=== PATIENT | male | born 1965 | race Caucasian/White ===

== ENCOUNTER 2023-08-23 18:47 | Inpatient (IN) ==
[2023-08-23] MEDS: EPINEPHrine/NSS 4 MG/254 ML BAG IV SCH (19:14)
[2023-08-23] MEDS ORDERED: EPINEPHrine/NSS 4 MG/254 ML BAG IV SCH (19:15)
[2023-08-23 19:24] LABS: iSTAT Creatinine 3.1 mg/dl (0.6-1.3); iSTAT Hemoglobin 12.6 g/dl (14.0-18.0); iSTAT Ionized Calcium 1.23 mmol/l (1.12-1.32); iSTAT Potassium 4.7 mmol/L (3.3-5.0)
[2023-08-23 19:24] LABS: iSTAT Arterial Blood Gas HCO3 39 meg/L (19-24); iSTAT Arterial Blood Gas pCO2 62 mmHg (35-46); iSTAT Arterial Blood Gas pO2 184 mmHg (80-95); iSTAT Carbon Dioxide > 40 mmol/L (24-31); iSTAT Hematocrit 32 % (42-52); iSTAT Hemoglobin 10.9 g/dl (14.0-18.0); iSTAT Potassium 3.7 mmol/L (3.3-5.0); iSTAT Sodium 144 mmol/L (135-144)
[2023-08-23 19:32] LABS: Hematocrit (blood only) 35.5 % (42.0-52.0); Hemoglobin 11.8 g/dl (14.0-18.0); Mean Corpuscular Hemoglobin 26.9 pg (25.0-34.0); Mean Corpuscular Hgb Conc 33.2 g/dL (32.0-36.0); Mean Corpuscular Volume 80.9 fL (80.0-100.0); Platelet Count 154 K/uL (130-400); RDW Coefficient of Variation 13.9 % (11.5-14.5); RDW Standard Deviation 40.7 fL (36.4-46.3); Red Blood Count 4.39 M/uL (4.70-6.10); White Blood Count 19.63 K/ul (4.8-10.8)
--- NOTE | 2023-08-23 19:43 | Emergency Department Note ---
Impression & Plan Cardiac arrest, Respiratory failure, Septic shock ED Provider Note NAME: MARITA LEONE AGE: 57 SEX: M : 1965 ARRIVES VIA: Ambulance INFORMANT: EMS ED PROVIDER(S): Fermin Webb DO CHIEF COMPLAINT: Unresponsive HPI: Patient is a 57-year-old male who presents to the ER brought in by EMS unresponsive. Per EMS he was found to be altered and unresponsive since around 5 PM tonight. They checked his blood sugars and they were in the mid 300s. Additional history was obtained from who eventually presented at bedside. She notes that on Monday patient was intermittently confused but he improved on Monday and Monday and was doing well. He was not feeling well this morning. She then found him unresponsive and called EMS later in the day. Patient has a reported history of aortic issues and cardiac issues. When they found him he was unresponsive and he was placed on 15 L nasal cannula as he was hypoxic. They believe that he is a full code. ADDITIONAL HISTORY OBTAINED: Per HPI Chronic Medical/Social Conditions Affecting Care: Per HPI PAST MEDICAL HISTORY:See Below PAST SURGICAL HISTORY:See Below FAMILY HISTORY:See Below SOCIAL HISTORY:See Below HOME MEDICATIONS:See Below ALLERGIES:See Below VITALS:See Below PHYSICAL EXAMINATION: GENERAL: Lying in bed unresponsive on 15 L, pulseless EYE EXAM: Pupils are 2 mm and reactive OROPHARYNX: Dry mucous membranes NECK: supple, no nuchal rigidity, no adenopathy, non-tender LUNGS: No respiratory effort HEART: No heart sounds ABDOMEN: abdomen soft, non-tender, normo-active bowel sounds, no masses, no rebound or guarding. BACK: Back is symmetrical on inspection and there is no deformity, no midline tenderness, no CVA tenderness. SKIN: no rashes and no bruising UPPER EXTREMITIES: upper extremities are grossly normal. LOWER EXTREMITIES: No pitting edema. NEURO EXAM: GCS 3 MEDICAL DECISION MAKING: Patient is a 57-year-old male who was brought in by EMS. Received medical command call and he was unresponsive on 15 L and hypotensive. Upon arrival to the ER he was found to be pulseless with no respiratory effort. GIANNI PAINTING was called. He was transferred to our stretcher and CPR started. He underwent 5 doses of epinephrine, 3 doses of bicarb and calcium gluconate. I performed a limited bedside ultrasound intermittently and eventually he regained ROSC on ultrasound. Initially patient was in PEA. I intubated him while CPR was in progress. Please see cook ice cream note as they placed a central line while I was intubating in the right groin. Once ROSC was obtained patient was given IV fluids and he slowly became hypotensive down to the 70s. Epinephrine drip was started. This titrated up to 0.4 mcg/kg. CT of the head, chest abdomen pelvis was obtained and showed bilateral pneumonia. ET tube was in place. Was given a total of 2.5 L of normal saline while in the ER and additional liter by EMS just prior to arrival for more than 30 cc/kg total. Patient was given vancomycin and IV Rocephin. Davis was placed and urine was showing dark and cloudy. Discussed with the and patient is a full code currently. Discussed with the hospitalist and patient was taken to the ICU following cardiac arrest and septic shock. Labs were remarkable for leukocytosis of 20,000 with a mild anemia 11. INR at 3.2. BMP is fairly unremarkable. Troponin was mildly elevated. Glucose was elevated at 320. Patient was placed on insulin drip. Lactate was elevated in the fours. T. bili LFTs shows a mild transaminitis. Troponin mildly up at 159. Procalcitonin was greater than 100. UA did show leuks, whites and +4 bacteria. Will cover both the urine at this time as well as pulmonary although I question of the pulmonary secondary to CPR/pulmonary contusions. This was discussed with again both the hospitalist and Jw who is on-call for the ICU. Patient was taken to the ICU emergently. Repeat physical exam following cardiac arrest patient was a GCS 3 T. He was intubated without the use of any medications. Throughout the stay in the ER epinephrine was titrated up and down appropriately to correlate with blood pressures which were waxing and waning. Of note EKG did show ST abnormalities although I favor this is all secondary to septic shock as discussed previously. Consults/Care Managements Discussions: Per MDM Triage Nursing notes reviewed. Limited review of prior medical records performed Vital Signs: reviewed and remarkable for hypoxic, pulseless Differential diagnosis: Differential diagnoses includes but is not limited to toxic, metabolic, infectious, traumatic, cardiac, neurologic, hematologic, psychiatric and inflammatory etiologies. ER treatment provided: See below Diagnostics interpreted by me include EKG and cardiac monitoring as listed below: -Cardiac Monitoring: An order was placed for continuous cardiac monitoring. The monitor shows a rate of 101 with sinus rhythm. -ECG: Sinus rhythm rate 98 Left axis PVCs Right bundle branch block ST depressions in the high lateral leads with T wave inversions Q waves in V3 and V4 Slight ST segment elevations in V3 and V4 -Laboratory studies:Interpreted by me as stated above in MDM and shown below. Imaging studies: Xrays: As interpreted by me: 1 view of the chest shows ET tube in place CTs show: CT of the head, chest abdomen pelvis as described above Procedures: Procedure #1: CPR was performed on room air my direction for 15 minutes following which the patient received 5 doses of epinephrine, 3 of bicarb and 1 calcium gluconate. Patient did have return of spontaneous circulation Procedure #2 EM PROCEDURE NOTE - Endotracheal Intubation PROCEDURE NOTE: Informed consent was not obtained by the patient. Verify Correct Patient: yes Procedure: Endotracheal intubation Indication: Cardiac arrest The procedure was done emergently. Description of the Procedure: The patient was seen and properly identified. The patient was pre-oxygenated and intubated after rapid sequence induction with meds: None. Intubation was performed using a glide 3.0 curve blade and a 7.5 cuffed endotracheal tube. The tube was visualized going through the cords and secured with the 23 cm maria guadalupe at the lips. The patient had good bilateral breath sounds in the axillae with good chest rise. Proper ET tube placement was confirmed by end tidal CO2 detector. The patient tolerated the procedure well. Critical Care: I have personally spent 130 minutes of critical care time in the direct management of this patient. This includes bedside care, interpretation of diagnostic studies, and testing, discussion with consultants, patient, and family members, and other required patient management activities. This 130 minutes is in excess of all separately billable procedures. Past Med/Surg History Social History Smoking Status: Unknown if ever smoked Feels Safe at Home: Yes Allergies Allergies Allergy/AdvReac Type Severity Reaction Status Date / Time bee venom protein (honey bee) Allergy Unknown Verified 08/23/23 20:23 Iodinated Contrast Media Allergy Hives Verified 08/23/23 20:23 Penicillins Allergy Hives Verified 08/23/23 20:23 Home Meds Home Medications Medication Instructions Recorded Confirmed allopurinol 100 mg tablet 100 mg PO QAM 08/23/23 08/23/23 amlodipine 10 mg tablet 10 mg PO QAM 08/23/23 08/23/23 aspirin 81 mg chewable tablet 81 mg PO DAILY 08/23/23 08/23/23 (Aspirin Childrens) atorvastatin 10 mg tablet 10 mg PO HS 08/23/23 08/23/23 carvedilol 25 mg tablet 25 mg PO BID 08/23/23 08/23/23 clonidine HCl 0.2 mg tablet 0.2 mg PO TID 08/23/23 08/23/23 famotidine 40 mg tablet 40 mg PO DAILYBB 08/23/23 08/23/23 furosemide 40 mg tablet 20 mg PO Q OTHER DAY 08/23/23 08/23/23 gabapentin 300 mg capsule 300 mg PO TID 08/23/23 08/23/23 montelukast 10 mg tablet 10 mg PO DAILY 08/23/23 08/23/23 pregabalin 150 mg capsule 150 mg PO BID 08/23/23 08/23/23 tamsulosin 0.4 mg capsule 0.4 mg PO QAM 08/23/23 08/23/23 warfarin 1 mg tablet 1 mg PO DAILY 08/23/23 08/23/23 warfarin 5 mg tablet 5 mg PO DAILY 08/23/23 08/23/23 Results & Data (ED) Vital Signs Vital Signs - 24 hr 08/23/23 18:49 08/23/23 18:52 08/23/23 18:55 Temperature Temperature Source Pulse Rate 0 L 136 H Pulse Rate from SpO2 Sensor Respiratory Rate 69 H Blood Pressure Blood Pressure Mean Pulse Oximetry 49 L Oxygen Delivery Method Fraction of Inspired Oxygen Sepsis Recent Fever Within 48 Hours Sepsis New/Unexplained Change in Mental Status Sepsis Action Taken by Nursing End-Tidal CO2 08/23/23 18:57 08/23/23 18:57 08/23/23 19:00 Temperature 38.0 C H Temperature Source Skin Pulse Rate 0 L Pulse Rate from SpO2 Sensor Respiratory Rate 6 L Blood Pressure 60/32 L Blood Pressure Mean 39 Pulse Oximetry Oxygen Delivery Method Fraction of Inspired Oxygen Sepsis Recent Fever Within 48 Hours No Sepsis New/Unexplained Change in Mental Status No Sepsis Action Taken by Nursing No Action Required End-Tidal CO2 77 08/23/23 19:00 08/23/23 19:03 08/23/23 19:04 Temperature Temperature Source Pulse Rate 34 L 100 H Pulse Rate from SpO2 Sensor 103 H Respiratory Rate 25 H Blood Pressure 114/69 Blood Pressure Mean 77 Pulse Oximetry 84 L Oxygen Delivery Method Ambu-Bag Fraction of Inspired Oxygen Sepsis Recent Fever Within 48 Hours Sepsis New/Unexplained Change in Mental Status Sepsis Action Taken by Nursing End-Tidal CO2 56 08/23/23 19:04 08/23/23 19:05 08/23/23 19:10 Temperature Temperature Source Pulse Rate 98 H 95 H 119 H Pulse Rate from SpO2 Sensor 95 H 93 H 117 H Respiratory Rate 26 H 28 H 36 H Blood Pressure Blood Pressure Mean Pulse Oximetry 95 94 100 Oxygen Delivery Method Ambu-Bag Ambu-Bag Ambu-Bag Fraction of Inspired Oxygen Sepsis Recent Fever Within 48 Hours Sepsis New/Unexplained Change in Mental Status Sepsis Action Taken by Nursing End-Tidal CO2 67 52 33 08/23/23 19:10 08/23/23 19:11 08/23/23 19:11 Temperature Temperature Source Pulse Rate 103 H Pulse Rate from SpO2 Sensor 108 H Respiratory Rate 28 H Blood Pressure 74/56 L 94/60 L Blood Pressure Mean 61 69 Pulse Oximetry 100 Oxygen Delivery Method Mechanical Vent Fraction of Inspired Oxygen Sepsis Recent Fever Within 48 Hours Sepsis New/Unexplained Change in Mental Status Sepsis Action Taken by Nursing End-Tidal CO2 38 08/23/23 19:13 08/23/23 19:13 08/23/23 19:15 Temperature Temperature Source Pulse Rate 120 H Pulse Rate from SpO2 Sensor 103 H Respiratory Rate 31 H Blood Pressure 91/66 L 79/56 L Blood Pressure Mean 75 65 Pulse Oximetry 99 Oxygen Delivery Method Mechanical Vent Fraction of Inspired Oxygen Sepsis Recent Fever Within 48 Hours Sepsis New/Unexplained Change in Mental Status Sepsis Action Taken by Nursing End-Tidal CO2 27 08/23/23 19:15 08/23/23 19:16 08/23/23 19:16 Temperature Temperature Source Pulse Rate 108 H 109 H Pulse Rate from SpO2 Sensor 110 H 105 H Respiratory Rate 26 H 27 H Blood Pressure 83/54 L Blood Pressure Mean 61 Pulse Oximetry 100 100 Oxygen Delivery Method Mechanical Vent Mechanical Vent Fraction of Inspired Oxygen Sepsis Recent Fever Within 48 Hours Sepsis New/Unexplained Change in Mental Status Sepsis Action Taken by Nursing End-Tidal CO2 35 33 08/23/23 19:18 08/23/23 19:18 08/23/23 19:19 Temperature Temperature Source Pulse Rate 108 H 115 H Pulse Rate from SpO2 Sensor 117 H 108 H Respiratory Rate 25 H 25 H Blood Pressure 84/46 L Blood Pressure Mean 62 Pulse Oximetry 96 98 Oxygen Delivery Method Mechanical Vent Mechanical Vent Fraction of Inspired Oxygen Sepsis Recent Fever Within 48 Hours Sepsis New/Unexplained Change in Mental Status Sepsis Action Taken by Nursing End-Tidal CO2 29 33 08/23/23 19:19 08/23/23 19:20 08/23/23 19:21 Temperature Temperature Source Pulse Rate 117 H Pulse Rate from SpO2 Sensor 116 H 110 H Respiratory Rate 27 H 24 Blood Pressure 74/48 L Blood Pressure Mean 58 Pulse Oximetry 98 100 Oxygen Delivery Method Mechanical Vent Mechanical Vent Fraction of Inspired Oxygen Sepsis Recent Fever Within 48 Hours Sepsis New/Unexplained Change in Mental Status Sepsis Action Taken by Nursing End-Tidal CO2 29 33 08/23/23 19:21 08/23/23 19:23 08/23/23 19:23 Temperature Temperature Source Pulse Rate 115 H Pulse Rate from SpO2 Sensor 115 H Respiratory Rate 27 H Blood Pressure 78/40 L 90/73 L Blood Pressure Mean 63 78 Pulse Oximetry 100 Oxygen Delivery Method Mechanical Vent Fraction of Inspired Oxygen Sepsis Recent Fever Within 48 Hours Sepsis New/Unexplained Change in Mental Status Sepsis Action Taken by Nursing End-Tidal CO2 30 08/23/23 19:25 08/23/23 19:25 08/23/23 19:27 Temperature Temperature Source Pulse Rate 113 H 99 H Pulse Rate from SpO2 Sensor 113 H 101 H Respiratory Rate 24 22 Blood Pressure 117/101 H Blood Pressure Mean 109 Pulse Oximetry 99 100 Oxygen Delivery Method Mechanical Vent Mechanical Vent Fraction of Inspired Oxygen Sepsis Recent Fever Within 48 Hours Sepsis New/Unexplained Change in Mental Status Sepsis Action Taken by Nursing End-Tidal CO2 33 32 08/23/23 19:27 08/23/23 19:41 08/23/23 19:48 Temperature 40.6 C H Temperature Source Pulse Rate 94 H Pulse Rate from SpO2 Sensor Respiratory Rate 20 Blood Pressure 81/54 L Blood Pressure Mean 63 Pulse Oximetry 97 99 Oxygen Delivery Method Mechanical Vent Fraction of Inspired Oxygen Sepsis Recent Fever Within 48 Hours Sepsis New/Unexplained Change in Mental Status Sepsis Action Taken by Nursing End-Tidal CO2 33 08/23/23 19:48 08/23/23 19:53 08/23/23 19:53 Temperature 40.6 C H Temperature Source Pulse Rate 94 H Pulse Rate from SpO2 Sensor 172 H Respiratory Rate 22 Blood Pressure 73/45 L 91/53 L Blood Pressure Mean 55 62 Pulse Oximetry 94 Oxygen Delivery Method Fraction of Inspired Oxygen Sepsis Recent Fever Within 48 Hours Sepsis New/Unexplained Change in Mental Status Sepsis Action Taken by Nursing End-Tidal CO2 32 08/23/23 19:54 08/23/23 19:54 08/23/23 19:54 Temperature 40.6 C H Temperature Source Pulse Rate 92 H Pulse Rate from SpO2 Sensor 172 H Respiratory Rate 20 Blood Pressure Blood Pressure Mean Pulse Oximetry 97 Oxygen Delivery Method Mechanical Vent Mechanical Vent Fraction of Inspired Oxygen Sepsis Recent Fever Within 48 Hours Sepsis New/Unexplained Change in Mental Status Sepsis Action Taken by Nursing End-Tidal CO2 33 08/23/23 19:54 08/23/23 19:55 08/23/23 19:56 Temperature 40.6 C H 40.7 C H Temperature Source Pulse Rate 92 H 93 H Pulse Rate from SpO2 Sensor 164 H 157 H Respiratory Rate 21 24 Blood Pressure 94/53 L Blood Pressure Mean 72 Pulse Oximetry 99 94 Oxygen Delivery Method Fraction of Inspired Oxygen Sepsis Recent Fever Within 48 Hours Sepsis New/Unexplained Change in Mental Status Sepsis Action Taken by Nursing End-Tidal CO2 33 32 08/23/23 19:56 08/23/23 19:57 08/23/23 19:57 Temperature 40.6 C H Temperature Source Pulse Rate 94 H Pulse Rate from SpO2 Sensor 154 H Respiratory Rate 20 Blood Pressure 93/41 L 76/37 L Blood Pressure Mean 54 51 Pulse Oximetry 100 Oxygen Delivery Method Fraction of Inspired Oxygen Sepsis Recent Fever Within 48 Hours Sepsis New/Unexplained Change in Mental Status Sepsis Action Taken by Nursing End-Tidal CO2 33 08/23/23 19:59 08/23/23 19:59 08/23/23 19:59 Temperature 40.7 C H Temperature Source Pulse Rate 90 Pulse Rate from SpO2 Sensor 90 Respiratory Rate 21 Blood Pressure 75/41 L 67/46 L Blood Pressure Mean 51 54 Pulse Oximetry 100 Oxygen Delivery Method Fraction of Inspired Oxygen Sepsis Recent Fever Within 48 Hours Sepsis New/Unexplained Change in Mental Status Sepsis Action Taken by Nursing End-Tidal CO2 34 08/23/23 20:00 08/23/23 20:01 08/23/23 20:01 Temperature 40.7 C H 40.7 C H Temperature Source Pulse Rate 92 H 93 H Pulse Rate from SpO2 Sensor 91 H 92 H Respiratory Rate 21 22 Blood Pressure 84/54 L Blood Pressure Mean 67 Pulse Oximetry 100 100 Oxygen Delivery Method Fraction of Inspired Oxygen Sepsis Recent Fever Within 48 Hours Sepsis New/Unexplained Change in Mental Status Sepsis Action Taken by Nursing End-Tidal CO2 32 34 08/23/23 20:02 08/23/23 20:02 08/23/23 20:03 Temperature 40.7 C H 40.7 C H Temperature Source Pulse Rate 94 H 92 H Pulse Rate from SpO2 Sensor 94 H 88 Respiratory Rate 21 20 Blood Pressure 88/65 L Blood Pressure Mean 73 Pulse Oximetry 100 100 Oxygen Delivery Method Fraction of Inspired Oxygen Sepsis Recent Fever Within 48 Hours Sepsis New/Unexplained Change in Mental Status Sepsis Action Taken by Nursing End-Tidal CO2 33 33 08/23/23 20:03 08/23/23 20:04 08/23/23 20:04 Temperature 40.7 C H Temperature Source Pulse Rate 92 H Pulse Rate from SpO2 Sensor 93 H Respiratory Rate 21 Blood Pressure 90/53 L 88/54 L Blood Pressure Mean 70 71 Pulse Oximetry 100 Oxygen Delivery Method Fraction of Inspired Oxygen Sepsis Recent Fever Within 48 Hours Sepsis New/Unexplained Change in Mental Status Sepsis Action Taken by Nursing End-Tidal CO2 34 08/23/23 20:05 08/23/23 20:05 08/23/23 20:06 Temperature 40.7 C H 40.7 C H Temperature Source Pulse Rate 92 H 90 Pulse Rate from SpO2 Sensor 89 89 Respiratory Rate 21 21 Blood Pressure 90/51 L Blood Pressure Mean 70 Pulse Oximetry 100 100 Oxygen Delivery Method Fraction of Inspired Oxygen Sepsis Recent Fever Within 48 Hours Sepsis New/Unexplained Change in Mental Status Sepsis Action Taken by Nursing End-Tidal CO2 34 34 08/23/23 20:06 08/23/23 20:07 08/23/23 20:07 Temperature 40.7 C H Temperature Source Pulse Rate 87 Pulse Rate from SpO2 Sensor 86 Respiratory Rate 21 Blood Pressure 94/52 L 90/55 L Blood Pressure Mean 72 68 Pulse Oximetry 100 Oxygen Delivery Method Fraction of Inspired Oxygen Sepsis Recent Fever Within 48 Hours Sepsis New/Unexplained Change in Mental Status Sepsis Action Taken by Nursing End-Tidal CO2 35 08/23/23 20:08 08/23/23 20:08 08/23/23 20:08 Temperature 40.7 C H Temperature Source Pulse Rate 96 H 86 Pulse Rate from SpO2 Sensor 87 Respiratory Rate 21 18 Blood Pressure 88/54 L Blood Pressure Mean 69 Pulse Oximetry 98 100 Oxygen Delivery Method Fraction of Inspired Oxygen 70 Sepsis Recent Fever Within 48 Hours Sepsis New/Unexplained Change in Mental Status Sepsis Action Taken by Nursing End-Tidal CO2 32 34 08/23/23 20:09 08/23/23 20:09 08/23/23 20:10 Temperature 40.7 C H 40.7 C H Temperature Source Pulse Rate 85 92 H Pulse Rate from SpO2 Sensor 87 92 H Respiratory Rate 20 19 Blood Pressure 91/57 L Blood Pressure Mean 65 Pulse Oximetry 100 100 Oxygen Delivery Method Fraction of Inspired Oxygen Sepsis Recent Fever Within 48 Hours Sepsis New/Unexplained Change in Mental Status Sepsis Action Taken by Nursing End-Tidal CO2 36 35 08/23/23 20:10 08/23/23 20:12 08/23/23 20:12 Temperature 40.7 C H Temperature Source Pulse Rate 83 Pulse Rate from SpO2 Sensor 85 Respiratory Rate 20 Blood Pressure 79/48 L 92/52 L Blood Pressure Mean 64 67 Pulse Oximetry 100 Oxygen Delivery Method Fraction of Inspired Oxygen Sepsis Recent Fever Within 48 Hours Sepsis New/Unexplained Change in Mental Status Sepsis Action Taken by Nursing End-Tidal CO2 35 08/23/23 20:13 08/23/23 20:13 08/23/23 20:14 Temperature 40.7 C H 40.7 C H Temperature Source Pulse Rate 82 84 Pulse Rate from SpO2 Sensor 82 85 Respiratory Rate 20 19 Blood Pressure 94/54 L Blood Pressure Mean 61 Pulse Oximetry 99 99 Oxygen Delivery Method Fraction of Inspired Oxygen Sepsis Recent Fever Within 48 Hours Sepsis New/Unexplained Change in Mental Status Sepsis Action Taken by Nursing End-Tidal CO2 35 35 08/23/23 20:14 08/23/23 20:15 08/23/23 20:15 Temperature 40.7 C H Temperature Source Pulse Rate 83 Pulse Rate from SpO2 Sensor 83 Respiratory Rate 20 Blood Pressure 91/58 L 93/54 L Blood Pressure Mean 68 61 Pulse Oximetry 99 Oxygen Delivery Method Fraction of Inspired Oxygen Sepsis Recent Fever Within 48 Hours Sepsis New/Unexplained Change in Mental Status Sepsis Action Taken by Nursing End-Tidal CO2 35 08/23/23 20:16 08/23/23 20:16 08/23/23 20:17 Temperature 40.7 C H 40.7 C H Temperature Source Pulse Rate 92 H 83 Pulse Rate from SpO2 Sensor 85 84 Respiratory Rate 19 18 Blood Pressure 88/51 L Blood Pressure Mean 58 Pulse Oximetry 99 99 Oxygen Delivery Method Fraction of Inspired Oxygen Sepsis Recent Fever Within 48 Hours Sepsis New/Unexplained Change in Mental Status Sepsis Action Taken by Nursing End-Tidal CO2 35 34 08/23/23 20:17 08/23/23 20:18 08/23/23 20:18 Temperature 40.7 C H Temperature Source Pulse Rate 82 Pulse Rate from SpO2 Sensor 84 Respiratory Rate 20 Blood Pressure 89/62 L 99/56 L Blood Pressure Mean 69 69 Pulse Oximetry 98 Oxygen Delivery Method Fraction of Inspired Oxygen Sepsis Recent Fever Within 48 Hours Sepsis New/Unexplained Change in Mental Status Sepsis Action Taken by Nursing End-Tidal CO2 35 08/23/23 20:19 08/23/23 20:19 08/23/23 20:20 Temperature 40.7 C H 40.7 C H Temperature Source Pulse Rate 82 80 Pulse Rate from SpO2 Sensor 83 81 Respiratory Rate 20 19 Blood Pressure 93/60 L Blood Pressure Mean 67 Pulse Oximetry 98 98 Oxygen Delivery Method Fraction of Inspired Oxygen Sepsis Recent Fever Within 48 Hours Sepsis New/Unexplained Change in Mental Status Sepsis Action Taken by Nursing End-Tidal CO2 34 34 08/23/23 20:20 08/23/23 20:22 08/23/23 20:22 Temperature 40.6 C H Temperature Source Pulse Rate 89 Pulse Rate from SpO2 Sensor 86 Respiratory Rate 18 Blood Pressure 77/53 L 99/60 L Blood Pressure Mean 57 70 Pulse Oximetry 98 Oxygen Delivery Method Fraction of Inspired Oxygen Sepsis Recent Fever Within 48 Hours Sepsis New/Unexplained Change in Mental Status Sepsis Action Taken by Nursing End-Tidal CO2 35 08/23/23 20:23 08/23/23 20:23 08/23/23 20:25 Temperature 40.6 C H 40.6 C H Temperature Source Pulse Rate 81 82 Pulse Rate from SpO2 Sensor 82 83 Respiratory Rate 18 19 Blood Pressure 81/54 L Blood Pressure Mean 66 Pulse Oximetry 98 98 Oxygen Delivery Method Fraction of Inspired Oxygen Sepsis Recent Fever Within 48 Hours Sepsis New/Unexplained Change in Mental Status Sepsis Action Taken by Nursing End-Tidal CO2 36 35 08/23/23 20:25 08/23/23 20:26 08/23/23 20:26 Temperature 40.6 C H Temperature Source Pulse Rate 82 Pulse Rate from SpO2 Sensor 82 Respiratory Rate 18 Blood Pressure 106/56 L 105/59 L Blood Pressure Mean 71 69 Pulse Oximetry 99 Oxygen Delivery Method Fraction of Inspired Oxygen Sepsis Recent Fever Within 48 Hours Sepsis New/Unexplained Change in Mental Status Sepsis Action Taken by Nursing End-Tidal CO2 36 08/23/23 20:27 08/23/23 20:27 08/23/23 20:28 Temperature 40.6 C H 40.6 C H Temperature Source Pulse Rate 80 81 Pulse Rate from SpO2 Sensor 82 84 Respiratory Rate 19 18 Blood Pressure 102/57 L Blood Pressure Mean 71 Pulse Oximetry 98 98 Oxygen Delivery Method Fraction of Inspired Oxygen Sepsis Recent Fever Within 48 Hours Sepsis New/Unexplained Change in Mental Status Sepsis Action Taken by Nursing End-Tidal CO2 35 34 08/23/23 20:28 08/23/23 20:29 08/23/23 20:29 Temperature 40.6 C H Temperature Source Pulse Rate 83 Pulse Rate from SpO2 Sensor 84 Respiratory Rate 18 Blood Pressure 89/67 L 101/56 L Blood Pressure Mean 74 70 Pulse Oximetry 98 Oxygen Delivery Method Fraction of Inspired Oxygen Sepsis Recent Fever Within 48 Hours Sepsis New/Unexplained Change in Mental Status Sepsis Action Taken by Nursing End-Tidal CO2 35 08/23/23 20:30 08/23/23 20:30 08/23/23 20:31 Temperature 40.5 C H Temperature Source Pulse Rate 84 Pulse Rate from SpO2 Sensor 87 Respiratory Rate 19 Blood Pressure 99/58 L 97/57 L Blood Pressure Mean 77 77 Pulse Oximetry 98 Oxygen Delivery Method Fraction of Inspired Oxygen Sepsis Recent Fever Within 48 Hours Sepsis New/Unexplained Change in Mental Status Sepsis Action Taken by Nursing End-Tidal CO2 35 08/23/23 20:31 08/23/23 20:32 08/23/23 20:32 Temperature 40.5 C H 40.5 C H Temperature Source Pulse Rate 81 87 Pulse Rate from SpO2 Sensor 82 87 Respiratory Rate 19 18 Blood Pressure 98/58 L Blood Pressure Mean 80 Pulse Oximetry 98 98 Oxygen Delivery Method Fraction of Inspired Oxygen Sepsis Recent Fever Within 48 Hours Sepsis New/Unexplained Change in Mental Status Sepsis Action Taken by Nursing End-Tidal CO2 35 34 08/23/23 20:33 08/23/23 20:33 08/23/23 20:34 Temperature 40.5 C H Temperature Source Pulse Rate 80 Pulse Rate from SpO2 Sensor 81 Respiratory Rate 20 Blood Pressure 106/54 L 100/57 L Blood Pressure Mean 68 74 Pulse Oximetry 98 Oxygen Delivery Method Fraction of Inspired Oxygen Sepsis Recent Fever Within 48 Hours Sepsis New/Unexplained Change in Mental Status Sepsis Action Taken by Nursing [facility]2 36 08/23/23 20:34 08/23/23 20:35 08/23/23 20:35 Temperature 40.5 C H 40.5 C H Temperature Source Pulse Rate 81 85 Pulse Rate from SpO2 Sensor 82 87 Respiratory Rate 20 19 Blood Pressure 99/61 L Blood Pressure Mean 82 Pulse Oximetry 98 98 Oxygen Delivery Method Fraction of Inspired Oxygen Sepsis Recent Fever Within 48 Hours Sepsis New/Unexplained Change in Mental Status Sepsis Action Taken by Nursing [facility]2 35 34 08/23/23 20:36 08/23/23 20:36 08/23/23 20:37 Temperature 40.5 C H 40.4 C H Temperature Source Pulse Rate 91 H 84 Pulse Rate from SpO2 Sensor 89 84 Respiratory Rate 20 19 Blood Pressure 99/63 L Blood Pressure Mean 78 Pulse Oximetry 98 98 Oxygen Delivery Method Fraction of Inspired Oxygen Sepsis Recent Fever Within 48 Hours Sepsis New/Unexplained Change in Mental Status Sepsis Action Taken by Nursing [facility]Tidal CO2 34 34 08/23/23 20:37 08/23/23 20:38 08/23/23 20:38 Temperature 40.4 C H Temperature Source Pulse Rate 83 Pulse Rate from SpO2 Sensor 84 Respiratory Rate 18 Blood Pressure 116/62 96/61 L Blood Pressure Mean 76 69 Pulse Oximetry 98 Oxygen Delivery Method Fraction of Inspired Oxygen Sepsis Recent Fever Within 48 Hours Sepsis New/Unexplained Change in Mental Status Sepsis Action Taken by Nursing End-Tidal CO2 34 08/23/23 20:39 08/23/23 20:39 08/23/23 20:40 Temperature 40.4 C H 40.4 C H Temperature Source Pulse Rate 87 90 Pulse Rate from SpO2 Sensor 85 88 Respiratory Rate 19 27 H Blood Pressure 89/61 L Blood Pressure Mean 77 Pulse Oximetry 98 99 Oxygen Delivery Method Fraction of Inspired Oxygen Sepsis Recent Fever Within 48 Hours Sepsis New/Unexplained Change in Mental Status Sepsis Action Taken by Nursing [facility]-T[facility] CO2 34 29 08/23/23 20:40 08/23/23 20:41 08/23/23 20:41 Temperature 40.4 C H Temperature Source Pulse Rate 85 Pulse Rate from SpO2 Sensor 84 Respiratory Rate 19 Blood Pressure 107/63 103/64 Blood Pressure Mean 69 76 Pulse Oximetry 98 Oxygen Delivery Method Fraction of Inspired Oxygen Sepsis Recent Fever Within 48 Hours Sepsis New/Unexplained Change in Mental Status Sepsis Action Taken by Nursing [facility]-Tidal CO2 34 08/23/23 20:42 08/23/23 20:42 08/23/23 20:43 Temperature 40.3 C H 40.3 C H Temperature Source Pulse Rate 85 85 Pulse Rate from SpO2 Sensor 84 87 Respiratory Rate 24 19 Blood Pressure 100/62 Blood Pressure Mean 66 Pulse Oximetry 98 98 Oxygen Delivery Method Fraction of Inspired Oxygen Sepsis Recent Fever Within 48 Hours Sepsis New/Unexplained Change in Mental Status Sepsis Action Taken by Nursing [facility]2 31 33 08/23/23 20:43 Temperature Temperature Source Pulse Rate Pulse Rate from SpO2 Sensor Respiratory Rate Blood Pressure 105/62 Blood Pressure Mean 87 Pulse Oximetry Oxygen Delivery Method Fraction of Inspired Oxygen Sepsis Recent Fever Within 48 Hours Sepsis New/Unexplained Change in Mental Status Sepsis Action Taken by Nursing [facility] Laboratory Data 08/23/23 19:08 08/23/23 19:08 Lab Results 08/23/23 08/23/23 08/23/23 Range/Units 19:04 19:08 19:10 WBC 19.63 H (4.8-10.8) K/ul RBC 4.39 L (4.70-6.10) M/uL Hgb 11.8 L (14.0-18.0) g/dl POC Hgb 12.6 L 10.9 L (14.0-18.0) g/dl Hct 35.5 L (42.0-52.0) % POC Hct 37 L 32 L (42-52) % MCV 80.9 (80.0-100.0) fL MCH 26.9 (25.0-34.0) pg MCHC 33.2 (32.0-36.0) g/dL RDW Std Deviation 40.7 (36.4-46.3) fL RDW Coeff of Malika 13.9 (11.5-14.5) % Plt Count 154 (130-400) K/uL MPV 11.0 (9.4-12.4) fL Immature Gran % (Auto) 2.0 % Neut % (Auto) 85.6 % Lymph % (Auto) 7.4 % Page % (Auto) 4.3 % Eos % (Auto) 0.3 % Baso % (Auto) 0.4 % Neut # (Auto) 16.81 H (1.40-6.50) K/uL Lymph # (Auto) 1.45 (1.20-3.40) K/uL Page # (Auto) 0.85 H (0.11-0.59) K/uL Eos # (Auto) 0.06 (0.00-0.50) K/uL Baso # (Auto) 0.07 (0.00-0.20) K/uL Immature Gran # (Auto) 0.39 H (0.01-0.20) K/uL Basophilic Stippling Occasional POC pH 7.40 (7.35-7.45) POC pCO2 62 H (35-46) mmHg POC pO2 184 H (80-95) mmHg POC HCO3 39 H (19-24) mitra/L POC Base Excess 14.0 H (-9-1.8) mirta/L POC ABG O2 Sat 100.0 H (90-95) % POC Sodium 133 L 144 (135-144) mmol/L Sodium 139 (136-145) mmol/L POC Potassium 4.7 3.7 (3.3-5.0) mmol/L Potassium 4.0 (3.5-5.1) mmol/L POC Chloride 99 L (101-112) mmol/L Chloride 100 (98-107) mmol/L Carbon Dioxide 32 (21-32) mmol/L POC Total CO2 27 > 40 H* (24-31) mmol/L Anion Gap 7 (3-11) POC Anion Gap 12.0 L (16-25) mmol/L POC BUN 46 H (7-18) mg/dl BUN 52 H (6-23) mg/dl Creatinine 2.70 H (0.6-1.4) mg/dl POC Creatinine 3.1 H (0.6-1.3) mg/dl Est Cr Clr Drug Dosing 32.7 ml/min Est GFR ( Amer) 28.8 ml/min Est GFR (Non-Af Amer) 24.9 ml/min BUN/Creatinine Ratio 19.3 (10-20) Glucose 326 H* (70-99(Fasting)) mg/dl POC Glucose (70-99) mg/dl POC Glucose (other) 316 H (70-99) mg/dl Lactate 4.8 H* (0.4-2.0) mmol/L Calcium 8.7 (8.6-10.3) mg/dl POC Ioniz Calcium Alisha 1.23 (1.12-1.32) mmol/l Magnesium 1.9 (1.7-2.4) mg/dl Total Bilirubin 1.1 H (0.2-1.0) mg/dl Direct Bilirubin 0.6 H (0-0.2) mg/dl AST 176 H (13-39) U/L ALT 109 H (7-52) U/L Alkaline Phosphatase 201 H (34-104) U/L Troponin I High Sens 29.1 H (0-20) pg/ml Total Protein 5.0 L (6.0-8.3) gm/dl Albumin 2.1 L (3.4-5.0) gm/dl Procalcitonin > 100.00 H (0-0.5) ng/ml Urine Color Urine Appearance (Clear) Urine pH (4.5-7.5) Ur Specific Opp (1.000-1.030) Urine Protein (Negative) Urine Glucose (UA) (Negative) Urine Ketones (Negative) Urine Blood (Negative) Urine Nitrite (Negative) Urine Bilirubin (Negative) Urine Urobilinogen (Negative) Ur Leukocyte Esterase (Negative) Urine WBC (Auto) (0-5) /hpf Urine RBC (Auto) (0-2) /hpf U Hyaline Cast (Auto) (0-2) /lpf U Epithel Cells (Auto) (0-2) /hpf Urine Bacteria (Auto) (None Seen) 08/23/23 08/23/23 Range/Units 19:16 20:26 WBC (4.8-10.8) K/ul RBC (4.70-6.10) M/uL Hgb (14.0-18.0) g/dl POC Hgb (14.0-18.0) g/dl Hct (42.0-52.0) % POC Hct (42-52) % MCV (80.0-100.0) fL MCH (25.0-34.0) pg MCHC (32.0-36.0) g/dL RDW Std Deviation (36.4-46.3) fL RDW Coeff of Malika (11.5-14.5) % Plt Count (130-400) K/uL MPV (9.4-12.4) fL Immature Gran % (Auto) % Neut % (Auto) % Lymph % (Auto) % Page % (Auto) % Eos % (Auto) % Baso % (Auto) % Neut # (Auto) (1.40-6.50) K/uL Lymph # (Auto) (1.20-3.40) K/uL Page # (Auto) (0.11-0.59) K/uL Eos # (Auto) (0.00-0.50) K/uL Baso # (Auto) (0.00-0.20) K/uL Immature Gran # (Auto) (0.01-0.20) K/uL Basophilic Stippling POC pH (7.35-7.45) POC pCO2 (35-46) mmHg POC pO2 (80-95) mmHg POC HCO3 (19-24) mirta/L POC Base Excess (-9-1.8) mirta/L POC ABG O2 Sat (90-95) % POC Sodium (135-144) mmol/L Sodium (136-145) mmol/L POC Potassium (3.3-5.0) mmol/L Potassium (3.5-5.1) mmol/L POC Chloride (101-112) mmol/L Chloride (98-107) mmol/L Carbon Dioxide (21-32) mmol/L POC Total CO2 (24-31) mmol/L Anion Gap (3-11) POC Anion Gap (16-25) mmol/L POC BUN (7-18) mg/dl BUN (6-23) mg/dl Creatinine (0.6-1.4) mg/dl POC Creatinine (0.6-1.3) mg/dl Est Cr Clr Drug Dosing ml/min Est GFR ( Amer) ml/min Est GFR (Non-Af Amer) ml/min BUN/Creatinine Ratio (10-20) Glucose (70-99(Fasting)) mg/dl POC Glucose 309 H* (70-99) mg/dl POC Glucose (other) (70-99) mg/dl Lactate (0.4-2.0) mmol/L Calcium (8.6-10.3) mg/dl POC Ioniz Calcium Alisha (1.12-1.32) mmol/l Magnesium (1.7-2.4) mg/dl Total Bilirubin (0.2-1.0) mg/dl Direct Bilirubin (0-0.2) mg/dl AST (13-39) U/L ALT (7-52) U/L Alkaline Phosphatase (34-104) U/L Troponin I High Sens (0-20) pg/ml Total Protein (6.0-8.3) gm/dl Albumin (3.4-5.0) gm/dl Procalcitonin (0-0.5) ng/ml Urine Color Dark Yellow Urine Appearance Turbid A (Clear) Urine pH 8.5 H (4.5-7.5) Ur Specific Opp 1.016 (1.000-1.030) Urine Protein 2+ H (Negative) Urine Glucose (UA) 1+ H (Negative) Urine Ketones Negative (Negative) Urine Blood 3+ H (Negative) Urine Nitrite Negative (Negative) Urine Bilirubin 1+ H (Negative) Urine Urobilinogen Negative (Negative) Ur Leukocyte Esterase 3+ H (Negative) Urine WBC (Auto) >50 H (0-5) /hpf Urine RBC (Auto) >20 H (0-2) /hpf U Hyaline Cast (Auto) 0-2 (0-2) /lpf U Epithel Cells (Auto) 6-10 H (0-2) /hpf Urine Bacteria (Auto) 4+ H (None Seen) Administered Medications Linezolid (Zyvox) 600 mg in 300 mls @ 300 mls/hr IV Q12H [facility] Stop: 08/30/23 20:59 Last Admin: 08/23/23 22:49 Dose: 300 mls/hr Documented By: CRYSTAL Meropenem 500 mg/ Syringe 10 mls @ 2 mls/min IV Q8H [facility]; Protocol Stop: 08/30/23 20:59 Last Admin: 08/23/23 22:50 Dose: 2 mls/min Documented By: CRYSTAL Parenteral Electrolytes (Plasma-Lyte A Ph 7.4) 1,000 mls @ 100 mls/hr IV .Q10H [facility] Stop: 09/22/23 21:59 Last Admin: 08/23/23 23:19 Dose: 100 mls/hr Documented By: CRYSTAL Vasopressin 20 units/ Sodium (Chloride) 101 mls @ 12.12 mls/hr IV .Q8H20M [facility] Stop: 09/22/23 22:14 Last Admin: 08/23/23 22:39 Dose: 0.04 unit/min, 12.1 mls/hr Documented By: CRYSTAL Co-signed By: SHELIA Epinephrine HCl () 8 mg in 250 mls @ 60 mls/hr IV .Q4H10M [facility]; Protocol Stop: 09/22/23 22:14 Last Titration: 08/23/23 23:34 Dose: 0.5 mcg/kg/min, 75 mls/hr Documented By: Titration: 08/23/23 23:29 Dose: 0.49 mcg/kg/min, 73.5 mls/hr Documented By: Titration: 08/23/23 23:24 Dose: 0.48 mcg/kg/min, 72 mls/hr Documented By: Titration: 08/23/23 23:19 Dose: 0.47 mcg/kg/min, 70.5 mls/hr Documented By: Titration: 08/23/23 23:14 Dose: 0.46 mcg/kg/min, 69 mls/hr Documented By: Titration: 08/23/23 23:09 Dose: 0.45 mcg/kg/min, 67.5 mls/hr Documented By: Titration: 08/23/23 23:04 Dose: 0.44 mcg/kg/min, 66 mls/hr Documented By: Titration: 08/23/23 22:59 Dose: 0.43 mcg/kg/min, 64.5 mls/hr Documented By: Titration: 08/23/23 22:54 Dose: 0.42 mcg/kg/min, 63 mls/hr Documented By: Titration: 08/23/23 22:40 Dose: 0.41 mcg/kg/min, 61.5 mls/hr Documented By: Admin: 08/23/23 22:35 Dose: 0.4 mcg/kg/min, 60 mls/hr Documented By: MNM Co-signed By: SHELIA Propofol (Diprivan) 1,000 mg in 100 mls @ 9.6 mls/hr IV .[id number] [facility]; Protocol Stop: 08/26/23 22:11 Last Admin: 08/23/23 23:10 Dose: Not Given Documented By: MNM Heparin Sodium/Dextrose (Heparin Sodium/Dextrose) 25,000 units in 500 mls @ 19 mls/hr IV .Q24H [facility]; Protocol Stop: 09/22/23 22:11 Last Admin: 08/23/23 23:42 Dose: Not Given Documented By: MNM Norepinephrine Bitartrate (Levophed/D5w) 4 mg in 250 mls @ 42 mls/hr IV .Q5H58M [facility]; Protocol Stop: 09/22/23 22:11 Last Titration: 08/23/23 23:23 Dose: 0.14 mcg/kg/min, 42 mls/hr Documented By: Titration: 08/23/23 23:18 Dose: 0.12 mcg/kg/min, 36 mls/hr Documented By: Titration: 08/23/23 23:13 Dose: 0.1 mcg/kg/min, 30 mls/hr Documented By: Admin: 08/23/23 23:08 Dose: 0.08 mcg/kg/min, 24 mls/hr Documented By: CRYSTAL Co-signed By: SHELIA Insulin Human Regular 250 (units/ Sodium Chloride) 250 mls @ 3 mls/hr IV .Q24H [facility]; Protocol Stop: 09/22/23 22:59 Last Admin: 08/23/23 23:30 Dose: 3 units/hr, 3 mls/hr Documented By: CRYSTAL Co-signed By: JODIE Miscellaneous (Icu Protocol For Hyperglycemia) 1 each N/A ACHS [facility] Stop: 08/25/23 22:11 Last Admin: 08/23/23 23:42 Dose: Not Given Documented By: CRYSTAL Discontinued Medications Heparin Sodium/Dextrose (Heparin 38809 Unit/500 Ml D5w) Confirm Administered Dose 25,000 units IV .STK-MED ONE Stop: 08/23/23 22:23 Last Admin: 08/23/23 22:50 Dose: Not Given Documented By: CRYSTAL Ceftriaxone Sodium (Rocephin) 2,000 mg in 50 mls @ 100 mls/hr IV NOW STA Stop: 08/23/23 19:36 Last Infusion: 08/23/23 20:34 Dose: Infused Documented By: Admin: 08/23/23 19:53 Dose: 100 mls/hr Documented By: HEBERT Epinephrine HCl () 4 mg in 254 mls @ 6.096 mls/hr IV .Q24H [facility]; Protocol Stop: 09/22/23 19:59 Last Titration: 08/23/23 22:36 Dose: Infused Documented By: Titration: 08/23/23 19:59 Dose: 0.4 mcg/kg/min, 121.9 mls/hr Documented By: Titration: 08/23/23 19:45 Dose: 0.2 mcg/kg/min, 61 mls/hr Documented By: Titration: 08/23/23 19:19 Dose: 0.15 mcg/kg/min, 45.7 mls/hr Documented By: Admin: 08/23/23 19:14 Dose: 0.1 mcg/kg/min, 30.5 mls/hr Documented By: HEBERT Co-signed By: NIK Sodium Chloride (Nss) 1,000 mls @ 999 mls/hr IV .Q1H1M [facility] Stop: 08/23/23 22:00 Last Infusion: 08/23/23 22:19 Dose: Infused Documented By: Admin: 08/23/23 21:13 Dose: 999 mls/hr Documented By: Infusion: 08/23/23 21:03 Dose: Infused Documented By: Admin: 08/23/23 20:02 Dose: 999 mls/hr Documented By: HEBERT Vancomycin HCl 1,500 mg/ (Sodium Chloride) 530 mls @ 200 mls/hr IV NOW ONE Stop: 08/23/23 22:31 Last Infusion: 08/23/23 20:43 Dose: Infused Documented By: Admin: 08/23/23 20:32 Dose: 200 mls/hr Documented By: HEBERT Acetaminophen (Ofirmev) 1,000 mg in 100 mls @ 400 mls/hr IV NOW STA Stop: 08/23/23 20:09 Last Infusion: 08/23/23 20:20 Dose: Infused Documented By: Admin: 08/23/23 20:01 Dose: 400 mls/hr Documented By: HEBERT Parenteral Electrolytes (Plasma-Lyte A Ph 7.4) 1,000 mls @ 999 mls/hr IV .Q1H1M ONE Stop: 08/23/23 21:04 Last Infusion: 08/23/23 22:24 Dose: Infused Documented By: Admin: 08/23/23 20:20 Dose: 999 mls/hr Documented By: NIK Insulin Human Regular 250 (units/ Sodium Chloride) 250 mls @ 8 mls/hr IV .Q24H [facility]; Protocol Stop: 09/22/23 20:14 Last Titration: 08/23/23 22:19 Dose: Infused Documented By: CRYSTAL Co-signed By: SHELIA Admin: 08/23/23 20:33 Dose: 8 units/hr, 8 mls/hr Documented By: HEBERT Co-signed By: NIK Parenteral Electrolytes (Plasma-Lyte A Ph 7.4) 500 mls @ 999 mls/hr IV .Q31M ONE Stop: 08/23/23 22:42 Last Infusion: 08/23/23 23:20 Dose: Infused Documented By: Admin: 08/23/23 22:18 Dose: 999 mls/hr Documented By: CRYSTAL Sodium Chloride (Nss) 1,000 mls @ 100 mls/hr IV .Q10H [facility] Stop: 09/22/23 22:11 Last Admin: 08/23/23 23:43 Dose: Not Given Documented By: CRYSTAL Acetaminophen (Ofirmev) 1,000 mg in 100 mls @ 400 mls/hr IV NOW STA Stop: 08/23/23 23:05 Last Infusion: 08/23/23 23:42 Dose: Infused Documented By: Admin: 08/23/23 22:59 Dose: 400 mls/hr Documented By: CRYSTAL Hydrocortisone Sodium (Succinate 100 mg/ Syringe) 2 mls @ 4 mls/min IV NOW STA Stop: 08/23/23 22:51 Last Admin: 08/23/23 23:12 Dose: 4 mls/min Documented By: CRYSTAL Insulin Human Regular (Novolin-R Bolus From Bag) 3 units IV ONE ONE Stop: 08/23/23 23:01 Last Admin: 08/23/23 23:30 Dose: 3 units Documented By: CRYSTAL Co-signed By: JODIE Wong (Stat Iv Infusion Titration Per Protocol) 1 each N/A NOW STA Stop: 08/23/23 19:07 Last Admin: 08/23/23 20:32 Dose: Not Given Documented By: HEBERT Wong (Stat Iv Infusion Titration Per Protocol) 1 each N/A NOW STA Stop: 08/23/23 19:54 Last Admin: 08/23/23 20:32 Dose: Not Given Documented By: HEBERT Wong (Dka Goal Range 150-250 Mg/Dl) 1 each N/A ONE ONE Stop: 08/23/23 20:05 Last Admin: 08/23/23 21:13 Dose: Not Given Documented By: HEBERT Wong (Stat Iv Infusion Titration Per Protocol) 1 each N/A NOW STA Stop: 08/23/23 20:05 Last Admin: 08/23/23 20:32 Dose: Not Given Documented By: HEBERT Wong (Insulin Protocol Goal Range ) 1 each N/A ONE ONE Stop: 08/23/23 22:51 Last Admin: 08/23/23 23:40 Dose: Not Given Documented By: CRYSTAL Imaging Data Radiologist's Impression: Head CT 08/23/23 19:07 Exam(s): CT HEAD Without Contrast EXAM: CT Head Without Intravenous Contrast CLINICAL HISTORY: Reason for exam: AMS. TECHNIQUE: Axial computed tomography images of the head/brain without intravenous contrast. CTDI is 37.12 mGy and DLP is 624.41 mGy-cm. Automated exposure control was utilized for the study. A dose lowering technique was utilized adhering to the principles of ALARA. COMPARISON: No relevant prior studies available. FINDINGS: No acute intracranial hemorrhage. No midline shift or mass effect. The territorial mota-white matter differentiation is maintained throughout. Age-related cerebral volume loss. Periventricular and subcortical white matter hypoattenuation, consistent with chronic microangiopathy. The visualized orbits appear grossly unremarkable. The calvarium is intact. The visualized paranasal sinuses and mastoid air cells are grossly clear. IMPRESSION: No acute intracranial hemorrhage, midline shift, or mass effect. Electronically signed by: Ayad Mari MD 08/23/23 19:55 PM Abdomen/Pelvis CT 08/23/23 19:09 Exam(s): CT ABDOMEN + PELVIS Without Contrast EXAM: CT Abdomen and Pelvis Without Intravenous Contrast CLINICAL HISTORY: Reason for exam: AMS. TECHNIQUE: Axial computed tomography images of the abdomen and pelvis without intravenous contrast. CTDI [place] 32.8 [place] [address].529 mGy-cm. Automated exposure control was utilized for the study. A dose lowering technique was utilized adhering to the principles of ALARA. COMPARISON: No relevant prior studies available. FINDINGS: Lung bases: Unremarkable. No mass. No consolidation. ABDOMEN: Liver: Unremarkable. Gallbladder and bile ducts: Cholecystectomy. No ductal dilation. Pancreas: Unremarkable. No ductal dilation. Spleen: Unremarkable. No splenomegaly. Adrenals: Unremarkable. No mass. Kidneys and ureters: Nonobstructing stone in the LEFT renal pelvis measures 7 mm. Obstructing stone in the LEFT proximal ureter measures 6 mm. Mild hydronephrosis of the LEFT kidney impression. Stomach and bowel: Moderate fecal retention, correlate for constipation. No bowel obstruction. No free air. No mucosal thickening. PELVIS: Appendix: No findings to suggest acute appendicitis. Bladder: Severe wall thickening of the urinary bladder which measures up to 1.8 cm in thickness. Indwelling Davis catheter. Correlate for UTI. No stones. Reproductive: Unremarkable as visualized. ABDOMEN and PELVIS: Intraperitoneal space: See above. Bones/joints: No acute fracture. No dislocation. Soft tissues: Unremarkable. Vasculature: Vascular calcifications. Vascular calcifications are present. No abdominal aortic aneurysm. Lymph nodes: Unremarkable. No enlarged lymph nodes. Tubes, lines and devices: Feeding tube terminates in the stomach. IMPRESSION: 1. Severe wall thickening of the urinary bladder which measures up to 1. 8 cm in thickness. Indwelling Davis catheter. Correlate for UTI. 2. Feeding tube terminates in the stomach. 3. Cholecystectomy. 4. Moderate fecal retention, correlate for constipation. No bowel obstruction. No free air. Electronically signed by: Ayad Mari MD 08/23/23 19:[address] 08/23/23 19:09 Exam(s): CT CHEST Without Contrast EXAM: CT Chest Without Intravenous Contrast CLINICAL HISTORY: Reason for exam: AMS. TECHNIQUE: Axial computed tomography images of the chest without intravenous contrast. CTDI is 36.96 mGy and DLP is 1174.99 mGy-cm. Automated exposure control was utilized for the study. A dose lowering technique was utilized adhering to the principles of ALARA. COMPARISON: No relevant prior studies available. FINDINGS: Lungs: Airspace consolidations at the lung bases, consistent with multilobar pneumonia. No mass. Pleural space: Unremarkable. No pneumothorax. No significant effusion. Heart: Unremarkable. No cardiomegaly. No significant pericardial effusion. No significant coronary artery calcifications. Bones/joints: Sternotomy wires. No acute fracture. No dislocation. Soft tissues: Unremarkable. Vasculature: Unremarkable. No thoracic aortic aneurysm. Lymph nodes: Unremarkable. No enlarged lymph nodes. Gallbladder and bile ducts: Cholecystectomy. Tubes, lines and devices: Endotracheal tube terminates in the trachea. Feeding tube terminate in the stomach. IMPRESSION: 1. Airspace consolidations at the lung bases, consistent with multilobar pneumonia. 2. Endotracheal tube terminates in the trachea. 3. Feeding tube terminate in the stomach. Electronically signed by: Ayad Mari MD 08/23/23 19:56 PM Discharge Plan Visit Data Chief Complaint: Unresponsive Stated Complaint: UNRESPONSIVE ED Provider: Fermin Webb Discharge Problem: Cardiac arrest, Respiratory failure, Septic shock Patient Disposition: Admitted As Inpatient Discharge Instructions Interventions: ED Discharge Assessment Last Done: 08/23/23 22:17 Discharge Problem: Respiratory failure Qualifiers: Chronicity: acute Respiratory failure complication: unspecified whether with hypoxia or hypercapnia Qualified Code(s): J96.00 - Acute respiratory failure, unspecified whether with hypoxia or hypercapnia
[2023-08-23] MEDS ORDERED: VANCOMYCIN CONSULT ACTIVE PRN (19:53)
[2023-08-23] MEDS: cefTRIAXone SODIUM 2,000 MG/50 ML BAG IV STA (19:53)
[2023-08-23 19:56] LABS: Albumin Level 2.1 gm/dl (3.4-5.0); BUN Creatinine Ratio 19.3 (10-20); Bilirubin Direct 0.6 mg/dl (0-0.2); Bilirubin,Total 1.1 mg/dl (0.2-1.0); Calcium 8.7 mg/dl (8.6-10.3); Creatinine Clr Calc Pharmacy 32.7 ml/min; Est GFR (African American) 28.8 ml/min; Est GFR (Non-African American) 24.9 ml/min; Magnesium 1.9 mg/dl (1.7-2.4); Troponin I High Sensitivity 29.1 pg/ml (0-20)
--- NOTE | 2023-08-23 19:56 | CT Scan Report ---
Exam(s): CT HEAD Without Contrast EXAM: CT Head Without Intravenous Contrast CLINICAL HISTORY: Reason for exam: AMS. TECHNIQUE: Axial computed tomography images of the head/brain without intravenous contrast. CTDI is 37.12 mGy and DLP is 624.41 mGy-cm. Automated exposure control was utilized for the study. A dose lowering technique was utilized adhering to the principles of ALARA. COMPARISON: No relevant prior studies available. FINDINGS: No acute intracranial hemorrhage. No midline shift or mass effect. The territorial mota-white matter differentiation is maintained throughout. Age-related cerebral volume loss. Periventricular and subcortical white matter hypoattenuation, consistent with chronic microangiopathy. The visualized orbits appear grossly unremarkable. The calvarium is intact. The visualized paranasal sinuses and mastoid air cells are grossly clear. IMPRESSION: No acute intracranial hemorrhage, midline shift, or mass effect. Electronically signed by: Ayad Mari MD 08/23/23 19:55 PM
--- NOTE | 2023-08-23 19:57 | CT Scan Report ---
Exam(s): CT CHEST Without Contrast EXAM: CT Chest Without Intravenous Contrast CLINICAL HISTORY: Reason for exam: AMS. TECHNIQUE: Axial computed tomography images of the chest without intravenous contrast. CTDI is 36.96 mGy and DLP is 1174.99 mGy-cm. Automated exposure control was utilized for the study. A dose lowering technique was utilized adhering to the principles of ALARA. COMPARISON: No relevant prior studies available. FINDINGS: Lungs: Airspace consolidations at the lung bases, consistent with multilobar pneumonia. No mass. Pleural space: Unremarkable. No pneumothorax. No significant effusion. Heart: Unremarkable. No cardiomegaly. No significant pericardial effusion. No significant coronary artery calcifications. Bones/joints: Sternotomy wires. No acute fracture. No dislocation. Soft tissues: Unremarkable. Vasculature: Unremarkable. No thoracic aortic aneurysm. Lymph nodes: Unremarkable. No enlarged lymph nodes. Gallbladder and bile ducts: Cholecystectomy. Tubes, lines and devices: Endotracheal tube terminates in the trachea. Feeding tube terminate in the stomach. IMPRESSION: 1. Airspace consolidations at the lung bases, consistent with multilobar pneumonia. 2. Endotracheal tube terminates in the trachea. 3. Feeding tube terminate in the stomach. Electronically signed by: Ayad Mari MD 08/23/23 19:56 PM
--- NOTE | 2023-08-23 19:57 | Procedure Note ---
Procedure Note Date of Service August 23, 2023 Note Procedure: RIGHT FEMORAL EMERGENT Central Line Placement Proceduralist: Josemanuel THOMPSON ([facility]) Attending: Dr. Pettit Indication: cardiac arrest in progress, Central Drug Administration, Poor Venous Access, Multiple Lab Draws Necessary, etc. Anesthesia: [x]None/ Emergent Consent was implied as pateint was with CPR in progress undergoing full ACLS care including intubation. Responded to CODE BLUE in EMD: This line was placed emergently underl CLEAN TECHNIQUE. Patients RIGHT GROIN was cleansed n the typical fashion using Chloraprep. The RIGHT FEMORAL VENIN and FEMORAL Artery were identified using ultrasound, under direct visualization with the ultrasound. the FEMORAL vein was cannulated using an introducer needle on a syringe. Good venous blood return was maintained prior to removal of syringe from introducer needle. Using Seldinger Technique, a guide wire was advanced through the introducer needle without resistance. The introducer needle was removed and ultrasound images were obtained of the guide wire within the FEMORAL Vein, A small incision was made in penetrating fashion at the guide wire insertion site utilizing an 11 blade scalpel. The dilator was advanced to the vessel without resistance. The dilator was exchanged for the triple lumen catheter which was advanced into the vessel without resistance. The guide wire was removed intact from the catheter without issue. Claves were placed on each catheter tip with confirmation of good blood flow from each lumen. Each port was easily flushed with sterile saline. The catheter was placed at 20 cm and sutured in place. BioPatch was applied to the catheter and a sterile Tegaderm dressing was applied over the catheter Patient tolerated procedure well. No immediate complications were met. Images obtained are were NOT saved for permanent record as this was emergent Artery AND Vein visualized: YES Compressible Vein: YES Guidewire or Short Catheter seen in vein prior to dilation: YES Coding CPT Codes Tubes, Drains, and Vasc Access - Tubes, Drains, and Vasc Access: [id number] Insertion Of Non-tunneled Catheter Age 4 Yrs> ([id number]) [facility] [place]arges[place] Tubes, Drains, and Vasc Access Procedure 1: Tubes, Drains, and Vasc Access: [id number] Insertion Of Non-tunneled Catheter Age 4 Yrs>
[2023-08-23 19:58] LABS: Basophilic Stippling Occasional; Basophils # (auto) 0.07 K/uL (0.00-0.20); Basophils % (auto) 0.4 %; Eosinophils # (auto) 0.06 K/uL (0.00-0.50); Eosinophils % (auto) 0.3 %; Immature Granulocytes # (auto) 0.39 K/uL (0.01-0.20); Lymphocytes # (auto) 1.45 K/uL (1.20-3.40); Lymphocytes % (auto) 7.4 %; Monocytes # (auto) 0.85 K/uL (0.11-0.59); Monocytes % (auto) 4.3 %; Neutrophils # (auto) 16.81 K/uL (1.40-6.50); Neutrophils % (auto) 85.6 %
--- NOTE | 2023-08-23 19:59 | CT Scan Report ---
Exam(s): CT ABDOMEN + PELVIS Without Contrast EXAM: CT Abdomen and Pelvis Without Intravenous Contrast CLINICAL HISTORY: Reason for exam: AMS. TECHNIQUE: Axial computed tomography images of the abdomen and pelvis without intravenous contrast. CTDI [place] 32.8 [place] [address].529 mGy-cm. Automated exposure control was utilized for the study. A dose lowering technique was utilized adhering to the principles of ALARA. COMPARISON: No relevant prior studies available. FINDINGS: Lung bases: Unremarkable. No mass. No consolidation. ABDOMEN: Liver: Unremarkable. Gallbladder and bile ducts: Cholecystectomy. No ductal dilation. Pancreas: Unremarkable. No ductal dilation. Spleen: Unremarkable. No splenomegaly. Adrenals: Unremarkable. No mass. Kidneys and ureters: Nonobstructing stone in the LEFT renal pelvis measures 7 mm. Obstructing stone in the LEFT proximal ureter measures 6 mm. Mild hydronephrosis of the LEFT kidney impression. Stomach and bowel: Moderate fecal retention, correlate for constipation. No bowel obstruction. No free air. No mucosal thickening. PELVIS: Appendix: No findings to suggest acute appendicitis. Bladder: Severe wall thickening of the urinary bladder which measures up to 1.8 cm in thickness. Indwelling Davis catheter. Correlate for UTI. No stones. Reproductive: Unremarkable as visualized. ABDOMEN and PELVIS: Intraperitoneal space: See above. Bones/joints: No acute fracture. No dislocation. Soft tissues: Unremarkable. Vasculature: Vascular calcifications. Vascular calcifications are present. No abdominal aortic aneurysm. Lymph nodes: Unremarkable. No enlarged lymph nodes. Tubes, lines and devices: Feeding tube terminates in the stomach. IMPRESSION: 1. Severe wall thickening of the urinary bladder which measures up to 1. 8 cm in thickness. Indwelling Davis catheter. Correlate for UTI. 2. Feeding tube terminates in the stomach. 3. Cholecystectomy. 4. Moderate fecal retention, correlate for constipation. No bowel obstruction. No free air. Electronically signed by: Ayad Mari MD 08/23/23 19:58 PM
[2023-08-23] MEDS: ACETAMINOPHEN 1,000 MG/100 ML VIAL IV STA ×2 (20:01→22:59)
[2023-08-23] MEDS: SODIUM CHLORIDE 0.9% 1,000 ML IV SCH ×2 (20:02→23:43)
[2023-08-23] MEDS: PLASMA-LYTE A 1,000 ML IV ONE (20:20)
[2023-08-23] MEDS: STAT IV Infusion **Titration per Protocol STA ×3 (20:32)
[2023-08-23] MEDS: VANCOMYCIN HCL 1,500 MG in SODIUM CHLORIDE 0.9% 500 ML IV ONE (20:32)
--- NOTE | 2023-08-23 20:32 | Critical Care Consultation ---
Date of Consultation August 23, 2023 Assessment & Plan (1) Septic shock: (2) Respiratory failure: (3) Cardiac arrest: (4) Uncontrolled diabetes mellitus with hyperglycemia: (5) History of stroke: (6) Chronic anticoagulation: (7) Sepsis with acute organ dysfunction and septic shock: Plan Reason Critically Ill: Out of hospital cardiac arrest- PEA on arrival likely secondary to respiratory arrest secondary to metabolic encephalopathy and septic shock Neuro - Post Cardiac arrest with ROSC concern for anoxic brain injury, sedation for mechanical ventilation, HX of cva with residual left side paralysis/weakness CAM ICU: COLT - ROSC obtained- EMD time until ROSC ~ 5-7 minutes - He is currently without sedation and no spontaneous movements or withdraw, he is overbreathing the ventilator, is with cough and gag, does blink and mouth at the tube, pupils are brisk and reactive - Keep Temperature normothermic with goal <37.5- antipyretics, surface cooling if needed - At this time it is too early for neurologic prognostication - follow neurologi suraj examinations, sedation if needed with propofol/fentanyl or both - EEG in morning - Consider MRI in next 24-48 hours if no change - IF seizure activity occurs- Propofol and +/- Keppra if needed. Cardiac - PEA out of hospital cardiac arrest with ROSC, severe septic shock, HX of valve repair on chronic warfarin - Shock - severe sepsis with multiorgan failure- elevated HsCTNI, LFTS, AMRIT, Encephalopathy, Pulmonary. - - As above, Epinephrine infusion for MAPS- epinephrine dose escalation required on arrival to ICU - vasopressin added, stress dose steroids, and levophed if required - Follow ECG and troponin- no STEMI criteria currently- likley related to shock and cpr - ECHO in morning - continue supportive care for septic shock - volume as tolerated- evaluate with POCUS once in ICU - goal MAPS >65, UO >30ml/hour - Place on Heparin infusion while in ICU - when INR 2.5-3.0 Respiratory - Hypercarbic/hypoxic respiratory arrest requiring emergent intubation and mechanical ventilation - ARDSnet overnight- goal SPO2 95% until neurological assessment able to be fully completed - follow ABG - Continue broad spectrum antibiotics GI - Elevated liver enzymes - Likely secondary to hypoperfusion/shock- INR is 3.2 however he is on daily warfarin RENAL/LYTES - AMRIT, - Supportive care at this time as above - UTI complicated - await urine cultures- no obstruction or stone noted on imaging ENDO - Uncontrolled DM - ICU hyperglycemia protocol- insulin infusion stopped on arrival to ICU - not DKA protocol as initiated HEME - No acute needs - trend HGB/HCT ID - Severe Septic shock likely secondary to UTI - pulmonary source less likely - await blood and urine cultures - continue broad spectrum antibiotics- Zyvox and Meropenem now with history of PCN reaction LINES/IV ACCESS - PIV, CVL, ETT, OGT, Arterial line Continue use of these lines DVT PROPHYLAXIS - Heparin infusion DISPO: ICU while intubated and sedated as well as requiring vasopressor support. Family discussion- Discussed serious condition with the family as likely severe sepsis with multi organ failure. We discussed his overall condition to include concern for neurologic response. We discussed that it is too early at this time to prognosticate from a neurological prospective. However he is requiring increasing support regarding hemodynamics. We discussed survivability of another cardiac arrest as well as further risk for neurological injury. discussed with children (son and daughter) and wish to make patient a DNR at this time if he were to arrest. They also would not want him to suffer, and if it appears he is failing and not responding then may transition to palliative care at that time. Will keep them updated regularly. I have personally spent 65 minutes of critical care time in the direct management of this patient. This is a life/limb threatening event. This includes time spent evaluating patient, direct bedside care, chart review, placing order s, interpretation of diagnostic studies, discussion with consultants, patient, and family members, as well as other required patient management activities. This time is exclusive of all separately billable procedures, and teaching time and separate from and in addition to any other critical care service time. Thank you for allowing us to participate in the care of this patient. Please refer to my attending physician's documentation for any further recommendations. Supervising Physician Co-Signing Physician Notes Patient seen and examined. EMR reviewed. Discussed with critical care SUBHASH as well as bedside critical care nurse and on multidisciplinary rounds. Agree with assessment plan as noted. Please refer to my progress note from 08/24/2023 for additional details. History of Present Illness Reason for Consultation: cardiac arrest with ROSC- intubated on mechanical ventilator Requesting Physician: Leobardo Sidhu MD Attending Physician: Leobardo Christiansen MD History of Present Illness All information in this HPI and record is obtained from family discussion 57 YOM with no records in our system. Arrived tot he EMD in cardiac arrest with CPR in progress. Rhythm on arrival was determined as PEA. He was intubated on arrival. I responded to the code blue and was asked to place central access while continued resuscitation was ongoing. See separate procedure note. Following intubation and central access, he was noted with ROSC following Epinephrine x5, and Bicarb administrations x3 and calcium gluconate. He was initiated on epinephrine infusion. Family reports medical history of CVA with left sided paralysis of left arm and left leg- wheel chair bound, hx of aortic root aneurysm repair, valve repair on chronic anticoagulation of warfarin, dmII. PER EMD provider report- EMS was summons to patient house secondary to unresponsiveness. states that she left the house at around 1500 on 08/24/23 and returned at around 1700 and found him more unresponsive than previously. She was unable to wake him up and called EMS. He was noted to be with elevated glucose in the 300s per EMS, he was placed on NRB and transported. Family at bedside say he has been encephalopathic since late yesterday evening. They report him having fevers over the past few days. He did not seek medical attention. In the EMD the patient was undergoing CPR. following ROSC labs were sent and CT scan of head, chest abdomen and pelvis was obtained. Routine labs were noted with leukocytosis, hypercarbia with normal PH, Elevated renal indices (with unknown baseline), elevated glucose with GAP of 12, and elevated HCo3. Lactate post resuscitation is 4.8, and PCT is >100. He was initiated on sepsis pathway per EMD management with Vancomycin and Rocephin. He is receiving crystalloid infusion post resuscitation with currently 1L documented. Urine is pending, but was noted as purulent per EMD staff on placing of catheter. CT abdomen and pelvis note severe thickening of the bladder. CT chest interpreted as pneumonia, however is likely mostly related to post CPR and atelectatic changes, however will continue broad spectrum antibiotics to cover both pulmonary and urinary sources until culture data becomes available. CT head is unremarkable. Overall patient will be admitted to ICU post out of hospital cardiac arrest with ROSC, likely secondary to respiratory arrest secondary to metabolic encephalopathy from severe septic shock. CODE: FULL Allergies Allergy/AdvReac Type Severity Reaction Status Date / Time bee venom protein (honey bee) Allergy Unknown Verified 08/23/23 20:23 Iodinated Contrast Media Allergy Hives Verified 08/23/23 20:23 Penicillins Allergy Hives Verified 08/23/23 20:23 Home Medications Medication Instructions Recorded Confirmed Type allopurinol 100 mg tablet 100 mg PO QAM 08/23/23 08/23/23 History amlodipine 10 mg tablet 10 mg PO QAM 08/23/23 08/23/23 History aspirin 81 mg chewable tablet 81 mg PO DAILY 08/23/23 08/23/23 History (Aspirin Childrens) atorvastatin 10 mg tablet 10 mg PO HS 08/23/23 08/23/23 History carvedilol 25 mg tablet 25 mg PO BID 08/23/23 08/23/23 History clonidine HCl 0.2 mg tablet 0.2 mg PO TID 08/23/23 08/23/23 History famotidine 40 mg tablet 40 mg PO DAILYBB 08/23/23 08/23/23 History furosemide 40 mg tablet 20 mg PO Q OTHER DAY 08/23/23 08/23/23 History gabapentin 300 mg capsule 300 mg PO TID 08/23/23 08/23/23 History montelukast 10 mg tablet 10 mg PO DAILY 08/23/23 08/23/23 History pregabalin 150 mg capsule 150 mg PO BID 08/23/23 08/23/23 History tamsulosin 0.4 mg capsule 0.4 mg PO QAM 08/23/23 08/23/23 History warfarin 1 mg tablet 1 mg PO DAILY 08/23/23 08/23/23 History warfarin 5 mg tablet 5 mg PO DAILY 08/23/23 08/23/23 History Patient History Medical History (Updated 08/24/23 @ 01:44 by Leobardo Sidhu MD) GERD (gastroesophageal reflux disease) Hyperlipidemia Peripheral neuropathy Gout Hypertension BPH w urinary obs/LUTS Chronic anticoagulation History of stroke Social History Smoking Status: Never smoker Tobacco Type: Smokeless Tobacco (Dip or Chew) Second Hand Exposure: No; Do You Dip or Chew Tobacco: Yes; Tobacco Cessation Education Requested by Patient: No Hx Alcohol Use: No Hx Substance Use: No Preferred Language: Hebrew Communication Ability: Impaired Retort Cooler Required: No Beliefs That Will Affect Care: None Current Living Situation: Spouse Other Information That Helps Us Care for You: No Feels Safe at Home: Yes Safety Concerns: Feels Safe At This Time Assistive Devices: CPAP, Lift Chair, Mechanical Lift and Wheelchair Review of Systems Review of Systems: unable to assess secondary to intubation and mentation Physical Exam Physical Exam: PHYSICAL EXAM: General: intubated and sedated Head: Normocephalic, atraumatic ENT: PERRLA 2-1 sluggish,, mucous membranes dry Neuro: intubated- He is currently without sedation and no spontaneous movements or withdraw, he is overbreathing the ventilator, is with cough and gag, does blink and mouth at the tube, pupils are brisk and reactive Chest: equal rise and fall of the chest, synchronized with the vent Cardiac: Regular rate and rhythm, telemetry reviewed- NSR, skin warm dry, cap refill <3 seconds, peripheral pusles +2 no JVD, GI: NABS x 4 quadrants, soft, nontender to palpation, no rebound, guarding or tenderness : Davis to gravity draining dark urine Skin: skin abrasion left elbow and skin ulceration to sacrum Results & Data Results & Data Vital Signs (Past 12 Hours) Vital Signs Temp Pulse Resp BP Pulse Ox O2 Del Method FiO2 08/23/23 20:08 96 H 21 98 70 08/23/23 19:54 Mechanical Vent 08/23/23 19:54 97 Mechanical Vent 08/23/23 19:48 73/45 L 08/23/23 19:48 40.6 C H 94 H 20 99 08/23/23 19:41 97 Mechanical Vent 08/23/23 19:27 81/54 L 08/23/23 19:27 99 H 22 100 Mechanical Vent 08/23/23 19:25 117/101 H 08/23/23 19:25 113 H 24 99 Mechanical Vent 08/23/23 19:23 90/73 L 08/23/23 19:23 115 H 27 H 100 Mechanical Vent 08/23/23 19:21 78/40 L 08/23/23 19:21 24 100 Mechanical Vent 08/23/23 19:20 117 H 27 H 98 Mechanical Vent 08/23/23 19:19 74/48 L 08/23/23 19:19 115 H 25 H 98 Mechanical Vent 08/23/23 19:18 108 H 25 H 96 Mechanical Vent 08/23/23 19:18 84/46 L 08/23/23 19:16 109 H 27 H 100 Mechanical Vent 08/23/23 19:16 83/54 L 08/23/23 19:15 108 H 26 H 100 Mechanical Vent 08/23/23 19:15 79/56 L 08/23/23 19:13 91/66 L 08/23/23 19:13 120 H 31 H 99 Mechanical Vent 08/23/23 19:11 103 H 28 H 100 Mechanical Vent 08/23/23 19:11 94/60 L 08/23/23 19:10 74/56 L 08/23/23 19:10 119 H 36 H 100 Ambu-Bag 08/23/23 19:05 95 H 28 H 94 Ambu-Bag 08/23/23 19:04 98 H 26 H 95 Ambu-Bag 08/23/23 19:04 114/69 08/23/23 19:03 100 H 08/23/23 19:00 34 L 25 H 84 L Ambu-Bag 08/23/23 19:00 36.7 C 08/23/23 18:57 60/32 L 08/23/23 18:57 0 L 6 L 08/23/23 18:55 136 H 69 H 08/23/23 18:52 49 L 08/23/23 18:49 0 L Laboratory Results Abnormal lab results 08/23/23 08/23/23 08/23/23 Range/Units 19:04 19:08 19:10 WBC 19.63 H (4.8-10.8) K/ul RBC 4.39 L (4.70-6.10) M/uL Hgb 11.8 L (14.0-18.0) g/dl POC Hgb 12.6 L 10.9 L (14.0-18.0) g/dl Hct 35.5 L (42.0-52.0) % POC Hct 37 L 32 L (42-52) % Neut # (Auto) 16.81 H (1.40-6.50) K/uL [place] # (Auto) 0.85 H (0.11-0.59) K/uL Immature Gran # (Auto) 0.39 H (0.01-0.20) K/uL POC pCO2 62 H (35-46) mmHg POC pO2 184 H (80-95) mmHg POC HCO3 39 H (19-24) mirta/L POC Total CO2 > 40 H* (24-31) mmol/L POC Base Excess 14.0 H (-9-1.8) mirta/L POC ABG O2 Sat 100.0 H (90-95) % POC Sodium 133 L (135-144) mmol/L POC Chloride 99 L (101-112) mmol/L POC Anion Gap 12.0 L (16-25) mmol/L POC BUN 46 H (7-18) mg/dl BUN 52 H (6-23) mg/dl Creatinine 2.70 H (0.6-1.4) mg/dl POC Creatinine 3.1 H (0.6-1.3) mg/dl Glucose 326 H* (70-99(Fasting)) mg/dl POC Glucose (70-99) mg/dl POC Glucose (other) 316 H (70-99) mg/dl Lactate 4.8 H* (0.4-2.0) mmol/L Total Bilirubin 1.1 H (0.2-1.0) mg/dl Direct Bilirubin 0.6 H (0-0.2) mg/dl AST 176 H (13-39) U/L ALT 109 H (7-52) U/L Alkaline Phosphatase 201 H (34-104) U/L Troponin I High Sens 29.1 H (0-20) pg/ml Total Protein 5.0 L (6.0-8.3) gm/dl Albumin 2.1 L (3.4-5.0) gm/dl Procalcitonin > 100.00 H (0-0.5) ng/ml 08/23/23 Range/Units 20:26 WBC (4.8-10.8) K/ul RBC (4.70-6.10) M/uL Hgb (14.0-18.0) g/dl POC Hgb (14.0-18.0) g/dl Hct (42.0-52.0) % POC Hct (42-52) % Neut # (Auto) (1.40-6.50) K/uL [place] # (Auto) (0.11-0.59) K/uL Immature Gran # (Auto) (0.01-0.20) K/uL POC pCO2 (35-46) mmHg POC pO2 (80-95) mmHg POC HCO3 (19-24) mirta/L POC Total CO2 (24-31) mmol/L POC Base Excess (-9-1.8) mirta/L POC ABG O2 Sat (90-95) % POC Sodium (135-144) mmol/L POC Chloride (101-112) mmol/L POC Anion Gap (16-25) mmol/L POC BUN (7-18) mg/dl BUN (6-23) mg/dl Creatinine (0.6-1.4) mg/dl POC Creatinine (0.6-1.3) mg/dl Glucose (70-99(Fasting)) mg/dl POC Glucose 309 H* (70-99) mg/dl POC Glucose (other) (70-99) mg/dl Lactate (0.4-2.0) mmol/L Total Bilirubin (0.2-1.0) mg/dl Direct Bilirubin (0-0.2) mg/dl AST (13-39) U/L ALT (7-52) U/L Alkaline Phosphatase (34-104) U/L Troponin I High Sens (0-20) pg/ml Total Protein (6.0-8.3) gm/dl Albumin (3.4-5.0) gm/dl Procalcitonin (0-0.5) ng/ml Diagnostic Findings Head CT 08/23/23 19:07 Exam(s): CT HEAD Without Contrast EXAM: CT Head Without Intravenous Contrast CLINICAL HISTORY: Reason for exam: AMS. TECHNIQUE: Axial computed tomography images of the head/brain without intravenous contrast. CTDI is 37.12 mGy and DLP is 624.41 mGy-cm. Automated exposure control was utilized for the study. A dose lowering technique was utilized adhering to the principles of ALARA. COMPARISON: No relevant prior studies available. FINDINGS: No acute intracranial hemorrhage. No midline shift or mass effect. The territorial mota-white matter differentiation is maintained throughout. Age-related cerebral volume loss. Periventricular and subcortical white matter hypoattenuation, consistent with chronic microangiopathy. The visualized orbits appear grossly unremarkable. The calvarium is intact. The visualized paranasal sinuses and mastoid air cells are grossly clear. IMPRESSION: No acute intracranial hemorrhage, midline shift, or mass effect. Electronically signed by: Ayad Mari MD 08/23/23 19:55 PM Abdomen/Pelvis CT 08/23/23 19:09 Exam(s): CT ABDOMEN + PELVIS Without Contrast EXAM: CT Abdomen and Pelvis Without Intravenous Contrast CLINICAL HISTORY: Reason for exam: AMS. TECHNIQUE: Axial computed tomography images of the abdomen and pelvis without intravenous contrast. CTDI [place] 32.8 [place] [address].529 mGy-cm. Automated exposure control was utilized for the study. A dose lowering technique was utilized adhering to the principles of ALARA. COMPARISON: No relevant prior studies available. FINDINGS: Lung bases: Unremarkable. No mass. No consolidation. ABDOMEN: Liver: Unremarkable. Gallbladder and bile ducts: Cholecystectomy. No ductal dilation. Pancreas: Unremarkable. No ductal dilation. Spleen: Unremarkable. No splenomegaly. Adrenals: Unremarkable. No mass. Kidneys and ureters: Nonobstructing stone in the LEFT renal pelvis measures 7 mm. Obstructing stone in the LEFT proximal ureter measures 6 mm. Mild hydronephrosis of the LEFT kidney impression. Stomach and bowel: Moderate fecal retention, correlate for constipation. No bowel obstruction. No free air. No mucosal thickening. PELVIS: Appendix: No findings to suggest acute appendicitis. Bladder: Severe wall thickening of the urinary bladder which measures up to 1.8 cm in thickness. Indwelling Davis catheter. Correlate for UTI. No stones. Reproductive: Unremarkable as visualized. ABDOMEN and PELVIS: Intraperitoneal space: See above. Bones/joints: No acute fracture. No dislocation. Soft tissues: Unremarkable. Vasculature: Vascular calcifications. Vascular calcifications are present. No abdominal aortic aneurysm. Lymph nodes: Unremarkable. No enlarged lymph nodes. Tubes, lines and devices: Feeding tube terminates in the stomach. IMPRESSION: 1. Severe wall thickening of the urinary bladder which measures up to 1. 8 cm in thickness. Indwelling Davis catheter. Correlate for UTI. 2. Feeding tube terminates in the stomach. 3. Cholecystectomy. 4. Moderate fecal retention, correlate for constipation. No bowel obstruction. No free air. Electronically signed by: Ayad Mari MD 08/23/23 19:[address] 08/23/23 19:09 Exam(s): CT CHEST Without Contrast EXAM: CT Chest Without Intravenous Contrast CLINICAL HISTORY: Reason for exam: AMS. TECHNIQUE: Axial computed tomography images of the chest without intravenous contrast. CTDI is 36.96 mGy and DLP is 1174.99 mGy-cm. Automated exposure control was utilized for the study. A dose lowering technique was utilized adhering to the principles of ALARA. COMPARISON: No relevant prior studies available. FINDINGS: Lungs: Airspace consolidations at the lung bases, consistent with multilobar pneumonia. No mass. Pleural space: Unremarkable. No pneumothorax. No significant effusion. Heart: Unremarkable. No cardiomegaly. No significant pericardial effusion. No significant coronary artery calcifications. Bones/joints: Sternotomy wires. No acute fracture. No dislocation. Soft tissues: Unremarkable. Vasculature: Unremarkable. No thoracic aortic aneurysm. Lymph nodes: Unremarkable. No enlarged lymph nodes. Gallbladder and bile ducts: Cholecystectomy. Tubes, lines and devices: Endotracheal tube terminates in the trachea. Feeding tube terminate in the stomach. IMPRESSION: 1. Airspace consolidations at the lung bases, consistent with multilobar pneumonia. 2. Endotracheal tube terminates in the trachea. 3. Feeding tube terminate in the stomach. Electronically signed by: Ayad Mari MD 08/23/23 19:56 PM Medications Administered Epinephrine HCl () 4 mg in 254 mls @ 6.096 mls/hr IV .Q24H ZENA; Protocol Stop: 09/22/23 19:59 Last Titration: 08/23/23 19:59 Dose: 0.4 mcg/kg/min, 121.9 mls/hr Documented By: Titration: 08/23/23 19:45 Dose: 0.2 mcg/kg/min, 61 mls/hr Documented By: Titration: 08/23/23 19:19 Dose: 0.15 mcg/kg/min, 45.7 mls/hr Documented By: Admin: 08/23/23 19:14 Dose: 0.1 mcg/kg/min, 30.5 mls/hr Documented By: HEBERT Co-signed By: NIK Sodium Chloride (Nss) 1,000 mls @ 999 mls/hr IV .Q1H1M ZENA Stop: 08/23/23 22:00 Last Admin: 08/23/23 20:02 Dose: 999 mls/hr Documented By: HEBERT Parenteral Electrolytes (Plasma-Lyte A Ph 7.4) 1,000 mls @ 999 mls/hr IV .Q1H1M ONE Stop: 08/23/23 21:04 Last Admin: 08/23/23 20:20 Dose: 999 mls/hr Documented By: NIK Insulin Human Regular 250 (units/ Sodium Chloride) 250 mls @ 8 mls/hr IV .Q24H ZENA; Protocol Stop: 09/22/23 20:14 Last Admin: 08/23/23 20:33 Dose: 8 units/hr, 8 mls/hr Documented By: HEBERT Co-signed By: NIK Discontinued Medications Ceftriaxone Sodium (Rocephin) 2,000 mg in 50 mls @ 100 mls/hr IV NOW STA Stop: 08/23/23 19:36 Last Infusion: 08/23/23 20:34 Dose: Infused Documented By: Admin: 08/23/23 19:53 Dose: 100 mls/hr Documented By: HEBERT Vancomycin HCl 1,500 mg/ (Sodium Chloride) 530 mls @ 200 mls/hr IV NOW ONE Stop: 08/23/23 22:31 Last Infusion: 08/23/23 20:43 Dose: Infused Documented By: Admin: 08/23/23 20:32 Dose: 200 mls/hr Documented By: HEBERT Acetaminophen (Ofirmev) 1,000 mg in 100 mls @ 400 mls/hr IV NOW STA Stop: 08/23/23 20:09 Last Infusion: 08/23/23 20:20 Dose: Infused Documented By: Admin: 08/23/23 20:01 Dose: 400 mls/hr Documented By: HEBERT Wong (Stat Iv Infusion Titration Per Protocol) 1 each N/A NOW STA Stop: 08/23/23 19:07 Last Admin: 08/23/23 20:32 Dose: Not Given Documented By: HEBERT Wong (Stat Iv Infusion Titration Per Protocol) 1 each N/A NOW STA Stop: 08/23/23 19:54 Last Admin: 08/23/23 20:32 Dose: Not Given Documented By: HEBERT Wong (Stat Iv Infusion Titration Per Protocol) 1 each N/A NOW STA Stop: 08/23/23 20:05 Last Admin: 08/23/23 20:32 Dose: Not Given Documented By: HEBERT ECG Additional Comments: Wide QRS rhythm with occasional Premature ventricular complexes Left axis deviation Right bundle branch block Possible Lateral infarct , age undetermined Inferior infarct , age undetermined Abnormal ECG No previous ECGs available Sinus rhythm with 1st degree A-V block with occasional Premature ventricular complexes Left axis deviation Right bundle branch block Inferior infarct , age undetermined Anterolateral infarct , age undetermined Abnormal ECG No previous ECGs available Coding Level of Care Code 98513 CRITICAL CARE 1ST 30-74M Diagnoses Septic shock A41.9; R65.21 Respiratory failure J96.00 Chronicity: acute Respiratory failure complication: unspecified whether with hypoxia or hypercapnia Cardiac arrest I46.9 Uncontrolled diabetes mellitus with hyperglycemia E11.65 History of stroke Z86.73 Chronic anticoagulation Z79.01 Sepsis with acute organ dysfunction and septic shock A41.9; R65.21 (2) Respiratory failure Chronicity: acute Respiratory failure complication: unspecified whether with hypoxia or hypercapnia Qualified Code(s): J96.00 - Acute respiratory failure, unspecified whether with hypoxia or hypercapnia
[2023-08-23] MEDS: INSULIN REGULAR 250 UNITS in SODIUM CHLORIDE 0.9% 247.5 ML IV SCH ×2 (20:33→23:30)
--- NOTE | 2023-08-23 20:52 | History & Physical Report ---
Date of Service August 23, 2023 Assessment & Plan (1) Cardiac arrest: (2) Sepsis with acute organ dysfunction and septic shock: (3) Respiratory failure: (4) Aspiration pneumonia of both lower lobes: (5) Admitted to intensive care unit: (6) Chronic anticoagulation: (7) Uncontrolled diabetes mellitus with hyperglycemia: (8) BPH w urinary obs/LUTS: (9) History of stroke: (10) Hypertension: (11) Gout: (12) Peripheral neuropathy: (13) Hyperlipidemia: (14) GERD (gastroesophageal reflux disease): Plan Cardiac arrest/cardiogenic shock/history of hypertension- Intubated, ICU ventilator management The patient will be admitted to the ICU for serial cardiac enzymes, serial EK G's, cardiac rhythm monitoring and a 2-D echocardiogram with Dopplers. Continue epinephrine drip, and adjustment per ICU On chronic anticoagulation with warfarin, changing to heparin drip per protocol Aspiration pneumonia of both lower lobes/septic shock- Linezolid 600 mg IV every 12 hours Meropenem 500 mg IV every 6 hours. History of hives with penicillins Duonebs every 4 hours while awake and every 2 hours when necessary. Renal insufficiency- Creatinine 2.70 with unknown baseline IV fluids and blood pressure resuscitation Follow serial laboratories Diabetes mellitus uncontrolled- Glucose 326 on admission Continue DKA and insulin drip protocol begun in the ED BPH with LUTS- Continue Davis catheter Follow urine culture and sensitivity History of Present Illness Chief Complaint: The patient was found, unresponsive, [id number] cardiac arrest, PEA noted by EMS, metabolic encephalopathy, septic shock, and ROSC obtained after about 5 to 7 minutes. Primary Care Provider: NO PCP The patient with a past medical history including uncontrolled diabetes mellitus, gout, hypertension, hyperlipidemia, GERD, peripheral neuropathy, BPH and chronic anticoagulation. He presented to the emergency department after [id number] cardiac arrest with ROSC obtained after about 5 to 7 minutes. Patient was intubated, and underwent workup in the emergency department including CT scan of head which was negative, CT scan of chest showed multifocal pneumonia at the bilateral bases,'s and CT scan abdomen and pelvis showed bladder wall thickening with Davis present. Temperature was noted to be 40.7 maximum, and patient was maintained on epinephrine drip for pressure support postcardiac arrest. Patient admitted to the intensive care unit for ongoing care Allergies Allergy/AdvReac Type Severity Reaction Status Date / Time bee venom protein (honey bee) Allergy Unknown Verified 08/23/23 20:23 Iodinated Contrast Media Allergy Hives Verified 08/23/23 20:23 Penicillins Allergy Hives Verified 08/23/23 20:23 Home Medications Medication Instructions Recorded Confirmed Type allopurinol 100 mg tablet 100 mg PO QAM 08/23/23 08/23/23 History amlodipine 10 mg tablet 10 mg PO QAM 08/23/23 08/23/23 History aspirin 81 mg chewable tablet 81 mg PO DAILY 08/23/23 08/23/23 History (Aspirin Childrens) atorvastatin 10 mg tablet 10 mg PO HS 08/23/23 08/23/23 History carvedilol 25 mg tablet 25 mg PO BID 08/23/23 08/23/23 History clonidine HCl 0.2 mg tablet 0.2 mg PO TID 08/23/23 08/23/23 History famotidine 40 mg tablet 40 mg PO DAILYBB 08/23/23 08/23/23 History furosemide 40 mg tablet 20 mg PO Q OTHER DAY 08/23/23 08/23/23 History gabapentin 300 mg capsule 300 mg PO TID 08/23/23 08/23/23 History montelukast 10 mg tablet 10 mg PO DAILY 08/23/23 08/23/23 History pregabalin 150 mg capsule 150 mg PO BID 08/23/23 08/23/23 History tamsulosin 0.4 mg capsule 0.4 mg PO QAM 08/23/23 08/23/23 History warfarin 1 mg tablet 1 mg PO DAILY 08/23/23 08/23/23 History warfarin 5 mg tablet 5 mg PO DAILY 08/23/23 08/23/23 History Past Med/Surg History Medical History (Updated 08/24/23 @ 01:44 by Leobardo Sidhu MD) GERD (gastroesophageal reflux disease) Hyperlipidemia Peripheral neuropathy Gout Hypertension BPH w urinary obs/LUTS Chronic anticoagulation History of stroke Social History Smoking Status: Never smoker Tobacco Type: Smokeless Tobacco (Dip or Chew) Second Hand Exposure: No; Do You Dip or Chew Tobacco: Yes; Hx Alcohol Use: No Hx Substance Use: No Preferred Language: Australian Communication Ability: Impaired 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 Neck--supple. No JVD. No bruits. Thyroid normal, trachea midline, no adenopathy. Heart--normal S1 and S2. No murmurs, rubs or gallops. Lungs--coarse breath sounds bilaterally, decreased breath sounds at the bases Abdomen--normal bowel sounds and soft. Nondistended Extremities--No edema. Dermatologic--normal skin turgor, no rash. Neurologic--limited exam Rheumatologic-Limited exam Psychiatric--unresponsive. Results & Data Results & Data Vital Signs (Past 12 Hours) Vital Signs Temp Pulse Resp BP Pulse Ox O2 Del Method FiO2 08/23/23 20:43 105/62 08/23/23 20:43 40.3 C H 85 19 98 08/23/23 20:42 100/62 08/23/23 20:42 40.3 C H 85 24 98 08/23/23 20:41 103/64 08/23/23 20:41 40.4 C H 85 19 98 08/23/23 20:40 107/63 08/23/23 20:40 40.4 C H 90 27 H 99 08/23/23 20:39 89/61 L 08/23/23 20:39 40.4 C H 87 19 98 08/23/23 20:38 96/61 L 08/23/23 20:38 40.4 C H 83 18 98 08/23/23 20:37 116/62 08/23/23 20:37 40.4 C H 84 19 98 08/23/23 20:36 99/63 L 08/23/23 20:36 40.5 C H 91 H 20 98 08/23/23 20:35 99/61 L 08/23/23 20:35 40.5 C H 85 19 98 08/23/23 20:34 40.5 C H 81 20 98 08/23/23 20:34 100/57 L 08/23/23 20:33 106/54 L 08/23/23 20:33 40.5 C H 80 20 98 08/23/23 20:32 98/58 L 08/23/23 20:32 40.5 C H 87 18 98 08/23/23 20:31 40.5 C H 81 19 98 08/23/23 20:31 97/57 L 08/23/23 20:30 99/58 L 08/23/23 20:30 40.5 C H 84 19 98 08/23/23 20:29 101/56 L 08/23/23 20:29 40.6 C H 83 18 98 08/23/23 20:28 89/67 L 08/23/23 20:28 40.6 C H 81 18 98 08/23/23 20:27 102/57 L 08/23/23 20:27 40.6 C H 80 19 98 08/23/23 20:26 105/59 L 08/23/23 20:26 40.6 C H 82 18 99 08/23/23 20:25 106/56 L 08/23/23 20:25 40.6 C H 82 19 98 08/23/23 20:23 40.6 C H 81 18 98 08/23/23 20:23 81/54 L 08/23/23 20:22 99/60 L 08/23/23 20:22 40.6 C H 89 18 98 08/23/23 20:20 77/53 L 08/23/23 20:20 40.7 C H 80 19 98 08/23/23 20:19 93/60 L 08/23/23 20:19 40.7 C H 82 20 98 08/23/23 20:18 99/56 L 08/23/23 20:18 40.7 C H 82 20 98 08/23/23 20:17 89/62 L 08/23/23 20:17 40.7 C H 83 18 99 08/23/23 20:16 40.7 C H 92 H 19 99 08/23/23 20:16 88/51 L 08/23/23 20:15 93/54 L 08/23/23 20:15 40.7 C H 83 20 99 08/23/23 20:14 91/58 L 08/23/23 20:14 40.7 C H 84 19 99 08/23/23 20:13 94/54 L 08/23/23 20:13 40.7 C H 82 20 99 08/23/23 20:12 40.7 C H 83 20 100 04/17/24 20:12 92/52 L 08/23/23 20:10 79/48 L 08/23/23 20:10 40.7 C H 92 H 19 100 08/23/23 20:09 91/57 L 08/23/23 20:09 40.7 C H 85 20 100 08/23/23 20:08 40.7 C H 86 18 100 08/23/23 20:08 88/54 L 08/23/23 20:08 96 H 21 98 70 08/23/23 20:07 90/55 L 08/23/23 20:07 40.7 C H 87 21 100 08/23/23 20:06 94/52 L 08/23/23 20:06 40.7 C H 90 21 100 08/23/23 20:05 90/51 L 08/23/23 20:05 40.7 C H 92 H 21 100 08/23/23 20:04 88/54 L 08/23/23 20:04 40.7 C H 92 H 21 100 08/23/23 20:03 90/53 L 08/23/23 20:03 40.7 C H 92 H 20 100 08/23/23 20:02 40.7 C H 94 H 21 100 08/23/23 20:02 88/65 L 08/23/23 20:01 84/54 L 08/23/23 20:01 40.7 C H 93 H 22 100 08/23/23 20:00 40.7 C H 92 H 21 100 08/23/23 19:59 40.7 C H 90 21 100 08/23/23 19:59 67/46 L 08/23/23 19:59 75/41 L 08/23/23 19:57 40.6 C H 94 H 20 100 08/23/23 19:57 76/37 L 08/23/23 19:56 93/41 L 08/23/23 19:56 40.7 C H 93 H 24 94 08/23/23 19:55 40.6 C H 92 H 21 99 08/23/23 19:54 94/53 L 08/23/23 19:54 40.6 C H 92 H 20 08/23/23 19:54 Mechanical Vent 08/23/23 19:54 97 Mechanical Vent 08/23/23 19:53 91/53 L 08/23/23 19:53 40.6 C H 94 H 22 94 08/23/23 19:48 73/45 L 08/23/23 19:48 40.6 C H 94 H 20 99 08/23/23 19:41 97 Mechanical Vent 08/23/23 19:27 81/54 L 08/23/23 19:27 99 H 22 100 Mechanical Vent 08/23/23 19:25 117/101 H 08/23/23 19:25 113 H 24 99 Mechanical Vent 08/23/23 19:23 90/73 L 08/23/23 19:23 115 H 27 H 100 Mechanical Vent 08/23/23 19:21 78/40 L 08/23/23 19:21 24 100 Mechanical Vent 08/23/23 19:20 117 H 27 H 98 Mechanical Vent 08/23/23 19:19 74/48 L 08/23/23 19:19 115 H 25 H 98 Mechanical Vent 08/23/23 19:18 108 H 25 H 96 Mechanical Vent 08/23/23 19:18 84/46 L 08/23/23 19:16 109 H 27 H 100 Mechanical Vent 08/23/23 19:16 83/54 L 08/23/23 19:15 108 H 26 H 100 Mechanical Vent 08/23/23 19:15 79/56 L 08/23/23 19:13 91/66 L 08/23/23 19:13 120 H 31 H 99 Mechanical Vent 08/23/23 19:11 103 H 28 H 100 Mechanical Vent 08/23/23 19:11 94/60 L 08/23/23 19:10 74/56 L 08/23/23 19:10 119 H 36 H 100 Ambu-Bag 08/23/23 19:05 95 H 28 H 94 Ambu-Bag 08/23/23 19:04 98 H 26 H 95 Ambu-Bag 08/23/23 19:04 114/69 08/23/23 19:03 100 H 08/23/23 19:00 34 L 25 H 84 L Ambu-Bag 08/23/23 19:00 38.0 C H 08/23/23 18:57 60/32 L 08/23/23 18:57 0 L 6 L 08/23/23 18:55 136 H 69 H 08/23/23 18:52 49 L 08/23/23 18:49 0 L Laboratory Results Laboratory Results WBC 19.63 K/ul (4.8-10.8) H 08/23/23 19:08 RBC 4.39 M/uL (4.70-6.10) L 08/23/23 19:08 Hgb 11.8 g/dl (14.0-18.0) L 08/23/23 19:08 POC Hgb 10.9 g/dl (14.0-18.0) L 08/23/23 22:48 Hct 35.5 % (42.0-52.0) L 08/23/23 19:08 POC Hct 32 % (42-52) L 08/23/23 22:48 MCV 80.9 fL (80.0-100.0) 08/23/23 19:08 MCH 26.9 pg (25.0-34.0) 08/23/23 19:08 MCHC 33.2 g/dL (32.0-36.0) 08/23/23 19:08 RDW Std Deviation 40.7 fL (36.4-46.3) 08/23/23 19:08 RDW Coeff of Malika 13.9 % (11.5-14.5) 08/23/23 19:08 Plt Count 154 K/uL (130-400) 08/23/23 19:08 MPV 11.0 fL (9.4-12.4) 08/23/23 19:08 Immature Gran % (Auto) 2.0 % 08/23/23 19:08 Neut % (Auto) 85.6 % 08/23/23 19:08 Lymph % (Auto) 7.4 % 08/23/23 19:08 [place] % (Auto) 4.3 % 08/23/23 19:08 Eos % (Auto) 0.3 % 08/23/23 19:08 Baso % (Auto) 0.4 % 08/23/23 19:08 Neut # (Auto) 16.81 K/uL (1.40-6.50) H 08/23/23 19:08 Lymph # (Auto) 1.45 K/uL (1.20-3.40) 08/23/23 19:08 [place] # (Auto) 0.85 K/uL (0.11-0.59) H 08/23/23 19:08 Eos # (Auto) 0.06 K/uL (0.00-0.50) 08/23/23 19:08 Baso # (Auto) 0.07 K/uL (0.00-0.20) 08/23/23 19:08 Immature Gran # (Auto) 0.39 K/uL (0.01-0.20) H 08/23/23 19:08 Basophilic Stippling Occasional 08/23/23 19:08 PT 32.7 Seconds (9.0-12.0) H 08/23/23 21:42 INR 3.2 (0.9-1.1) H 08/23/23 21:42 APTT 45 Seconds (21-31) H 08/23/23 21:42 PTT Ratio 1.6 08/23/23 21:42 Sample Site Art Line 08/23/23 22:48 POC pH 7.42 (7.35-7.45) 08/23/23 22:48 POC pCO2 34 mmHg (35-46) L 08/23/23 22:48 POC pO2 97 mmHg (80-95) H 08/23/23 22:48 POC HCO3 22 mirta/L (19-24) 08/23/23 22:48 POC Total CO2 23 mmol/L (24-31) L 08/23/23 22:48 POC Base Excess -2.0 mirta/L (-9-1.8) 08/23/23 22:48 ABG pH (Temp Correct) 7.389 (7.35-7.45) 08/23/23 22:48 ABG pCO2 (Temp Corrct 38 mmHg (35-46) 08/23/23 22:48 POC ABG pO2 at Pt Temp 110 08/23/23 22:48 POC ABG O2 Sat 98.0 % (90-95) H 08/23/23 22:48 [place] Test NA 08/23/23 22:48 O2 Delivery Device Ventilator 08/23/23 22:48 POC O2 Rate 18 08/23/23 22:48 Minute Ventilation 9 08/23/23 22:48 POC FiO2 50 % 08/23/23 22:48 Tidal Volume 450 08/23/23 22:48 PEEP 10 08/23/23 22:48 POC Sodium 138 mmol/L (135-144) 08/23/23 22:48 Sodium 139 mmol/L (136-145) 08/23/23 19:08 POC Potassium 3.5 mmol/L (3.3-5.0) 08/23/23 22:48 Potassium 4.0 mmol/L (3.5-5.1) 08/23/23 19:08 POC Chloride 99 mmol/L (101-112) L 08/23/23 19:04 Chloride 100 mmol/L (98-107) 08/23/23 19:08 Carbon Dioxide 32 mmol/L (21-32) 08/23/23 19:08 POC Total CO2 27 mmol/L (24-31) 08/23/23 19:04 Anion Gap 7 (3-11) 08/23/23 19:08 POC Anion Gap 12.0 mmol/L (16-25) L 08/23/23 19:04 POC BUN 46 mg/dl (7-18) H 08/23/23 19:04 BUN 52 mg/dl (6-23) H 08/23/23 19:08 Creatinine 2.70 mg/dl (0.6-1.4) H 08/23/23 19:08 POC Creatinine 3.1 mg/dl (0.6-1.3) H 08/23/23 19:04 Est Cr Clr Drug Dosing 32.7 ml/min 08/23/23 19:08 Est GFR ( Amer) 28.8 ml/min 08/23/23 19:08 Est GFR (Non-Af Amer) 24.9 ml/min 08/23/23 19:08 BUN/Creatinine Ratio 19.3 (10-20) 08/23/23 19:08 Glucose 326 mg/dl (70-99(Fasting)) H* 08/23/23 19:08 POC Glucose 282 mg/dl (70-99) H 08/23/23 22:04 POC Glucose 282 mg/dl (70-99) H 08/23/23 22:04 POC Glucose (other) 324 mg/dl (70-99) H 08/24/23 00:31 Lactate 3.6 mmol/L (0.4-2.0) H* 08/23/23 21:41 Calcium 8.7 mg/dl (8.6-10.3) 08/23/23 19:08 POC Ioniz Calcium Alisha 1.23 mmol/l (1.12-1.32) 08/23/23 19:04 Magnesium 1.9 mg/dl (1.7-2.4) 08/23/23 19:08 Total Bilirubin 1.1 mg/dl (0.2-1.0) H 08/23/23 19:08 Direct Bilirubin 0.6 mg/dl (0-0.2) H 08/23/23 19:08 AST 176 U/L (13-39) H 08/23/23 19:08 ALT 109 U/L (7-52) H 08/23/23 19:08 Alkaline Phosphatase 201 U/L (34-104) H 08/23/23 19:08 Troponin I High Sens 159.2 pg/ml (0-20) H* D 08/23/23 21:41 Total Protein 5.0 gm/dl (6.0-8.3) L 08/23/23 19:08 Albumin 2.1 gm/dl (3.4-5.0) L 08/23/23 19:08 Procalcitonin > 100.00 ng/ml (0-0.5) H 08/23/23 19:08 Urine Color Dark Yellow 08/23/23 19:16 Urine Appearance Turbid (Clear) A 08/23/23 19:16 Urine pH 8.5 (4.5-7.5) H 08/23/23 19:16 Ur Specific [place] 1.016 (1.000-1.030) 08/23/23 19:16 Urine Protein 2+ (Negative) H 08/23/23 19:16 Urine Glucose (UA) 1+ (Negative) H 08/23/23 19:16 Urine Ketones Negative (Negative) 08/23/23 19:16 Urine Blood 3+ (Negative) H 08/23/23 19:16 Urine Nitrite Negative (Negative) 08/23/23 19:16 Urine Bilirubin 1+ (Negative) H 08/23/23 19:16 Urine Urobilinogen Negative (Negative) 08/23/23 19:16 Ur Leukocyte Esterase 3+ (Negative) H 08/23/23 19:16 Urine WBC (Auto) >50 /hpf (0-5) H 08/23/23 19:16 Urine RBC (Auto) >20 /hpf (0-2) H 08/23/23 19:16 U Hyaline Cast (Auto) 0-2 /lpf (0-2) 08/23/23 19:16 U Epithel Cells (Auto) 6-10 /hpf (0-2) H 08/23/23 19:16 Urine Bacteria (Auto) 4+ (None Seen) H 08/23/23 19:16 Nasal Screen MRSA (PCR) Negative (Negative) 08/23/23 22:[address] 08/23/23 19:07 Exam(s): CT HEAD Without Contrast EXAM: CT Head Without Intravenous Contrast CLINICAL HISTORY: Reason for exam: AMS. TECHNIQUE: Axial computed tomography images of the head/brain without intravenous contrast. CTDI is 37.12 mGy and DLP is 624.41 mGy-cm. Automated exposure control was utilized for the study. A dose lowering technique was utilized adhering to the principles of ALARA. COMPARISON: No relevant prior studies available. FINDINGS: No acute intracranial hemorrhage. No midline shift or mass effect. The territorial mota-white matter differentiation is maintained throughout. Age-related cerebral volume loss. Periventricular and subcortical white matter hypoattenuation, consistent with chronic microangiopathy. The visualized orbits appear grossly unremarkable. The calvarium is intact. The visualized paranasal sinuses and mastoid air cells are grossly clear. IMPRESSION: No acute intracranial hemorrhage, midline shift, or mass effect. Electronically signed by: Ayad Mari MD 08/23/23 19:55 PM Abdomen/Pelvis CT 08/23/23 19:09 Exam(s): CT ABDOMEN + PELVIS Without Contrast EXAM: CT Abdomen and Pelvis Without Intravenous Contrast CLINICAL HISTORY: Reason for exam: AMS. TECHNIQUE: Axial computed tomography images of the abdomen and pelvis without intravenous contrast. CTDI [place] 32.8 [place] [address].529 mGy-cm. Automated exposure control was utilized for the study. A dose lowering technique was utilized adhering to the principles of ALARA. COMPARISON: No relevant prior studies available. FINDINGS: Lung bases: Unremarkable. No mass. No consolidation. ABDOMEN: Liver: Unremarkable. Gallbladder and bile ducts: Cholecystectomy. No ductal dilation. Pancreas: Unremarkable. No ductal dilation. Spleen: Unremarkable. No splenomegaly. Adrenals: Unremarkable. No mass. Kidneys and ureters: Nonobstructing stone in the LEFT renal pelvis measures 7 mm. Obstructing stone in the LEFT proximal ureter measures 6 mm. Mild hydronephrosis of the LEFT kidney impression. Stomach and bowel: Moderate fecal retention, correlate for constipation. No bowel obstruction. No free air. No mucosal thickening. PELVIS: Appendix: No findings to suggest acute appendicitis. Bladder: Severe wall thickening of the urinary bladder which measures up to 1.8 cm in thickness. Indwelling Davis catheter. Correlate for UTI. No stones. Reproductive: Unremarkable as visualized. ABDOMEN and PELVIS: Intraperitoneal space: See above. Bones/joints: No acute fracture. No dislocation. Soft tissues: Unremarkable. Vasculature: Vascular calcifications. Vascular calcifications are present. No abdominal aortic aneurysm. Lymph nodes: Unremarkable. No enlarged lymph nodes. Tubes, lines and devices: Feeding tube terminates in the stomach. IMPRESSION: 1. Severe wall thickening of the urinary bladder which measures up to 1. 8 cm in thickness. Indwelling Davis catheter. Correlate for UTI. 2. Feeding tube terminates in the stomach. 3. Cholecystectomy. 4. Moderate fecal retention, correlate for constipation. No bowel obstruction. No free air. Electronically signed by: Ayad Mari MD 08/23/23 19:[address] 08/23/23 19:09 Exam(s): CT CHEST Without Contrast EXAM: CT Chest Without Intravenous Contrast CLINICAL HISTORY: Reason for exam: AMS. TECHNIQUE: Axial computed tomography images of the chest without intravenous contrast. CTDI is 36.96 mGy and DLP is 1174.99 mGy-cm. Automated exposure control was utilized for the study. A dose lowering technique was utilized adhering to the principles of ALARA. COMPARISON: No relevant prior studies available. FINDINGS: Lungs: Airspace consolidations at the lung bases, consistent with multilobar pneumonia. No mass. Pleural space: Unremarkable. No pneumothorax. No significant effusion. Heart: Unremarkable. No cardiomegaly. No significant pericardial effusion. No significant coronary artery calcifications. Bones/joints: Sternotomy wires. No acute fracture. No dislocation. Soft tissues: Unremarkable. Vasculature: Unremarkable. No thoracic aortic aneurysm. Lymph nodes: Unremarkable. No enlarged lymph nodes. Gallbladder and bile ducts: Cholecystectomy. Tubes, lines and devices: Endotracheal tube terminates in the trachea. Feeding tube terminate in the stomach. IMPRESSION: 1. Airspace consolidations at the lung bases, consistent with multilobar pneumonia. 2. Endotracheal tube terminates in the trachea. 3. Feeding tube terminate in the stomach. Electronically signed by: Ayad Mari MD 08/23/23 19:56 PM Code Status & VTE Plan Code Status Full code, presently intubated VTE Prophylaxis Plan VTE Prophylaxis will be ordered: Yes PG Care Time/CCT Total # of Minutes Spent Total Time Spent with Patient: Total time spent is greater than 50% in coordination of care (as documented) at patient's floor/unit and/or counseling patient: Coding Level of Care Code 38902 INT INP/OBS CARE 3/75MIN Diagnoses Cardiac arrest I46.9 Sepsis with acute organ dysfunction and septic shock A41.9; R65.21 Respiratory failure J96.00 Chronicity: acute Respiratory failure complication: unspecified whether with hypoxia or hypercapnia Aspiration pneumonia of both lower lobes J69.0 Admitted to intensive care unit Z78.9 Chronic anticoagulation Z79.01 Uncontrolled diabetes mellitus with hyperglycemia E11.65 BPH w urinary obs/LUTS N40.1; N13.8 History of stroke Z86.73 Hypertension I10 Gout M10.9 Peripheral neuropathy G62.9 Hyperlipidemia E78.5 GERD (gastroesophageal reflux disease) K21.9 (3) Respiratory failure Chronicity: acute Respiratory failure complication: unspecified whether with hypoxia or hypercapnia Qualified Code(s): J96.00 - Acute respiratory failure, unspecified whether with hypoxia or hypercapnia
[2023-08-23 21:00] LABS: Appearance Urine Turbid (Clear); Bacteria Urine Automated 4+ (None Seen); Bilirubin Urine 1+ (Negative); Blood Urine 3+ (Negative); Color Urine Dark Yellow; Glucose Urine UA 1+ (Negative); Ketones Urine Negative (Negative); Leukocyte Esterase Urine 3+ (Negative); Nitrite Urine Negative (Negative); Protein Urine 2+ (Negative); RBC Urine Automated >20 /hpf (0-2); Specific Gravity Urine 1.016 (1.000-1.030); Urobilinogen Urine Negative (Negative); WBC Urine Automated >50 /hpf (0-5); pH Urine 8.5 (4.5-7.5)
[2023-08-23 21:01] LABS: Cast Urine Automated 0-2 /lpf (0-2)
[2023-08-23] MEDS: DKA GOAL RANGE 150-250 mg/dl ONE (21:13)
[2023-08-23] MEDS ORDERED: STAT IV Infusion **Titration per Protocol STA ×3 (22:08→22:50)
[2023-08-23] MEDS ORDERED: ACETAMINOPHEN 1000 MG/100 ML IV IV PRN (22:12)
[2023-08-23] MEDS ORDERED: PROPOFOL BOLUS FROM BAG IV PRN (22:12)
[2023-08-23] MEDS ORDERED: ALBUT/IPRATROP 3MG/0.5MG NEB 3 ML VIAL NEB PRN (22:12)
[2023-08-23] MEDS ORDERED: Heparin IV Adult Wt-Based Low-Dose *NO* INITIAL Bolus Protocol IV STA (22:12)
[2023-08-23] MEDS ORDERED: fentaNYL citrate PF 100 MCG/2 ML VIAL IV PRN (22:12)
[2023-08-23] MEDS ORDERED: ONDANSETRON INJ 2 MG/ML 2 ML VIAL IV PRN (22:12)
[2023-08-23] MEDS: PLASMA-LYTE A 500 ML IV ONE (22:18)
[2023-08-23] MEDS ORDERED: ACETAMINOPHEN 1,000 MG/100 ML VIAL IV PRN (22:30)
[2023-08-23] MEDS: SODIUM CHLORIDE IV SCH (22:35)
[2023-08-23] MEDS: EPINEPHRINE IV SCH (22:35)
[2023-08-23] MEDS: VASOPRESSIN 20 UNITS in 0.9 % SODIUM CHLORIDE 100 ML IV SCH (22:39)
[2023-08-23] MEDS: LINEZOLID 600 MG/300 ML BAG IV SCH (22:49)
[2023-08-23 22:50] LABS: INR 3.2 (0.9-1.1); Partial Thromboplastin Ratio 1.6; Partial Thromboplastin Time 45 Seconds (21-31); Prothrombin Time 32.7 Seconds (9.0-12.0)
[2023-08-23] MEDS: HEPARIN 25000 UNIT/500 ML D5W IV ONE (22:50)
[2023-08-23] MEDS: MEROPENEM 500 MG in SYRINGE 0 ML IV SCH (22:50)
[2023-08-23] MEDS ORDERED: GLUCAGON FOR INJ 1 MG VIAL IM PRN (23:00)
[2023-08-23] MEDS ORDERED: CARBOHYDRATES FOR HYPOGLYCEMIA PO PRN (23:00)
[2023-08-23] MEDS ORDERED: GLUCOSE 10 TAB/TUBE PO PRN (23:00)
[2023-08-23] MEDS ORDERED: GLUCOSE 40% GEL 15 GM TUBE PO PRN (23:00)
[2023-08-23 23:04] LABS: iSTAT Art Bld Gas pCO2 Correct 38 mmHg (35-46); iSTAT Art Bld Gas pH Corrected 7.389 (7.35-7.45); iSTAT Arterial Blood Gas HCO3 22 meg/L (19-24); iSTAT Arterial Blood Gas pCO2 34 mmHg (35-46); iSTAT Arterial Blood Gas pH 7.42 (7.35-7.45); iSTAT Arterial Blood Gas pO2 97 mmHg (80-95); iSTAT Arterial Blood Gas pO2 C 110; iSTAT Carbon Dioxide 23 mmol/L (24-31); iSTAT FiO2 50 %; iSTAT Hematocrit 32 % (42-52); iSTAT Hemoglobin 10.9 g/dl (14.0-18.0); iSTAT Potassium 3.5 mmol/L (3.3-5.0); iSTAT Site Art Line; iSTAT Sodium 138 mmol/L (135-144)
[2023-08-23] MEDS: NOREPINEPHRINE/D5W 4 MG/250 ML PLCT IV SCH (23:08)
[2023-08-23] MEDS: propofoL 1,000 MG/100 ML VIAL IV SCH (23:10)
[2023-08-23] MEDS: HYDROCORTISONE SOD 100 MG in SYRINGE 0 ML IV STA (23:12)
[2023-08-23] MEDS: PLASMA-LYTE A 1,000 ML IV SCH (23:19)
[2023-08-23] MEDS: NovoLIN-R BOLUS FROM BAG IV ONE (23:30)
[2023-08-23] MEDS: INSULIN PROTOCOL GOAL RANGE ONE (23:40)
[2023-08-23] MEDS: HEPARIN SODIUM/DEXTROSE 25,000 UNITS/500 ML BAG IV SCH (23:42)
[2023-08-23] MEDS: ICU Protocol for HYPERglycemia SCH (23:42)
--- NOTE | 2023-08-23 23:49 | Procedure Note ---
Procedure Note Date of Service August 23, 2023 Note ARTERIAL LINE PROCEDURE NOTE: Procedure: Arterial Line Placement Proceduralist: Josemanuel THOMPSON ([facility]-) Attending: Dr. Dudley Indication: Monitoring on Pressors Anesthesia: [x]None Emergent Consent was implied as rapidly escalating vasopressors and is full code on life support. A time-out was completed verifying correct patient, procedure, site, positioning, and implant(s) or special equipment if applicable. Allens test was performed to ensure adequate perfusion. Patients RIGHT wrist was prepped and draped in the usual sterile fashion. Ultrasound guidance was used to aid needle placement. A 20g Arrow arterial line was introduced into the RIGHT RADIAL artery. Catheter was threaded, and the needle was removed with appropriate blood return. Pressure tubing was conected with adequate arterial waveform. The patient tolerated the procedure well. No immediate complications were met. Blood Loss: Minimal Complications: None Artery Identified: YES Complications: NONE Patient tolerated procedure: WELL Coding CPT Codes Tubes, Drains, and Vasc Access - Tubes, Drains, and Vasc Access: [id number] Arterial Cath/Cannulation Sampling/Monitoring/Transfusion ([id number]) [facility] [place] Codes (Charges) Tubes, Drains, and Vasc Access Procedure 1: Tubes, Drains, and Vasc Access: [id number] Arterial Cath/Cannulation Sampling/Monitoring/Transfusion
[2023-08-24] MEDS: PLASMA-LYTE A 500 ML IV ONE
[2023-08-24 02:36] LABS: Hematocrit (blood only) 35.7 % (42.0-52.0); Hemoglobin 12.3 g/dl (14.0-18.0); Mean Corpuscular Hemoglobin 26.8 pg (25.0-34.0); Mean Corpuscular Hgb Conc 34.5 g/dL (32.0-36.0); Mean Corpuscular Volume 77.8 fL (80.0-100.0); Mean Platelet Volume 10.7 fL (9.4-12.4); Platelet Count 181 K/uL (130-400); RDW Standard Deviation 39.6 fL (36.4-46.3); Red Blood Count 4.59 M/uL (4.70-6.10); White Blood Count 22.15 K/ul (4.8-10.8)
--- NOTE | 2023-08-24 02:56 | Billing Data ---
Date of Service August 24, 2023 Coding Level of Care Code 04496 CRITICAL CARE M
[2023-08-24 03:08] LABS: Basophils # (auto) 0.07 K/uL (0.00-0.20); Basophils % (auto) 0.3 %; Eosinophils # (auto) 0.05 K/uL (0.00-0.50); Eosinophils % (auto) 0.2 %; Immature Granulocytes # (auto) 0.23 K/uL (0.01-0.20); Lymphocytes # (auto) 0.63 K/uL (1.20-3.40); Lymphocytes % (auto) 2.8 %; Monocytes # (auto) 0.74 K/uL (0.11-0.59); Monocytes % (auto) 3.3 %; Neutrophils # (auto) 20.43 K/uL (1.40-6.50); Neutrophils % (auto) 92.4 %; RBC Morphology Unremarkable
[2023-08-24 03:17] LABS: INR 3.3 (0.9-1.1); Partial Thromboplastin Ratio 1.8; Partial Thromboplastin Time 50 Seconds (21-31); Prothrombin Time 33.5 Seconds (9.0-12.0)
[2023-08-24 03:19] LABS: Albumin Globulin Ratio 0.7 (0.9-2); Albumin Level 2.3 gm/dl (3.4-5.0); BUN Creatinine Ratio 21.4 (10-20); Creatinine Clr Calc Pharmacy 39.5 ml/min; Est GFR (African American) 36.1 ml/min; Est GFR (Non-African American) 31.2 ml/min; Globulin 3.1 gm/dl (2.5-4.0); Magnesium 1.7 mg/dl (1.7-2.4); Potassium 3.6 mmol/L (3.5-5.1); Total Protein 5.4 gm/dl (6.0-8.3); Troponin I High Sensitivity 287.3 pg/ml (0-20)
[2023-08-24] MEDS ORDERED: POTASSIUM PHOS 3 MMOL/1 ML INFUSION IV STA (04:01)
[2023-08-24] MEDS: HYDROCORTISONE SOD 50 MG in SYRINGE 0 ML IV SCH (04:18)
[2023-08-24] MEDS: POTASSIUM PHOSPHATE 9 MMOL in SODIUM CHLORIDE 0.9% 250 ML IV ONE (04:22)
--- NOTE | 2023-08-24 06:50 | XRay Report ---
XR chest 1V portable CLINICAL HISTORY: eval lung delcid, tubes/lines while intubated COMPARISON STUDY: Chest radiograph and CT August 22, 2020. FINDINGS: The tip of the endotracheal tube is 4.4 cm above the danette. Tip of nasogastric tube is wit hin the body of the stomach. Low lung volumes are again noted. There is a prosthetic aortic valve and median sternotomy wires. No pneumothorax or pleural effusion is present. Bibasilar opacities are gre ater on the left. These have slightly increased. There is pulmonary vascular congestion with possible mild pulmonary edema. IMPRESSION: 1. Satisfactory positioning of the endotracheal tube. 2. Increase in bibasilar opacities, greater on the left. The findings favor pneumonia or aspiration p neumonitis. 3. Cardiomegaly. Pulmonary vascular congestion with possible mild pulmonary edema. ACT 112: Negative or not required by law. Electronically signed by: Blaise Mckeon M.D. 08/24/2023 6:49 AM
[2023-08-24 06:52] LABS: A calco-baum cmplx NotReported Not Detected (NotDetected); Bact fragilis Not Reported Not Detected (NotDetected); Blood Culture Id Panel See PCR Comment (NotDetected); C auris Not Reported Not Detected (NotDetected); CTX-M Resistant Gene Not Detected (NotDetected); Calbicans Not Reported Not Detected (NotDetected); Candida glabrata Not Reported Not Detected (NotDetected); Candida krusei Not Reported Not Detected (NotDetected); Cneoformans/gatti Not Reported Not Detected (NotDetected); Cparapsilosis Not Reported Not Detected (NotDetected); E cloacae compx Not Reported Not Detected (NotDetected); Efaecalis Not Reported Not Detected (NotDetected); Efaecium Not Reported Not Detected (NotDetected); Enterobacterales DETECTED (NotDetected); Enterobacterales Not Reported DETECTED (NotDetected); Escherichia coli Not Reported Not Detected (NotDetected); H influenzae Not Reported Not Detected (NotDetected); IMP Resistant Gene Not Detected (NotDetected); K aerogenes Not Reported Not Detected (NotDetected); KPC Resistant Gene Not Detected (NotDetected); Koxytoca Not Reported Not Detected (NotDetected); Kpneumoniae grp Not Reported Not Detected (NotDetected); Lmonocyt Not Reported Not Detected (NotDetected); N meningitidis Not Reported Not Detected (NotDetected); NDM Resistant Gene Not Detected (NotDetected); OXA 48 Like Resistant Gene Not Detected (NotDetected); P aeruginosa Not Reported Not Detected (NotDetected); Proteus spp Not Reported DETECTED (NotDetected); Salmonella spp Not Reported Not Detected (NotDetected); Smarcescens Not Reported Not Detected (NotDetected); Staph lugdunensis Not Reported Not Detected (NotDetected); Staph spp. Not Reported DETECTED (NotDetected); Staphaureus Not Reported Not Detected (NotDetected); Staphepi Not Reported Not Detected (NotDetected); Stenmaltophilia Not Reported Not Detected (NotDetected); Strep agal(GrpB) Not Reported Not Detected (NotDetected); Strep pneum Not Reported Not Detected (NotDetected); Strep pyog (GrpA) Not Reported Not Detected (NotDetected); Strep spp Not Reported Not Detected (NotDetected); VIM Resistant Gene Not Detected (NotDetected)
--- NOTE | 2023-08-24 06:55 | XRay Report ---
XR chest 1V portable HISTORY: 57 years-old Male Sepsis acute sepsis COMPARISON: Chest CT of same day TECHNIQUE: AP view of the chest FINDINGS: Endotracheal tube overlies the midline, 4.3 cm superior to the danette. Enteric tube courses into the stomach with distal tip outside the [id number]. Cardiomegaly with median sternotomy and prosthetic aortic valve. Pulmonary vascular congestion. Mild dependent bibasilar atelectasis. Bones appear rhett sly intact. IMPRESSION: 1. Cardiomegaly with pulmonary vascular congestion. 2. Endotracheal and enteric tube placement as above. ACT 112: Negative or not required by law. The above report was generated using voice recognition software. It may contain grammatical, syntax o r spelling errors. Electronically signed by: Eugene Navas M.D. 08/24/2023 6:54 AM
[2023-08-24] MEDS: INSULIN ASPART PER UNIT CHARGE SC SCH (07:30)
[2023-08-24 07:48] LABS: Proteus species DETECTED (NotDetected); Staphylococcus spp. DETECTED (NotDetected)
[2023-08-24] MEDS: Heparin IV Adult Wt-Based Low-Dose *NO* INITIAL Bolus Protocol IV SCH (08:36)
--- NOTE | 2023-08-24 08:43 | Critical Care Progress Note ---
Date of Service August 24, 2023 Assessment & Plan (1) Septic shock: (2) Respiratory failure: (3) Cardiac arrest: (4) Uncontrolled diabetes mellitus with hyperglycemia: (5) History of stroke: (6) Chronic anticoagulation: (7) Sepsis with acute organ dysfunction and septic shock: Plan Impression:: 57-year-old male with severe sepsis with septic shock secondary to Proteus UTI/bacteremia with prior history of stroke admitted with out of hospital cardiac arrest- PEA on arrival likely secondary to respiratory arrest secondary to metabolic encephalopathy and septic shock 24-hour events: Patient presented to the emergency room. He was intubated. Central line and vasopressors were started after crystalloid resuscitation. Broad-spectrum antibiotics administered. He is responded favorably in the ICU with significant decrease in his pressor requirements. His arterial line became nonfunctional this morning. Recommendations Neuro -mlr-pj-riikyjef PEA arrest with unknown downtime however neurologically the patient appears to have responded favorably without significant sequelae. He does have a prior stroke with significant neurological sequelae with paresis of the left upper and lower extremities. No indication for advanced imaging at this point in time. Will follow clinically. Will need PT and OT once extubated. For now continue sedation with propofol and fentanyl Cardiac -PEA arrest due to severe septic shock and metabolic disarray. Hemodynamics are improving. Down to a minimal amount of norepinephrine currently. Await echocardiogram. Try and get outside records regarding the patient's complex cardiovascular history. Check noninvasive fluid responsiveness indices Respiratory -CT reviewed. No evidence of pneumonia. GI -elevated LFTs likely due to hypoperfusion. Continue to trend. Discontinue IV Tylenol. Keep n.p.o. until off pressors. RENAL/LYTES -acute kidney injury. Baseline creatinine unknown. Likely ATN due to hypoperfusion. Continue to monitor for now. Will replace electrolytes as needed. Monitor acid-base status. Fluid status is acceptable. -urosepsis with Proteus in urine and blood. Continue Davis catheter for now ENDO - continue insulin infusion per ICU protocol. HEME -marked leukocytosis secondary to infection. Continue to trend. No other acute issues ID -severe sepsis. Proteus in urine and blood likely offending agent. Transition to cefepime. No indication for Zyvox. Suspect the coag negative staph is a contaminant however will await finalization of blood cultures and transition to vancomycin for now. Follow-up with echocardiogram. LINES/IV ACCESS - PIV, CVL, ETT, OGT, Continue use of these lines DVT PROPHYLAXIS -therapeutically anticoagulated on Coumadin. Hold for now until INR drops down. Will try and get information on the type of heart valve he has which will dictate anticoagulation moving forward DISPO: ICU while intubated and sedated as well as requiring vasopressor support. I have personally spent 65 minutes of critical care time in the direct management of this patient. This is a life/limb threatening event. This includes time spent evaluating patient, direct bedside care, chart review, placing orders, interpretation of diagnostic studies, discussion with consultants, patient, and family members, as well as other required patient management activities. This time is exclusive of all separately billable procedures, and teaching time and separate from and in addition to any other critical care service time. Admission and Anticipated Discharge Date Admission Date: August 23, 2023 Subjective Patient is intubated and sedated. He is awake enough to follow commands. Review of Systems Review of Systems: Unobtainable due to endotracheal tube Physical Exam Constitutional: WD/WN, vitals as above + mechanically ventilated Neck: trachea midline, no thyromegaly Respiratory: normal respiratory effort, lungs clear to auscultation Cardiovascular: RRR, no murmur, no edema Gastrointestinal (Abdomen): normal bowel sounds, soft, nontender, no hepatosplenomegaly Musculoskeletal: Extremities: extremities normal to inspection Skin: no rashes, warm and dry Neurologic: Prior stroke on the left with paresthesias. He is able to move the right side. He nods his head in response to questions. Lymphatic: no cervical lymphadenopathy Results & Data Results & Data Vital Signs (Past 12 Hours) Vital Signs Temp Pulse Resp BP Pulse Ox Pulse Ox O2 Del Method 08/24/23 07:24 79 21 96 08/24/23 07:00 115/75 08/24/23 07:00 36.4 C L 70 18 96 08/24/23 06:00 122/85 08/24/23 06:00 36.5 C 81 20 97 08/24/23 05:30 127/79 08/24/23 05:30 36.6 C 79 27 H 08/24/23 05:00 130/86 08/24/23 05:00 36.5 C 67 18 98 08/24/23 04:30 36.2 C L 66 18 99 08/24/23 04:30 131/85 08/24/23 04:17 36.4 C L 66 18 98 08/24/23 04:17 125/80 08/24/23 04:00 08/24/23 03:45 113/67 08/24/23 03:45 36.3 C L 57 L 18 99 08/24/23 03:30 36.3 C L 57 L 18 99 08/24/23 03:30 120/73 08/24/23 03:00 123/69 08/24/23 03:00 35.7 C L 56 L 18 99 08/24/23 02:54 22 08/24/23 02:45 116/68 08/24/23 02:45 36.2 C L 58 L 18 99 08/24/23 02:30 121/76 08/24/23 02:30 35.9 C L 62 18 99 08/24/23 02:15 36.3 C L 57 L 18 99 08/24/23 02:15 110/66 08/24/23 02:00 122/68 08/24/23 02:00 36.4 C L 59 L 18 98 08/24/23 01:45 116/71 08/24/23 01:45 36.5 C 62 18 99 08/24/23 01:30 119/70 08/24/23 01:30 36.6 C 64 18 99 08/24/23 01:15 117/72 08/24/23 01:15 37.0 C 61 18 98 08/24/23 01:00 37.1 C 67 18 98 08/24/23 01:00 114/65 08/24/23 00:45 112/68 08/24/23 00:45 37.2 C 71 18 98 08/24/23 00:30 114/69 08/24/23 00:30 71 18 98 08/24/23 00:15 117/66 08/24/23 00:15 73 18 99 08/24/23 00:00 70 08/24/23 00:00 106/61 08/24/23 00:00 37.7 C H 71 18 99 08/24/23 00:00 08/23/23 23:45 109/59 L 08/23/23 23:45 72 18 100 08/23/23 23:30 105/63 04/17/24 23:30 74 18 100 08/23/23 23:15 76 18 100 08/23/23 23:15 105/59 L 08/23/23 23:10 102/63 08/23/23 23:10 38.9 C H 76 18 100 08/23/23 23:00 39.0 C H 77 18 100 08/23/23 23:00 90/61 L 08/23/23 22:45 70/56 L 08/23/23 22:45 39.2 C H 81 18 97 08/23/23 22:30 Mechanical Vent 08/23/23 22:17 Mechanical Vent 08/23/23 22:12 99 08/23/23 22:09 20 08/23/23 21:23 105/66 08/23/23 21:23 39.7 C H 87 21 99 08/23/23 21:22 106/64 08/23/23 21:22 39.7 C H 87 19 99 08/23/23 21:21 39.7 C H 88 20 99 08/23/23 21:21 105/64 08/23/23 21:20 106/64 08/23/23 21:20 39.8 C H 88 19 99 08/23/23 21:19 109/69 08/23/23 21:19 39.8 C H 91 H 22 99 08/23/23 21:18 39.8 C H 90 14 98 08/23/23 21:18 106/70 08/23/23 21:17 108/68 08/23/23 21:17 39.8 C H 88 21 98 08/23/23 21:16 104/70 08/23/23 21:16 39.8 C H 88 22 99 08/23/23 21:15 Mechanical Vent 08/23/23 21:15 107/67 08/23/23 21:15 39.8 C H 87 21 99 08/23/23 21:14 109/62 08/23/23 21:14 39.8 C H 87 21 99 08/23/23 21:13 39.9 C H 86 21 99 08/23/23 21:13 105/65 08/23/23 21:12 106/66 08/23/23 21:12 39.9 C H 86 23 99 08/23/23 21:11 105/66 04/17/24 21:11 39.9 C H 85 20 99 08/23/23 21:10 39.9 C H 85 19 99 08/23/23 21:10 105/64 08/23/23 21:09 104/64 08/23/23 21:09 39.9 C H 84 21 99 08/23/23 21:08 39.9 C H 85 19 99 08/23/23 21:08 101/67 08/23/23 21:07 39.9 C H 85 22 99 08/23/23 21:07 106/67 08/23/23 21:06 101/64 08/23/23 21:06 39.9 C H 84 21 99 08/23/23 21:05 39.9 C H 83 25 H 99 08/23/23 21:05 106/64 08/23/23 21:04 40.0 C H 87 20 99 08/23/23 21:04 106/69 08/23/23 21:03 103/64 08/23/23 21:03 40.0 C H 85 20 99 08/23/23 21:02 108/67 08/23/23 21:02 40.0 C H 86 22 99 08/23/23 21:01 40.0 C H 87 22 99 08/23/23 21:01 103/67 08/23/23 21:00 40.0 C H 88 22 98 08/23/23 21:00 110/67 08/23/23 20:59 107/66 08/23/23 20:59 40.0 C H 87 22 99 O2 Del Method FiO2 08/24/23 07:24 50 08/24/23 07:00 08/24/23 07:00 08/24/23 06:00 08/24/23 06:00 08/24/23 05:30 08/24/23 05:30 08/24/23 05:00 08/24/23 05:00 08/24/23 04:30 08/24/23 04:30 08/24/23 04:17 08/24/23 04:17 08/24/23 04:00 50 08/24/23 03:45 08/24/23 03:45 08/24/23 03:30 08/24/23 03:30 08/24/23 03:00 08/24/23 03:00 08/24/23 02:54 50 08/24/23 02:45 08/24/23 02:45 08/24/23 02:30 08/24/23 02:30 08/24/23 02:15 08/24/23 02:15 08/24/23 02:00 08/24/23 02:00 08/24/23 01:45 08/24/23 01:45 08/24/23 01:30 08/24/23 01:30 08/24/23 01:15 08/24/23 01:15 08/24/23 01:00 08/24/23 01:00 08/24/23 00:45 08/24/23 00:45 08/24/23 00:30 08/24/23 00:30 08/24/23 00:15 08/24/23 00:15 08/24/23 00:00 08/24/23 00:00 08/24/23 00:00 08/24/23 00:00 50 08/23/23 23:45 08/23/23 23:45 08/23/23 23:30 08/23/23 23:30 08/23/23 23:15 08/23/23 23:15 08/23/23 23:10 08/23/23 23:10 08/23/23 23:00 08/23/23 23:00 08/23/23 22:45 08/23/23 22:45 08/23/23 22:30 08/23/23 22:17 08/23/23 22:12 Mechanical Vent 08/23/23 22:09 50 08/23/23 21:23 08/23/23 21:23 08/23/23 21:22 08/23/23 21:22 08/23/23 21:21 08/23/23 21:21 08/23/23 21:20 08/23/23 21:20 08/23/23 21:19 08/23/23 21:19 08/23/23 21:18 08/23/23 21:18 08/23/23 21:17 08/23/23 21:17 08/23/23 21:16 08/23/23 21:16 08/23/23 21:15 08/23/23 21:15 08/23/23 21:15 08/23/23 21:14 08/23/23 21:14 08/23/23 21:13 08/23/23 21:13 08/23/23 21:12 08/23/23 21:12 08/23/23 21:11 08/23/23 21:11 08/23/23 21:10 08/23/23 21:10 08/23/23 21:09 08/23/23 21:09 08/23/23 21:08 08/23/23 21:08 08/23/23 21:07 08/23/23 21:07 08/23/23 21:06 08/23/23 21:06 08/23/23 21:05 08/23/23 21:05 08/23/23 21:04 08/23/23 21:04 08/23/23 21:03 08/23/23 21:03 08/23/23 21:02 08/23/23 21:02 08/23/23 21:01 08/23/23 21:01 08/23/23 21:00 08/23/23 21:00 08/23/23 20:59 08/23/23 20:59 Critical Care Results & Data Vital Signs (Past 12 Hours) Vital Signs Temp Pulse Resp BP Pulse Ox FiO2 08/24/23 08:00 50 08/24/23 07:24 79 21 96 50 08/24/23 07:00 115/75 08/24/23 07:00 36.4 C L 70 18 96 08/24/23 06:00 122/85 08/24/23 06:00 36.5 C 81 20 97 08/24/23 05:30 127/79 08/24/23 05:30 36.6 C 79 27 H 08/24/23 05:00 130/86 08/24/23 05:00 36.5 C 67 18 98 08/24/23 04:30 36.2 C L 66 18 99 08/24/23 04:30 131/85 08/24/23 04:17 36.4 C L 66 18 98 08/24/23 04:17 125/80 08/24/23 04:00 50 08/24/23 03:45 113/67 08/24/23 03:45 36.3 C L 57 L 18 99 08/24/23 03:30 36.3 C L 57 L 18 99 08/24/23 03:30 120/73 08/24/23 03:00 123/69 08/24/23 03:00 35.7 C L 56 L 18 99 08/24/23 02:54 22 50 08/24/23 02:45 116/68 08/24/23 02:45 36.2 C L 58 L 18 99 08/24/23 02:30 121/76 08/24/23 02:30 35.9 C L 62 18 99 08/24/23 02:15 36.3 C L 57 L 18 99 08/24/23 02:15 110/66 08/24/23 02:00 122/68 08/24/23 02:00 36.4 C L 59 L 18 98 08/24/23 01:45 116/71 08/24/23 01:45 36.5 C 62 18 99 08/24/23 01:30 119/70 08/24/23 01:30 36.6 C 64 18 99 08/24/23 01:15 117/72 08/24/23 01:15 37.0 C 61 18 98 08/24/23 01:00 37.1 C 67 18 98 08/24/23 01:00 114/65 08/24/23 00:45 112/68 08/24/23 00:45 37.2 C 71 18 98 08/24/23 00:30 114/69 08/24/23 00:30 71 18 98 08/24/23 00:15 117/66 08/24/23 00:15 73 18 99 08/24/23 00:00 70 08/24/23 00:00 106/61 08/24/23 00:00 37.7 C H 71 18 99 08/24/23 00:00 50 08/23/23 23:45 109/59 L 08/23/23 23:45 72 18 100 08/23/23 23:30 105/63 08/23/23 23:30 74 18 100 08/23/23 23:15 76 18 100 08/23/23 23:15 105/59 L 08/23/23 23:10 102/63 08/23/23 23:10 38.9 C H 76 18 100 08/23/23 23:00 39.0 C H 77 18 100 08/23/23 23:00 90/61 L 08/23/23 22:45 70/56 L 08/23/23 22:45 39.2 C H 81 18 97 Lab & Micro Results (Past 24 Hours) RBC 4.59 M/uL (4.70-6.10) L 08/24/23 WBC 22.15 K/ul (4.8-10.8) H 08/24/23 Hgb 12.3 g/dl (14.0-18.0) L 08/24/23 Hct 35.7 % (42.0-52.0) L 08/24/23 MCV 77.8 fL (80.0-100.0) L 08/24/23 MCH 26.8 pg (25.0-34.0) 08/24/23 MCHC 34.5 g/dL (32.0-36.0) 08/24/23 RDW Standard Deviation 39.6 fL (36.4-46.3) 08/24/23 RDW Coefficient of Variation 14.0 % (11.5-14.5) 08/24/23 Plt Count 181 K/uL (130-400) 08/24/23 MPV 10.7 fL (9.4-12.4) 08/24/23 Neutrophils (%) (Auto) 92.4 % 08/24/23 Lymphocytes (%) (Auto) 2.8 % 08/24/23 Monocytes # (Auto) 0.74 K/uL (0.11-0.59) H 08/24/23 Eosinophils # (Auto) 0.05 K/uL (0.00-0.50) 08/24/23 Immature Granulocyte % (Auto) 1.0 % 08/24/23 Neutrophils # (Auto) 20.43 K/uL (1.40-6.50) H 08/24/23 Lymphocytes # (Auto) 0.63 K/uL (1.20-3.40) L 08/24/23 Monocytes # (Auto) 0.74 K/uL (0.11-0.59) H 08/24/23 Eosinophils # (Auto) 0.05 K/uL (0.00-0.50) 08/24/23 Basophils # (Auto) 0.07 K/uL (0.00-0.20) 08/24/23 Immature Granulocyte # (Auto) 0.23 K/uL (0.01-0.20) H 08/23 Red Blood Cell Morphology Unremarkable 08/24/23 Basophilic Stippling Occasional 08/23/23 Na 134 mmol/L (136-145) L 08/24/23 K 3.6 mmol/L (3.5-5.1) 08/24/23 Cl 102 mmol/L (98-107) 08/24/23 CO2 23 mmol/L (21-32) 08/24/23 Anion Gap 9 (3-11) 08/24/23 BUN 48 mg/dl (6-23) H 08/24/23 Creatinine 2.24 mg/dl (0.6-1.4) H 08/24/23 Estimated GFR ( Amer) 36.1 ml/min 08/24/23 Estimated GFR (Non-Af Amer) 31.2 ml/min 08/24/23 BUN/Creatinine Ratio 21.4 (10-20) H 08/24/23 Glu 334 mg/dl (70-99(Fasting)) H* 08/24/23 Ca 8.0 mg/dl (8.6-10.3) L 08/24/23 Phosphorus Level 2.0 mg/dl (2.5-4.9) L 08/24/23 Total Bilirubin 2.0 mg/dl (0.2-1.0) H 08/24/23 Direct Bilirubin 0.6 mg/dl (0-0.2) H 08/23/23 AST 224 U/L (13-39) H 08/24/23 ALT 148 U/L (7-52) H 08/24/23 Alkaline Phosphatase 200 U/L (34-104) H 08/24/23 TP 5.4 gm/dl (6.0-8.3) L 08/24/23 Albumin 2.3 gm/dl (3.4-5.0) L 08/24/23 Globulin 3.1 gm/dl (2.5-4.0) 08/24/23 Albumin/Globulin Ratio 0.7 (0.9-2) L 08/24/23 Mg 1.7 mg/dl (1.7-2.4) 08/24/23 02:12 Calcium Level 8.0 mg/dl (8.6-10.3) L 08/24/23 02:12 Prothromb Time International Ratio 3.3 (0.9-1.1) H 08/24/23 02 :12 Lawrence Test NA 08/23/23 22:48 Microbiology 08/23/23 19:16 Urine Culture - Preliminary Urine,Clean Catch Proteus species 08/23/23 19:08 Aerobic Blood Culture - Preliminary Blood Gram negative bacilli Anaerobic Blood Culture - Preliminary Gram negative bacilli Gram positive cocci clusters Diagnostic Findings (Past 24 Hours) Chest X-Ray 08/23/23 18:42 XR chest 1V portable HISTORY: 57 years-old Male Sepsis acute sepsis COMPARISON: Chest CT of same day TECHNIQUE: AP view of the chest FINDINGS: Endotracheal tube overlies the midline, 4.3 cm superior to the danette. Enteric tube courses into the stomach with distal tip outside the [id number]. Cardiomegaly with median sternotomy and prosthetic aortic valve. Pulmonary vascular congestion. Mild dependent bibasilar atelectasis. Bones appear grossly intact. IMPRESSION: 1. Cardiomegaly with pulmonary vascular congestion. 2. Endotracheal and enteric tube placement as above. ACT 112: Negative or not required by law. The above report was generated using voice recognition software. It may contain grammatical, syntax or spelling errors. Electronically signed by: Eugene Navas M.D. 08/24/2023 6:[address] 08/23/23 19:07 Exam(s): CT HEAD Without Contrast EXAM: CT Head Without Intravenous Contrast CLINICAL HISTORY: Reason for exam: AMS. TECHNIQUE: Axial computed tomography images of the head/brain without intravenous contrast. CTDI is 37.12 mGy and DLP is 624.41 mGy-cm. Automated exposure control was utilized for the study. A dose lowering technique was utilized adhering to the principles of ALARA. COMPARISON: No relevant prior studies available. FINDINGS: No acute intracranial hemorrhage. No midline shift or mass effect. The territorial mota-white matter differentiation is maintained throughout. Age-related cerebral volume loss. Periventricular and subcortical white matter hypoattenuation, consistent with chronic microangiopathy. The visualized orbits appear grossly unremarkable. The calvarium is intact. The visualized paranasal sinuses and mastoid air cells are grossly clear. IMPRESSION: No acute intracranial hemorrhage, midline shift, or mass effect. Electronically signed by: Ayad Mari MD 08/23/23 19:55 PM Abdomen/Pelvis CT 08/23/23 19:09 Exam(s): CT ABDOMEN + PELVIS Without Contrast EXAM: CT Abdomen and Pelvis Without Intravenous Contrast CLINICAL HISTORY: Reason for exam: AMS. TECHNIQUE: Axial computed tomography images of the abdomen and pelvis without intravenous contrast. CTDI [place] 32.8 [place] [address].529 mGy-cm. Automated exposure control was utilized for the study. A dose lowering technique was utilized adhering to the principles of ALARA. COMPARISON: No relevant prior studies available. FINDINGS: Lung bases: Unremarkable. No mass. No consolidation. ABDOMEN: Liver: Unremarkable. Gallbladder and bile ducts: Cholecystectomy. No ductal dilation. Pancreas: Unremarkable. No ductal dilation. Spleen: Unremarkable. No splenomegaly. Adrenals: Unremarkable. No mass. Kidneys and ureters: Nonobstructing stone in the LEFT renal pelvis measures 7 mm. Obstructing stone in the LEFT proximal ureter measures 6 mm. Mild hydronephrosis of the LEFT kidney impression. Stomach and bowel: Moderate fecal retention, correlate for constipation. No bowel obstruction. No free air. No mucosal thickening. PELVIS: Appendix: No findings to suggest acute appendicitis. Bladder: Severe wall thickening of the urinary bladder which measures up to 1.8 cm in thickness. Indwelling Davis catheter. Correlate for UTI. No stones. Reproductive: Unremarkable as visualized. ABDOMEN and PELVIS: Intraperitoneal space: See above. Bones/joints: No acute fracture. No dislocation. Soft tissues: Unremarkable. Vasculature: Vascular calcifications. Vascular calcifications are present. No abdominal aortic aneurysm. Lymph nodes: Unremarkable. No enlarged lymph nodes. Tubes, lines and devices: Feeding tube terminates in the stomach. IMPRESSION: 1. Severe wall thickening of the urinary bladder which measures up to 1. 8 cm in thickness. Indwelling Davis catheter. Correlate for UTI. 2. Feeding tube terminates in the stomach. 3. Cholecystectomy. 4. Moderate fecal retention, correlate for constipation. No bowel obstruction. No free air. Electronically signed by: Ayad Mari MD 08/23/23 19:[address] 08/23/23 19:09 Exam(s): CT CHEST Without Contrast EXAM: CT Chest Without Intravenous Contrast CLINICAL HISTORY: Reason for exam: AMS. TECHNIQUE: Axial computed tomography images of the chest without intravenous contrast. CTDI is 36.96 mGy and DLP is 1174.99 mGy-cm. Automated exposure control was utilized for the study. A dose lowering technique was utilized adhering to the principles of ALARA. COMPARISON: No relevant prior studies available. FINDINGS: Lungs: Airspace consolidations at the lung bases, consistent with multilobar pneumonia. No mass. Pleural space: Unremarkable. No pneumothorax. No significant effusion. Heart: Unremarkable. No cardiomegaly. No significant pericardial effusion. No significant coronary artery calcifications. Bones/joints: Sternotomy wires. No acute fracture. No dislocation. Soft tissues: Unremarkable. Vasculature: Unremarkable. No thoracic aortic aneurysm. Lymph nodes: Unremarkable. No enlarged lymph nodes. Gallbladder and bile ducts: Cholecystectomy. Tubes, lines and devices: Endotracheal tube terminates in the trachea. Feeding tube terminate in the stomach. IMPRESSION: 1. Airspace consolidations at the lung bases, consistent with multilobar pneumonia. 2. Endotracheal tube terminates in the trachea. 3. Feeding tube terminate in the stomach. Electronically signed by: Ayad Mari MD 08/23/23 19:56 PM Chest X-Ray 08/24/23 05:00 XR chest 1V portable CLINICAL HISTORY: eval lung delcid, tubes/lines while intubated COMPARISON STUDY: Chest radiograph and CT August 22, 2020. FINDINGS: The tip of the endotracheal tube is 4.4 cm above the danette. Tip of nasogastric tube is within the body of the stomach. Low lung volumes are again noted. There is a prosthetic aortic valve and median sternotomy wires. No pneumothorax or pleural effusion is present. Bibasilar opacities are greater on the left. These have slightly increased. There is pulmonary vascular congestion with possible mild pulmonary edema. IMPRESSION: 1. Satisfactory positioning of the endotracheal tube. 2. Increase in bibasilar opacities, greater on the left. The findings favor pneumonia or aspiration pneumonitis. 3. Cardiomegaly. Pulmonary vascular congestion with possible mild pulmonary edema. ACT 112: Negative or not required by law. Electronically signed by: Blaise Mckeon M.D. 08/24/2023 6:49 AM I & O Totals 24 Hours 08/23/23 08/24/23 08/25/23 06:59 06:59 06:59 Intake Total 6285.607 / 6285.607 107.028 / 107.028 Output Total 865 / 865 325 / 325 Balance 5420.607 / 5420.607 -217.972 / -217.972 Cumulative 08/23/23 18:33 thru 08/24/23 08:59 Intake Total 6392.635 Output Total 1190 Balance 5202.635 RT Ventilator Mngmt (Last Documented) Ventilator Ordered Settings Ventilator Support Mode Assist Control 08/24/23 07:24 Respiratory Rate 21 08/24/23 07:24 Ventilator Tidal Volume 450 08/24/23 08:00 Setting Minute Ventilation 8 08/24/23 07:24 Positive End Expiratory 5 08/24/23 08:00 Pressure Fraction of Inspired Oxygen 50 08/24/23 08:00 Ventilator - PT Measurements Respiratory Rate 21 Exhaled Tidal Volume 450 Minute Ventilation 8 Peak Inspiratory Airway 22 Pressure Plateau Pressure 17.3 Respiratory Cycle Inspiratory: 1:2.6 Expiratory Ratio Inspiratory Phase Time 0.9 End-Tidal CO2 33 Static Lung Compliance 36.59 Dynamic Lung Compliance 26.47 Normal Static Lung Compliance 47.00 Coding Level of Care Code 68825 CRITICAL CARE 1ST 30-74M Diagnoses Septic shock A41.9; R65.21 Respiratory failure J96.00 Chronicity: acute Respiratory failure complication: unspecified whether with hypoxia or hypercapnia Cardiac arrest I46.9 Uncontrolled diabetes mellitus with hyperglycemia E11.65 History of stroke Z86.73 Chronic anticoagulation Z79.01 Sepsis with acute organ dysfunction and septic shock A41.9; R65.21 (2) Respiratory failure Chronicity: acute Respiratory failure complication: unspecified whether with hypoxia or hypercapnia Qualified Code(s): J96.00 - Acute respiratory failure, unspecified whether with hypoxia or hypercapnia
[2023-08-24] MEDS ORDERED: SODIUM PHOSPHATE 3 MMOL/1 ML INFUSION IV STA (10:36)
[2023-08-24] MEDS ORDERED: VANCOMYCIN CONSULT ACTIVE PRN (10:46)
--- NOTE | 2023-08-24 11:20 | Pharmacy Report ---
Pharmacy PK ABX Note - Date of Service August 24, 2023 - Assessment and Plan Assessment 57 year old M receiving cefepime/vancomcyin for treatment of bacteremia. Pertinent microbiologic data includes: Urine/Blood cultures positive for Proteus species, 1/4 coag negative staph. Patient previously on meropenem + linezolid after receiving a dose of vancomycin/ceftriaxone in the ED. Plan to transition linezolid to vancomycin pending final results. Patient with ARMIT on admission, does seem to be downtrending will get level with AM labs. Plan Vancomycin * Loading dose: 1500 mg IV x 1 in the ED * Maintenance dose: 1500 mg IV every 24 hours * Regimen is predicted to achieve target AUC/JANICE of 400-600 mg/L.hr * Random level ordered with 18 AM labs Pharmacy will continue to follow and will adjust dose/frequency as necessary. Thank you. Pharmacy has transitioned to AUC monitoring for vancomycin. AUC/JANICE is the preferred PK/PD target and is associated with decreased risk of nephrotoxicity compared to traditional trough targets.
[2023-08-24] MEDS: CALCIUM CHLORIDE 10% 1,000 MG in DEXTROSE 5% 50 ML IV STA (11:26)
[2023-08-24] MEDS: VANCOMYCIN HCL 1,500 MG in SODIUM CHLORIDE 0.9% 500 ML IV SCH (11:26)
[2023-08-24] MEDS: SODIUM PHOSPHATE 12 MMOL in SODIUM CHLORIDE 0.9% 250 ML IV ONE (11:26)
[2023-08-24] MEDS: PANTOprazole 40 MG in SYRINGE 0 ML IV SCH (11:27)
[2023-08-24] MEDS: LACTATED RINGER'S 1,000 ML IV ONE (11:28)
[2023-08-24] MEDS: CEFEPIME 2,000 MG in SYRINGE 0 ML IV SCH (12:20)
--- NOTE | 2023-08-24 12:40 | Hospitalist Progress Note ---
Date of Service August 24, 2023 Assessment & Plan (1) Cardiac arrest: Plan: Outside of the hospital. The patient was found down and resuscitation efforts were successful. Will obtain cardiac echo and cardiology consultation when appropriate. Currently on a heparin drip (2) Sepsis with acute organ dysfunction and septic shock: Plan: Possible septic shock present on admission. Cultures are pending. He is now on linezolid and meropenem (3) Respiratory failure: Plan: Currently on ventilator support. Extubate as tolerated (4) Aspiration pneumonia of both lower lobes: Plan: Suspected aspiration pneumonia in both lower lobes. Currently on linezolid and meropenem, day 2. Serial chest x-ray (5) Chronic anticoagulation: Plan: With Coumadin. Currently on a heparin drip. INR was 3.3 today, August 23 (6) Uncontrolled diabetes mellitus with hyperglycemia: Plan: Type 2 diabetes. 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 Plan To be determined. 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 He has a chronic left hemiparesis from old CVA. The signs are very encouraging. He has yet to be weaned off the ventilator however. Review of Systems 2 Review of Systems: Cannot assess due to intubated status Physical Exam 2 Physical Exam: General-intubated but arousable and able to follow simple commands HEENT-head atraumatic and normocephalic, pupils equal and reactive to light, extraocular muscles intact. He tracks appropriately with his eyes Neck-no lymphadenopathy or thyromegaly, trachea midline Chest-clear to auscultation anteriorly. 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 He has known chronic left hemiparesis from old CVA Psych-cannot assess Results & Data Results & Data Vital Signs (Past 12 Hours) Vital Signs Temp Pulse Resp BP Pulse Ox FiO2 08/24/23 11:45 97/63 L 08/24/23 11:45 36.5 C 65 18 97 08/24/23 11:39 36.6 C 69 18 95 08/24/23 11:39 108/69 08/24/23 11:35 36.7 C 73 18 96 08/24/23 11:30 36.7 C 75 18 95 08/24/23 11:25 36.6 C 77 19 96 08/24/23 11:25 81/54 L 08/24/23 11:23 36.6 C 75 18 96 08/24/23 11:23 80/55 L 08/24/23 11:15 36.6 C 81 18 95 08/24/23 11:15 85/61 L 08/24/23 11:06 82/59 L 08/24/23 11:06 36.6 C 85 22 08/24/23 11:00 36.5 C 24 100 08/24/23 10:45 36.4 C L 85 20 95 08/24/23 10:45 119/72 08/24/23 10:30 106/76 08/24/23 10:30 36.4 C L 81 18 97 08/24/23 10:15 109/66 08/24/23 10:15 36.4 C L 81 19 96 08/24/23 10:00 127/73 08/24/23 10:00 36.5 C 79 18 99 08/24/23 09:30 118/83 08/24/23 09:30 36.5 C 78 18 96 08/24/23 09:09 36.5 C 76 18 96 08/24/23 08:33 123/81 08/24/23 08:33 36.4 C L 95 H 17 87 L 08/24/23 08:32 36.4 C L 73 15 97 08/24/23 08:00 76 08/24/23 08:00 119/77 08/24/23 08:00 36.3 C L 81 20 97 08/24/23 08:00 50 08/24/23 07:30 136/81 08/24/23 07:30 36.3 C L 84 26 H 87 L 08/24/23 07:24 79 21 96 50 08/24/23 07:00 115/75 08/24/23 07:00 36.4 C L 70 18 96 08/24/23 06:00 122/85 08/24/23 06:00 36.5 C 81 20 97 08/24/23 05:30 127/79 08/24/23 05:30 36.6 C 79 27 H 08/24/23 05:00 130/86 08/24/23 05:00 36.5 C 67 18 98 08/24/23 04:30 36.2 C L 66 18 99 08/24/23 04:30 131/85 08/24/23 04:17 36.4 C L 66 18 98 08/24/23 04:17 125/80 08/24/23 04:00 50 08/24/23 03:45 113/67 08/24/23 03:45 36.3 C L 57 L 18 99 08/24/23 03:30 36.3 C L 57 L 18 99 08/24/23 03:30 120/73 08/24/23 03:00 123/69 08/24/23 03:00 35.7 C L 56 L 18 99 08/24/23 02:54 22 50 08/24/23 02:45 116/68 08/24/23 02:45 36.2 C L 58 L 18 99 08/24/23 02:30 121/76 08/24/23 02:30 35.9 C L 62 18 99 08/24/23 02:15 36.3 C L 57 L 18 99 08/24/23 02:15 110/66 08/24/23 02:00 122/68 08/24/23 02:00 36.4 C L 59 L 18 98 08/24/23 01:45 116/71 08/24/23 01:45 36.5 C 62 18 99 08/24/23 01:30 119/70 08/24/23 01:30 36.6 C 64 18 99 08/24/23 01:15 117/72 08/24/23 01:15 37.0 C 61 18 98 08/24/23 01:00 37.1 C 67 18 98 08/24/23 01:00 114/65 08/24/23 00:45 112/68 08/24/23 00:45 37.2 C 71 18 98 Laboratory Results 08/24/23 02:12 08/24/23 02:12 PG Care Time/CCT Total # of Minutes Spent Total Time Spent with Patient: Total time spent is greater than 50% in coordination of care (as documented) at patient's floor/unit and/or counseling patient: Coding Level of Care Code 04603 SUB INP/OBS CARE 3/50MIN Diagnoses Cardiac arrest I46.9 Sepsis with acute organ dysfunction and septic shock A41.9; R65.21 Respiratory failure J96.00 Chronicity: acute Respiratory failure complication: unspecified whether with hypoxia or hypercapnia Aspiration pneumonia of both lower lobes J69.0 Chronic anticoagulation Z79.01 Uncontrolled diabetes mellitus with hyperglycemia E11.65 History of stroke Z86.73 Hypertension I10 (3) Respiratory failure Chronicity: acute Respiratory failure complication: unspecified whether with hypoxia or hypercapnia Qualified Code(s): J96.00 - Acute respiratory failure, unspecified whether with hypoxia or hypercapnia
--- NOTE | 2023-08-24 16:19 | XCELERA ---
[id number]
--- NOTE | 2023-08-24 16:47 | Electrocardiogram Report ---
Test Reason : Blood Pressure : / mmHG Vent. Rate : 073 BPM Atrial Rate : 073 BPM P-R Int : 232 ms QRS Dur : 160 ms QT Int : 500 ms P-R-T Axes : 026 -60 -17 degrees QTc Int : 550 ms Sinus rhythm with 1st degree A-V block with Premature atrial complexes Right bundle branch block Left anterior fascicular block Bifascicular block Poor R wave progression, consider anterior FL vs. lead placement vs. LVH Abnormal ECG Confirmed by Charlie Thomson ([id number]) on 08/24/2023 4:46:55 PM Referred By: REFERRED SELF Confirmed By:Anton Thomson
[2023-08-24] MEDS: DEXTROSE 50% 50 ML SYRINGE IV PRN (19:24)
[2023-08-24 23:31] LABS: A calco-baum cmplx NotReported Not Detected (NotDetected); Bact fragilis Not Reported Not Detected (NotDetected); Blood Culture Id Panel PCR Panel Negative (NotDetected); C auris Not Reported Not Detected (NotDetected); Calbicans Not Reported Not Detected (NotDetected); Candida glabrata Not Reported Not Detected (NotDetected); Candida krusei Not Reported Not Detected (NotDetected); Cneoformans/gatti Not Reported Not Detected (NotDetected); Cparapsilosis Not Reported Not Detected (NotDetected); E cloacae compx Not Reported Not Detected (NotDetected); Efaecalis Not Reported Not Detected (NotDetected); Efaecium Not Reported Not Detected (NotDetected); Enterobacterales Not Reported Not Detected (NotDetected); Escherichia coli Not Reported Not Detected (NotDetected); H influenzae Not Reported Not Detected (NotDetected); K aerogenes Not Reported Not Detected (NotDetected); Koxytoca Not Reported Not Detected (NotDetected); Kpneumoniae grp Not Reported Not Detected (NotDetected); Lmonocyt Not Reported Not Detected (NotDetected); N meningitidis Not Reported Not Detected (NotDetected); P aeruginosa Not Reported Not Detected (NotDetected); Proteus spp Not Reported Not Detected (NotDetected); Salmonella spp Not Reported Not Detected (NotDetected); Smarcescens Not Reported Not Detected (NotDetected); Staph lugdunensis Not Reported Not Detected (NotDetected); Staph spp. Not Reported Not Detected (NotDetected); Staphaureus Not Reported Not Detected (NotDetected); Staphepi Not Reported Not Detected (NotDetected); Stenmaltophilia Not Reported Not Detected (NotDetected); Strep agal(GrpB) Not Reported Not Detected (NotDetected); Strep pneum Not Reported Not Detected (NotDetected); Strep pyog (GrpA) Not Reported Not Detected (NotDetected); Strep spp Not Reported Not Detected (NotDetected)
[2023-08-25 04:23] LABS: iSTAT Allen Test Pass; iSTAT Art Bld Gas pCO2 Correct 31 mmHg (35-46); iSTAT Art Bld Gas pH Corrected 7.527 (7.35-7.45); iSTAT Arterial Blood Gas HCO3 26 meg/L (19-24); iSTAT Arterial Blood Gas pCO2 31 mmHg (35-46); iSTAT Arterial Blood Gas pH 7.52 (7.35-7.45); iSTAT Arterial Blood Gas pO2 56 mmHg (80-95); iSTAT Arterial Blood Gas pO2 C 54; iSTAT Carbon Dioxide 27 mmol/L (24-31); iSTAT FiO2 50 %; iSTAT Hematocrit 36 % (42-52); iSTAT Hemoglobin 12.2 g/dl (14.0-18.0); iSTAT Potassium 2.9 mmol/L (3.3-5.0); iSTAT Site L Radial; iSTAT Sodium 140 mmol/L (135-144)
[2023-08-25 05:17] LABS: Hematocrit (blood only) 39.7 % (42.0-52.0); Hemoglobin 13.6 g/dl (14.0-18.0); Mean Corpuscular Hemoglobin 26.4 pg (25.0-34.0); Mean Corpuscular Hgb Conc 34.3 g/dL (32.0-36.0); Mean Corpuscular Volume 77.1 fL (80.0-100.0); Mean Platelet Volume 11.1 fL (9.4-12.4); Platelet Count 178 K/uL (130-400); RDW Coefficient of Variation 14.1 % (11.5-14.5); RDW Standard Deviation 39.6 fL (36.4-46.3); Red Blood Count 5.15 M/uL (4.70-6.10); White Blood Count 22.72 K/ul (4.8-10.8)
[2023-08-25 05:38] LABS: Partial Thromboplastin Ratio 1.8; Partial Thromboplastin Time 51 Seconds (21-31); Prothrombin Time 49.4 Seconds (9.0-12.0)
[2023-08-25 05:40] LABS: Albumin Globulin Ratio 0.7 (0.9-2); Albumin Level 2.5 gm/dl (3.4-5.0); BUN Creatinine Ratio 24.1 (10-20); Calcium 8.2 mg/dl (8.6-10.3); Creatinine Clr Calc Pharmacy 63.3 ml/min; Est GFR (African American) 55.1 ml/min; Est GFR (Non-African American) 47.5 ml/min; Globulin 3.4 gm/dl (2.5-4.0); Magnesium 1.8 mg/dl (1.7-2.4); Phosphorus 2.8 mg/dl (2.5-4.9); Potassium 3.1 mmol/L (3.5-5.1); Total Protein 5.9 gm/dl (6.0-8.3)
[2023-08-25 06:17] LABS: Basophils # (auto) 0.05 K/uL (0.00-0.20); Basophils % (auto) 0.2 %; Immature Granulocytes # (auto) 0.72 K/uL (0.01-0.20); Immature Granulocytes % (auto) 3.2 %; Lymphocytes # (auto) 0.83 K/uL (1.20-3.40); Lymphocytes % (auto) 3.7 %; Monocytes # (auto) 1.03 K/uL (0.11-0.59); Monocytes % (auto) 4.5 %; Neutrophils # (auto) 20.09 K/uL (1.40-6.50); Neutrophils % (auto) 88.4 %
[2023-08-25] MEDS: MAGNESIUM SULFATE / D5W 1 GM/100 ML BAG IV SCH (07:52)
[2023-08-25] MEDS: POTASSIUM CHLORIDE / WTR 20 MEQ/100 ML PLCT IV SCH (07:52)
--- NOTE | 2023-08-25 08:04 | Critical Care Progress Note ---
Date of Service August 25, 2023 Assessment & Plan (1) Septic shock: (2) Respiratory failure: (3) Cardiac arrest: (4) Uncontrolled diabetes mellitus with hyperglycemia: (5) History of stroke: (6) Chronic anticoagulation: (7) Sepsis with acute organ dysfunction and septic shock: Plan Impression:: 57-year-old male with severe sepsis with septic shock secondary to Proteus UTI/bacteremia with prior history of stroke admitted with out of hospital cardiac arrest- PEA on arrival likely secondary to respiratory arrest secondary to metabolic encephalopathy and septic shock 24-hour events: Patient weaned off of all pressor agents. Vent settings are decreasing. Chest x-ray this morning demonstrated a left-sided effusion confirmed on ultrasound. Deferring thoracentesis given his elevated INR. Recommendations Neuro -[id number] PEA arrest with unknown downtime however neurologically the patient appears to have responded favorably without significant sequelae. He does have a prior stroke with significant neurological sequelae with paresis of the left upper and lower extremities. No indication for advanced imaging at this point in time. Will follow clinically. Will need PT and OT once extubated. Off all sedation Cardiac -PEA arrest due to severe septic shock and metabolic disarray. Pressor requirement resolved. Down to a minimal amount of norepinephrine currently. Echo reviewed. Poor acoustic windows but EF appeared relatively preserved. Try and get outside records regarding the patient's complex cardiovascular history. Start diuretics Respiratory -CT reviewed. No evidence of pneumonia. Bedside ultrasound did demonstrate a moderate-sized left effusion. Would consider thoracentesis however the patient's INR of 5 would preclude. His Coumadin is been held. I do not think this requires urgent intervention so we will defer IV reversal agents and allow to drift down. Will place on SBT and assess for ventilator liberation later today if the patient develops hemodynamic instability, persistent fevers, or is unable to be liberated from the ventilator, will reverse Coumadin and proceed with pleural drainage. GI -elevated LFTs likely due to hypoperfusion. Trending down. Will assess swallowing function once extubated RENAL/LYTES -acute kidney injury. Creatinine improved today. Will initiate ICU electrolyte replacement protocol. Urine output adequate. -urosepsis with Proteus in urine and blood. Continue Davis catheter for now ENDO - continue insulin infusion per ICU protocol. And steroids for relative adrenal insufficiency. Continue for now with plans to wean next 3 to 4 days HEME -marked leukocytosis secondary to infection. Continue to trend. No other acute issues ID -severe sepsis. Proteus in urine and blood likely offending agent. Sensitivities still pending. Day #3/ cefepime. Suspect the coag negative staph is a contaminant however will await finalization of blood cultures prior to discontinuation of vancomycin LINES/IV ACCESS - PIV, CVL, ETT, OGT, Continue use of these lines DVT PROPHYLAXIS -therapeutically anticoagulated on Coumadin. DISPO: ICU while intubated and sedated as well as requiring vasopressor support. Admission and Anticipated Discharge Date Admission Date: August 23, 2023 Subjective Patient seen and examined. EMR reviewed. Discussed with bedside critical care nurse and respiratory therapy as well as on multidisciplinary rounds. Patient remains intubated. He is off sedation. He is able to follow commands. He is off all pressors. Review of Systems Review of Systems: Unobtainable due to endotracheal tube Physical Exam Constitutional: WD/WN, vitals as above + mechanically ventilated Neck: trachea midline, no thyromegaly Respiratory: normal respiratory effort, lungs clear to auscultation Cardiovascular: RRR, no murmur, no edema Gastrointestinal (Abdomen): normal bowel sounds, soft, nontender, no hepatosplenomegaly Musculoskeletal: Extremities: extremities normal to inspection Skin: no rashes, warm and dry Lymphatic: no cervical lymphadenopathy Results & Data Results & Data Vital Signs (Past 12 Hours) Vital Signs Temp Pulse Resp BP Pulse Ox Pulse Ox O2 Del Method 08/25/23 07:30 60 16 93 08/25/23 06:30 114/76 08/25/23 06:30 36.1 C L 83 15 92 Mechanical Vent 08/25/23 06:15 112/75 08/25/23 06:15 36.4 C L 88 18 91 Mechanical Vent 08/25/23 06:00 110/70 08/25/23 06:00 36.4 C L 77 14 93 08/25/23 05:00 36.8 C 82 16 08/25/23 05:00 109/71 08/25/23 04:24 14 08/25/23 04:06 83 19 92 08/25/23 04:00 36.6 C 80 18 91 08/25/23 04:00 114/74 08/25/23 04:00 08/25/23 03:00 113/70 08/25/23 03:00 36.8 C 77 18 92 08/25/23 02:00 108/70 08/25/23 02:00 36.8 C 74 18 08/25/23 01:00 36.7 C 69 18 90 08/25/23 01:00 105/75 08/25/23 00:00 68 08/25/23 00:00 117/78 08/25/23 00:00 36.7 C 72 15 95 08/25/23 00:00 08/24/23 23:09 18 08/24/23 23:00 106/69 08/24/23 23:00 36.8 C 82 2 L 95 08/24/23 22:12 95 08/24/23 22:00 73 19 96 08/24/23 22:00 106/67 08/24/23 21:00 111/72 08/24/23 21:00 36.7 C 74 18 94 O2 Del Method FiO2 08/25/23 07:30 50 08/25/23 06:30 08/25/23 06:30 08/25/23 06:15 08/25/23 06:15 08/25/23 06:00 08/25/23 06:00 08/25/23 05:00 08/25/23 05:00 08/25/23 04:24 08/25/23 04:06 50 08/25/23 04:00 08/25/23 04:00 08/25/23 04:00 50 08/25/23 03:00 08/25/23 03:00 08/25/23 02:00 08/25/23 02:00 08/25/23 01:00 08/25/23 01:00 08/25/23 00:00 08/25/23 00:00 08/25/23 00:00 08/25/23 00:00 50 08/24/23 23:09 50 08/24/23 23:00 08/24/23 23:00 08/24/23 22:12 Mechanical Vent 08/24/23 22:00 08/24/23 22:00 08/24/23 21:00 08/24/23 21:00 Diagnostic Findings Echocardiogram performed yesterday was technically limited. Left ventricular systolic function was normal. Right ventricular systolic function reduced with right ventricle showing moderate dilatation. EF of 50 to 55%. Poorly visualized heart valves and limited study Critical Care Results & Data Vital Signs (Past 12 Hours) Vital Signs Temp Pulse Resp BP Pulse Ox Pulse Ox O2 Del Method 08/25/23 07:30 60 16 93 08/25/23 06:30 114/76 08/25/23 06:30 36.1 C L 83 15 92 Mechanical Vent 08/25/23 06:15 112/75 08/25/23 06:15 36.4 C L 88 18 91 Mechanical Vent 08/25/23 06:00 110/70 08/25/23 06:00 36.4 C L 77 14 93 08/25/23 05:00 36.8 C 82 16 08/25/23 05:00 109/71 08/25/23 04:24 14 08/25/23 04:06 83 19 92 08/25/23 04:00 36.6 C 80 18 91 08/25/23 04:00 114/74 08/25/23 04:00 08/25/23 03:00 113/70 08/25/23 03:00 36.8 C 77 18 92 08/25/23 02:00 108/70 08/25/23 02:00 36.8 C 74 18 08/25/23 01:00 36.7 C 69 18 90 08/25/23 01:00 105/75 08/25/23 00:00 68 08/25/23 00:00 117/78 08/25/23 00:00 36.7 C 72 15 95 08/25/23 00:00 08/24/23 23:09 18 08/24/23 23:00 106/69 08/24/23 23:00 36.8 C 82 2 L 95 08/24/23 22:12 95 08/24/23 22:00 73 19 96 08/24/23 22:00 106/67 08/24/23 21:00 111/72 08/24/23 21:00 36.7 C 74 18 94 O2 Del Method FiO2 08/25/23 07:30 50 08/25/23 06:30 08/25/23 06:30 08/25/23 06:15 08/25/23 06:15 08/25/23 06:00 08/25/23 06:00 08/25/23 05:00 08/25/23 05:00 08/25/23 04:24 08/25/23 04:06 50 08/25/23 04:00 08/25/23 04:00 08/25/23 04:00 50 08/25/23 03:00 08/25/23 03:00 08/25/23 02:00 08/25/23 02:00 08/25/23 01:00 08/25/23 01:00 08/25/23 00:00 08/25/23 00:00 08/25/23 00:00 08/25/23 00:00 50 08/24/23 23:09 50 08/24/23 23:00 08/24/23 23:00 08/24/23 22:12 Mechanical Vent 08/24/23 22:00 08/24/23 22:00 08/24/23 21:00 08/24/23 21:00 Lab & Micro Results (Past 24 Hours) RBC 5.15 M/uL (4.70-6.10) 08/25/23 WBC 22.72 K/ul (4.8-10.8) H 08/25/23 Hgb 13.6 g/dl (14.0-18.0) L 08/25/23 Hct 39.7 % (42.0-52.0) L 08/25/23 MCV 77.1 fL (80.0-100.0) L 08/25/23 MCH 26.4 pg (25.0-34.0) 08/25/23 MCHC 34.3 g/dL (32.0-36.0) 08/25/23 RDW Standard Deviation 39.6 fL (36.4-46.3) 08/25/23 RDW Coefficient of Variation 14.1 % (11.5-14.5) 08/25/23 Plt Count 178 K/uL (130-400) 08/25/23 MPV 11.1 fL (9.4-12.4) 08/25/23 Neutrophils (%) (Auto) 88.4 % 08/25/23 Lymphocytes (%) (Auto) 3.7 % 08/25/23 Monocytes # (Auto) 1.03 K/uL (0.11-0.59) H 08/25/23 Eosinophils # (Auto) 0.00 K/uL (0.00-0.50) 08/25/23 Immature Granulocyte % (Auto) 3.2 % 08/25/23 Neutrophils # (Auto) 20.09 K/uL (1.40-6.50) H 08/25/23 Lymphocytes # (Auto) 0.83 K/uL (1.20-3.40) L 08/25/23 Monocytes # (Auto) 1.03 K/uL (0.11-0.59) H 08/25/23 Eosinophils # (Auto) 0.00 K/uL (0.00-0.50) 08/25/23 Basophils # (Auto) 0.05 K/uL (0.00-0.20) 08/25/23 Immature Granulocyte # (Auto) 0.72 K/uL (0.01-0.20) H 08/24 Na 139 mmol/L (136-145) 08/25/23 K 3.1 mmol/L (3.5-5.1) L 08/25/23 Cl 104 mmol/L (98-107) 08/25/23 CO2 26 mmol/L (21-32) 08/25/23 Anion Gap 9 (3-11) 08/25/23 BUN 38 mg/dl (6-23) H 08/25/23 Creatinine 1.58 mg/dl (0.6-1.4) H 08/25/23 Estimated GFR ( Amer) 55.1 ml/min 08/25/23 Estimated GFR (Non-Af Amer) 47.5 ml/min 08/25/23 BUN/Creatinine Ratio 24.1 (10-20) H 08/25/23 Glu 141 mg/dl (70-99(Fasting)) H 08/25/23 Ca 8.2 mg/dl (8.6-10.3) L 08/25/23 Phosphorus Level 2.8 mg/dl (2.5-4.9) 08/25/23 Total Bilirubin 1.0 mg/dl (0.2-1.0) 08/25/23 AST 90 U/L (13-39) H 08/25/23 ALT 109 U/L (7-52) H 08/25/23 Alkaline Phosphatase 151 U/L (34-104) H 08/25/23 TP 5.9 gm/dl (6.0-8.3) L 08/25/23 Albumin 2.5 gm/dl (3.4-5.0) L 08/25/23 Globulin 3.4 gm/dl (2.5-4.0) 08/25/23 Albumin/Globulin Ratio 0.7 (0.9-2) L 08/25/23 Mg 1.8 mg/dl (1.7-2.4) 08/25/23 04:39 Calcium Level 8.2 mg/dl (8.6-10.3) L 08/25/23 04:39 Prothromb Time International Ratio 5.0 (0.9-1.1) H 08/25/23 04 :39 Lawrence Test Pass 08/25/23 04:06 Microbiology 08/23/23 19:08 Aerobic Blood Culture - Preliminary Blood Gram positive cocci in chains Anaerobic Blood Culture - Final 08/23/23 19:16 Urine Culture - Preliminary Urine,Clean Catch Proteus species 08/23/23 19:08 Aerobic Blood Culture - Preliminary Blood Gram negative bacilli Anaerobic Blood Culture - Preliminary Gram negative bacilli Gram positive cocci clusters I & O Totals 24 Hours 08/24/23 08/25/23 08/26/23 06:59 06:59 06:59 Intake Total 6285.607 / 6285.607 4969.546 / 4969.546 Output Total 865 / 865 2895 / 2895 Balance 5420.607 / 5420.607 2074.546 / 2074.546 Cumulative 08/23/23 18:33 thru 08/25/23 06:38 Intake Total 80291.153 Output Total 3760 Balance 7495.153 RT Ventilator Mngmt (Last Documented) Ventilator Ordered Settings Ventilator Support Mode Assist Control 08/25/23 07:30 Respiratory Rate 16 08/25/23 07:30 Ventilator Tidal Volume 450 08/25/23 07:30 Setting Minute Ventilation 7.1 08/25/23 07:30 Positive End Expiratory 5 08/25/23 07:30 Pressure Fraction of Inspired Oxygen 50 08/25/23 07:30 Ventilator - PT Measurements Respiratory Rate 16 Exhaled Tidal Volume 449 Minute Ventilation 7.1 Peak Inspiratory Airway 20 Pressure Plateau Pressure 17 Respiratory Cycle Inspiratory: 1:2.4 Expiratory Ratio Inspiratory Phase Time 1.0 End-Tidal CO2 30 Static Lung Compliance 37.42 Dynamic Lung Compliance 29.93 Normal Static Lung Compliance 47.00 Coding Level of Care Code 49509 SUB INP/OBS CARE 3/50MIN Diagnoses Septic shock A41.9; R65.21 Respiratory failure J96.00 Chronicity: acute Respiratory failure complication: unspecified whether with hypoxia or hypercapnia Cardiac arrest I46.9 Uncontrolled diabetes mellitus with hyperglycemia E11.65 History of stroke Z86.73 Chronic anticoagulation Z79.01 Sepsis with acute organ dysfunction and septic shock A41.9; R65.21 (2) Respiratory failure Chronicity: acute Respiratory failure complication: unspecified whether with hypoxia or hypercapnia Qualified Code(s): J96.00 - Acute respiratory failure, unspecified whether with hypoxia or hypercapnia
[2023-08-25] MEDS: VANCOMYCIN HCL 1,500 MG in SODIUM CHLORIDE 0.9% 500 ML IV SCH (08:05)
[2023-08-25] MEDS: FUROSEMIDE INJ 20 MG/2 ML VIAL IV SCH (08:47)
--- NOTE | 2023-08-25 09:04 | XRay Report ---
SINGLE VIEW CHEST CLINICAL HISTORY: Respiratory failure. FINDINGS: An AP, portable, semierect chest radiograph is compared to study dated 08/24/2023 and correl ated with chest CT dated 08/23/2023. The examination is degraded by portable technique and patient rot ation. Endotracheal and enteric tubes are unchanged in position. The patient is status post midline s ternotomy and cardiac valve surgery. The heart is enlarged. There is pulmonary vascular congestion. T here are left larger than right pleural effusions with left basilar consolidation. There is apparent increase in opacification of the left upper lung. No pneumothorax is seen. The skeletal structures ar e osteopenic. The bony thorax is grossly intact. IMPRESSION: 1. Stable lines and tubes. 2. Cardiomegaly with evidence of congestive failure. 3. Left larger than right pleural effusions with left basilar consolidation. 4. Apparent increasing opacities within the left upper lung may be related to patient rotation. Atten tion at follow-up is recommended.. ACT 112: Negative or not required by law. Electronically signed by: Efrain Quach M.D. 08/25/2023 9:02 AM
[2023-08-25] MEDS ORDERED: LANTUS PER UNIT CHARGE SC ONE (10:15)
[2023-08-25] MEDS: LANTUS PER UNIT CHARGE SC ONE (10:29)
--- NOTE | 2023-08-25 11:24 | Hospitalist Progress Note ---
Date of Service August 25, 2023 Assessment & Plan (1) Cardiac arrest: Plan: Outside of the hospital. The patient was found down and resuscitation efforts were successful. Echo negative for regional wall motion abnormalities. Normal ejection fraction. Continue telemetry. Cardiology consultation requested. Troponin levels are elevated but no evidence of acute coronary syndrome on EKG. Treated with a heparin drip (2) Sepsis with acute organ dysfunction and septic shock: Plan: Possible septic shock present on admission. Final culture results are pending. Currently on linezolid and meropenem, day 3 (3) Respiratory failure: Plan: Acute hypoxic respiratory failure. He was extubated this morning, August 24. He is currently on oxygen at night 6 L/min. (4) Aspiration pneumonia of both lower lobes: Plan: Suspected aspiration pneumonia in both lower lobes. Currently on linezolid and meropenem, day 3. Serial chest x-ray (5) Chronic anticoagulation: Plan: With Coumadin. Currently on a heparin drip. INR has risen to 5.0. Will monitor daily. He may require intravenous vitamin K. No overt bleeding however. (6) Uncontrolled diabetes mellitus with hyperglycemia: Plan: Type 2 diabetes. Currently on sliding scale coverage and basal insulin therapy. 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 Blood pressure stable. Plan To be determined. 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 Cardiology and general surgery consults ordered and pending Admission and Anticipated Discharge Date Admission Date: August 23, 2023 Subjective The patient is awake and alert. He was extubated this morning, August 24 and is now on nasal cannula at 6 L/min. INR has risen to 5.0. If this rises further, he will need a dose of intravenous vitamin K. Creatinine improved to 1.5. Potassium was 3.1 this morning and will be treated. Glucose 141. Cardiology consultation requested. General surgery consult also requested to evaluate his sacral decubitus. Wound care is already involved. He remains on linezolid and meropenem. Review of Systems 2 Review of Systems: Constitutional-no fever or chills ENT-no blurred vision, no double vision, no epistaxis, no sore throat Respiratory-no cough, no wheezing, no shortness of breath Cardiac-no palpitations, no chest pain, no syncope GI-no nausea, vomiting, diarrhea, melena, hematochezia -no urinary retention, no urinary incontinence, no dysuria, no hematuria Musculoskeletal-no joint pain, no muscle tenderness Skin-no bruising, no rashes, no pruritus Neuro-no isolated weakness, no paresthesia, no weakness Psych-no depression, no anxiety Physical Exam 2 Physical Exam: General-awake and alert. Responsive. No fever HEENT-head atraumatic and normocephalic, pupils equal and reactive to light, extraocular muscles intact Neck-no lymphadenopathy or thyromegaly, trachea midline Chest-diminished breath sounds bilaterally with scattered rhonchi. No wheezing Cardiac-regular rate and rhythm, normal S1 and S2 Abdomen-normal bowel sounds, nontender, no hepatosplenomegaly Extremities-no cyanosis, clubbing, or edema Neuro-chronic left hemiparesis from old CVA. No apparent cranial nerve deficits Psych-flat affect but he was just extubated Results & Data Results & Data Vital Signs (Past 12 Hours) Vital Signs Temp Pulse Resp BP Pulse Ox O2 Del Method O2 Flow Rate 08/25/23 09:30 Oxymask 6 08/25/23 08:00 08/25/23 08:00 80 08/25/23 07:45 35.6 C L 85 16 94 Mechanical Vent 08/25/23 07:45 118/79 08/25/23 07:30 114/74 08/25/23 07:30 36.4 C L 87 17 93 Mechanical Vent 08/25/23 07:30 08/25/23 07:30 60 16 93 08/25/23 07:15 117/83 08/25/23 07:15 35.9 C L 71 14 95 Mechanical Vent 08/25/23 07:00 113/80 08/25/23 07:00 35.9 C L 74 15 08/25/23 06:30 114/76 08/25/23 06:30 36.1 C L 83 15 92 Mechanical Vent 08/25/23 06:15 112/75 08/25/23 06:15 36.4 C L 88 18 91 Mechanical Vent 08/25/23 06:00 110/70 08/25/23 06:00 36.4 C L 77 14 93 08/25/23 05:00 36.8 C 82 16 08/25/23 05:00 109/71 08/25/23 04:24 14 08/25/23 04:06 83 19 92 08/25/23 04:00 36.6 C 80 18 91 08/25/23 04:00 114/74 08/25/23 04:00 08/25/23 03:00 113/70 08/25/23 03:00 36.8 C 77 18 92 08/25/23 02:00 108/70 08/25/23 02:00 36.8 C 74 18 08/25/23 01:00 36.7 C 69 18 90 08/25/23 01:00 105/75 08/25/23 00:00 68 08/25/23 00:00 117/78 08/25/23 00:00 36.7 C 72 15 95 08/25/23 00:00 FiO2 08/25/23 09:30 08/25/23 08:00 50 08/25/23 08:00 08/25/23 07:45 08/25/23 07:45 08/25/23 07:30 08/25/23 07:30 08/25/23 07:30 50 08/25/23 07:30 50 08/25/23 07:15 08/25/23 07:15 08/25/23 07:00 08/25/23 07:00 08/25/23 06:30 08/25/23 06:30 08/25/23 06:15 08/25/23 06:15 08/25/23 06:00 08/25/23 06:00 08/25/23 05:00 08/25/23 05:00 08/25/23 04:24 08/25/23 04:06 50 08/25/23 04:00 08/25/23 04:00 08/25/23 04:00 50 08/25/23 03:00 08/25/23 03:00 08/25/23 02:00 08/25/23 02:00 08/25/23 01:00 08/25/23 01:00 08/25/23 00:00 08/25/23 00:00 08/25/23 00:00 08/25/23 00:00 50 Laboratory Results 08/25/23 04:39 08/25/23 04:39 PG Care Time/CCT Total # of Minutes Spent Total Time Spent with Patient: Total time spent is greater than 50% in coordination of care (as documented) at patient's floor/unit and/or counseling patient: Coding Level of Care Code 00209 SUB INP/OBS CARE 3/50MIN Diagnoses Cardiac arrest I46.9 Sepsis with acute organ dysfunction and septic shock A41.9; R65.21 Respiratory failure J96.00 Chronicity: acute Respiratory failure complication: unspecified whether with hypoxia or hypercapnia Aspiration pneumonia of both lower lobes J69.0 Chronic anticoagulation Z79.01 Uncontrolled diabetes mellitus with hyperglycemia E11.65 History of stroke Z86.73 Hypertension I10 (3) Respiratory failure Chronicity: acute Respiratory failure complication: unspecified whether with hypoxia or hypercapnia Qualified Code(s): J96.00 - Acute respiratory failure, unspecified whether with hypoxia or hypercapnia
[2023-08-25] MEDS: INSULIN ASPART PER UNIT CHARGE SC SCH (11:33)
[2023-08-25] MEDS: cefTRIAXone SODIUM 2,000 MG in DEXTROSE 5 % MINI-B 50 ML IV SCH (11:33)
--- NOTE | 2023-08-25 11:41 | Surgery Consultation ---
Date of Consultation August 25, 2023 Assessment & Plan (1) Sacral wound: This is a 57yM with a PMH of HTN, GERD, HLD, h/o stroke, on coumadin who presents to the [facility] ED on 08/23/23 after being found unresponsive by his . EMS was called and he came into the ER requiring CPR for PEA and intubation. ROSC was achieved. He has been in the ICU for his critical status. We have been consulted today to evaluate a wound of the patient's buttocks. Patient extubated today and able to answer questions. He is unaware of his buttocks wound. He denies any pain of the area or issues. He currently denies any CP/SOB, abdominal pain, fevers. He is apparently wheel chair bound and uses desire lift at home. History of old stroke. -Today labs show WBC 22, Hbg 13.6,INR elevated at 5, K 3.1, Cr 1.5. Patient was extubated this AM and currently oxygenating well on oxymask. HR and BP stable, not requiring any pressors at this time. On exam he has a wound noted in his sacral region that is tender, with a small amount of bloody drainage,with the overlying skin + deep purple/dark color almost similar to bruising/ecchymosis which currently seems fairly superficial. Wound care has evaluated the patient yesterday and an optifoam is in place. Currently patient being managed for pneumonia, recent PEA requiring CPR, bacteremia, UTI, with elevated INR. His wound appears to be in evolving stages. There is nothing at this time that requires surgical debridement. Recommend using santyl and covering with optifoam daily. Offloading will be important to prevent further tissue damage as well as nutrition. Patient seen/examined with Dr. Aldana. Supervising Physician Co-Signing Physician Notes As per Sonja Wakefield physician application assistant Will try mechanical debridement very superficial eschar likely pressure ulceration stage II of recent onset History of Present Illness Attending Physician: Jaspal Moulton MD History of Present Illness This is a 57yM with a PMH of HTN, GERD, HLD, h/o stroke, on coumadin who presents to the [facility] ED on 08/23/23 after being found unresponsive by his . EMS was called and he came into the ER requiring CPR for PEA and intubation. ROSC was achieved. He has been in the ICU for his critical status. We have been consulted today to evaluate a wound of the patient's buttocks. Patient extubated today and able to answer questions. He is unaware of his buttocks wound. He is apparently wheel chair bound. Has history of old stroke. He denies any pain of the buttocks area or issues. He currently denies any CP/SOB, abdominal pain, fevers. He takes coumadin at home for cardiac issues. Allergies Allergy/AdvReac Type Severity Reaction Status Date / Time bee venom protein (honey bee) Allergy Unknown Verified 08/23/23 20:23 Iodinated Contrast Media Allergy Hives Verified 08/23/23 20:23 Penicillins Allergy Hives Verified 08/23/23 20:23 Home Medications Medication Instructions Recorded Confirmed Type allopurinol 100 mg tablet 100 mg PO QAM 08/23/23 08/23/23 History amlodipine 10 mg tablet 10 mg PO QAM 08/23/23 08/23/23 History aspirin 81 mg chewable tablet 81 mg PO DAILY 08/23/23 08/23/23 History (Aspirin Childrens) atorvastatin 10 mg tablet 10 mg PO HS 08/23/23 08/23/23 History carvedilol 25 mg tablet 25 mg PO BID 08/23/23 08/23/23 History clonidine HCl 0.2 mg tablet 0.2 mg PO TID 08/23/23 08/23/23 History famotidine 40 mg tablet 40 mg PO DAILYBB 08/23/23 08/23/23 History furosemide 40 mg tablet 20 mg PO Q OTHER DAY 08/23/23 08/23/23 History gabapentin 300 mg capsule 300 mg PO TID 08/23/23 08/23/23 History montelukast 10 mg tablet 10 mg PO DAILY 08/23/23 08/23/23 History pregabalin 150 mg capsule 150 mg PO BID 08/23/23 08/23/23 History tamsulosin 0.4 mg capsule 0.4 mg PO QAM 08/23/23 08/23/23 History warfarin 1 mg tablet 1 mg PO DAILY 08/23/23 08/23/23 History warfarin 5 mg tablet 5 mg PO DAILY 08/23/23 08/23/23 History Patient History Medical History GERD (gastroesophageal reflux disease) Hyperlipidemia Peripheral neuropathy Gout Hypertension BPH w urinary obs/LUTS Chronic anticoagulation History of stroke Social History Smoking Status: Never smoker Tobacco Type: Smokeless Tobacco (Dip or Chew) Second Hand Exposure: No; Do You Dip or Chew Tobacco: Yes; Tobacco Cessation Education Requested by Patient: No Hx Alcohol Use: No Hx Substance Use: No Preferred Language: Polish Communication Ability: Unable Software Development Coordinator Required: No Beliefs That Will Affect Care: None Current Living Situation: Spouse Other Information That Helps Us Care for You: No Feels Safe at Home: Yes Safety Concerns: Feels Safe At This Time Assistive Devices: Mechanical Lift and Wheelchair Review of Systems Constitutional: no fever Respiratory: no dyspnea Cardiovascular: no chest pain Gastrointestinal: no abdominal pain Integumentary: unaware of buttock wound Physical Exam Physical Exam: awake, no distress. appears tired Respiratory: normal respiratory effort on oxymask Gastrointestinal (Abdomen): Percussion/Palpation: abdomen soft Skin: buttocks wound noted with small amount of bloody drainage, tender, + deep purple/dark bruising apparent, superficial Results & Data Vital Signs (Past 12 Hours) Vital Signs Temp Pulse Resp BP Pulse Ox O2 Del Method O2 Flow Rate 08/25/23 09:30 Oxymask 6 08/25/23 08:00 08/25/23 08:00 80 08/25/23 07:45 96.1 F L 85 16 94 Mechanical Vent 08/25/23 07:45 118/79 08/25/23 07:30 114/74 08/25/23 07:30 97.5 F L 87 17 93 Mechanical Vent 08/25/23 07:30 08/25/23 07:30 60 16 93 08/25/23 07:15 117/83 08/25/23 07:15 96.6 F L 71 14 95 Mechanical Vent 08/25/23 07:00 113/80 08/25/23 07:00 96.6 F L 74 15 08/25/23 06:30 114/76 08/25/23 06:30 97.0 F L 83 15 92 Mechanical Vent 08/25/23 06:15 112/75 08/25/23 06:15 97.5 F L 88 18 91 Mechanical Vent 08/25/23 06:00 110/70 08/25/23 06:00 97.5 F L 77 14 93 08/25/23 05:00 98.2 F 82 16 08/25/23 05:00 109/71 08/25/23 04:24 14 08/25/23 04:06 83 19 92 08/25/23 04:00 97.9 F 80 18 91 08/25/23 04:00 114/74 08/25/23 04:00 08/25/23 03:00 113/70 08/25/23 03:00 98.2 F 77 18 92 08/25/23 02:00 108/70 08/25/23 02:00 98.2 F 74 18 08/25/23 01:00 98.1 F 69 18 90 08/25/23 01:00 105/75 08/25/23 00:00 68 08/25/23 00:00 117/78 08/25/23 00:00 98.1 F 72 15 95 08/25/23 00:00 FiO2 08/25/23 09:30 08/25/23 08:00 50 08/25/23 08:00 08/25/23 07:45 08/25/23 07:45 08/25/23 07:30 08/25/23 07:30 08/25/23 07:30 50 08/25/23 07:30 50 08/25/23 07:15 08/25/23 07:15 08/25/23 07:00 08/25/23 07:00 08/25/23 06:30 08/25/23 06:30 08/25/23 06:15 08/25/23 06:15 08/25/23 06:00 08/25/23 06:00 08/25/23 05:00 08/25/23 05:00 08/25/23 04:24 08/25/23 04:06 50 08/25/23 04:00 08/25/23 04:00 08/25/23 04:00 50 08/25/23 03:00 08/25/23 03:00 08/25/23 02:00 08/25/23 02:00 08/25/23 01:00 08/25/23 01:00 08/25/23 00:00 08/25/23 00:00 08/25/23 00:00 08/25/23 00:00 50 Diagnostic Findings Exam(s): CT ABDOMEN + PELVIS Without Contrast EXAM: CT Abdomen and Pelvis Without Intravenous Contrast CLINICAL HISTORY: Reason for exam: AMS. TECHNIQUE: Axial computed tomography images of the abdomen and pelvis without intravenous contrast. CTDI is 32.8 [place] [address].529 mGy-cm. Automated exposure control was utilized for the study. A dose lowering technique was utilized adhering to the principles of ALARA. COMPARISON: No relevant prior studies available. FINDINGS: Lung bases: Unremarkable. No mass. No consolidation. ABDOMEN: Liver: Unremarkable. Gallbladder and bile ducts: Cholecystectomy. No ductal dilation. Pancreas: Unremarkable. No ductal dilation. Spleen: Unremarkable. No splenomegaly. Adrenals: Unremarkable. No mass. Kidneys and ureters: Nonobstructing stone in the LEFT renal pelvis measures 7 mm. Obstructing stone in the LEFT proximal ureter measures 6 mm. Mild hydronephrosis of the LEFT kidney impression. Stomach and bowel: Moderate fecal retention, correlate for constipation. No bowel obstruction. No free air. No mucosal thickening. PELVIS: Appendix: No findings to suggest acute appendicitis. Bladder: Severe wall thickening of the urinary bladder which measures up to 1.8 cm in thickness. Indwelling Davis catheter. Correlate for UTI. No stones. Reproductive: Unremarkable as visualized. ABDOMEN and PELVIS: Intraperitoneal space: See above. Bones/joints: No acute fracture. No dislocation. Soft tissues: Unremarkable. Vasculature: Vascular calcifications. Vascular calcifications are present. No abdominal aortic aneurysm. Lymph nodes: Unremarkable. No enlarged lymph nodes. Tubes, lines and devices: Feeding tube terminates in the stomach. IMPRESSION: 1. Severe wall thickening of the urinary bladder which measures up to 1. 8 cm in thickness. Indwelling Davis catheter. Correlate for UTI. 2. Feeding tube terminates in the stomach. 3. Cholecystectomy. 4. Moderate fecal retention, correlate for constipation. No bowel obstruction. No free air. Electronically signed by: Ayad Mari MD 08/23/23 19:58 PM PG Care Time/CCT Total # of Minutes Spent Total Time Spent with Patient: Total time spent is greater than 50% in coordination of care (as documented) at patient's floor/unit and/or counseling patient: Coding Level of Care Code 07025 INT INP/OBS CARE 1/40MIN Diagnoses Sacral wound S31.000A
[2023-08-25] MEDS ORDERED: CALCIUM CHLORIDE 10% 10 ML SYR IV ONE (12:20)
[2023-08-25] MEDS ORDERED: SODIUM BICARB 8.4% INJ 50 MEQ/50 ML SYR IV ONE (12:20)
--- NOTE | 2023-08-25 15:04 | Cardiology Consultation ---
Date of Consultation August 25, 2023 Assessment & Plan (1) Cardiac arrest: (2) History of aortic valve replacement with metallic valve: Plan 1. Cardiac arrest: This was reported to be a PEA arrest. I do not believe there was a primary cardiac etiology. The patient presented hypoxic, hypovolemic and hypotensive. Likely related to pulmonary infection that had progressed over several days. He did not require cardioversion or defibrillation. Overall LV function appears preserved on the echocardiogram obtained recently. Cardiac biomarkers murali slightly but certainly not indicative of an acute coronary syndrome. I do not think he requires further cardiac evaluation nor would he benefit from an ICD. 2. Elevated troponin: Very mild elevation given the presentation. Undoubtedly related to a period of hypoxia and hypotension. No reason to suspect an acute coronary syndrome. 3. Bicuspid aortic valve: Patient underwent operative replacement of the aortic valve in August 2011. 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 In the past appear to be some elevated gradient associated with the valve. He will require continued systemic anticoagulation. INR currently supratherapeutic. Warfarin should be restarted at the 1st opportunity. He likely does not require heparin bridging unless there is believed to be a long period subtherapeutic anticoagulation. History of Present Illness Reason for Consultation: PEA arrest Requesting Physician: Saige Attending Physician: Jaspal Moulton MD History of Present Illness The patient is a 49-year-old gentleman with a history of a bicuspid aortic valve, mechanical aortic valve replacement and ascending aortic replacement who was found unresponsive at home and presented to the hospital requiring resuscitation. According to the the patient was quite weak earlier this week and required feeding. Subsequently he seemed to improve but did develop a cough. The denied the presence of significant fevers or chills although the patient was noted to be warm immediately prior to presentation to the hospital. She found him unresponsive at home and summoned EMS. When the patient was brought to the hospital he was pulseless and required resuscitation with CPR and vasopressors. He required mechanical intubation. He was notably acidotic and hypoxic. He was subsequently discovered to have multi focal pneumonia. He was started on antibiotic therapy and underwent resuscitation with eventual weaning of pressor agents and extubation. The patient has little recollection or insight into what happened. He was not able to provide much meaningful history today. Most of the history was obtained with from a conversation with the patient's . It seems that he underwent his cardiac operation at [facility] in 2011. He obtained regular cardiology follow-up until approximately 2 years ago. At that time he had suffered a stroke involving the left side of his body. Not been ambulatory since that time. He is generally in a wheelchair, chair or bed at home. According to his he has not had follow-up in the cardiology clinic since that event as has been very difficult to transport him to appointments. Allergies Allergy/AdvReac Type Severity Reaction Status Date / Time bee venom protein (honey bee) Allergy Unknown Verified 08/23/23 20:23 Iodinated Contrast Media Allergy Hives Verified 08/23/23 20:23 Penicillins Allergy Hives Verified 08/23/23 20:23 Home Medications Medication Instructions Recorded Confirmed Type allopurinol 100 mg tablet 100 mg PO QAM 08/23/23 08/23/23 History amlodipine 10 mg tablet 10 mg PO QAM 08/23/23 08/23/23 History aspirin 81 mg chewable tablet 81 mg PO DAILY 08/23/23 08/23/23 History (Aspirin Childrens) atorvastatin 10 mg tablet 10 mg PO HS 08/23/23 08/23/23 History carvedilol 25 mg tablet 25 mg PO BID 08/23/23 08/23/23 History clonidine HCl 0.2 mg tablet 0.2 mg PO TID 08/23/23 08/23/23 History famotidine 40 mg tablet 40 mg PO DAILYBB 08/23/23 08/23/23 History furosemide 40 mg tablet 20 mg PO Q OTHER DAY 08/23/23 08/23/23 History gabapentin 300 mg capsule 300 mg PO TID 08/23/23 08/23/23 History montelukast 10 mg tablet 10 mg PO DAILY 08/23/23 08/23/23 History pregabalin 150 mg capsule 150 mg PO BID 08/23/23 08/23/23 History tamsulosin 0.4 mg capsule 0.4 mg PO QAM 08/23/23 08/23/23 History warfarin 1 mg tablet 1 mg PO DAILY 08/23/23 08/23/23 History warfarin 5 mg tablet 5 mg PO DAILY 08/23/23 08/23/23 History oxycodone 15 mg tablet 15 mg PO Q4 PRN Severe Pain (Scale 08/28/23 08/28/23 History Score 7-10) Patient History Medical History (Updated 08/28/23 @ 16:53 by Gely Rubi MD) Acute CVA (cerebrovascular accident) GERD (gastroesophageal reflux disease) Hyperlipidemia Peripheral neuropathy Gout Hypertension BPH w urinary obs/LUTS Chronic anticoagulation History of stroke Social History Smoking Status: Never smoker Tobacco Type: Smokeless Tobacco (Dip or Chew) Second Hand Exposure: No; Do You Dip or Chew Tobacco: Yes; Tobacco Cessation Education Requested by Patient: No Hx Alcohol Use: No Hx Substance Use: No Preferred Language: Maltese Communication Ability: Unable Sliding Joint Maker Required: No Beliefs That Will Affect Care: None Current Living Situation: Spouse Other Information That Helps Us Care for You: No Feels Safe at Home: Yes Safety Concerns: Feels Safe At This Time Assistive Devices: Mechanical Lift and Wheelchair Review of Systems Review of Systems: Per HPI. The patient did not report any breathing difficulty currently. Some mild chest discomfort. He did not recall fevers or chills recently. Minimal appetite at this time. He reported ambulating around his house without assistance. However, this was contradicted by his . Physical Exam Physical Exam: The patient is alert and answered questions appropriately although his answers appear to be inaccurate. Somewhat drowsy. HEENT: Pupils are equal and reactive to light and accommodation. Extraocular movements are intact. The sclerae are anicteric. Neuro: Cranial nerves intact Lungs: Clear apices. No expiratory wheezing. Normal respiratory effort. Cardiac: Heart demonstrates a regular rate and rhythm with occasional ectopy. Normal S1 and mechanical S2. Crescendo systolic murmur Pulses: The patient has palpable radial pulses bilaterally that are equal in intensity Extremities: There was no evidence of hypoperfusion. There is no cyanosis or clubbing. There is no edema. Skin: I did not appreciate any rashes on examination today. Results & Data Vital Signs (Past 12 Hours) Vital Signs Temp Pulse Pulse Resp BP BP Pulse Ox 08/25/23 14:00 74 122/73 96 08/25/23 13:23 112/70 95 08/25/23 11:00 111/71 92 08/25/23 10:00 36.1 C L 108/79 94 08/25/23 09:30 08/25/23 08:00 112/76 08/25/23 08:00 35.9 C L 81 15 08/25/23 08:00 08/25/23 08:00 80 08/25/23 07:45 35.6 C L 85 16 94 08/25/23 07:45 118/79 08/25/23 07:30 114/74 08/25/23 07:30 36.4 C L 87 17 93 08/25/23 07:30 08/25/23 07:30 60 16 93 08/25/23 07:15 117/83 08/25/23 07:15 35.9 C L 71 14 95 08/25/23 07:00 113/80 08/25/23 07:00 35.9 C L 74 15 08/25/23 06:30 114/76 08/25/23 06:30 36.1 C L 83 15 92 08/25/23 06:15 112/75 08/25/23 06:15 36.4 C L 88 18 91 08/25/23 06:00 110/70 08/25/23 06:00 36.4 C L 77 14 93 08/25/23 05:00 36.8 C 82 16 08/25/23 05:00 109/71 08/25/23 04:24 14 08/25/23 04:06 83 19 92 08/25/23 04:00 36.6 C 80 18 91 08/25/23 04:00 114/74 08/25/23 04:00 08/25/23 03:00 113/70 08/25/23 03:00 36.8 C 77 18 92 O2 Del Method O2 Flow Rate FiO2 08/25/23 14:00 Oxymask 08/25/23 13:23 Oxymask 08/25/23 11:00 Oxymask 08/25/23 10:00 Oxymask 08/25/23 09:30 Oxymask 6 08/25/23 08:00 08/25/23 08:00 08/25/23 08:00 50 08/25/23 08:00 08/25/23 07:45 Mechanical Vent 08/25/23 07:45 08/25/23 07:30 08/25/23 07:30 Mechanical Vent 08/25/23 07:30 50 08/25/23 07:30 50 08/25/23 07:15 08/25/23 07:15 Mechanical Vent 08/25/23 07:00 08/25/23 07:00 08/25/23 06:30 08/25/23 06:30 Mechanical Vent 08/25/23 06:15 08/25/23 06:15 Mechanical Vent 08/25/23 06:00 08/25/23 06:00 08/25/23 05:00 08/25/23 05:00 08/25/23 04:24 08/25/23 04:06 50 08/25/23 04:00 08/25/23 04:00 08/25/23 04:00 50 08/25/23 03:00 08/25/23 03:00 Laboratory Results Abnormal Lab Results 08/23/23 08/24/23 08/24/23 19:08 14:50 16:05 WBC RBC Hgb POC Hgb Hct POC Hct MCV MCH MCHC RDW Std Deviation RDW Coeff of Malika Plt Count MPV Immature Gran % (Auto) Neut % (Auto) Lymph % (Auto) [place] % (Auto) Eos % (Auto) Baso % (Auto) Neut # (Auto) Lymph # (Auto) [place] # (Auto) Eos # (Auto) Baso # (Auto) Immature Gran # (Auto) PT INR APTT PTT Ratio Sample Site POC pH POC pCO2 POC pO2 POC HCO3 POC Total CO2 POC Base Excess ABG pH (Temp Correct) ABG pCO2 (Temp Corrct POC ABG pO2 at Pt Temp POC ABG O2 Sat [place] Test O2 Delivery Device POC O2 Rate Minute Ventilation POC FiO2 Tidal Volume PEEP POC Sodium Sodium POC Potassium Potassium Chloride Carbon Dioxide Anion Gap BUN Creatinine Est Cr Clr Drug Dosing Est GFR ( Amer) Est GFR (Non-Af Amer) BUN/Creatinine Ratio Glucose POC Glucose POC Glucose (other) 102 H 158 H Calcium Phosphorus Magnesium Total Bilirubin AST ALT Alkaline Phosphatase Total Protein Albumin Globulin Albumin/Globulin Ratio Random Vancomycin Bld Cult ID Panel PCR PCR Panel Negative 08/24/23 08/24/23 08/24/23 16:58 17:45 19:17 WBC RBC Hgb POC Hgb Hct POC Hct MCV MCH MCHC RDW Std Deviation RDW Coeff of Malika Plt Count MPV Immature Gran % (Auto) Neut % (Auto) Lymph % (Auto) [place] % (Auto) Eos % (Auto) Baso % (Auto) Neut # (Auto) Lymph # (Auto) [place] # (Auto) Eos # (Auto) Baso # (Auto) Immature Gran # (Auto) PT INR APTT PTT Ratio Sample Site POC pH POC pCO2 POC pO2 POC HCO3 POC Total CO2 POC Base Excess ABG pH (Temp Correct) ABG pCO2 (Temp Corrct POC ABG pO2 at Pt Temp POC ABG O2 Sat [place] Test O2 Delivery Device POC O2 Rate Minute Ventilation POC FiO2 Tidal Volume PEEP POC Sodium Sodium POC Potassium Potassium Chloride Carbon Dioxide Anion Gap BUN Creatinine Est Cr Clr Drug Dosing Est GFR ( Amer) Est GFR (Non-Af Amer) BUN/Creatinine Ratio Glucose POC Glucose 81 POC Glucose (other) 128 H 120 H Calcium Phosphorus Magnesium Total Bilirubin AST ALT Alkaline Phosphatase Total Protein Albumin Globulin Albumin/Globulin Ratio Random Vancomycin Bld Cult ID Panel PCR 08/24/23 08/24/23 08/24/23 19:40 20:45 21:00 WBC RBC Hgb POC Hgb Hct POC Hct MCV MCH MCHC RDW Std Deviation RDW Coeff of Malika Plt Count MPV Immature Gran % (Auto) Neut % (Auto) Lymph % (Auto) [place] % (Auto) Eos % (Auto) Baso % (Auto) Neut # (Auto) Lymph # (Auto) [place] # (Auto) Eos # (Auto) Baso # (Auto) Immature Gran # (Auto) PT INR APTT PTT Ratio Sample Site POC pH POC pCO2 POC pO2 POC HCO3 POC Total CO2 POC Base Excess ABG pH (Temp Correct) ABG pCO2 (Temp Corrct POC ABG pO2 at Pt Temp POC ABG O2 Sat [place] Test O2 Delivery Device POC O2 Rate Minute Ventilation POC FiO2 Tidal Volume PEEP POC Sodium Sodium POC Potassium Potassium Chloride Carbon Dioxide Anion Gap BUN Creatinine Est Cr Clr Drug Dosing Est GFR ( Amer) Est GFR (Non-Af Amer) BUN/Creatinine Ratio Glucose POC Glucose 143 H 108 H 101 H POC Glucose (other) Calcium Phosphorus Magnesium Total Bilirubin AST ALT Alkaline Phosphatase Total Protein Albumin Globulin Albumin/Globulin Ratio Random Vancomycin Bld Cult ID Panel PCR 08/24/23 08/24/23 08/24/23 21:15 22:17 22:47 WBC RBC Hgb POC Hgb Hct POC Hct MCV MCH MCHC RDW Std Deviation RDW Coeff of Malika Plt Count MPV Immature Gran % (Auto) Neut % (Auto) Lymph % (Auto) [place] % (Auto) Eos % (Auto) Baso % (Auto) Neut # (Auto) Lymph # (Auto) [place] # (Auto) Eos # (Auto) Baso # (Auto) Immature Gran # (Auto) PT INR APTT PTT Ratio Sample Site POC pH POC pCO2 POC pO2 POC HCO3 POC Total CO2 POC Base Excess ABG pH (Temp Correct) ABG pCO2 (Temp Corrct POC ABG pO2 at Pt Temp POC ABG O2 Sat [place] Test O2 Delivery Device POC O2 Rate Minute Ventilation POC FiO2 Tidal Volume PEEP POC Sodium Sodium POC Potassium Potassium Chloride Carbon Dioxide Anion Gap BUN Creatinine Est Cr Clr Drug Dosing Est GFR ( Amer) Est GFR (Non-Af Amer) BUN/Creatinine Ratio Glucose POC Glucose 160 H 118 H 117 H POC Glucose (other) Calcium Phosphorus Magnesium Total Bilirubin AST ALT Alkaline Phosphatase Total Protein Albumin Globulin Albumin/Globulin Ratio Random Vancomycin Bld Cult ID Panel PCR 08/24/23 08/25/23 08/25/23 23:50 00:50 01:45 WBC RBC Hgb POC Hgb Hct POC Hct MCV MCH MCHC RDW Std Deviation RDW Coeff of Malika Plt Count MPV Immature Gran % (Auto) Neut % (Auto) Lymph % (Auto) [place] % (Auto) Eos % (Auto) Baso % (Auto) Neut # (Auto) Lymph # (Auto) [place] # (Auto) Eos # (Auto) Baso # (Auto) Immature Gran # (Auto) PT INR APTT PTT Ratio Sample Site POC pH POC pCO2 POC pO2 POC HCO3 POC Total CO2 POC Base Excess ABG pH (Temp Correct) ABG pCO2 (Temp Corrct POC ABG pO2 at Pt Temp POC ABG O2 Sat Lawrence Test O2 Delivery Device POC O2 Rate Minute Ventilation POC FiO2 Tidal Volume PEEP POC Sodium Sodium POC Potassium Potassium Chloride Carbon Dioxide Anion Gap BUN Creatinine Est Cr Clr Drug Dosing Est GFR ( Amer) Est GFR (Non-Af Amer) BUN/Creatinine Ratio Glucose POC Glucose 129 H 126 H 126 H POC Glucose (other) Calcium Phosphorus Magnesium Total Bilirubin AST ALT Alkaline Phosphatase Total Protein Albumin Globulin Albumin/Globulin Ratio Random Vancomycin Bld Cult ID Panel PCR 08/25/23 08/25/23 08/25/23 02:46 04:06 04:27 WBC RBC Hgb POC Hgb 12.2 L Hct POC Hct 36 L MCV MCH MCHC RDW Std Deviation RDW Coeff of Malika Plt Count MPV Immature Gran % (Auto) Neut % (Auto) Lymph % (Auto) [place] % (Auto) Eos % (Auto) Baso % (Auto) Neut # (Auto) Lymph # (Auto) [place] # (Auto) Eos # (Auto) Baso # (Auto) Immature Gran # (Auto) PT INR APTT PTT Ratio Sample Site L Radial POC pH 7.52 H* POC pCO2 31 L POC pO2 56 L POC HCO3 26 H POC Total CO2 27 POC Base Excess 3.0 H ABG pH (Temp Correct) 7.527 H* ABG pCO2 (Temp Corrct 31 L POC ABG pO2 at Pt Temp 54 POC ABG O2 Sat 92.0 Lawrence Test Pass O2 Delivery Device Ventilator POC O2 Rate 18 Minute Ventilation 8 POC FiO2 50 Tidal Volume 450 PEEP 5 POC Sodium 140 Sodium POC Potassium 2.9 L Potassium Chloride Carbon Dioxide Anion Gap BUN Creatinine Est Cr Clr Drug Dosing Est GFR ( Amer) Est GFR (Non-Af Amer) BUN/Creatinine Ratio Glucose POC Glucose 126 H 126 H POC Glucose (other) Calcium Phosphorus Magnesium Total Bilirubin AST ALT Alkaline Phosphatase Total Protein Albumin Globulin Albumin/Globulin Ratio Random Vancomycin Bld Cult ID Panel PCR 08/25/23 08/25/23 08/25/23 04:39 06:36 07:45 WBC 22.72 H RBC 5.15 Hgb 13.6 L POC Hgb Hct 39.7 L POC Hct MCV 77.1 L MCH 26.4 MCHC 34.3 RDW Std Deviation 39.6 RDW Coeff of Malika 14.1 Plt Count 178 MPV 11.1 Immature Gran % (Auto) 3.2 Neut % (Auto) 88.4 Lymph % (Auto) 3.7 [place] % (Auto) 4.5 Eos % (Auto) 0.0 Baso % (Auto) 0.2 Neut # (Auto) 20.09 H Lymph # (Auto) 0.83 L [place] # (Auto) 1.03 H Eos # (Auto) 0.00 Baso # (Auto) 0.05 Immature Gran # (Auto) 0.72 H PT 49.4 H INR 5.0 H APTT 51 H PTT Ratio 1.8 Sample Site POC pH POC pCO2 POC pO2 POC HCO3 POC Total CO2 POC Base Excess ABG pH (Temp Correct) ABG pCO2 (Temp Corrct POC ABG pO2 at Pt Temp POC ABG O2 Sat Lawrence Test O2 Delivery Device POC O2 Rate Minute Ventilation POC FiO2 Tidal Volume PEEP POC Sodium Sodium 139 POC Potassium Potassium 3.1 L Chloride 104 Carbon Dioxide 26 Anion Gap 9 BUN 38 H Creatinine 1.58 H D Est Cr Clr Drug Dosing 63.3 Est GFR ( Amer) 55.1 Est GFR (Non-Af Amer) 47.5 BUN/Creatinine Ratio 24.1 H Glucose 141 H POC Glucose 116 H POC Glucose (other) 143 H Calcium 8.2 L Phosphorus 2.8 Magnesium 1.8 Total Bilirubin 1.0 D AST 90 H ALT 109 H Alkaline Phosphatase 151 H Total Protein 5.9 L Albumin 2.5 L Globulin 3.4 Albumin/Globulin Ratio 0.7 L Random Vancomycin 8.3 L Bld Cult ID Panel PCR 08/25/23 11:43 WBC RBC Hgb POC Hgb Hct POC Hct MCV MCH MCHC RDW Std Deviation RDW Coeff of Malika Plt Count MPV Immature Gran % (Auto) Neut % (Auto) Lymph % (Auto) [place] % (Auto) Eos % (Auto) Baso % (Auto) Neut # (Auto) Lymph # (Auto) [place] # (Auto) Eos # (Auto) Baso # (Auto) Immature Gran # (Auto) PT INR APTT PTT Ratio Sample Site POC pH POC pCO2 POC pO2 POC HCO3 POC Total CO2 POC Base Excess ABG pH (Temp Correct) ABG pCO2 (Temp Corrct POC ABG pO2 at Pt Temp POC ABG O2 Sat Lawrence Test O2 Delivery Device POC O2 Rate Minute Ventilation POC FiO2 Tidal Volume PEEP POC Sodium Sodium POC Potassium Potassium Chloride Carbon Dioxide Anion Gap BUN Creatinine Est Cr Clr Drug Dosing Est GFR ( Amer) Est GFR (Non-Af Amer) BUN/Creatinine Ratio Glucose POC Glucose 150 H POC Glucose (other) Calcium Phosphorus Magnesium Total Bilirubin AST ALT Alkaline Phosphatase Total Protein Albumin Globulin Albumin/Globulin Ratio Random Vancomycin Bld Cult ID Panel PCR Diagnostic Findings Chest CT obtained 08/23/2023: Consolidations at the lung bases consistent with multi lobar pneumonia. Echocardiogram 08/24/2023: Technically difficult with poor image quality. Preserved LV systolic function. Moderate right ventricular dilation. Mildly reduced RV systolic function. What appeared to be moderate aortic valve sclerosis without significant stenosis (actually mechanical aortic valve) Ascending aortic root repair with aortic valve replacement, 25 mm [place] mechanical prosthesis 08/2011, [facility]. 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 ECG Additional Comments: EKG demonstrated sinus rhythm with occasional PACs. First-degree AV block. Old inferior myocardial infarction and poor R-wave progression across the precordial lead concerning for anterior myocardial infarction. Right bundle branch block PG Care Time/CCT Total # of Minutes Spent Total Time Spent with Patient: Total time spent is greater than 50% in coordination of care (as documented) at patient's floor/unit and/or counseling patient: Coding Level of Care Code 00665 IN/OBS CONSULT LVL 4,60M Diagnoses Cardiac arrest I46.9 History of aortic valve replacement with metallic valve Z95.4
[2023-08-25] MEDS: traMADol HCL 50 MG TABLET PO PRN (16:14)
[2023-08-25] MEDS: HYDROCORTISONE SOD 50 MG in SYRINGE 0 ML IV SCH (16:47)
[2023-08-25] MEDS: ICU ELECTROLYTE REPLACEMENT PROTOCOL SCH (17:34)
[2023-08-25] MEDS: COLLAGENASE OINT 30 GM TUBE EXT SCH (18:37)
[2023-08-26 05:25] LABS: Hematocrit (blood only) 39.5 % (42.0-52.0); Hemoglobin 13.5 g/dl (14.0-18.0); Mean Corpuscular Hemoglobin 26.7 pg (25.0-34.0); Mean Corpuscular Hgb Conc 34.2 g/dL (32.0-36.0); Mean Corpuscular Volume 78.1 fL (80.0-100.0); Mean Platelet Volume 10.8 fL (9.4-12.4); Platelet Count 169 K/uL (130-400); RDW Coefficient of Variation 14.2 % (11.5-14.5); RDW Standard Deviation 39.9 fL (36.4-46.3); Red Blood Count 5.06 M/uL (4.70-6.10); White Blood Count 23.26 K/ul (4.8-10.8)
[2023-08-26 05:41] LABS: Albumin Globulin Ratio 0.7 (0.9-2); Albumin Level 2.6 gm/dl (3.4-5.0); BUN Creatinine Ratio 29.6 (10-20); Bilirubin,Total 0.9 mg/dl (0.2-1.0); Calcium 8.2 mg/dl (8.6-10.3); Creatinine Clr Calc Pharmacy 92.6 ml/min; Est GFR (African American) 87.2 ml/min; Est GFR (Non-African American) 75.3 ml/min; Globulin 3.5 gm/dl (2.5-4.0); Magnesium 1.7 mg/dl (1.7-2.4); Phosphorus 3.5 mg/dl (2.5-4.9); Potassium 2.8 mmol/L (3.5-5.1); Total Protein 6.1 gm/dl (6.0-8.3)
[2023-08-26 05:46] LABS: Partial Thromboplastin Ratio 1.8; Partial Thromboplastin Time 51 Seconds (21-31); Prothrombin Time 54.8 Seconds (9.0-12.0)
[2023-08-26 06:07] LABS: INR 5.6 (0.9-1.1)
--- NOTE | 2023-08-26 06:19 | Electrocardiogram Report ---
Test Reason : Blood Pressure : / mmHG Vent. Rate : 095 BPM Atrial Rate : 095 BPM P-R Int : 230 ms QRS Dur : 148 ms QT Int : 394 ms P-R-T Axes : 088 -70 092 degrees QTc Int : 495 ms Sinus rhythm with 1st degree A-V block with occasional Premature ventricular complexes Premature atrial complexes Left axis deviation Right bundle branch block Inferior infarct , age undetermined Anterolateral infarct , age undetermined Abnormal ECG No previous ECGs available Confirmed by Charlie Thomson ([id number]) on 08/26/2023 6:19:37 AM Referred By: REFERRED SELF Confirmed By:Anton Thomson
--- NOTE | 2023-08-26 06:20 | Electrocardiogram Report ---
Test Reason : Blood Pressure : / mmHG Vent. Rate : 098 BPM Atrial Rate : 000 BPM P-R Int : 000 ms QRS Dur : 146 ms QT Int : 396 ms P-R-T Axes : 000 -68 090 degrees QTc Int : 505 ms Sinus rhythm with 1st degree AV block and premature ventricular contractions. Left axis deviation Right bundle branch block Possible Lateral infarct , age undetermined Inferior infarct , age undetermined Abnormal ECG When compared with ECG of 23-AUG-2023 19:04, (unconfirmed) Wide QRS rhythm has replaced Sinus rhythm Confirmed by Cahrlie Thomson ([id number]) on 08/26/2023 6:20:23 AM Referred By: REFERRED SELF Confirmed By:Anton Thomson
[2023-08-26] MEDS: MAGNESIUM SULFATE / D5W 1 GM/100 ML BAG IV SCH (06:24)
[2023-08-26] MEDS: POTASSIUM CHLORIDE / WTR 20 MEQ/100 ML PLCT IV SCH (06:24)
[2023-08-26 06:31] LABS: Basophils # (auto) 0.04 K/uL (0.00-0.20); Basophils % (auto) 0.2 %; Echinocytes 1+; Immature Granulocytes # (auto) 1.32 K/uL (0.01-0.20); Immature Granulocytes % (auto) 5.7 %; Lymphocytes # (auto) 1.08 K/uL (1.20-3.40); Lymphocytes % (auto) 4.6 %; Monocytes # (auto) 1.41 K/uL (0.11-0.59); Monocytes % (auto) 6.1 %; Neutrophils # (auto) 19.41 K/uL (1.40-6.50); Neutrophils % (auto) 83.4 %
[2023-08-26] MEDS: PHYTONADIONE 2.5 MG in DEXTROSE 5% 50 ML IV ONE (08:00)
[2023-08-26] MEDS ORDERED: COLLAGENASE OINT 30 GM TUBE EXT SCH (09:00)
[2023-08-26] MEDS: MoRPHine SULFATE 2 MG/ML CARP ONE (09:02)
[2023-08-26] MEDS: LIDOCAINE 2% LOCAL 50 ML VIAL ONE (09:03)
[2023-08-26] MEDS: MoRPHine SULFATE 10 MG/ML CARP/VIAL IV STA (09:03)
[2023-08-26] MEDS: SILVER NITR/POTASSIUM NITRATE APPLICATOR ONE (09:03)
--- NOTE | 2023-08-26 09:31 | Surgery Progress Note ---
Date of Service August 26, 2023 Assessment & Plan (1) Sacral wound: Plan: We are following along for patient's sacral wound -Yesterday we ordered for santyl ointment with optifoam dressing to be performed daily to the area -Today Dr. Miranda performed bedside debridement of 50% of the wound with scissors and 15 blade scalpel to debride some of the overlying superficial eschar. bleeding controlled with silver nitrate sticks x3. pt tolerated the procedure well, and required 1x dosing of 2mg IV morphine for pain control. currently wound is dressed with a pressure dressing of dry 4x4 gauze and tape. please leave on for a few hours, then may re-check wound and if no further bleeding is noted may replace santyl and optifoam. may consider further bedside debridement tomorrow -No plans for surgical intervention in the OR given multiple medical issues currently being managed- pneumonia, recent PEA requiring CPR, bacteremia, UTI, with elevated INR. -Pt seen/examined with dr. miranda Admission and Anticipated Discharge Date Admission Date: August 23, 2023 Supervising Physician Co-Signing Physician Notes The patient was placed in the right lateral position the buttock areas had been anesthetized with local anesthetic topically once this was removed the patient's permission using a scalpel pickup and scissors we elevated approximately 50% of the eschar which included the skin to the subcuticular layer area bleeding was appreciated since we controlled with pressure we then applied a 2 x 2 gauze and ABD and tape after we had control of most of the oozing and bleeding with silver nitrate The procedure was tolerated well by the patient This constituted probably 50% of the eschar to a good viable tissue (the area that was excised was approximately 3 cm x 3 cm We went back to see the patient approximately 3 hours later took the 2 x 2 and ABD off the oozing was minimally we then applied Santyl covered with 2 x 2 and ABD and tape and will resume Santyl application on a daily basis Subjective Patient resting comfortably in bed. Offering no complaints at this time . Physical Exam Physical Exam: awake, no distress Gastrointestinal (Abdomen): Percussion/Palpation: abdomen soft Skin: buttocks wound noted, again superficial eschar overlying deep dark purple wound bed with small amount of bloody drainage Results & Data Vital Signs (Past 12 Hours) Vital Signs Temp Pulse Resp BP Pulse Ox Pulse Ox O2 Del Method 08/26/23 06:00 97.7 F 86 20 94 08/26/23 06:00 119/82 08/26/23 05:00 97.5 F L 85 23 91 08/26/23 05:00 130/77 08/26/23 04:00 97.5 F L 90 91 08/26/23 04:00 123/76 08/26/23 03:00 111/81 08/26/23 03:00 97.5 F L 88 20 93 08/26/23 02:00 97.7 F 96 H 20 93 08/26/23 02:00 121/79 08/26/23 01:00 115/76 08/26/23 01:00 97.5 F L 85 21 93 08/26/23 00:00 94 H 08/26/23 00:00 109/83 08/26/23 00:00 97.5 F L 91 H 20 93 08/25/23 23:00 97.5 F L 93 H 20 94 08/25/23 23:00 117/77 08/25/23 22:00 97.5 F L 100 H 22 93 08/25/23 22:00 106/78 08/25/23 22:00 95 Nasal Cannula O2 Flow Rate 08/26/23 06:00 08/26/23 06:00 08/26/23 05:00 08/26/23 05:00 08/26/23 04:00 08/26/23 04:00 08/26/23 03:00 08/26/23 03:00 08/26/23 02:00 08/26/23 02:00 08/26/23 01:00 08/26/23 01:00 08/26/23 00:00 08/26/23 00:00 08/26/23 00:00 08/25/23 23:00 08/25/23 23:00 08/25/23 22:00 08/25/23 22:00 08/25/23 22:00 2 PG Care Time/CCT Total # of Minutes Spent Total Time Spent with Patient: Total time spent is greater than 50% in coordination of care (as documented) at patient's floor/unit and/or counseling patient: Coding Level of Care Code 47447 SUB INP/OBS CARE 2/35MIN Diagnoses Sacral wound S31.000A
[2023-08-26] MEDS: LANTUS PER UNIT CHARGE SC SCH (09:56)
--- NOTE | 2023-08-26 10:04 | Critical Care Progress Note ---
Date of Service August 26, 2023 Assessment & Plan (1) Septic shock: (2) Respiratory failure: (3) Cardiac arrest: (4) Uncontrolled diabetes mellitus with hyperglycemia: (5) History of stroke: (6) Chronic anticoagulation: (7) Sepsis with acute organ dysfunction and septic shock: Plan Impression:: 57-year-old male with severe sepsis with septic shock secondary to Proteus UTI/bacteremia with prior history of stroke admitted with out of hospital cardiac arrest- PEA on arrival likely secondary to respiratory arrest secondary to metabolic encephalopathy and septic shock Recommendations Neuro -din-xy-zqqfloee PEA arrest with unknown downtime however neurologically the patient appears to have responded favorably without significant sequelae. He does have a prior stroke with significant neurological sequelae with paresis of the left upper and lower extremities. No indication for advanced imaging at this point in time. Will follow clinically. Will need PT and OT once extubated. Off all sedation Cardiac -PEA arrest due to severe septic shock and metabolic disarray. Off pressors for over 20 hours. Echo reviewed. Poor acoustic windows but EF appeared relatively preserved. Try and get outside records regarding the patien t's complex cardiovascular history. Continue diuretics Respiratory -CT reviewed. No evidence of pneumonia. Patient with a moderate left-sided effusion. Will wait for the INR level to come down to an acceptable level prior to pursuing a thoracentesis. Patient extubated 08/25/2023. GI -elevated LFTs likely due to hypoperfusion. Trending down. RENAL/LYTES -acute kidney injury, improving. Patient initially presented with ischemic ATN. Creatinine improved today. Continue electrolyte replacement protocol. Urine output adequate. -urosepsis with Proteus in urine and blood. Continue Davis catheter for now ENDO - continue insulin infusion per ICU protocol. And steroids for relative adrenal insufficiency. Continue for now with plans to wean next 3 to 4 days HEME -marked leukocytosis secondary to infection. Continue to trend. No other acute issues ID -severe sepsis. Proteus in urine and blood likely offending agent. Sensitivity to cefepime. Day #4/7 cefepime. Blood cultures also growing Streptococcus species. Will repeat blood cultures today to ensure clearance. LINES/IV ACCESS - PIV, CVL, ETT, OGT, Continue use of these lines DVT PROPHYLAXIS -therapeutically anticoagulated on Coumadin. DISPO: Stable for downgrade out of the ICU to PCU status. Admission and Anticipated Discharge Date Admission Date: August 23, 2023 Subjective Patient seen and examined. Off pressors for the past 25 hours. No significant events overnight. Patient denies any complaints. Review of Systems Review of Systems: All systems reviewed & are unremarkable except as noted in HPI & below Physical Exam Constitutional: WD/WN, vitals as above Neck: trachea midline, no thyromegaly Respiratory: normal respiratory effort, lungs clear to auscultation Cardiovascular: RRR, no murmur, no edema Gastrointestinal (Abdomen): normal bowel sounds, soft, nontender, no hepatosplenomegaly Musculoskeletal: Extremities: extremities normal to inspection Skin: no rashes, warm and dry Lymphatic: no cervical lymphadenopathy Results & Data Results & Data Vital Signs (Past 12 Hours) Vital Signs Temp Pulse Resp BP Pulse Ox Pulse Ox O2 Del Method 08/26/23 09:30 36.2 C L 73 21 95 Nasal Cannula 08/26/23 09:30 123/86 08/26/23 09:30 123/86 08/26/23 09:14 36.2 C L 87 18 97 Nasal Cannula 08/26/23 09:14 111/78 08/26/23 09:00 36.1 C L 88 18 94 Nasal Cannula 08/26/23 08:30 108/80 08/26/23 08:30 36.2 C L 78 21 96 Nasal Cannula 08/26/23 08:00 107/81 08/26/23 08:00 36.2 C L 81 21 98 Nasal Cannula 08/26/23 07:30 35.5 C L 92 H 20 95 Nasal Cannula 08/26/23 07:30 122/81 08/26/23 07:00 36.0 C L 83 19 98 Nasal Cannula 08/26/23 07:00 122/82 08/26/23 06:30 111/74 08/26/23 06:30 36.1 C L 81 20 94 Nasal Cannula 08/26/23 06:00 36.5 C 86 20 94 08/26/23 06:00 119/82 08/26/23 05:00 36.4 C L 85 23 91 08/26/23 05:00 130/77 08/26/23 04:00 36.4 C L 90 91 08/26/23 04:00 123/76 08/26/23 03:00 111/81 08/26/23 03:00 36.4 C L 88 20 93 08/26/23 02:00 36.5 C 96 H 20 93 08/26/23 02:00 121/79 08/26/23 01:00 115/76 08/26/23 01:00 36.4 C L 85 21 93 08/26/23 00:00 94 H 08/26/23 00:00 109/83 08/26/23 00:00 36.4 C L 91 H 20 93 08/25/23 23:00 36.4 C L 93 H 20 94 08/25/23 23:00 117/77 08/25/23 22:00 36.4 C L 100 H 22 93 08/25/23 22:00 106/78 08/25/23 22:00 95 O2 Del Method O2 Flow Rate O2 Flow Rate 08/26/23 09:30 2 08/26/23 09:30 08/26/23 09:30 08/26/23 09:14 2 08/26/23 09:14 08/26/23 09:00 2 08/26/23 08:30 08/26/23 08:30 2 08/26/23 08:00 08/26/23 08:00 2 08/26/23 07:30 2 08/26/23 07:30 08/26/23 07:00 2 08/26/23 07:00 08/26/23 06:30 08/26/23 06:30 2 08/26/23 06:00 08/26/23 06:00 08/26/23 05:00 08/26/23 05:00 08/26/23 04:00 08/26/23 04:00 08/26/23 03:00 08/26/23 03:00 08/26/23 02:00 08/26/23 02:00 08/26/23 01:00 08/26/23 01:00 08/26/23 00:00 08/26/23 00:00 08/26/23 00:00 08/25/23 23:00 08/25/23 23:00 08/25/23 22:00 08/25/23 22:00 08/25/23 22:00 Nasal Cannula 2 Coding Level of Care Code 42661 CRITICAL CARE 1ST 30-74M Diagnoses Septic shock A41.9; R65.21 Respiratory failure J96.00 Chronicity: acute Respiratory failure complication: unspecified whether with hypoxia or hypercapnia Cardiac arrest I46.9 Uncontrolled diabetes mellitus with hyperglycemia E11.65 History of stroke Z86.73 Chronic anticoagulation Z79.01 Sepsis with acute organ dysfunction and septic shock A41.9; R65.21 (2) Respiratory failure Chronicity: acute Respiratory failure complication: unspecified whether with hypoxia or hypercapnia Qualified Code(s): J96.00 - Acute respiratory failure, unspecified whether with hypoxia or hypercapnia
--- NOTE | 2023-08-26 11:07 | Hospitalist Progress Note ---
Date of Service August 26, 2023 Assessment & Plan (1) Cardiac arrest: Plan: Outside of the hospital. The patient was found down and resuscitation efforts were successful. Echo negative for regional wall motion abnormalities. Normal ejection fraction. Continue telemetry. Cardiology consultation appreciated. They did not feel this was a primary cardiac event especially since he has evidence of sepsis with suspected septic shock. Troponin levels are elevated but no evidence of acute coronary syndrome on EKG. (2) Sepsis with acute organ dysfunction and septic shock: Plan: Suspect septic shock present on admission. Blood cultures are positive for Streptococcus and a gram-negative bacillus. The gram-negative bacillus is probably Proteus which is in the urine. He remains on vancomycin and cefepime. Infectious disease consultation requested. Antibiotics have been changed to vancomycin and cefepime. Day 4 of antibiotic coverage. (3) Respiratory failure: Plan: Acute hypoxic respiratory failure. He was extubated on the morning of August 24. Oxygen requirements have decreased to 2 L/min. Wean off as tolerated (4) Aspiration pneumonia of both lower lobes: Plan: Suspected aspiration pneumonia in both lower lobes. Currently on linezolid and meropenem, day 4. Serial chest x-ray (5) Decubitus ulcer: Plan: Debrided today, August 25. Continue local care. Appreciate general surgery consultation and recommendations. (6) Chronic anticoagulation: Plan: With Coumadin. INR is 5.6 this morning, August 25. He has a mechanical valve and target INR is 2.5-3.5. He received a small dose of parenteral vitamin K today. Will repeat INR again later today. No overt bleeding (7) Uncontrolled diabetes mellitus with hyperglycemia: Plan: Type 2 diabetes. Currently on sliding scale coverage and basal insulin therapy. 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 Blood pressure is stable. Plan He will be transferred out of the ICU once the femoral arterial line is removed. It appears he will need rehab placement at the time of discharge. Admission and Anticipated Discharge Date Admission Date: August 23, 2023 Subjective Amazingly alert and oriented after all he has been through. No evidence of anoxic encephalopathy. Infectious disease consultation requested and pending. He appears to have septic shock on admission with blood cultures positive for Streptococcus and gram-negative bacilli. Proteus isolated in the urine. He remains on vancomycin and cefepime. Cardiology consultation appreciated. They do not think this was a primary cardiac event and do not recommend ICD placement at this time. Oxygen requirements are down to 2 L. He underwent surgical debridement of the decubitus ulcer today, August 25. I spoke to his , Chastity, by phone. He did receive a small dose of parenteral vitamin K today for INR 5.6. He does have a mechanical valve in place and the goal INR is 2.5- 3.5. Cardiac echo reveals normal ejection fraction with no regional wall motion abnormalities. He is off pressor support. Review of Systems 2 Review of Systems: Constitutional-no fever or chills ENT-no blurred vision, no double vision, no epistaxis, no sore throat Respiratory-no cough, no wheezing, no shortness of breath Cardiac-no palpitations, no chest pain, no syncope GI-no nausea, vomiting, diarrhea, melena, hematochezia -no urinary retention, no urinary incontinence, no dysuria, no hematuria Musculoskeletal-no joint pain, no muscle tenderness Skin-no bruising, no rashes, no pruritus Neuro-no isolated weakness, no paresthesia, no weakness Psych-no depression, no anxiety Physical Exam 2 Physical Exam: General-awake and alert. Responsive. No fever HEENT-head atraumatic and normocephalic, pupils equal and reactive to light, extraocular muscles intact Neck-no lymphadenopathy or thyromegaly, trachea midline Chest-diminished breath sounds bilaterally with scattered rhonchi. No wheezing Cardiac-regular rate and rhythm, normal S1 and S2 Abdomen-normal bowel sounds, nontender, no hepatosplenomegaly Extremities-no cyanosis, clubbing, or edema Neuro-chronic left hemiparesis from old CVA. No apparent cranial nerve deficits Psych-flat affect Results & Data Results & Data Vital Signs (Past 12 Hours) Vital Signs Temp Pulse Resp BP Pulse Ox O2 Del Method O2 Flow Rate 08/26/23 09:30 36.2 C L 73 21 95 Nasal Cannula 2 08/26/23 09:30 123/86 08/26/23 09:30 123/86 08/26/23 09:14 36.2 C L 87 18 97 Nasal Cannula 2 08/26/23 09:14 111/78 08/26/23 09:00 36.1 C L 88 18 94 Nasal Cannula 2 08/26/23 08:30 108/80 08/26/23 08:30 36.2 C L 78 21 96 Nasal Cannula 2 08/26/23 08:00 107/81 08/26/23 08:00 36.2 C L 81 21 98 Nasal Cannula 2 08/26/23 07:30 35.5 C L 92 H 20 95 Nasal Cannula 2 08/26/23 07:30 122/81 08/26/23 07:00 36.0 C L 83 19 98 Nasal Cannula 2 08/26/23 07:00 122/82 08/26/23 06:30 111/74 08/26/23 06:30 36.1 C L 81 20 94 Nasal Cannula 2 08/26/23 06:00 36.5 C 86 20 94 08/26/23 06:00 119/82 08/26/23 05:00 36.4 C L 85 23 91 08/26/23 05:00 130/77 08/26/23 04:00 36.4 C L 90 91 08/26/23 04:00 123/76 08/26/23 03:00 111/81 08/26/23 03:00 36.4 C L 88 20 93 08/26/23 02:00 36.5 C 96 H 20 93 08/26/23 02:00 121/79 08/26/23 01:00 115/76 08/26/23 01:00 36.4 C L 85 21 93 08/26/23 00:00 94 H 08/26/23 00:00 109/83 08/26/23 00:00 36.4 C L 91 H 20 93 Laboratory Results 08/26/23 04:42 08/26/23 04:42 PG Care Time/CCT Total # of Minutes Spent Total Time Spent with Patient: Total time spent is greater than 50% in coordination of care (as documented) at patient's floor/unit and/or counseling patient: Coding Level of Care Code 06537 SUB INP/OBS CARE 3/50MIN Diagnoses Cardiac arrest I46.9 Sepsis with acute organ dysfunction and septic shock A41.9; R65.21 Respiratory failure J96.00 Chronicity: acute Respiratory failure complication: unspecified whether with hypoxia or hypercapnia Aspiration pneumonia of both lower lobes J69.0 Decubitus ulcer L89.90 Chronic anticoagulation Z79.01 Uncontrolled diabetes mellitus with hyperglycemia E11.65 History of stroke Z86.73 Hypertension I10 (3) Respiratory failure Chronicity: acute Respiratory failure complication: unspecified whether with hypoxia or hypercapnia Qualified Code(s): J96.00 - Acute respiratory failure, unspecified whether with hypoxia or hypercapnia
--- NOTE | 2023-08-26 12:09 | Procedure Note ---
Procedure Note Date of Service August 26, 2023 Coding
[2023-08-26 20:09] LABS: INR 1.5 (0.9-1.1); Prothrombin Time 16.3 Seconds (9.0-12.0)
[2023-08-26] MEDS: INSULIN ASPART PER UNIT CHARGE SC SCH (21:17)
--- NOTE | 2023-08-27 00:01 | Communication Note ---
Alerted by nursing of a fib on telemetry. EKG with a fib, unclear as to whether or not he has been in a fib in the past or not. EKG again demonstrates bifascicular block, T wave inversion lateral leads. Patient evaluated at bed side. Notes continues buttock pain from sacral wound, but otherwise asymptomatic. Denies chest pain/dyspnea. Hemodynamically stable, rate controlled in the 80s. Repeat labs this evening with INR= 1.5; plan to start heparin gtt to bridge until INR therapeutic on warfarin again. INR noted to be supratherapeutic 08/25 qAM. Repeat labs with K=3.2; repleted. Repeat trop decreased from prior. Date of Service: August 27, 2023
[2023-08-27 00:35] LABS: Basophils # (auto) 0.07 K/uL (0.00-0.20); Basophils % (auto) 0.3 %; Eosinophils # (auto) 0.01 K/uL (0.00-0.50); Hematocrit (blood only) 40.2 % (42.0-52.0); Hemoglobin 13.7 g/dl (14.0-18.0); Immature Granulocytes # (auto) 0.57 K/uL (0.01-0.20); Immature Granulocytes % (auto) 2.7 %; Lymphocytes % (auto) 4.3 %; Mean Corpuscular Hgb Conc 34.1 g/dL (32.0-36.0); Mean Corpuscular Volume 79.1 fL (80.0-100.0); Mean Platelet Volume 11.3 fL (9.4-12.4); Monocytes # (auto) 1.05 K/uL (0.11-0.59); Neutrophils % (auto) 87.7 %; Platelet Count 176 K/uL (130-400); RDW Coefficient of Variation 14.6 % (11.5-14.5); RDW Standard Deviation 41.7 fL (36.4-46.3); Red Blood Count 5.08 M/uL (4.70-6.10)
[2023-08-27] MEDS: traMADol HCL 50 MG TABLET PO ONE (00:40)
[2023-08-27 00:41] LABS: Albumin Globulin Ratio 0.8 (0.9-2); Albumin Level 2.7 gm/dl (3.4-5.0); BUN Creatinine Ratio 30.1 (10-20); Calcium 8.4 mg/dl (8.6-10.3); Creatinine Clr Calc Pharmacy 95.2 ml/min; Est GFR (African American) 92.4 ml/min; Est GFR (Non-African American) 79.7 ml/min; Globulin 3.4 gm/dl (2.5-4.0); Magnesium 2.1 mg/dl (1.7-2.4); Potassium 3.2 mmol/L (3.5-5.1); Total Protein 6.1 gm/dl (6.0-8.3)
[2023-08-27 00:51] LABS: Troponin I High Sensitivity 18.4 pg/ml (0-20)
[2023-08-27] MEDS: Heparin IV Adult Wt-Based Low-Dose *NO* INITIAL Bolus Protocol IV STA (01:11)
[2023-08-27] MEDS: HEPARIN SODIUM/DEXTROSE 25,000 UNITS/500 ML BAG IV SCH (01:12)
[2023-08-27] MEDS: MoRPHine SULFATE 2 MG/ML CARP IV ONE ×2 (01:55→06:35)
[2023-08-27] MEDS: POTASSIUM CHLORIDE / WTR 10 MEQ/100 ML PLCT IV SCH (01:55)
[2023-08-27 06:20] LABS: BUN Creatinine Ratio 31.7 (10-20); Creatinine Clr Calc Pharmacy 97.2 ml/min; Est GFR (African American) 94.6 ml/min; Est GFR (Non-African American) 81.6 ml/min; Phosphorus 2.6 mg/dl (2.5-4.9); Potassium 3.3 mmol/L (3.5-5.1)
[2023-08-27 07:51] LABS: Basophils # (auto) 0.04 K/uL (0.00-0.20); Basophils % (auto) 0.2 %; Eosinophils # (auto) 0.02 K/uL (0.00-0.50); Eosinophils % (auto) 0.1 %; Hematocrit (blood only) 39.3 % (42.0-52.0); Immature Granulocytes # (auto) 0.16 K/uL (0.01-0.20); Immature Granulocytes % (auto) 0.9 %; Lymphocytes # (auto) 0.96 K/uL (1.20-3.40); Lymphocytes % (auto) 5.6 %; Mean Corpuscular Hemoglobin 26.3 pg (25.0-34.0); Mean Corpuscular Hgb Conc 33.1 g/dL (32.0-36.0); Mean Corpuscular Volume 79.4 fL (80.0-100.0); Mean Platelet Volume 11.8 fL (9.4-12.4); Monocytes # (auto) 1.03 K/uL (0.11-0.59); Neutrophils # (auto) 14.95 K/uL (1.40-6.50); Neutrophils % (auto) 87.2 %; Platelet Count 186 K/uL (130-400); RDW Coefficient of Variation 14.6 % (11.5-14.5); RDW Standard Deviation 42.6 fL (36.4-46.3); Red Blood Count 4.95 M/uL (4.70-6.10); White Blood Count 17.16 K/ul (4.8-10.8)
[2023-08-27 07:59] LABS: ANTI-Xa, UFH(UnfractionatedHep < 0.10 IU/ml (0.3-0.7)
[2023-08-27] MEDS: WARFARIN SOD 7.5 MG TAB PO ONE (09:49)
--- NOTE | 2023-08-27 13:01 | Surgery Progress Note ---
Date of Service August 27, 2023 Assessment & Plan (1) Sacral wound: Plan: We are following along for patient's sacral wound yesterday was debrided at bedside and santyl ointment with optifoam dressing to be performed daily to the area Dressing changed today , santyl ointment applied and optifoam dressing applied. No plans for surgical debridement Pt seen/examined with dr. Aldana Admission and Anticipated Discharge Date Admission Date: August 23, 2023 Subjective pt resting in bed does not offer complaints at this time Review of Systems Integumentary: unaware of buttock wound Physical Exam Constitutional: cooperative and comfortable Respiratory: normal respiratory effort and able to speak in complete sentence s; no respiratory distress Cardiovascular: Rate/Rhythm: regular rate Skin: + wound Results & Data Vital Signs (Past 12 Hours) Vital Signs Temp Pulse Pulse Resp BP Pulse Ox O2 Del Method 08/27/23 11:30 97.0 F L 86 20 127/88 93 Room Air 08/27/23 07:58 97.3 F L 93 H 18 134/92 93 Room Air 08/27/23 07:15 Room Air 08/27/23 07:15 87 08/27/23 03:04 97.3 F L 91 H 20 123/83 94 Room Air PG Care Time/CCT Total # of Minutes Spent Total Time Spent with Patient: Total time spent is greater than 50% in coordination of care (as documented) at patient's floor/unit and/or counseling patient: Coding Level of Care Code 70806 SUB INP/OBS CARE 06/01MIN Diagnoses Sacral wound S31.000A
--- NOTE | 2023-08-27 15:39 | Hospitalist Progress Note ---
Date of Service August 27, 2023 Assessment & Plan (1) Cardiac arrest: Plan: Outside of the hospital. The patient was found down and resuscitation efforts were successful. Echo negative for regional wall motion abnormalities. Normal ejection fraction. Continue telemetry. Cardiology consultation appreciated. They did not feel this was a primary cardiac event especially since he has evidence of sepsis with suspected septic shock. Troponin levels are elevated but no evidence of acute coronary syndrome on EKG. (2) Bacteremia: Plan: Strep and Proteus isolated. DEO is pending to evaluate the mechanical aortic valve. Appreciate infectious disease consultation and recommendations. He is currently on vancomycin and cefepime, day 5 (3) Atrial fibrillation: Plan: With controlled ventricular rate. Developed August 25 p.m. Heparin drip was started but subsequently discontinued due to bleeding from the freshly debrided sacral decubitus. He was treated for Coumadin toxicity with parenteral vitamin K yesterday, August 25, and INR is down to 1.5 today, August 26. Coumadin 7.5 mg was administered today and INR will be monitored daily. He is now on room air. Flat affect but otherwise stable. OT and PT evaluations ordered. (4) Sepsis with acute organ dysfunction and septic shock: Plan: Suspect septic shock present on admission. Blood cultures are positive for Streptococcus and Proteus. Proteus is also in the urine. He remains on vancomycin and cefepime. Infectious disease consultation requested. Day 5 of antibiotic coverage. (5) Respiratory failure: Plan: Acute hypoxic respiratory failure. He was extubated on the morning of August 24. Resolved. He is now on room air. (6) Aspiration pneumonia of both lower lobes: Plan: Suspected aspiration pneumonia in both lower lobes. Currently on vancomycin and cefepime, day 5. Serial chest x-ray (7) Decubitus ulcer: Plan: Debrided on August 25. Some minor bleeding occurred with heparin drip started last night, August 25. Heparin drip has subsequently been discontinued. Continue local care. Appreciate general surgery consultation and recommendations. (8) Chronic anticoagulation: Plan: With Coumadin. INR dropped to 1.5 after a small dose of parenteral vitamin K was administered yesterday, August 25, for INR 5.6 . Coumadin was restarted today, August 26. He has a mechanical valve and target INR is 2.5-3.5. (9) Uncontrolled diabetes mellitus with hyperglycemia: Plan: Type 2 diabetes. Currently on sliding scale coverage and basal insulin therapy. 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 Blood pressure is stable. Plan Rehab placement pending. Admission and Anticipated Discharge Date Admission Date: August 23, 2023 Subjective He developed atrial fibrillation last evening. Ventricular rate is controlled. He was placed on a heparin drip which was subsequently discontinued because he had some bleeding from his freshly debrided decubitus ulcer site. He received a small dose of parenteral vitamin K yesterday, August 25, for INR 5.6. INR today is 1.5. Coumadin 7.5 mg administered this morning and INR will be followed daily. Review of Systems 2 Review of Systems: Constitutional-no fever or chills ENT-no blurred vision, no double vision, no epistaxis, no sore throat Respiratory-no cough, no wheezing, no shortness of breath Cardiac-no palpitations, no chest pain, no syncope GI-no nausea, vomiting, diarrhea, melena, hematochezia -no urinary retention, no urinary incontinence, no dysuria, no hematuria Musculoskeletal-no joint pain, no muscle tenderness Skin-no bruising, no rashes, no pruritus Neuro-no isolated weakness, no paresthesia, no weakness Psych-no depression, no anxiety Physical Exam 2 Physical Exam: General-awake and alert. Responsive. No fever HEENT-head atraumatic and normocephalic, pupils equal and reactive to light, extraocular muscles intact Neck-no lymphadenopathy or thyromegaly, trachea midline Chest-diminished breath sounds bilaterally with scattered rhonchi. No wheezing Cardiac-irregular rhythm. Controlled rate. Normal S1 and S2 Abdomen-normal bowel sounds, nontender, no hepatosplenomegaly Extremities-no cyanosis, clubbing, or edema Neuro-chronic left hemiparesis from old CVA. No apparent cranial nerve deficits Psych-flat affect Results & Data Results & Data Vital Signs (Past 12 Hours) Vital Signs Temp Pulse Pulse Resp BP Pulse Ox O2 Del Method 08/27/23 15:29 84 08/27/23 11:30 36.1 C L 86 20 127/88 93 Room Air 08/27/23 07:58 36.3 C L 93 H 18 134/92 93 Room Air 08/27/23 07:15 Room Air 08/27/23 07:15 87 Laboratory Results 08/27/23 06:32 08/27/23 05:04 PG Care Time/CCT Total # of Minutes Spent Total Time Spent with Patient: Total time spent is greater than 50% in coordination of care (as documented) at patient's floor/unit and/or counseling patient: Coding Level of Care Code 46149 SUB INP/OBS CARE 3/50MIN Diagnoses Cardiac arrest I46.9 Bacteremia R78.81 Atrial fibrillation I48.91 Sepsis with acute organ dysfunction and septic shock A41.9; R65.21 Respiratory failure J96.00 Chronicity: acute Respiratory failure complication: unspecified whether with hypoxia or hypercapnia Aspiration pneumonia of both lower lobes J69.0 Decubitus ulcer L89.90 Chronic anticoagulation Z79.01 Uncontrolled diabetes mellitus with hyperglycemia E11.65 History of stroke Z86.73 Hypertension I10 (5) Respiratory failure Chronicity: acute Respiratory failure complication: unspecified whether with hypoxia or hypercapnia Qualified Code(s): J96.00 - Acute respiratory failure, unspecified whether with hypoxia or hypercapnia
--- NOTE | 2023-08-27 23:05 | Electrocardiogram Report ---
Test Reason : Blood Pressure : / mmHG Vent. Rate : 082 BPM Atrial Rate : 087 BPM P-R Int : 000 ms QRS Dur : 156 ms QT Int : 500 ms P-R-T Axes : 000 -67 090 degrees QTc Int : 584 ms Atrial fibrillation Right bundle branch block Left anterior fascicular block Bifascicular block T wave abnormality, consider lateral ischemia Abnormal ECG When compared with ECG of 24-AUG-2023 09:25, Atrial fibrillation has replaced Sinus rhythm T wave inversion no longer evident in Inferior leads T wave inversion now evident in Lateral leads Confirmed by Deng Valdez ([id number]) on 08/27/2023 11:05:31 PM Referred By: REFERRED SELF Confirmed By:Deng Valdez
[2023-08-28 06:55] LABS: INR 1.4 (0.9-1.1); Prothrombin Time 15.1 Seconds (9.0-12.0)
--- NOTE | 2023-08-28 07:03 | Communication Note ---
Date of Service: August 28, 2023 Notified by nursing at 0600 on concern for chills, decreased strength right sided, less responsive. Saw pt at bedside, vital signs stable. Did have 16 beat run of VT, now back in a fib with rates in 90s/100s. Lungs with decreased breath sounds through, heart irregularly irregular without murmur, trace LE edema. Unable to follow commands, so neuro exam limited, able to move right UE, but decreased from prior. Residual left sided weakness from prior stroke. Repeat blood cultures, UA, ABG. CXR and Head CT ordered. Off anticoagulation. PE also on differential given that he is off anticoagulation, allergy to contrast could consider V/Q scan if rest of work-up unremarkable. Currently on ceftriaxone, could consider broadening coverage, pending labs. Minimal PO intake over past day, would also consider IVF, if CXR without signs of fluid overload.
[2023-08-28 07:10] LABS: Hematocrit (blood only) 41.8 % (42.0-52.0); Hemoglobin 13.7 g/dl (14.0-18.0); Mean Corpuscular Hemoglobin 26.3 pg (25.0-34.0); Mean Corpuscular Hgb Conc 32.8 g/dL (32.0-36.0); Mean Corpuscular Volume 80.2 fL (80.0-100.0); Mean Platelet Volume 11.3 fL (9.4-12.4); Nucleated RBC # (auto) 0.02 K/uL (0.00-0.12); Nucleated RBC % (auto) 0.1 %; Platelet Count 141 K/uL (130-400); RDW Coefficient of Variation 14.4 % (11.5-14.5); RDW Standard Deviation 42.2 fL (36.4-46.3); Red Blood Count 5.21 M/uL (4.70-6.10); White Blood Count 14.47 K/ul (4.8-10.8)
--- NOTE | 2023-08-28 07:16 | XRay Report ---
XR chest 1V portable HISTORY: 57 years-old Male Increased work of breathing acute shortness of breath COMPARISON: 08/25/2023 TECHNIQUE: AP view of the chest FINDINGS: Cardiac silhouette is enlarged. Median sternotomy with cardiac valvular prosthesis. Interval removal of the endotracheal and enteric tubes. Pulmonary vascular congestion. No pneumothorax or large pleura l effusion. Mild linear left basilar atelectasis versus scarring. Improved aeration of the lungs. IMPRESSION: 1. Cardiomegaly with pulmonary vascular congestion. 2. Interval extubation with removal of the enteric tube. 3. Improved aeration of the lungs with mild persistent left basilar atelectasis/scarring. ACT 112: Negative or not required by law. The above report was generated using voice recognition software. It may contain grammatical, syntax o r spelling errors. Electronically signed by: Eugene Navas M.D. 08/28/2023 7:14 AM
[2023-08-28 07:39] LABS: Basophils # (auto) 0.03 K/uL (0.00-0.20); Basophils % (auto) 0.2 %; Eosinophils # (auto) 0.01 K/uL (0.00-0.50); Eosinophils % (auto) 0.1 %; Immature Granulocytes # (auto) 0.13 K/uL (0.01-0.20); Immature Granulocytes % (auto) 0.9 %; Lymphocytes # (auto) 0.23 K/uL (1.20-3.40); Lymphocytes % (auto) 1.6 %; Monocytes # (auto) 0.09 K/uL (0.11-0.59); Monocytes % (auto) 0.6 %; Neutrophils # (auto) 13.98 K/uL (1.40-6.50); Neutrophils % (auto) 96.6 %; Toxic Vacuolation 2+
--- NOTE | 2023-08-28 08:07 | Surgery Progress Note ---
Date of Service August 28, 2023 Assessment & Plan (1) Sacral wound: Plan: We are following along for patient's sacral wound it was debrided at bedside on 08/25. now recommending daily santyl with optifoam dressing we deferred wound examination today due to other medical issues taking precedence ordered for CT head, repeat cx's, and ABG for change in status overnight (r sided weakness, cold/clammy, less responsive)....RN reports some improvement s/p IV hydrocortisone No plans for surgical debridement Pt seen/examined with dr. Aldana Admission and Anticipated Discharge Date Admission Date: August 23, 2023 Subjective Patient in bed. Nodding to questions ask, but not very communicative. Mouth breathing. Physical Exam Physical Exam: awake Respiratory: mouth breathing Skin: we deferred wound exam today Results & Data Vital Signs (Past 12 Hours) Vital Signs Temp Pulse Resp BP Pulse Ox O2 Del Method 08/28/23 04:22 119/82 08/28/23 03:03 97.3 F L 100 H 20 168/137 H 96 Room Air 08/27/23 22:29 98.2 F 80 18 121/87 95 Room Air PG Care Time/CCT Total # of Minutes Spent Total Time Spent with Patient: Total time spent is greater than 50% in coordination of care (as documented) at patient's floor/unit and/or counseling patient: Coding Level of Care Code 63392 SUB INP/OBS CARE 06/01MIN Diagnoses Sacral wound S31.000A
[2023-08-28 08:21] LABS: Base Excess ABG 8.1 mEq/L (-9-1.8); HCO3 ABG 30 mmol/L (19-24); Oxygen Saturation ABG 96.2 % (90-95); PCO2 ABG 31 mmHg (35-46); PO2 ABG 70 mmHg (80-95)
[2023-08-28 08:25] LABS: Allen Test Pos (Pos); pH ABG 7.59 (7.35-7.45)
[2023-08-28 08:28] LABS: Albumin Globulin Ratio 0.8 (0.9-2); Albumin Level 2.6 gm/dl (3.4-5.0); BUN Creatinine Ratio 33.3 (10-20); Bilirubin,Total 1.3 mg/dl (0.2-1.0); Calcium 8.4 mg/dl (8.6-10.3); Creatinine Clr Calc Pharmacy 96.5 ml/min; Est GFR (African American) 93.5 ml/min; Est GFR (Non-African American) 80.6 ml/min; Globulin 3.1 gm/dl (2.5-4.0); Magnesium 1.7 mg/dl (1.7-2.4); Total Protein 5.7 gm/dl (6.0-8.3)
--- NOTE | 2023-08-28 09:36 | CT Scan Report ---
CT head/brain wo con CLINICAL HISTORY: 57 years-old Male with Right sided weakness. Acute stroke like symptoms TECHNIQUE: Multiple axial CT images of the head were obtained without contrast. A dose lowering tech nique was utilized adhering to the principles of ALARA. CT DOSE: 625.8 mGy.cm COMPARISON: 08/23/2023 FINDINGS: No acute intracranial hemorrhage, midline shift, intracranial mass, hydrocephalus, territorial ischem ia or abnormal extra-axial collection. Involutional changes with chronic microvascular ischemic disea se. The calvarium is intact. There is atherosclerosis with prominence and tortuosity of the left vertebra l and basilar arteries. Prominent atherosclerosis of the distal internal carotid arteries. The parana leena sinuses, mastoid air cells, and middle ear cavities are clear. IMPRESSION: No acute intracranial abnormality identified. ACT 112: Negative or not required by law. The above report was generated using voice recognition software. It may contain grammatical, syntax o r spelling errors. Electronically signed by: Eugene Navas M.D. 08/28/2023 9:33 AM
[2023-08-28] MEDS ORDERED: VANCOMYCIN CONSULT ACTIVE PRN (09:38)
[2023-08-28 10:11] LABS: Appearance Urine Turbid (Clear); Bacteria Urine Automated 2+ (None Seen); Bilirubin Urine 1+ (Negative); Blood Urine 3+ (Negative); Color Urine Dark Yellow; Epithelial Cell Urine Auto 0-2 /hpf (0-2); Glucose Urine UA Negative (Negative); Ketones Urine Trace (Negative); Leukocyte Esterase Urine 3+ (Negative); Nitrite Urine Negative (Negative); Protein Urine 2+ (Negative); RBC Urine Automated >20 /hpf (0-2); Specific Gravity Urine 1.019 (1.000-1.030); Urobilinogen Urine Negative (Negative); WBC Urine Automated >50 /hpf (0-5); pH Urine 5.5 (4.5-7.5)
[2023-08-28] MEDS ORDERED: VANCOMYCIN HCL 2,250 MG in SODIUM CHLORIDE 0.9% 500 ML IV ONE (10:15)
--- NOTE | 2023-08-28 10:20 | Pharmacy Report ---
Pharmacy PK ABX Note - Date of Service August 28, 2023 - Assessment and Plan Assessment 08/27: Vancomycin was d/c 08/24 AM- restarted this AM. Per notes, patient with chills overnight, procalcitonin elevated, lactic acid elevated. Patient just on rocephin 08/24 until now. Scr appears to be back to baseline (had been elevated on admission). Urine with proteus species - S to rocephin. Blood culture initially with proteus species and now coag neg staph and aerococcus on preliminary growing 08/27. Repeat blood cultures are pending. 08/23: 57 year old M receiving cefepime/vancomcyin for treatment of bacteremia. Pertinent microbiologic data includes: Urine/Blood cultures positive for Proteus species, 05/11 coag negative staph. Patient previously on meropenem + linezolid after receiving a dose of vancomycin/ceftriaxone in the ED. Plan to transition linezolid to vancomycin pending final results. Patient with AMRIT on admission, does seem to be downtrending will get level with AM labs. Plan Vancomycin * Loading dose: 2250 mg x 1 * Will start maintenance dose of 1500 mg iv q 12 hours * Dosing predicted to achieve goal AUC/JANICE 400-600 * Plan to collect level in next 24-48 hours to ensure dosing appropriate Pharmacy will continue to follow and will adjust dose/frequency as necessary. Thank you. Pharmacy has transitioned to AUC monitoring for vancomycin. AUC/JANICE is the preferred PK/PD target and is associated with decreased risk of nephrotoxicity compared to traditional trough targets.
[2023-08-28 10:21] LABS: Mucus Urine Present (None Prsent)
[2023-08-28] MEDS: MoRPHine SULFATE 2 MG/ML CARP IV PRN (10:31)
--- NOTE | 2023-08-28 11:51 | Hospitalist Progress Note ---
Date of Service August 28, 2023 Assessment & Plan (1) Cardiac arrest: Plan: Outside of the hospital. The patient was found down and resuscitation efforts were successful. PEA arrest secondary to sepsis Echo negative for regional wall motion abnormalities. Normal ejection fraction. Continue telemetry. Cardiology consultation appreciated. They did not feel this was a primary cardiac event especially since he has evidence of sepsis with suspected septic shock. Troponin levels are elevated but no evidence of acute coronary syndrome on EKG. He was on a ventilator and on pressors initially, extubated on 08/24 Was then diuresed with IV Lasix-discontinued on 08/27 Treating for septicemia as below (2) Acute metabolic encephalopathy: Plan: Started around 08/25 as per patient's but worsened overnight on 08/26 and 08/27 with increased weakness, decreased responsiveness, mostly nonverbal Lactate elevated but otherwise procalcitonin trending downward, renal failure is resolved, some hypokalemia but not severe, sepsis is improving, afebrile Could be withdrawal from not receiving home Lyrica, gabapentin, or oxycodone CT head negative, but ordered MRI brain which showed multiple acute strokes Treating strokes as below Given aspiration, cannot safely resume oral medications at this time and therefore cannot resume gabapentin or Lyrica Can give IV morphine 2 mg every 4 hours as needed-patient reports he usually takes 110 mg oxycodone per day, sometimes 2 on a bad day when pain in his legs is severe Hopefully this will improve with supportive care (3) Bacteremia: Plan: With septicemia an septic shock-febrile, with leukocytosis, septic shock and PEA arrest on arrival Aerococcus viridans and Proteus isolated in blood cultures. There is also coagulase-negative Staphylococcus which is likely a contaminant. His urine culture also grew Proteus. Aerococcus is also most commonly a organism as per ID Appreciate ID consultation DEO is canceled as he is not persistently bacteremic as per my discussion with ID Repeat blood cultures on 08/25 and again repeated on 08/27 no growth to date Repeat urine culture on 08/27 performed for diaphoresis which may be more from pain medication withdrawal Continue ceftriaxone for Proteus. ID wanted to add on vancomycin for coverage for the Aerococcus, however due to poor IV access and compatibility issues, will switch to daptomycin with approval from ID Microbiology lab sent out sensitivities to Aerococcus which will need to be followed Follow CBC, CMP, CK Weaning off IV hydrocortisone stress steroids started in the ICU-decrease to 25 Mg twice daily for today and then stop tomorrow (4) Acute CVA (cerebrovascular accident): Plan: Brain MRI ordered on 08/27 due to ongoing expressive aphasia and metabolic encephalopathy, found multiple acute strokes-2 subcentimeter in right frontal and parietal lobes, 2 additional questionable punctate acute infarcts in left occipital and left cerebellar hemisphere He was only off of anticoagulation for may be 1 to 2 days at the most during this hospitalization after his heparin drip was discontinued for sacral wound bleeding-heparin drip was resumed but due to compatibility issues and poor IV access, will be switched to Lovenox SQ 1 mg/kg twice daily Resume aspirin CO for now as he is unable to swallow With dysphagia-plan to reassess daily by speech therapy but for now we will keep strict n.p.o. due to aspiration at bedside evaluation Holding statin due to daptomycin therapy and also patient not able to take p.o. safely Most likely embolic from either cardiac source but could be from CPR/resuscitation and aortic arch plaque rupture? He has an allergy to IV contrast dye of hives but reports he has been able to tolerate it with Benadryl in the past-defer for now due to fragile status Check carotid Dopplers Add neurochecks and stroke scale every shift Check lipid panel and A1c in the morning Neurology consult placed PT/OT/speech therapy consults Permissive hypertension but adding IV Lopressor for rate control with atrial fibrillation Starting IV fluids at low rate of 70 MLS per hour of normal saline while n.p.o. and to keep blood pressures up along with IV hydrocortisone which is being weaned off (5) Atrial fibrillation: Plan: Developed August 25 p.m. and is new onset for patient Heparin drip was started but subsequently discontinued due to bleeding from the freshly debrided sacral decubitus. He was treated for Coumadin toxicity with parenteral vitamin K on August 25, and INR is down to 1.4 today Coumadin 7.5 mg was administered x 1 on 08/26 but is now on hold due to inability to take p.o. Convert to Lovenox SQ 100 Mg every 12 hours for now Add IV Lopressor 5 Mg IV every 6 hours scheduled for rate control as rates are increasing into the 100s Monitor on telemetry (6) Respiratory failure: Plan: Acute hypoxic respiratory failure. He was extubated on the morning of August 24. Resolved. He is now on room air. (7) Aspiration pneumonia of both lower lobes: Plan: Suspected aspiration pneumonia in both lower lobes on admission but repeat chest x-ray is now clear. No need for antibiotic coverage for pneumonia at this point N.p.o. and speech therapy following as he did aspirate at the bedside of thin liquids with water on 08/27 in the setting of newly diagnosed acute strokes (8) Decubitus ulcer: Plan: Debrided on August 25. Some minor bleeding occurred with heparin drip on August 25 and heparin drip was placed on hold but now restarted-monitor for further bleeding Continue local care. Appreciate general surgery consultation and recomm endations-appreciate bedside debridement (9) Chronic anticoagulation: Plan: With Coumadin. He has a mechanical valve and target INR is 2.5-3.5 As noted above, Coumadin on hold due to strict n.p.o. status, on Lovenox bridging (10) Uncontrolled diabetes mellitus with hyperglycemia: Plan: Type 2 diabetes. Currently on sliding scale coverage and basal insulin therapy. 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 Blood pressure is stable. Permissive hypertension with acute strokes Starting IV Lopressor only for rate control Continue holding home amlodipine, carvedilol, clonidine, furosemide (13) Gout: Plan: Holding home allopurinol (14) BPH w urinary obs/LUTS: Plan: Holding home tamsulosin while strict n.p.o. Davis catheter in place (15) Hypokalemia: Plan: Replace with IV potassium chloride Follow BMP and magnesium (16) History of aortic valve replacement with metallic valve: Plan: Noted, also with repair of aortic aneurysm at that time (17) Hyperlipidemia: Plan: Holding statin due to n.p.o. status and on daptomycin but would resume high intensity due to strokes (18) Peripheral neuropathy: Plan: With chronic pain, takes pregabalin, gabapentin, and oxycodone as needed Holding all of these meds while n.p.o. Plan DVT prophylaxis-heparin drip and now Lovenox SQ Disposition-continue same PCU, critically ill, unable to safely swallow, with rapid A-fib, acute strokes, and encephalopathy. Prognosis is guarded. Discussed care with on phone on 2 occasions. Overall spent 60 minutes in the care of this patient today to include discussions with infectious disease, pharmacy, and nursing staff Admission and Anticipated Discharge Date Admission Date: August 23, 2023 Subjective Patient was noted to be weaker overnight and less responsive. He had labs and a CT of the head and chest x-ray performed. I discussed his care with his and she reports that he did speak to her the evening that he was extubated which was 08/24 but since that time has really been mostly nonverbal and really not acting like himself. He was also noted to aspirate water at the bedside when swallowing pills this morning and was made NPO. DEO was canceled today as it was not necessary as per ID unless was persistently bacteremic. After patient's brain MRI showed multiple acute strokes, I called the patient's back again and reviewed those results with her. Telemetry with atrial fibrillation and PVCs with rates in the 80s to 100s, with a 16 beat run of ventricular tachycardia Physical Exam Constitutional: WD/WN, vitals as above Eyes: PERRL, conjunctivae normal, anicteric sclerae ENMT: Ears: no external ear abnormality Respiratory: normal respiratory effort; no cough Auscultation: + rhonchi; no crackles and no wheezes Cardiovascular: Rate/Rhythm: regular rate and + irregularly irregular Heart Sounds: no murmur Extremities: + edema (Trace pitting edema legs bilaterally) Gastrointestinal (Abdomen): normal bowel sounds, soft, nontender, no hepatosplenomegaly Neurologic: + focal motor deficit (Left-sided hemipa resis), awake and + conf used Speech / Cognition: + expressive aphasia Patient had some delirium. At times he would listen to my questions and shake his head yes or no, but he would not verbalize any responses. Other times, he stared at the wall and did not respond to me but was awake. He had difficulty following commands Genitourinary: Davis catheter in place draining dark yellow urine with a lot of sediment Results & Data Results & Data Vital Signs (Past 12 Hours) Vital Signs Temp Pulse Resp BP Pulse Ox O2 Del Method 08/28/23 11:46 36.9 C 102 H 26 H 105/65 91 Room Air 08/28/23 08:36 36.9 C 113 H 20 104/50 L 98 Room Air 08/28/23 04:22 119/82 08/28/23 03:03 36.3 C L 100 H 20 168/137 H 96 Room Air Laboratory Results CBC, BMP, magnesium, phosphorus, INR, lactate, LFTs, blood cultures reviewed Diagnostic Findings Chest x-ray reviewed MRI brain reviewed PG Care Time/CCT Total # of Minutes Spent Total Time Spent with Patient: Total time spent is greater than 50% in coordination of care (as documented) at patient's floor/unit and/or counseling patient: Coding Level of Care Code 14189 SUB INP/OBS CARE 3/50MIN Diagnoses Cardiac arrest I46.9 Acute metabolic encephalopathy G93.41 Bacteremia R78.81 Acute CVA (cerebrovascular accident) I63.9 Atrial fibrillation I48.91 Respiratory failure J96.00 Chronicity: acute Respiratory failure complication: unspecified whether with hypoxia or hypercapnia Aspiration pneumonia of both lower lobes J69.0 Decubitus ulcer L89.90 Chronic anticoagulation Z79.01 Uncontrolled diabetes mellitus with hyperglycemia E11.65 History of stroke Z86.73 Hypertension I10 Gout M10.9 BPH w urinary obs/LUTS N40.1; N13.8 Hypokalemia E87.6 History of aortic valve replacement with metallic valve Z95.4 Hyperlipidemia E78.5 Peripheral neuropathy G62.9 (6) Respiratory failure Chronicity: acute Respiratory failure complication: unspecified whether with hypoxia or hypercapnia Qualified Code(s): J96.00 - Acute respiratory failure, unspecified whether with hypoxia or hypercapnia
[2023-08-28] MEDS: oxyCODONE HCL IR 5 MG TAB (IMMEDIATE RELEASE) PO STA (11:58)
[2023-08-28] MEDS: POTASSIUM CHLORIDE / WTR 10 MEQ/100 ML PLCT IV SCH (12:43)
--- NOTE | 2023-08-28 13:26 | Infectious Disease Consult ---
Date of Consultation August 28, 2023 Assessment & Plan (1) Acute metabolic encephalopathy: (2) Septic shock: (3) Cardiac arrest: (4) Bacteremia: (5) UTI (urinary tract infection): Plan 57yo M with h/o uncontrolled DM, HTN, HLD, peripheral neuropathy, BPH with LUTS, GERD, gout, stroke with residual left hemiparesis, bicuspid AV s/p mechanical AVR 08/2011 on chronic anticoagulation who presented on 08/22 after [id number] cardiac PEA arrest with ROSC obtained after about 5 to 7 minutes. Intubated in the ED and started on pressors. Found to be febrile up to 40.7. Initial labs with WBC 19.63>>22.72>14.4. Cr 2.70>1.01 Elevated AST/ALT, troponin, and lactate. PCT > 100. UA > [address] head negative, CT chest with multifocal pneumonia at the bilateral bases. CTAP with severe bladder wall thickening with Davis present. He was admitted to the ICU and started on broad spectrum abx. TTE limited, normal LV function, AV sclerosis. CXR with left pleural effusion. Thoracentesis deferred due to elevated INR. Extubated 08/24. Noted to have a sacral decubitus ulcer and seen by surgery, bedside debridement was done on 08/25. Last temp on 08/22, currently on RA. CXR from 08/24 with bl pleural effusions L>R, left consolidation. Altered this am. UA done which had > 50 WBC, UCx pending. CTH negative, CXR without consolidation. Blood cx consist of P mirabilis which likely originated from his UTI. CONS is likely a contaminant and would not treat. Aerococcus viridans grew in 2 diffe rent sets from admission. This is a rare pathogen and usually associated with infection, but has been reported in endocarditis, typically susceptible to PCN or vanc. TTE is negative for endocarditis and BCx cleared relatively quickly. Sources could be multiple, although I suspect it was in setting of cardiac arrest and undergoing CPR. Rima called micro lab and added on sensitivities for Aerococcus, which is a send out study. If any BCx return positive, then would need to pursue DEO. # AMS # Bacteremia 2/2 P mirabilis and Aerococcus viridans # UTI 2/2 P mirabilis # Aspiration PNA in bl lower lobes # Septic shock - off pressors # Cardiac arrest with ROSC extubated, off pressors # AMRIT - improved # Transaminitis 2/2 shock improving # Decubitus ulcer s/p bedside debridement # H/o DM - daptomycin 8mg/kg IV daily for now (BCx in process) - continue CTX 2g IV daily - f/u UCX and BCx - awaiting sensi to Aerococcus (was sent out study) ID will continue to follow. If questions or concerns, contact Infectious Disease Call Center . Becki Sheets MD [facility], Division of Infectious Diseases [facility]: [phone] Consultation Information Consultation was provided via telemedicine using two-way real-time interactive telecommunication between the patient and the telemedicine provider. For the duration of the visit, the provider was performing the assessment from a different facility than the patient. This includesuse of bluetooth stethoscope forauscultationperformed by the telepresenter that the telemedicine provider can hear if described in the physical exam. [employer] contact information: Please call [facility] Call Center . (Phone Number For Physician Use Only) After establishing a telemedicine visit, patient was: Patient was verified with two unique identifiers, Patient/authorized rep acknowledged consent and understanding and Gave permission to continue telehealth session Time Spent with Patient: Initial => 75 min History of Present Illness Reason for Consultation: septic shock, UTI, positive blood cx Attending Physician: Gely Rubi MD History of Present Illness 57yo M with h/o uncontrolled DM, HTN, HLD, peripheral neuropathy, BPH with LUTS, GERD, gout, stroke with residual left hemiparesis, bicuspid AV s/p mechanical AVR 08/2011 on chronic anticoagulation who presented on 08/22 after [id number] cardiac PEA arrest with ROSC obtained after about 5 to 7 minutes. Intubated in the ED and started on pressors. Found to be febrile up to 40.7. Initial labs with WBC 19.63>>22.72>14.4. Cr 2.70>1.01 Elevated AST/ALT, troponin, and lactate. PCT > 100. UA > [address] head negative, CT chest with multifocal pneumonia at the bilateral bases. CTAP with severe bladder wall thickening with Davis present. He was admitted to the ICU and started on broad spectrum abx. TTE limited, normal LV function, AV sclerosis. CXR with left pleural effusion. Thoracentesis deferred due to elevated INR. Extubated 08/24. Noted to have a sacral decubitus ulcer and seen by surgery, bedside debridement was done on 08/25. Last temp on 08/22, currently on RA. CXR from 08/24 with bl pleural effusions L>R, left consolidation. On evaluation, patient is altered and unable to provide any further history. Unclear if this is his new baseline. Allergies Allergy/AdvReac Type Severity Reaction Status Date / Time bee venom protein (honey bee) Allergy Unknown Verified 08/23/23 20:23 Iodinated Contrast Media Allergy Hives Verified 08/23/23 20:23 Penicillins Allergy Hives Verified 08/23/23 20:23 Home Medications Medication Instructions Recorded Confirmed Type allopurinol 100 mg tablet 100 mg PO QAM 08/23/23 08/23/23 History amlodipine 10 mg tablet 10 mg PO QAM 08/23/23 08/23/23 History aspirin 81 mg chewable tablet 81 mg PO DAILY 08/23/23 08/23/23 History (Aspirin Childrens) atorvastatin 10 mg tablet 10 mg PO HS 08/23/23 08/23/23 History carvedilol 25 mg tablet 25 mg PO BID 08/23/23 08/23/23 History clonidine HCl 0.2 mg tablet 0.2 mg PO TID 08/23/23 08/23/23 History famotidine 40 mg tablet 40 mg PO DAILYBB 08/23/23 08/23/23 History furosemide 40 mg tablet 20 mg PO Q OTHER DAY 08/23/23 08/23/23 History gabapentin 300 mg capsule 300 mg PO TID 08/23/23 08/23/23 History montelukast 10 mg tablet 10 mg PO DAILY 08/23/23 08/23/23 History pregabalin 150 mg capsule 150 mg PO BID 08/23/23 08/23/23 History tamsulosin 0.4 mg capsule 0.4 mg PO QAM 08/23/23 08/23/23 History warfarin 1 mg tablet 1 mg PO DAILY 08/23/23 08/23/23 History warfarin 5 mg tablet 5 mg PO DAILY 08/23/23 08/23/23 History oxycodone 15 mg tablet 15 mg PO Q4 PRN Severe Pain (Scale 08/28/23 08/28/23 History Score 7-10) Patient History Medical History GERD (gastroesophageal reflux disease) Hyperlipidemia Peripheral neuropathy Gout Hypertension BPH w urinary obs/LUTS Chronic anticoagulation History of stroke Social History Smoking Status: Never smoker Tobacco Type: Smokeless Tobacco (Dip or Chew) Second Hand Exposure: No; Do You Dip or Chew Tobacco: Yes; Tobacco Cessation Education Requested by Patient: No Hx Alcohol Use: No Hx Substance Use: No Preferred Language: Tristanian Communication Ability: Unable Stunt Person Required: No Beliefs That Will Affect Care: None Current Living Situation: Spouse Other Information That Helps Us Care for You: No Feels Safe at Home: Yes Safety Concerns: Feels Safe At This Time Assistive Devices: Mechanical Lift and Wheelchair Review of System Unable to obtain as patient is altered. Physical Exam Physical Exam: General: altered, no acute distress HEENT: NC/AT, EOMI, dry mm Lungs: respirations non-labored Heart: nl peripheral perfusion Abdomen: soft, NT/ND Ext: no LE edema Skin: no rash Neuro: movine head, eyes open, not responsive Results & Data Vital Signs (Past 12 Hours) Vital Signs Temp Pulse Resp BP Pulse Ox O2 Del Method 08/28/23 08:36 36.9 C 113 H 20 104/50 L 98 Room Air 08/28/23 04:22 119/82 08/28/23 03:03 36.3 C L 100 H 20 168/137 H 96 Room Air 08/27/23 22:29 36.8 C 80 18 121/87 95 Room Air Laboratory Results Labs reviewed Diagnostic Findings Imaging reviewed
[2023-08-28] MEDS: MONTELUKAST SODIUM 10 MG TABLET PO SCH (13:33)
[2023-08-28] MEDS: PREGABALIN 150 MG CAP PO SCH (13:33)
[2023-08-28] MEDS: TAMSULOSIN HCL 0.4 MG CAP PO SCH (13:33)
[2023-08-28] MEDS: allopurinoL 100 MG TAB PO SCH (13:33)
[2023-08-28] MEDS ORDERED: GABAPENTIN 300 MG CAP PO SCH (14:00)
[2023-08-28] MEDS: DAPTOmycin 525 MG in SYRINGE 0 ML IV SCH (14:32)
[2023-08-28] MEDS: DAPTOmycin 275 MG in SYRINGE 0 ML IV ONE (15:14)
[2023-08-28] MEDS: GADOBUTROL 65ML VIAL IV ONE (15:57)
[2023-08-28] MEDS ORDERED: WARFARIN SOD 6 MG TAB PO SCH (16:00)
[2023-08-28 16:02] LABS: ANTI-Xa, UFH(UnfractionatedHep 0.22 IU/ml (0.3-0.7)
--- NOTE | 2023-08-28 16:40 | Magnetic Resonance Report ---
Brain MRI WITH AND WITHOUT CONTRAST HISTORY: mental status changes,post-cardiac arrest TECHNIQUE: Multiplanar multisequence MRI of the brain was performed both before and after the intrave nous administration of contrast. COMPARISON STUDY: Head CT 08/28/2023. FINDINGS: There is an 8 mm focus of restricted diffusion within the right frontal lobe on axial image 15. There is additional punctate focus of restricted diffusion within the right parietal periventric ular white matter on image 16. These are consistent with small acute infarcts. There may be 2 additio nal punctate foci of restricted diffusion within the left posterior occipital lobe on image 11 and wi thin the left cerebellar hemisphere in image 6. These could represent an additional punctate acute in farcts versus artifact. The midline structures are intact. The ventricles and sulci demonstrate mild age-related involutional changes. Periventricular matter T2 hyperintensity is nonspecific but favors mild microvascular ischemic change. Trace fluid level within the left sphenoid sinus. Trace mastoid e ffusions. The major vascular flow-voids at the skull base are maintained. There are multiple old punc murdock lacunar infarcts seen within the cerebellar hemispheres. There is no mass, hematoma, or midline shift. The orbits are unremarkable. Postcontrast sequences show no areas of abnormal enhancement. Melonie ceptibility artifact noted within the right thalamus consistent with hemosiderin in the setting of an old hemorrhagic infarct. IMPRESSION: 1. There are 2 subcentimeter acute infarcts within the right frontal and parietal lobes as described above. 2. There are 2 additional questionable punctate acute infarcts within the left occipital lobe and lef t cerebellar hemisphere. 3. Old additional infarcts within the right thalamus and cerebellar hemispheres. 4. Atrophy and microvascular ischemic changes. 5. Trace fluid level within the left sphenoid sinus. ACT 112: Negative or not required by law. Electronically signed by: Ulises Grant M.D. 08/28/2023 4:39 PM
[2023-08-28] MEDS ORDERED: PHARMACIST DISCHARGE MED REC CONSULT PRN (16:45)
[2023-08-28] MEDS: ASPIRIN 300 MG SUPP PR SCH (18:17)
[2023-08-28] MEDS: SODIUM CHLORIDE 0.9% 1,000 ML IV SCH (18:22)
[2023-08-28] MEDS ORDERED: ATORVASTATIN 10 MG TAB PO SCH (21:00)
[2023-08-28] MEDS: HYDROCORTISONE SOD 25 MG in SYRINGE 0 ML IV SCH (21:03)
[2023-08-28] MEDS: ENOXAPARIN 100 MG/1ML SYR SQ SCH (21:05)
[2023-08-28] MEDS: METOPROLOL TARTRATE 1 MG/ML VIAL IV SCH (23:02)
[2023-08-28 23:35] LABS: ANTI-Xa, UFH(UnfractionatedHep 0.47 IU/ml (0.3-0.7)
[2023-08-29] MEDS: INSULIN ASPART PER UNIT CHARGE SC SCH (01:35)
[2023-08-29 05:50] LABS: Basophils # (auto) 0.03 K/uL (0.00-0.20); Basophils % (auto) 0.2 %; Eosinophils # (auto) 0.04 K/uL (0.00-0.50); Eosinophils % (auto) 0.2 %; Hematocrit (blood only) 37.8 % (42.0-52.0); Hemoglobin 12.5 g/dl (14.0-18.0); Immature Granulocytes # (auto) 0.38 K/uL (0.01-0.20); Lymphocytes # (auto) 1.22 K/uL (1.20-3.40); Lymphocytes % (auto) 6.4 %; Mean Corpuscular Hemoglobin 26.6 pg (25.0-34.0); Mean Corpuscular Hgb Conc 33.1 g/dL (32.0-36.0); Mean Corpuscular Volume 80.4 fL (80.0-100.0); Mean Platelet Volume 11.9 fL (9.4-12.4); Monocytes # (auto) 1.05 K/uL (0.11-0.59); Monocytes % (auto) 5.5 %; Neutrophils # (auto) 16.46 K/uL (1.40-6.50); Neutrophils % (auto) 85.7 %; Platelet Count 104 K/uL (130-400); RDW Coefficient of Variation 14.5 % (11.5-14.5); RDW Standard Deviation 42.5 fL (36.4-46.3); White Blood Count 19.18 K/ul (4.8-10.8)
[2023-08-29 05:54] LABS: Albumin Level 2.6 gm/dl (3.4-5.0); BUN Creatinine Ratio 36.6 (10-20); Bilirubin Direct 0.4 mg/dl (0-0.2); Calcium 8.3 mg/dl (8.6-10.3); Chol HDL Ratio 7.5 (0-5); Est GFR (Non-African American) 97.5 ml/min; Potassium 2.9 mmol/L (3.5-5.1); Total Protein 5.9 gm/dl (6.0-8.3)
[2023-08-29 06:12] LABS: INR 1.7 (0.9-1.1); Prothrombin Time 17.6 Seconds (9.0-12.0)
[2023-08-29] MEDS ORDERED: FAMOTIDINE 40 MG TABLET PO SCH (06:30)
--- NOTE | 2023-08-29 06:57 | Ultrasound Report ---
BILATERAL CAROTID DOPPLER STUDY HISTORY: Multifocal strokes. COMPARISON: None. TECHNIQUE: Real-time, grayscale, and color Doppler sonography of the carotid arteries was performed. Imaging reviewed in the transverse and longitudinal planes. All measurements were calculated based on NASCET criteria. FINDINGS: Antegrade flow is seen in the bilateral vertebral arteries. Mild calcified plaque within the bilateral carotid bifurcations. The peak systolic velocity within the right ICA is 32 cm/s. The right systolic ratio is 0.5. The peak systolic velocity within the left ICA is 38 cm/s. The left systolic ratio is 0.5. IMPRESSION: No hemodynamically significant stenosis seen within the carotid arteries. ACT 112: Negative or not required by law. Electronically signed by: Ulises Grant M.D. 08/29/2023 6:54 AM
[2023-08-29 07:43] LABS: Estimated Average Glucose 269 mg/dl
--- NOTE | 2023-08-29 08:41 | Infectious Disease Progress Nt ---
Date of Service August 29, 2023 Assessment & Plan (1) Acute metabolic encephalopathy: (2) Septic shock: (3) Cardiac arrest: (4) Bacteremia: (5) UTI (urinary tract infection): Plan 57yo M with h/o uncontrolled DM, HTN, HLD, peripheral neuropathy, BPH with LUTS, GERD, gout, stroke with residual left hemiparesis, bicuspid AV s/p mechanical AVR 08/2011 on chronic anticoagulation who presented on 08/22 after [id number] cardiac PEA arrest with ROSC obtained after about 5 to 7 minutes. Intubated in the ED and started on pressors. Found to be febrile up to 40.7. Initial labs with WBC 19.63>>22.72>14.4>19. Cr 2.70>1.01 Elevated AST/ALT, troponin, and lactate. PCT > 100. UA > [address] head negative, CT chest with multifocal pneumonia at the bilateral bases. CTAP with severe bladder wall thickening with Davis present. He was admitted to the ICU and started on broad spectrum abx. TTE limited, normal LV function, AV sclerosis. CXR with left pleural effusion. Thoracentesis deferred due to elevated INR. Extubated 08/24. Noted to have a sacral decubitus ulcer and seen by surgery, bedside debridement was done on 08/25. Last temp on 08/22, currently on RA. CXR from 08/24 with bl pleural effusions L>R, left consolidation. Altered on 08/27. UA done which had > 50 WBC, UCx pending. BCx pending. CTH negative, CXR without consolidation. MRI with acute infarcts in R frontal and parietal lobes, questionable infarcts in left occipital and cerebellar hemisphere. Patient with multiple infarcts in multiple hemispheres on MRI. Its possible this could be related to his recent cardiac arrest, however, in the presence of Aerococcus bacteremia which has been reported in endocarditis, along with his mechanical AV valve, further workup should be pursued with DEO to r/o cardiac vegetations. Continue higher dose of daptomycin. BCx with P mirabilis likely likely originated from his UTI. CONS is likely a contaminant and would not treat. # AMS # Multiple infarcts on MRI brain # Bacteremia 2/2 P mirabilis and Aerococcus viridans # UTI 2/2 P mirabilis # Aspiration PNA in bl lower lobes # Septic shock - off pressors # Cardiac arrest with ROSC extubated, off pressors # AMRIT - improved # Transaminitis 2/2 shock improving # Decubitus ulcer s/p bedside debridement # H/o DM - would pursue DEO - continue daptomycin 8mg/kg IV daily - continue CTX 2g IV daily for Proteus - f/u UCX and BCx - awaiting sensi to Aerococcus (was sent out study) ID will continue to follow. If questions or concerns, contact Infectious Disease Call Center . Becki Sheets MD [facility], Division of Infectious Diseases [facility]: [phone] Admission and Anticipated Discharge Date Admission Date: August 23, 2023 Subjective This patient recommendation is based on a telemedicine consult request which was completed asynchronously through chart review and information provided by the primary physician. The patient was not seen or examined today. The evaluation is consultative in nature and all patient care and treatment decisions can either be accepted or rejected by the patient's primary hospital-based treating physician using their own independent medical judgment for their patient. Time Spent Reviewing Chart: 31+ minutes Results & Data Vital Signs (Past 12 Hours) Vital Signs Temp Pulse Pulse Resp BP BP BP 08/29/23 07:59 79 08/29/23 07:56 36.3 C L 91 H 17 188/101 H 08/29/23 07:46 89 137/110 H 08/29/23 05:31 90 154/96 H 08/29/23 02:50 36.5 C 87 16 168/108 H 08/28/23 22:45 36.5 C 91 H 19 101/62 08/28/23 21:00 Pulse Ox O2 Del Method 08/29/23 07:59 08/29/23 07:56 94 Room Air 08/29/23 07:46 08/29/23 05:31 08/29/23 02:50 93 Room Air 08/28/23 22:45 93 Room Air 08/28/23 21:00 Room Air Diagnostic Findings MRI with multiple infarcts.
--- NOTE | 2023-08-29 09:18 | Neurology Consultation ---
Date of Consultation August 29, 2023 Assessment & Plan (1) Acute CVA (cerebrovascular accident): History of Present Illness Attending Physician: Gely Rubi MD History of Present Illness pt this morning alert and follows simple command. pt with known left hemisparesis from prior stroke. mri brain noted for subacute appearing small ischemic lesions. pt septic currently and on Lovenox and ASA. NAD this morning. ID consult note and hx: 57yo M with h/o uncontrolled DM, HTN, HLD, peripheral neuropathy, BPH with LUTS, GERD, gout, stroke with residual left hemiparesis, bicuspid AV s/p mechanical AVR 08/2011 on chronic anticoagulation who presented on 08/22 after [id number] cardiac PEA arrest with ROSC obtained after about 5 to 7 minutes. Intubated in the ED and started on pressors. Found to be febrile up to 40.7. Initial labs with WBC 19.63>>22.72>14.4. Cr 2.70>1.01 Elevated AST/ALT, troponin, and lactate. PCT > 100. UA > [address] head negative, CT chest with multifocal pneumonia at the bilateral bases. CTAP with severe bladder wall thickening with Davis present. He was admitted to the ICU and started on broad spectrum abx. TTE limited, normal LV function, AV sclerosis. CXR with left pleural effusion. Thoracentesis deferred due to elevated INR. Extubated 08/24. Noted to have a sacral decubitus ulcer and seen by surgery, bedside debridement was done on 08/25. Last temp on 08/22, currently on RA. CXR from 08/24 with bl pleural effusions L>R, left consolidation. Altered this am. UA done which had > 50 WBC, UCx pending. CTH negative, CXR without consolidation. Blood cx consist of P mirabilis which likely originated from his UTI. CONS is likely a contaminant and would not treat. Aerococcus viridans grew in 2 different sets from admission. This is a rare pathogen and usually associated with infection, but has been reported in endocarditis, typically susceptible to PCN or vanc. TTE is negative for endocarditis and BCx cleared relatively quickly. Sources could be multiple, although I suspect it was in setting of cardiac arrest and undergoing CPR. Rima called micro lab and added on sensitivities for Aerococcus, which is a send out study. If any BCx return posi tive, then would need to pursue DEO. # AMS # Bacteremia 2/2 P mirabilis and Aerococcus viridans # UTI 2/2 P mirabilis # Aspiration PNA in bl lower lobes # Septic shock - off pressors # Cardiac arrest with ROSC extubated, off pressors # AMRIT - improved # Transaminitis 2/2 shock improving # Decubitus ulcer s/p bedside debridement # H/o DM Allergies Allergy/AdvReac Type Severity Reaction Status Date / Time bee venom protein (honey bee) Allergy Unknown Verified 08/23/23 20:23 Iodinated Contrast Media Allergy Hives Verified 08/23/23 20:23 Penicillins Allergy Hives Verified 08/23/23 20:23 Home Medications Medication Instructions Recorded Confirmed Type allopurinol 100 mg tablet 100 mg PO QAM 08/23/23 08/23/23 History amlodipine 10 mg tablet 10 mg PO QAM 08/23/23 08/23/23 History aspirin 81 mg chewable tablet 81 mg PO DAILY 08/23/23 08/23/23 History (Aspirin Childrens) atorvastatin 10 mg tablet 10 mg PO HS 08/23/23 08/23/23 History carvedilol 25 mg tablet 25 mg PO BID 08/23/23 08/23/23 History clonidine HCl 0.2 mg tablet 0.2 mg PO TID 08/23/23 08/23/23 History famotidine 40 mg tablet 40 mg PO DAILYBB 08/23/23 08/23/23 History furosemide 40 mg tablet 20 mg PO Q OTHER DAY 08/23/23 08/23/23 History gabapentin 300 mg capsule 300 mg PO TID 08/23/23 08/23/23 History montelukast 10 mg tablet 10 mg PO DAILY 08/23/23 08/23/23 History pregabalin 150 mg capsule 150 mg PO BID 08/23/23 08/23/23 History tamsulosin 0.4 mg capsule 0.4 mg PO QAM 08/23/23 08/23/23 History warfarin 1 mg tablet 1 mg PO DAILY 08/23/23 08/23/23 History warfarin 5 mg tablet 5 mg PO DAILY 08/23/23 08/23/23 History oxycodone 15 mg tablet 15 mg PO Q4 PRN Severe Pain (Scale 04/22/24 04/22/24 History Score 7-10) Patient History Medical History (Updated 08/28/23 @ 16:53 by Gely Rubi MD) Acute CVA (cerebrovascular accident) GERD (gastroesophageal reflux disease) Hyperlipidemia Peripheral neuropathy Gout Hypertension BPH w urinary obs/LUTS Chronic anticoagulation History of stroke Social History Smoking Status: Never smoker Tobacco Type: Smokeless Tobacco (Dip or Chew) Second Hand Exposure: No; Do You Dip or Chew Tobacco: Yes; Tobacco Cessation Education Requested by Patient: No Hx Alcohol Use: No Hx Substance Use: No Preferred Language: Welsh Communication Ability: Unable Fur Glosser Required: No Beliefs That Will Affect Care: None Current Living Situation: Spouse Other Information That Helps Us Care for You: No Feels Safe at Home: Yes Safety Concerns: Feels Safe At This Time Assistive Devices: Mechanical Lift and Wheelchair Review of Systems Review of Systems: All systems reviewed & are unremarkable except as noted in Subjective Constitutional: as per Subjective / HPI Eyes: as per Subjective / HPI Ear, Nose, Mouth, Throat: as per Subjective / HPI Respiratory: as per Subjective / HPI Cardiovascular: as per Subjective / HPI Gastrointestinal: as per Subjective / HPI Musculoskeletal: as per Subjective / HPI Integumentary: as per Subjective / HPI Neurologic: as per Subjective / HPI Psychiatric: as per Subjective / HPI Endocrine: as per Subjective / HPI Hematologic / Lymphatic: as per Subjective / HPI Allergy / Immunological: as per Subjective / HPI Exam (Neuro) Physical Exam: \ Neuro: Mental: Alert, following simple command. nonfluent speech, normal comprehension, no apraxia, no L/R confusion, no neglect CN: PERRL, Full EOM, symmetric face, Motor: No abnormal movements, left hemispasticparesis. rt arm able to move above shoulder on command. some rt leg movements. Coord: unable to test. DTR: 2+ sym left arm, 1+ rt side. Impression: 57 yo male with s/p cardiac arrest and found to be septic and mri brain noted for small multiple ischemic lesion with known atrial fib. Pt with mild drowsiness but able to follow command. his mri brain findings appears to be subacute in nature and likely due to his sepsis. Recommendations: 1 pt on Loveonx SQ therapeutic dose. no clear need for ASA (can stop it). 3.caroid u/s was essentiall negative and ID recommend no clear need for DEO as he is not bacetermic anymore. 4 no need for permissive HTN as stroke a ppears subacute. avoid hypotension. 5 6. Long-term SBP goal less than 130. 7. Plenty of hydration including IV flui d if possible (use isotonic solution) next 1-2 days. Avoid hypovolemia and hypotension. 8. Initiate DVT prevention therapy. 9. Avoid hypoglycemia, serum glucose goa l during hospitalization: 140-180. 10. Long-term HgA1c goal less than 7. 11.hold statin therapy due to pt being o n Daptomycin, which can cause rha bdomylosis. long-term LDL goal less than 70. 12. Head of bed up 30 degrees if possibl e. 13. Stroke education by nursing and appr opriate staff. 14. Telemetry monitoring. Consider intermediate frame tender cardiac monitoring, i.e. MCOT (mobile cardiac outpatient telemetry) or ICM (insertable other sports coach or instructor, e.g. LINQ), if never had intermediate frame tender cardiac monitoring done previously. And if found to have atrial flutter or fibrillation, should consider anticoagulation therapy if no contraindication. 15. Fall precaution and aspiration preca ution. 16. Consult physical and occupational th erapy evaluation. 17. continue sepsis tx. otherwise, not much to add from neurology stand point. continue supportive care as now. call again if new question. Chart reviewed I have spent more than 50% educating patient about potential diagnosis and neurological evaluation and coordinating care with patient's treatment team. Total time spent (including chart review and coordination of care): 60 min (this includes chart review). Results & Data Vital Signs (Past 12 Hours) Vital Signs Temp Pulse Pulse Resp BP BP BP 08/29/23 07:59 79 08/29/23 07:56 36.3 C L 91 H 17 188/101 H 08/29/23 07:46 89 137/110 H 08/29/23 05:31 90 154/96 H 08/29/23 02:50 36.5 C 87 16 168/108 H 08/28/23 22:45 36.5 C 91 H 19 101/62 Pulse Ox O2 Del Method 08/29/23 07:59 08/29/23 07:56 94 Room Air 08/29/23 07:46 08/29/23 05:31 08/29/23 02:50 93 Room Air 08/28/23 22:45 93 Room Air PG Care Time/CCT Total # of Minutes Spent Total Time Spent with Patient: Total time spent is greater than 50% in coordination of care (as documented) at patient's floor/unit and/or counseling patient: Coding Level of Care Code 35662 IN/OBS CONSULT LVL 4,60M Diagnoses Acute CVA (cerebrovascular accident) I63.9
[2023-08-29] MEDS: POTASSIUM CHLORIDE / WTR 10 MEQ/100 ML PLCT IV SCH (09:35)
[2023-08-29] MEDS: THIAMINE HCL 200 MG in SODIUM CHLORIDE 0.9% 50 ML IV SCH (11:15)
[2023-08-29] MEDS: DAPTOmycin 800 MG in SYRINGE 0 ML IV SCH (11:17)
--- NOTE | 2023-08-29 13:32 | Hospitalist Progress Note ---
Date of Service August 29, 2023 Assessment & Plan (1) Cardiac arrest: Plan: Outside of the hospital. The patient was found down and resuscitation efforts were successful. PEA arrest secondary to sepsis Echo negative for regional wall motion abnormalities. Normal ejection fraction. Continue telemetry. Cardiology consultation appreciated. They did not feel this was a primary cardiac event especially since he has evidence of sepsis with suspected septic shock. Troponin levels are elevated but no evidence of acute coronary syndrome on EKG. He was on a ventilator and on pressors initially, extubated on 08/24 Was then diuresed with IV Lasix-discontinued on 08/27 Treating for septicemia as below (2) Acute metabolic encephalopathy: Plan: Started around 08/25 as per patient's but worsened overnight on 08/26 and 08/27 with increased weakness, decreased responsiveness, mostly nonverbal Lactate elevated but otherwise procalcitonin trending downward, renal failure is resolved, some hypokalemia but not severe, sepsis is improving, afebrile Initially thought could be withdrawal from not receiving home Lyrica, gabapentin, or oxycodone CT head negative, but ordered MRI brain which showed multiple acute strokes- likely culprit Much improved on 08/28 and is now able to verbalize things and is much more alert and awake, able to participate in video swallow study and start oral feeds Treating strokes Can give IV morphine 2 mg every 4 hours as needed-patient reports he usually takes 15-30 mg oxycodone per day when pain in his legs is severe Hopefully this will continue to improve with supportive care and improvement over time from his strokes Continue IV fluid gentle hydration until taking adequate p.o. Continue antibiotic therapy for bacteremia Started thiamine 200 mg IV twice daily as he has had no nutrition for 6 to 7 days Resume home Lyrica now that he can take p.o. (3) Bacteremia: Plan: With septicemia and septic shock-febrile, with leukocytosis, septic shock and PEA arrest on arrival Aerococcus viridans and Proteus isolated in blood cultures. There is also coagulase-negative Staphylococcus which is likely a contaminant. His urine culture also grew Proteus. Aerococcus is also most commonly a organism as per ID. Urine is most likely source but could be from sacral wound? Appreciate ID consultation DEO is now indicated given multiple embolic appearing strokes-could be septic emboli-consult cardiology for DEO-plan for tomorrow Repeat blood cultures on 08/25 and 08/27 remain no growth to date Repeat urine culture on 08/27 performed for diaphoresis which may be more from pain medication withdrawal-follow Continue ceftriaxone for Proteus. ID added on daptomycin for coverage for the Aerococcus Microbiology lab sent out sensitivities to Aerococcus which will need to be followed Follow CBC, CMP, CK Will now discontinue IV hydrocortisone stress steroids started in the ICU (4) Acute CVA (cerebrovascular accident): Plan: Brain MRI ordered on 08/27 due to ongoing expressive aphasia and metabolic encephalopathy, found multiple acute strokes-2 subcentimeter in right frontal and parietal lobes, 2 additional questionable punctate acute infarcts in left occipital and left cerebellar hemisphere He was only off of anticoagulation for 1-2 days at the most during this hospitalization after his heparin drip was discontinued for sacral wound bleeding-heparin drip was resumed but due to compatibility issues and poor IV access, was switched to Lovenox SQ 1 mg/kg twice daily. Seems less likely to be cardioembolic from clot, however could be septic emboli from endocarditis Could be from CPR/resuscitation and aortic arch plaque rupture? Dysphagia improved and right-sided weakness is improving. He had a video swallow on 08/28-able to advance diet to mildly thickened liquids and pured food Holding statin due to daptomycin therapy and also patient not able to take p.o. safely He has an allergy to IV contrast dye of hives but reports he has been able to tolerate it with Benadryl in the past-defer for now due to fragile status Carotid Dopplers negative Continue neuro checks and stroke scale every shift Lipid panel with very low cholesterol, hemoglobin A1c severely elevated at 11.0%-he is not on any diabetes medications-diabetes control addressed Neurology consult placed-thinks strokes due to sepsis, thinks that aspirin is not necessary but patient was on aspirin prior to admission for his previous cardiac issues so we will continue. Plan for DEO on 08/29 as per ID recommendation to look for endocarditis (5) Atrial fibrillation: Plan: Developed August 25 p.m. and is new onset for patient Heparin drip was started but subsequently discontinued due to bleeding from the freshly debrided sacral decubitus. Now on therapeutic Lovenox He was treated for Coumadin toxicity with parenteral vitamin K on August 25, and INR is down to 1.7 Coumadin 7.5 mg was administered x 1 on 08/26 but is now on hold due to inability to take p.o.-now can resume on 08/29 Continue Lovenox SQ 100 Mg every 12 hours for bridging Can now discontinue IV Lopressor 5 Mg IV every 6 hours and resume carvedilol at a lower dose of 6.25 Mg twice daily for rate control Monitor on telemetry (6) Respiratory failure: Plan: Acute hypoxic respiratory failure. He was extubated on the morning of August 24. Resolved. He is now on room air. (7) Aspiration pneumonia of both lower lobes: Plan: Suspected aspiration pneumonia in both lower lobes on admission but repeat chest x-ray is now clear. No need for antibiotic coverage for pneumonia at this point speech therapy following as he did aspirate at the bedside of thin liquids with water on 08/27 in the setting of newly diagnosed acute strokes Now with video swallow and he is aspirating thin liquids but is able to tolerate mildly thickened liquids and pured foods With increasing elevated white blood cell count and lower platelets but no fevers, no evidence of new infection at this time-follow CBC, BMP (8) Decubitus ulcer: Plan: Debrided on August 25. Some minor bleeding occurred with heparin drip on August 25 and heparin drip was placed on hold but now restarted-monitor for further bleeding Continue local care. Appreciate general surgery consultation and recommendations-appreciate bedside debridement WBC count is rising but remains afebrile Monitor (9) Chronic anticoagulation: Plan: With Coumadin. He has a mechanical valve and target INR is 2.5-3.5 As noted above, Coumadin on hold due to strict n.p.o. status, but resuming Continue on Lovenox bridging Follow INR (10) Uncontrolled diabetes mellitus with hyperglycemia: Plan: Type 2 diabetes. His hemoglobin A1c is severely elevated at 11.0% Patient's reports that he was started on Lantus 60 units at bedtime but she only gave it to him once and he became significantly hypoglycemic and delirious and she has been fearful to give it ever since. 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 Blood pressure is stable. Continue holding home amlodipine,clonidine, furosemide, but can resume carvedilol at a lower dose of 6.25 mg twice daily (13) Gout: Plan: Resume home allopurinol (14) BPH w urinary obs/LUTS: Plan: Resume home tamsulosin Davis catheter in place (15) Hypokalemia: Plan: Replace with IV potassium chloride again today Follow BMP and magnesium (16) History of aortic valve replacement with metallic valve: Plan: Noted, also with repair of aortic aneurysm at that time (17) Hyperlipidemia: Plan: Holding statin due to n.p.o. status and on daptomycin but would resume high intensity due to strokes (18) Peripheral neuropathy: Plan: With chronic pain, takes pregabalin, gabapentin, and oxycodone as needed Resume Lyrica 150 Mg p.o. twice daily Would not combine gabapentin with Lyrica-will continue to hold gabapentin Can take oxycodone as needed Plan DVT prophylaxis-Lovenox SQ Disposition-continue stay in PCU, slowly improving Discussed care with on phone on 08/28 Admission and Anticipated Discharge Date Admission Date: August 23, 2023 Subjective Patient much improved today with increased alertness and he is able to answer some questions for me such as to tell me his name and what his 's name is. He tells me yes that he is having some pain in his legs. He is still having great difficulty with expressive aphasia. The strength in his right side is improving and he was much better at following commands today. I discussed his care with cardiology as well as infectious disease Physical Exam Constitutional: WD/WN, vitals as above ENMT: Ears: no external ear abnormality Respiratory: normal respiratory effort; no cough Auscultation: no crackles and no wheezes Cardiovascular: Rate/Rhythm: regular rate and + irregularly irregular Heart Sounds: no murmur Extremities: + edema (Trace pitting edema legs bilaterally) Gastrointestinal (Abdomen): normal bowel sounds, soft, nontender, no hepatosplenomegaly Neurologic: + focal motor deficit (Left-sided hemipa resis, 4/5 strength throughout right side) and awake Speech / Cognition: + expressive aphasia (But improved from previous) Psychiatric: Orientation: alert, oriented to person and cooperative Results & Data Results & Data Vital Signs (Past 12 Hours) Vital Signs Temp Pulse Pulse Resp BP BP BP 08/29/23 11:49 94 H 121/70 08/29/23 11:24 91 H 174/103 H 08/29/23 11:22 36.5 C 91 H 18 174/103 H 08/29/23 11:01 08/29/23 07:59 79 08/29/23 07:56 36.3 C L 91 H 17 188/101 H 08/29/23 07:46 89 137/110 H 08/29/23 05:31 90 154/96 H 08/29/23 02:50 36.5 C 87 16 168/108 H Pulse Ox O2 Del Method 08/29/23 11:49 08/29/23 11:24 08/29/23 11:22 95 Room Air 08/29/23 11:01 Room Air 08/29/23 07:59 08/29/23 07:56 94 Room Air 08/29/23 07:46 08/29/23 05:31 08/29/23 02:50 93 Room Air Laboratory Results CBC, BMP, hemoglobin A1c, INR, lipid panel reviewed PG Care Time/CCT Total # of Minutes Spent Total Time Spent with Patient: Total time spent is greater than 50% in coordination of care (as documented) at patient's floor/unit and/or counseling patient: Coding Level of Care Code 09818 SUB INP/OBS CARE 3/50MIN Diagnoses Cardiac arrest I46.9 Acute metabolic encephalopathy G93.41 Bacteremia R78.81 Acute CVA (cerebrovascular accident) I63.9 Atrial fibrillation I48.91 Respiratory failure J96.00 Chronicity: acute Respiratory failure complication: unspecified whether with hypoxia or hypercapnia Aspiration pneumonia of both lower lobes J69.0 Decubitus ulcer L89.90 Chronic anticoagulation Z79.01 Uncontrolled diabetes mellitus with hyperglycemia E11.65 History of stroke Z86.73 Hypertension I10 Gout M10.9 BPH w urinary obs/LUTS N40.1; N13.8 Hypokalemia E87.6 History of aortic valve replacement with metallic valve Z95.4 Hyperlipidemia E78.5 Peripheral neuropathy G62.9 (6) Respiratory failure Chronicity: acute Respiratory failure complication: unspecified whether with hypoxia or hypercapnia Qualified Code(s): J96.00 - Acute respiratory failure, unspecified whether with hypoxia or hypercapnia
--- NOTE | 2023-08-29 14:23 | XCELERA ---
[id number]
--- NOTE | 2023-08-29 17:09 | Fluoroscopy Report ---
MODIFIED BARIUM SWALLOW CLINICAL HISTORY: assess for aspiration COMPARISON STUDY: None. FLUOROSCOPY TIME: 1.27 minutes. Ka, r: 18.2 mGy. TECHNIQUE: A modified barium swallow was performed in conjunction with Speech Pathology. The patient ingested varying consistencies of barium containing material. Video fluoroscopy was performed. FINDINGS: Premature spillage with delayed initiation of swallowing mechanism was noted with thin liqu ids by spoon. This resulted in tracheal aspiration. There is also tracheal aspiration with swallows o f thin liquids by cup. There was no aspiration with nectar thick liquids or pudding consistencies. IMPRESSION: 1. Tracheal aspiration with thin liquids, as described above. Premature spillage with delayed initiat ion of the swallowing mechanism. 2. No aspiration with nectar thick liquids or pudding consistencies. 3. Full recommendations by Speech pathology to follow. ACT 112: Negative or not required by law. Electronically signed by: Blaise Mckeon M.D. 08/29/2023 5:07 PM
[2023-08-29] MEDS: carvediloL 6.25 MG TAB PO SCH (21:59)
[2023-08-30 06:26] LABS: Basophils # (auto) 0.03 K/uL (0.00-0.20); Basophils % (auto) 0.2 %; Eosinophils % (auto) 0.8 %; Hematocrit (blood only) 31.6 % (42.0-52.0); Hemoglobin 10.1 g/dl (14.0-18.0); Immature Granulocytes # (auto) 0.28 K/uL (0.01-0.20); Immature Granulocytes % (auto) 2.2 %; Lymphocytes % (auto) 9.3 %; Mean Corpuscular Hemoglobin 26.2 pg (25.0-34.0); Mean Corpuscular Volume 81.9 fL (80.0-100.0); Mean Platelet Volume 11.7 fL (9.4-12.4); Monocytes # (auto) 1.15 K/uL (0.11-0.59); Monocytes % (auto) 8.9 %; Neutrophils # (auto) 10.21 K/uL (1.40-6.50); Neutrophils % (auto) 78.6 %; Platelet Count 149 K/uL (130-400); RDW Coefficient of Variation 14.5 % (11.5-14.5); RDW Standard Deviation 42.4 fL (36.4-46.3); Red Blood Count 3.86 M/uL (4.70-6.10); White Blood Count 12.97 K/ul (4.8-10.8)
[2023-08-30 06:38] LABS: BUN Creatinine Ratio 33.8 (10-20); Calcium 7.7 mg/dl (8.6-10.3); Creatinine Clr Calc Pharmacy 143.9 ml/min; Est GFR (Non-African American) 105.3 ml/min; Magnesium 1.4 mg/dl (1.7-2.4); Potassium 2.9 mmol/L (3.5-5.1)
[2023-08-30 06:46] LABS: Prothrombin Time 21.4 Seconds (9.0-12.0)
--- NOTE | 2023-08-30 09:31 | Pharmacy Report ---
- Date of Service August 30, 2023 - Pharmacy CVA/TIA Medication Review Medications to Prevent Stroke handout has been added to the patients discharge packet. Antiplatelet(s) * Aspirin 81 mg daily Cholesterol * Statin therapy currently on hold due to interaction with IV daptomycin DVT Prophylaxis * see below Therapeutic Anticoagulation * History of Afib/Aflutter noted * Lovenox 100 mg SQ BID ordered - bridging to warfarin Type 2 Diabetes * Patient has T2DM, but per provider a diabetes medication with proven CVD benefit will be deferred to their outpatient provider due to familiarity with risks/benefits of such therapies. "Medications to prevent stroke" handout has already been added to the patient's discharge packet, which instructs the patient to follow up with their outpatient provider to evaluate which diabetes medication with proven CVD benefit is best for them
[2023-08-30] MEDS: ASPIRIN 81 MG ECTAB PO SCH (09:34)
[2023-08-30] MEDS: oxyCODONE HCL IR 5 MG TAB (IMMEDIATE RELEASE) PO PRN (09:57)
[2023-08-30] MEDS: MAGNESIUM SULFATE / D5W 1 GM/100 ML BAG IV SCH (09:57)
[2023-08-30] MEDS: POTASSIUM CHLORIDE / WTR 10 MEQ/100 ML PLCT IV SCH (09:57)
--- NOTE | 2023-08-30 12:30 | Hospitalist Progress Note ---
Date of Service August 30, 2023 Assessment & Plan (1) Cardiac arrest: Plan: Outside of the hospital. The patient was found down and resuscitation efforts were successful. PEA arrest secondary to sepsis Echo negative for regional wall motion abnormalities. Normal ejection fraction. Continue telemetry-remains in Afib. Cardiology consultation appreciated. They did not feel this was a primary cardiac event especially since he has evidence of sepsis with suspected septic shock. Troponin levels are mildly elevated in 200s but no evidence of acute coronary syndrome on EKG. He was on a ventilator and on pressors initially, extubated on 08/24 Was then diuresed with IV Lasix-discontinued on 08/27 IV hydrocortisone now weaned off Treating for septicemia as below (2) Acute metabolic encephalopathy: Plan: Started around 08/25 as per patient's but worsened overnight on 08/26 and 08/27 with increased weakness, decreased responsiveness, mostly nonverbal Lactate elevated but otherwise procalcitonin trending downward, renal failure is resolved, some hypokalemia but not severe, sepsis is improving, afebrile Initially thought could be withdrawal from not receiving home Lyrica, gabapentin, or oxycodone CT head negative, but ordered MRI brain which showed multiple acute strokes- likely culprit Much improved since 08/28 and is now able to verbalize things and is much more alert and awake, able to participate in video swallow study and started oral feeds Right sided weakness is improved and he is speaking more each day Treating strokes Can give IV morphine 2 mg every 4 hours as needed-patient reports he usually takes 15-30 mg oxycodone per day when pain in his legs is severe Hopefully this will continue to improve with supportive care and improvement over time from his strokes dc IV fluid now that is taking po Continue antibiotic therapy for bacteremia Started thiamine 200 mg IV twice daily as he has had no nutrition for 6 to 7 days Resumed home Lyrica (3) Bacteremia: Plan: With septicemia and septic shock-febrile, with leukocytosis, septic shock and PEA arrest on arrival Aerococcus viridans and Proteus isolated in blood cultures. There is also coagulase-negative Staphylococcus which is likely a contaminant. His urine culture also grew Proteus initially and again on 08/27--> will remove Davis catheter as likely still stuck to tubing Aerococcus is also most commonly a organism as per ID. Urine is most likely source but could be from sacral wound?---> check sacral wound swab Appreciate ID consultation DEO is indicated given multiple embolic appearing strokes-could be septic emboli-consult cardiology for DEO-plan was for 08/29 but due to lethargy from po oxycodone--> cancelled DEO for now--> hopeful for DEO tomorrow Repeat blood cultures on 08/25 and 08/27 remain no growth to date Repeat urine culture on 08/27 with Proteus despite ceftriaxone-removing Davis Continue ceftriaxone for Proteus. Continue daptomycin for coverage for the Aerococcus Microbiology lab sent out sensitivities to Aerococcus which will need to be followed Follow CBC, CMP, CK (4) Acute CVA (cerebrovascular accident): Plan: Brain MRI ordered on 08/27 due to ongoing expressive aphasia and metabolic encephalopathy, found multiple acute strokes-2 subcentimeter in right frontal and parietal lobes, 2 additional questionable punctate acute infarcts in left occipital and left cerebellar hemisphere He was only off of anticoagulation for 1-2 days at the most during this hospitalization after his heparin drip was discontinued for sacral wound bleeding-heparin drip was resumed but due to compatibility issues and poor IV access, was switched to Lovenox SQ 1 mg/kg twice daily. Seems less likely to be cardioembolic from clot, however could be septic emboli from endocarditis Could be from CPR/resuscitation and aortic arch plaque rupture? Dysphagia improved and right-sided weakness is improving. He had a video swallow on 08/28-able to advance diet to mildly thickened liquids and pured food Holding statin due to daptomycin therapy and also patient not able to take p.o. safely He has an allergy to IV contrast dye of hives but reports he has been able to tolerate it with Benadryl in the past-defer CTA head/neck/chest for now Carotid Dopplers negative Continue neuro checks and stroke scale every shift Lipid panel with very low cholesterol, hemoglobin A1c severely elevated at 11.0%-he is not on any diabetes medications-diabetes control addressed Neurology consult placed-thinks strokes due to sepsis, thinks that aspirin is not necessary but patient was on aspirin prior to admission for his previous cardiac issues so we will continue. Plan for DEO on 08/30 as per ID recommendation to look for endocarditis and TIFFANIE clot (5) Atrial fibrillation: Plan: Developed August 25 p.m. and is new onset for patient Heparin drip was started but subsequently discontinued due to bleeding from the freshly debrided sacral decubitus. Now on therapeutic Lovenox He was treated for Coumadin toxicity with parenteral vitamin K on August 25, and INR was subtherapeutic Coumadin 7.5 mg was administered x 1 on 08/26 but then held due to NPO status--> resumed 08/29 as now able to take po Continue Lovenox SQ 100 Mg every 12 hours for bridging-INR 2.0 today so will continue bridging until INR 2.5 Resumed carvedilol at a lower dose of 6.25 Mg twice daily for rate control Monitor on telemetry (6) Respiratory failure: Plan: Acute hypoxic respiratory failure. He was extubated on the morning of August 24. Resolved. He is now on room air. (7) Aspiration pneumonia of both lower lobes: Plan: Suspected aspiration pneumonia in both lower lobes on admission but repeat chest x-ray is now clear. No need for antibiotic coverage for pneumonia at this point speech therapy following as he did aspirate at the bedside of thin liquids with water on 08/27 in the setting of newly diagnosed acute strokes Now with video swallow and he is aspirating thin liquids but is able to tolerate mildly thickened liquids and pured foods With improving leukocytosis, no fevers, no evidence of new infection at this time Had some gurgling requiring deep NG suctioning on 08/29, 2 hours after having small sip of thickened water with pills-no hypoxia, improved after suctioning (8) Decubitus ulcer: Plan: Debrided on August 25. Some minor bleeding occurred with heparin drip on August 25 and heparin drip was placed on hold but now back on anticoagulation--> monitor for further bleeding Continue local care. Appreciate general surgery consultation and recommendations-appreciate bedside debridement Appears blackened in color on 08/29 but Surgeon used silver nitrate to treat the bleeding Wound cx swab taken 08/29-follow (9) Chronic anticoagulation: Plan: With Coumadin. He has a mechanical valve and target INR is 2.5-3.5 As noted above, Coumadin resumed, on bridging Lovenox Follow INR (10) Uncontrolled diabetes mellitus with hyperglycemia: Plan: Type 2 diabetes. His hemoglobin A1c is severely elevated at 11.0% Patient's reports that he was started on Lantus 60 units at bedtime but she only gave it to him once and he became significantly hypoglycemic and delirious and she has been fearful to give it ever since. 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 Blood pressure is stable. Continue holding home amlodipine,clonidine, furosemide, but resumed carvedilol at a lower dose of 6.25 mg twice daily (13) Gout: Plan: Continue home allopurinol (14) BPH w urinary obs/LUTS: Plan: COntinue home tamsulosin Davis catheter in place (15) Hypokalemia: Plan: Replace with IV potassium chloride again today and IV magnesium for low mag Follow BMP and magnesium (16) History of aortic valve replacement with metallic valve: Plan: Noted, also with repair of aortic aneurysm at that time (17) Hyperlipidemia: Plan: Holding statin due to n.p.o. status and on daptomycin but would resume at high intensity dose due to strokes (18) Peripheral neuropathy: Plan: With chronic pain, takes pregabalin, gabapentin, and oxycodone as needed Resumed Lyrica 150 Mg p.o. twice daily Would not combine gabapentin with Lyrica-will continue to hold gabapentin Can take oxycodone as needed but this does make him drowsy Plan DVT prophylaxis-Lovenox SQ Disposition-continue stay in PCU, slowly improving Discussed care with on phone on 08/28 Admission and Anticipated Discharge Date Admission Date: August 23, 2023 Subjective Pt was apparently much more awake , alert, and conversive this AM but was c/o pain in his lower back and legs. He received oxycodone for pain so was more drowsy when I saw him at noon. He also required some deep NG suctioning by RT for upper airway gurgling. Not hypoxic, vitals stable. He shook his head yes that he was agreeable to the DEO. I spoke with Cardiology about his care as well as ID. Tele with rate controlled Afib Physical Exam Constitutional: WD/WN, vitals as above ENMT: Ears: no external ear abnormality Respiratory: normal respiratory effort; no cough Auscultation: lungs clear to auscultation bilaterally (post-deep suction) Cardiovascular: Rate/Rhythm: regular rate and + irregularly irregular Heart Sounds: no murmur Extremities: + edema (Trace pitting edema legs bilaterally) Gastrointestinal (Abdomen): normal bowel sounds, soft, nontender, no hepatosplenomegaly Skin: sacral decubitus, large, blackened eschar but also previously treated with silver nitrate, no drainage, no significant erythema surrounding Neurologic: + focal motor deficit (left hemiparesis, 4/5 strength in RUE/RLE) Psychiatric: Orientation: alert, oriented to person and cooperative Genitourinary: Davis cath in place with clear dark yellow urine Results & Data Results & Data Vital Signs (Past 12 Hours) Vital Signs Temp Pulse Pulse Resp BP BP Pulse Ox 08/30/23 11:31 36.3 C L 98 H 22 101/61 90 08/30/23 10:53 08/30/23 07:45 86 08/30/23 07:41 36.4 C L 73 20 184/73 H 96 08/30/23 03:00 36.6 C 91 H 18 108/74 96 O2 Del Method 08/30/23 11:31 Room Air 08/30/23 10:53 Room Air 08/30/23 07:45 08/30/23 07:41 Room Air 08/30/23 03:00 Room Air Laboratory Results CBC, BMP,magnesium, INR, urin cx from 08/27 reviewed PG Care Time/CCT Total # of Minutes Spent Total Time Spent with Patient: Total time spent is greater than 50% in coordination of care (as documented) at patient's floor/unit and/or counseling patient: Coding Level of Care Code 38866 SUB INP/OBS CARE 3/50MIN Diagnoses Cardiac arrest I46.9 Acute metabolic encephalopathy G93.41 Bacteremia R78.81 Acute CVA (cerebrovascular accident) I63.9 Atrial fibrillation I48.91 Respiratory failure J96.00 Chronicity: acute Respiratory failure complication: unspecified whether with hypoxia or hypercapnia Aspiration pneumonia of both lower lobes J69.0 Decubitus ulcer L89.90 Chronic anticoagulation Z79.01 Uncontrolled diabetes mellitus with hyperglycemia E11.65 History of stroke Z86.73 Hypertension I10 Gout M10.9 BPH w urinary obs/LUTS N40.1; N13.8 Hypokalemia E87.6 History of aortic valve replacement with metallic valve Z95.4 Hyperlipidemia E78.5 Peripheral neuropathy G62.9 (6) Respiratory failure Chronicity: acute Respiratory failure complication: unspecified whether with hypoxia or hypercapnia Qualified Code(s): J96.00 - Acute respiratory failure, unspecified whether with hypoxia or hypercapnia
--- NOTE | 2023-08-30 12:56 | Procedure Note ---
Procedure Note Date of Service August 30, 2023 Note Procedure: Transesophageal echocardiogram Indication: Bacteremia and a mechanical AVR Protocol: The patient was brought to the cardiac catheterization holding area. He was minimally responsive and pulling at the IV tubing. He is clearly not appropriate for an elective procedure. There were 3 members of the Anesthesia team present and they all refused to sedate the patient. The transesophageal echocardiogram was canceled. Coding
[2023-08-30] MEDS: PROPOFOL IV EMULSION 10 MG/ML 20 ML VIAL IV ONE (13:23)
[2023-08-30] MEDS: SODIUM CHLORIDE 0.9% 500 ML IV ONE (13:47)
[2023-08-30] MEDS: HYDROCORTISONE SOD SUCCINATE 100 MG/2 ML VIAL IV ONE (14:41)
[2023-08-30] MEDS: NOREPINEPHRINE/D5W 4 MG/250 ML IV ONE (14:42)
[2023-08-30] MEDS ORDERED: STAT IV Infusion **Titration per Protocol STA ×3 (14:45→15:34)
[2023-08-30] MEDS: NOREPINEPHRINE/D5W 4 MG/250 ML PLCT IV SCH (15:00)
--- NOTE | 2023-08-30 15:08 | Infectious Disease Progress Nt ---
Date of Service August 30, 2023 Assessment & Plan (1) Acute metabolic encephalopathy: (2) Septic shock: (3) Cardiac arrest: (4) Bacteremia: (5) UTI (urinary tract infection): Plan 57yo M with h/o uncontrolled DM, HTN, HLD, peripheral neuropathy, BPH with LUTS, GERD, gout, stroke with residual left hemiparesis, bicuspid AV s/p mechanical AVR 08/2011 on chronic anticoagulation who presented on 08/22 after [id number] cardiac PEA arrest with ROSC obtained after about 5 to 7 minutes. Intubated in the ED and started on pressors. Found to be febrile up to 40.7. Initial labs with WBC 19.63>>22.72>14.4>19. Cr 2.70>1.01 Elevated AST/ALT, troponin, and lactate. PCT > 100. UA > [address] head negative, CT chest with multifocal pneumonia at the bilateral bases. CTAP with severe bladder wall thickening with Davis present. He was admitted to the ICU and started on broad spectrum abx. TTE limited, normal LV function, AV sclerosis. CXR with left pleural effusion. Thoracentesis deferred due to elevated INR. Extubated 08/24. Noted to have a sacral decubitus ulcer and seen by surgery, bedside debridement was done on 08/25. Last temp on 08/22, currently on RA. CXR from 08/24 with bl pleural effusions L>R, left consolidation. Altered on 08/27. UA done which had > 50 WBC, UCx P mirabilis. BCx ngtd. CTH negative, CXR without consolidation. MRI with acute infarcts in R frontal and parietal lobes, questionable infarcts in left occipital and cerebellar hemisphere. Repeat TTE negative for vegetations on mitral, tricuspid, or pulmonic valves. Course c/b PEA arrest on 08/29 and now being transferred to ICU. Per primary team, some c/f aspiration earlier when he was taking his meds. Unable to get DEO earlier due to mental status. CXR with right basilar linear densities favor subsegmental atelectasis. Given acute decompensation, would broaden antibiotics empirically for now. Dapto should be changed to vancomycin to include lung coverage, this should be adequate for Aerococcus as well. Some concerns for aspiration earlier today, flagyl has been added. CTX broadened to cefepime. Note patient with multiple infarcts in multiple hemispheres on MRI. Its possible this could be related to his recent initial cardiac arrest, however, in the presence of Aerococcus bacteremia which has been reported in endocarditis, along with his mechanical AV valve, cardiac vegetations will need to be ruled out with DEO when he is stable for this study. For his BCx with P mirabilis, this is likely from his UTI. CONS is likely a contaminant and would not treat. # Cardiac arrest # Multiple infarcts on MRI brain # Bacteremia 2/2 P mirabilis and Aerococcus viridans # UTI 2/2 P mirabilis # Aspiration PNA from admission, ?recurrence - CXR with atelectasis # Decubitus ulcer s/p bedside debridement cx were sent # H/o DM # PCN allergy - dapto changed to vancomycin pharmacy dosed - CTX changed to cefepime 2g IV q8h - flagyl has been added - DEO when stable - f/u all cultures blood cx, sputum cx, sacral cx ID will continue to follow. If questions or concerns, contact Infectious Disease Call Center . Becki Sheets MD [facility], Division of Infectious Diseases [employer]: [phone] Admission and Anticipated Discharge Date Admission Date: August 23, 2023 Subjective This patient recommendation is based on a telemedicine consult request which was completed asynchronously through chart review and information provided by the primary physician. The patient was not seen or examined today. The evaluation is consultative in nature and all patient care and treatment decisions can either be accepted or rejected by the patient's primary hospital-based treating physician using their own independent medical judgment for their patient. Time Spent Reviewing Chart: 31+ minutes Patient with AMS today and PEA arrest. Results & Data Vital Signs (Past 12 Hours) Vital Signs Temp Pulse Pulse Resp BP BP Pulse Ox 08/30/23 13:32 36.4 C L 89 18 82/60 L 98 08/30/23 11:31 36.3 C L 98 H 22 101/61 90 08/30/23 10:53 08/30/23 07:45 86 08/30/23 07:41 36.4 C L 73 20 184/73 H 96 O2 Del Method 08/30/23 13:32 Room Air 08/30/23 11:31 Room Air 08/30/23 10:53 Room Air 08/30/23 07:45 08/30/23 07:41 Room Air
[2023-08-30] MEDS: EPINEPHrine/NSS 4 MG/254 ML BAG IV SCH (15:15)
[2023-08-30 15:23] LABS: iSTAT Art Bld Gas pCO2 Correct 36 mmHg (35-46); iSTAT Art Bld Gas pH Corrected 7.478 (7.35-7.45); iSTAT Arterial Blood Gas HCO3 27 meg/L (19-24); iSTAT Arterial Blood Gas pCO2 36 mmHg (35-46); iSTAT Arterial Blood Gas pH 7.48 (7.35-7.45); iSTAT Arterial Blood Gas pO2 181 mmHg (80-95); iSTAT Arterial Blood Gas pO2 C 180; iSTAT Carbon Dioxide 28 mmol/L (24-31); iSTAT Hematocrit 22 % (42-52); iSTAT Hemoglobin 7.5 g/dl (14.0-18.0); iSTAT Potassium 3.3 mmol/L (3.3-5.0); iSTAT Site R Radial; iSTAT Sodium 141 mmol/L (135-144)
--- NOTE | 2023-08-30 15:27 | Critical Care Consultation ---
Date of Consultation August 30, 2023 Assessment & Plan (1) Septic shock: (2) Respiratory failure: (3) Cardiac arrest: (4) Uncontrolled diabetes mellitus with hyperglycemia: (5) History of stroke: (6) Chronic anticoagulation: (7) Sepsis with acute organ dysfunction and septic shock: Plan Impression:: 57-year-old male with severe sepsis with septic shock secondary to Proteus UTI/bacteremia with prior history of stroke admitted with out of hospital cardiac arrest- PEA on arrival. Patient was initially in the ICU and then downgraded. He had another hypotensive and PEA arrest on 08/30/2023. Sent to ICU for further management Recommendations Neuro - -- Encephalopathy secondary to acute CVA Likely embolic stroke, appreciated on MRI 08/30/23 MRI of the brain 08/28/2023: 2 subcentimeter acute infarcts in the right frontal and parietal lobe. Old infarcts in the right thalamus in the cerebral hemisphere. Atrophy and microvascular ischemic changes -- History of CVA in the past with left hemiparesis Cardiac - -- PEA Etiology seems to be septic shock He was restarted on Coreg (at a lower dose), Lyrica and Flomax in the last 24 hours Will repeat blood cultures Continue with vasopressor support to keep MAP greater than 65 EKG 08/30/2023 1534: A-fib, right bundle branch block, left axis deviation, no ST-T wave changes appreciated -- History of mechanical heart valve On warfarin at home Currently on Lovenox --A-fib On warfarin at home Respiratory - -- VDRF for airway protection secondary to cardiac arrest Continue with ventilatory support Keep RASS -1 Daily sedation holidays and SBT's GI - -- Aspiration Patient failed swallow eval 08/29/2023 RENAL/LYTES -- Monitor BUNs/creatinine Avoid nephrotoxic medications --History of gout On allopurinol ENDO - -- Diabetes type 2 ICU hypoglycemia protocol HEME - --Normocytic anemia Monitor H&H ID - -- Proteus mirabilis and Aerococcus viridans Has been on daptomycin as well as Rocephin Will change Rocephin to cefepime and add Flagyl because of aspiration --Decubitus ulcer S/p debridement on the previous ICU visit --Prophylaxis VTE: Lovenox GI: Pantoprazole Lines: Left femoral TLC, left femoral radial, ETT, Davis changed 08/30/2023 Diet: N.p.o. Plan: Strict in and out ABG 7.48/36/181 on oxy mask 15 L Change Rocephin to cefepime and add Flagyl. Continue with daptomycin. Patient's nasal MRSA was negative in the past, no need to add vancomycin coverage for pneumonia which is likely aspiration if anything 200 mg of hydrocortisone was given to the patient. Patient was on hydrocortisone when he was in the ICU previous visit. Will gradually taper it off again. Continue with vasopressor support to keep MAP greater than 65 There has been drop in hemoglobin compared to his baseline. Hold Lovenox, CT abdomen pelvis without contrast to rule out retroperitoneal bleed I have personally spent 68 minutes of critical care time in the direct management of this patient. This is a life/limb threatening event. This includes time spent evaluating patient, direct bedside care, chart review, placing orders, interpretation of diagnostic studies, discussion with consultants, patient, and family members, as well as other required patient management activities. This time is exclusive of all separately billable procedures, and teaching time and separate from and in addition to any other critical care service time. Please note the above document was generated using voice recognition software. It may contain grammatical, syntax or spelling errors. History of Present Illness Attending Physician: Gely Rubi MD History of Present Illness 57-year-old male who was initially admitted to the hospital postcardiac arrest and intubated in the ICU. He was successfully extubated and sent on the floor Past medical history: Diabetes type 2, gout, hypertension, A-fib, mechanical heart valve on warfarin On the floor today patient was again found to be hypotensive and code purple was called which was transitioned to CODE BLUE. Patient got 1 epi during the code and another 2 epi after ROSC and he was started on Levophed drip. Signout was given by Dr. Rubi. Patient was restarted on Coreg, Flomax, his Lyrica as well as chronic opioids which he takes in the last 12 hours. Patient's systolic blood pressure was in the 50s for which propofol was called but he went into PEA and CODE BLUE was called. Patient was nodding his head yes and no after ROSC. Patient was transferred to the ICU when I again saw him he was more somnolent and was requiring very high need of pressors. Plan to intubate was made for altered mental status as well as airway protection. He has been getting antibiotics and has been following up with ID for Proteus mirabilis bacteremia as well as Aerococcus viridans He has been on Rocephin as well as daptomycin. He was supposed to have DEO done but he was more lethargic and it was deferred Allergies Allergy/AdvReac Type Severity Reaction Status Date / Time bee venom protein (honey bee) Allergy Unknown Verified 08/23/23 20:23 Iodinated Contrast Media Allergy Hives Verified 08/23/23 20:23 Penicillins Allergy Hives Verified 08/23/23 20:23 Home Medications Medication Instructions Recorded Confirmed Type allopurinol 100 mg tablet 100 mg PO QAM 08/23/23 08/23/23 History amlodipine 10 mg tablet 10 mg PO QAM 08/23/23 08/23/23 History aspirin 81 mg chewable tablet 81 mg PO DAILY 08/23/23 08/23/23 History (Aspirin Childrens) atorvastatin 10 mg tablet 10 mg PO HS 08/23/23 08/23/23 History carvedilol 25 mg tablet 25 mg PO BID 08/23/23 08/23/23 History clonidine HCl 0.2 mg tablet 0.2 mg PO TID 08/23/23 08/23/23 History famotidine 40 mg tablet 40 mg PO DAILYBB 08/23/23 08/23/23 History furosemide 40 mg tablet 20 mg PO Q OTHER DAY 08/23/23 08/23/23 History gabapentin 300 mg capsule 300 mg PO TID 08/23/23 08/23/23 History montelukast 10 mg tablet 10 mg PO DAILY 08/23/23 08/23/23 History pregabalin 150 mg capsule 150 mg PO BID 08/23/23 08/23/23 History tamsulosin 0.4 mg capsule 0.4 mg PO QAM 08/23/23 08/23/23 History warfarin 1 mg tablet 1 mg PO DAILY 08/23/23 08/23/23 History warfarin 5 mg tablet 5 mg PO DAILY 08/23/23 08/23/23 History oxycodone 15 mg tablet 15 mg PO Q4 PRN Severe Pain (Scale 08/28/23 08/28/23 History Score 7-10) Patient History Medical History (Updated 04/22/24 @ 16:53 by Gely Rubi MD) Acute CVA (cerebrovascular accident) GERD (gastroesophageal reflux disease) Hyperlipidemia Peripheral neuropathy Gout Hypertension BPH w urinary obs/LUTS Chronic anticoagulation History of stroke Social History Smoking Status: Never smoker Tobacco Type: Smokeless Tobacco (Dip or Chew) Second Hand Exposure: No; Do You Dip or Chew Tobacco: Yes; Tobacco Cessation Education Requested by Patient: No Hx Alcohol Use: No Hx Substance Use: No Preferred Language: Sinhala Communication Ability: Unable Flight Director Required: No Beliefs That Will Affect Care: None Current Living Situation: Spouse Other Information That Helps Us Care for You: No Feels Safe at Home: Yes Safety Concerns: Feels Safe At This Time Assistive Devices: Mechanical Lift and Wheelchair Review of Systems 2 Review of Systems: Unobtainable due to cognitive status Physical Exam 2 Physical Exam: Constitutional: No acute distress HEENT: PERRLA Respiratory system: Decreased air entry bilaterally, no wheeze, no rhonchi, positive crackles bilaterally CVS: S1-S2 positive, clinical heart sounds Abdomen: Soft, nontender, nondistended, positive bowel sounds x4 Extremities: + 1 pulses bilaterally radialis/ dorsalis pedis, no cyanosis, +1 pitting edema bilateral lower extremity, +1 pitting edema left upper extremity Neuro: Somnolent but easily arousable Psych: Unable to assess G/U: Positive Davis Skin: no rashes, warm and dry Lymphatic: no cervical or axillary lymphadenopathy Results & Data Results & Data Vital Signs (Past 12 Hours) Vital Signs Temp Pulse Pulse Resp BP BP BP 08/30/23 15:10 135/101 H 08/30/23 15:10 36.8 C 141 H 18 08/30/23 15:09 36.8 C 128 H 18 08/30/23 15:09 137/105 H 08/30/23 15:06 100/79 08/30/23 15:06 36.8 C 118 H 20 08/30/23 15:04 78/49 L 08/30/23 15:04 36.8 C 124 H 20 08/30/23 15:02 84/43 L 08/30/23 15:02 36.8 C 109 H 22 08/30/23 15:01 55/31 L 08/30/23 15:01 36.8 C 113 H 20 08/30/23 15:00 36.8 C 114 H 19 08/30/23 15:00 63/31 L 08/30/23 14:54 36.8 C 108 H 31 H 08/30/23 14:54 86/67 L 08/30/23 14:52 36.8 C 111 H 29 H 08/30/23 14:52 87/70 L 08/30/23 14:50 36.8 C 103 H 28 H 08/30/23 14:50 100/65 08/30/23 14:49 36.8 C 106 H 26 H 08/30/23 14:49 90/64 L 08/30/23 14:47 104/81 08/30/23 14:47 36.8 C 97 H 29 H 08/30/23 14:45 94/79 L 08/30/23 14:45 36.8 C 110 H 26 H 08/30/23 14:40 36.7 C 103 H 27 H 08/30/23 14:40 106/73 08/30/23 14:37 102 H 27 H 08/30/23 13:32 36.4 C L 89 18 82/60 L 08/30/23 11:31 36.3 C L 98 H 22 101/61 08/30/23 10:53 08/30/23 07:45 86 08/30/23 07:41 36.4 C L 73 20 184/73 H Pulse Ox O2 Del Method 08/30/23 15:10 08/30/23 15:10 100 08/30/23 15:09 100 08/30/23 15:09 08/30/23 15:06 08/30/23 15:06 100 08/30/23 15:04 08/30/23 15:04 100 08/30/23 15:02 08/30/23 15:02 100 08/30/23 15:01 08/30/23 15:01 98 08/30/23 15:00 98 08/30/23 15:00 08/30/23 14:54 100 08/30/23 14:54 08/30/23 14:52 100 08/30/23 14:52 08/30/23 14:50 100 08/30/23 14:50 08/30/23 14:49 94 04/24/24 14:49 08/30/23 14:47 08/30/23 14:47 100 08/30/23 14:45 08/30/23 14:45 100 08/30/23 14:40 65 L 08/30/23 14:40 08/30/23 14:37 61 L 08/30/23 13:32 98 Room Air 08/30/23 11:31 90 Room Air 08/30/23 10:53 Room Air 08/30/23 07:45 08/30/23 07:41 96 Room Air Laboratory Results 08/30/23 05:16 08/30/23 05:16 Coding Level of Care Code 21689 CRITICAL CARE 1ST 30-74M Diagnoses Septic shock A41.9; R65.21 Respiratory failure J96.00 Chronicity: acute Respiratory failure complication: unspecified whether with hypoxia or hypercapnia Cardiac arrest I46.9 Uncontrolled diabetes mellitus with hyperglycemia E11.65 History of stroke Z86.73 Chronic anticoagulation Z79.01 Sepsis with acute organ dysfunction and septic shock A41.9; R65.21 (2) Respiratory failure Chronicity: acute Respiratory failure complication: unspecified whether with hypoxia or hypercapnia Qualified Code(s): J96.00 - Acute respiratory failure, unspecified whether with hypoxia or hypercapnia
[2023-08-30] MEDS ORDERED: PROPOFOL BOLUS FROM BAG IV PRN (15:34)
[2023-08-30] MEDS ORDERED: fentaNYL BOLUS from BAG IV PRN (15:34)
[2023-08-30] MEDS: propofoL 1,000 MG/100 ML VIAL IV SCH (15:44)
[2023-08-30] MEDS: fentaNYL citrate PF 100 MCG/2 ML VIAL ONE (15:45)
[2023-08-30] MEDS: RAPID SEQUENCE INDUCTION BAG ONE (15:45)
[2023-08-30] MEDS: HYDROCORTISONE SOD 100 MG in SYRINGE 0 ML IV STA (15:46)
[2023-08-30] MEDS: metroNIDAZOLE 500 MG/100 ML BAG IV SCH (15:48)
[2023-08-30 15:50] LABS: Basophils # (auto) 0.02 K/uL (0.00-0.20); Basophils % (auto) 0.1 %; Eosinophils # (auto) 0.09 K/uL (0.00-0.50); Eosinophils % (auto) 0.5 %; Hematocrit (blood only) 24.3 % (42.0-52.0); Hemoglobin 7.7 g/dl (14.0-18.0); Immature Granulocytes # (auto) 0.86 K/uL (0.01-0.20); Immature Granulocytes % (auto) 4.6 %; Lymphocytes # (auto) 2.34 K/uL (1.20-3.40); Lymphocytes % (auto) 12.6 %; Mean Corpuscular Hemoglobin 26.3 pg (25.0-34.0); Mean Corpuscular Hgb Conc 31.7 g/dL (32.0-36.0); Mean Corpuscular Volume 82.9 fL (80.0-100.0); Mean Platelet Volume 11.6 fL (9.4-12.4); Monocytes # (auto) 1.72 K/uL (0.11-0.59); Monocytes % (auto) 9.2 %; Neutrophils # (auto) 13.58 K/uL (1.40-6.50); Platelet Count 172 K/uL (130-400); RDW Coefficient of Variation 14.2 % (11.5-14.5); RDW Standard Deviation 42.5 fL (36.4-46.3); Red Blood Count 2.93 M/uL (4.70-6.10); White Blood Count 18.61 K/ul (4.8-10.8)
[2023-08-30] MEDS: fentaNYL citrate 2,500 MCG/250 ML BAG IV SCH (15:52)
[2023-08-30] MEDS ORDERED: VANCOMYCIN CONSULT ACTIVE PRN (15:58)
[2023-08-30] MEDS ORDERED: WARFARIN SOD 7.5 MG TAB PO SCH (16:00)
--- NOTE | 2023-08-30 16:02 | XRay Report ---
XR chest 1V portable HISTORY: Respiratory failure/arrest. COMPARISON: Chest 08/28/2023. FINDINGS: Endotracheal tube terminates approximately 3.4 cm from the danette. The nasogastric tube ter minates in the proximal stomach. There are low lung volumes. No pneumothorax. No pleural effusions. S mall right basilar linear densities favor subsegmental atelectasis. Prior cholecystectomy. No evidenc e for pulmonary edema. No acute fractures. The heart remains mildly enlarged. Poststernotomy changes and a cardiac valve prosthesis. IMPRESSION: 1. Satisfactory support line placement. 2. Right basilar linear densities favor subsegmental atelectasis. 3. Stable cardiomegaly. ACT 112: Negative or not required by law. Electronically signed by: Ulises Grant M.D. 08/30/2023 4:00 PM
[2023-08-30 16:10] LABS: Albumin Globulin Ratio 0.9 (0.9-2); Albumin Level 2.2 gm/dl (3.4-5.0); BUN Creatinine Ratio 28.9 (10-20); Bilirubin,Total 0.9 mg/dl (0.2-1.0); Calcium 8.9 mg/dl (8.6-10.3); Creatinine Clr Calc Pharmacy 108.7 ml/min; Est GFR (African American) 108.7 ml/min; Est GFR (Non-African American) 93.8 ml/min; Globulin 2.4 gm/dl (2.5-4.0); Magnesium 1.9 mg/dl (1.7-2.4); Phosphorus 4.1 mg/dl (2.5-4.9); Potassium 3.5 mmol/L (3.5-5.1); Total Protein 4.6 gm/dl (6.0-8.3); Troponin I High Sensitivity 30.5 pg/ml (0-20)
--- NOTE | 2023-08-30 16:12 | Procedure Note ---
Procedure Note Date of Service August 30, 2023 Note INTUBATION PROCEDURE NOTE: Attending: Dr Jordan Clark MD Patient was evaluated and plan to intubate was made for altered mental status and airway protection. Sedative agent used: Etomidate 20 mg, lidocaine 100 mg Paralysis agent used: Rocuronium 50 mg Emergent consent was implied given patients rapidly declining clinical status and need for airway protection. The patient was prepared in the appropriate fashion. The patient was easily pre-oxygenated by using [id number]-[id number] ventilation. With help of glide scope grade 2 vocal cords were visualized and 7.5 Ecu[place]orean ETT was introduced on first attempt to 24 cm at the lip. The stylette was removed and balloon was inflated with 10mL of air. Appropriate Colorimetric change was appreciated for at least 10 breaths. Bilateral chest rise and breath sounds were appreciated without air sounds in the epigastrium. Patient tolerated the procedure well and there were no immediate complications. Chest Xray to follow for confirming placement. Coding CPT Codes Resuscitation - Resuscitation: 34457 Endotracheal Intubation, emergency ([id number]) [facility] [place] Procedure Codes (Charges) Resuscitation Resuscitation: 88225 Endotracheal Intubation, emergency
[2023-08-30 16:13] LABS: RBC Morphology Unremarkable
[2023-08-30] MEDS ORDERED: ETOMIDATE 2 MG/ML 20 ML VIAL IV ONE (16:31)
[2023-08-30] MEDS ORDERED: LIDOCAINE 2% 20 MG/ML 5 ML SYR IV ONE (16:31)
[2023-08-30] MEDS ORDERED: ROCURONIUM BROMIDE 10 MG/ML 5 ML VIAL IV ONE (16:31)
--- NOTE | 2023-08-30 16:35 | Electrocardiogram Report ---
Test Reason : Blood Pressure : / mmHG Vent. Rate : 112 BPM Atrial Rate : 087 BPM P-R Int : 000 ms QRS Dur : 140 ms QT Int : 414 ms P-R-T Axes : 000 -70 091 degrees QTc Int : 565 ms Atrial fibrillation with rapid ventricular response with premature ventricular or aberrantly conducte d complexes Left axis deviation Right bundle branch block Septal infarct , age undetermined T wave abnormality, consider lateral ischemia Abnormal ECG When compared with ECG of 26-AUG-2023 23:00, No significant change was found Confirmed by Aris German ([id number]) on 08/30/2023 4:35:21 PM Referred By: REFERRED SELF Confirmed By:Aris German
[2023-08-30] MEDS: VANCOMYCIN HCL 2,000 MG in SODIUM CHLORIDE 0.9% 500 ML IV ONE (16:40)
[2023-08-30 16:43] LABS: iSTAT Art Bld Gas pCO2 Correct 26 mmHg (35-46); iSTAT Art Bld Gas pH Corrected 7.546 (7.35-7.45); iSTAT Arterial Blood Gas HCO3 23 meg/L (19-24); iSTAT Arterial Blood Gas pCO2 29 mmHg (35-46); iSTAT Arterial Blood Gas pH 7.52 (7.35-7.45); iSTAT Arterial Blood Gas pO2 181 mmHg (80-95); iSTAT Arterial Blood Gas pO2 C 172; iSTAT Carbon Dioxide 24 mmol/L (24-31); iSTAT FiO2 60 %; iSTAT Hematocrit 20 % (42-52); iSTAT Hemoglobin 6.8 g/dl (14.0-18.0); iSTAT Potassium 3.6 mmol/L (3.3-5.0); iSTAT Site Art Line; iSTAT Sodium 141 mmol/L (135-144)
[2023-08-30] MEDS: CEFEPIME 2,000 MG in SYRINGE 0 ML IV SCH (16:52)
[2023-08-30] MEDS ORDERED: SODIUM CHLORIDE 0.9% 250 ML IV PRN ×4 (17:11→20:40)
[2023-08-30] MEDS ORDERED: STAT IV/IM STA (17:58)
--- NOTE | 2023-08-30 18:02 | CT Scan Report ---
CT chest diagnostic wo con CT DOSE: 1674.8 mGy.cm HISTORY: Hypoxia TECHNIQUE: Multiaxial CT images of the chest were performed without contrast. A dose lowering techni que was utilized adhering to the principles of ALARA. COMPARISON: Chest CT 08/23/2023. FINDINGS: The nasogastric tube terminates in the fundus of the stomach. The endotracheal tube termina mirian approximately 2 cm from the danette. Small amount of mucoid material seen within the distal trache a. Remaining central airways are patent. Patchy airspace opacities within the left lung base have imp roved. Patchy and linear airspace opacities within the right lower lobe posteriorly favor cysts. This could represent atelectasis or a pneumonia. No pneumothorax. Trace bilateral pleural effusions. No e vidence for pulmonary edema. A small cluster of tree-in-bud nodular opacities again noted within the lingula. This favors a mild chronic bronchiolitis. A stable 3 mm nodule within the left lower lobe on image 97. A few additional scattered punctate calcified granulomas are seen within the lungs. The ab dominal structures will be reported on the same day abdomen and pelvis CT. Nondisplaced right anterio r second through acute rib fractures. There are poststernotomy changes. There are are also nondisplac ed left anterior second through fourth rib fractures. These are present on the 08/23/[address] No rmal thyroid gland. No mediastinal hematoma or lymphadenopathy. The heart is borderline enlarged. Aor tic valve prosthesis is noted. Calcified plaque within the normal caliber abdominal aorta. Mild body wall edema. Skin thickening seen throughout the back. No hilar lymphadenopathy. No pericardial effusi on. IMPRESSION: 1. Satisfactory support line placement. 2. Nondisplaced acute bilateral anterior rib fractures. These were present on the 08/23/2023 chest CTA . 3. No pneumothorax. 4. Right lower lobe densities persist and may represent atelectasis and/or pneumonia. 5. Left basilar densities have improved. 6. The abdominal structures will be reported separately. 7. Additional findings as described above. ACT 112: Negative or not required by law. Electronically signed by: Ulises Grant M.D. 08/30/2023 6:00 PM
--- NOTE | 2023-08-30 18:13 | CT Scan Report ---
ABDOMEN AND PELVIS CT WITHOUT CONTRAST CT DOSE: HISTORY: Hypotension. r/o bleed TECHNIQUE: Multiaxial CT images of the abdomen and pelvis were performed without contrast. A dose lo wering technique was utilized adhering to the principles of ALARA. COMPARISON STUDY: Abdomen and pelvis CT 08/23/2023. FINDINGS: The lung bases will be reported on the same day chest CT. No pneumoperitoneum. No pneumatos is. Bilateral L5 pars defects are noted. Bilateral anterior rib fractures are better appreciated on t he same day chest CT. No additional fractures identified. Nasogastric tube terminates in the fundus o f the stomach. There is trace perihepatic ascites. Prior cholecystectomy. There is a small gallbladde r remnant identified containing a few small gallstones. This remains unchanged. The unenhanced pancre as, spleen, and adrenal glands are unremarkable. Left-sided nephrolithiasis again noted. There is mil d left hydronephrosis secondary to an obstructing 8 mm stone within the proximal left ureter on image 245. This remains unchanged. There is an additional 1 cm nonobstructing stone within the left renal pelvis, unchanged. No right-sided hydronephrosis. The bladder is decompressed by a Davis catheter. A left femoral vein catheter terminates in the left external iliac vein. Moderate fecal retention. No b owel wall thickening or obstruction. Normal appendix. Moderate body wall edema is noted. There is bee n interval of a moderate to large right retroperitoneal/extraperitoneal hematoma extending into the p ash. There is associated 5.4 cm intramuscular hematoma within the right psoas muscle. There is a sm all amount of hemorrhage surrounding the decompressed bladder. There is also a small amount of intram uscular hemorrhage within the right lateral abdominal wall. The dominant retroperitoneal hematoma adj acent to the right iliopsoas muscle measures 15 x 8 x 5 cm. A small amount of the retroperitoneal hem orrhage overlaps the abdominal aorta and IVC. IMPRESSION: 1. Moderate to large right-sided retroperitoneal, extraperitoneal, and intramuscular hematomas as vianney cribed above. 2. Satisfactory support line placement. 3. There is an obstructing 8 mm stone within the proximal left ureter resulting in a left hydronephro sis. This remains unchanged. 4. Evidence for prior cholecystectomy with a few small gallstones identified within the gallbladder r emnant. This remains unchanged. 5. Additional findings as described above.. ACT 112: Negative or not required by law. Electronically signed by: Ulises Grant M.D. 08/30/2023 6:11 PM
[2023-08-30] MEDS: PROTAMINE SULFATE 50 MG in DEXTROSE 5% 50 ML IV ONE (18:15)
[2023-08-30] MEDS: diphenhydrAMINE 50 MG/ML VIAL IV STA (19:03)
[2023-08-30] MEDS: POTASSIUM CHLORIDE / WTR 20 MEQ/100 ML PLCT IV SCH (19:03)
[2023-08-30] MEDS: OPTIRAY 320 125ml IV ONE (19:40)
--- NOTE | 2023-08-30 20:02 | Communication Note ---
Date of Service: August 30, 2023 Pt became hypotensive this afternoon and was given a bolus of IVFs, IV hydrocortisone. He was still able to wake up and respond. He did not respond to the bolus and shortly after his BP dropped further to 50s sytolic. He then stopped breathing, lost his pulse and chest compressions were started. He then briefly started breathing again and a rhythm check showed PEA with Afib, then lost pulse. Chest compressions resumed and two rounds went by with 2 mg of epi total given, IV calcium chloride and 1 amp bicarb pushed. Airway was being bagged by RT. He then regained his pulse and was spontaneously breathing, became alert and opened his eyes. Levophed drip was started and pt transferred to ICU, Labs showed acute drop in hgb to 7.[address] abd/pel and chest obtained after he was intubated in ICU and showed large right sided RP and extraperitoneal as well as IM hematomas. Blood transfusion initiaited, protamine given to reverse Lovenox, and Lovenox held. Discussed with Cardiology that would be ok to be off all AC for 48 hrs. Bottle Capper was consulted STAT and was present during CODE BLUE as well. APpreciate transfer of care to ICU. Getting CTA abd/pel to assess for acute bleeding and recommend transfer out to [facility] for IR if positive. ICU has already made arrangements through transfer center.
--- NOTE | 2023-08-30 20:08 | CT Scan Report ---
Exam(s): CTA ABDOMEN + PELVIS With Contrast IV Amt: 118 ml optiray 320 EXAM: CT Angiography Abdomen and Pelvis With Intravenous Contrast CLINICAL HISTORY: Concern for active bleed. TECHNIQUE: Axial computed tomographic angiography images of the abdomen and pelvis with intravenous contrast. CTDI is 81.21 mGy and DLP is 2131.52 mGy-cm. Automated exposure control was utilized for the study. A dose lowering technique was utilized adhering to the principles of ALARA. MIP reconstructed images were created and reviewed. CONTRAST: Patient received 118 ml optiray 320 of IV contrast COMPARISON: CT abdomen and pelvis 08/30/2023 FINDINGS: VASCULATURE: Aorta: Mild atherosclerosis of the aorta is noted. Mild atherosclerosis. No abdominal aortic aneurysm. No dissection. Celiac trunk and mesenteric arteries: No acute findings. No occlusion or significant stenosis. Renal arteries: There is atherosclerosis of the origin of both renal arteries without significant stenosis. There is an accessory right renal artery. Iliac arteries: There is atherosclerosis of the bilateral common, internal and external iliac arteries without significant stenosis. Lung bases: Unremarkable. No mass. No consolidation. ABDOMEN: Liver: Unremarkable. No mass. Gallbladder and bile ducts: Cholecystectomy. Pancreas: Unremarkable. No ductal dilation. No mass. Spleen: Unremarkable. No splenomegaly. Adrenals: Unremarkable. No mass. Kidneys and ureters: Unremarkable. No hydronephrosis. No solid mass. Stomach and bowel: Unremarkable. No obstruction. No mucosal thickening. PELVIS: Appendix: No findings to suggest acute appendicitis. Bladder: A Davis catheter is present. Reproductive: Unremarkable as visualized. ABDOMEN and PELVIS: Intraperitoneal space: Unremarkable. No significant fluid collection. No free air. Retroperitoneal space: There is a small amount of active bleeding of the stable right retroperitoneal hematoma. A approximately 6 x 4 x 10 cm right iliopsoas hematoma is also present, and this hematoma however does not demonstrate active bleeding. Bones/joints: There are degenerative changes of the spine. No acute fracture. Soft tissues: Marked nonspecific body wall edema. Small bilateral fat-containing inguinal hernias. Lymph nodes: Unremarkable. No enlarged lymph nodes. IMPRESSION: 1. There is a small amount of active bleeding of the stable right retroperitoneal hematoma. 2. A approximately 6 x 4 x 10 cm right iliopsoas hematoma is also present, and this hematoma however does not demonstrate active bleeding. 3. Marked body wall edema. Communications: Call Doctor Above results Electronically signed by: [place]ia Hanson MD 08/30/23 20:08 PM
[2023-08-30] MEDS: HYDROCORTISONE SOD 50 MG in SYRINGE 0 ML IV SCH (21:35)
--- NOTE | 2023-08-30 21:45 | Procedure Note ---
Procedure Note Date of Service August 30, 2023 Note Procedure: Femoral Central Line Placement Attending: Dr. Clark APC: Rico Bradford PA-C Indication: Central Drug Administration, Poor Venous Access, Multiple Lab Draws Necessary, etc. Anesthesia: None Emergent consent implied in the setting of poor peripheral access and active extremis requiring aggressive vasopressor support, frequent lab draws, and central venous access. A time-out was completed verifying correct patient, procedure, site, positioning, and implants(s) or special equipment if applicable. Patients LEFT Groin was cleansed and draped in the typical sterile fashion using Chloraprep. The Femoral Vein and Femoral Artery were identified using ultrasound. No lidocaine used. After adequate anesthetization was achieved, the Femoral Vein was cannulated under direct ultrasound guidance using an introducer needle on a syringe. Good venous blood return was maintained prior to removal of syringe from introducer needle. Using Seldinger Technique, a guide wire was advanced through the introducer needle without resistance. The introducer needle was removed and ultrasound images were obtained of the guide wire within the Femoral Vein and saved to the patients medical record. A small incision was made in penetrating fashion at the guide wire insertion site utilizing an 11 blade scalpel. The dilator was advanced to the vessel without resistance. The dilator was exchanged for the triple lumen catheter which was advanced into the vessel without resistance. The guide wire was removed intact from the catheter without issue. Claves were placed on each catheter tip with confirmation of good blood flow from each lumen. Each port was easily flushed with sterile saline. The catheter was placed at the hub and sutured in place. BioPatch was applied to the catheter and a sterile Tegaderm dressing was applied over the catheter with careful attention to sterility. Patient tolerated procedure well. No immediate complications were met. Images obtained are saved for permanent record Procedural Ultrasound Guidance: Procedure Date: 08/30/2023 Indication: Central venous access necessary in the patient in active extremis with poor peripheral access and need for escalating pressors, frequent lab draws, and close monitoring. Attending: Dr. Clark APC: Rico Bradford PA-C Artery AND Vein visualized: YES Compressible Vein: YES Guidewire or Short Catheter seen in vein prior to dilation: YES Line confirmed in Vein with ultrasound: YES Images obtained are saved for permanent record. Coding CPT Codes Tubes, Drains, and Vasc Access - Tubes, Drains, and Vasc Access: [id number] Insertion Of Non-tunneled Catheter Age 4 Yrs> ([id number]) [facility] [place] [facility] [place] Procedure Codes (Charges) Tubes, Drains, and Vasc Access Procedure 1: Tubes, Drains, and Vasc Access: [id number] Insertion Of Non-tunneled Catheter Age 4 Yrs>
--- NOTE | 2023-08-30 21:45 | Procedure Note ---
Procedure Note Date of Service August 30, 2023 Note Procedure: Femoral Arterial Line Placement Attending: Dr. Clark APC: Rico Bradford PA-C Indication: Central Drug Administration, Poor Venous Access, Multiple Lab Draws Necessary, etc. Anesthesia: None Emergent consent implied in the setting of patient in active extremis requiring multiple pressors and need for close hemodynamic monitoring. A time-out was completed verifying correct patient, procedure, site, positioning, and implants(s) or special equipment if applicable. Patients LEFT Groin was cleansed and draped in the typical sterile fashion using Chloraprep. The Femoral Vein and Femoral Artery were identified using ultrasound. No lidocaine was utilized. The Femoral artery was cannulated under direct ultrasound guidance using an introducer needle on a syringe. Good arterial blood return was maintained prior to removal of syringe from introducer needle. Using Seldinger Technique, a guide wire was advanced through the introducer needle without resistance. The introducer needle was removed and ultrasound images were obtained of the guide wire within the Femoral Artery and saved to the patients medical record. The 20-gauge femoral arterial line was advanced over the wire into the vessel without resistance. The guide wire was removed intact from the catheter without issue. Pulsatile blood flow was noted from the catheter after placement. Catheter was attached to transducer device. The catheter was placed at the hub and sutured in place. The catheter was sutured in place. BioPatch was applied to the catheter and a sterile Tegaderm dressing was applied over the catheter with careful attention to sterility. Patient tolerated procedure well. No immediate complications were met. Images obtained are saved for permanent record Procedural Ultrasound Guidance: Procedure Date: 08/30/2023 Indication: Hemodynamic monitoring in the setting of escalating vasopressor support. Attending: Dr. Clark APC: Rico Bradford PA-C Artery AND Vein visualized: YES Compressible Vein: YES Line confirmed in Artery with ultrasound: YES Images obtained are saved for permanent record. Coding CPT Codes Tubes, Drains, and Vasc Access - Tubes, Drains, and Vasc Access: [id number] Arterial Cath/Cannulation Sampling/Monitoring/Transfusion ([id number]) [facility] [place] Procedure Codes (Charges) Tubes, Drains, and Vasc Access Procedure 1: Tubes, Drains, and Vasc Access: [id number] Arterial Cath/Cannulation Sampling/Monitoring/Transfusion
--- NOTE | 2023-08-30 22:31 | Communication Note ---
Date of Service: August 30, 2023 Patient received protamine for anticoagulation reversal. Following this repeat CT angio abdomen and pelvis showed small amount of bleeding and stable retr operitoneal hematoma, and without evidence of further bleeding and iliopsoas. I did speak with interventional radiologist at [facility] in regards to potential transfer for IR. Following CT results, felt that it was better to medically manage for now unless bleeding were to worsen. At this time, we will continue with medical management at this facility. Continue to trend H&H. Will give 1 unit FFP for INR 2.0, in addition to 2 units RBCs. Hold further anticoagulation. Primary team and also updated by myself. Patient's condition remains guarded at this time, although we are starting to make progress in weaning vasopressor support. Will continue further management in ICU. CRITICAL CARE TIME - I have personally spent 43 minutes of critical care time in the direct management of this patient. This is a life/limb threatening event. This includes time spent evaluating patient, direct bedside care, chart review, placing orders, interpretation of diagnostic studies, discussion with consultants, patient, and family members, as well as other required patient management activities. This time is exclusive of all separately billable procedures, and teaching time and separate from and in addition to any other critical care service time. Coding Level of Care Code 72254 CRITICAL CARE EA ADD 30M
[2023-08-30 23:38] LABS: Hematocrit (blood only) 26.3 % (42.0-52.0); Hemoglobin 8.7 g/dl (14.0-18.0); Mean Corpuscular Hemoglobin 27.4 pg (25.0-34.0); Mean Corpuscular Hgb Conc 33.1 g/dL (32.0-36.0); Mean Corpuscular Volume 82.7 fL (80.0-100.0); Mean Platelet Volume 11.2 fL (9.4-12.4); Platelet Count 141 K/uL (130-400); RDW Coefficient of Variation 14.6 % (11.5-14.5); RDW Standard Deviation 43.3 fL (36.4-46.3); Red Blood Count 3.18 M/uL (4.70-6.10); White Blood Count 15.48 K/ul (4.8-10.8)
--- NOTE | 2023-08-30 23:42 | Communication Note ---
Date of Service: August 30, [address] abd/pel--> left obstructing ureteral stone. WIth persistent Proteus in urine cx, could be from stone When stabilized from RP bleed standpoint, consult Urology to evaluate for need for ureteral stent Discussed with Test Operator and with ID
[2023-08-31 00:14] LABS: Fibrinogen 218 mg/dl (184-400); INR 1.9 (0.9-1.1); Prothrombin Time 20.2 Seconds (9.0-12.0)
[2023-08-31 04:25] LABS: Basophils # (auto) 0.03 K/uL (0.00-0.20); Basophils % (auto) 0.2 %; Hematocrit (blood only) 25.3 % (42.0-52.0); Hemoglobin 8.6 g/dl (14.0-18.0); Immature Granulocytes # (auto) 0.43 K/uL (0.01-0.20); Immature Granulocytes % (auto) 2.6 %; Lymphocytes # (auto) 1.78 K/uL (1.20-3.40); Lymphocytes % (auto) 10.6 %; Mean Corpuscular Hemoglobin 27.8 pg (25.0-34.0); Mean Corpuscular Volume 81.9 fL (80.0-100.0); Mean Platelet Volume 11.5 fL (9.4-12.4); Monocytes # (auto) 1.26 K/uL (0.11-0.59); Monocytes % (auto) 7.5 %; Neutrophils # (auto) 13.28 K/uL (1.40-6.50); Neutrophils % (auto) 79.1 %; Platelet Count 152 K/uL (130-400); RDW Coefficient of Variation 14.6 % (11.5-14.5); RDW Standard Deviation 42.8 fL (36.4-46.3); Red Blood Count 3.09 M/uL (4.70-6.10); White Blood Count 16.78 K/ul (4.8-10.8)
[2023-08-31 04:31] LABS: BUN Creatinine Ratio 32.4 (10-20); Calcium 7.9 mg/dl (8.6-10.3); Creatinine Clr Calc Pharmacy 95.9 ml/min; Est GFR (African American) 93.5 ml/min; Est GFR (Non-African American) 80.6 ml/min; Magnesium 1.9 mg/dl (1.7-2.4); Potassium 4.1 mmol/L (3.5-5.1)
[2023-08-31 04:38] LABS: iSTAT Art Bld Gas pCO2 Correct 32 mmHg (35-46); iSTAT Art Bld Gas pH Corrected 7.469 (7.35-7.45); iSTAT Arterial Blood Gas HCO3 23 meg/L (19-24); iSTAT Arterial Blood Gas pCO2 32 mmHg (35-46); iSTAT Arterial Blood Gas pH 7.47 (7.35-7.45); iSTAT Arterial Blood Gas pO2 155 mmHg (80-95); iSTAT Arterial Blood Gas pO2 C 157; iSTAT Carbon Dioxide 24 mmol/L (24-31); iSTAT FiO2 40 %; iSTAT Hematocrit 22 % (42-52); iSTAT Hemoglobin 7.5 g/dl (14.0-18.0); iSTAT Potassium 3.9 mmol/L (3.3-5.0); iSTAT Site Art Line; iSTAT Sodium 140 mmol/L (135-144)
[2023-08-31] MEDS: VANCOMYCIN HCL 1,500 MG in SODIUM CHLORIDE 0.9% 500 ML IV SCH (05:37)
[2023-08-31] MEDS: PLASMA-LYTE A 1,000 ML IV SCH (05:41)
[2023-08-31] MEDS: VANCOMYCIN LEVEL ONE (05:41)
[2023-08-31] MEDS: MAGNESIUM SULFATE / D5W 1 GM/100 ML BAG IV ONE ×2 (05:44→08:58)
--- NOTE | 2023-08-31 07:26 | Communication Note ---
Date of Service: August 31, 2023 Critical care addendum: Patient's CT abdomen pelvis did show moderate to large right-sided retroperitoneal and extraperitoneal as well as intramuscular hematomas. There was also a 8 mm proximal left ureter stone resulting in hydronephrosis which was unchanged. Given the need for vasopressors, patient s/p cardiac arrest I thought patient will benefit from IR intervention especially given that he has mechanical heart valve and stopping anticoagulation for a long time could be detrimental. Order for protamine 0.5 mg/mg for Lovenox given which would be 50 mg ordered. 2 units of PRBC ordered. Will consider Kcentra. I did get in touch with the transfer center and spoke with interventional radiologist at [place], [place]. He stated to continue with the current course and do a CTA to see if there is any acute bleeding where they can do any intervention. He did say that it is unlikely that they would be able to intervene as most of the time retroperitoneal extraperitoneal bleed stop on their own. He requested to give them a call back after the CT is done. Case was discussed with Dr. Rubi. I have personally spent additional 35 minutes of critical care time in the direct management of this patient. This is a life/limb threatening event. This includes time spent evaluating patient, direct bedside care, chart review, placing orders, interpretation of diagnostic studies, discussion with consultants, patient, and family members, as well as other required patient management activities. This time is exclusive of all separately billable procedures, and teaching time and separate from and in addition to any other critical care service time. Please note the above document was generated using voice recognition software. It may contain grammatical, syntax or spelling errors. Coding Level of Care Code 87775 CRITICAL CARE EA ADD 30M Time Spent (min) 35
--- NOTE | 2023-08-31 07:42 | Critical Care Progress Note ---
Date of Service August 31, 2023 Assessment & Plan (1) Septic shock: (2) Respiratory failure: (3) Cardiac arrest: (4) Uncontrolled diabetes mellitus with hyperglycemia: (5) History of stroke: (6) Chronic anticoagulation: (7) Sepsis with acute organ dysfunction and septic shock: Plan Impression:: 57-year-old male with severe sepsis with septic shock secondary to Proteus UTI/bacteremia with prior history of stroke admitted with out of hospital cardiac arrest- PEA on arrival. Patient was initially in the ICU and then downgraded. He had another hypotensive and PEA arrest on 08/30/2023. Sent to ICU for further management Recommendations Neuro - -- Encephalopathy secondary to acute CVA Likely embolic stroke, appreciated on MRI 08/30/23 MRI of the brain 08/28/2023: 2 subcentimeter acute infarcts in the right frontal and parietal lobe. Old infarcts in the right thalamus in the cerebral hemisphere. Atrophy and microvascular ischemic changes -- History of CVA in the past with left hemiparesis Cardiac - -- PEA Etiology seems to be hemorrhagic shock Continue with vasopressor support to keep MAP greater than 65 EKG 08/30/2023 1534: A-fib, right bundle branch block, left axis deviation, no ST-T wave changes appreciated -- History of mechanical heart valve On warfarin at home Currently on Lovenox --A-fib On warfarin at home Respiratory - -- VDRF for airway protection secondary to cardiac arrest Continue with ventilatory support Keep RASS -1 Daily sedation holidays and SBT's -- Multiple rib fractures Likely from chest compressions from the initial admission GI - -- Aspiration Patient failed swallow eval 08/29/2023 RENAL/LYTES -- Monitor BUNs/creatinine Avoid nephrotoxic medications --History of gout On allopurinol --Left-sided ureter stone with hydronephrosis Will get urology involved ENDO - -- Diabetes type 2 ICU hypoglycemia protocol HEME - -- Acute blood loss anemia from retroperitoneal bleed S/p 2 units PRBC, protamine and FFP on 08/30/2023 Monitor H&H Not a candidate for intervention right now after discussion with IR at [facility] Continue to hold anticoagulation for another 24 hours and then resume heparin drip given the patient has mechanical heart well ID - -- Proteus mirabilis and Aerococcus viridans Has been on daptomycin as well as Rocephin Will change Rocephin to cefepime and add Flagyl because of aspiration --Decubitus ulcer S/p debridement on the previous ICU visit Wound culture growing gram-negative bacilli on 08/30/2023 --Prophylaxis VTE: Lovenox GI: Pantoprazole Lines: Left femoral TLC, left femoral radial, ETT, Davis changed 08/30/2023 Diet: Start tube feeds Plan: In/out: +5.3 L, urine output 8-6 ABG 7.47/32/155 on 40%, PEEP of 5 and respiratory 16 with tidal volume 420 DC Flagyl Wound culture is growing gram-negative bacilli, Would continue with cefepime Continue with hydrocortisone 50 mg twice daily right now and gradually taper it off Continue with vasopressor support to keep MAP greater than 65 Given INR is still 2 and patient hemoglobin is still dropping, will give vitamin K 2.5 mg Due to monitor H&H, if there is decline will transfuse again Patient was supposed to have DEO done yesterday to rule out vegetation. Given that he is already intubated, DEO can be pursued. Primary team was made aware to get in touch with cardiology regarding that. Start patient on tube feeds Not a candidate for intervention right now after discussion with IR at [facility] Continue to hold anticoagulation for another 24 hours and then resume heparin drip given the patient has mechanical heart well I have personally spent 43 minutes of critical care time in the direct management of this patient. This is a life/limb threatening event. This includes time spent evaluating patient, direct bedside care, chart review, placing orders, interpretation of diagnostic studies, discussion with consultants, patient, and family members, as well as other required patient management activities. This time is exclusive of all separately billable procedures, and teaching time and separate from and in addition to any other critical care service time. Please note the above document was generated using voice recognition software. It may contain grammatical, syntax or spelling errors. Admission and Anticipated Discharge Date Admission Date: August 23, 2023 Subjective Patient seen and examined at bedside. No acute distress, no adverse events overnight He was on propofol 20 and fentanyl 25 at time of examination MAP was 66 while on Levophed 0.08 He was RASS -1, opening eyes but not following any commands Has been afebrile Review of Systems 2 Review of Systems: Unobtainable due to endotracheal tube Physical Exam 2 Physical Exam: Constitutional: No acute distress HEENT: PERRLA Respiratory system: Decreased air entry bilaterally, no wheeze, no rhonchi, positive crackles bilaterally CVS: S1-S2 positive, mechanical heart sound Abdomen: Soft, nontender, nondistended, positive bowel sounds x4 Extremities: + 1 pulses bilaterally radialis/ dorsalis pedis, no cyanosis, +1 pitting edema bilateral lower extremity, +1 pitting edema left upper extremity Neuro: Sedated, RASS -1 Psych: Unable to assess G/U: Positive Davis Skin: no rashes, warm and dry Lymphatic: no cervical or axillary lymphadenopathy Results & Data Results & Data Vital Signs (Past 12 Hours) Vital Signs Temp Pulse Resp BP Pulse Ox Pulse Ox O2 Del Method 08/31/23 05:45 115/74 08/31/23 05:45 37.2 C 79 16 100 08/31/23 05:30 106/75 08/31/23 05:30 37.2 C 82 18 100 08/31/23 05:15 114/70 08/31/23 05:15 37.2 C 79 26 H 100 08/31/23 05:00 99/66 L 08/31/23 05:00 37.2 C 85 26 H 100 08/31/23 04:45 97/67 L 08/31/23 04:45 37.2 C 80 24 100 08/31/23 04:30 112/76 08/31/23 04:30 37.2 C 84 23 100 08/31/23 04:15 37.2 C 80 18 100 08/31/23 04:15 110/75 08/31/23 04:15 17 08/31/23 04:00 119/82 08/31/23 04:00 37.2 C 83 16 100 08/31/23 04:00 08/31/23 04:00 100 08/31/23 04:00 85 102/53 L 08/31/23 03:45 112/75 08/31/23 03:45 37.2 C 83 16 100 08/31/23 03:38 108/75 08/31/23 03:38 37.2 C 85 18 100 08/31/23 03:30 37.2 C 79 18 100 08/31/23 03:00 90 17 99 08/31/23 02:30 37.1 C 84 16 100 08/31/23 02:30 101/67 08/31/23 02:15 123/86 08/31/23 02:15 37.2 C 75 16 100 08/31/23 02:06 37.2 C 75 16 100 08/31/23 01:30 37.2 C 74 16 100 08/31/23 01:30 116/78 08/31/23 01:15 37.1 C 73 16 100 08/31/23 01:15 128/89 08/31/23 01:00 126/72 08/31/23 01:00 37.1 C 71 16 100 08/31/23 00:45 117/80 08/31/23 00:45 37.1 C 71 16 100 08/31/23 00:30 123/84 08/31/23 00:30 37.0 C 66 16 100 08/31/23 00:15 132/79 08/31/23 00:15 37.0 C 79 16 100 08/31/23 00:00 143/86 H 08/31/23 00:00 36.9 C 75 16 100 08/30/23 23:45 134/80 08/30/23 23:45 36.9 C 77 16 100 08/30/23 23:45 16 08/30/23 23:43 08/30/23 23:43 100 08/30/23 23:43 74 119/60 08/30/23 23:43 80 08/30/23 23:30 129/81 08/30/23 23:30 36.8 C 73 16 100 08/30/23 23:15 141/100 H 08/30/23 23:15 36.8 C 72 16 100 08/30/23 23:00 135/84 08/30/23 23:00 36.8 C 71 16 100 08/30/23 22:45 142/87 H 08/30/23 22:45 36.7 C 73 16 100 08/30/23 22:30 147/90 H 08/30/23 22:30 36.7 C 74 16 100 08/30/23 22:15 167/97 H 08/30/23 22:15 36.7 C 75 16 100 08/30/23 22:00 147/91 H 08/30/23 22:00 36.8 C 79 16 100 08/30/23 21:59 36.8 C 72 18 133/66 100 08/30/23 21:45 155/99 H 08/30/23 21:45 36.8 C 70 16 100 08/30/23 21:44 36.8 C 74 18 129/70 100 08/30/23 21:30 156/99 H 08/30/23 21:30 36.7 C 74 16 100 08/30/23 21:28 36.7 C 75 18 127/61 100 08/30/23 21:18 36.7 C 71 18 126/65 100 08/30/23 21:15 156/95 H 08/30/23 21:15 36.7 C 72 16 100 08/30/23 21:00 143/98 H 08/30/23 21:00 36.7 C 75 16 100 08/30/23 20:48 36.7 C 77 18 122/63 100 08/30/23 20:45 145/88 H 08/30/23 20:45 36.6 C 76 16 100 08/30/23 20:33 36.7 C 79 18 124/62 100 08/30/23 20:30 36.5 C 77 16 100 08/30/23 20:30 125/91 08/30/23 20:17 36.5 C 81 18 129/61 100 08/30/23 20:15 151/99 H 08/30/23 20:15 36.5 C 82 14 100 08/30/23 20:12 36.7 C 77 18 124/62 100 08/30/23 20:11 169/112 H 08/30/23 20:11 36.5 C 98 H 14 100 08/30/23 20:00 08/30/23 20:00 100 08/30/23 20:00 86 126/62 08/30/23 20:00 Mechanical Vent 08/30/23 20:00 93 H 13 100 08/30/23 20:00 23 08/30/23 19:59 36.5 C 14 100 O2 Del Method O2 Flow Rate FiO2 08/31/23 05:45 08/31/23 05:45 08/31/23 05:30 08/31/23 05:30 08/31/23 05:15 08/31/23 05:15 08/31/23 05:00 08/31/23 05:00 08/31/23 04:45 08/31/23 04:45 08/31/23 04:30 08/31/23 04:30 08/31/23 04:15 08/31/23 04:15 08/31/23 04:15 30 08/31/23 04:00 08/31/23 04:00 08/31/23 04:00 30 08/31/23 04:00 Mechanical Vent 30 08/31/23 04:00 08/31/23 03:45 08/31/23 03:45 08/31/23 03:38 08/31/23 03:38 08/31/23 03:30 08/31/23 03:00 08/31/23 02:30 08/31/23 02:30 08/31/23 02:15 08/31/23 02:15 08/31/23 02:06 08/31/23 01:30 08/31/23 01:30 08/31/23 01:15 08/31/23 01:15 08/31/23 01:00 08/31/23 01:00 08/31/23 00:45 08/31/23 00:45 08/31/23 00:30 08/31/23 00:30 08/31/23 00:15 08/31/23 00:15 08/31/23 00:00 08/31/23 00:00 08/30/23 23:45 08/30/23 23:45 08/30/23 23:45 40 08/30/23 23:43 40 08/30/23 23:43 Mechanical Vent 40 08/30/23 23:43 08/30/23 23:43 08/30/23 23:30 08/30/23 23:30 08/30/23 23:15 08/30/23 23:15 08/30/23 23:00 08/30/23 23:00 08/30/23 22:45 08/30/23 22:45 08/30/23 22:30 08/30/23 22:30 08/30/23 22:15 08/30/23 22:15 08/30/23 22:00 08/30/23 22:00 08/30/23 21:59 08/30/23 21:45 08/30/23 21:45 08/30/23 21:44 08/30/23 21:30 08/30/23 21:30 08/30/23 21:28 08/30/23 21:18 08/30/23 21:15 08/30/23 21:15 08/30/23 21:00 08/30/23 21:00 08/30/23 20:48 08/30/23 20:45 08/30/23 20:45 08/30/23 20:33 08/30/23 20:30 08/30/23 20:30 08/30/23 20:17 08/30/23 20:15 08/30/23 20:15 08/30/23 20:12 08/30/23 20:11 08/30/23 20:11 08/30/23 20:00 40 08/30/23 20:00 Mechanical Vent 40 08/30/23 20:00 08/30/23 20:00 40 08/30/23 20:00 08/30/23 20:00 40 08/30/23 19:59 Laboratory Results 08/31/23 03:32 08/31/23 03:32 Coding Level of Care Code 87819 CRITICAL CARE 1ST 30-74M Diagnoses Septic shock A41.9; R65.21 Respiratory failure J96.00 Chronicity: acute Respiratory failure complication: unspecified whether with hypoxia or hypercapnia Cardiac arrest I46.9 Uncontrolled diabetes mellitus with hyperglycemia E11.65 History of stroke Z86.73 Chronic anticoagulation Z79.01 Sepsis with acute organ dysfunction and septic shock A41.9; R65.21 (2) Respiratory failure Chronicity: acute Respiratory failure complication: unspecified whether with hypoxia or hypercapnia Qualified Code(s): J96.00 - Acute respiratory failure, unspecified whether with hypoxia or hypercapnia
--- NOTE | 2023-08-31 07:47 | Pharmacy Report ---
Pharmacy PK ABX Note - Date of Service August 31, 2023 - Assessment and Plan Assessment 57 year old M receiving vancomycin and cefepime for treatment of bacteremia, UTI and pulmonary sources. Patient is post cardiac arrest. Pertinent microbiologic data includes:urine culture growing proteus mirabilis and blood cx growing proteus mirabilis and aerococcus viridans. CT abd/pelvis showing left obstructing uretal stone. Scr increased somewhat since yesterday. Will monitor the transiency of this in the setting of acute clinical change. Based on the rise in scr and random level this morning will decrease maintenance dose. Day # 1 of antimicrobial therapy. Plan Vancomycin * Loading dose: 2000 mg IV x 1 * Maintenance dose: 1250 mg IV every 12 hours (one dose of 1500 mg administered this morning prior to dose reduction) * Regimen is predicted to achieve target AUC/JANICE of 400-600 mg/L.hr * Will repeat level in the next 24-48 hours based on patient clinical status Pharmacy will continue to follow and will adjust dose/frequency as necessary. Thank you. Pharmacy has transitioned to AUC monitoring for vancomycin. AUC/JANICE is the preferred PK/PD target and is associated with decreased risk of nephrotoxicity compared to traditional trough targets.
[2023-08-31 09:00] LABS: Phosphorus 4.2 mg/dl (2.5-4.9)
[2023-08-31 09:24] LABS: Hematocrit (blood only) 22.2 % (42.0-52.0); Hemoglobin 7.6 g/dl (14.0-18.0)
[2023-08-31] MEDS: LANTUS PER UNIT CHARGE SC STA (10:29)
[2023-08-31] MEDS: PHYTONADIONE 2.5 MG in DEXTROSE 5% 50 ML IV ONE (11:25)
--- NOTE | 2023-08-31 12:13 | Urology Consultation ---
Date of Consultation August 31, 2023 Assessment & Plan (1) UTI (urinary tract infection): (2) Bacteremia: (3) Left ureteral stone: Plan Although patient has other comorbidities and active issues, from the urology perspective I am concerned that he has a UTI with an obstructing stone. this raises concern for inadequate drainage of the infection and adequate source control. I would recommend that we proceed with cystoscopy, left retrograde pyelogram and left ureteral stent placement. I discussed this with his who is helping with decision making for him while he is in this current state. We discussed risks and benefits of the procedure. She expressed understanding and would like for us to proceed. I also did my best to discuss this with the patient, however it is not clear how much understanding he had. Regarding the retroperitoneal hemorrhage, would recommend continuing to monitor. Agree with monitoring coags, transfusing as needed. Usually there is enough pressure in the space that bleeding will tamponade itself. If he continues to bleed, would recommend reaching out to interventional radiology again for possible embolization. History of Present Illness Reason for Consultation: Ureteral stone, UTI Attending Physician: Elizabet West MD History of Present Illness This is a 57-year-old male, currently admitted to the ICU with multiple medical issues. He initially presented to the hospital after outside cardiac arrest. He was in PEA on arrival. At that time he was found to have severe sepsis and septic shock, suspected to be related to Proteus UTI and bacteremia. He was initially in the ICU and was downgraded, however became hypotensive and had another PEA arrest on 08/30/2023. When repeat imaging was performed on 08/29, he was noted to have an obstructing stone in the proximal left ureter with associated left hydronephrosis. He also has a right sided retroperitoneal and intramuscular hematoma. Urology was consulted regarding the ureteral stone. At the bedside, he is not able to provide much meaningful history as he is intubated. Labs reviewed: 08/31/2023: WBC 16.78, has been gradually trending up, hemoglobin 7.5. Creatinine 1.02 Urine culture from 08/22 and 08/28/2023 with Proteus mirabilis, blood cultures from 417 also with Proteus. And Aerococcus. I independently reviewed his CT scan from 08/30/2023. Both kidneys are in orthotopic position. There are significant vascular calcifications bilaterally. There is hydronephrosis on the left extending down to an obstructing stone in the proximal ureter. There are nonobstructing stones in the left renal pelvis. I do not appreciate any stones on the right side. His bladder is decompressed with a Davis catheter in place. There is a small amount of gas within the bladder. Prostate is normal appearing. There are hematomas in the right retroperitoneum and involving the psoas muscle. Allergies Allergy/AdvReac Type Severity Reaction Status Date / Time bee venom protein (honey bee) Allergy Unknown Verified 08/23/23 20:23 Iodinated Contrast Media Allergy Hives Verified 08/23/23 20:23 Penicillins Allergy Hives Verified 08/23/23 20:23 Home Medications Medication Instructions Recorded Confirmed Type allopurinol 100 mg tablet 100 mg PO QAM 08/23/23 08/23/23 History amlodipine 10 mg tablet 10 mg PO QAM 08/23/23 08/23/23 History aspirin 81 mg chewable tablet 81 mg PO DAILY 08/23/23 08/23/23 History (Aspirin Childrens) atorvastatin 10 mg tablet 10 mg PO HS 08/23/23 08/23/23 History carvedilol 25 mg tablet 25 mg PO BID 08/23/23 08/23/23 History clonidine HCl 0.2 mg tablet 0.2 mg PO TID 08/23/23 08/23/23 History famotidine 40 mg tablet 40 mg PO DAILYBB 08/23/23 08/23/23 History furosemide 40 mg tablet 20 mg PO Q OTHER DAY 08/23/23 08/23/23 History gabapentin 300 mg capsule 300 mg PO TID 08/23/23 08/23/23 History montelukast 10 mg tablet 10 mg PO DAILY 08/23/23 08/23/23 History pregabalin 150 mg capsule 150 mg PO BID 08/23/23 08/23/23 History tamsulosin 0.4 mg capsule 0.4 mg PO QAM 08/23/23 08/23/23 History warfarin 1 mg tablet 1 mg PO DAILY 08/23/23 08/23/23 History warfarin 5 mg tablet 5 mg PO DAILY 08/23/23 08/23/23 History oxycodone 15 mg tablet 15 mg PO Q4 PRN Severe Pain (Scale 08/28/23 08/28/23 History Score 7-10) Patient History Medical History (Updated 08/31/23 @ 12:15 by Oc Cohn MD) Acute CVA (cerebrovascular accident) GERD (gastroesophageal reflux disease) Hyperlipidemia Peripheral neuropathy Gout Hypertension BPH w urinary obs/LUTS Chronic anticoagulation History of stroke Social History Smoking Status: Never smoker Tobacco Type: Smokeless Tobacco (Dip or Chew) Second Hand Exposure: No; Do You Dip or Chew Tobacco: Yes; Tobacco Cessation Education Requested by Patient: No Hx Alcohol Use: No Hx Substance Use: No Preferred Language: Yoruba Communication Ability: Unable Manager Ethics Required: No Beliefs That Will Affect Care: None Current Living Situation: Spouse Other Information That Helps Us Care for You: No Feels Safe at Home: Yes Safety Concerns: Feels Safe At This Time Assistive Devices: Mechanical Lift and Wheelchair Review of Systems Review of Systems: Patient unable to participate in review of systems due to mental status and being intubated. Physical Exam Physical Exam: Ill-appearing, sedated, Eyes: Somewhat glassy eyed, intermittent eye contact Respiratory: Intubated Cardiovascular: Appropriate heart rate on telemetry. Results & Data Vital Signs (Past 12 Hours) Vital Signs Temp Pulse Resp BP Pulse Ox Pulse Ox O2 Del Method 08/31/23 10:28 94 H 18 99 08/31/23 10:00 103/73 08/31/23 10:00 37.2 C 86 18 99 08/31/23 09:45 122/76 08/31/23 09:45 37.2 C 97 H 19 98 08/31/23 09:00 110/74 08/31/23 09:00 37.2 C 85 16 98 08/31/23 08:30 98/65 L 08/31/23 08:30 37.1 C 82 16 98 Mechanical Vent 08/31/23 08:06 86 17 100 08/31/23 08:00 123/78 08/31/23 08:00 37.2 C 84 16 97 08/31/23 08:00 94 H 08/31/23 08:00 08/31/23 07:00 37.2 C 76 23 100 Mechanical Vent 08/31/23 07:00 103/65 08/31/23 05:45 115/74 08/31/23 05:45 37.2 C 79 16 100 08/31/23 05:30 106/75 08/31/23 05:30 37.2 C 82 18 100 08/31/23 05:15 114/70 08/31/23 05:15 37.2 C 79 26 H 100 08/31/23 05:00 99/66 L 08/31/23 05:00 37.2 C 85 26 H 100 08/31/23 04:45 97/67 L 08/31/23 04:45 37.2 C 80 24 100 08/31/23 04:30 112/76 08/31/23 04:30 37.2 C 84 23 100 08/31/23 04:15 37.2 C 80 18 100 08/31/23 04:15 110/75 08/31/23 04:15 17 08/31/23 04:00 119/82 08/31/23 04:00 37.2 C 83 16 100 08/31/23 04:00 08/31/23 04:00 100 08/31/23 04:00 85 102/53 L 08/31/23 03:45 112/75 08/31/23 03:45 37.2 C 83 16 100 08/31/23 03:38 108/75 08/31/23 03:38 37.2 C 85 18 100 08/31/23 03:30 37.2 C 79 18 100 08/31/23 03:00 90 17 99 08/31/23 02:30 37.1 C 84 16 100 08/31/23 02:30 101/67 08/31/23 02:15 123/86 08/31/23 02:15 37.2 C 75 16 100 08/31/23 02:06 37.2 C 75 16 100 08/31/23 01:30 37.2 C 74 16 100 08/31/23 01:30 116/78 08/31/23 01:15 37.1 C 73 16 100 08/31/23 01:15 128/89 08/31/23 01:00 126/72 08/31/23 01:00 37.1 C 71 16 100 08/31/23 00:45 117/80 08/31/23 00:45 37.1 C 71 16 100 08/31/23 00:30 123/84 08/31/23 00:30 37.0 C 66 16 100 08/31/23 00:15 132/79 08/31/23 00:15 37.0 C 79 16 100 O2 Del Method O2 Flow Rate FiO2 08/31/23 10:28 08/31/23 10:00 08/31/23 10:00 08/31/23 09:45 08/31/23 09:45 08/31/23 09:00 08/31/23 09:00 08/31/23 08:30 08/31/23 08:30 08/31/23 08:06 08/31/23 08:00 08/31/23 08:00 08/31/23 08:00 08/31/23 08:00 08/31/23 07:00 08/31/23 07:00 08/31/23 05:45 08/31/23 05:45 08/31/23 05:30 08/31/23 05:30 08/31/23 05:15 08/31/23 05:15 08/31/23 05:00 08/31/23 05:00 08/31/23 04:45 08/31/23 04:45 08/31/23 04:30 08/31/23 04:30 08/31/23 04:15 08/31/23 04:15 08/31/23 04:15 08/31/23 04:00 08/31/23 04:00 08/31/23 04:00 08/31/23 04:00 Mechanical Vent 08/31/23 04:00 08/31/23 03:45 08/31/23 03:45 08/31/23 03:38 08/31/23 03:38 08/31/23 03:30 08/31/23 03:00 08/31/23 02:30 08/31/23 02:30 08/31/23 02:15 08/31/23 02:15 08/31/23 02:06 08/31/23 01:30 08/31/23 01:30 08/31/23 01:15 08/31/23 01:15 08/31/23 01:00 08/31/23 01:00 08/31/23 00:45 08/31/23 00:45 08/31/23 00:30 08/31/23 00:30 08/31/23 00:15 08/31/23 00:15 PG Care Time/CCT Total # of Minutes Spent Total Time Spent with Patient: Total time spent is greater than 50% in coordination of care (as documented) at patient's floor/unit and/or counseling patient: Coding Level of Care Code 32377 IN/OBS CONSULT LVL 5,80M Diagnoses UTI (urinary tract infection) N39.0 Bacteremia R78.81 Left ureteral stone N20.1
--- NOTE | 2023-08-31 12:22 | Cardiology Progress Note ---
Date of Service August 31, 2023 Assessment & Plan (1) Cardiac arrest: Plan: -2nd event occurred yesterday in the face of a retroperitoneal bleed and hemorrhagic shock. -anticoagulation reversed yesterday. -pressor support being weaned today. -hemoglobin currently 7.6. -management per ICU team. (2) History of aortic valve replacement with metallic valve: Plan: -was to have DEO yesterday to rule out SBE, but was not clinically appropriate. -no elective DEO today as patient ICU sick and has numerous comorbidities. -resume anticoagulation when deemed appropriate by the ICU team. (3) Atrial fibrillation: Plan: -new onset during this hospitalization. -anticoagulation as described above. Admission and Anticipated Discharge Date Admission Date: August 23, 2023 Subjective Sedated on the ventilator. Physical Exam Physical Exam: In general is a well developed male resting in the ICU in no acute distress. HEENT exam notes an ET tube in place. Neck is supple with full carotid upstrokes. Jugular is pressure is difficult to assess. Cardiovascular exam reveals irregular rhythm with crisp mechanical valve sounds. Lungs are clear anteriorly. Abdomen is soft. Extremities reveal 1+ pretibial edema bilaterally Results & Data Vital Signs (Past 12 Hours) Vital Signs Temp Pulse Resp BP Pulse Ox Pulse Ox O2 Del Method 08/31/23 10:28 94 H 18 99 08/31/23 10:00 103/73 08/31/23 10:00 37.2 C 86 18 99 08/31/23 09:45 122/76 08/31/23 09:45 37.2 C 97 H 19 98 08/31/23 09:00 110/74 08/31/23 09:00 37.2 C 85 16 98 08/31/23 08:30 98/65 L 08/31/23 08:30 37.1 C 82 16 98 Mechanical Vent 08/31/23 08:06 86 17 100 08/31/23 08:00 123/78 08/31/23 08:00 37.2 C 84 16 97 08/31/23 08:00 94 H 08/31/23 08:00 08/31/23 07:00 37.2 C 76 23 100 Mechanical Vent 08/31/23 07:00 103/65 08/31/23 05:45 115/74 08/31/23 05:45 37.2 C 79 16 100 08/31/23 05:30 106/75 08/31/23 05:30 37.2 C 82 18 100 08/31/23 05:15 114/70 08/31/23 05:15 37.2 C 79 26 H 100 08/31/23 05:00 99/66 L 08/31/23 05:00 37.2 C 85 26 H 100 08/31/23 04:45 97/67 L 08/31/23 04:45 37.2 C 80 24 100 08/31/23 04:30 112/76 08/31/23 04:30 37.2 C 84 23 100 08/31/23 04:15 37.2 C 80 18 100 08/31/23 04:15 110/75 08/31/23 04:15 17 08/31/23 04:00 119/82 08/31/23 04:00 37.2 C 83 16 100 08/31/23 04:00 08/31/23 04:00 100 08/31/23 04:00 85 102/53 L 08/31/23 03:45 112/75 08/31/23 03:45 37.2 C 83 16 100 08/31/23 03:38 108/75 08/31/23 03:38 37.2 C 85 18 100 08/31/23 03:30 37.2 C 79 18 100 08/31/23 03:00 90 17 99 08/31/23 02:30 37.1 C 84 16 100 08/31/23 02:30 101/67 08/31/23 02:15 123/86 08/31/23 02:15 37.2 C 75 16 100 08/31/23 02:06 37.2 C 75 16 100 08/31/23 01:30 37.2 C 74 16 100 08/31/23 01:30 116/78 08/31/23 01:15 37.1 C 73 16 100 08/31/23 01:15 128/89 08/31/23 01:00 126/72 08/31/23 01:00 37.1 C 71 16 100 08/31/23 00:45 117/80 08/31/23 00:45 37.1 C 71 16 100 08/31/23 00:30 123/84 08/31/23 00:30 37.0 C 66 16 100 08/31/23 00:15 132/79 08/31/23 00:15 37.0 C 79 16 100 08/31/23 00:00 143/86 H 08/31/23 00:00 36.9 C 75 16 100 O2 Del Method O2 Flow Rate FiO2 08/31/23 10:28 24 08/31/23 10:00 08/31/23 10:00 08/31/23 09:45 08/31/23 09:45 08/31/23 09:00 08/31/23 09:00 08/31/23 08:30 08/31/23 08:30 08/31/23 08:06 08/31/23 08:00 08/31/23 08:00 08/31/23 08:00 08/31/23 08:00 08/31/23 07:00 08/31/23 07:00 08/31/23 05:45 08/31/23 05:45 08/31/23 05:30 08/31/23 05:30 08/31/23 05:15 08/31/23 05:15 08/31/23 05:00 08/31/23 05:00 08/31/23 04:45 08/31/23 04:45 08/31/23 04:30 08/31/23 04:30 08/31/23 04:15 08/31/23 04:15 08/31/23 04:15 08/31/23 04:00 08/31/23 04:00 08/31/23 04:00 08/31/23 04:00 Mechanical Vent 08/31/23 04:00 08/31/23 03:45 08/31/23 03:45 08/31/23 03:38 08/31/23 03:38 08/31/23 03:30 08/31/23 03:00 08/31/23 02:30 08/31/23 02:30 08/31/23 02:15 08/31/23 02:15 08/31/23 02:06 08/31/23 01:30 08/31/23 01:30 08/31/23 01:15 08/31/23 01:15 08/31/23 01:00 08/31/23 01:00 08/31/23 00:45 08/31/23 00:45 08/31/23 00:30 08/31/23 00:30 08/31/23 00:15 08/31/23 00:15 08/31/23 00:00 08/31/23 00:00 Diagnostic Findings complaint clerk notes rate controlled atrial fibrillation. PG Care Time/CCT Total # of Minutes Spent Total Time Spent with Patient: Total time spent is greater than 50% in coordination of care (as documented) at patient's floor/unit and/or counseling patient: Coding Level of Care Code 12073 SUB INP/OBS CARE 3/50MIN Diagnoses Cardiac arrest I46.9 History of aortic valve replacement with metallic valve Z95.4 Atrial fibrillation I48.91
--- NOTE | 2023-08-31 12:45 | Infectious Disease Progress Nt ---
Date of Service August 31, 2023 Assessment & Plan (1) Acute metabolic encephalopathy: (2) Septic shock: (3) Cardiac arrest: (4) Bacteremia: (5) UTI (urinary tract infection): Plan 57yo M with h/o uncontrolled DM, HTN, HLD, peripheral neuropathy, BPH with LUTS, GERD, gout, stroke with residual left hemiparesis, bicuspid AV s/p mechanical AVR 08/2011 on chronic anticoagulation who presented on 08/22 after [id number] cardiac PEA arrest with ROSC obtained after about 5 to 7 minutes. Intubated in the ED and started on pressors. Found to be febrile up to 40.7. Initial labs with WBC 19.63. Cr 2.70. Elevated AST/ALT, troponin, and lactate. PCT > 100. UA > 50 WBC. UCx with P mirabilis. BCx polymicrobial. CT head negative, CT chest with multifocal pneumonia at the bilateral bases. CTAP with severe bladder wall thickening with Davis present. He was admitted to the ICU and started on broad spectrum abx. TTE limited, normal LV function, AV sclerosis. CXR with left pleural effusion. Thoracentesis deferred due to elevated INR. Extubated 08/24. Noted to have a sacral decubitus ulcer and seen by surgery, bedside debridement was done on 08/25. CXR from 08/24 with bl pleural effusions L>R, left consolidation. ID consulted on 08/27 at which time patient noted to be altered. UA done which had > 50 WBC, UCx P mirabilis. BCx ngtd. CTH negative, CXR without consolidation. MRI with acute infarcts in R frontal and parietal lobes, questionable infarcts in left occipital and cerebellar hemisphere. Repeat TTE negative for vegetations on mitral, tricuspid, or pulmonic valves. Unable to get DEO due to mental status. Course c/b PEA arrest on 08/29 and transferred to ICU, s/p intubation and pressors. CXR with right basilar linear densities favor subsegmental atelectasis. CTAP with moderate- large R sided RP, extraperitoneal, and IM hematomas; obstructing 8mm stone in proximal left ureter causing hydronephrosis. CT chest with RLL densities persist and may be atelectasis and/or PNA, left basilar densities improved. Repeat CTA A/P showed small amount of active bleeding of stable RP hematoma, stable R iliopsoas hematoma. Patient currently awaiting urologic intervention for his renal calculus in setting of Proteus UTI. And also DEO when stable for Aerococcus bacteremia and r /o endocarditis in the setting of mechanical AV and multiple cerebral infarcts. He also has GNR growing from sacral cx. Currently on cefepime for GNR and Proteus and vancomycin to cover Aerococcus. # Large right RP bleed with extraperitoneal and intramuscular hematomas (including R iliopsoas) # Cardiac arrest, shock # Multiple infarcts on MRI brain # Bacteremia 2/2 P mirabilis and Aerococcus viridans # UTI 2/2 P mirabilis in setting of obstructing left ureteral calculus # Aspiration PNA from admission s/p tx # Decubitus ulcer s/p bedside debridement cx with GNR # H/o DM # PCN allergy # AMRIT - improved # Transaminitis 2/2 shock improved - continue vancomycin pharmacy dosed - continue cefepime 2g IV q8h - DEO when stable - urology consult for obstructing ureteral stone when stable - f/u all cultures blood cx, sputum cx, sacral cx ID will continue to follow. If questions or concerns, contact Infectious Disease Call Center . Becki Sheets MD [facility], Division of Infectious Diseases [facility]: [phone] Admission and Anticipated Discharge Date Admission Date: August 23, 2023 Subjective Subsequent visit was provided via telemedicine using two-way real-time interactive telecommunication between the patient and the telemedicine provider. For the duration of the visit, the provider was performing the assessment from a different facility than the patient. This includesuse of bluetooth stethoscope forauscultationperformed by the telepresenter that the telemedicine provider can hear if described in the physical exam. Press Service Reader contact information: Please call [facility] Call Center . (Phone Number For Physician Use Only) After establishing a telemedicine visit, patient was: Patient was verified with two unique identifiers, Patient/authorized rep acknowledged consent and understanding and Gave permission to continue telehealth session Time Spent with Patient: Subsequent => 55 min Patient intubated. Physical Exam Physical Exam: General: intubated and sedated Abdomen: soft Ext: no LE edema Skin: no rash Results & Data Vital Signs (Past 12 Hours) Vital Signs Temp Pulse Resp BP Pulse Ox Pulse Ox O2 Del Method 08/31/23 12:00 91/65 L 08/31/23 12:00 37.2 C 76 23 96 08/31/23 12:00 08/31/23 12:00 94 H 08/31/23 11:00 102/73 08/31/23 11:00 37.3 C 88 23 96 08/31/23 10:45 84/61 L 08/31/23 10:45 37.2 C 114 H 26 H 95 08/31/23 10:30 37.2 C 94 H 20 99 08/31/23 10:28 94 H 18 99 08/31/23 10:00 103/73 08/31/23 10:00 37.2 C 86 18 99 08/31/23 09:45 122/76 08/31/23 09:45 37.2 C 97 H 19 98 08/31/23 09:00 110/74 08/31/23 09:00 37.2 C 85 16 98 08/31/23 08:30 98/65 L 08/31/23 08:30 37.1 C 82 16 98 Mechanical Vent 08/31/23 08:06 86 17 100 08/31/23 08:00 123/78 08/31/23 08:00 37.2 C 84 16 97 08/31/23 08:00 94 H 08/31/23 08:00 08/31/23 07:00 37.2 C 76 23 100 Mechanical Vent 08/31/23 07:00 103/65 08/31/23 05:45 115/74 08/31/23 05:45 37.2 C 79 16 100 08/31/23 05:30 106/75 08/31/23 05:30 37.2 C 82 18 100 08/31/23 05:15 114/70 08/31/23 05:15 37.2 C 79 26 H 100 08/31/23 05:00 99/66 L 08/31/23 05:00 37.2 C 85 26 H 100 08/31/23 04:45 97/67 L 08/31/23 04:45 37.2 C 80 24 100 08/31/23 04:30 112/76 08/31/23 04:30 37.2 C 84 23 100 08/31/23 04:15 37.2 C 80 18 100 08/31/23 04:15 110/75 08/31/23 04:15 17 08/31/23 04:00 119/82 08/31/23 04:00 37.2 C 83 16 100 08/31/23 04:00 08/31/23 04:00 100 08/31/23 04:00 85 102/53 L 08/31/23 03:45 112/75 08/31/23 03:45 37.2 C 83 16 100 08/31/23 03:38 108/75 08/31/23 03:38 37.2 C 85 18 100 08/31/23 03:30 37.2 C 79 18 100 08/31/23 03:00 90 17 99 08/31/23 02:30 37.1 C 84 16 100 08/31/23 02:30 101/67 08/31/23 02:15 123/86 08/31/23 02:15 37.2 C 75 16 100 08/31/23 02:06 37.2 C 75 16 100 08/31/23 01:30 37.2 C 74 16 100 08/31/23 01:30 116/78 08/31/23 01:15 37.1 C 73 16 100 08/31/23 01:15 128/89 08/31/23 01:00 126/72 08/31/23 01:00 37.1 C 71 16 100 08/31/23 00:45 117/80 08/31/23 00:45 37.1 C 71 16 100 O2 Del Method O2 Flow Rate FiO2 08/31/23 12:00 08/31/23 12:00 08/31/23 12:00 08/31/23 12:00 08/31/23 11:00 08/31/23 11:00 08/31/23 10:45 08/31/23 10:45 08/31/23 10:30 08/31/23 10:28 08/31/23 10:00 08/31/23 10:00 08/31/23 09:45 08/31/23 09:45 08/31/23 09:00 08/31/23 09:00 08/31/23 08:30 08/31/23 08:30 08/31/23 08:06 08/31/23 08:00 08/31/23 08:00 08/31/23 08:00 08/31/23 08:00 08/31/23 07:00 08/31/23 07:00 08/31/23 05:45 08/31/23 05:45 08/31/23 05:30 08/31/23 05:30 08/31/23 05:15 08/31/23 05:15 08/31/23 05:00 08/31/23 05:00 08/31/23 04:45 08/31/23 04:45 08/31/23 04:30 08/31/23 04:30 08/31/23 04:15 08/31/23 04:15 08/31/23 04:15 08/31/23 04:00 08/31/23 04:00 08/31/23 04:00 08/31/23 04:00 Mechanical Vent 08/31/23 04:00 08/31/23 03:45 08/31/23 03:45 08/31/23 03:38 08/31/23 03:38 08/31/23 03:30 08/31/23 03:00 08/31/23 02:30 08/31/23 02:30 08/31/23 02:15 08/31/23 02:15 08/31/23 02:06 08/31/23 01:30 08/31/23 01:30 08/31/23 01:15 08/31/23 01:15 08/31/23 01:00 08/31/23 01:00 08/31/23 00:45 08/31/23 00:45 Laboratory Results Labs reviewed Diagnostic Findings Imaging reviewed
[2023-08-31] MEDS: PEPTAMEN INTENSE VHP 1.0 CAL 1,000 ML BAG OG SCH (12:59)
[2023-08-31] MEDS: TUBE FEEDING WATER FLUSH OG SCH (12:59)
[2023-08-31] MEDS ORDERED: STAT IV Infusion **Titration per Protocol STA (14:24)
[2023-08-31] MEDS: VASOPRESSIN 20 UNITS in 0.9 % SODIUM CHLORIDE 100 ML IV SCH (14:38)
--- NOTE | 2023-08-31 14:42 | Anesthesiology Consultation ---
Date of Service August 31, 2023 Assessment & Plan Chart Review Chart Review: Acceptable Risk for Surgery and Patient NOT seen in Pre Admission Testing Consults Requested none ASA ASA5 Proposed Anesthesia Anesthesia Type: MAC Risk / Benefits Reviewed With: PT / POA / Parent / Guardian, Accepts Plan and Informed Consent Obtained History Surgery Operation Date: 08/30/23 13:00 Proposed Procedures p Echo Transesophageal - Aris German MD Operation Date: 08/31/23 10:25 Proposed Procedures p Cystoscopy, Left Stent Placement - Oc Cohn MD Height/Weight Height: 6 ft Weight: 104.7 kg Allergies Allergy/AdvReac Type Severity Reaction Status Date / Time bee venom protein (honey bee) Allergy Unknown Verified 08/23/23 20:23 Iodinated Contrast Media Allergy Hives Verified 08/23/23 20:23 Penicillins Allergy Hives Verified 08/23/23 20:23 Medications Home Medications Medication Instructions Recorded Confirmed Last Taken allopurinol 100 mg tablet 100 mg PO QAM 08/23/23 08/23/23 Unknown amlodipine 10 mg tablet 10 mg PO QAM 08/23/23 08/23/23 Unknown aspirin 81 mg chewable tablet 81 mg PO DAILY 08/23/23 08/23/23 Unknown (Aspirin Childrens) atorvastatin 10 mg tablet 10 mg PO HS 08/23/23 08/23/23 Unknown carvedilol 25 mg tablet 25 mg PO BID 08/23/23 08/23/23 Unknown clonidine HCl 0.2 mg tablet 0.2 mg PO TID 08/23/23 08/23/23 Unknown famotidine 40 mg tablet 40 mg PO DAILYBB 08/23/23 08/23/23 Unknown furosemide 40 mg tablet 20 mg PO Q OTHER DAY 08/23/23 08/23/23 Unknown gabapentin 300 mg capsule 300 mg PO TID 08/23/23 08/23/23 Unknown montelukast 10 mg tablet 10 mg PO DAILY 08/23/23 08/23/23 Unknown pregabalin 150 mg capsule 150 mg PO BID 08/23/23 08/23/23 Unknown tamsulosin 0.4 mg capsule 0.4 mg PO QAM 08/23/23 08/23/23 Unknown warfarin 1 mg tablet 1 mg PO DAILY 08/23/23 08/23/23 Unknown warfarin 5 mg tablet 5 mg PO DAILY 08/23/23 08/23/23 Unknown oxycodone 15 mg tablet 15 mg PO Q4 PRN Severe Pain (Scale 08/28/23 08/28/23 Unknown Score 7-10) Active Medications Generic Name Dose Route Start Last Admin Trade Name Freq PRN Reason Stop Dose Admin Allopurinol 100 mg 08/28/23 09:00 08/31/23 09:35 Allopurinol 100 Mg Tab PO 09/27/23 08:59 100 mg QAM ZENA Administration Aspirin 81 mg 08/30/23 09:00 08/30/23 09:34 Aspirin 81 Mg Ectab PO 09/29/23 08:59 81 mg DAILY ZENA Administration Collagenase 1 appln 08/25/23 14:00 08/31/23 10:29 Collagenase Oint 30 Gm Tube EXT 09/01/23 13:59 1 appln DAILY ZENA Administration Dextrose 25 - 50 ml 08/23/23 23:00 08/24/23 21:02 Dextrose 50% 50 Ml Syringe IV 09/22/23 22:59 25 ml UD PRN Administration Hypoglycemia Protocol Protocol Pantoprazole Sodium 40 mg/ 10 mls @ 5 mls/min 08/24/23 11:00 08/31/23 10:30 Syringe IV 09/23/23 10:59 5 mls/min DAILY@1100 ZENA Administration Thiamine HCl 200 mg/ Sodium 52 mls @ 210 mls/hr 08/29/23 10:30 08/31/23 09:51 Chloride IV 09/28/23 10:29 Infused BID ZENA Infusion Hydrocortisone Sodium 1 mls @ 4 mls/min 08/30/23 21:00 08/31/23 09:36 Succinate 50 mg/ Syringe IV 09/29/23 20:59 4 mls/min Q12 ZENA Administration Norepinephrine Bitartrate 4 mg in 250 mls @ 47.985 mls/hr 08/30/23 14:45 08/31/23 14:05 Levophed/D5w IV 09/29/23 14:44 0.13 mcg/kg/min .Q5H13M ZENA 48 mls/hr Titration Protocol 0.13 MCG/KG/MIN Propofol 1,000 mg in 100 mls @ 0 mls/hr 08/30/23 15:45 08/31/23 09:27 Diprivan IV 09/02/23 15:44 0 mcg/kg/min .Q0M ZENA 0 mls/hr Titration Protocol 0 MCG/KG/MIN Fentanyl Citrate 2,500 mcg in 250 mls @ 2.5 mls/hr 08/30/23 15:45 08/31/23 06:52 Fentanyl Citrate IV 09/13/23 15:44 25 mcg/hr .Q96H ZENA 2.5 mls/hr Titration Protocol 25 MCG/HR Cefepime HCl 2,000 mg/ Syringe 20 mls @ 5 mls/min 08/30/23 16:00 08/31/23 07:36 IV 09/06/23 15:59 5 mls/min Q8H ZENA Administration Protocol Parenteral Electrolytes 1,000 mls @ 50 mls/hr 08/31/23 04:45 08/31/23 05:41 Plasma-Lyte A Ph 7.4 IV 09/30/23 04:44 80 mls/hr .Q20H ZENA Administration Vasopressin 20 units/ Sodium 101 mls @ 12.12 mls/hr 08/31/23 14:30 08/31/23 14:38 Chloride IV 09/30/23 14:29 0.04 unit/min .Q8H20M ZENA 12.1 mls/hr Administration 0.04 UNIT/MIN Insulin Aspart 0 units 08/29/23 00:00 08/31/23 11:49 Insulin Aspart Per Unit Charge SC 09/28/23 00:00 3 units Q6 ZENA Administration Insulin Glargine 0 units 08/26/23 09:15 08/31/23 09:33 Lantus Per Unit Charge OK 09/25/23 09:14 10 units BID ZENA Administration Protocol Nutritional Formula 1,000 ml 08/31/23 12:00 08/31/23 12:59 Peptamen Intense Vhp 1.0 Anders 1,000 Ml Bag OG 09/30/23 11:59 1,000 ml .See Protocol ZENA Administration Protocol Sterile Water 125 ml 08/31/23 12:00 08/31/23 12:59 Tube Feeding Water Flush OG 09/30/23 11:59 125 ml Q4H ZENA Administration NPO Date Last Intake of Fluids: 08/27/23 Date Last Intake of Solids: 08/27/23 Last Intake of Solids Comment: s/p CVA and intubated;NPO > 48 hours Past Medical History Medical History Acute CVA (cerebrovascular accident) GERD (gastroesophageal reflux disease) Hyperlipidemia Peripheral neuropathy Gout Hypertension BPH w urinary obs/LUTS Chronic anticoagulation History of stroke Exercise / Class Metabolic Activity III < 4 Walking/Shop/Light housework Past Anesthesia History No Hx of Anesthesia Complications and No Family Hx of Anesthesia Complications History of PONV No Hx of PONV and No Hx of Motion Sickness Social History Smoking Status: Never smoker Do You Dip or Chew Tobacco: Yes Hx Alcohol Use: No Hx Substance Use: No Physical Exam Vital Signs Last Vital Signs Temp 37.2 C 08/31/23 14:00 Pulse 82 08/31/23 14:00 Resp 17 08/31/23 14:00 BP 91/71 L 08/31/23 13:00 Pulse Ox 98 08/31/23 14:00 O2 Del Method Mechanical Vent 08/31/23 08:30 O2 Flow Rate 30 08/31/23 04:00 FiO2 24 08/31/23 13:55 Constitutional + obese, + altered mental status and + mechanically ventilated ENMT Mouth: no dentition abnormality Thyromental Distance: > or= 3.5 Finger Breadths Mallampati Class: II Neck normal visual inspection, trachea midline and + facial hair; neck extension not limited Respiratory + respiratory distress Auscultation: + diminished lung sounds, + crackles and + rales Cardiovascular Rate/Rhythm: + abnormal rate (Atrial Fibrillation/irreg.) and + abnormal rhythm (Atrial fibrillation/irregular) Heart Sounds: no murmur Vessels: no carotid bruit Chest (Breasts) Chest: + vascular access device or port (left femoral vein triple lumen catheter) Musculoskeletal Spine: normal cervical ROM Extremities: extremities normal to inspection Neurologic moves all extremities Motor/Sensory: no sensory deficit Psychiatric Orientation: + not alert and + not oriented x 3 Pt sedated , intubated , mechanically ventilated and neurologically obtunded Testing Laboratory Results 08/31/23 03:32 PT 21.0 Seconds (9.0-12.0) H 08/31/23 03:32 INR 2.0 (0.9-1.1) H 08/31/23 03:32 APTT 51 Seconds (21-31) H 08/26/23 04:42 Hemoglobin A1c 11.0 % (4.5-5.6) H 08/29/23 05:24 Urine Color Dark Yellow 08/28/23 09:25 Urine Appearance Turbid (Clear) A 08/28/23 09:25 Urine pH 5.5 (4.5-7.5) 08/28/23 09:25 Ur Specific [place] 1.019 (1.000-1.030) 08/28/23 09:25 Urine Protein 2+ (Negative) H 08/28/23 09:25 Urine Glucose (UA) Negative (Negative) 08/28/23 09:25 Urine Ketones Trace (Negative) H 08/28/23 09:25 Urine Nitrite Negative (Negative) 08/28/23 09:25 Ur Leukocyte Esterase 3+ (Negative) H 08/28/23 09:25 Urine WBC (Auto) >50 /hpf (0-5) H 08/28/23 09:25 Urine RBC (Auto) >20 /hpf (0-2) H 08/28/23 09:25 U Hyaline Cast (Auto) 11-20 /lpf (0-2) H 08/28/23 09:25 U Epithel Cells (Auto) 0-2 /hpf (0-2) 08/28/23 09:25 Urine Bacteria (Auto) 2+ (None Seen) H 08/28/23 09:25 Blood Type O Positive 08/30/23 17:54 Antibody Screen NEGATIVE 08/30/23 17:54 08/23/23 19:08 Aerobic Blood Culture - Final Blood Proteus mirabilis Anaerobic Blood Culture - Final Proteus mirabilis Coag neg staph not lugdunensis Aerococcus viridans 08/26/23 10:53 Aerobic Blood Culture - Final Blood No growth in Aerobic bottle after 5 days. Anaerobic Blood Culture - Final 08/26/23 10:20 Aerobic Blood Culture - Final Blood No growth in Aerobic bottle after 5 days. Anaerobic Blood Culture - Final No growth in Anaerobic bottle after 5 days. 08/30/23 15:20 Gram Stain - Final Sputum,Vent Suction Sputum Culture - Preliminary Light normal melva present, final report to follow. 08/30/23 Unknown Gram Stain - Final Buttock Wound Culture - Preliminary Gram negative bacilli Cate albicans/dubliniensis 08/28/23 09:25 Urine Culture - Final Urine,Straight Cath Proteus mirabilis 08/28/23 08:22 Aerobic Blood Culture - Preliminary Blood No growth in Aerobic bottle after 48 hours. Anaerobic Blood Culture - Final 08/28/23 07:58 Aerobic Blood Culture - Preliminary Blood No growth in Aerobic bottle after 48 hours. Anaerobic Blood Culture - Preliminary No growth in Anaerobic bottle after 48 hours. 08/23/23 19:08 Aerobic Blood Culture - Final Blood Aerococcus viridans Anaerobic Blood Culture - Final 08/23/23 19:16 Urine Culture - Final Urine,Clean Catch Proteus mirabilis 08/31/23 08/31/23 08/31/23 11:33 09:30 05:37 POC Glucose 221 H POC Glucose (other) 218 H 228 H Electrocardiogram Date: 08/30/23 Findings: + AFIB @ (@ 112,RVR;T wave abnormalities;septal infarct,age ?) and + RBBB Chest X-Ray Date: 08/30/23 Findings: + cardiomegaly and + infiltrate (bibasilar densities) Echocardiogram Date: 08/29/23 EF: 60% LV Function: normal RWMA: + none Other Findings: + LVH (mild) AV metal prosthesis cannot be assessed 2ndary to imaging artifact
[2023-08-31 14:46] LABS: Hematocrit (blood only) 21.4 % (42.0-52.0); Hemoglobin 7.2 g/dl (14.0-18.0)
[2023-08-31] MEDS ORDERED: ePHEDrine sulfate 50 MG/ML AMP IV PRN ×2 (14:53→16:44)
[2023-08-31] MEDS ORDERED: PROPOFOL IV EMULSION 10 MG/ML 20 ML VIAL IV ONE (15:19)
[2023-08-31] MEDS ORDERED: VASOPRESSIN 20 UNIT/ML VIAL ONE (15:19)
[2023-08-31] MEDS ORDERED: SODIUM CHLORIDE 0.9% 250 ML IV PRN (15:20)
[2023-08-31] MEDS ORDERED: MIDAZOLAM HCL 1 MG/ML 2ML VIAL ONE (15:20)
[2023-08-31] MEDS ORDERED: fentaNYL citrate PF 100 MCG/2 ML VIAL ONE (15:20)
[2023-08-31] MEDS ORDERED: ROCURONIUM BROMIDE 10 MG/ML 5 ML VIAL IV ONE ×2 (15:21→15:22)
--- NOTE | 2023-08-31 15:37 | Hospitalist Progress Note ---
Date of Service August 31, 2023 Assessment & Plan (1) Cardiac arrest: Plan: First cardiac arrest was outside of the hospital. This was secondary to septic shock. Extubated on 08/24, off of pressors. Patient recovered from it and was transferred out of the ICU. Still on treatment for septicemia. Second cardiac arrest was yesterday on 08/29, secondary to hemorrhagic shock from retroperitoneal and intramuscular bleed. Heparin drip has been held (2) Acute metabolic encephalopathy: Plan: Started around 08/25 as per patient's but worsened overnight on 08/26 and 08/27 with increased weakness, decreased responsiveness, mostly nonverbal Lactate elevated but otherwise procalcitonin trending downward, renal failure is resolved, some hypokalemia but not severe, sepsis is improving, afebrile Initially thought could be withdrawal from not receiving home Lyrica, gabapentin, or oxycodone CT head negative, but ordered MRI brain which showed multiple acute strokes- likely culprit Treating strokes Continue antibiotic therapy for bacteremia (3) Bacteremia: Plan: With septicemia and septic shock-febrile, with leukocytosis, septic shock and PEA arrest on arrival Aerococcus viridans and Proteus isolated in blood cultures. There is also coagulase-negative Staphylococcus which is likely a contaminant. His urine culture also grew Proteus initially and again on 08/27 Aerococcus is also most commonly a organism as per ID. Urine is most likely source but could be from sacral wound?---> check sacral wound swab Appreciate ID consultation DEO is indicated given multiple embolic appearing strokes-could be septic emboli. DEO was being planned 08/29. However the patient went into cardiac arrest and the procedure was postponed. After cardiac arrest, the antibiotic coverage was temporarily broadened to vancomycin and cefepime. I personally spoke to infectious disease who recommends de-escalation to ceftriaxone and daptomycin. Repeat blood cultures on 08/25 and 08/27 remain no growth to date Repeat urine culture on 08/27 with Proteus despite ceftriaxone-removing Davis There is a left ureteral obstructing stone for which urology has been consulted Urology plans to proceed with left ureteral stent placement to allow adequate drainage of infection and adequate source control. Continue ceftriaxone for Proteus. Continue daptomycin for coverage for the Aerococcus Microbiology lab sent out sensitivities to Aerococcus which will need to be followed Follow CBC, CMP, CK (4) Acute CVA (cerebrovascular accident): Plan: Brain MRI ordered on 08/27 due to ongoing expressive aphasia and metabolic encephalopathy, found multiple acute strokes-2 subcentimeter in right frontal and parietal lobes, 2 additional questionable punctate acute infarcts in left occipital and left cerebellar hemisphere He was only off of anticoagulation for 1-2 days at the most during this hospitalization after his heparin drip was discontinued for sacral wound bleeding-heparin drip was resumed but due to compatibility issues and poor IV access, was switched to Lovenox SQ 1 mg/kg twice daily. Seems less likely to be cardioembolic from clot, however could be septic emboli from endocarditis Could be from CPR/resuscitation and aortic arch plaque rupture? Dysphagia improved and right-sided weakness was improving. He had a video swallow on 08/28-able to advance diet to mildly thickened liquids and pured food Holding statin due to daptomycin therapy and also patient not able to take p.o. safely He has an allergy to IV contrast dye of hives but reports he has been able to tolerate it with Benadryl in the past-defer CTA head/neck/chest for now Carotid Dopplers negative Continue neuro checks and stroke scale every shift Lipid panel with very low cholesterol, hemoglobin A1c severely elevated at 11.0%-he is not on any diabetes medications-diabetes control addressed Neurology consult placed-thinks strokes due to sepsis, thinks that aspirin is not necessary but patient was on aspirin prior to admission for his previous cardiac issues so was continued. Currently held due to retroperitoneal bleed and hemorrhagic shock. Plan for DEO is being held for the time being due to patient's critical condition. Spoke to cardiology who would want to hold off on DEO currently (5) Atrial fibrillation: Plan: Developed August 25 p.m. and is new onset for patient Heparin drip was started but subsequently discontinued due to bleeding from the freshly debrided sacral decubitus. Was switched to therapeutic Lovenox He was treated for Coumadin toxicity with parenteral vitamin K on August 25, and INR was subtherapeutic Coumadin 7.5 mg was administered x 1 on 08/26 but then held due to NPO status--> resumed 08/29 as now able to take po Was started on Lovenox SQ 100 Mg every 12 hours for bridging Currently all anticoagulation being held due to retroperitoneal bleed and hemorrhagic shock Hold carvedilol Monitor on telemetry (6) Respiratory failure: Plan: Acute hypoxic respiratory failure. He was extubated on the morning of August 24. Resolved. Reintubated as part of code on 08/29. Currently intubated. (7) Aspiration pneumonia of both lower lobes: Plan: Suspected aspiration pneumonia in both lower lobes on admission but repeat chest x-ray is now clear. No need for antibiotic coverage for pneumonia at this point speech therapy following as he did aspirate at the bedside of thin liquids with water on 08/27 in the setting of newly diagnosed acute strokes Now with video swallow and he is aspirating thin liquids but is able to tolerate mildly thickened liquids and pured foods With improving leukocytosis, no fevers, no evidence of new infection at this time Had some gurgling requiring deep NG suctioning on 08/29, 2 hours after having small sip of thickened water with pills-no hypoxia, improved after suctioning (8) Decubitus ulcer: Plan: Debrided on August 25. Some minor bleeding occurred with heparin drip on August 25 and heparin drip was placed on hold and then was put back on anticoagulation. Currently in hemorrhagic shock due to retroperitoneal bleed. All anticoagulation on hold Continue local care. Appreciate general surgery consultation and recommendations-appreciate bedside debridement Appears blackened in color on 08/29 but Surgeon used silver nitrate to treat the bleeding Wound cx swab taken 08/29-follow (9) Chronic anticoagulation: Plan: With Coumadin. He has a mechanical valve and target INR is 2.5-3.5 INR was subtherapeutic at 2 on 08/29 and thus the patient was started on Lovenox bridge. He then had a retroperitoneal hematoma leading to hemorrhagic shock and cardiac arrest. Currently all anticoagulation on hold (10) Uncontrolled diabetes mellitus with hyperglycemia: Plan: Type 2 diabetes. His hemoglobin A1c is severely elevated at 11.0% Patient's reports that he was started on Lantus 60 units at bedtime but she only gave it to him once and he became significantly hypoglycemic and delirious and she has been fearful to give it ever since. 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 status and on daptomycin but would resume at high intensity dose due to strokes (18) Peripheral neuropathy: Plan: With chronic pain, takes pregabalin, gabapentin, and oxycodone as needed Resumed Lyrica 150 Mg p.o. twice daily Would not combine gabapentin with Lyrica-will continue to hold gabapentin Can take oxycodone as needed but this does make him drowsy Admission and Anticipated Discharge Date Admission Date: August 23, 2023 Subjective This is a 57-year-old male who had initially presented with a cardiac arrest/PEA on arrival. This was thought to be secondary to septic shock related to Proteus UTI/bacteremia. The patient's condition initially improved and the patient was downgraded from the ICU after being extubated and taken off of pressors. However during the course of the hospital stay, he was noted to be lethargic. He was found to have multiple strokes. Septic embolization remains a question. A DEO was being planned for 08/29. However patient had a second PEA arrest, CODE BLUE yesterday 08/29. This was due to hemorrhagic shock. The patient had a retroperitoneal bleed. Of note he was restarted on anticoagulation with Lovenox subcu after anticoagulation was held due to n.p.o. status The patient is currently in the ICU, intubated. Review of Systems Review of Systems: Unobtainable due to endotracheal tube Physical Exam Physical Exam: General: Intubated, sedated Heart: S1, S2/regular rate and rhythm, no murmur rubs or gallops Lungs: Clear to auscultation bilaterally. Normal effort Abdomen: Soft/nontender/nondistended. No hepatosplenomegaly Extremities: No clubbing/cyanosis. No edema Behavior: Unable to assess as intubated Results & Data Results & Data Vital Signs (Past 12 Hours) Vital Signs Temp Pulse Resp BP Pulse Ox Pulse Ox O2 Del Method 08/31/23 15:31 76 16 100 08/31/23 15:00 113/76 08/31/23 15:00 37.2 C 80 16 99 08/31/23 14:45 102/68 08/31/23 14:45 37.2 C 89 16 100 08/31/23 14:30 98/71 L 08/31/23 14:30 37.2 C 84 16 99 08/31/23 14:15 89/57 L 08/31/23 14:15 37.2 C 75 16 98 08/31/23 14:00 37.2 C 82 17 98 08/31/23 13:55 16 08/31/23 13:00 91/71 L 08/31/23 13:00 37.1 C 85 24 96 08/31/23 12:00 91/65 L 08/31/23 12:00 37.2 C 76 23 96 08/31/23 12:00 08/31/23 12:00 94 H 08/31/23 11:00 102/73 08/31/23 11:00 37.3 C 88 23 96 08/31/23 10:45 84/61 L 08/31/23 10:45 37.2 C 114 H 26 H 95 08/31/23 10:30 37.2 C 94 H 20 99 08/31/23 10:28 94 H 18 99 08/31/23 10:00 103/73 08/31/23 10:00 37.2 C 86 18 99 08/31/23 09:45 122/76 08/31/23 09:45 37.2 C 97 H 19 98 08/31/23 09:00 110/74 08/31/23 09:00 37.2 C 85 16 98 08/31/23 08:30 98/65 L 08/31/23 08:30 37.1 C 82 16 98 Mechanical Vent 08/31/23 08:06 86 17 100 08/31/23 08:00 74 08/31/23 08:00 123/78 08/31/23 08:00 37.2 C 84 16 97 08/31/23 08:00 Mechanical Vent 08/31/23 08:00 94 H 08/31/23 08:00 08/31/23 07:00 37.2 C 76 23 100 Mechanical Vent 08/31/23 07:00 103/65 08/31/23 05:45 115/74 08/31/23 05:45 37.2 C 79 16 100 08/31/23 05:30 106/75 08/31/23 05:30 37.2 C 82 18 100 08/31/23 05:15 114/70 08/31/23 05:15 37.2 C 79 26 H 100 08/31/23 05:00 99/66 L 08/31/23 05:00 37.2 C 85 26 H 100 08/31/23 04:45 97/67 L 08/31/23 04:45 37.2 C 80 24 100 08/31/23 04:30 112/76 08/31/23 04:30 37.2 C 84 23 100 08/31/23 04:15 37.2 C 80 18 100 08/31/23 04:15 110/75 08/31/23 04:15 17 08/31/23 04:00 119/82 08/31/23 04:00 37.2 C 83 16 100 08/31/23 04:00 08/31/23 04:00 100 08/31/23 04:00 85 102/53 L 08/31/23 03:45 112/75 08/31/23 03:45 37.2 C 83 16 100 08/31/23 03:38 108/75 08/31/23 03:38 37.2 C 85 18 100 O2 Del Method O2 Flow Rate FiO2 08/31/23 15:31 08/31/23 15:00 08/31/23 15:00 08/31/23 14:45 08/31/23 14:45 08/31/23 14:30 08/31/23 14:30 08/31/23 14:15 08/31/23 14:15 08/31/23 14:00 08/31/23 13:55 08/31/23 13:00 08/31/23 13:00 08/31/23 12:00 08/31/23 12:00 08/31/23 12:00 24 08/31/23 12:00 08/31/23 11:00 08/31/23 11:00 08/31/23 10:45 08/31/23 10:45 08/31/23 10:30 08/31/23 10:28 08/31/23 10:00 08/31/23 10:00 08/31/23 09:45 08/31/23 09:45 08/31/23 09:00 08/31/23 09:00 08/31/23 08:30 08/31/23 08:30 08/31/23 08:06 08/31/23 08:00 08/31/23 08:00 08/31/23 08:00 08/31/23 08:00 08/31/23 08:00 08/31/23 08:00 08/31/23 07:00 08/31/23 07:00 08/31/23 05:45 08/31/23 05:45 08/31/23 05:30 08/31/23 05:30 08/31/23 05:15 08/31/23 05:15 08/31/23 05:00 08/31/23 05:00 08/31/23 04:45 08/31/23 04:45 08/31/23 04:30 08/31/23 04:30 08/31/23 04:15 08/31/23 04:15 08/31/23 04:15 08/31/23 04:00 08/31/23 04:00 08/31/23 04:00 08/31/23 04:00 Mechanical Vent 30 08/31/23 04:00 08/31/23 03:45 08/31/23 03:45 08/31/23 03:38 08/31/23 03:38 Laboratory Results Abnormal lab results 08/30/23 08/30/23 08/30/23 Range/Units 15:12 15:14 15:35 WBC 18.61 H (4.8-10.8) K/ul RBC 2.93 L (4.70-6.10) M/uL Hgb 7.7 L (14.0-18.0) g/dl POC Hgb (14.0-18.0) g/dl Hct 24.3 L (42.0-52.0) % POC Hct (42-52) % MCHC 31.7 L (32.0-36.0) g/dL RDW Coeff of Malika (11.5-14.5) % Neut # (Auto) 13.58 H (1.40-6.50) K/uL Ada # (Auto) 1.72 H (0.11-0.59) K/uL Immature Gran # (Auto) 0.86 H (0.01-0.20) K/uL PT (9.0-12.0) Seconds INR (0.9-1.1) POC pH (7.35-7.45) POC pCO2 (35-46) mmHg POC pO2 (80-95) mmHg ABG pH (Temp Correct) (7.35-7.45) ABG pCO2 (Temp Corrct (35-46) mmHg POC ABG O2 Sat (90-95) % Chloride (98-107) mmol/L BUN 26 H (6-23) mg/dl BUN/Creatinine Ratio 28.9 H (10-20) Glucose 243 H (70-99(Fasting)) mg/dl POC Glucose (70-99) mg/dl POC Glucose (other) 236 H (70-99) mg/dl Lactate 4.0 H* (0.4-2.0) mmol/L Calcium (8.6-10.3) mg/dl Troponin I High Sens 30.5 H (0-20) pg/ml Total Protein 4.6 L D (6.0-8.3) gm/dl Albumin 2.2 L (3.4-5.0) gm/dl Globulin 2.4 L (2.5-4.0) gm/dl Procalcitonin 9.86 H (0-0.5) ng/ml Crossmatch 08/30/23 08/30/23 08/30/23 Range/Units 16:25 17:54 20:52 WBC (4.8-10.8) K/ul RBC (4.70-6.10) M/uL Hgb (14.0-18.0) g/dl POC Hgb 6.8 L* (14.0-18.0) g/dl Hct (42.0-52.0) % POC Hct 20 L* (42-52) % MCHC (32.0-36.0) g/dL RDW Coeff of Malika (11.5-14.5) % Neut # (Auto) (1.40-6.50) K/uL Ada # (Auto) (0.11-0.59) K/uL Immature Gran # (Auto) (0.01-0.20) K/uL PT (9.0-12.0) Seconds INR (0.9-1.1) POC pH 7.52 H* (7.35-7.45) POC pCO2 29 L (35-46) mmHg POC pO2 181 H (80-95) mmHg ABG pH (Temp Correct) 7.546 H* (7.35-7.45) ABG pCO2 (Temp Corrct 26 L (35-46) mmHg POC ABG O2 Sat 100.0 H (90-95) % Chloride (98-107) mmol/L BUN (6-23) mg/dl BUN/Creatinine Ratio (10-20) Glucose (70-99(Fasting)) mg/dl POC Glucose (70-99) mg/dl POC Glucose (other) 274 H (70-99) mg/dl Lactate 3.0 H* (0.4-2.0) mmol/L Calcium (8.6-10.3) mg/dl Troponin I High Sens (0-20) pg/ml Total Protein (6.0-8.3) gm/dl Albumin (3.4-5.0) gm/dl Globulin (2.5-4.0) gm/dl Procalcitonin (0-0.5) ng/ml Crossmatch See Detail 08/30/23 08/31/23 08/31/23 Range/Units 23:15 00:54 03:32 WBC 15.48 H 16.78 H (4.8-10.8) K/ul RBC 3.18 L 3.09 L (4.70-6.10) M/uL Hgb 8.7 L 8.6 L (14.0-18.0) g/dl POC Hgb (14.0-18.0) g/dl Hct 26.3 L 25.3 L (42.0-52.0) % POC Hct (42-52) % MCHC (32.0-36.0) g/dL RDW Coeff of Malika 14.6 H 14.6 H (11.5-14.5) % Neut # (Auto) 13.28 H (1.40-6.50) K/uL Ada # (Auto) 1.26 H (0.11-0.59) K/uL Immature Gran # (Auto) 0.43 H (0.01-0.20) K/uL PT 20.2 H 21.0 H (9.0-12.0) Seconds INR 1.9 H 2.0 H (0.9-1.1) POC pH (7.35-7.45) POC pCO2 (35-46) mmHg POC pO2 (80-95) mmHg ABG pH (Temp Correct) (7.35-7.45) ABG pCO2 (Temp Corrct (35-46) mmHg POC ABG O2 Sat (90-95) % Chloride 108 H (98-107) mmol/L BUN 33 H (6-23) mg/dl BUN/Creatinine Ratio 32.4 H (10-20) Glucose 244 H (70-99(Fasting)) mg/dl POC Glucose (70-99) mg/dl POC Glucose (other) 240 H (70-99) mg/dl Lactate (0.4-2.0) mmol/L Calcium 7.9 L (8.6-10.3) mg/dl Troponin I High Sens (0-20) pg/ml Total Protein (6.0-8.3) gm/dl Albumin (3.4-5.0) gm/dl Globulin (2.5-4.0) gm/dl Procalcitonin (0-0.5) ng/ml Crossmatch 08/31/23 08/31/23 08/31/23 Range/Units 04:24 05:37 09:06 WBC (4.8-10.8) K/ul RBC (4.70-6.10) M/uL Hgb 7.6 L (14.0-18.0) g/dl POC Hgb 7.5 L (14.0-18.0) g/dl Hct 22.2 L (42.0-52.0) % POC Hct 22 L (42-52) % MCHC (32.0-36.0) g/dL RDW Coeff of Malika (11.5-14.5) % Neut # (Auto) (1.40-6.50) K/uL Ada # (Auto) (0.11-0.59) K/uL Immature Gran # (Auto) (0.01-0.20) K/uL PT (9.0-12.0) Seconds INR (0.9-1.1) POC pH 7.47 H (7.35-7.45) POC pCO2 32 L (35-46) mmHg POC pO2 155 H (80-95) mmHg ABG pH (Temp Correct) 7.469 H (7.35-7.45) ABG pCO2 (Temp Corrct 32 L (35-46) mmHg POC ABG O2 Sat 100.0 H (90-95) % Chloride (98-107) mmol/L BUN (6-23) mg/dl BUN/Creatinine Ratio (10-20) Glucose (70-99(Fasting)) mg/dl POC Glucose (70-99) mg/dl POC Glucose (other) 228 H (70-99) mg/dl Lactate (0.4-2.0) mmol/L Calcium (8.6-10.3) mg/dl Troponin I High Sens (0-20) pg/ml Total Protein (6.0-8.3) gm/dl Albumin (3.4-5.0) gm/dl Globulin (2.5-4.0) gm/dl Procalcitonin (0-0.5) ng/ml Crossmatch 08/31/23 08/31/23 08/31/23 Range/Units 09:30 11:33 14:30 WBC (4.8-10.8) K/ul RBC (4.70-6.10) M/uL Hgb 7.2 L (14.0-18.0) g/dl POC Hgb (14.0-18.0) g/dl Hct 21.4 L (42.0-52.0) % POC Hct (42-52) % MCHC (32.0-36.0) g/dL RDW Coeff of Malika (11.5-14.5) % Neut # (Auto) (1.40-6.50) K/uL Ada # (Auto) (0.11-0.59) K/uL Immature Gran # (Auto) (0.01-0.20) K/uL PT (9.0-12.0) Seconds INR (0.9-1.1) POC pH (7.35-7.45) POC pCO2 (35-46) mmHg POC pO2 (80-95) mmHg ABG pH (Temp Correct) (7.35-7.45) ABG pCO2 (Temp Corrct (35-46) mmHg POC ABG O2 Sat (90-95) % Chloride (98-107) mmol/L BUN (6-23) mg/dl BUN/Creatinine Ratio (10-20) Glucose (70-99(Fasting)) mg/dl POC Glucose 221 H (70-99) mg/dl POC Glucose (other) 218 H (70-99) mg/dl Lactate (0.4-2.0) mmol/L Calcium (8.6-10.3) mg/dl Troponin I High Sens (0-20) pg/ml Total Protein (6.0-8.3) gm/dl Albumin (3.4-5.0) gm/dl Globulin (2.5-4.0) gm/dl Procalcitonin (0-0.5) ng/ml Crossmatch Diagnostic Findings Chest X-Ray 08/30/23 14:20 XR chest 1V portable HISTORY: Respiratory failure/arrest. COMPARISON: Chest 08/28/2023. FINDINGS: Endotracheal tube terminates approximately 3.4 cm from the danette. The nasogastric tube terminates in the proximal stomach. There are low lung volumes. No pneumothorax. No pleural effusions. Small right basilar linear densities favor subsegmental atelectasis. Prior cholecystectomy. No evidence for pulmonary edema. No acute fractures. The heart remains mildly enlarged. Poststernotomy changes and a cardiac valve prosthesis. IMPRESSION: 1. Satisfactory support line placement. 2. Right basilar linear densities favor subsegmental atelectasis. 3. Stable cardiomegaly. ACT 112: Negative or not required by law. Electronically signed by: Ulises Grant M.D. 08/30/2023 4:00 PM Abdomen/Pelvis CT 08/30/23 16:[address] WITHOUT CONTRAST CT DOSE: HISTORY: Hypotension. r/o bleed TECHNIQUE: Multiaxial CT images of the abdomen and pelvis were performed without contrast. A dose lowering technique was utilized adhering to the principles of ALARA. COMPARISON STUDY: Abdomen and pelvis CT 08/23/2023. FINDINGS: The lung bases will be reported on the same day chest CT. No pneumoperitoneum. No pneumatosis. Bilateral L5 pars defects are noted. Bilateral anterior rib fractures are better appreciated on the same day chest CT. No additional fractures identified. Nasogastric tube terminates in the fundus of the stomach. There is trace perihepatic ascites. Prior cholecystectomy. There is a small gallbladder remnant identified containing a few small gallstones. This remains unchanged. The unenhanced pancreas, spleen, and adrenal glands are unremarkable. Left-sided nephrolithiasis again noted. There is mild left hydronephrosis secondary to an obstructing 8 mm stone within the proximal left ureter on image 245. This remains unchanged. There is an additional 1 cm nonobstructing stone within the left renal pelvis, unchanged. No right-sided hydronephrosis. The bladder is decompressed by a Davis catheter. A left femoral vein catheter terminates in the left external iliac vein. Moderate fecal retention. No bowel wall thickening or obstruction. Normal appendix. Moderate body wall edema is noted. There is been interval of a moderate to large right retroperitoneal/extraperitoneal hematoma extending into the pelvis. There is associated 5.4 cm intramuscular hematoma within the right psoas muscle. There is a small amount of hemorrhage surrounding the decompressed bladder. There is also a small amount of intramuscular hemorrhage within the right lateral abdominal wall. The dominant retroperitoneal hematoma adjacent to the right iliopsoas muscle measures 15 x 8 x 5 cm. A small amount of the retroperitoneal hemorrhage overlaps the abdominal aorta and IVC. IMPRESSION: 1. Moderate to large right-sided retroperitoneal, extraperitoneal, and intramuscular hematomas as described above. 2. Satisfactory support line placement. 3. There is an obstructing 8 mm stone within the proximal left ureter resulting in a left hydronephrosis. This remains unchanged. 4. Evidence for prior cholecystectomy with a few small gallstones identified within the gallbladder remnant. This remains unchanged. 5. Additional findings as described above.. ACT 112: Negative or not required by law. Electronically signed by: Ulises Grant M.D. 08/30/2023 6:[address] 08/30/23 16:09 CT chest diagnostic wo con CT DOSE: 1674.8 mGy.cm HISTORY: Hypoxia TECHNIQUE: Multiaxial CT images of the chest were performed without contrast. A dose lowering technique was utilized adhering to the principles of ALARA. COMPARISON: Chest CT 08/23/2023. FINDINGS: The nasogastric tube terminates in the fundus of the stomach. The endotracheal tube terminates approximately 2 cm from the danette. Small amount of mucoid material seen within the distal trachea. Remaining central airways are patent. Patchy airspace opacities within the left lung base have improved. Patchy and linear airspace opacities within the right lower lobe posteriorly favor cysts. This could represent atelectasis or a pneumonia. No pneumothorax. Trace bilateral pleural effusions. No evidence for pulmonary edema. A small cluster of tree-in-bud nodular opacities again noted within the lingula. This favors a mild chronic bronchiolitis. A stable 3 mm nodule within the left lower lobe on image 97. A few additional scattered punctate calcified granulomas are seen within the lungs. The abdominal structures will be reported on the same day abdomen and pelvis CT. Nondisplaced right anterior second through acute rib fractures. There are poststernotomy changes. There are are also nondisplaced left anterior second through fourth rib fractures. These are present on the 08/23/[address] Normal thyroid gland. No mediastinal hematoma or lymphadenopathy. The heart is borderline enlarged. Aortic valve prosthesis is noted. Calcified plaque within the normal caliber abdominal aorta. Mild body wall edema. Skin thickening seen throughout the back. No hilar lymphadenopathy. No pericardial effusion. IMPRESSION: 1. Satisfactory support line placement. 2. Nondisplaced acute bilateral anterior rib fractures. These were present on the 08/23/2023 chest CTA. 3. No pneumothorax. 4. Right lower lobe densities persist and may represent atelectasis and/or pneumonia. 5. Left basilar densities have improved. 6. The abdominal structures will be reported separately. 7. Additional findings as described above. ACT 112: Negative or not required by law. Electronically signed by: Ulises Grant M.D. 08/30/2023 6:00 PM Abdomen/Pelvis CTA 08/30/23 18:55 CR Exam(s): CTA ABDOMEN + PELVIS With Contrast IV Amt: 118 ml optiray 320 EXAM: CT Angiography Abdomen and Pelvis With Intravenous Contrast CLINICAL HISTORY: Concern for active bleed. TECHNIQUE: Axial computed tomographic angiography images of the abdomen and pelvis with intravenous contrast. CTDI is 81.21 mGy and DLP is 2131.52 mGy-cm. Automated exposure control was utilized for the study. A dose lowering technique was utilized adhering to the principles of ALARA. MIP reconstructed images were created and reviewed. CONTRAST: Patient received 118 ml optiray 320 of IV contrast COMPARISON: CT abdomen and pelvis 08/30/2023 FINDINGS: VASCULATURE: Aorta: Mild atherosclerosis of the aorta is noted. Mild atherosclerosis. No abdominal aortic aneurysm. No dissection. Celiac trunk and mesenteric arteries: No acute findings. No occlusion or significant stenosis. Renal arteries: There is atherosclerosis of the origin of both renal arteries without significant stenosis. There is an accessory right renal artery. Iliac arteries: There is atherosclerosis of the bilateral common, internal and external iliac arteries without significant stenosis. Lung bases: Unremarkable. No mass. No consolidation. ABDOMEN: Liver: Unremarkable. No mass. Gallbladder and bile ducts: Cholecystectomy. Pancreas: Unremarkable. No ductal dilation. No mass. Spleen: Unremarkable. No splenomegaly. Adrenals: Unremarkable. No mass. Kidneys and ureters: Unremarkable. No hydronephrosis. No solid mass. Stomach and bowel: Unremarkable. No obstruction. No mucosal thickening. PELVIS: Appendix: No findings to suggest acute appendicitis. Bladder: A Davis catheter is present. Reproductive: Unremarkable as visualized. ABDOMEN and PELVIS: Intraperitoneal space: Unremarkable. No significant fluid collection. No free air. Retroperitoneal space: There is a small amount of active bleeding of the stable right retroperitoneal hematoma. A approximately 6 x 4 x 10 cm right iliopsoas hematoma is also present, and this hematoma however does not demonstrate active bleeding. Bones/joints: There are degenerative changes of the spine. No acute fracture. Soft tissues: Marked nonspecific body wall edema. Small bilateral fat-containing inguinal hernias. Lymph nodes: Unremarkable. No enlarged lymph nodes. IMPRESSION: 1. There is a small amount of active bleeding of the stable right retroperitoneal hematoma. 2. A approximately 6 x 4 x 10 cm right iliopsoas hematoma is also present, and this hematoma however does not demonstrate active bleeding. 3. Marked body wall edema. Communications: Call Doctor Above results Electronically signed by: [place]ia Hanson MD 08/30/23 20:08 PM PG Care Time/CCT Total # of Minutes Spent Total Time Spent with Patient: Total time spent is greater than 50% in coordination of care (as documented) at patient's floor/unit and/or counseling patient: Coding Level of Care Code 59447 SUB INP/OBS CARE 235MIN Diagnoses Cardiac arrest I46.9 Acute metabolic encephalopathy G93.41 Bacteremia R78.81 Acute CVA (cerebrovascular accident) I63.9 Atrial fibrillation I48.91 Respiratory failure J96.00 Chronicity: acute Respiratory failure complication: unspecified whether with hypoxia or hypercapnia Aspiration pneumonia of both lower lobes J69.0 Decubitus ulcer L89.90 Chronic anticoagulation Z79.01 Uncontrolled diabetes mellitus with hyperglycemia E11.65 History of stroke Z86.73 Hypertension I10 Gout M10.9 BPH w urinary obs/LUTS N40.1; N13.8 Hypokalemia E87.6 History of aortic valve replacement with metallic valve Z95.4 Hyperlipidemia E78.5 Peripheral neuropathy G62.9 (6) Respiratory failure Chronicity: acute Respiratory failure complication: unspecified whether with hypoxia or hypercapnia Qualified Code(s): J96.00 - Acute respiratory failure, unspecified whether with hypoxia or hypercapnia
[2023-08-31] MEDS: cefTRIAXone SODIUM 2,000 MG in DEXTROSE 5 % MINI-B 50 ML IV SCH (15:39)
[2023-08-31] MEDS: DIATRIZOATE MEGLUMINE 30% 100ML VIAL INSTIL ONE (16:08)
--- NOTE | 2023-08-31 16:28 | Operative Report ---
PG Post Operative Report Pre & Post Diagnosis Operation Date: 08/31/23 10:25 Preoperative diagnosis: UTI, left ureteral stone Postoperative diagnosis: UTI, left ureteral stone I identified the patient and participated in the time-out.: Yes Procedure Operation Date: 08/31/23 10:25 Cystoscopy, left retrograde pyelogram, left ureteral stent placement Surgeon Oc Cohn MD Senior Service Aide None Estimated Blood Loss 0 Findings See Below Successful left ureteral stent placement. Specimens Urine from left kidney for culture Drains 6 Canadian by 26 cm double-J ureteral stent in the left ureter Anesthesia Type MAC Complications none Disposition Accompanied Patient To Recovery: Yes Disposition: Surgical ICU Indications This is a 57-year-old male currently admitted to the ICU. Recent CT scan demonstrated a left ureteral stone as well as a stone in the kidney. He was also found to have a urinary tract infection. He presents for left ureteral stent placement. Description of Procedure The patient was identified in the ICU preoperatively. Informed consent was obtained from his POA. He was marked on the left side, then was taken to the operating room where anesthesia was initiated. He was placed in the dorsal lithotomy position with all pressure points appropriately padded. He was prepped and draped in the usual sterile fashion and a preoperative timeout was performed. A well-lubricated cystoscope was inserted per urethra and panendoscopy was performed. The pendulous urethra was normal with no strictures or mucosal abno rmalities. The prostate was of normal size. His bladder appeared irritated. There is a small stone in the bladder which may have been related to debris forming on the catheter balloon. Ureteral orifices were in orthotopic position. A 5 Canadian open-ended catheter was inserted and used to intubate the left ureteral orifice. A zip wire was advanced up to the kidney under fluoroscopic guidance. In this position, the open-ended catheter was advanced and a sample of urine was aspirated. This was sent for culture. I instilled a small amount of Cystografin to align the contour of the kidney. There was not significant hydronephrosis. There seemed to be some filling defects suspicious for stones. The wire was then readvanced up to the kidney. Over the wire, a 6 Canadian x 26 cm double-J ureteral stent was advanced. When the wire was removed, there was a good curl in the kidney under fluoroscopic guidance. A curl was visualized in the bladder with the cystoscope. At this point the bladder was drained and all instrumentation was removed. The case was concluded. He was returned to the ICU. I attest to the content of the Intraoperative Record and any orders documented therein. Any exceptions are noted below.
--- NOTE | 2023-08-31 16:33 | Fluoroscopy Report ---
FL retrograde includes kub CLINICAL HISTORY: LEFT STENT PLACEMENT COMPARISON STUDY: None. FLUOROSCOPY TIME: 10 seconds FLUOROSCOPY IMAGES: 4 Exposure dose: Not obtained. FINDINGS: Retrograde opacification of the left renal collecting system followed by placement of a lef t ureteral stent. Only the proximal portion of the stent is identified and appears in good position. IMPRESSION: Fluoroscopic assistance as above. ACT 112: Negative or not required by law. Electronically signed by: Ulises Grant M.D. 08/31/2023 4:32 PM
--- NOTE | 2023-08-31 16:47 | Anesthesiology Progress Note ---
Date of Service August 31, 2023 Anesthesia Post Procedure Vital Signs Vital Signs: Temp Pulse Resp BP Pulse Ox Pulse Ox O2 Del Method 08/31/23 15:31 76 16 100 08/31/23 15:00 113/76 08/31/23 15:00 37.2 C 80 16 99 08/31/23 14:45 102/68 08/31/23 14:45 37.2 C 89 16 100 08/31/23 14:30 98/71 L 08/31/23 14:30 37.2 C 84 16 99 08/31/23 14:15 89/57 L 08/31/23 14:15 37.2 C 75 16 98 08/31/23 14:00 37.2 C 82 17 98 08/31/23 13:55 16 08/31/23 13:00 91/71 L 08/31/23 13:00 37.1 C 85 24 96 08/31/23 12:00 91/65 L 08/31/23 12:00 37.2 C 76 23 96 08/31/23 12:00 08/31/23 12:00 94 H 08/31/23 11:00 102/73 08/31/23 11:00 37.3 C 88 23 96 08/31/23 10:45 84/61 L 08/31/23 10:45 37.2 C 114 H 26 H 95 08/31/23 10:30 37.2 C 94 H 20 99 08/31/23 10:28 94 H 18 99 08/31/23 10:00 103/73 08/31/23 10:00 37.2 C 86 18 99 08/31/23 09:45 122/76 08/31/23 09:45 37.2 C 97 H 19 98 08/31/23 09:00 110/74 08/31/23 09:00 37.2 C 85 16 98 08/31/23 08:30 98/65 L 08/31/23 08:30 37.1 C 82 16 98 Mechanical Vent 08/31/23 08:06 86 17 100 08/31/23 08:00 74 08/31/23 08:00 123/78 08/31/23 08:00 37.2 C 84 16 97 08/31/23 08:00 Mechanical Vent 08/31/23 08:00 94 H 08/31/23 08:00 08/31/23 07:00 37.2 C 76 23 100 Mechanical Vent 08/31/23 07:00 103/65 08/31/23 05:45 115/74 08/31/23 05:45 37.2 C 79 16 100 08/31/23 05:30 106/75 08/31/23 05:30 37.2 C 82 18 100 08/31/23 05:15 114/70 08/31/23 05:15 37.2 C 79 26 H 100 08/31/23 05:00 99/66 L 08/31/23 05:00 37.2 C 85 26 H 100 08/31/23 04:45 97/67 L 08/31/23 04:45 37.2 C 80 24 100 08/31/23 04:30 112/76 08/31/23 04:30 37.2 C 84 23 100 08/31/23 04:15 37.2 C 80 18 100 08/31/23 04:15 110/75 08/31/23 04:15 17 08/31/23 04:00 119/82 08/31/23 04:00 37.2 C 83 16 100 08/31/23 04:00 08/31/23 04:00 100 08/31/23 04:00 85 102/53 L 08/31/23 03:45 112/75 08/31/23 03:45 37.2 C 83 16 100 08/31/23 03:38 108/75 08/31/23 03:38 37.2 C 85 18 100 08/31/23 03:30 37.2 C 79 18 100 08/31/23 03:00 90 17 99 08/31/23 02:30 37.1 C 84 16 100 08/31/23 02:30 101/67 08/31/23 02:15 123/86 08/31/23 02:15 37.2 C 75 16 100 08/31/23 02:06 37.2 C 75 16 100 08/31/23 01:30 37.2 C 74 16 100 08/31/23 01:30 116/78 08/31/23 01:15 37.1 C 73 16 100 08/31/23 01:15 128/89 08/31/23 01:00 126/72 08/31/23 01:00 37.1 C 71 16 100 08/31/23 00:45 117/80 08/31/23 00:45 37.1 C 71 16 100 08/31/23 00:30 123/84 08/31/23 00:30 37.0 C 66 16 100 08/31/23 00:15 132/79 08/31/23 00:15 37.0 C 79 16 100 08/31/23 00:00 143/86 H 08/31/23 00:00 36.9 C 75 16 100 08/30/23 23:45 134/80 08/30/23 23:45 36.9 C 77 16 100 08/30/23 23:45 16 08/30/23 23:43 08/30/23 23:43 100 08/30/23 23:43 74 119/60 08/30/23 23:43 80 08/30/23 23:30 129/81 08/30/23 23:30 36.8 C 73 16 100 08/30/23 23:15 141/100 H 08/30/23 23:15 36.8 C 72 16 100 08/30/23 23:00 135/84 08/30/23 23:00 36.8 C 71 16 100 08/30/23 22:45 142/87 H 08/30/23 22:45 36.7 C 73 16 100 08/30/23 22:30 147/90 H 08/30/23 22:30 36.7 C 74 16 100 08/30/23 22:15 167/97 H 08/30/23 22:15 36.7 C 75 16 100 08/30/23 22:00 147/91 H 08/30/23 22:00 36.8 C 79 16 100 08/30/23 21:59 36.8 C 72 18 133/66 100 08/30/23 21:45 155/99 H 08/30/23 21:45 36.8 C 70 16 100 08/30/23 21:44 36.8 C 74 18 129/70 100 08/30/23 21:30 156/99 H 08/30/23 21:30 36.7 C 74 16 100 08/30/23 21:28 36.7 C 75 18 127/61 100 08/30/23 21:18 36.7 C 71 18 126/65 100 08/30/23 21:15 156/95 H 08/30/23 21:15 36.7 C 72 16 100 08/30/23 21:00 143/98 H 08/30/23 21:00 36.7 C 75 16 100 08/30/23 20:48 36.7 C 77 18 122/63 100 08/30/23 20:45 145/88 H 08/30/23 20:45 36.6 C 76 16 100 08/30/23 20:33 36.7 C 79 18 124/62 100 08/30/23 20:30 36.5 C 77 16 100 08/30/23 20:30 125/91 08/30/23 20:17 36.5 C 81 18 129/61 100 08/30/23 20:15 151/99 H 08/30/23 20:15 36.5 C 82 14 100 08/30/23 20:12 36.7 C 77 18 124/62 100 08/30/23 20:11 169/112 H 08/30/23 20:11 36.5 C 98 H 14 100 08/30/23 20:00 08/30/23 20:00 100 08/30/23 20:00 86 126/62 08/30/23 20:00 Mechanical Vent 08/30/23 20:00 93 H 13 100 08/30/23 20:00 23 08/30/23 19:59 36.5 C 14 100 08/30/23 19:15 104/74 08/30/23 19:15 36.6 C 83 19 100 08/30/23 19:12 36.5 C 98 H 18 139/72 100 08/30/23 19:00 107/65 08/30/23 19:00 36.6 C 75 16 100 Mechanical Vent 08/30/23 18:54 36.6 C 74 16 106/66 100 08/30/23 18:45 36.6 C 76 16 100 08/30/23 18:31 111/73 08/30/23 18:31 36.6 C 75 16 100 08/30/23 18:30 36.6 C 76 17 100 08/30/23 18:15 36.6 C 65 17 100 08/30/23 18:00 96/52 L 08/30/23 18:00 36.5 C 82 24 100 08/30/23 17:52 93/67 L 08/30/23 17:52 83 16 99 08/30/23 17:03 16 O2 Del Method O2 Flow Rate FiO2 08/31/23 15:31 08/31/23 15:00 08/31/23 15:00 08/31/23 14:45 08/31/23 14:45 08/31/23 14:30 08/31/23 14:30 08/31/23 14:15 08/31/23 14:15 08/31/23 14:00 08/31/23 13:55 24 08/31/23 13:00 08/31/23 13:00 08/31/23 12:00 08/31/23 12:00 08/31/23 12:00 08/31/23 12:00 08/31/23 11:00 08/31/23 11:00 08/31/23 10:45 08/31/23 10:45 08/31/23 10:30 08/31/23 10:28 08/31/23 10:00 08/31/23 10:00 08/31/23 09:45 08/31/23 09:45 08/31/23 09:00 08/31/23 09:00 08/31/23 08:30 08/31/23 08:30 08/31/23 08:06 08/31/23 08:00 08/31/23 08:00 08/31/23 08:00 08/31/23 08:00 08/31/23 08:00 08/31/23 08:00 08/31/23 07:00 08/31/23 07:00 08/31/23 05:45 08/31/23 05:45 08/31/23 05:30 08/31/23 05:30 08/31/23 05:15 08/31/23 05:15 08/31/23 05:00 08/31/23 05:00 08/31/23 04:45 08/31/23 04:45 08/31/23 04:30 08/31/23 04:30 08/31/23 04:15 08/31/23 04:15 08/31/23 04:15 08/31/23 04:00 08/31/23 04:00 08/31/23 04:00 30 08/31/23 04:00 Mechanical Vent 30 08/31/23 04:00 08/31/23 03:45 08/31/23 03:45 08/31/23 03:38 08/31/23 03:38 08/31/23 03:30 08/31/23 03:00 08/31/23 02:30 08/31/23 02:30 08/31/23 02:15 08/31/23 02:15 08/31/23 02:06 08/31/23 01:30 08/31/23 01:30 08/31/23 01:15 08/31/23 01:15 08/31/23 01:00 08/31/23 01:00 08/31/23 00:45 08/31/23 00:45 08/31/23 00:30 08/31/23 00:30 08/31/23 00:15 08/31/23 00:15 08/31/23 00:00 08/31/23 00:00 08/30/23 23:45 08/30/23 23:45 08/30/23 23:45 40 08/30/23 23:43 40 08/30/23 23:43 Mechanical Vent 40 08/30/23 23:43 08/30/23 23:43 08/30/23 23:30 08/30/23 23:30 08/30/23 23:15 08/30/23 23:15 08/30/23 23:00 08/30/23 23:00 08/30/23 22:45 08/30/23 22:45 08/30/23 22:30 08/30/23 22:30 08/30/23 22:15 08/30/23 22:15 08/30/23 22:00 08/30/23 22:00 08/30/23 21:59 08/30/23 21:45 08/30/23 21:45 08/30/23 21:44 08/30/23 21:30 08/30/23 21:30 08/30/23 21:28 08/30/23 21:18 08/30/23 21:15 08/30/23 21:15 08/30/23 21:00 08/30/23 21:00 08/30/23 20:48 08/30/23 20:45 08/30/23 20:45 08/30/23 20:33 08/30/23 20:30 08/30/23 20:30 08/30/23 20:17 08/30/23 20:15 08/30/23 20:15 08/30/23 20:12 08/30/23 20:11 08/30/23 20:11 08/30/23 20:00 40 08/30/23 20:00 Mechanical Vent 40 08/30/23 20:00 08/30/23 20:00 40 08/30/23 20:00 08/30/23 20:00 40 08/30/23 19:59 08/30/23 19:15 08/30/23 19:15 08/30/23 19:12 08/30/23 19:00 08/30/23 19:00 08/30/23 18:54 08/30/23 18:45 08/30/23 18:31 08/30/23 18:31 08/30/23 18:30 08/30/23 18:15 08/30/23 18:00 08/30/23 18:00 08/30/23 17:52 08/30/23 17:52 08/30/23 17:03 40 Pain Intensity Right Buttock: Pain Intensity: 5 Head: Pain Intensity: 8 Sacrum: Pain Intensity: 10 Lower Back: Pain Intensity: 10 Transfer of Care Handoff Completed per policy Notes Mental Status: see notes below Patient Amnestic to Procedure: Yes Nausea / Vomiting: adequately controlled Pain: see Notes below Airway Patency, RR, SpO2: see Notes below BP & HR: see Notes below Hydration State: see Notes below Anesthetic Complications: no major complications apparent Notes: Patient is critical , intubated, and mechanically ventilated.
[2023-08-31] MEDS ORDERED: VANCOMYCIN HCL 1,250 MG in SODIUM CHLORIDE 0.9% 250 ML IV SCH (17:00)
[2023-08-31] MEDS: DAPTOmycin 800 MG in SYRINGE 0 ML IV SCH (17:05)
[2023-08-31 23:05] LABS: Hematocrit (blood only) 26.1 % (42.0-52.0); Hemoglobin 8.8 g/dl (14.0-18.0)
[2023-09-01 04:52] LABS: Basophils # (auto) 0.02 K/uL (0.00-0.20); Basophils % (auto) 0.1 %; Hematocrit (blood only) 23.5 % (42.0-52.0); Hemoglobin 8.1 g/dl (14.0-18.0); Immature Granulocytes # (auto) 0.66 K/uL (0.01-0.20); Immature Granulocytes % (auto) 3.2 %; Lymphocytes # (auto) 2.55 K/uL (1.20-3.40); Lymphocytes % (auto) 12.4 %; Mean Corpuscular Hemoglobin 26.9 pg (25.0-34.0); Mean Corpuscular Hgb Conc 34.5 g/dL (32.0-36.0); Mean Corpuscular Volume 78.1 fL (80.0-100.0); Mean Platelet Volume 11.3 fL (9.4-12.4); Monocytes # (auto) 1.85 K/uL (0.11-0.59); Neutrophils # (auto) 15.47 K/uL (1.40-6.50); Neutrophils % (auto) 75.3 %; Nucleated RBC # (auto) 0.03 K/uL (0.00-0.12); Nucleated RBC % (auto) 0.1 %; Platelet Count 154 K/uL (130-400); RDW Coefficient of Variation 17.1 % (11.5-14.5); RDW Standard Deviation 48.3 fL (36.4-46.3); Red Blood Count 3.01 M/uL (4.70-6.10); White Blood Count 20.55 K/ul (4.8-10.8)
[2023-09-01 05:09] LABS: BUN Creatinine Ratio 33.1 (10-20); Creatinine Clr Calc Pharmacy 83.2 ml/min; Est GFR (Non-African American) 65.6 ml/min; Magnesium 1.9 mg/dl (1.7-2.4); Phosphorus 4.2 mg/dl (2.5-4.9); Potassium 3.6 mmol/L (3.5-5.1)
[2023-09-01 05:16] LABS: INR 1.4 (0.9-1.1); Prothrombin Time 14.7 Seconds (9.0-12.0)
--- NOTE | 2023-09-01 07:09 | XRay Report ---
XR chest 1V portable HISTORY: Respiratory failure. evaluate lung delcid/tubes/lines while intubated COMPARISON: Chest 08/30/2023. FINDINGS: Endotracheal tube terminates 3.2 cm from the danette. Nasogastric tube terminates below the diaphragm. Poststernotomy changes and a cardiac valve prosthesis are noted. No pneumothorax. No pleur al effusions. Bibasilar densities have slightly improved. The heart remains enlarged. No evidence for pulmonary edema. The patient's bilateral rib fractures are better appreciated on the recent chest CT A. IMPRESSION: 1. Satisfactory support line placement. 2. Patchy bibasilar densities have slightly improved. ACT 112: Negative or not required by law. Electronically signed by: Ulises Grant M.D. 09/01/2023 7:07 AM
--- NOTE | 2023-09-01 07:36 | Critical Care Progress Note ---
Date of Service September 01, 2023 Assessment & Plan (1) Septic shock: (2) Respiratory failure: (3) Cardiac arrest: (4) Uncontrolled diabetes mellitus with hyperglycemia: (5) History of stroke: (6) Chronic anticoagulation: (7) Sepsis with acute organ dysfunction and septic shock: Plan Impression:: 57-year-old male with severe sepsis with septic shock secondary to Proteus UTI/bacteremia with prior history of stroke admitted with out of hospital cardiac arrest- PEA on arrival. Patient was initially in the ICU and then downgraded. He had another hypotensive and PEA arrest on 08/30/2023. Sent to ICU for further management Recommendations Neuro - -- Encephalopathy secondary to acute CVA Likely embolic stroke, appreciated on MRI 08/30/23 MRI of the brain 08/28/2023: 2 subcentimeter acute infarcts in the right frontal and parietal lobe. Old infarcts in the right thalamus in the cerebral hemisphere. Atrophy and microvascular ischemic changes -- History of CVA in the past with left hemiparesis Cardiac - -- PEA Etiology seems to be hemorrhagic shock Continue with vasopressor support to keep MAP greater than 65 EKG 08/30/2023 1534: A-fib, right bundle branch block, left axis deviation, no ST-T wave changes appreciated -- History of mechanical heart valve On warfarin at home Currently on Lovenox --A-fib On warfarin at home Respiratory - -- VDRF for airway protection secondary to cardiac arrest Continue with ventilatory support Keep RASS -1 Daily sedation holidays and SBT's -- Multiple rib fractures Likely from chest compressions from the initial admission GI - -- Aspiration Patient failed swallow eval 08/29/2023 RENAL/LYTES -- Monitor BUNs/creatinine Avoid nephrotoxic medications --History of gout On allopurinol --Left-sided ureter stone with hydronephrosis S/p cystoscopy and stent placement 08/31/2023 ENDO - -- Diabetes type 2 ICU hypoglycemia protocol HEME - -- Acute blood loss anemia from retroperitoneal bleed S/p 2 units PRBC, protamine and FFP on 08/30/2023, another 2 units PRBC given 08/31/2023 Vitamin K 2.5 mg given on 08/31/2019 Monitor H&H Not a candidate for intervention right now after discussion with IR at [facility] Continue to hold anticoagulation for another 24 hours and then resume heparin drip given the patient has mechanical heart well ID - -- Proteus mirabilis and Aerococcus viridans Has been on daptomycin as well as Rocephin Will change Rocephin to cefepime and add Flagyl because of aspiration --Decubitus ulcer with Pseudomonas aeruginosa S/p debridement on the previous ICU visit Wound culture growing Pseudomonas which is resistant to cefepime and intermediate to Zosyn --Prophylaxis VTE: Lovenox GI: Pantoprazole Lines: Left femoral TLC, left femoral radial, ETT, Davis changed 08/30/2023 Diet: Tube feeds Plan: In/out: +3 L, urine output finding 85 Continue with hydrocortisone 50 mg twice daily Continue with vasopressor support to keep MAP greater than 65 Repeat H&H today Potassium magnesium being replaced Trial of extubation today Not a candidate for intervention right now after discussion with IR at [facility] on 08/30/2023 I have personally spent 40 minutes of critical care time in the direct management of this patient. This is a life/limb threatening event. This includes time spent evaluating patient, direct bedside care, chart review, placing orders, interpretation of diagnostic studies, discussion with consultants, patient, and family members, as well as other required patient management activities. This time is exclusive of all separately billable procedures, and teaching time and separate from and in addition to any other critical care service time. Please note the above document was generated using voice recognition software. It may contain grammatical, syntax or spelling errors. Admission and Anticipated Discharge Date Admission Date: August 23, 2023 Subjective Patient seen and examined at bedside. No acute distress, no adverse events overnight Patient was on 25 of fentanyl. On 0.03 of Levophed. MAP in low 70s He was RASS -1, answering all the questions appropriately Denied any chest pain, did complain of some abdominal pain. Did get 2 more units of PRBC yesterday Has been afebrile Review of Systems 2 Review of Systems: All systems reviewed & are unremarkable except as noted in Subjective Physical Exam 2 Physical Exam: Constitutional: No acute distress HEENT: PERRLA Respiratory system: Decreased air entry bilaterally, no wheeze, no rhonchi, positive crackles bilaterally CVS: S1-S2 positive, mechanical heart sound Abdomen: Soft, right lower quadrant tenderness, no rebound, nondistended, positive bowel sounds x4 Extremities: + 1 pulses bilaterally radialis/ dorsalis pedis, no cyanosis, +1 pitting edema bilateral lower extremity, +1 pitting edema left upper extremity Neuro: Sedated, RASS -1, following commands Psych: Normal mood and affect G/U: Positive Davis Skin: no rashes, warm and dry Lymphatic: no cervical or axillary lymphadenopathy Results & Data Results & Data Vital Signs (Past 12 Hours) Vital Signs Temp Pulse Resp BP Pulse Ox O2 Del Method FiO2 09/01/23 04:30 37.0 C 80 16 96 09/01/23 04:30 121/84 09/01/23 04:19 72 16 97 24 09/01/23 04:15 105/78 09/01/23 04:15 37.0 C 90 16 97 09/01/23 04:00 37.0 C 87 16 96 09/01/23 04:00 100/70 09/01/23 04:00 24 09/01/23 04:00 72 105/59 L 09/01/23 03:45 117/73 09/01/23 03:45 37.0 C 92 H 16 96 09/01/23 03:30 107/69 09/01/23 03:30 36.9 C 80 16 96 09/01/23 03:15 37.0 C 77 16 97 09/01/23 03:15 123/76 09/01/23 03:00 36.9 C 91 H 16 97 09/01/23 02:45 113/80 09/01/23 02:45 36.9 C 81 16 97 09/01/23 02:30 36.9 C 82 16 97 09/01/23 02:16 110/76 09/01/23 02:16 36.9 C 74 16 96 09/01/23 02:00 36.9 C 80 16 97 09/01/23 01:30 37.0 C 71 16 97 09/01/23 01:15 36.9 C 81 16 97 09/01/23 01:15 101/75 09/01/23 01:00 36.9 C 84 16 97 09/01/23 01:00 97/67 L 09/01/23 00:45 36.9 C 83 16 96 09/01/23 00:45 110/75 09/01/23 00:31 36.9 C 91 H 16 97 09/01/23 00:31 114/78 09/01/23 00:30 36.9 C 85 16 97 09/01/23 00:15 98/74 L 09/01/23 00:15 36.9 C 93 H 16 97 09/01/23 00:12 88 16 97 24 09/01/23 00:00 36.8 C 78 16 97 09/01/23 00:00 24 09/01/23 00:00 82 89/53 L 09/01/23 00:00 89 08/31/23 23:45 36.8 C 78 16 97 08/31/23 23:45 123/86 08/31/23 23:30 141/86 H 08/31/23 23:30 36.8 C 78 16 97 08/31/23 23:15 139/89 08/31/23 23:15 36.7 C 93 H 17 96 08/31/23 23:00 130/76 08/31/23 23:00 36.7 C 84 16 96 08/31/23 22:45 134/97 08/31/23 22:45 36.7 C 72 16 97 08/31/23 22:30 132/85 08/31/23 22:30 36.6 C 81 16 96 08/31/23 22:15 120/94 08/31/23 22:15 36.6 C 81 16 97 08/31/23 22:00 36.6 C 92 H 16 97 08/31/23 22:00 135/98 08/31/23 21:45 140/101 H 08/31/23 21:45 36.6 C 97 H 21 97 08/31/23 21:30 130/103 H 08/31/23 21:30 36.6 C 76 17 98 08/31/23 21:15 134/93 08/31/23 21:15 36.6 C 67 17 96 08/31/23 21:00 36.6 C 72 16 98 08/31/23 21:00 144/89 H 08/31/23 20:45 131/85 08/31/23 20:45 36.6 C 75 17 97 08/31/23 20:41 86 17 99 24 08/31/23 20:35 36.6 C 77 17 137/72 97 08/31/23 20:30 118/88 08/31/23 20:30 36.6 C 92 H 16 98 08/31/23 20:15 122/98 08/31/23 20:15 36.6 C 79 16 99 08/31/23 20:05 36.6 C 86 16 126/69 99 08/31/23 20:00 36.6 C 93 H 17 98 08/31/23 20:00 136/85 08/31/23 20:00 24 08/31/23 20:00 86 136/74 08/31/23 20:00 Mechanical Vent 08/31/23 19:50 36.6 C 85 16 114/90 97 08/31/23 19:45 36.6 C 85 16 100 08/31/23 19:45 117/71 Laboratory Results 09/01/23 04:24 09/01/23 04:24 Coding Level of Care Code 02307 CRITICAL CARE 1ST 30-74M Diagnoses Septic shock A41.9; R65.21 Respiratory failure J96.00 Chronicity: acute Respiratory failure complication: unspecified whether with hypoxia or hypercapnia Cardiac arrest I46.9 Uncontrolled diabetes mellitus with hyperglycemia E11.65 History of stroke Z86.73 Chronic anticoagulation Z79.01 Sepsis with acute organ dysfunction and septic shock A41.9; R65.21 (2) Respiratory failure Chronicity: acute Respiratory failure complication: unspecified whether with hypoxia or hypercapnia Qualified Code(s): J96.00 - Acute respiratory failure, unspecified whether with hypoxia or hypercapnia
--- NOTE | 2023-09-01 08:25 | Urology Progress Note ---
Date of Service September 01, 2023 Assessment & Plan (1) Left ureteral stone: (2) UTI (urinary tract infection): (3) Bacteremia: (4) Septic shock: Plan: - Pt POD#1 s/p cystoscopy and left ureteral stent placement - Remains in ICU on pressors and intubated at present with plan to extubate today - Afebrile overnight - Lab work reviewed - creatinine 1.21, WBC 20.55, Hbg 8.1 - Kidney aspirate urine culture pending - Alas patent and draining - Left ureteral stent in place for adequate drainage and source control - Recommend continue IV antibiotics per cultures, ID following - Continue supportive care and medical management per medicine teams - Will arrange outpatient follow-up with our service to discuss definitive stone treatment after infection/acute issues have resolved - will sign off, please contact our service with any additional questions or concerns Admission and Anticipated Discharge Date Admission Date: August 23, 2023 Subjective Patient seen at bedside this am No acute issues overnight He is resting in bed He arouses to speech He is not able to provide much history because he is currently intubated Review of Systems Review of Systems: as per HPI Physical Exam Constitutional: + ill appearing Respiratory: intubated Cardiovascular: Rate/Rhythm: regular rate Extremities: + edema Psychiatric: Orientation: oriented to person Genitourinary: alas draining concentrated yellow urine Results & Data Vital Signs (Past 12 Hours) Vital Signs Temp Pulse Resp BP Pulse Ox FiO2 09/01/23 04:30 37.0 C 80 16 96 09/01/23 04:30 121/84 09/01/23 04:19 72 16 97 24 09/01/23 04:15 105/78 09/01/23 04:15 37.0 C 90 16 97 09/01/23 04:00 37.0 C 87 16 96 09/01/23 04:00 100/70 09/01/23 04:00 24 09/01/23 04:00 72 105/59 L 09/01/23 03:45 117/73 09/01/23 03:45 37.0 C 92 H 16 96 09/01/23 03:30 107/69 09/01/23 03:30 36.9 C 80 16 96 09/01/23 03:15 37.0 C 77 16 97 09/01/23 03:15 123/76 09/01/23 03:00 36.9 C 91 H 16 97 09/01/23 02:45 113/80 09/01/23 02:45 36.9 C 81 16 97 09/01/23 02:30 36.9 C 82 16 97 09/01/23 02:16 110/76 09/01/23 02:16 36.9 C 74 16 96 09/01/23 02:00 36.9 C 80 16 97 09/01/23 01:30 37.0 C 71 16 97 09/01/23 01:15 36.9 C 81 16 97 09/01/23 01:15 101/75 09/01/23 01:00 36.9 C 84 16 97 09/01/23 01:00 97/67 L 09/01/23 00:45 36.9 C 83 16 96 09/01/23 00:45 110/75 09/01/23 00:31 36.9 C 91 H 16 97 09/01/23 00:31 114/78 09/01/23 00:30 36.9 C 85 16 97 09/01/23 00:15 98/74 L 09/01/23 00:15 36.9 C 93 H 16 97 09/01/23 00:12 88 16 97 24 09/01/23 00:00 36.8 C 78 16 97 09/01/23 00:00 09/01/23 00:00 82 89/53 L 09/01/23 00:00 89 08/31/23 23:45 36.8 C 78 16 97 08/31/23 23:45 123/86 08/31/23 23:30 141/86 H 08/31/23 23:30 36.8 C 78 16 97 08/31/23 23:15 139/89 08/31/23 23:15 36.7 C 93 H 17 96 08/31/23 23:00 130/76 08/31/23 23:00 36.7 C 84 16 96 08/31/23 22:45 134/97 08/31/23 22:45 36.7 C 72 16 97 08/31/23 22:30 132/85 08/31/23 22:30 36.6 C 81 16 96 08/31/23 22:15 120/94 08/31/23 22:15 36.6 C 81 16 97 08/31/23 22:00 36.6 C 92 H 16 97 08/31/23 22:00 135/98 08/31/23 21:45 140/101 H 08/31/23 21:45 36.6 C 97 H 21 97 08/31/23 21:30 130/103 H 08/31/23 21:30 36.6 C 76 17 98 08/31/23 21:15 134/93 08/31/23 21:15 36.6 C 67 17 96 08/31/23 21:00 36.6 C 72 16 98 08/31/23 21:00 144/89 H 08/31/23 20:45 131/85 08/31/23 20:45 36.6 C 75 17 97 08/31/23 20:41 86 17 99 24 08/31/23 20:35 36.6 C 77 17 137/72 97 08/31/23 20:30 118/88 08/31/23 20:30 36.6 C 92 H 16 98 PG Care Time/CCT Total # of Minutes Spent Total Time Spent with Patient: Total time spent is greater than 50% in coordination of care (as documented) at patient's floor/unit and/or counseling patient: Coding Level of Care Code 91214 SUB INP/OBS CARE Diagnoses Left ureteral stone N20.1 UTI (urinary tract infection) N39.0 Bacteremia R78.81 Septic shock A41.9; R65.21
--- NOTE | 2023-09-01 09:28 | Infectious Disease Progress Nt ---
Date of Service September 01, 2023 Assessment & Plan (1) Acute metabolic encephalopathy: (2) Septic shock: (3) Cardiac arrest: (4) Bacteremia: (5) UTI (urinary tract infection): Plan 57yo M with h/o uncontrolled DM, HTN, HLD, peripheral neuropathy, BPH with LUTS, GERD, gout, stroke with residual left hemiparesis, bicuspid AV s/p mechanical AVR 08/2011 on chronic anticoagulation who presented on 08/22 after [id number] cardiac PEA arrest with ROSC obtained after about 5 to 7 minutes. Intubated in the ED and started on pressors. Found to be febrile up to 40.7. Initial labs with WBC 19.63. Cr 2.70. Elevated AST/ALT, troponin, and lactate. PCT > 100. UA > 50 WBC. UCx with P mirabilis. BCx polymicrobial. CT head negative, CT chest with multifocal pneumonia at the bilateral bases. CTAP with severe bladder wall thickening with Davis present. He was admitted to the ICU and started on broad spectrum abx. TTE limited, normal LV function, AV sclerosis. CXR with left pleural effusion. Thoracentesis deferred due to elevated INR. Extubated 08/24. Noted to have a sacral decubitus ulcer and seen by surgery, bedside debridement was done on 08/25. CXR from 08/24 with bl pleural effusions L>R, left consolidation. ID consulted on 08/27 at which time patient noted to be altered. UA done which had > 50 WBC, UCx P mirabilis. BCx ngtd. CTH negative, CXR without consolidation. MRI with acute infarcts in R frontal and parietal lobes, questionable infarcts in left occipital and cerebellar hemisphere. Repeat TTE negative for vegetations on mitral, tricuspid, or pulmonic valves. Unable to get DEO due to mental status. Course c/b PEA arrest on 08/29 and transferred to ICU, s/p intubation and pressors. CXR with right basilar linear densities favor subsegmental atelectasis. CTAP with moderate- large R sided RP, extraperitoneal, and IM hematomas; obstructing 8mm stone in proximal left ureter causing hydronephrosis. CT chest with RLL densities persist and may be atelectasis and/or PNA, left basilar densities improved. Repeat CTA A/P showed small amount of active bleeding of stable RP hematoma, stable R iliopsoas hematoma. S/p left ureteral stent placement on 08/30. Sacral cx resulted with resistant Pseudomonas. Regarding sacral cultures, from last I saw, I did not think his sacrum was infected and cultures could represent colonization. However, would have wound care re-evaluate the sacral wound and also include image in chart. If there is e/o infection (erythema, purulent drainage, etc), then would change CTX to meropenem. Will avoid use of fluoroquinolone since he has a prolonged QTC. Regrading Aerococcus bacteremia, need to r/o endocarditis in the setting of mechanical AV and multiple cerebral infarcts. Awaiting DEO. Sensitivities for this has returned and is resistant to CTX. He has a PCN allergy unfortunately and cx sensitive to vanc. Daptomycin should be adequate, though I did ask lab to add on dapto sensitivities. He also had CONS on BCX, this is likely contaminant. For Proteus bacteremia/UTI, he is s/p ureteral stent. Will f/u UCx to see if any further adjustments in abx is needed. # Bacteremia 2/2 Aerococcus viridans # Bacteremia and UTI 2/2 P mirabilis in setting of obstructing left ureteral calculus s/p ureteral stent 08/31 # Decubitus ulcer s/p bedside debridement 08/25, cx 08/29 with PsA # Large right RP bleed with extraperitoneal and intramuscular hematomas (including R iliopsoas) # Cardiac arrest (prior to admission and then on 08/29) # Hemorrhagic shock on 08/29 # Multiple infarcts on MRI brain # Aspiration PNA from admission s/p tx # Septic shock on admission resolved # AMRIT - improved # Transaminitis 2/2 shock improved # PCN allergy # QTC 565 - wound care to assess patient today - if any signs of sacral infection, please stop CTX and start meropenem 1g IV q8h (avoid fluoroquinolones) - continue daptomycin 8mg/kg IV daily - continuing CTX for now pending above - DEO when stable - f/u UCx sent from OR on 08/30 ID will continue to follow. If questions or concerns, contact Infectious Disease Call Center . Becki Sheets MD [facility], Division of Infectious Diseases [employer]: [phone] Admission and Anticipated Discharge Date Admission Date: August 23, 2023 Subjective This patient recommendation is based on a telemedicine consult request which was completed asynchronously through chart review and information provided by the primary physician. The patient was not seen or examined today. The evaluation is consultative in nature and all patient care and treatment decisions can either be accepted or rejected by the patient's primary hospital-based treating physician using their own independent medical judgment for their patient. Time Spent Reviewing Chart: 31+ minutes Results & Data Vital Signs (Past 12 Hours) Vital Signs Temp Pulse Resp BP Pulse Ox FiO2 09/01/23 04:30 37.0 C 80 16 96 09/01/23 04:30 121/84 09/01/23 04:19 72 16 97 24 09/01/23 04:15 105/78 09/01/23 04:15 37.0 C 90 16 97 09/01/23 04:00 37.0 C 87 16 96 09/01/23 04:00 100/70 09/01/23 04:00 24 09/01/23 04:00 72 105/59 L 09/01/23 03:45 117/73 09/01/23 03:45 37.0 C 92 H 16 96 09/01/23 03:30 107/69 09/01/23 03:30 36.9 C 80 16 96 09/01/23 03:15 37.0 C 77 16 97 09/01/23 03:15 123/76 09/01/23 03:00 36.9 C 91 H 16 97 09/01/23 02:45 113/80 09/01/23 02:45 36.9 C 81 16 97 09/01/23 02:30 36.9 C 82 16 97 09/01/23 02:16 110/76 09/01/23 02:16 36.9 C 74 16 96 09/01/23 02:00 36.9 C 80 16 97 09/01/23 01:30 37.0 C 71 16 97 09/01/23 01:15 36.9 C 81 16 97 09/01/23 01:15 101/75 09/01/23 01:00 36.9 C 84 16 97 09/01/23 01:00 97/67 L 09/01/23 00:45 36.9 C 83 16 96 09/01/23 00:45 110/75 09/01/23 00:31 36.9 C 91 H 16 97 09/01/23 00:31 114/78 09/01/23 00:30 36.9 C 85 16 97 09/01/23 00:15 98/74 L 09/01/23 00:15 36.9 C 93 H 16 97 09/01/23 00:12 88 16 97 24 09/01/23 00:00 36.8 C 78 16 97 09/01/23 00:00 24 09/01/23 00:00 82 89/53 L 09/01/23 00:00 89 08/31/23 23:45 36.8 C 78 16 97 08/31/23 23:45 123/86 08/31/23 23:30 141/86 H 08/31/23 23:30 36.8 C 78 16 97 08/31/23 23:15 139/89 08/31/23 23:15 36.7 C 93 H 17 96 08/31/23 23:00 130/76 08/31/23 23:00 36.7 C 84 16 96 08/31/23 22:45 134/97 08/31/23 22:45 36.7 C 72 16 97 08/31/23 22:30 132/85 08/31/23 22:30 36.6 C 81 16 96 08/31/23 22:15 120/94 08/31/23 22:15 36.6 C 81 16 97 08/31/23 22:00 36.6 C 92 H 16 97 08/31/23 22:00 135/98 08/31/23 21:45 140/101 H 08/31/23 21:45 36.6 C 97 H 21 97 08/31/23 21:30 130/103 H 08/31/23 21:30 36.6 C 76 17 98 Laboratory Results 08/22 MRSA screen neg 08/22 BCX: P mirabilis in 2/4 bottles (R-FQ, I-cefazolin, S-amp), CONS (not lugdunensis) in 1/4 bottles, Aerococcus viridans (R-CTX, S-PCN, vanc) in 2/4 bottles 08/22 UCX: P mirabilis (R-cefazolin) 08/25 BCX: ngtd 08/27 BCX: ngtd 08/27 UCX: proteus mirabilis (S-CTX) 08/29 Sacral WCX: P aeruginosa (R-cefepime, I-zosyn, S-meropenem), C albicans/dubliniensis 08/29 BCX: ngtd 08/29 SCX: light normal oral melva 08/30 UCX from OR: pending
[2023-09-01] MEDS: POTASSIUM CHLORIDE / WTR 20 MEQ/100 ML PLCT IV ONE (09:34)
[2023-09-01] MEDS: MAGNESIUM SULFATE / D5W 1 GM/100 ML BAG IV SCH (09:35)
[2023-09-01] MEDS: POTASSIUM CHLORIDE / WTR 10 MEQ/100 ML PLCT IV ONE (11:16)
[2023-09-01 12:08] LABS: Hematocrit (blood only) 23.1 % (42.0-52.0); Hemoglobin 7.9 g/dl (14.0-18.0)
[2023-09-01] MEDS ORDERED: VANCOMYCIN CONSULT ACTIVE PRN (12:21)
--- NOTE | 2023-09-01 12:31 | Pharmacy Report ---
Pharmacy PK ABX Note - Date of Service September 01, 2023 - Assessment and Plan Assessment 57 year old M receiving vancomycin and cefepime for treatment of bacteremia, UTI and pulmonary sources. Patient is post cardiac arrest. Pertinent microbiologic data includes:urine culture growing proteus mirabilis and blood cx growing proteus mirabilis and aerococcus viridans. CT abd/pelvis showing left obstructing uretal stone. Scr increased somewhat since yesterday. Will monitor the transiency of this in the setting of acute clinical change. Based on the rise in scr and random level this morning will decrease maintenance dose. Day # 1 of antimicrobial therapy. 08/31: * vancomycin was d/c'd yesterday afternoon and daptomycin resumed. Today, ID wished to switch back to vancomycin as we have susceptibilities for the aerococcus for vancomycin but are unable to obtain this for dapto. * Patient's scr did increase again today and urine output remains low. Will proceed with caution dosing and get another level tomorrow. * Last dose of vancomycin was 08/30 ~ 0500 and last dose of dapto was 08/30 @ 1700. Given this and renal function concerns, will not re-load and start with maintenance dosing. Plan Vancomycin * Maintenance dose: 1000 mg IV every 12 hours * Regimen is predicted to achieve target AUC/JANICE of 400-600 mg/L.hr * Random level ordered 09/01 @ 1100 Pharmacy will continue to follow and will adjust dose/frequency as necessary. Thank you. Pharmacy has transitioned to AUC monitoring for vancomycin. AUC/JANICE is the preferred PK/PD target and is associated with decreased risk of nephrotoxicity compared to traditional trough targets.
--- NOTE | 2023-09-01 13:00 | Hospitalist Progress Note ---
Date of Service September 01, 2023 Assessment & Plan (1) Cardiac arrest: Plan: First cardiac arrest was outside of the hospital. This was secondary to septic shock. Extubated on 08/24, off of pressors. Patient recovered from it and was transferred out of the ICU. Still on treatment for septicemia. Second cardiac arrest was on 08/29, secondary to hemorrhagic shock from retroperitoneal and intramuscular bleed. Anticoagulation has been held (2) Acute metabolic encephalopathy: Plan: Started around 08/25 as per patient's but worsened overnight on 08/26 and 08/27 with increased weakness, decreased responsiveness, mostly nonverbal Lactate elevated but otherwise procalcitonin trending downward, renal failure is resolved, some hypokalemia but not severe, sepsis is improving, afebrile Initially thought could be withdrawal from not receiving home Lyrica, gabapentin, or oxycodone CT head negative, but ordered MRI brain which showed multiple acute strokes- likely culprit Treating strokes Continue antibiotic therapy for bacteremia (3) Bacteremia: Plan: With septicemia and septic shock-febrile, with leukocytosis, septic shock and PEA arrest on arrival Aerococcus viridans and Proteus isolated in blood cultures. There is also coagulase-negative Staphylococcus which is likely a contaminant. His urine culture also grew Proteus initially and again on 08/27 Aerococcus is also most commonly a organism as per ID. Urine is most likely source but there is also a sacral wound. Sacral wound growing Pseudomonas and Cate Appreciate ID consultation DEO is indicated given multiple embolic appearing strokes-could be septic emboli. DEO was being planned 08/29. However the patient went into cardiac arrest and the procedure was postponed. Currently the patient is on ceftriaxone, vancomycin per ID recommendations Repeat blood cultures on 08/25 and 08/27 remain no growth to date Repeat urine culture on 08/27 with Proteus despite ceftriaxone Urology did cystoscopy and left ureteral stent placement 08/30 Continue ceftriaxone for Proteus. Continue vancomycin for coverage for the Aerococcus Follow CBC, CMP, CK (4) Acute CVA (cerebrovascular accident): Plan: Brain MRI ordered on 08/27 due to ongoing expressive aphasia and metabolic encephalopathy, found multiple acute strokes-2 subcentimeter in right frontal and parietal lobes, 2 additional questionable punctate acute infarcts in left occipital and left cerebellar hemisphere He was only off of anticoagulation for 1-2 days at the most during this hospitalization after his heparin drip was discontinued for sacral wound bleeding-heparin drip was resumed but due to compatibility issues and poor IV access, was switched to Lovenox SQ 1 mg/kg twice daily. Seems less likely to be cardioembolic from clot, however could be septic emboli from endocarditis Could be from CPR/resuscitation and aortic arch plaque rupture? Dysphagia improved and right-sided weakness was improving. He had a video swallow on 08/28-able to advance diet to mildly thickened liquids and pured food Holding statin due to daptomycin therapy and also patient not able to take p.o. safely Speech therapy consulted again after the second cardiac arrest He has an allergy to IV contrast dye of hives but reports he has been able to tolerate it with Benadryl in the past-defer CTA head/neck/chest for now Carotid Dopplers negative Continue neuro checks and stroke scale every shift Lipid panel with very low cholesterol, hemoglobin A1c severely elevated at 11.0%-he is not on any diabetes medications-diabetes control addressed Neurology consult placed-thinks strokes due to sepsis, thinks that aspirin is not necessary but patient was on aspirin prior to admission for his previous cardiac issues so was continued. Currently held due to retroperitoneal bleed and hemorrhagic shock. Plan for DEO is being held for the time being due to patient's critical condition. (5) Atrial fibrillation: Plan: Developed August 25 p.m. and is new onset for patient Heparin drip was started but subsequently discontinued due to bleeding from the freshly debrided sacral decubitus. Was switched to therapeutic Lovenox He was treated for Coumadin toxicity with parenteral vitamin K on August 25, and INR was subtherapeutic Coumadin 7.5 mg was administered x 1 on 08/26 but then held due to NPO status--> resumed 08/29 as now able to take po Was started on Lovenox SQ 100 Mg every 12 hours for bridging Currently all anticoagulation being held due to retroperitoneal bleed and hemorrhagic shock Hold carvedilol Monitor on telemetry (6) Respiratory failure: Plan: Acute hypoxic respiratory failure. He was extubated on the morning of August 24. Resolved. Reintubated as part of code on 08/29. Now extubated today 08/31. (7) Aspiration pneumonia of both lower lobes: Plan: Suspected aspiration pneumonia in both lower lobes on admission but repeat chest x-ray is now clear. No need for antibiotic coverage for pneumonia at this point speech therapy following as he did aspirate at the bedside of thin liquids with water on 08/27 in the setting of newly diagnosed acute strokes Now with video swallow and he is aspirating thin liquids but is able to tolerate mildly thickened liquids and pured foods Speech consulted again after second cardiac arrest (8) Decubitus ulcer: Plan: Debrided on August 25. Some minor bleeding occurred with heparin drip on August 25 and heparin drip was placed on hold and then was put back on anticoagulation. Currently in hemorrhagic shock due to retroperitoneal bleed. All anticoagulation on hold Continue local care. Appreciate general surgery consultation and recommendations-appreciate bedside debridement Appears blackened in color on 08/29 but Surgeon used silver nitrate to treat the bleeding Wound cx growing Pseudomonas and Cate. Likely to be contaminants Wound care consulted (9) Chronic anticoagulation: Plan: With Coumadin. He has a mechanical valve and target INR is 2.5-3.5 INR was subtherapeutic at 2 on 08/29 and thus the patient was started on Lovenox bridge. He then had a retroperitoneal hematoma leading to hemorrhagic shock and cardiac arrest. Currently all anticoagulation on hold Will need to start him back on heparin drip soon because of his mechanical valves. (10) Uncontrolled diabetes mellitus with hyperglycemia: Plan: Type 2 diabetes. His hemoglobin A1c is severely elevated at 11.0% Patient's reports that he was started on Lantus 60 units at bedtime but she only gave it to him once and he became significantly hypoglycemic and delirious and she has been fearful to give it ever since. 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 status and on daptomycin but would resume at high intensity dose due to strokes (18) Peripheral neuropathy: Plan: With chronic pain, takes pregabalin, gabapentin, and oxycodone as needed Resumed Lyrica 150 Mg p.o. twice daily Would not combine gabapentin with Lyrica-will continue to hold gabapentin Can take oxycodone as needed but this does make him drowsy Plan Spoke to on the phone to update her. Admission and Anticipated Discharge Date Admission Date: August 23, 2023 Subjective Patient was extubated today! Off of pressors. Review of Systems Review of Systems: All systems reviewed & are unremarkable except as noted in Subjective Physical Exam Physical Exam: General: Awake. Able to converse but slow to respond Heart: S1, S2/regular rate and rhythm, no murmur rubs or gallops Lungs: Clear to auscultation bilaterally. Normal effort Abdomen: Soft/nontender/nondistended. No hepatosplenomegaly Extremities: No clubbing/cyanosis. No edema Behavior: Appropriate, cooperative Results & Data Results & Data Vital Signs (Past 12 Hours) Vital Signs Temp Pulse Resp BP Pulse Ox O2 Del Method FiO2 09/01/23 11:48 Room Air 09/01/23 08:00 89 09/01/23 07:55 87 17 97 24 09/01/23 04:30 37.0 C 80 16 96 09/01/23 04:30 121/84 09/01/23 04:19 72 16 97 24 09/01/23 04:15 105/78 09/01/23 04:15 37.0 C 90 16 97 09/01/23 04:00 37.0 C 87 16 96 09/01/23 04:00 100/70 09/01/23 04:00 24 09/01/23 04:00 72 105/59 L 09/01/23 03:45 117/73 09/01/23 03:45 37.0 C 92 H 16 96 09/01/23 03:30 107/69 09/01/23 03:30 36.9 C 80 16 96 09/01/23 03:15 37.0 C 77 16 97 09/01/23 03:15 123/76 09/01/23 03:00 36.9 C 91 H 16 97 09/01/23 02:45 113/80 09/01/23 02:45 36.9 C 81 16 97 09/01/23 02:30 36.9 C 82 16 97 09/01/23 02:16 110/76 09/01/23 02:16 36.9 C 74 16 96 09/01/23 02:00 36.9 C 80 16 97 09/01/23 01:30 37.0 C 71 16 97 09/01/23 01:15 36.9 C 81 16 97 09/01/23 01:15 101/75 09/01/23 01:00 36.9 C 84 16 97 09/01/23 01:00 97/67 L Laboratory Results Abnormal lab results 08/30/23 08/31/23 08/31/23 Range/Units 17:54 14:30 20:14 WBC (4.8-10.8) K/ul RBC (4.70-6.10) M/uL Hgb 7.2 L (14.0-18.0) g/dl Hct 21.4 L (42.0-52.0) % MCV (80.0-100.0) fL RDW Std Deviation (36.4-46.3) fL RDW Coeff of Malika (11.5-14.5) % Neut # (Auto) (1.40-6.50) K/uL Treasure # (Auto) (0.11-0.59) K/uL Immature Gran # (Auto) (0.01-0.20) K/uL PT (9.0-12.0) Seconds INR (0.9-1.1) BUN (6-23) mg/dl BUN/Creatinine Ratio (10-20) Glucose (70-99(Fasting)) mg/dl POC Glucose 203 H (70-99) mg/dl POC Glucose (other) (70-99) mg/dl Calcium (8.6-10.3) mg/dl Crossmatch See Detail 08/31/23 08/31/23 09/01/23 Range/Units 22:51 23:58 04:24 WBC 20.55 H (4.8-10.8) K/ul RBC 3.01 L (4.70-6.10) M/uL Hgb 8.8 L 8.1 L (14.0-18.0) g/dl Hct 26.1 L 23.5 L (42.0-52.0) % MCV 78.1 L (80.0-100.0) fL RDW Std Deviation 48.3 H (36.4-46.3) fL RDW Coeff of Malika 17.1 H (11.5-14.5) % Neut # (Auto) 15.47 H (1.40-6.50) K/uL Treasure # (Auto) 1.85 H (0.11-0.59) K/uL Immature Gran # (Auto) 0.66 H (0.01-0.20) K/uL PT 14.7 H (9.0-12.0) Seconds INR 1.4 H (0.9-1.1) BUN 40 H (6-23) mg/dl BUN/Creatinine Ratio 33.1 H (10-20) Glucose 188 H (70-99(Fasting)) mg/dl POC Glucose 176 H (70-99) mg/dl POC Glucose (other) (70-99) mg/dl Calcium 7.0 L (8.6-10.3) mg/dl Crossmatch 09/01/23 09/01/23 09/01/23 Range/Units 06:17 08:42 10:56 WBC (4.8-10.8) K/ul RBC (4.70-6.10) M/uL Hgb (14.0-18.0) g/dl Hct (42.0-52.0) % MCV (80.0-100.0) fL RDW Std Deviation (36.4-46.3) fL RDW Coeff of Malika (11.5-14.5) % Neut # (Auto) (1.40-6.50) K/uL Treasure # (Auto) (0.11-0.59) K/uL Immature Gran # (Auto) (0.01-0.20) K/uL PT (9.0-12.0) Seconds INR (0.9-1.1) BUN (6-23) mg/dl BUN/Creatinine Ratio (10-20) Glucose (70-99(Fasting)) mg/dl POC Glucose 173 H 162 H (70-99) mg/dl POC Glucose (other) 158 H (70-99) mg/dl Calcium (8.6-10.3) mg/dl Crossmatch 09/01/23 09/01/23 Range/Units 11:54 11:58 WBC (4.8-10.8) K/ul RBC (4.70-6.10) M/uL Hgb 7.9 L (14.0-18.0) g/dl Hct 23.1 L (42.0-52.0) % MCV (80.0-100.0) fL RDW Std Deviation (36.4-46.3) fL RDW Coeff of Malika (11.5-14.5) % Neut # (Auto) (1.40-6.50) K/uL Treasure # (Auto) (0.11-0.59) K/uL Immature Gran # (Auto) (0.01-0.20) K/uL PT (9.0-12.0) Seconds INR (0.9-1.1) BUN (6-23) mg/dl BUN/Creatinine Ratio (10-20) Glucose (70-99(Fasting)) mg/dl POC Glucose 150 H (70-99) mg/dl POC Glucose (other) (70-99) mg/dl Calcium (8.6-10.3) mg/dl Crossmatch PG Care Time/CCT Total # of Minutes Spent Total Time Spent with Patient: Total time spent is greater than 50% in coordination of care (as documented) at patient's floor/unit and/or counseling patient: Coding Level of Care Code 38101 SUB INP/OBS CARE 2/35MIN Diagnoses Cardiac arrest I46.9 Acute metabolic encephalopathy G93.41 Bacteremia R78.81 Acute CVA (cerebrovascular accident) I63.9 Atrial fibrillation I48.91 Respiratory failure J96.00 Chronicity: acute Respiratory failure complication: unspecified whether with hypoxia or hypercapnia Aspiration pneumonia of both lower lobes J69.0 Decubitus ulcer L89.90 Chronic anticoagulation Z79.01 Uncontrolled diabetes mellitus with hyperglycemia E11.65 History of stroke Z86.73 Hypertension I10 Gout M10.9 BPH w urinary obs/LUTS N40.1; N13.8 Hypokalemia E87.6 History of aortic valve replacement with metallic valve Z95.4 Hyperlipidemia E78.5 Peripheral neuropathy G62.9 (6) Respiratory failure Chronicity: acute Respiratory failure complication: unspecified whether with hypoxia or hypercapnia Qualified Code(s): J96.00 - Acute respiratory failure, unspecified whether with hypoxia or hypercapnia
[2023-09-01] MEDS: VANCOMYCIN HCL 1,000 MG in SODIUM CHLORIDE 0.9% 250 ML IV SCH (13:27)
[2023-09-01] MEDS ORDERED: Nursing to Pharmacy Communication SCH (16:45)
[2023-09-01] MEDS: INSULIN ASPART PER UNIT CHARGE SC SCH (17:55)
[2023-09-01] MEDS ORDERED: ACETAMINOPHEN 1,000 MG/100 ML VIAL IV PRN (18:09)
[2023-09-01] MEDS: HYDROmorphone INJ 1 MG/ML SYRINGE IV PRN (18:17)
[2023-09-01 18:46] LABS: Hematocrit (blood only) 22.7 % (42.0-52.0); Hemoglobin 7.5 g/dl (14.0-18.0)
[2023-09-01] MEDS: ALBUTEROL 0.083% NEBU SOLN 3 ML VIAL NEB PRN (18:58)
[2023-09-02 05:11] LABS: Basophils # (auto) 0.02 K/uL (0.00-0.20); Basophils % (auto) 0.1 %; Hematocrit (blood only) 21.5 % (42.0-52.0); Immature Granulocytes # (auto) 0.71 K/uL (0.01-0.20); Immature Granulocytes % (auto) 3.9 %; Lymphocytes % (auto) 9.8 %; Mean Corpuscular Hemoglobin 26.6 pg (25.0-34.0); Mean Corpuscular Hgb Conc 32.6 g/dL (32.0-36.0); Mean Corpuscular Volume 81.7 fL (80.0-100.0); Mean Platelet Volume 10.7 fL (9.4-12.4); Monocytes # (auto) 1.39 K/uL (0.11-0.59); Monocytes % (auto) 7.5 %; Neutrophils # (auto) 14.51 K/uL (1.40-6.50); Neutrophils % (auto) 78.7 %; Nucleated RBC # (auto) 0.08 K/uL (0.00-0.12); Nucleated RBC % (auto) 0.4 %; Platelet Count 193 K/uL (130-400); RDW Standard Deviation 51.8 fL (36.4-46.3); Red Blood Count 2.63 M/uL (4.70-6.10); White Blood Count 18.43 K/ul (4.8-10.8)
[2023-09-02 05:29] LABS: BUN Creatinine Ratio 33.3 (10-20); Creatinine Clr Calc Pharmacy 98.1 ml/min; Est GFR (African American) 90.3 ml/min; Est GFR (Non-African American) 77.9 ml/min; Potassium 3.4 mmol/L (3.5-5.1)
[2023-09-02 05:38] LABS: INR 1.2 (0.9-1.1)
[2023-09-02] MEDS ORDERED: SODIUM CHLORIDE 0.9% 250 ML IV PRN (05:51)
[2023-09-02] MEDS: FUROSEMIDE INJ 20 MG/2 ML VIAL IV ONE ×2 (06:14→18:52)
[2023-09-02] MEDS: POTASSIUM CHLORIDE / WTR 20 MEQ/100 ML PLCT IV SCH (06:15)
[2023-09-02 06:48] LABS: RBC Morphology Unremarkable
--- NOTE | 2023-09-02 07:59 | Critical Care Progress Note ---
Date of Service September 02, 2023 Assessment & Plan (1) Septic shock: (2) Respiratory failure: (3) Cardiac arrest: (4) Uncontrolled diabetes mellitus with hyperglycemia: (5) History of stroke: (6) Chronic anticoagulation: (7) Sepsis with acute organ dysfunction and septic shock: Plan Impression:: 57-year-old male with severe sepsis with septic shock secondary to Proteus UTI/bacteremia with prior history of stroke admitted with out of hospital cardiac arrest- PEA on arrival. Patient was initially in the ICU and then downgraded. He had another hypotensive and PEA arrest on 08/30/2023. Sent to ICU for further management Recommendations Neuro - -- Encephalopathy secondary to acute CVA --> improving Likely embolic stroke, appreciated on MRI 08/30/23 MRI of the brain 08/28/2023: 2 subcentimeter acute infarcts in the right frontal and parietal lobe. Old infarcts in the right thalamus in the cerebral hemisphere. Atrophy and microvascular ischemic changes -- History of CVA in the past with left hemiparesis Cardiac - -- S/p PEA with hemorrhagic shock Etiology seems to be hemorrhagic shock EKG 08/30/2023 1534: A-fib, right bundle branch block, left axis deviation, no ST-T wave changes appreciated -- History of mechanical heart valve On warfarin at home Anticoagulation on hold --A-fib On warfarin at home Respiratory - -- S/p VDRF for airway protection secondary to cardiac arrest Extubated 09/01/2023 -- Multiple rib fractures Likely from chest compressions from the initial admission GI - -- Aspiration Patient failed swallow eval 08/29/2023, repeat swallow eval 09/01/2023 was fine RENAL/LYTES -- Monitor BUNs/creatinine Avoid nephrotoxic medications --History of gout On allopurinol --Left-sided ureter stone with hydronephrosis S/p cystoscopy and stent placement 08/31/2023 ENDO - -- Diabetes type 2 ICU hypoglycemia protocol HEME - -- Acute blood loss anemia from retroperitoneal bleed S/p 2 units PRBC, protamine and FFP on 08/30/2023, another 2 units PRBC given 08/31/2023, getting another 2 units of PRBC 09/02/2023 Vitamin K 2.5 mg given on 08/31/2019 Monitor H&H Not a candidate for intervention right now after discussion with IR at [facility] Continue to hold anticoagulation for another 24 hours and then resume heparin drip given the patient has mechanical heart well ID - -- Proteus mirabilis and Aerococcus viridans Has been on daptomycin as well as Rocephin Will change Rocephin to cefepime and add Flagyl because of aspiration --Decubitus ulcer with Pseudomonas aeruginosa S/p debridement on the previous ICU visit Wound culture growing Pseudomonas which is resistant to cefepime and intermediate to Zosyn, after talking with the wound care and ID it seems that it is most likely a colonizer --Prophylaxis VTE: Lovenox GI: Pantoprazole Lines: Left femoral TLC, left femoral radial, Davis changed 08/30/2023 Diet: Tube feeds Plan: In/out: +1.3 L, urine output 850 mL Hypokalemia being replaced. Will try to get ultrasound-guided line so that we can take the central line as well as the radial line out Repeat H&H later today. If the hemoglobin is still trending down then I will order a CTA abdominal pelvis to see if there is still significant bleeding. Not a candidate for intervention right now after discussion with IR at [facility] on 08/30/2023 Please note the above document was generated using voice recognition software. It may contain grammatical, syntax or spelling errors.Any formal questions or concerns about the content, text or information contained within the body of this dictation should be directly addressed to the provider for clarification. Admission and Anticipated Discharge Date Admission Date: August 23, 2023 Subjective Patient seen and examined at bedside. No acute distress, no adverse events overnight He was saturating 95% on 4 L nasal cannula, I went down to 2 L He was awake alert oriented and answering questions appropriately Denied any headache, no chest pain, no shortness of breath. Does complain of mild pain in the right lower quadrant. Review of Systems 2 Review of Systems: All systems reviewed & are unremarkable except as noted in Subjective Physical Exam 2 Physical Exam: Constitutional: No acute distress HEENT: PERRLA Respiratory system: Decreased air entry bilaterally, no wheeze, no rhonchi, positive crackles bilaterally CVS: S1-S2 positive, mechanical heart sound Abdomen: Soft, right lower quadrant tenderness, no rebound, nondistended, positive bowel sounds x4 Extremities: + 2 pulses bilaterally radialis/ dorsalis pedis, no cyanosis, +1 pitting edema bilateral lower extremity, +1 pitting edema left upper extremity Neuro: Awake alert oriented to self and place, moving right upper and right lower extremity on command Psych: Normal mood and affect G/U: Positive Davis Skin: no rashes, warm and dry Lymphatic: no cervical or axillary lymphadenopathy Results & Data Results & Data Vital Signs (Past 12 Hours) Vital Signs Temp Pulse Resp BP Pulse Ox O2 Del Method O2 Flow Rate 09/02/23 07:28 36.2 C L 100 H 20 124/77 98 4 09/02/23 07:13 36.2 C L 87 24 121/84 97 4 09/02/23 06:56 36.2 C L 88 18 135/65 99 09/02/23 06:30 36.2 C L 78 23 96 09/02/23 06:30 136/95 09/02/23 06:15 131/88 09/02/23 06:15 36.3 C L 87 20 99 09/02/23 06:00 36.3 C L 81 22 96 09/02/23 06:00 142/78 H 09/02/23 05:30 134/81 09/02/23 05:30 36.3 C L 67 19 98 09/02/23 05:15 129/77 09/02/23 05:15 36.3 C L 81 21 97 09/02/23 05:00 127/79 09/02/23 05:00 36.3 C L 74 19 96 09/02/23 04:45 123/84 09/02/23 04:45 36.3 C L 102 H 22 99 09/02/23 04:30 36.3 C L 77 20 96 09/02/23 04:15 138/84 09/02/23 04:15 36.3 C L 77 18 98 09/02/23 04:00 36.3 C L 77 22 98 09/02/23 04:00 120/72 09/02/23 04:00 79 133/69 09/02/23 03:45 36.3 C L 87 23 97 09/02/23 03:45 126/84 09/02/23 03:30 36.3 C L 76 19 98 09/02/23 03:30 133/82 09/02/23 03:15 36.3 C L 82 21 98 09/02/23 03:15 137/74 09/02/23 03:00 36.3 C L 63 20 98 09/02/23 03:00 134/76 09/02/23 02:45 36.3 C L 71 20 97 09/02/23 02:45 129/80 09/02/23 02:39 79 18 98 2 09/02/23 02:30 36.3 C L 78 25 H 96 09/02/23 02:30 140/84 09/02/23 02:15 36.3 C L 74 23 97 09/02/23 02:15 127/75 09/02/23 02:00 36.3 C L 96 H 24 99 09/02/23 01:45 36.4 C L 85 25 H 98 09/02/23 01:45 121/73 09/02/23 01:30 126/77 09/02/23 01:30 36.4 C L 77 22 99 09/02/23 01:15 36.4 C L 78 20 100 09/02/23 01:15 134/76 09/02/23 01:00 120/72 09/02/23 01:00 36.4 C L 81 24 91 09/02/23 00:45 131/67 09/02/23 00:45 36.5 C 75 22 97 09/02/23 00:30 36.5 C 74 19 95 09/02/23 00:30 115/69 09/02/23 00:15 36.6 C 76 21 97 09/02/23 00:15 121/68 09/02/23 00:00 36.6 C 81 21 98 09/02/23 00:00 125/79 09/02/23 00:00 67 131/60 09/02/23 00:00 73 09/01/23 23:45 36.6 C 76 21 98 09/01/23 23:45 118/76 09/01/23 23:30 36.7 C 88 20 98 09/01/23 23:30 114/78 09/01/23 23:15 36.7 C 89 22 95 09/01/23 23:15 105/63 09/01/23 23:00 36.6 C 88 22 97 09/01/23 23:00 105/62 09/01/23 22:45 109/79 09/01/23 22:45 36.6 C 83 22 100 09/01/23 22:45 90 22 99 2 09/01/23 22:30 36.7 C 88 21 99 09/01/23 22:30 119/76 09/01/23 22:15 36.7 C 79 21 98 09/01/23 22:15 118/72 09/01/23 22:00 120/71 09/01/23 22:00 36.8 C 86 22 100 09/01/23 21:45 100/70 09/01/23 21:45 36.8 C 90 18 100 09/01/23 21:30 36.8 C 93 H 22 99 09/01/23 21:30 116/69 09/01/23 21:15 108/79 09/01/23 21:15 36.8 C 83 37 H 93 09/01/23 21:00 36.8 C 86 23 91 09/01/23 21:00 115/68 09/01/23 20:45 36.8 C 93 H 26 H 93 09/01/23 20:45 112/87 09/01/23 20:30 36.8 C 86 29 H 91 09/01/23 20:30 111/74 09/01/23 20:15 122/84 09/01/23 20:15 36.8 C 93 H 22 93 09/01/23 20:00 36.8 C 89 31 H 98 09/01/23 20:00 119/69 09/01/23 20:00 83 125/61 09/01/23 20:00 Nasal Cannula 4 Laboratory Results 09/02/23 04:37 09/02/23 04:37 Coding Level of Care Code 69625 SUB INP/OBS CARE 3/50MIN Diagnoses Septic shock A41.9; R65.21 Respiratory failure J96.00 Chronicity: acute Respiratory failure complication: unspecified whether with hypoxia or hypercapnia Cardiac arrest I46.9 Uncontrolled diabetes mellitus with hyperglycemia E11.65 History of stroke Z86.73 Chronic anticoagulation Z79.01 Sepsis with acute organ dysfunction and septic shock A41.9; R65.21 (2) Respiratory failure Chronicity: acute Respiratory failure complication: unspecified whether with hypoxia or hypercapnia Qualified Code(s): J96.00 - Acute respiratory failure, unspecified whether with hypoxia or hypercapnia
[2023-09-02] MEDS: PANTOprazole 40 MG TAB PO SCH (10:10)
--- NOTE | 2023-09-02 11:49 | Hospitalist Progress Note ---
Date of Service September 02, 2023 Assessment & Plan (1) Cardiac arrest: Plan: First cardiac arrest was outside of the hospital. This was secondary to septic shock. Extubated on 08/24, off of pressors. Patient recovered from it and was transferred out of the ICU. Still on treatment for septicemia. Second cardiac arrest was on 08/29, secondary to hemorrhagic shock from retroperitoneal and intramuscular bleed. Anticoagulation has been held Patient received 2 units PRBC, protamine and FFP on 08/29, 2 more units PRBC on 08/30. Today he is getting another 2 units of PRBC 09/01 as a hemoglobin is low at 7 today Plan is to monitor H&H. If further drop, CT abdomen/pelvis will be repeated (2) Acute metabolic encephalopathy: Plan: Started around 08/25 as per patient's but worsened overnight on 08/26 and 08/27 with increased weakness, decreased responsiveness, mostly nonverbal Lactate elevated but otherwise procalcitonin trending downward, renal failure is resolved, some hypokalemia but not severe, sepsis is improving, afebrile Initially thought could be withdrawal from not receiving home Lyrica, gabapentin, or oxycodone CT head negative, but MRI brain on 08/27 showed multiple acute strokes-likely culprit Treating strokes Continue antibiotic therapy for bacteremia (3) Bacteremia: Plan: With septicemia and septic shock-febrile, with leukocytosis, septic shock and PEA arrest on arrival Aerococcus viridans and Proteus isolated in blood cultures. There is also coagulase-negative Staphylococcus which is likely a contaminant. His urine culture also grew Proteus initially and again on 08/27 Aerococcus is also most commonly a organism as per ID. Urine is most likely source but there is also a sacral wound. Sacral wound growing Pseudomonas and Cate, likely colonization Appreciate ID consultation DEO is indicated given multiple embolic appearing strokes-could be septic emboli. DEO was being planned 08/29. However the patient went into cardiac arrest and the procedure was postponed. Currently the patient is on ceftriaxone, vancomycin per ID recommendations Repeat blood cultures on 08/25, 08/27 and 08/29 remain no growth to date Repeat urine culture on 08/27 with Proteus despite ceftriaxone Urology did cystoscopy and left ureteral stent placement 08/30 Continue ceftriaxone for Proteus. Continue vancomycin for coverage for the Aerococcus Follow CBC, CMP, CK (4) Acute CVA (cerebrovascular accident): Plan: Brain MRI ordered on 08/27 due to ongoing expressive aphasia and metabolic encephalopathy, found multiple acute strokes-2 subcentimeter in right frontal and parietal lobes, 2 additional questionable punctate acute infarcts in left occipital and left cerebellar hemisphere He was only off of anticoagulation for 1-2 days at the most during this hospitalization after his heparin drip was discontinued for sacral wound ble eding-heparin drip was resumed but due to compatibility issues and poor IV access, was switched to Lovenox SQ 1 mg/kg twice daily. Seems less likely to be cardioembolic from clot, however could be septic emboli from endocarditis Could be from CPR/resuscitation and aortic arch plaque rupture? Dysphagia improved and right-sided weakness was improving. He had a video swallow on 08/28-able to advance diet to mildly thickened liquids and pured food Holding statin due to daptomycin therapy and also patient not able to take p.o. safely Speech therapy consulted again after the second cardiac arrest He has an allergy to IV contrast dye of hives but reports he has been able to tolerate it with Benadryl in the past-defer CTA head/neck/chest for now Carotid Dopplers negative Continue neuro checks and stroke scale every shift Lipid panel with very low cholesterol, hemoglobin A1c severely elevated at 11.0%-he is not on any diabetes medications-diabetes control addressed Neurology consult placed-thinks strokes due to sepsis, thinks that aspirin is not necessary but patient was on aspirin prior to admission for his previous cardiac issues so was continued. Currently held due to retroperitoneal bleed and hemorrhagic shock. Plan for DEO is being held for the time being due to patient's critical condition. (5) Atrial fibrillation: Plan: Developed August 25 p.m. and is new onset for patient Heparin drip was started but subsequently discontinued due to bleeding from the freshly debrided sacral decubitus. Was switched to therapeutic Lovenox He was treated for Coumadin toxicity with parenteral vitamin K on August 25, and INR was subtherapeutic Coumadin 7.5 mg was administered x 1 on 08/26 but then held due to NPO status--> resumed 08/29 as now able to take po Was started on Lovenox SQ 100 Mg every 12 hours for bridging On 08/29, had hemorrhagic shock leading to PEA arrest Currently all anticoagulation being held due to retroperitoneal bleed and hemorrhagic shock Hold carvedilol Monitor on telemetry (6) Respiratory failure: Plan: Acute hypoxic respiratory failure. He was extubated on the morning of August 24. Resolved. Reintubated as part of code on 08/29. Now extubated today 08/31. (7) Aspiration pneumonia of both lower lobes: Plan: Suspected aspiration pneumonia in both lower lobes on admission but repeat chest x-ray is now clear. No need for antibiotic coverage for pneumonia at this point speech therapy following as he did aspirate at the bedside of thin liquids with water on 08/27 in the setting of newly diagnosed acute strokes Now with video swallow and he is aspirating thin liquids but is able to tolerate mildly thickened liquids and pured foods Passed speech evaluation on 08/31. Started on a diet (8) Decubitus ulcer: Plan: Debrided on August 25. Some minor bleeding occurred with heparin drip on August 25 and heparin drip was placed on hold and then was put back on anticoagulation. Currently in hemorrhagic shock due to retroperitoneal bleed. All anticoagulation on hold Continue local care. Appreciate general surgery consultation and recommendations-appreciate bedside debridement Appears blackened in color on 08/29 but Surgeon used silver nitrate to treat the bleeding Wound cx growing Pseudomonas and Cate. Likely to be colonization Wound care on board (9) Chronic anticoagulation: Plan: With Coumadin. He has a mechanical valve and target INR is 2.5-3.5 INR was subtherapeutic at 2 on 08/29 and thus the patient was started on Lovenox bridge. He then had a retroperitoneal hematoma leading to hemorrhagic shock and cardiac arrest. Currently all anticoagulation on hold Will need to start him back on heparin drip soon because of his mechanical valves. Currently heparin drip on hold as he is anemic today and getting blood transfusion (10) Uncontrolled diabetes mellitus with hyperglycemia: Plan: Type 2 diabetes. His hemoglobin A1c is severely elevated at 11.0% Patient's reports that he was started on Lantus 60 units at bedtime but she only gave it to him once and he became significantly hypoglycemic and delirious and she has been fearful to give it ever since. 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 Hold aspirin, Coumadin, all anticoagulation and all antiplatelet agents Resume statin once off daptomycin (12) Hypertension: Plan: Continue holding home amlodipine,clonidine, furosemide, carvedilol (13) Gout: Plan: Hold home allopurinol (14) BPH w urinary obs/LUTS: Plan: Davis catheter in place (15) Hypokalemia: Plan: Follow BMP and magnesium (16) History of aortic valve replacement with metallic valve: Plan: Noted, also with repair of aortic aneurysm at that time (17) Hyperlipidemia: Plan: Holding statin but would resume at high intensity dose due to strokes (18) Peripheral neuropathy: Plan: With chronic pain, takes pregabalin, gabapentin, and oxycodone as needed Would not combine gabapentin with Lyrica Can take oxycodone as needed but this does make him drowsy Plan Spoke to on the phone to update her on 08/31. Admission and Anticipated Discharge Date Admission Date: August 23, 2023 Subjective Patient is able to answer questions appropriately. However he is slow to respond. He is getting blood transfusion. Passed swallow eval yesterday 08/31 Review of Systems Review of Systems: All systems reviewed & are unremarkable except as noted in Subjective Physical Exam Physical Exam: General: Awake. Able to converse but slow to respond Heart: S1, S2/regular rate and rhythm, no murmur rubs or gallops Lungs: Clear to auscultation bilaterally. Normal effort Abdomen: Soft/nontender/nondistended. No hepatosplenomegaly Extremities: No clubbing/cyanosis. 1+ pitting bilateral edema Behavior: Appropriate, cooperative Results & Data Results & Data Vital Signs (Past 12 Hours) Vital Signs Temp Pulse Resp BP Pulse Ox O2 Flow Rate 09/02/23 11:23 37 C 82 23 155/73 H 100 4 09/02/23 11:08 36.4 C L 70 12 109/41 L 93 4 09/02/23 10:52 36.4 C L 80 18 144/72 H 100 4 09/02/23 10:50 36.4 C L 85 18 151/73 H 99 4 09/02/23 10:16 36.2 C L 81 20 142/72 H 95 4 09/02/23 08:58 36.2 C L 89 20 146/73 H 97 4 09/02/23 07:58 36.2 C L 82 20 138/61 95 4 09/02/23 07:28 36.2 C L 100 H 20 124/77 98 4 09/02/23 07:13 36.2 C L 87 24 121/84 97 4 09/02/23 06:56 36.2 C L 88 18 135/65 99 09/02/23 06:30 36.2 C L 78 23 96 09/02/23 06:30 136/95 09/02/23 06:15 131/88 09/02/23 06:15 36.3 C L 87 20 99 09/02/23 06:00 36.3 C L 81 22 96 09/02/23 06:00 142/78 H 09/02/23 05:30 134/81 09/02/23 05:30 36.3 C L 67 19 98 09/02/23 05:15 129/77 09/02/23 05:15 36.3 C L 81 21 97 09/02/23 05:00 127/79 09/02/23 05:00 36.3 C L 74 19 96 09/02/23 04:45 123/84 09/02/23 04:45 36.3 C L 102 H 22 99 09/02/23 04:30 36.3 C L 77 20 96 09/02/23 04:15 138/84 09/02/23 04:15 36.3 C L 77 18 98 09/02/23 04:00 36.3 C L 77 22 98 09/02/23 04:00 120/72 09/02/23 04:00 79 133/69 09/02/23 03:45 36.3 C L 87 23 97 09/02/23 03:45 126/84 09/02/23 03:30 36.3 C L 76 19 98 09/02/23 03:30 133/82 09/02/23 03:15 36.3 C L 82 21 98 09/02/23 03:15 137/74 09/02/23 03:00 36.3 C L 63 20 98 09/02/23 03:00 134/76 09/02/23 02:45 36.3 C L 71 20 97 09/02/23 02:45 129/80 09/02/23 02:39 79 18 98 2 09/02/23 02:30 36.3 C L 78 25 H 96 09/02/23 02:30 140/84 09/02/23 02:15 36.3 C L 74 23 97 09/02/23 02:15 127/75 09/02/23 02:00 36.3 C L 96 H 24 99 09/02/23 01:45 36.4 C L 85 25 H 98 09/02/23 01:45 121/73 09/02/23 01:30 126/77 09/02/23 01:30 36.4 C L 77 22 99 09/02/23 01:15 36.4 C L 78 20 100 09/02/23 01:15 134/76 09/02/23 01:00 120/72 09/02/23 01:00 36.4 C L 81 24 91 09/02/23 00:45 131/67 09/02/23 00:45 36.5 C 75 22 97 09/02/23 00:30 36.5 C 74 19 95 09/02/23 00:30 115/69 09/02/23 00:15 36.6 C 76 21 97 09/02/23 00:15 121/68 09/02/23 00:00 36.6 C 81 21 98 09/02/23 00:00 125/79 09/02/23 00:00 67 131/60 09/02/23 00:00 73 09/01/23 23:45 36.6 C 76 21 98 09/01/23 23:45 118/76 Laboratory Results Abnormal lab results 08/30/23 09/01/23 09/01/23 Range/Units 17:54 11:54 11:58 WBC (4.8-10.8) K/ul RBC (4.70-6.10) M/uL Hgb 7.9 L (14.0-18.0) g/dl Hct 23.1 L (42.0-52.0) % RDW Std Deviation (36.4-46.3) fL RDW Coeff of Malika (11.5-14.5) % Neut # (Auto) (1.40-6.50) K/uL [place] # (Auto) (0.11-0.59) K/uL Immature Gran # (Auto) (0.01-0.20) K/uL PT (9.0-12.0) Seconds INR (0.9-1.1) Potassium (3.5-5.1) mmol/L Chloride (98-107) mmol/L BUN (6-23) mg/dl BUN/Creatinine Ratio (10-20) Glucose (70-99(Fasting)) mg/dl POC Glucose 150 H (70-99) mg/dl Calcium (8.6-10.3) mg/dl Crossmatch See Detail 09/01/23 09/01/23 09/02/23 Range/Units 16:31 18:11 04:37 WBC 18.43 H (4.8-10.8) K/ul RBC 2.63 L (4.70-6.10) M/uL Hgb 7.5 L 7.0 L (14.0-18.0) g/dl Hct 22.7 L 21.5 L (42.0-52.0) % RDW Std Deviation 51.8 H (36.4-46.3) fL RDW Coeff of [place]ika 18.0 H (11.5-14.5) % Neut # (Auto) 14.51 H (1.40-6.50) K/uL [place] # (Auto) 1.39 H (0.11-0.59) K/uL Immature Gran # (Auto) 0.71 H (0.01-0.20) K/uL PT 13.0 H (9.0-12.0) Seconds INR 1.2 H (0.9-1.1) Potassium 3.4 L (3.5-5.1) mmol/L Chloride 108 H (98-107) mmol/L BUN 35 H (6-23) mg/dl BUN/Creatinine Ratio 33.3 H (10-20) Glucose 112 H (70-99(Fasting)) mg/dl POC Glucose 142 H (70-99) mg/dl Calcium 7.0 L (8.6-10.3) mg/dl Crossmatch 09/02/23 09/02/23 Range/Units 08:32 11:24 WBC (4.8-10.8) K/ul RBC (4.70-6.10) M/uL Hgb (14.0-18.0) g/dl Hct (42.0-52.0) % RDW Std Deviation (36.4-46.3) fL RDW Coeff of [place] (11.5-14.5) % Neut # (Auto) (1.40-6.50) K/uL [place] # (Auto) (0.11-0.59) K/uL Immature Gran # (Auto) (0.01-0.20) K/uL PT (9.0-12.0) Seconds INR (0.9-1.1) Potassium (3.5-5.1) mmol/L Chloride (98-107) mmol/L BUN (6-23) mg/dl BUN/Creatinine Ratio (10-20) Glucose (70-99(Fasting)) mg/dl POC Glucose 112 H 116 H (70-99) mg/dl Calcium (8.6-10.3) mg/dl Crossmatch PG Care Time/CCT Total # of Minutes Spent Total Time Spent with Patient: Total time spent is greater than 50% in coordination of care (as documented) at patient's floor/unit and/or counseling patient: Coding Level of Care Code 05216 SUB INP/OBS CARE 2/35MIN Diagnoses Cardiac arrest I46.9 Acute metabolic encephalopathy G93.41 Bacteremia R78.81 Acute CVA (cerebrovascular accident) I63.9 Atrial fibrillation I48.91 Respiratory failure J96.00 Chronicity: acute Respiratory failure complication: unspecified whether with hypoxia or hypercapnia Aspiration pneumonia of both lower lobes J69.0 Decubitus ulcer L89.90 Chronic anticoagulation Z79.01 Uncontrolled diabetes mellitus with hyperglycemia E11.65 History of stroke Z86.73 Hypertension I10 Gout M10.9 BPH w urinary obs/LUTS N40.1; N13.8 Hypokalemia E87.6 History of aortic valve replacement with metallic valve Z95.4 Hyperlipidemia E78.5 Peripheral neuropathy G62.9 (6) Respiratory failure Chronicity: acute Respiratory failure complication: unspecified whether with hypoxia or hypercapnia Qualified Code(s): J96.00 - Acute respiratory failure, unspecified whether with hypoxia or hypercapnia
[2023-09-02 11:56] LABS: Creatinine Clr Calc Pharmacy 17.7 ml/min; Est GFR (African American) 112.4 ml/min
--- NOTE | 2023-09-02 12:58 | Pharmacy Report ---
Pharmacy PK ABX Note - Date of Service September 02, 2023 - Assessment and Plan Assessment 09/01: * Day #2 of resumed Vancomycin therapy. Patient also on ceftriaxone. * Level returned today at 19.7 mcg/mL which is therapeutic but at the upper limit of normal. AUC monitoring software does predict this as a therapeutic dose with AUC/JANICE of 523. * Urine output was significant yesterday but patient is receiving Lasix IV. However, SCr has starting trending back down to normal, was 1.05 early this AM and then 0.83 on repeat. * Therefore, will continue current regimen with thought that trough level will start to trend down and not become supratherapeutic. Due to concern for toxicity, will order another level tomorrow prior to the 5th dose which will represent true steady state (to a degree with changing renal function). 08/31: * vancomycin was d/c'd yesterday afternoon and daptomycin resumed. Today, ID wished to switch back to vancomycin as we have susceptibilities for the aerococcus for vancomycin but are unable to obtain this for dapto. * Patient's scr did increase again today and urine output remains low. Will proceed with caution dosing and get another level tomorrow. * Last dose of vancomycin was 08/30 ~ 0500 and last dose of dapto was 08/30 @ 1700. Given this and renal function concerns, will not re-load and start with maintenance dosing. 08/30: * 57 year old M receiving vancomycin and cefepime for treatment of bacteremia, UTI and pulmonary sources. Patient is post cardiac arrest. Pertinent microbiologic data includes: urine culture growing proteus mirabilis and blood cx growing proteus mirabilis and aerococcus viridans. CT abd/pelvis showing left obstructing uretal stone. Scr increased somewhat since yesterday. Will monitor the transiency of this in the setting of acute clinical change. Based on the rise in scr and random level this morning will decrease maintenance dose. Plan Vancomycin * Current regimen: 1000 mg IV every 12 hours * Random level obtained 09/02/23 resulted as 19.7 mcg/mL. This is predicted to achieve target AUC/JANICE of 400-600 mg/L.hr * Predicted AUC at steady state: 523 mg/L.hr * Continue 1000 mg IV every 12 hours * Repeat random level ordered for: 4/28/24 Ceftriaxone * 2000 mg IV every 24 hours Pharmacy will continue to follow and will adjust dose/frequency as necessary. Thank you. Pharmacy has transitioned to AUC monitoring for vancomycin. AUC/JANICE is the preferred PK/PD target and is associated with decreased risk of nephrotoxicity compared to traditional trough targets.
[2023-09-02 15:25] LABS: BUN Creatinine Ratio 31.9 (10-20); Calcium 7.2 mg/dl (8.6-10.3); Creatinine Clr Calc Pharmacy 113.6 ml/min; Est GFR (African American) 107.3 ml/min; Est GFR (Non-African American) 92.6 ml/min; Potassium 3.2 mmol/L (3.5-5.1)
[2023-09-02] MEDS: METOPROLOL TARTRATE 25 MG TAB PO SCH (15:33)
[2023-09-02] MEDS: POTASSIUM CHLORIDE / WTR 20 MEQ/100 ML PLCT IV ONE (16:02)
[2023-09-02] MEDS: POTASSIUM CHLORIDE / WTR 10 MEQ/100 ML PLCT IV ONE (21:43)
[2023-09-02 21:44] LABS: Hematocrit (blood only) 26.5 % (42.0-52.0)
[2023-09-02] MEDS: POTASSIUM CHLORIDE 20 MEQ/15 ML UDC PO STA (21:49)
[2023-09-03 04:21] LABS: Basophils # (auto) 0.05 K/uL (0.00-0.20); Basophils % (auto) 0.3 %; Hematocrit (blood only) 29.3 % (42.0-52.0); Hemoglobin 9.6 g/dl (14.0-18.0); Immature Granulocytes % (auto) 4.1 %; Lymphocytes # (auto) 1.33 K/uL (1.20-3.40); Lymphocytes % (auto) 7.9 %; Mean Corpuscular Hemoglobin 27.7 pg (25.0-34.0); Mean Corpuscular Hgb Conc 32.8 g/dL (32.0-36.0); Mean Corpuscular Volume 84.7 fL (80.0-100.0); Mean Platelet Volume 10.2 fL (9.4-12.4); Monocytes # (auto) 1.09 K/uL (0.11-0.59); Monocytes % (auto) 6.4 %; Neutrophils # (auto) 13.73 K/uL (1.40-6.50); Neutrophils % (auto) 81.3 %; Nucleated RBC # (auto) 0.04 K/uL (0.00-0.12); Nucleated RBC % (auto) 0.2 %; Platelet Count 196 K/uL (130-400); RDW Coefficient of Variation 18.1 % (11.5-14.5); RDW Standard Deviation 52.1 fL (36.4-46.3); Red Blood Count 3.46 M/uL (4.70-6.10)
[2023-09-03 04:36] LABS: Calcium 7.1 mg/dl (8.6-10.3); Creatinine Clr Calc Pharmacy 129.2 ml/min; Est GFR (African American) 114.1 ml/min; Est GFR (Non-African American) 98.5 ml/min; Magnesium 1.6 mg/dl (1.7-2.4)
[2023-09-03 04:47] LABS: INR 1.2 (0.9-1.1); Prothrombin Time 13.1 Seconds (9.0-12.0)
[2023-09-03] MEDS: MAGNESIUM SULFATE / D5W 1 GM/100 ML BAG IV SCH (08:12)
[2023-09-03 08:19] LABS: Hematocrit (blood only) 27.4 % (42.0-52.0); Hemoglobin 9.1 g/dl (14.0-18.0)
[2023-09-03] MEDS: POTASSIUM CHLORIDE CRTAB 20 MEQ TABCR PO STA (08:24)
[2023-09-03] MEDS: POTASSIUM CHLORIDE / WTR 10 MEQ/100 ML PLCT IV SCH (08:28)
[2023-09-03] MEDS: HYDROCORTISONE SOD 25 MG in SYRINGE 0 ML IV SCH (08:33)
--- NOTE | 2023-09-03 11:46 | Pharmacy Report ---
Pharmacy PK ABX Note - Date of Service September 03, 2023 - Assessment and Plan Assessment 09/02: * Day #3 of resumed vancomycin therapy. Remains on ceftriaxone as well. * Vanc level decreased to 18.9 mcg/mL today. Kidney function continues to improve. Leukocytosis also improving. 09/01: * Day #2 of resumed Vancomycin therapy. Patient also on ceftriaxone. * Level returned today at 19.7 mcg/mL which is therapeutic but at the upper limit of normal. AUC monitoring software does predict this as a therapeutic dose with AUC/JANICE of 523. * Urine output was significant yesterday but patient is receiving Lasix IV. However, SCr has starting trending back down to normal, was 1.05 early this AM and then 0.83 on repeat. * Therefore, will continue current regimen with thought that trough level will start to trend down and not become supratherapeutic. Due to concern for toxicity, will order another level tomorrow prior to the 5th dose which will represent true steady state (to a degree with changing renal function). 08/31: * vancomycin was d/c'd yesterday afternoon and daptomycin resumed. Today, ID wished to switch back to vancomycin as we have susceptibilities for the aerococcus for vancomycin but are unable to obtain this for dapto. * Patient's scr did increase again today and urine output remains low. Will proceed with caution dosing and get another level tomorrow. * Last dose of vancomycin was 08/30 ~ 0500 and last dose of dapto was 08/30 @ 1700. Given this and renal function concerns, will not re-load and start with maintenance dosing. 08/30: * 57 year old M receiving vancomycin and cefepime for treatment of bacteremia, UTI and pulmonary sources. Patient is post cardiac arrest. Pertinent microbiologic data includes: urine culture growing proteus mirabilis and blood cx growing proteus mirabilis and aerococcus viridans. CT abd/pelvis showing left obstructing uretal stone. Scr increased somewhat since yesterday. Will monitor the transiency of this in the setting of acute clinical change. Based on the rise in scr and random level this morning will decrease maintenance d ose. Plan Vancomycin * Current regimen: 1000 mg IV every 12 hours * Random level obtained 09/03/23 resulted as 18.9 mcg/mL. This is predicted to achieve target AUC/JANICE of 400-600 mg/L.hr * Predicted AUC at steady state: 515 mg/L.hr * Continue 1000 mg IV every 12 hours * Repeat random level ordered for: 09/05/23 Ceftriaxone * 2000 mg IV every 24 hours Pharmacy will continue to follow and will adjust dose/frequency as necessary. Thank you. Pharmacy has transitioned to AUC monitoring for vancomycin. AUC/JANICE is the preferred PK/PD target and is associated with decreased risk of nephrotoxicity compared to traditional trough targets.
--- NOTE | 2023-09-03 11:53 | Hospitalist Progress Note ---
Date of Service September 03, 2023 Assessment & Plan (1) Cardiac arrest: Plan: First cardiac arrest was outside of the hospital. This was secondary to septic shock. Extubated on 08/24, off of pressors. Patient recovered from it and was transferred out of the ICU. Still on treatment for septicemia. Second cardiac arrest was on 08/29, secondary to hemorrhagic shock from retroperitoneal and intramuscular bleed. Anticoagulation has been held Patient received 2 units PRBC, protamine and FFP on 08/29, 2 more units PRBC on 08/30. 2 more units PRBC on 09/01 (2) Acute metabolic encephalopathy: Plan: Started around 08/25 as per patient's but worsened overnight on 08/26 and 08/27 with increased weakness, decreased responsiveness, mostly nonverbal Lactate elevated but otherwise procalcitonin trending downward, renal failure is resolved, some hypokalemia but not severe, sepsis is improving, afebrile Initially thought could be withdrawal from not receiving home Lyrica, gabapentin, or oxycodone CT head negative, but MRI brain on 08/27 showed multiple acute strokes-likely culprit Treating strokes Continue antibiotic therapy for bacteremia (3) Bacteremia: Plan: With septicemia and septic shock-febrile, with leukocytosis, septic shock and PEA arrest on arrival Aerococcus viridans and Proteus isolated in blood cultures. There is also coagulase-negative Staphylococcus which is likely a contaminant. His urine culture also grew Proteus initially and again on 08/27 Aerococcus is also most commonly a organism as per ID. Urine is most likely source but there is also a sacral wound. Sacral wound growing Pseudomonas and Cate, likely colonization Appreciate ID consultation DEO is indicated given multiple embolic appearing strokes-could be septic emboli. DEO was being planned 08/29. However the patient went into cardiac arrest and the procedure was postponed. Currently the patient is on ceftriaxone, vancomycin per ID recommendations Repeat blood cultures on 08/25, 08/27 and 08/29 remain no growth to date Repeat urine culture on 08/27 with Proteus despite ceftriaxone Urology did cystoscopy and left ureteral stent placement 08/30 Continue ceftriaxone for Proteus. Continue vancomycin for coverage for the Aerococcus Follow CBC, CMP, CK (4) Acute CVA (cerebrovascular accident): Plan: Brain MRI ordered on 08/27 due to ongoing expressive aphasia and metabolic encephalopathy, found multiple acute strokes-2 subcentimeter in right frontal an d parietal lobes, 2 additional questionable punctate acute infarcts in left occipital and left cerebellar hemisphere He was only off of anticoagulation for 1-2 days at the most during this hospitalization after his heparin drip was discontinued for sacral wound bleeding-heparin drip was resumed but due to compatibility issues and poor IV access, was switched to Lovenox SQ 1 mg/kg twice daily. Seems less likely to be cardioembolic from clot, however could be septic emboli from endocarditis Could be from CPR/resuscitation and aortic arch plaque rupture? Dysphagia improved and right-sided weakness was improving. He had a video swallow on 08/28-able to advance diet to mildly thickened liquids and pured food Holding statin due to daptomycin therapy and also patient not able to take p.o. safely Speech therapy consulted again after the second cardiac arrest He has an allergy to IV contrast dye of hives but reports he has been able to tolerate it with Benadryl in the past-defer CTA head/neck/chest for now Carotid Dopplers negative Continue neuro checks and stroke scale every shift Lipid panel with very low cholesterol, hemoglobin A1c severely elevated at 11.0%-he is not on any diabetes medications-diabetes control addressed Neurology consult placed-thinks strokes due to sepsis, thinks that aspirin is not necessary but patient was on aspirin prior to admission for his previous cardiac issues so was continued. Currently held due to retroperitoneal bleed and hemorrhagic shock. Plan for DEO is being held for the time being due to patient's critical condition. (5) Atrial fibrillation: Plan: Developed August 25 p.m. and is new onset for patient Heparin drip was started but subsequently discontinued due to bleeding from the freshly debrided sacral decubitus. Was switched to therapeutic Lovenox He was treated for Coumadin toxicity with parenteral vitamin K on August 25, and INR was subtherapeutic Coumadin 7.5 mg was administered x 1 on 08/26 but then held due to NPO status--> resumed 08/29 as now able to take po Was started on Lovenox SQ 100 Mg every 12 hours for bridging On 08/29, had hemorrhagic shock leading to PEA arrest Currently all anticoagulation being held due to retroperitoneal bleed and hemorrhagic shock Now on metoprolol 12.5 p.o. twice daily Monitor on telemetry (6) Respiratory failure: Plan: Acute hypoxic respiratory failure. He was extubated on the morning of August 24. Resolved. Reintubated as part of code on 08/29. Now extubated 08/31. (7) Aspiration pneumonia of both lower lobes: Plan: Suspected aspiration pneumonia in both lower lobes on admission but repeat chest x-ray is now clear. No need for antibiotic coverage for pneumonia at this point speech therapy following as he did aspirate at the bedside of thin liquids with water on 08/27 in the setting of newly diagnosed acute strokes Now with video swallow and he is aspirating thin liquids but is able to tolerate mildly thickened liquids and pured foods Passed speech evaluation on 08/31. Started on a diet but patient has a very weak voice. He may not pass his video swallow eval. May need to readdress nutrition at a later time with the . Need feeding tube? (8) Decubitus ulcer: Plan: Debrided on August 25. Some minor bleeding occurred with heparin drip on August 25 and heparin drip was placed on hold and then was put back on anticoagulation. Currently in hemorrhagic shock due to retroperitoneal bleed. All anticoagulation on hold Continue local care. Appreciate general surgery consultation and recommendations-appreciate bedside debridement Appears blackened in color on 08/29 but Surgeon used silver nitrate to treat the bleeding Wound cx growing Pseudomonas and Cate. Likely to be colonization Wound care on board (9) Chronic anticoagulation: Plan: With Coumadin. He has a mechanical valve and target INR is 2.5-3.5 INR was subtherapeutic at 2 on 08/29 and thus the patient was started on Lovenox bridge. He then had a retroperitoneal hematoma leading to hemorrhagic shock and cardiac arrest. Currently all anticoagulation on hold Will need to start him back on heparin drip soon because of his mechanical valves. Currently heparin drip on hold Dilemma with anticoagulation Without anticoagulation, mechanical valves will clot With anticoagulation, recently had internal bleeding leading to cardiac arrest. Resuming anticoagulation carries bleeding risk. We are in a facility where IR will not be able to stop the bleeding immediately. Transfer to a tertiary care center as an option was offered but the declined. Since hemoglobin is stable today after receiving blood transfusion and diuretics yesterday, I will wait for another day to make sure hemoglobin stable. If hemoglobin stable tomorrow, will consider starting heparin drip changed CODE STATUS to DNR/DNI today 09/02 after a lengthy discussion was held on the phone If he bleeds, she may choose comfort care If he clots, she may choose comfort care (10) Uncontrolled diabetes mellitus with hyperglycemia: Plan: Type 2 diabetes. His hemoglobin A1c is severely elevated at 11.0% Patient's reports that he was started on Lantus 60 units at bedtime but she only gave it to him once and he became significantly hypoglycemic and delirious and she has been fearful to give it ever since. 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 Hold aspirin, Coumadin, all anticoagulation and all antiplatelet agents Resume statin at a later time if and when swallowing safely (12) Hypertension: Plan: Continue holding home amlodipine,clonidine, furosemide, carvedilol (13) Gout: Plan: Hold home allopurinol (14) BPH w urinary obs/LUTS: Plan: Davis catheter in place (15) Hypokalemia: Plan: Follow BMP and magnesium (16) History of aortic valve replacement with metallic valve: Plan: Noted, also with repair of aortic aneurysm at that time (17) Hyperlipidemia: Plan: Holding statin but would resume at high intensity dose due to strokes (18) Peripheral neuropathy: Plan: With chronic pain, takes pregabalin, gabapentin, and oxycodone as needed Would not combine gabapentin with Lyrica Can take oxycodone as needed but this does make him drowsy Plan 09/02: declined transfer to a tertiary facility. She changed his CODE STATUS to DNR/DNI. If his condition declines, she will choose comfort measures. Admission and Anticipated Discharge Date Admission Date: August 23, 2023 Subjective Patient has a very weak voice. But he is able to nod and shake his head appropriately. I was able to hold a conversation with him to update him about his clinical condition. He was interacting with me with facial expressions and body gestures but was not able to voice his words very well. I personally spoke to the patient's , Chastity Graham, on the phone. Updated her about his clinical condition. Explained that we are in a dilemma. He has a mechanical valve for which he needs to be on anticoagulation. With out to the anticoagulation, the valve will clot. But at the same time, he recently had internal bleeding leading to cardiac arrest when he was on anticoagulation. We went over all our options, including the option of transferring him to a tertiary facility like [facility] where they can do an IR procedure to stop the bleeding if he starts to bleed on anticoagulation. She did not want him transferred. In fact, she wanted his CODE STATUS to be changed to a DNR/DNI. She tells me that he would never want to go to a detention and that seems to be the most likely outcome and thus she decided on DNR/DNI. Review of Systems Review of Systems: Unobtainable due to cognitive status Physical Exam Physical Exam: General: Awake. Voice is very weak but able to hold a conversation using facial expressions and body gestures. Heart: S1, S2/regular rate and rhythm, no murmur rubs or gallops Lungs: Clear to auscultation bilaterally. Normal effort Abdomen: Soft/nontender/nondistended. No hepatosplenomegaly Extremities: No clubbing/cyanosis. 1+ pitting bilateral edema Behavior: Appropriate, cooperative Results & Data Results & Data Vital Signs (Past 12 Hours) Vital Signs Temp Pulse Resp BP Pulse Ox O2 Del Method O2 Flow Rate 09/03/23 08:07 37.0 C 112 H 21 130/75 95 Room Air 09/03/23 07:24 36.9 C 89 23 152/109 H 97 09/03/23 06:00 36.7 C 116 H 25 H 100 09/03/23 04:00 156/77 H 09/03/23 04:00 36.7 C 66 20 97 09/03/23 03:02 67 19 96 2 09/03/23 02:00 36.7 C 73 22 100 09/03/23 01:48 98 2 09/03/23 00:00 137/51 L 09/03/23 00:00 36.9 C 68 27 H 92 09/03/23 00:00 71 Laboratory Results Abnormal lab results 08/30/23 09/02/23 09/02/23 Range/Units 17:54 14:44 16:26 WBC (4.8-10.8) K/ul RBC (4.70-6.10) M/uL Hgb 9.2 L (14.0-18.0) g/dl Hct (42.0-52.0) % RDW Std Deviation (36.4-46.3) fL RDW Coeff of Malika (11.5-14.5) % Neut # (Auto) (1.40-6.50) K/uL Caldwell # (Auto) (0.11-0.59) K/uL Immature Gran # (Auto) (0.01-0.20) K/uL PT (9.0-12.0) Seconds INR (0.9-1.1) Potassium 3.2 L (3.5-5.1) mmol/L BUN 29 H (6-23) mg/dl BUN/Creatinine Ratio 31.9 H (10-20) Glucose 143 H (70-99(Fasting)) mg/dl POC Glucose 144 H (70-99) mg/dl Calcium 7.2 L (8.6-10.3) mg/dl Magnesium (1.7-2.4) mg/dl Crossmatch See Detail 09/02/23 09/02/23 09/03/23 Range/Units 21:15 21:33 03:44 WBC 16.90 H (4.8-10.8) K/ul RBC 3.46 L (4.70-6.10) M/uL Hgb 9.0 L 9.6 L (14.0-18.0) g/dl Hct 26.5 L 29.3 L (42.0-52.0) % RDW Std Deviation 52.1 H (36.4-46.3) fL RDW Coeff of Malika 18.1 H (11.5-14.5) % Neut # (Auto) 13.73 H (1.40-6.50) K/uL Caldwell # (Auto) 1.09 H (0.11-0.59) K/uL Immature Gran # (Auto) 0.70 H (0.01-0.20) K/uL PT 13.1 H (9.0-12.0) Seconds INR 1.2 H (0.9-1.1) Potassium 3.0 L (3.5-5.1) mmol/L BUN 24 H (6-23) mg/dl BUN/Creatinine Ratio 30.0 H (10-20) Glucose 151 H (70-99(Fasting)) mg/dl POC Glucose 138 H (70-99) mg/dl Calcium 7.1 L (8.6-10.3) mg/dl Magnesium 1.6 L (1.7-2.4) mg/dl Crossmatch 09/03/23 09/03/23 09/03/23 Range/Units 07:25 07:50 11:19 WBC (4.8-10.8) K/ul RBC (4.70-6.10) M/uL Hgb 9.1 L (14.0-18.0) g/dl Hct 27.4 L (42.0-52.0) % RDW Std Deviation (36.4-46.3) fL RDW Coeff of Malika (11.5-14.5) % Neut # (Auto) (1.40-6.50) K/uL Caldwell # (Auto) (0.11-0.59) K/uL Immature Gran # (Auto) (0.01-0.20) K/uL PT (9.0-12.0) Seconds INR (0.9-1.1) Potassium (3.5-5.1) mmol/L BUN (6-23) mg/dl BUN/Creatinine Ratio (10-20) Glucose (70-99(Fasting)) mg/dl POC Glucose 151 H 183 H (70-99) mg/dl Calcium (8.6-10.3) mg/dl Magnesium (1.7-2.4) mg/dl Crossmatch PG Care Time/CCT Total # of Minutes Spent Total Time Spent with Patient: Total time spent is greater than 50% in coordination of care (as documented) at patient's floor/unit and/or counseling patient: Coding Level of Care Code 60124 SUB INP/OBS CARE 2/35MIN Diagnoses Cardiac arrest I46.9 Acute metabolic encephalopathy G93.41 Bacteremia R78.81 Acute CVA (cerebrovascular accident) I63.9 Atrial fibrillation I48.91 Respiratory failure J96.00 Chronicity: acute Respiratory failure complication: unspecified whether with hypoxia or hypercapnia Aspiration pneumonia of both lower lobes J69.0 Decubitus ulcer L89.90 Chronic anticoagulation Z79.01 Uncontrolled diabetes mellitus with hyperglycemia E11.65 History of stroke Z86.73 Hypertension I10 Gout M10.9 BPH w urinary obs/LUTS N40.1; N13.8 Hypokalemia E87.6 History of aortic valve replacement with metallic valve Z95.4 Hyperlipidemia E78.5 Peripheral neuropathy G62.9 (6) Respiratory failure Chronicity: acute Respiratory failure complication: unspecified whether with hypoxia or hypercapnia Qualified Code(s): J96.00 - Acute respiratory failure, unspecified whether with hypoxia or hypercapnia
[2023-09-03] MEDS: LACTULOSE SYRUP 30 GM/45 ML UDP PO STA (14:32)
[2023-09-03 16:09] LABS: Hematocrit (blood only) 29.4 % (42.0-52.0); Hemoglobin 9.8 g/dl (14.0-18.0)
[2023-09-03 23:31] LABS: Hematocrit (blood only) 28.9 % (42.0-52.0); Hemoglobin 9.7 g/dl (14.0-18.0)
[2023-09-04 08:10] LABS: Hematocrit (blood only) 29.5 % (42.0-52.0); Hemoglobin 9.9 g/dl (14.0-18.0)
[2023-09-04 08:11] LABS: Hematocrit (blood only) 29.9 % (42.0-52.0); Hemoglobin 9.8 g/dl (14.0-18.0); Mean Corpuscular Hemoglobin 27.8 pg (25.0-34.0); Mean Corpuscular Hgb Conc 32.8 g/dL (32.0-36.0); Mean Corpuscular Volume 84.9 fL (80.0-100.0); Mean Platelet Volume 9.9 fL (9.4-12.4); Platelet Count 212 K/uL (130-400); RDW Coefficient of Variation 18.6 % (11.5-14.5); RDW Standard Deviation 50.9 fL (36.4-46.3); Red Blood Count 3.52 M/uL (4.70-6.10); White Blood Count 16.79 K/ul (4.8-10.8)
[2023-09-04 08:27] LABS: BUN Creatinine Ratio 23.2 (10-20); Calcium 7.2 mg/dl (8.6-10.3); Creatinine Clr Calc Pharmacy 183.6 ml/min; Est GFR (African American) 132.1 ml/min; Potassium 2.7 mmol/L (3.5-5.1)
[2023-09-04] MEDS ORDERED: Heparin IV Adult Wt-Based Standard *NO* INITIAL Bolus Protocol IV STA (09:06)
[2023-09-04] MEDS: HEPARIN SODIUM/DEXTROSE 25,000 UNITS/500 ML BAG IV SCH (10:40)
--- NOTE | 2023-09-04 12:12 | Hospitalist Progress Note ---
Date of Service September 04, 2023 Assessment & Plan (1) Cardiac arrest: Plan: First cardiac arrest was outside of the hospital. This was secondary to septic shock. Extubated on 08/24, off of pressors. Patient recovered from it and was transferred out of the ICU. Still on treatment for septicemia. Second cardiac arrest was on 08/29, secondary to hemorrhagic shock from retroperitoneal and intramuscular bleed. Anticoagulation has been held Patient received 2 units PRBC, protamine and FFP on 08/29, 2 more units PRBC on 08/30. 2 more units PRBC on 09/01. Hemoglobin stable the last 2 days. confirmed DNR/DNI status (2) Acute metabolic encephalopathy: Plan: Started around 08/25 as per patient's but worsened overnight on 08/26 and 08/27 with increased weakness, decreased responsiveness, mostly nonverbal Lactate elevated but otherwise procalcitonin trending downward, renal failure is resolved, some hypokalemia but not severe, sepsis is improving, afebrile Initially thought could be withdrawal from not receiving home Lyrica, gabapentin, or oxycodone CT head negative, but MRI brain on 08/27 showed multiple acute strokes-likely culprit Treating strokes Continue antibiotic therapy for bacteremia (3) Bacteremia: Plan: With septicemia and septic shock-febrile, with leukocytosis, septic shock and PEA arrest on arrival Aerococcus viridans and Proteus isolated in blood cultures. There is also coagulase-negative Staphylococcus which is likely a contaminant. His urine culture also grew Proteus initially and again on 08/27 Aerococcus is also most commonly a organism as per ID. Urine is most likely source but there is also a sacral wound. Sacral wound growing Pseudomonas and Cate, likely colonization Appreciate ID consultation DEO is indicated given multiple embolic appearing strokes-could be septic emboli. DEO was being planned 08/29. However the patient went into cardiac arrest and the procedure was postponed. Currently the patient is on ceftriaxone, vancomycin per ID recommendations Repeat blood cultures on 08/25, 08/27 and 08/29 remain no growth to date Repeat urine culture on 08/27 with Proteus despite ceftriaxone Urology did cystoscopy and left ureteral stent placement 08/30 Continue ceftriaxone for Proteus. Continue vancomycin for coverage for the Aerococcus Follow CBC, CMP, CK (4) Acute CVA (cerebrovascular accident): Plan: Brain MRI ordered on 08/27 due to ongoing expressive aphasia and metabolic encephalopathy, found multiple acute strokes-2 subcentimeter in right frontal and parietal lobes, 2 additional questionable punctate acute infarcts in left occipital and left cerebellar hemisphere He was only off of anticoagulation for 1-2 days at the most during this hospitalization after his heparin drip was discontinued for sacral wound bleeding-heparin drip was resumed but due to compatibility issues and poor IV access, was switched to Lovenox SQ 1 mg/kg twice daily. Seems less likely to be cardioembolic from clot, however could be septic emboli from endocarditis Could be from CPR/resuscitation and aortic arch plaque rupture? Dysphagia improved and right-sided weakness was improving. He had a video swallow on 08/28-able to advance diet to mildly thickened liquids and pured food Holding statin due to daptomycin therapy and also patient not able to take p.o. safely Speech therapy consulted again after the second cardiac arrest He has an allergy to IV contrast dye of hives but reports he has been able to tolerate it with Benadryl in the past-defer CTA head/neck/chest for now Carotid Dopplers negative Continue neuro checks and stroke scale every shift Lipid panel with very low cholesterol, hemoglobin A1c severely elevated at 11.0%-he is not on any diabetes medications-diabetes control addressed Neurology consult placed-thinks strokes due to sepsis, thinks that aspirin is not necessary but patient was on aspirin prior to admission for his previous cardiac issues so was continued. Currently held due to retroperitoneal bleed and hemorrhagic shock. Plan for DEO is being held for the time being due to patient's critical condition. Patient is at risk for further strokes. Patient had bacteremia, DEO not done yet. Not sure if he has valvular vegetations. Moreover he has mechanical valves and has been off of anticoagulation for 5-6 days. If patient's condition gets worse, wants him to be made comfort care. Consulted palliative care. (5) Atrial fibrillation: Plan: Developed August 25 p.m. and is new onset for patient Heparin drip was started but subsequently discontinued due to bleeding from the freshly debrided sacral decubitus. Was switched to therapeutic Lovenox He was treated for Coumadin toxicity with parenteral vitamin K on August 25, and INR was subtherapeutic Coumadin 7.5 mg was administered x 1 on 08/26 but then held due to NPO status--> resumed 08/29 as now able to take po Was started on Lovenox SQ 100 Mg every 12 hours for bridging On 08/29, had hemorrhagic shock leading to PEA arrest All anticoagulation was held due to retroperitoneal bleed and hemorrhagic shock. Resumed heparin drip today 09/03 without bolus. Now on metoprolol 12.5 p.o. twice daily Monitor on telemetry (6) Respiratory failure: Plan: Acute hypoxic respiratory failure. He was extubated on the morning of August 24. Resolved. Reintubated as part of code on 08/29. Now extubated 08/31. (7) Aspiration pneumonia of both lower lobes: Plan: Suspected aspiration pneumonia in both lower lobes on admission but repeat chest x-ray is now clear. No need for antibiotic coverage for pneumonia at this point speech therapy following as he did aspirate at the bedside of thin liquids with water on 08/27 in the setting of newly diagnosed acute strokes Now with video swallow and he is aspirating thin liquids but is able to tolerate mildly thickened liquids and pured foods Passed speech evaluation on 08/31. Started on a diet but patient has a very weak voice. He may not pass his video swallow eval. May need to readdress nutrition at a later time with the . Need feeding tube? (8) Decubitus ulcer: Plan: Debrided on August 25. Some minor bleeding occurred with heparin drip on August 25 and heparin drip was placed on hold and then was put back on anticoagulation. Currently in hemorrhagic shock due to retroperitoneal bleed. All anticoagulation on hold Continue local care. Appreciate general surgery consultation and recommendations-appreciate bedside debridement Appears blackened in color on 08/29 but Surgeon used silver nitrate to treat the bleeding Wound cx growing Pseudomonas and Cate. Likely to be colonization Wound care on board (9) Chronic anticoagulation: Plan: With Coumadin. He has a mechanical valve and target INR is 2.5-3.5 INR was subtherapeutic at 2 on 08/29 and thus the patient was started on Lovenox bridge. He then had a retroperitoneal hematoma leading to hemorrhagic shock and cardiac arrest. Currently all anticoagulation on hold Will need to start him back on heparin drip soon because of his mechanical valves. Currently heparin drip on hold Dilemma with anticoagulation Without anticoagulation, mechanical valves will clot With anticoagulation, recently had internal bleeding leading to cardiac arrest. Resuming anticoagulation carries bleeding risk. We are in a facility where IR will not be able to stop the bleeding immediately. Transfer to a tertiary care center as an option was offered but the declined. Hemoglobin has been stable for 2 days. Spoke to and started him on heparin drip. changed CODE STATUS to DNR/DNI 09/02 after a lengthy discussion was held on the phone If he bleeds, she may choose comfort care If he clots, she may choose comfort care Palliative care consulted (10) Uncontrolled diabetes mellitus with hyperglycemia: Plan: Type 2 diabetes. His hemoglobin A1c is severely elevated at 11.0% Patient's reports that he was started on Lantus 60 units at bedtime but she only gave it to him once and he became significantly hypoglycemic and delirious and she has been fearful to give it ever since. 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 Hold aspirin, Coumadin, all anticoagulation and all antiplatelet agents Resume statin at a later time if and when swallowing safely (12) Hypertension: Plan: Continue holding home amlodipine,clonidine, furosemide, carvedilol (13) Gout: Plan: Hold home allopurinol (14) BPH w urinary obs/LUTS: Plan: Davis catheter in place (15) Hypokalemia: Plan: Follow BMP and magnesium (16) History of aortic valve replacement with metallic valve: Plan: Noted, also with repair of aortic aneurysm at that time (17) Hyperlipidemia: Plan: Holding statin but would resume at high intensity dose due to strokes (18) Peripheral neuropathy: Plan: With chronic pain, takes pregabalin, gabapentin, and oxycodone as needed Would not combine gabapentin with Lyrica Can take oxycodone as needed but this does make him drowsy Plan 09/02: declined transfer to a tertiary facility. She changed his CODE STATUS to DNR/DNI. If his condition declines, she will choose comfort measures. 09/03: Heparin drip resumed cautiously after speaking to . Admission and Anticipated Discharge Date Admission Date: August 23, 2023 Subjective Patient was sleeping when I walked into the room. He woke up. Still has a very weak voice. He is able to mouth words and respond to my conversation by facial expressions and gestures. Noted that his hemoglobin has stayed stable in the nines range. I spoke to his on the phone. She wants me to move forward with starting the heparin drip today. She was informed that this may lead to another bleed and cardiac arrest. She confirmed that if he goes downhill, he would want him to be made comfortable. She confirmed the DNR/DNI status. Review of Systems Review of Systems: Unobtainable due to cognitive status Physical Exam Physical Exam: General: Awake. Voice is very weak but able to hold a conversation using facial expressions and body gestures. Heart: S1, S2/regular rate and rhythm, no murmur rubs or gallops Lungs: Clear to auscultation bilaterally. Normal effort Abdomen: Soft/nontender/nondistended. No hepatosplenomegaly Extremities: No clubbing/cyanosis. 1+ pitting bilateral edema Behavior: Appropriate, cooperative Results & Data Results & Data Vital Signs (Past 12 Hours) Vital Signs Temp Pulse Pulse Resp BP BP Pulse Ox 09/04/23 10:57 36.6 C 77 18 152/87 H 95 09/04/23 08:00 92 H 09/04/23 07:07 36.4 C L 79 20 168/83 H 94 09/04/23 02:22 67 22 98 09/04/23 02:16 36.8 C 76 26 H 139/89 98 09/04/23 00:33 O2 Del Method O2 Flow Rate 09/04/23 10:57 Room Air 09/04/23 08:00 09/04/23 07:07 CPAP 09/04/23 02:22 2 09/04/23 02:16 BiPAP 09/04/23 00:33 Room Air Laboratory Results Abnormal lab results 09/03/23 09/03/23 09/03/23 Range/Units 15:41 16:17 16:43 WBC (4.8-10.8) K/ul RBC (4.70-6.10) M/uL Hgb 9.8 L (14.0-18.0) g/dl Hct 29.4 L (42.0-52.0) % RDW Std Deviation (36.4-46.3) fL RDW Coeff of Malika (11.5-14.5) % Potassium (3.5-5.1) mmol/L Carbon Dioxide (21-32) mmol/L Creatinine (0.6-1.4) mg/dl BUN/Creatinine Ratio (10-20) Glucose (70-99(Fasting)) mg/dl POC Glucose 222 H 215 H (70-99) mg/dl Calcium (8.6-10.3) mg/dl 09/03/23 09/03/23 09/04/23 Range/Units 20:00 22:53 07:09 WBC (4.8-10.8) K/ul RBC (4.70-6.10) M/uL Hgb 9.7 L (14.0-18.0) g/dl Hct 28.9 L (42.0-52.0) % RDW Std Deviation (36.4-46.3) fL RDW Coeff of Malika (11.5-14.5) % Potassium (3.5-5.1) mmol/L Carbon Dioxide (21-32) mmol/L Creatinine (0.6-1.4) mg/dl BUN/Creatinine Ratio (10-20) Glucose (70-99(Fasting)) mg/dl POC Glucose 187 H 118 H (70-99) mg/dl Calcium (8.6-10.3) mg/dl 09/04/23 09/04/23 09/04/23 Range/Units 07:44 07:44 07:44 WBC 16.79 H (4.8-10.8) K/ul RBC 3.52 L (4.70-6.10) M/uL Hgb 9.8 L 9.9 L (14.0-18.0) g/dl Hct 29.9 L 29.5 L (42.0-52.0) % RDW Std Deviation 50.9 H (36.4-46.3) fL RDW Coeff of Malika 18.6 H (11.5-14.5) % Potassium 2.7 L (3.5-5.1) mmol/L Carbon Dioxide 36 H (21-32) mmol/L Creatinine 0.56 L (0.6-1.4) mg/dl BUN/Creatinine Ratio 23.2 H (10-20) Glucose 125 H (70-99(Fasting)) mg/dl POC Glucose (70-99) mg/dl Calcium 7.2 L (8.6-10.3) mg/dl 09/04/23 Range/Units 11:00 WBC (4.8-10.8) K/ul RBC (4.70-6.10) M/uL Hgb (14.0-18.0) g/dl Hct (42.0-52.0) % RDW Std Deviation (36.4-46.3) fL RDW Coeff of Malika (11.5-14.5) % Potassium (3.5-5.1) mmol/L Carbon Dioxide (21-32) mmol/L Creatinine (0.6-1.4) mg/dl BUN/Creatinine Ratio (10-20) Glucose (70-99(Fasting)) mg/dl POC Glucose 125 H (70-99) mg/dl Calcium (8.6-10.3) mg/dl PG Care Time/CCT Total # of Minutes Spent Total Time Spent with Patient: Total time spent is greater than 50% in coordination of care (as documented) at patient's floor/unit and/or counseling patient: Coding Level of Care Code 71476 SUB INP/OBS CARE 2/35MIN Diagnoses Cardiac arrest I46.9 Acute metabolic encephalopathy G93.41 Bacteremia R78.81 Acute CVA (cerebrovascular accident) I63.9 Atrial fibrillation I48.91 Respiratory failure J96.00 Chronicity: acute Respiratory failure complication: unspecified whether with hypoxia or hypercapnia Aspiration pneumonia of both lower lobes J69.0 Decubitus ulcer L89.90 Chronic anticoagulation Z79.01 Uncontrolled diabetes mellitus with hyperglycemia E11.65 History of stroke Z86.73 Hypertension I10 Gout M10.9 BPH w urinary obs/LUTS N40.1; N13.8 Hypokalemia E87.6 History of aortic valve replacement with metallic valve Z95.4 Hyperlipidemia E78.5 Peripheral neuropathy G62.9 (6) Respiratory failure Chronicity: acute Respiratory failure complication: unspecified whether with hypoxia or hypercapnia Qualified Code(s): J96.00 - Acute respiratory failure, unspecified whether with hypoxia or hypercapnia
--- NOTE | 2023-09-04 15:23 | Infectious Disease Progress Nt ---
Date of Service September 04, 2023 Assessment & Plan (1) Acute metabolic encephalopathy: (2) Septic shock: (3) Cardiac arrest: (4) Bacteremia: (5) UTI (urinary tract infection): Plan 57yo M with h/o uncontrolled DM, HTN, HLD, peripheral neuropathy, BPH with LUTS, GERD, gout, stroke with residual left hemiparesis, bicuspid AV s/p mechanical AVR 08/2011 on chronic anticoagulation who presented on 08/22 after [id number] cardiac PEA arrest with ROSC obtained after about 5 to 7 minutes. Intubated in the ED and started on pressors. Found to be febrile up to 40.7. Initial labs with WBC 19.63. Cr 2.70. Elevated AST/ALT, troponin, and lactate. PCT > 100. UA > 50 WBC. UCx with P mirabilis. BCx polymicrobial. CT head negative, CT chest with multifocal pneumonia at the bilateral bases. CTAP with severe bladder wall thickening with Davis present. He was admitted to the ICU and started on broad spectrum abx. TTE limited, normal LV function, AV sclerosis. CXR with left pleural effusion. Thoracentesis deferred due to elevated INR. Extubated 08/24. Noted to have a sacral decubitus ulcer and seen by surgery, bedside debridement was done on 08/25. CXR from 08/24 with bl pleural effusions L>R, left consolidation. ID consulted on 08/27 at which time patient noted to be altered. UA done which had > 50 WBC, UCx P mirabilis. BCx ngtd. CTH negative, CXR without consolidation. MRI with acute infarcts in R frontal and parietal lobes, questionable infarcts in left occipital and cerebellar hemisphere. Repeat TTE negative for vegetations on mitral, tricuspid, or pulmonic valves. Unable to get DEO due to mental status. Course c/b PEA arrest on 08/29 and transferred to ICU, s/p intubation and pressors. CXR with right basilar linear densities favor subsegmental atelectasis. CTAP with moderate- large R sided RP, extraperitoneal, and IM hematomas; obstructing 8mm stone in proximal left ureter causing hydronephrosis. CT chest with RLL densities persist and may be atelectasis and/or PNA, left basilar densities improved. Repeat CTA A/P showed small amount of active bleeding of stable RP hematoma, stable R iliopsoas hematoma. S/p left ureteral stent placement on 08/30. Sacral cx resulted with resistant Pseudomonas. Regarding sacral cultures, from last I saw, I did not think his sacrum was infected and cultures could represent colonization. However, would have wound care re-evaluate the sacral wound and also include image in chart. If there is e/o infection (erythema, purulent drainage, etc), then would change CTX to meropenem. Will avoid use of fluoroquinolone since he has a prolonged QTC. Regrading Aerococcus bacteremia, need to r/o endocarditis in the setting of mechanical AV and multiple cerebral infarcts. Awaiting DEO. Sensitivities for this has returned and is resistant to CTX. He has a PCN allergy unfortunately and cx sensitive to vanc. daptomycin sensitivities cannot be run after they discussed with [place] since there is in no guidance on this. After discussion with our ID pharmacist, it is much safer to use vancomycin in this setting as daptomycin use is uncertain, at least until endocarditis is ruled out He also had CONS on BCX, this is likely contaminant. For Proteus bacteremia/UTI, he is s/p ureteral stent. Will f/u UCx to see if any further adjustments in abx is needed. # Bacteremia 2/2 Aerococcus viridans # Bacteremia and UTI 2/2 P mirabilis in setting of obstructing left ureteral calculus s/p ureteral stent 08/31 # Decubitus ulcer s/p bedside debridement 08/25, cx 08/29 with PsA # Large right RP bleed with extraperitoneal and intramuscular hematomas (including R iliopsoas) # Cardiac arrest (prior to admission and then on 08/29) # Hemorrhagic shock on 08/29 # Multiple infarcts on MRI brain # Aspiration PNA from admission s/p tx # Septic shock on admission resolved # AMRIT - improved # Transaminitis 2/2 shock improved # PCN allergy # QTC 565 - if any signs of sacral infection, please stop CTX and start meropenem 1g IV q8h (avoid fluoroquinolones) - continuing CTX - DEO when stable - UCx sent from OR on 08/30 are NG ID will continue to follow. If questions or concerns, contact Infectious Disease Call Center . Cristina Cartwright MD [facility], Division of Infectious Diseases Admission and Anticipated Discharge Date Admission Date: August 23, 2023 Subjective This patient recommendation is based on a telemedicine consult request which was completed asynchronously through chart review and information provided by the primary physician. The patient was not seen or examined today. The evaluation is consultative in nature and all patient care and treatment decisions can either be accepted or rejected by the patient's primary hospital-based treating physician using their own independent medical judgment for their patient. Time Spent Reviewing Chart: 31+ minutes Results & Data Vital Signs (Past 12 Hours) Vital Signs Temp Pulse Pulse Resp BP Pulse Ox O2 Del Method 09/04/23 10:57 36.6 C 77 18 152/87 H 95 Room Air 09/04/23 08:00 92 H 09/04/23 07:07 36.4 C L 79 20 168/83 H 94 CPAP Laboratory Results Short CBC 09/03/23 09/03/23 09/04/23 Range/Units 15:41 22:53 07:44 WBC 16.79 H (4.8-10.8) K/ul Hgb 9.8 L 9.7 L 9.8 L (14.0-18.0) g/dl Hct 29.4 L 28.9 L (42.0-52.0) % Plt Count (130-400) K/uL 09/04/23 09/04/23 Range/Units 07:44 07:44 WBC (4.8-10.8) K/ul Hgb 9.9 L (14.0-18.0) g/dl Hct 29.9 L 29.5 L (42.0-52.0) % Plt Count 212 (130-400) K/uL BMP 09/04/23 07:44 Sodium 140 Potassium 2.7 L Chloride 100 Carbon Dioxide 36 H BUN 13 Creatinine 0.56 L Glucose 125 H Calcium 7.2 L Medications Administered Current Inpatient Medications Albuterol (Albuterol 0.083% Nebu Soln 3 Ml Vial) 2.5 mg NEB Q6H PRN; Protocol PRN Reason: Shortness Of Breath Or Wheezing Stop: 10/01/23 18:22 Last Admin: 09/01/23 18:58 Dose: 2.5 mg Allopurinol (Allopurinol 100 Mg Tab) 100 mg PO QAM [facility] Stop: 09/27/23 08:59 Last Admin: 09/04/23 08:47 Dose: Not Given Aspirin (Aspirin 81 Mg Ectab) 81 mg PO DAILY [facility] Stop: 09/29/23 08:59 Last Admin: 08/30/23 09:34 Dose: 81 mg Dextrose (Dextrose 50% 50 Ml Syringe) 25 - 50 ml IV UD PRN; Protocol PRN Reason: Hypoglycemia Protocol Stop: 09/22/23 22:59 Last Admin: 08/24/23 21:02 Dose: 25 ml Glucagon (Glucagon For Inj 1 Mg Vial) 1 mg IM UD PRN; Protocol PRN Reason: Hypoglycemia Protocol Stop: 09/22/23 22:59 Glucose (Glucose 40% Gel 15 Gm Tube) 15 - 30 gm PO UD PRN; Protocol PRN Reason: Hypoglycemia Protocol Stop: 09/22/23 22:59 Glucose (Glucose 10 Tab/Tube) 4 - 8 tab PO UD PRN; Protocol PRN Reason: Hypoglycemia Protocol Stop: 09/22/23 22:59 Hydromorphone HCl (Hydromorphone Inj 1 Mg/Ml Syringe) 0.5 mg IV Q2H PRN PRN Reason: Pain Stop: 09/15/23 18:14 Last Admin: 09/04/23 06:03 Dose: 0.5 mg Thiamine HCl 200 mg/ Sodium (Chloride) 52 mls @ 210 mls/hr IV BID [facility] Stop: 09/28/23 10:29 Last Infusion: 09/04/23 09:19 Dose: Infused Ceftriaxone Sodium 2,000 mg/ (Dextrose) 50 mls @ 100 mls/hr IV Q24H [facility] Stop: 09/07/23 15:59 Last Infusion: 09/03/23 17:16 Dose: Infused Vancomycin HCl 1,000 mg/ (Sodium Chloride) 270 mls @ 200 mls/hr IV Q12H [facility] Stop: 09/15/23 12:59 Last Admin: 09/04/23 14:32 Dose: 200 mls/hr Acetaminophen (Ofirmev) 1,000 mg in 100 mls @ 400 mls/hr IV Q8H PRN PRN Reason: Pain or Fever Stop: 09/04/23 18:08 Heparin Sodium/Dextrose (Heparin Sodium/Dextrose) 25,000 units in 500 mls @ 33 mls/hr IV .[id number] [facility]; Protocol Stop: 10/04/23 09:29 Last Admin: 09/04/23 10:40 Dose: 1,650 units/hr, 33 mls/hr Insulin Aspart (Insulin Aspart Per Unit Charge) 0 units SC ACHS [facility] Stop: 09/28/23 00:00 Last Admin: 09/04/23 11:12 Dose: Not Given Insulin Glargine (Lantus Per Unit Charge) 0 units SC BID [facility]; Protocol Stop: 09/25/23 09:14 Last Admin: 09/04/23 08:47 Dose: Not Given Metoprolol Tartrate (Metoprolol Tartrate 25 Mg Tab) 12.5 mg PO BID [facility] Stop: 10/02/23 14:15 Last Admin: 09/04/23 08:47 Dose: Not Given Miscellaneous (Carbohydrates For Hypoglycemia ) 15 - 30 gm PO UD PRN PRN Reason: Hypoglycemia Treatment Stop: 09/22/23 22:59 Miscellaneous Information (Vancomycin Consult Active) 0 each N/A UD PRN PRN Reason: Consult Stop: 10/01/23 12:20 Ondansetron HCl (Ondansetron Inj 2 Mg/Ml 2 Ml Vial) 4 mg IV Q6H PRN PRN Reason: NAUSEA/VOMITING Stop: 09/22/23 22:11 Pantoprazole Sodium (Pantoprazole 40 Mg Tab) 40 mg PO DAILY [facility] Stop: 10/02/23 09:59 Last Admin: 09/04/23 08:47 Dose: Not Given
--- NOTE | 2023-09-04 15:56 | Palliative Care Consultation ---
Date of Consultation September 04, 2023 Assessment & Plan (1) Dyspnea and respiratory abnormalities: (2) Weakness generalized: (3) Advanced care planning/counseling discussion: I met with Mr Graham face to face for 20min He is certanly more alert than previously noted in the chart. He is having a day of more alertness. He was able to tell me his heart stopped x2, he had a bleed and we just restarted blood thinner but it is a risk for him/he may rebleed. He said he knew it might be a long shot and if things get worse he knows it might mean he will - he would want us to keep him comfortable if things are getting worse. He is reporting a lot of pain at sacral wound, will note wound care and Santyl was applied just prior to my visit and this is the likely trigger. PRN Rodolfoaudid on file, pt agreeable. I tried calling Mrs Garham/unable to connect. Will try tomorrow. (4) Palliative care by specialist: Met with pt/family. Provided overview of Palliative Medicine, a subspecialty that provides specialized medical care for people living with a serious illness by offering a focus on quality of life through reduction of symptom burden/more control over their illness, for both the patient and family. Plan Pain mgt for sacral wound AC restarted, monitoring underway He is alert today and able to describe risk of restarting AC ACP as noted above Thank you for allowing us to participate in the ongoing care of this patient. Please don't hesitate to call or page with any additional concerns. Dr. Catherine Prakash DNP Director, Palliative Care History of Present Illness Reason for Consultation: [facility] Attending Physician: Elizabet West MD History of Present Illness OOH cardiac arrest 08/22, VDRF extubated 08/24 then re-arrested 08/29 d/t bleed +Acute metabolic encephalopathy +Afib +waxing and waning attention/alerness +bacteremia +Acute CVA: MRI Brain 08/27 revealed found multiple acute strokes-2 subcentimeter in right frontal and parietal lobes, 2 additional questionable punctate acute infarcts in left occipital and left cerebellar hemisphere He was only off of anticoagulation for 1-2 days at the most during this hospitalization after his heparin drip was discontinued for sacral wound bleeding-heparin drip was resumed but due to compatibility issues and poor IV access, was switched to Lovenox SQ 1 mg/kg twice daily. Seems less likely to be cardioembolic from clot, however could be septic emboli from endocarditis Mr. Graham is seen at bedside. No family is present Nursing advised has been calling but unable to visit today; pt and had a lengthy phone call earlier today He is awake and alert for me voice is soft but able to answer me through the visit right weakness noted sacral wound, pt c/o pain at site and in lower back Allergies Allergy/AdvReac Type Severity Reaction Status Date / Time bee venom protein (honey bee) Allergy Unknown Verified 08/23/23 20:23 Iodinated Contrast Media Allergy Hives Verified 08/23/23 20:23 Penicillins Allergy Hives Verified 08/23/23 20:23 Home Medications Medication Instructions Recorded Confirmed Type allopurinol 100 mg tablet 100 mg PO QAM 08/23/23 08/23/23 History amlodipine 10 mg tablet 10 mg PO QAM 08/23/23 08/23/23 History aspirin 81 mg chewable tablet 81 mg PO DAILY 08/23/23 08/23/23 History (Aspirin Childrens) atorvastatin 10 mg tablet 10 mg PO HS 08/23/23 08/23/23 History carvedilol 25 mg tablet 25 mg PO BID 08/23/23 08/23/23 History clonidine HCl 0.2 mg tablet 0.2 mg PO TID 08/23/23 08/23/23 History famotidine 40 mg tablet 40 mg PO DAILYBB 08/23/23 08/23/23 History furosemide 40 mg tablet 20 mg PO Q OTHER DAY 08/23/23 08/23/23 History gabapentin 300 mg capsule 300 mg PO TID 08/23/23 08/23/23 History montelukast 10 mg tablet 10 mg PO DAILY 08/23/23 08/23/23 History pregabalin 150 mg capsule 150 mg PO BID 08/23/23 08/23/23 History tamsulosin 0.4 mg capsule 0.4 mg PO QAM 08/23/23 08/23/23 History warfarin 1 mg tablet 1 mg PO DAILY 08/23/23 08/23/23 History warfarin 5 mg tablet 5 mg PO DAILY 08/23/23 08/23/23 History oxycodone 15 mg tablet 15 mg PO Q4 PRN Severe Pain (Scale 08/28/23 08/28/23 History Score 7-10) Patient History Medical History (Updated 09/04/23 @ 16:02 by Catherine Prakash DNP) Palliative care by specialist Advanced care planning/counseling discussion Weakness generalized Dyspnea and respiratory abnormalities Acute CVA (cerebrovascular accident) GERD (gastroesophageal reflux disease) Hyperlipidemia Peripheral neuropathy Gout Hypertension BPH w urinary obs/LUTS Chronic anticoagulation History of stroke Social History Smoking Status: Never smoker Tobacco Type: Smokeless Tobacco (Dip or Chew) Second Hand Exposure: No; Do You Dip or Chew Tobacco: Yes; Tobacco Cessation Education Requested by Patient: No Hx Alcohol Use: No Hx Substance Use: No Preferred Language: Azeri Communication Ability: Unable Supervisor Ticket Sales Required: No Beliefs That Will Affect Care: None Current Living Situation: Spouse Other Information That Helps Us Care for You: No Feels Safe at Home: Yes Safety Concerns: Feels Safe At This Time Assistive Devices: Mechanical Lift and Wheelchair Review of Systems Review of Systems: All systems reviewed & are unremarkable except as noted in Subjective Physical Exam Physical Exam: Bitemp wasting chronically ill appearing AAOx3 PERRLA, EOMIs +bhavana voce neck supple, no stridor Sl inc resp effort with use of accessory muscles noted, diminished breath sounds, no wheezing S1 S2, RRR Abdomen soft, NTP, BS+ BE +1 edema Cooperative with exam Results & Data Vital Signs (Past 12 Hours) Vital Signs Temp Pulse Pulse Resp BP Pulse Ox O2 Del Method 09/04/23 15:23 36.5 C 84 24 135/105 H 95 Room Air 09/04/23 10:57 36.6 C 77 18 152/87 H 95 Room Air 09/04/23 08:00 92 H 09/04/23 07:07 36.4 C L 79 20 168/83 H 94 CPAP Laboratory Results Abnormal lab results 09/03/23 09/03/23 09/03/23 Range/Units 15:41 16:17 16:43 WBC (4.8-10.8) K/ul RBC (4.70-6.10) M/uL Hgb 9.8 L (14.0-18.0) g/dl Hct 29.4 L (42.0-52.0) % RDW Std Deviation (36.4-46.3) fL RDW Coeff of Malika (11.5-14.5) % Potassium (3.5-5.1) mmol/L Carbon Dioxide (21-32) mmol/L Creatinine (0.6-1.4) mg/dl BUN/Creatinine Ratio (10-20) Glucose (70-99(Fasting)) mg/dl POC Glucose 222 H 215 H (70-99) mg/dl Calcium (8.6-10.3) mg/dl 09/03/23 09/03/23 09/04/23 Range/Units 20:00 22:53 07:09 WBC (4.8-10.8) K/ul RBC (4.70-6.10) M/uL Hgb 9.7 L (14.0-18.0) g/dl Hct 28.9 L (42.0-52.0) % RDW Std Deviation (36.4-46.3) fL RDW Coeff of Malika (11.5-14.5) % Potassium (3.5-5.1) mmol/L Carbon Dioxide (21-32) mmol/L Creatinine (0.6-1.4) mg/dl BUN/Creatinine Ratio (10-20) Glucose (70-99(Fasting)) mg/dl POC Glucose 187 H 118 H (70-99) mg/dl Calcium (8.6-10.3) mg/dl 09/04/23 09/04/23 09/04/23 Range/Units 07:44 07:44 07:44 WBC 16.79 H (4.8-10.8) K/ul RBC 3.52 L (4.70-6.10) M/uL Hgb 9.8 L 9.9 L (14.0-18.0) g/dl Hct 29.9 L 29.5 L (42.0-52.0) % RDW Std Deviation 50.9 H (36.4-46.3) fL RDW Coeff of Malika 18.6 H (11.5-14.5) % Potassium 2.7 L (3.5-5.1) mmol/L Carbon Dioxide 36 H (21-32) mmol/L Creatinine 0.56 L (0.6-1.4) mg/dl BUN/Creatinine Ratio 23.2 H (10-20) Glucose 125 H (70-99(Fasting)) mg/dl POC Glucose (70-99) mg/dl Calcium 7.2 L (8.6-10.3) mg/dl 09/04/23 Range/Units 11:00 WBC (4.8-10.8) K/ul RBC (4.70-6.10) M/uL Hgb (14.0-18.0) g/dl Hct (42.0-52.0) % RDW Std Deviation (36.4-46.3) fL RDW Coeff of Malika (11.5-14.5) % Potassium (3.5-5.1) mmol/L Carbon Dioxide (21-32) mmol/L Creatinine (0.6-1.4) mg/dl BUN/Creatinine Ratio (10-20) Glucose (70-99(Fasting)) mg/dl POC Glucose 125 H (70-99) mg/dl Calcium (8.6-10.3) mg/dl Diagnostic Findings Chest X-Ray 08/23/23 18:42 XR chest 1V portable HISTORY: 57 years-old Male Sepsis acute sepsis COMPARISON: Chest CT of same day TECHNIQUE: AP view of the chest FINDINGS: Endotracheal tube overlies the midline, 4.3 cm superior to the danette. Enteric tube courses into the stomach with distal tip outside the [id number]. Cardiomegaly with median sternotomy and prosthetic aortic valve. Pulmonary vascular congestion. Mild dependent bibasilar atelectasis. Bones appear grossly intact. IMPRESSION: 1. Cardiomegaly with pulmonary vascular congestion. 2. Endotracheal and enteric tube placement as above. ACT 112: Negative or not required by law. The above report was generated using voice recognition software. It may contain grammatical, syntax or spelling errors. Electronically signed by: Eugene Navas M.D. 08/24/2023 6:[address] 08/23/23 19:07 Exam(s): CT HEAD Without Contrast EXAM: CT Head Without Intravenous Contrast CLINICAL HISTORY: Reason for exam: AMS. TECHNIQUE: Axial computed tomography images of the head/brain without intravenous contrast. CTDI is 37.12 mGy and DLP is 624.41 mGy-cm. Automated exposure control was utilized for the study. A dose lowering technique was utilized adhering to the principles of ALARA. COMPARISON: No relevant prior studies available. FINDINGS: No acute intracranial hemorrhage. No midline shift or mass effect. The territorial mota-white matter differentiation is maintained throughout. Age-related cerebral volume loss. Periventricular and subcortical white matter hypoattenuation, consistent with chronic microangiopathy. The visualized orbits appear grossly unremarkable. The calvarium is intact. The visualized paranasal sinuses and mastoid air cells are grossly clear. IMPRESSION: No acute intracranial hemorrhage, midline shift, or mass effect. Electronically signed by: Ayad Mari MD 08/23/23 19:55 PM Abdomen/Pelvis CT 08/23/23 19:09 Exam(s): CT ABDOMEN + PELVIS Without Contrast EXAM: CT Abdomen and Pelvis Without Intravenous Contrast CLINICAL HISTORY: Reason for exam: AMS. TECHNIQUE: Axial computed tomography images of the abdomen and pelvis without intravenous contrast. CTDI [place] 32.8 [place] [address].529 mGy-cm. Automated exposure control was utilized for the study. A dose lowering technique was utilized adhering to the principles of ALARA. COMPARISON: No relevant prior studies available. FINDINGS: Lung bases: Unremarkable. No mass. No consolidation. ABDOMEN: Liver: Unremarkable. Gallbladder and bile ducts: Cholecystectomy. No ductal dilation. Pancreas: Unremarkable. No ductal dilation. Spleen: Unremarkable. No splenomegaly. Adrenals: Unremarkable. No mass. Kidneys and ureters: Nonobstructing stone in the LEFT renal pelvis measures 7 mm. Obstructing stone in the LEFT proximal ureter measures 6 mm. Mild hydronephrosis of the LEFT kidney impression. Stomach and bowel: Moderate fecal retention, correlate for constipation. No bowel obstruction. No free air. No mucosal thickening. PELVIS: Appendix: No findings to suggest acute appendicitis. Bladder: Severe wall thickening of the urinary bladder which measures up to 1.8 cm in thickness. Indwelling Davis catheter. Correlate for UTI. No stones. Reproductive: Unremarkable as visualized. ABDOMEN and PELVIS: Intraperitoneal space: See above. Bones/joints: No acute fracture. No dislocation. Soft tissues: Unremarkable. Vasculature: Vascular calcifications. Vascular calcifications are present. No abdominal aortic aneurysm. Lymph nodes: Unremarkable. No enlarged lymph nodes. Tubes, lines and devices: Feeding tube terminates in the stomach. IMPRESSION: 1. Severe wall thickening of the urinary bladder which measures up to 1. 8 cm in thickness. Indwelling Davis catheter. Correlate for UTI. 2. Feeding tube terminates in the stomach. 3. Cholecystectomy. 4. Moderate fecal retention, correlate for constipation. No bowel obstruction. No free air. Electronically signed by: Ayad Mari MD 08/23/23 19:[address] 08/23/23 19:09 Exam(s): CT CHEST Without Contrast EXAM: CT Chest Without Intravenous Contrast CLINICAL HISTORY: Reason for exam: AMS. TECHNIQUE: Axial computed tomography images of the chest without intravenous contrast. CTDI is 36.96 mGy and DLP is 1174.99 mGy-cm. Automated exposure control was utilized for the study. A dose lowering technique was utilized adhering to the principles of ALARA. COMPARISON: No relevant prior studies available. FINDINGS: Lungs: Airspace consolidations at the lung bases, consistent with multilobar pneumonia. No mass. Pleural space: Unremarkable. No pneumothorax. No significant effusion. Heart: Unremarkable. No cardiomegaly. No significant pericardial effusion. No significant coronary artery calcifications. Bones/joints: Sternotomy wires. No acute fracture. No dislocation. Soft tissues: Unremarkable. Vasculature: Unremarkable. No thoracic aortic aneurysm. Lymph nodes: Unremarkable. No enlarged lymph nodes. Gallbladder and bile ducts: Cholecystectomy. Tubes, lines and devices: Endotracheal tube terminates in the trachea. Feeding tube terminate in the stomach. IMPRESSION: 1. Airspace consolidations at the lung bases, consistent with multilobar pneumonia. 2. Endotracheal tube terminates in the trachea. 3. Feeding tube terminate in the stomach. Electronically signed by: Ayad Mari MD 08/23/23 19:56 PM Chest X-Ray 08/24/23 05:00 XR chest 1V portable CLINICAL HISTORY: eval lung delcid, tubes/lines while intubated COMPARISON STUDY: Chest radiograph and CT August 22, 2020. FINDINGS: The tip of the endotracheal tube is 4.4 cm above the danette. Tip of nasogastric tube is within the body of the stomach. Low lung volumes are again noted. There is a prosthetic aortic valve and median sternotomy wires. No pneumothorax or pleural effusion is present. Bibasilar opacities are greater on the left. These have slightly increased. There is pulmonary vascular congestion with possible mild pulmonary edema. IMPRESSION: 1. Satisfactory positioning of the endotracheal tube. 2. Increase in bibasilar opacities, greater on the left. The findings favor pneumonia or aspiration pneumonitis. 3. Cardiomegaly. Pulmonary vascular congestion with possible mild pulmonary edema. ACT 112: Negative or not required by law. Electronically signed by: Blaise Mckeon M.D. 08/24/2023 6:49 AM Chest X-Ray 08/25/23 05:00 SINGLE VIEW CHEST CLINICAL HISTORY: Respiratory failure. FINDINGS: An AP, portable, semierect chest radiograph is compared to study dated 08/24/2023 and correlated with chest CT dated 08/23/2023. The examination is degraded by portable technique and patient rotation. Endotracheal and enteric tubes are unchanged in position. The patient is status post midline sternotomy and cardiac valve surgery. The heart is enlarged. There is pulmonary vascular congestion. There are left larger than right pleural effusions with left basilar consolidation. There is apparent increase in opacification of the left upper lung. No pneumothorax is seen. The skeletal structures are osteopenic. The bony thorax is grossly intact. IMPRESSION: 1. Stable lines and tubes. 2. Cardiomegaly with evidence of congestive failure. 3. Left larger than right pleural effusions with left basilar consolidation. 4. Apparent increasing opacities within the left upper lung may be related to patient rotation. Attention at follow-up is recommended.. ACT 112: Negative or not required by law. Electronically signed by: Efrain Quach M.D. 08/25/2023 9:02 AM Chest X-Ray 08/28/23 06:24 XR chest 1V portable HISTORY: 57 years-old Male Increased work of breathing acute shortness of breath COMPARISON: 08/25/2023 TECHNIQUE: AP view of the chest FINDINGS: Cardiac silhouette is enlarged. Median sternotomy with cardiac valvular prosthesis. Interval removal of the endotracheal and enteric tubes. Pulmonary vascular congestion. No pneumothorax or large pleural effusion. Mild linear left basilar atelectasis versus scarring. Improved aeration of the lungs. IMPRESSION: 1. Cardiomegaly with pulmonary vascular congestion. 2. Interval extubation with removal of the enteric tube. 3. Improved aeration of the lungs with mild persistent left basilar atelectasis/scarring. ACT 112: Negative or not required by law. The above report was generated using voice recognition software. It may contain grammatical, syntax or spelling errors. Electronically signed by: Eugene Navas M.D. 08/28/2023 7:[address] 08/28/23 06:28 CT head/brain wo con CLINICAL HISTORY: 57 years-old Male with Right sided weakness. Acute stroke like symptoms TECHNIQUE: Multiple axial CT images of the head were obtained without contrast. A dose lowering technique was utilized adhering to the principles of ALARA. CT DOSE: 625.8 mGy.cm COMPARISON: 08/23/2023 FINDINGS: No acute intracranial hemorrhage, midline shift, intracranial mass, hydrocephalus, territorial ischemia or abnormal extra-axial collection. Involutional changes with chronic microvascular ischemic disease. The calvarium is intact. There is atherosclerosis with prominence and tortuosity of the left vertebral and basilar arteries. Prominent atherosclerosis of the distal internal carotid arteries. The paranasal sinuses, mastoid air cells, and middle ear cavities are clear. IMPRESSION: No acute intracranial abnormality identified. ACT 112: Negative or not required by law. The above report was generated using voice recognition software. It may contain grammatical, syntax or spelling errors. Electronically signed by: Eugene Navas M.D. 08/28/2023 9:33 AM Brain MRI 08/28/23 11:41 Brain MRI WITH AND WITHOUT CONTRAST HISTORY: mental status changes,post-cardiac arrest TECHNIQUE: Multiplanar multisequence MRI of the brain was performed both before and after the intravenous administration of contrast. COMPARISON STUDY: Head CT 08/28/2023. FINDINGS: There is an 8 mm focus of restricted diffusion within the right frontal lobe on axial image 15. There is additional punctate focus of restricted diffusion within the right parietal periventricular white matter on image 16. These are consistent with small acute infarcts. There may be 2 additional punctate foci of restricted diffusion within the left posterior occipital lobe on image 11 and within the left cerebellar hemisphere in image 6. These could represent an additional punctate acute infarcts versus artifact. The midline structures are intact. The ventricles and sulci demonstrate mild age-related involutional changes. Periventricular matter T2 hyperintensity is nonspecific but favors mild microvascular ischemic change. Trace fluid level within the left sphenoid sinus. Trace mastoid effusions. The major vascular flow-voids at the skull base are maintained. There are multiple old punctate lacunar infarcts seen within the cerebellar hemispheres. There is no mass, hematoma, or midline shift. The orbits are unremarkable. Postcontrast sequences show no areas of abnormal enhancement. Susceptibility artifact noted within the right thalamus consistent with hemosiderin in the setting of an old hemorrhagic infarct. IMPRESSION: 1. There are 2 subcentimeter acute infarcts within the right frontal and parietal lobes as described above. 2. There are 2 additional questionable punctate acute infarcts within the left occipital lobe and left cerebellar hemisphere. 3. Old additional infarcts within the right thalamus and cerebellar hemispheres. 4. Atrophy and microvascular ischemic changes. 5. Trace fluid level within the left sphenoid sinus. ACT 112: Negative or not required by law. Electronically signed by: Ulises Grant M.D. 08/28/2023 4:39 PM Carotid Doppler Study 08/28/23 16:50 BILATERAL CAROTID DOPPLER STUDY HISTORY: Multifocal strokes. COMPARISON: None. TECHNIQUE: Real-time, grayscale, and color Doppler sonography of the carotid arteries was performed. Imaging reviewed in the transverse and longitudinal planes. All measurements were calculated based on NASCET criteria. FINDINGS: Antegrade flow is seen in the bilateral vertebral arteries. Mild calcified plaque within the bilateral carotid bifurcations. The peak systolic velocity within the right ICA is 32 cm/s. The right systolic r atio is 0.5. The peak systolic velocity within the left ICA is 38 cm/s. The left systolic ratio is 0.5. IMPRESSION: No hemodynamically significant stenosis seen within the carotid arteries. ACT 112: Negative or not required by law. Electronically signed by: Ulises Grant M.D. 08/29/2023 6:54 AM Videofluoroscopic Swallow 08/29/23 14:15 MODIFIED BARIUM SWALLOW CLINICAL HISTORY: assess for aspiration COMPARISON STUDY: None. FLUOROSCOPY TIME: 1.27 minutes. Ka, r: 18.2 mGy. TECHNIQUE: A modified barium swallow was performed in conjunction with Speech Pathology. The patient ingested varying consistencies of barium containing material. Video fluoroscopy was performed. FINDINGS: Premature spillage with delayed initiation of swallowing mechanism was noted with thin liquids by spoon. This resulted in tracheal aspiration. There is also tracheal aspiration with swallows of thin liquids by cup. There was no aspiration with nectar thick liquids or pudding consistencies. IMPRESSION: 1. Tracheal aspiration with thin liquids, as described above. Premature spillage with delayed initiation of the swallowing mechanism. 2. No aspiration with nectar thick liquids or pudding consistencies. 3. Full recommendations by Speech pathology to follow. ACT 112: Negative or not required by law. Electronically signed by: Blaise Mckeon M.D. 08/29/2023 5:07 PM Chest X-Ray 08/30/23 14:20 XR chest 1V portable HISTORY: Respiratory failure/arrest. COMPARISON: Chest 08/28/2023. FINDINGS: Endotracheal tube terminates approximately 3.4 cm from the danette. The nasogastric tube terminates in the proximal stomach. There are low lung volumes. No pneumothorax. No pleural effusions. Small right basilar linear densities favor subsegmental atelectasis. Prior cholecystectomy. No evidence for pulmonary edema. No acute fractures. The heart remains mildly enlarged. Poststernotomy changes and a cardiac valve prosthesis. IMPRESSION: 1. Satisfactory support line placement. 2. Right basilar linear densities favor subsegmental atelectasis. 3. Stable cardiomegaly. ACT 112: Negative or not required by law. Electronically signed by: Ulises Grant M.D. 08/30/2023 4:00 PM Abdomen/Pelvis CT 08/30/23 16:[address] WITHOUT CONTRAST CT DOSE: HISTORY: Hypotension. r/o bleed TECHNIQUE: Multiaxial CT images of the abdomen and pelvis were performed without contrast. A dose lowering technique was utilized adhering to the principles of ALARA. COMPARISON STUDY: Abdomen and pelvis CT 08/23/2023. FINDINGS: The lung bases will be reported on the same day chest CT. No pneumoperitoneum. No pneumatosis. Bilateral L5 pars defects are noted. Bilateral anterior rib fractures are better appreciated on the same day chest CT. No additional fractures identified. Nasogastric tube terminates in the fundus of the stomach. There is trace perihepatic ascites. Prior cholecystectomy. There is a small gallbladder remnant identified containing a few small gallstones. This remains unchanged. The unenhanced pancreas, spleen, and adrenal glands are unremarkable. Left-sided nephrolithiasis again noted. There is mild left hydronephrosis secondary to an obstructing 8 mm stone within the proximal left ureter on image 245. This remains unchanged. There is an additional 1 cm nonobstructing stone within the left renal pelvis, unchanged. No right-sided hydronephrosis. The bladder is decompressed by a Davis catheter. A left femoral vein catheter terminates in the left external iliac vein. Moderate fecal retention. No bowel wall thickening or obstruction. Normal appendix. Moderate body wall edema is noted. There is been interval of a moderate to large right retroperitoneal/extraperitoneal hematoma extending into the pelvis. There is associated 5.4 cm intramuscular hematoma within the right psoas muscle. There is a small amount of hemorrhage surrounding the decompressed bladder. There is also a small amount of intramuscular hemorrhage within the right lateral abdominal wall. The dominant retroperitoneal hematoma adjacent to the right iliopsoas muscle measures 15 x 8 x 5 cm. A small amount of the retroperitoneal hemorrhage overlaps the abdominal aorta and IVC. IMPRESSION: 1. Moderate to large right-sided retroperitoneal, extraperitoneal, and intramuscular hematomas as described above. 2. Satisfactory support line placement. 3. There is an obstructing 8 mm stone within the proximal left ureter resulting in a left hydronephrosis. This remains unchanged. 4. Evidence for prior cholecystectomy with a few small gallstones identified within the gallbladder remnant. This remains unchanged. 5. Additional findings as described above.. ACT 112: Negative or not required by law. Electronically signed by: Ulises Grant M.D. 08/30/2023 6:[address] 08/30/23 16:09 CT chest diagnostic wo con CT DOSE: 1674.8 mGy.cm HISTORY: Hypoxia TECHNIQUE: Multiaxial CT images of the chest were performed without contrast. A dose lowering technique was utilized adhering to the principles of ALARA. COMPARISON: Chest CT 08/23/2023. FINDINGS: The nasogastric tube terminates in the fundus of the stomach. The endotracheal tube terminates approximately 2 cm from the danette. Small amount of mucoid material seen within the distal trachea. Remaining central airways are patent. Patchy airspace opacities within the left lung base have improved. Patchy and linear airspace opacities within the right lower lobe posteriorly favor cysts. This could represent atelectasis or a pneumonia. No pneumothorax. Trace bilateral pleural effusions. No evidence for pulmonary edema. A small cluster of tree-in-bud nodular opacities again noted within the lingula. This favors a mild chronic bronchiolitis. A stable 3 mm nodule within the left lower lobe on image 97. A few additional scattered punctate calcified granulomas are seen within the lungs. The abdominal structures will be reported on the same day abdomen and pelvis CT. Nondisplaced right anterior second through acute rib fractures. There are poststernotomy changes. There are are also nondisplaced left anterior second through fourth rib fractures. These are present on the 08/23/[address] Normal thyroid gland. No mediastinal hematoma or lymphadenopathy. The heart is borderline enlarged. Aortic valve prosthesis is noted. Calcified plaque within the normal caliber abdominal aorta. Mild body wall edema. Skin thickening seen throughout the back. No hilar lymphadenopathy. No pericardial effusion. IMPRESSION: 1. Satisfactory support line placement. 2. Nondisplaced acute bilateral anterior rib fractures. These were present on the 08/23/2023 chest CTA. 3. No pneumothorax. 4. Right lower lobe densities persist and may represent atelectasis and/or pneumonia. 5. Left basilar densities have improved. 6. The abdominal structures will be reported separately. 7. Additional findings as described above. ACT 112: Negative or not required by law. Electronically signed by: Ulises Grant M.D. 08/30/2023 6:00 PM Abdomen/Pelvis CTA 08/30/23 18:55 CR Exam(s): CTA ABDOMEN + PELVIS With Contrast IV Amt: 118 ml optiray 320 EXAM: CT Angiography Abdomen and Pelvis With Intravenous Contrast CLINICAL HISTORY: Concern for active bleed. TECHNIQUE: Axial computed tomographic angiography images of the abdomen and pelvis with intravenous contrast. CTDI is 81.21 mGy and DLP is 2131.52 mGy-cm. Automated exposure control was utilized for the study. A dose lowering technique was utilized adhering to the principles of ALARA. MIP reconstructed images were created and reviewed. CONTRAST: Patient received 118 ml optiray 320 of IV contrast COMPARISON: CT abdomen and pelvis 08/30/2023 FINDINGS: VASCULATURE: Aorta: Mild atherosclerosis of the aorta is noted. Mild atherosclerosis. No abdominal aortic aneurysm. No dissection. Celiac trunk and mesenteric arteries: No acute findings. No occlusion or significant stenosis. Renal arteries: There is atherosclerosis of the origin of both renal arteries without significant stenosis. There is an accessory right renal artery. Iliac arteries: There is atherosclerosis of the bilateral common, internal and external iliac arteries without significant stenosis. Lung bases: Unremarkable. No mass. No consolidation. ABDOMEN: Liver: Unremarkable. No mass. Gallbladder and bile ducts: Cholecystectomy. Pancreas: Unremarkable. No ductal dilation. No mass. Spleen: Unremarkable. No splenomegaly. Adrenals: Unremarkable. No mass. Kidneys and ureters: Unremarkable. No hydronephrosis. No solid mass. Stomach and bowel: Unremarkable. No obstruction. No mucosal thickening. PELVIS: Appendix: No findings to suggest acute appendicitis. Bladder: A Davis catheter is present. Reproductive: Unremarkable as visualized. ABDOMEN and PELVIS: Intraperitoneal space: Unremarkable. No significant fluid collection. No free air. Retroperitoneal space: There is a small amount of active bleeding of the stable right retroperitoneal hematoma. A approximately 6 x 4 x 10 cm right iliopsoas hematoma is also present, and this hematoma however does not demonstrate active bleeding. Bones/joints: There are degenerative changes of the spine. No acute fracture. Soft tissues: Marked nonspecific body wall edema. Small bilateral fat-containing inguinal hernias. Lymph nodes: Unremarkable. No enlarged lymph nodes. IMPRESSION: 1. There is a small amount of active bleeding of the stable right retroperitoneal hematoma. 2. A approximately 6 x 4 x 10 cm right iliopsoas hematoma is also present, and this hematoma however does not demonstrate active bleeding. 3. Marked body wall edema. Communications: Call Doctor Above results Electronically signed by: [place]ia Hanson MD 08/30/23 20:08 PM Retrograde Pyelogram 08/31/23 00:00 FL retrograde includes kub CLINICAL HISTORY: LEFT STENT PLACEMENT COMPARISON STUDY: None. FLUOROSCOPY TIME: 10 seconds FLUOROSCOPY IMAGES: 4 Exposure dose: Not obtained. FINDINGS: Retrograde opacification of the left renal collecting system followed by placement of a left ureteral stent. Only the proximal portion of the stent is identified and appears in good position. IMPRESSION: Fluoroscopic assistance as above. ACT 112: Negative or not required by law. Electronically signed by: Ulises Grant M.D. 08/31/2023 4:32 PM Chest X-Ray 09/01/23 05:30 XR chest 1V portable HISTORY: Respiratory failure. evaluate lung delcid/tubes/lines while intubated COMPARISON: Chest 08/30/2023. FINDINGS: Endotracheal tube terminates 3.2 cm from the danette. Nasogastric tube terminates below the diaphragm. Poststernotomy changes and a cardiac valve prosthesis are noted. No pneumothorax. No pleural effusions. Bibasilar densities have slightly improved. The heart remains enlarged. No evidence for pulmonary edema. The patient's bilateral rib fractures are better appreciated on the recent chest CTA. IMPRESSION: 1. Satisfactory support line placement. 2. Patchy bibasilar densities have slightly improved. ACT 112: Negative or not required by law. Electronically signed by: Ulises Grant M.D. 09/01/2023 7:07 AM PG Care Time/CCT Total # of Minutes Spent Total Time Spent with Patient: Total time spent is greater than 50% in coordination of care (as documented) at patient's floor/unit and/or counseling patient: I spent 80 minutes overall addressing this case: 15 min in medical data review/discussion with referring provider(s) and/or preparation for the visit 20 min in direct interaction with the patient/exam 20 min in Advance Care Planning/Goals of Care discussions as detailed above in note (must be >16min) 10 min in subsequent review and synthesis of assessment and plan 15 min communicating with other providers regarding the patient's case: Advanced Care Planning 20558 Advanced Care Planning 30 [place] [address] IN/OBS CONSULT LVL 4,60M (25 - SIGNIFICANT, SEPARATELY IDENTIFIABLE ) Patient Type New Medical Decision Making High Complexity Diagnoses Dyspnea and respiratory abnormalities R06.00; R06.89 Weakness generalized R53.1 Advanced care planning/counseling discussion Z71.89 Palliative care by specialist Z51.5 Additional Codes Advanced Care Planning - 53161 Advanced Care Planning 30 Min: 43806 Advanced Care Planning 30 Min ([id number])
[2023-09-04 17:13] LABS: Hematocrit (blood only) 29.9 % (42.0-52.0)
[2023-09-04 17:17] LABS: ANTI-Xa, UFH(UnfractionatedHep 0.69 IU/ml (0.3-0.7)
[2023-09-04 23:48] LABS: Hematocrit (blood only) 30.1 % (42.0-52.0); Hemoglobin 10.3 g/dl (14.0-18.0)
[2023-09-05 02:30] LABS: Basophils # (auto) 0.02 K/uL (0.00-0.20); Basophils % (auto) 0.1 %; Eosinophils # (auto) 0.06 K/uL (0.00-0.50); Eosinophils % (auto) 0.4 %; Hematocrit (blood only) 31.7 % (42.0-52.0); Hemoglobin 10.6 g/dl (14.0-18.0); Immature Granulocytes # (auto) 0.42 K/uL (0.01-0.20); Immature Granulocytes % (auto) 2.6 %; Lymphocytes # (auto) 1.76 K/uL (1.20-3.40); Lymphocytes % (auto) 10.9 %; Mean Corpuscular Hemoglobin 28.1 pg (25.0-34.0); Mean Corpuscular Hgb Conc 33.4 g/dL (32.0-36.0); Mean Corpuscular Volume 84.1 fL (80.0-100.0); Mean Platelet Volume 9.8 fL (9.4-12.4); Monocytes # (auto) 1.77 K/uL (0.11-0.59); Neutrophils # (auto) 12.09 K/uL (1.40-6.50); Nucleated RBC # (auto) 0.02 K/uL (0.00-0.12); Nucleated RBC % (auto) 0.1 %; Platelet Count 219 K/uL (130-400); RDW Coefficient of Variation 18.2 % (11.5-14.5); RDW Standard Deviation 51.6 fL (36.4-46.3); Red Blood Count 3.77 M/uL (4.70-6.10); White Blood Count 16.12 K/ul (4.8-10.8)
[2023-09-05 02:44] LABS: Albumin Globulin Ratio 0.9 (0.9-2); Albumin Level 2.8 gm/dl (3.4-5.0); BUN Creatinine Ratio 20.4 (10-20); Bilirubin,Total 1.4 mg/dl (0.2-1.0); Calcium 7.5 mg/dl (8.6-10.3); Creatinine Clr Calc Pharmacy 190.4 ml/min; Est GFR (African American) 134.1 ml/min; Est GFR (Non-African American) 115.7 ml/min; Magnesium 1.4 mg/dl (1.7-2.4); Potassium 2.7 mmol/L (3.5-5.1); Total Protein 5.8 gm/dl (6.0-8.3)
[2023-09-05 02:50] LABS: Troponin I High Sensitivity 23.1 pg/ml (0-20)
--- NOTE | 2023-09-05 02:56 | Communication Note ---
Date of Service: September 05, 2023 Notified by nursing of complaint of chest pain. Evaluated pt at bedside. No acute distress. Vital signs stable. Notes pain across upper chest both left and right sided. Denies dyspnea. No increased oxygen requirement. Had pain like this earlier in the day that resolved and now came back. Repeat EKG with NSR, RBBB- unchanged from prior. Repeat labs show stable hgb= 10.6. Leukocytosis= 16.12, also stable. K=2.7; will [id number] 10meq x4. Mg= 1.4; will replete x1g. Repeat qAM. Trop= 23.1, downtrending from 30.5 on 08/29.
[2023-09-05] MEDS: MAGNESIUM SULFATE / D5W 1 GM/100 ML BAG IV ONE (04:02)
[2023-09-05] MEDS: POTASSIUM CHLORIDE / WTR 10 MEQ/100 ML PLCT IV SCH ×2 (04:02→09:37)
[2023-09-05 08:27] LABS: Hemoglobin 10.9 g/dl (14.0-18.0); Mean Corpuscular Hemoglobin 28.4 pg (25.0-34.0); Mean Corpuscular Hgb Conc 34.1 g/dL (32.0-36.0); Mean Corpuscular Volume 83.3 fL (80.0-100.0); Mean Platelet Volume 9.8 fL (9.4-12.4); Platelet Count 217 K/uL (130-400); RDW Coefficient of Variation 18.1 % (11.5-14.5); RDW Standard Deviation 50.4 fL (36.4-46.3); Red Blood Count 3.84 M/uL (4.70-6.10); White Blood Count 14.98 K/ul (4.8-10.8)
[2023-09-05 08:47] LABS: ANTI-Xa, UFH(UnfractionatedHep 0.63 IU/ml (0.3-0.7)
[2023-09-05] MEDS: POTASSIUM CHLORIDE CRTAB 20 MEQ TABCR PO STA (08:49)
[2023-09-05] MEDS: VANCOMYCIN LEVEL ONE (11:41)
--- NOTE | 2023-09-05 12:14 | Pharmacy Report ---
Pharmacy PK ABX Note - Date of Service September 05, 2023 - Assessment and Plan Assessment 09/04: * Day #5 of resumed vancomycin therapy. Remains on ceftriaxone as well. * Vanc level 19.7 mcg/mL today. Kidney function stabilized. Leukocytosis also improving. DEO remains on hold. 09/02: * Day #3 of resumed vancomycin therapy. Remains on ceftriaxone as well. * Vanc level decreased to 18.9 mcg/mL today. Kidney function continues to improve. Leukocytosis also improving. 09/01: * Day #2 of resumed Vancomycin therapy. Patient also on ceftriaxone. * Level returned today at 19.7 mcg/mL which is therapeutic but at the upper limit of normal. AUC monitoring software does predict this as a therapeutic dose with AUC/JANICE of 523. * Urine output was significant yesterday but patient is receiving Lasix IV. However, SCr has starting trending back down to normal, was 1.05 early this AM and then 0.83 on repeat. * Therefore, will continue current regimen with thought that trough level will start to trend down and not become supratherapeutic. Due to concern for toxicity, will order another level tomorrow prior to the 5th dose which will represent true steady state (to a degree with changing renal function). 08/31: * vancomycin was d/c'd yesterday afternoon and daptomycin resumed. Today, ID wished to switch back to vancomycin as we have susceptibilities for the aerococcus for vancomycin but are unable to obtain this for dapto. * Patient's scr did increase again today and urine output remains low. Will proceed with caution dosing and get another level tomorrow. * Last dose of vancomycin was 08/30 ~ 0500 and last dose of dapto was 08/30 @ 1700. Given this and renal function concerns, will not re-load and start with maintenance dosing. 08/30: * 57 year old M receiving vancomycin and cefepime for treatment of bacteremia, UTI and pulmonary sources. Patient is post cardiac arrest. Pertinent microbiologic data includes: urine culture growing proteus mirabilis and blood cx growing proteus mirabilis and aerococcus viridans. CT abd/pelvis showing left obstructing uretal stone. Scr increased somewhat since yesterday. Will monitor the transiency of this in the setting of acute clinical change. Based on the rise in scr and random level this morning will decrease maintenance dose. Plan Vancomycin * Current regimen: 1000 mg IV every 12 hours * Random level obtained 09/05/23 resulted as 19.7 mcg/mL. This is predicted to achieve target AUC/JANICE of 400-600 mg/L.hr * Predicted AUC at steady state: 515 mg/L.hr * Continue 1000 mg IV every 12 hours * Repeat random level ordered for: 09/08/23 Ceftriaxone * 2000 mg IV every 24 hours Pharmacy will continue to follow and will adjust dose/frequency as necessary. Thank you. Pharmacy has transitioned to AUC monitoring for vancomycin. AUC/JANICE is the preferred PK/PD target and is associated with decreased risk of nephrotoxicity compared to traditional trough targets.
--- NOTE | 2023-09-05 14:02 | Hospitalist Progress Note ---
Date of Service September 05, 2023 Assessment & Plan (1) Cardiac arrest: Plan: First cardiac arrest was outside of the hospital. This was secondary to septic shock. Extubated on 08/24, off of pressors. Patient recovered from it and was transferred out of the ICU. Still on treatment for septicemia. Second cardiac arrest was on 08/29, secondary to hemorrhagic shock from retroperitoneal and intramuscular bleed. Anticoagulation has been held Patient received 2 units PRBC, protamine and FFP on 08/29, 2 more units PRBC on 08/30. 2 more units PRBC on 09/01. Hemoglobin stable Heparin drip started 09/03. Hemoglobin stable on it confirmed DNR/DNI status (2) Acute metabolic encephalopathy: Plan: Started around 08/25 as per patient's but worsened overnight on 08/26 and 08/27 with increased weakness, decreased responsiveness, mostly nonverbal Lactate elevated but otherwise procalcitonin trending downward, renal failure is resolved, some hypokalemia but not severe, sepsis is improving, afebrile Initially thought could be withdrawal from not receiving home Lyrica, gabapentin, or oxycodone CT head negative, but MRI brain on 08/27 showed multiple acute strokes-likely culprit Treating strokes Continue antibiotic therapy for bacteremia (3) Bacteremia: Plan: With septicemia and septic shock-febrile, with leukocytosis, septic shock and PEA arrest on arrival Aerococcus viridans and Proteus isolated in blood cultures. There is also coagulase-negative Staphylococcus which is likely a contaminant. His urine culture also grew Proteus initially and again on 08/27 Aerococcus is also most commonly a organism as per ID. Urine is most likely source but there is also a sacral wound. Sacral wound growing Pseudomonas and Cate, likely colonization Appreciate ID consultation DEO is indicated given multiple embolic appearing strokes-could be septic emboli. DEO was being planned 08/29. However the patient went into cardiac arrest and the procedure was postponed. Currently the patient is on ceftriaxone, vancomycin per ID recommendations Repeat blood cultures on 08/25, 08/27 and 08/29 remain no growth to date Repeat urine culture on 08/27 with Proteus despite ceftriaxone Urology did cystoscopy and left ureteral stent placement 08/30 Continue ceftriaxone for Proteus. Continue vancomycin for coverage for the Aerococcus Follow CBC, CMP (4) Acute CVA (cerebrovascular accident): Plan: Brain MRI ordered on 08/27 due to ongoing expressive aphasia and metabolic encephalopathy, found multiple acute strokes-2 subcentimeter in right frontal and parietal lobes, 2 additional questionable punctate acute infarcts in left occipital and left cerebellar hemisphere He was only off of anticoagulation for 1-2 days at the most during this hospitalization after his heparin drip was discontinued for sacral wound bleeding-heparin drip was resumed but due to compatibility issues and poor IV access, was switched to Lovenox SQ 1 mg/kg twice daily. Seems less likely to be cardioembolic from clot, however could be septic emboli from endocarditis Could be from CPR/resuscitation and aortic arch plaque rupture? Dysphagia improved and right-sided weakness was improving. He had a video swallow on 08/28-able to advance diet to mildly thickened liquids and pured food Holding statin due to daptomycin therapy and also patient not able to take p.o. safely Speech therapy consulted again after the second cardiac arrest He has an allergy to IV contrast dye of hives but reports he has been able to tolerate it with Benadryl in the past-defer CTA head/neck/chest for now Carotid Dopplers negative Continue neuro checks and stroke scale every shift Lipid panel with very low cholesterol, hemoglobin A1c severely elevated at 11.0%-he is not on any diabetes medications-diabetes control addressed Neurology consult placed-thinks strokes due to sepsis, thinks that aspirin is not necessary but patient was on aspirin prior to admission for his previous cardiac issues so was continued. Currently held due to retroperitoneal bleed and hemorrhagic shock. Plan for DEO is being held for the time being due to patient's critical condition. Patient is at risk for further strokes. Patient had bacteremia, DEO not done yet. Not sure if he has valvular vegetations. Moreover he has mechanical valves and has been off of anticoagulation for 5-6 days. If patient's condition gets worse, wants him to be made comfort care. Palliative care on board (5) Atrial fibrillation: Plan: Developed August 25 p.m. and is new onset for patient Heparin drip was started but subsequently discontinued due to bleeding from the freshly debrided sacral decubitus. Was switched to therapeutic Lovenox He was treated for Coumadin toxicity with parenteral vitamin K on August 25, and INR was subtherapeutic Coumadin 7.5 mg was administered x 1 on 08/26 but then held due to NPO status--> resumed 08/29 as now able to take po Was started on Lovenox SQ 100 Mg every 12 hours for bridging On 08/29, had hemorrhagic shock leading to PEA arrest All anticoagulation was held due to retroperitoneal bleed and hemorrhagic shock. Resumed heparin drip 09/03 without bolus. Now on metoprolol 12.5 p.o. twice daily. Increased to 25 p.o. twice daily to better control heart rate and blood pressure Monitor on telemetry (6) Respiratory failure: Plan: Acute hypoxic respiratory failure. He was extubated on the morning of August 24. Resolved. Reintubated as part of code on 08/29. Now extubated 08/31. (7) Aspiration pneumonia of both lower lobes: Plan: Suspected aspiration pneumonia in both lower lobes on admission but repeat chest x-ray is now clear. No need for antibiotic coverage for pneumonia at this point speech therapy following as he did aspirate at the bedside of thin liquids with water on 08/27 in the setting of newly diagnosed acute strokes Now with video swallow and he is aspirating thin liquids but is able to tolerate mildly thickened liquids and pured foods Passed speech evaluation on 08/31. Started on a diet but patient has a very weak voice. Speech therapy on board stated that in case he needs a feeding tube, she would be willing to go forward with that (8) Decubitus ulcer: Plan: Debrided on August 25. Some minor bleeding occurred with heparin drip on August 25 and heparin drip was placed on hold and then was put back on anticoagulation. Currently in hemorrhagic shock due to retroperitoneal bleed. All anticoagulation on hold Continue local care. Appreciate general surgery consultation and recommendations-appreciate bedside debridement Appears blackened in color on 08/29 but Surgeon used silver nitrate to treat the bleeding Wound cx growing Pseudomonas and Cate. Likely to be colonization Wound care on board (9) Chronic anticoagulation: Plan: With Coumadin. He has a mechanical valve and target INR is 2.5-3.5 INR was subtherapeutic at 2 on 08/29 and thus the patient was started on Lovenox bridge. He then had a retroperitoneal hematoma leading to hemorrhagic shock and cardiac arrest. Currently all anticoagulation on hold Will need to start him back on heparin drip soon because of his mechanical valves. Currently heparin drip on hold Dilemma with anticoagulation Without anticoagulation, mechanical valves will clot With anticoagulation, recently had internal bleeding leading to cardiac arrest. Resuming anticoagulation carries bleeding risk. We are in a facility where IR will not be able to stop the bleeding immediately. Transfer to a tertiary care center as an option was offered but the declined. Hemoglobin has been stable. Spoke to and started him on heparin drip on 09/03. Hemoglobin stable on the heparin drip changed CODE STATUS to DNR/DNI 09/02 after a lengthy discussion was held on the phone If he bleeds, she may choose comfort care If he clots, she may choose comfort care Palliative care on board At some point in the near future, he will need to be bridged to start Coumadin p.o. which will be the next challenge (10) Uncontrolled diabetes mellitus with hyperglycemia: Plan: Type 2 diabetes. His hemoglobin A1c is severely elevated at 11.0% Patient's reports that he was started on Lantus 60 units at bedtime but she only gave it to him once and he became significantly hypoglycemic and delirious and she has been fearful to give it ever since. She does give him occasional NovoLog during the day with meals when his blood sugar is elevated Currently on sliding scale coverage and basal insulin therapy with minimal doses as he has been mostly n.p.o Appreciate tobacco educator counseling. Diabetes counselor concerned about poor oral intake. Per , he does not like the pured diet and thus is not eating enough. 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 Hold aspirin, Coumadin, all anticoagulation and all antiplatelet agents Resume statin at a later time if and when swallowing safely (12) Hypertension: Plan: Continue holding home amlodipine,clonidine, furosemide, carvedilol (13) Gout: Plan: Hold home allopurinol (14) BPH w urinary obs/LUTS: Plan: Davis catheter in place (15) Hypokalemia: Plan: Follow BMP and magnesium (16) History of aortic valve replacement with metallic valve: Plan: Noted, also with repair of aortic aneurysm at that time (17) Hyperlipidemia: Plan: Holding statin but would resume at high intensity dose due to strokes (18) Peripheral neuropathy: Plan: With chronic pain, takes pregabalin, gabapentin, and oxycodone as needed Would not combine gabapentin with Lyrica Can take oxycodone as needed but this does make him drowsy Plan 09/02: declined transfer to a tertiary facility. She changed his CODE STATUS to DNR/DNI. If his condition declines, she will choose comfort measures. 09/03: Heparin drip resumed cautiously after speaking to . Admission and Anticipated Discharge Date Admission Date: August 23, 2023 Subjective Patient denies any new complaints. Still very weak with weak voice. Hemoglobin stable. On heparin drip Review of Systems Review of Systems: Unobtainable due to cognitive status Physical Exam Physical Exam: General: Awake. Voice is very weak.. Heart: S1, S2/regular rate and rhythm, no murmur rubs or gallops Lungs: Clear to auscultation bilaterally. Normal effort Abdomen: Soft/nontender/nondistended. No hepatosplenomegaly Extremities: No clubbing/cyanosis. 1+ pitting bilateral edema Behavior: Appropriate, cooperative Results & Data Results & Data Vital Signs (Past 12 Hours) Vital Signs Temp Pulse Pulse Resp BP BP Pulse Ox 09/05/23 11:26 36.3 C L 108 H 18 146/121 H 98 09/05/23 08:00 75 09/05/23 07:14 36.6 C 92 H 23 143/99 H 98 09/05/23 05:20 36.3 C L 88 22 135/111 H 100 09/05/23 03:42 82 18 98 O2 Del Method O2 Flow Rate 09/05/23 11:26 Room Air 09/05/23 08:00 09/05/23 07:14 CPAP 09/05/23 05:20 CPAP 09/05/23 03:42 2 Laboratory Results Abnormal lab results 09/04/23 09/04/23 09/04/23 Range/Units 16:11 16:36 20:16 WBC (4.8-10.8) K/ul RBC (4.70-6.10) M/uL Hgb 10.0 L (14.0-18.0) g/dl Hct 29.9 L (42.0-52.0) % RDW Std Deviation (36.4-46.3) fL RDW Coeff of Malika (11.5-14.5) % Neut # (Auto) (1.40-6.50) K/uL Grant # (Auto) (0.11-0.59) K/uL Immature Gran # (Auto) (0.01-0.20) K/uL Potassium (3.5-5.1) mmol/L Chloride (98-107) mmol/L Carbon Dioxide (21-32) mmol/L Creatinine (0.6-1.4) mg/dl BUN/Creatinine Ratio (10-20) Glucose (70-99(Fasting)) mg/dl POC Glucose 153 H 155 H (70-99) mg/dl Calcium (8.6-10.3) mg/dl Magnesium (1.7-2.4) mg/dl Total Bilirubin (0.2-1.0) mg/dl Troponin I High Sens (0-20) pg/ml Total Protein (6.0-8.3) gm/dl Albumin (3.4-5.0) gm/dl 09/04/23 09/05/23 09/05/23 Range/Units 23:03 01:50 07:16 WBC 16.12 H (4.8-10.8) K/ul RBC 3.77 L (4.70-6.10) M/uL Hgb 10.3 L 10.6 L (14.0-18.0) g/dl Hct 30.1 L 31.7 L (42.0-52.0) % RDW Std Deviation 51.6 H (36.4-46.3) fL RDW Coeff of Malika 18.2 H (11.5-14.5) % Neut # (Auto) 12.09 H (1.40-6.50) K/uL Grant # (Auto) 1.77 H (0.11-0.59) K/uL Immature Gran # (Auto) 0.42 H (0.01-0.20) K/uL Potassium 2.7 L (3.5-5.1) mmol/L Chloride 96 L (98-107) mmol/L Carbon Dioxide 37 H (21-32) mmol/L Creatinine 0.54 L (0.6-1.4) mg/dl BUN/Creatinine Ratio 20.4 H (10-20) Glucose 158 H (70-99(Fasting)) mg/dl POC Glucose 166 H (70-99) mg/dl Calcium 7.5 L (8.6-10.3) mg/dl Magnesium 1.4 L (1.7-2.4) mg/dl Total Bilirubin 1.4 H (0.2-1.0) mg/dl Troponin I High Sens 23.1 H (0-20) pg/ml Total Protein 5.8 L (6.0-8.3) gm/dl Albumin 2.8 L (3.4-5.0) gm/dl 09/05/23 09/05/23 09/05/23 Range/Units 07:25 08:09 11:46 WBC 14.98 H (4.8-10.8) K/ul RBC 3.84 L (4.70-6.10) M/uL Hgb 10.9 L (14.0-18.0) g/dl Hct 32.0 L (42.0-52.0) % RDW Std Deviation 50.4 H (36.4-46.3) fL RDW Coeff of Malika 18.1 H (11.5-14.5) % Neut # (Auto) (1.40-6.50) K/uL Grant # (Auto) (0.11-0.59) K/uL Immature Gran # (Auto) (0.01-0.20) K/uL Potassium (3.5-5.1) mmol/L Chloride (98-107) mmol/L Carbon Dioxide (21-32) mmol/L Creatinine (0.6-1.4) mg/dl BUN/Creatinine Ratio (10-20) Glucose (70-99(Fasting)) mg/dl POC Glucose 154 H 128 H (70-99) mg/dl Calcium (8.6-10.3) mg/dl Magnesium (1.7-2.4) mg/dl Total Bilirubin (0.2-1.0) mg/dl Troponin I High Sens (0-20) pg/ml Total Protein (6.0-8.3) gm/dl Albumin (3.4-5.0) gm/dl PG Care Time/CCT Total # of Minutes Spent Total Time Spent with Patient: Total time spent is greater than 50% in coordination of care (as documented) at patient's floor/unit and/or counseling patient: Coding Level of Care Code 13286 SUB INP/OBS CARE 2/35MIN Diagnoses Cardiac arrest I46.9 Acute metabolic encephalopathy G93.41 Bacteremia R78.81 Acute CVA (cerebrovascular accident) I63.9 Atrial fibrillation I48.91 Respiratory failure J96.00 Chronicity: acute Respiratory failure complication: unspecified whether with hypoxia or hyp ercapnia Aspiration pneumonia of both lower lobes J69.0 Decubitus ulcer L89.90 Chronic anticoagulation Z79.01 Uncontrolled diabetes mellitus with hyperglycemia E11.65 History of stroke Z86.73 Hypertension I10 Gout M10.9 BPH w urinary obs/LUTS N40.1; N13.8 Hypokalemia E87.6 History of aortic valve replacement with metallic valve Z95.4 Hyperlipidemia E78.5 Peripheral neuropathy G62.9 (6) Respiratory failure Chronicity: acute Respiratory failure complication: unspecified whether with hypoxia or hypercapnia Qualified Code(s): J96.00 - Acute respiratory failure, unspecified whether with hypoxia or hypercapnia
[2023-09-05] MEDS: amLODIPine BESYLATE 5 MG TAB PO SCH (15:18)
[2023-09-05 16:14] LABS: Hematocrit (blood only) 30.7 % (42.0-52.0); Hemoglobin 10.1 g/dl (14.0-18.0)
[2023-09-05 20:32] LABS: Hematocrit (blood only) 32.3 % (42.0-52.0); Hemoglobin 10.8 g/dl (14.0-18.0)
--- NOTE | 2023-09-05 20:34 | Communication Note ---
Date of Service: September 05, 2023 Concern for new RUQ pain. Evaluated at bedside, hemodynamically stable with RUQ tenderness, abdomen soft, non-distended. Repeat Hemoglobin= 10.8; stable from prior. Repeat CT A&P with Stable right iliopsoas hematoma with extension into the retroperitoneum. No signs of new bleeding; plan to continue heparin gtt and continue to trend H/H.
[2023-09-05] MEDS: METOPROLOL TARTRATE 25 MG TAB PO SCH (21:46)
--- NOTE | 2023-09-05 22:12 | CT Scan Report ---
Exam(s): CT ABDOMEN + PELVIS Without Contrast EXAM: CT Abdomen and Pelvis Without Intravenous Contrast CLINICAL HISTORY: New Abdominal Pain- concern for GI bleed. TECHNIQUE: Axial computed tomography images of the abdomen and pelvis without intravenous contrast. CTDI is 33.9 mGy and DLP is 2000.57 mGy-cm. Automated exposure control was utilized for the study. A dose lowering technique was utilized adhering to the principles of ALARA. COMPARISON: CT abdomen and pelvis 08/30/2023. FINDINGS: Lung bases: See below. Pleural space: Small right pleural effusion with adjacent atelectasis. ABDOMEN: Liver: Unremarkable. Gallbladder and bile ducts: Question a gallstone of the remnant cystic duct. Pancreas: Unremarkable. No ductal dilation. Spleen: Unremarkable. No splenomegaly. Adrenals: Unremarkable. No mass. Kidneys and ureters: There is a left ureteral stent with minimal hydronephrosis and gas in the collecting system. Stomach and bowel: Diverticulosis. No obstruction. No mucosal thickening. PELVIS: Appendix: No findings to suggest acute appendicitis. Bladder: A Davis catheter is present. No stones. Reproductive: Unremarkable as visualized. ABDOMEN and PELVIS: Intraperitoneal space: Unremarkable. No free air. No significant fluid collection. Retroperitoneal space: Stable right iliopsoas hematoma with extension into the retroperitoneum. Bones/joints: There are degenerative changes of the spine. No acute fracture. Marked nonspecific body wall edema. No dislocation. Soft tissues: Small bilateral fat-containing inguinal hernias. Vasculature: Mild atherosclerosis. No abdominal aortic aneurysm. Lymph nodes: Unremarkable. No enlarged lymph nodes. IMPRESSION: 1. Stable right iliopsoas hematoma with extension into the retroperitoneum. 2. There is a left ureteral stent with minimal hydronephrosis and gas in the collecting system. Cannot exclude infection. 3. Marked nonspecific body wall edema. 4. Question a gallstone of the remnant cystic duct. 5. Small right pleural effusion with adjacent atelectasis. 6. Diverticulosis. Electronically signed by: [place]ia Hanson MD 09/05/23 22:12 PM
[2023-09-06] MEDS: HYDROmorphone INJ 0.5 MG/0.5 ML SYR IV PRN (05:30)
[2023-09-06 06:41] LABS: Hemoglobin 10.3 g/dl (14.0-18.0); Mean Corpuscular Hemoglobin 27.7 pg (25.0-34.0); Mean Corpuscular Hgb Conc 33.2 g/dL (32.0-36.0); Mean Corpuscular Volume 83.3 fL (80.0-100.0); Mean Platelet Volume 9.8 fL (9.4-12.4); Platelet Count 195 K/uL (130-400); RDW Coefficient of Variation 17.9 % (11.5-14.5); RDW Standard Deviation 52.3 fL (36.4-46.3); Red Blood Count 3.72 M/uL (4.70-6.10); White Blood Count 14.55 K/ul (4.8-10.8)
[2023-09-06 07:01] LABS: BUN Creatinine Ratio 27.3 (10-20); Calcium 7.3 mg/dl (8.6-10.3); Creatinine Clr Calc Pharmacy 178.3 ml/min; Est GFR (African American) 133.1 ml/min; Est GFR (Non-African American) 114.9 ml/min; Potassium 2.8 mmol/L (3.5-5.1)
[2023-09-06 07:25] LABS: ANTI-Xa, UFH(UnfractionatedHep 0.58 IU/ml (0.3-0.7)
[2023-09-06] MEDS: POTASSIUM CHLORIDE CRTAB 20 MEQ TABCR PO STA (12:11)
[2023-09-06] MEDS: POTASSIUM CHLORIDE / WTR 10 MEQ/100 ML PLCT IV SCH (12:14)
--- NOTE | 2023-09-06 14:13 | Hospitalist Progress Note ---
Date of Service September 06, 2023 Assessment & Plan (1) Cardiac arrest: Plan: First cardiac arrest was outside of the hospital. This was secondary to septic shock. Extubated on 08/24, off of pressors. Patient recovered from it and was transferred out of the ICU. Still on treatment for septicemia. Second cardiac arrest was on 08/29, secondary to hemorrhagic shock from retroperitoneal and intramuscular bleed. Anticoagulation has been held Patient received 2 units PRBC, protamine and FFP on 08/29, 2 more units PRBC on 08/30. 2 more units PRBC on 09/01. Hemoglobin stable Heparin drip started 09/03. Hemoglobin stable on it confirmed DNR/DNI status (2) Acute metabolic encephalopathy: Plan: Started around 08/25 as per patient's but worsened overnight on 08/26 and 08/27 with increased weakness, decreased responsiveness, mostly nonverbal Lactate elevated but otherwise procalcitonin trending downward, renal failure is resolved, some hypokalemia but not severe, sepsis is improving, afebrile Initially thought could be withdrawal from not receiving home Lyrica, gabapentin, or oxycodone CT head negative, but MRI brain on 08/27 showed multiple acute strokes-likely culprit Treating strokes Continue antibiotic therapy for bacteremia (3) Bacteremia: Plan: With septicemia and septic shock-febrile, with leukocytosis, septic shock and PEA arrest on arrival Aerococcus viridans and Proteus isolated in blood cultures. There is also coagulase-negative Staphylococcus which is likely a contaminant. His urine culture also grew Proteus initially and again on 08/27 Aerococcus is also most commonly a organism as per ID. Urine is most likely source but there is also a sacral wound. Sacral wound growing Pseudomonas and Cate, likely colonization Appreciate ID consultation DEO is indicated given multiple embolic appearing strokes-could be septic emboli. DEO was being planned 08/29. However the patient went into cardiac arrest and the procedure was postponed. Currently the patient is on ceftriaxone, vancomycin per ID recommendations Repeat blood cultures on 08/25, 08/27 and 08/29 remain no growth to date Repeat urine culture on 08/27 with Proteus despite ceftriaxone Urology did cystoscopy and left ureteral stent placement 08/30 Continue ceftriaxone for Proteus. Continue vancomycin for coverage for the Aerococcus Follow CBC, CMP (4) Acute CVA (cerebrovascular accident): Plan: Brain MRI ordered on 08/27 due to ongoing expressive aphasia and metabolic encephalopathy, found multiple acute strokes-2 subcentimeter in right frontal and parietal lobes, 2 additional questionable punctate acute infarcts in left occipital and left cerebellar hemisphere He was only off of anticoagulation for 1-2 days at the most during this hospitalization after his heparin drip was discontinued for sacral wound bleeding-heparin drip was resumed but due to compatibility issues and poor IV access, was switched to Lovenox SQ 1 mg/kg twice daily. Seems less likely to be cardioembolic from clot, however could be septic emboli from endocarditis Could be from CPR/resuscitation and aortic arch plaque rupture? Dysphagia improved and right-sided weakness was improving. He had a video swallow on 08/28-able to advance diet to mildly thickened liquids and pured food Holding statin due to daptomycin therapy and also patient not able to take p.o. safely Speech therapy consulted again after the second cardiac arrest He has an allergy to IV contrast dye of hives but reports he has been able to tolerate it with Benadryl in the past-defer CTA head/neck/chest for now Carotid Dopplers negative Continue neuro checks and stroke scale every shift Lipid panel with very low cholesterol, hemoglobin A1c severely elevated at 11.0%-he is not on any diabetes medications-diabetes control addressed Neurology consult placed-thinks strokes due to sepsis, thinks that aspirin is not necessary but patient was on aspirin prior to admission for his previous cardiac issues so was continued. Currently held due to retroperitoneal bleed and hemorrhagic shock. Plan for DEO is being held for the time being due to patient's critical condition. Patient is at risk for further strokes. Patient had bacteremia, DEO not done yet. Not sure if he has valvular vegetations. If patient's condition gets worse, wants him to be made comfort care. Palliative care on board (5) Atrial fibrillation: Plan: Developed August 25 p.m. and is new onset for patient Heparin drip was started but subsequently discontinued due to bleeding from the freshly debrided sacral decubitus. Was switched to therapeutic Lovenox He was treated for Coumadin toxicity with parenteral vitamin K on August 25, and INR was subtherapeutic Coumadin 7.5 mg was administered x 1 on 08/26 but then held due to NPO status--> resumed 08/29 as now able to take po Was started on Lovenox SQ 100 Mg every 12 hours for bridging On 08/29, had hemorrhagic shock leading to PEA arrest All anticoagulation was held due to retroperitoneal bleed and hemorrhagic shock. Resumed heparin drip 09/03 without bolus. Will eventually start Coumadin. Now on metoprolol 12.5 p.o. twice daily. Increased to 25 p.o. twice daily to better control heart rate and blood pressure Monitor on telemetry (6) Respiratory failure: Plan: Acute hypoxic respiratory failure. He was extubated on the morning of August 24. Resolved. Reintubated as part of code on 08/29. Now extubated 08/31. (7) Aspiration pneumonia of both lower lobes: Plan: Suspected aspiration pneumonia in both lower lobes on admission but repeat chest x-ray is now clear. No need for antibiotic coverage for pneumonia at this point speech therapy following as he did aspirate at the bedside of thin liquids with water on 08/27 in the setting of newly diagnosed acute strokes Now with video swallow and he is aspirating thin liquids but is able to tolerate mildly thickened liquids and pured foods Passed speech evaluation on 08/31. Started on a diet but patient has a very weak voice. Speech therapy on board Patient does not want a feeding tube placed. (8) Decubitus ulcer: Plan: Debrided on August 25. Some minor bleeding occurred with heparin drip on August 25 and heparin drip was placed on hold and then was put back on anticoagulation. Currently in hemorrhagic shock due to retroperitoneal bleed. All anticoagulation on hold Continue local care. Appreciate general surgery consultation and recommendations-appreciate bedside debridement Appears blackened in color on 08/29 but Surgeon used silver nitrate to treat the bleeding Wound cx growing Pseudomonas and Cate. Likely to be colonization Wound care on board (9) Chronic anticoagulation: Plan: With Coumadin. He has a mechanical valve and target INR is 2.5-3.5 INR was subtherapeutic at 2 on 08/29 and thus the patient was started on Lovenox bridge. He then had a retroperitoneal hematoma leading to hemorrhagic shock and cardiac arrest. Currently all anticoagulation on hold Will need to start him back on heparin drip soon because of his mechanical valves. Currently heparin drip on hold Dilemma with anticoagulation Without anticoagulation, mechanical valves will clot With anticoagulation, recently had internal bleeding leading to cardiac arrest. Resuming anticoagulation carries bleeding risk. We are in a facility where IR will not be able to stop the bleeding immediately. Transfer to a tertiary care center as an option was offered but the declined. Hemoglobin has been stable. Spoke to and started him on heparin drip on 09/03. Hemoglobin stable on the heparin drip changed CODE STATUS to DNR/DNI 09/02 after a lengthy discussion was held on the phone If he bleeds, she may choose comfort care If he clots, she may choose comfort care Palliative care on board At some point in the near future, he will need to be bridged to start Coumadin p.o. which will be the next challenge. Will start Coumadin p.o. once able to take p.o. reliably (10) Uncontrolled diabetes mellitus with hyperglycemia: Plan: Type 2 diabetes. His hemoglobin A1c is severely elevated at 11.0% Patient's reports that he was started on Lantus 60 units at bedtime but she only gave it to him once and he became significantly hypoglycemic and delirious and she has been fearful to give it ever since. She does give him occasional NovoLog during the day with meals when his blood sugar is elevated Currently on sliding scale coverage and basal insulin therapy with minimal doses as he has been mostly n.p.o Appreciate early childhood educator aide counseling. Diabetes counselor concerned about poor oral intake. Per , he does not like the pured diet and thus is not eating enough. 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 Hold aspirin, Coumadin, all anticoagulation and all antiplatelet agents Resume statin at a later time if and when swallowing safely (12) Hypertension: Plan: Continue holding home amlodipine,clonidine, furosemide, carvedilol (13) Gout: Plan: Hold home allopurinol (14) BPH w urinary obs/LUTS: Plan: Davis catheter in place (15) Hypokalemia: Plan: Follow BMP and magnesium (16) History of aortic valve replacement with metallic valve: Plan: Noted, also with repair of aortic aneurysm at that time (17) Hyperlipidemia: Plan: Holding statin but would resume at high intensity dose due to strokes (18) Peripheral neuropathy: Plan: With chronic pain, takes pregabalin, gabapentin, and oxycodone as needed Would not combine gabapentin with Lyrica Can take oxycodone as needed but this does make him drowsy Plan 09/02: declined transfer to a tertiary facility. She changed his CODE STATUS to DNR/DNI. If his condition declines, she will choose comfort measures. 09/03: Heparin drip resumed cautiously after speaking to . 09/05: Patient does not want feeding tube Admission and Anticipated Discharge Date Admission Date: August 23, 2023 Subjective Patient has intermittent episodes of lethargy. This morning, he was able to communicate with me. He stated that he did not want a feeding tube. He also does not really want to go to a longterm. Review of Systems Review of Systems: All systems reviewed & are unremarkable except as noted in Subjective Physical Exam Physical Exam: General: Awake. Voice is very weak.. Heart: S1, S2/regular rate and rhythm, no murmur rubs or gallops Lungs: Clear to auscultation bilaterally. Normal effort Abdomen: Soft/nontender/nondistended. No hepatosplenomegaly Extremities: No clubbing/cyanosis. 1+ pitting bilateral edema Behavior: Appropriate, cooperative Results & Data Results & Data Vital Signs (Past 12 Hours) Vital Signs Temp Pulse Pulse Resp BP BP Pulse Ox 09/06/23 08:00 09/06/23 07:24 36.3 C L 80 24 154/89 H 98 09/06/23 03:16 36.4 C L 82 20 147/89 H 99 09/06/23 02:09 85 18 95 O2 Del Method O2 Flow Rate 09/06/23 08:00 Nasal Cannula 2 09/06/23 07:24 BiPAP 09/06/23 03:16 CPAP 09/06/23 02:09 2 Laboratory Results Abnormal lab results 09/05/23 09/05/23 09/05/23 Range/Units 15:50 16:26 20:12 WBC (4.8-10.8) K/ul RBC (4.70-6.10) M/uL Hgb 10.1 L (14.0-18.0) g/dl Hct 30.7 L (42.0-52.0) % RDW Std Deviation (36.4-46.3) fL RDW Coeff of Malika (11.5-14.5) % Potassium (3.5-5.1) mmol/L Carbon Dioxide (21-32) mmol/L Creatinine (0.6-1.4) mg/dl BUN/Creatinine Ratio (10-20) Glucose (70-99(Fasting)) mg/dl POC Glucose 127 H 202 H (70-99) mg/dl Calcium (8.6-10.3) mg/dl 09/05/23 09/06/23 09/06/23 Range/Units 20:13 06:18 07:11 WBC 14.55 H (4.8-10.8) K/ul RBC 3.72 L (4.70-6.10) M/uL Hgb 10.8 L 10.3 L (14.0-18.0) g/dl Hct 32.3 L 31.0 L (42.0-52.0) % RDW Std Deviation 52.3 H (36.4-46.3) fL RDW Coeff of Malika 17.9 H (11.5-14.5) % Potassium 2.8 L (3.5-5.1) mmol/L Carbon Dioxide 35 H (21-32) mmol/L Creatinine 0.55 L (0.6-1.4) mg/dl BUN/Creatinine Ratio 27.3 H (10-20) Glucose 135 H (70-99(Fasting)) mg/dl POC Glucose 144 H (70-99) mg/dl Calcium 7.3 L (8.6-10.3) mg/dl 09/06/23 Range/Units 11:29 WBC (4.8-10.8) K/ul RBC (4.70-6.10) M/uL Hgb (14.0-18.0) g/dl Hct (42.0-52.0) % RDW Std Deviation (36.4-46.3) fL RDW Coeff of Malika (11.5-14.5) % Potassium (3.5-5.1) mmol/L Carbon Dioxide (21-32) mmol/L Creatinine (0.6-1.4) mg/dl BUN/Creatinine Ratio (10-20) Glucose (70-99(Fasting)) mg/dl POC Glucose 122 H (70-99) mg/dl Calcium (8.6-10.3) mg/dl Diagnostic Findings Abdomen/Pelvis CT 09/05/23 20:26 Exam(s): CT ABDOMEN + PELVIS Without Contrast EXAM: CT Abdomen and Pelvis Without Intravenous Contrast CLINICAL HISTORY: New Abdominal Pain- concern for GI bleed. TECHNIQUE: Axial computed tomography images of the abdomen and pelvis without intravenous contrast. CTDI is 33.9 mGy and DLP is 2000.57 mGy-cm. Automated exposure control was utilized for the study. A dose lowering technique was utilized adhering to the principles of ALARA. COMPARISON: CT abdomen and pelvis 08/30/2023. FINDINGS: Lung bases: See below. Pleural space: Small right pleural effusion with adjacent atelectasis. ABDOMEN: Liver: Unremarkable. Gallbladder and bile ducts: Question a gallstone of the remnant cystic duct. Pancreas: Unremarkable. No ductal dilation. Spleen: Unremarkable. No splenomegaly. Adrenals: Unremarkable. No mass. Kidneys and ureters: There is a left ureteral stent with minimal hydronephrosis and gas in the collecting system. Stomach and bowel: Diverticulosis. No obstruction. No mucosal thickening. PELVIS: Appendix: No findings to suggest acute appendicitis. Bladder: A Davis catheter is present. No stones. Reproductive: Unremarkable as visualized. ABDOMEN and PELVIS: Intraperitoneal space: Unremarkable. No free air. No significant fluid collection. Retroperitoneal space: Stable right iliopsoas hematoma with extension into the retroperitoneum. Bones/joints: There are degenerative changes of the spine. No acute fracture. Marked nonspecific body wall edema. No dislocation. Soft tissues: Small bilateral fat-containing inguinal hernias. Vasculature: Mild atherosclerosis. No abdominal aortic aneurysm. Lymph nodes: Unremarkable. No enlarged lymph nodes. IMPRESSION: 1. Stable right iliopsoas hematoma with extension into the retroperitoneum. 2. There is a left ureteral stent with minimal hydronephrosis and gas in the collecting system. Cannot exclude infection. 3. Marked nonspecific body wall edema. 4. Question a gallstone of the remnant cystic duct. 5. Small right pleural effusion with adjacent atelectasis. 6. Diverticulosis. Electronically signed by: [place]ia Hanson MD 09/05/23 22:12 PM PG Care Time/CCT Total # of Minutes Spent Total Time Spent with Patient: Total time spent is greater than 50% in coordination of care (as documented) at patient's floor/unit and/or counseling patient: Coding Level of Care Code 74191 SUB INP/OBS CARE 2/35MIN Diagnoses Cardiac arrest I46.9 Acute metabolic encephalopathy G93.41 Bacteremia R78.81 Acute CVA (cerebrovascular accident) I63.9 Atrial fibrillation I48.91 Respiratory failure J96.00 Chronicity: acute Respiratory failure complication: unspecified whether with hypoxia or hypercapnia Aspiration pneumonia of both lower lobes J69.0 Decubitus ulcer L89.90 Chronic anticoagulation Z79.01 Uncontrolled diabetes mellitus with hyperglycemia E11.65 History of stroke Z86.73 Hypertension I10 Gout M10.9 BPH w urinary obs/LUTS N40.1; N13.8 Hypokalemia E87.6 History of aortic valve replacement with metallic valve Z95.4 Hyperlipidemia E78.5 Peripheral neuropathy G62.9 (6) Respiratory failure Chronicity: acute Respiratory failure complication: unspecified whether with hypoxia or hypercapnia Qualified Code(s): J96.00 - Acute respiratory failure, unspecified whether with hypoxia or hypercapnia
[2023-09-06] MEDS ORDERED: SODIUM BICARB 8.4% INJ 50 MEQ/50 ML SYR IV ONE (16:29)
[2023-09-06] MEDS ORDERED: CALCIUM CHLORIDE 10% 10 ML SYR IV ONE (16:29)
[2023-09-06] MEDS: THIAMINE HCL 100 MG TAB PO SCH (20:07)
--- NOTE | 2023-09-06 20:11 | Palliative Family Discussion ---
Date of Service September 06, 2023 Patient Directed Conference Time of Meetin-1110am Participants: Catherine Prakash DNP Patient participation: no, lethargic Patient Support System: yes, Chastity Other Healthcare Provider Participation: None Meeting Location: telephonic, does not drive/does not have a car and watches their 4yo grand daughter rn team leader, child lives with them Advanced Directive available: no however chastity and anurag have been discussing his wishes during some earlier periods of lucidity. he told her he does not want CPR again He does not want a feeding tube He does not want a fci, wants to come home his favorite person in the world is his grand daughter and he wants to be as close to her and spend as much time with her as he is able A telephonic ACP meeting was held for MARITA LEONE. This meeting was necessary for determining the appropriate course of treatment. Topics of Discussion Topics of Discussion: 1. Anurag has expressed desire to return to more of a regular diet. He would not want feeding tubes. He would not want nursing homes. He does not like pureed foods. It is hard for him to feed himself but he is "too proud to ask for help so he sits there starving till i get in" 2. Chastity and discussed pros and cons of feeding tubes for patients in Anurag's situation and more specifically we spoke about why it is important to know his wishes and honor them when he cannot communicate them to medical teams. She is thankful he had some clear thinking days and adds not wanting to be in SNF or hooked up to things is not surprising for him. He would above all else want to be home. 3. Chastity is clear she can no longer care for pt. Their 4yo grand daughter lives in their home, per Chastity, their daughter works and lives in [place] and cannot manage a child and work. The child is very rambunctious, active and sometimes can be destructive per Chastity who also adds that "no matter what else, this child is my top priority to care for and look after." She cannot manage both the child and patient, and she does not have other help/family. Other Content of Meetin. Opportunity given for participants to speak and ask questions. 2. Participants were assured of attention to patient comfort. 3. Reassurance provided. 4. Support was provided for informed, good-abram decisions. 5. Emotions expressed by family were acknowledged and addressed. 6. Plan of Care: We agreed to the following plan of care - no feeding tube per pt wishes, SNF with rehab trial + PT + ST/OT + wound care. See how much better things can get. If really improved, wound is healed and he can eat "normal foods" then she is open to having him come back home so long as he can help in his care. If he worsens or does not improve at all she would desire bias cutter helper care conversion after rehab and she knows pt will not like this however she also notes his mental status waxes and wanes. He remains consistently inconsistent, and he does not have consistent decisional capacity. She is aware she is his decision maker under [place] ACt 169. TS 40min ACP Thank you for allowing us to participate in the ongoing care of this patient. Please don't hesitate to call or page with any additional concerns. Dr. Catherine Prakash DNP Director, Palliative Care
[2023-09-07 06:18] LABS: Hematocrit (blood only) 31.1 % (42.0-52.0); Hemoglobin 10.2 g/dl (14.0-18.0); Mean Corpuscular Hemoglobin 27.8 pg (25.0-34.0); Mean Corpuscular Hgb Conc 32.8 g/dL (32.0-36.0); Mean Corpuscular Volume 84.7 fL (80.0-100.0); Mean Platelet Volume 9.8 fL (9.4-12.4); Platelet Count 192 K/uL (130-400); RDW Coefficient of Variation 18.3 % (11.5-14.5); RDW Standard Deviation 54.9 fL (36.4-46.3); Red Blood Count 3.67 M/uL (4.70-6.10); White Blood Count 11.78 K/ul (4.8-10.8)
[2023-09-07 06:22] LABS: ANTI-Xa, UFH(UnfractionatedHep 0.63 IU/ml (0.3-0.7); BUN Creatinine Ratio 21.2 (10-20); Calcium 7.8 mg/dl (8.6-10.3); Creatinine Clr Calc Pharmacy 148.6 ml/min; Est GFR (African American) 123.5 ml/min; Est GFR (Non-African American) 106.6 ml/min; Potassium 3.2 mmol/L (3.5-5.1)
--- NOTE | 2023-09-07 07:39 | Infectious Disease Progress Nt ---
Date of Service September 07, 2023 Assessment & Plan (1) Acute metabolic encephalopathy: (2) Septic shock: (3) Cardiac arrest: (4) Bacteremia: (5) UTI (urinary tract infection): Plan PROBLEM LIST: # Bacteremia 2/2 Aerococcus viridans, cleared 08/25 # Bacteremia and UTI 2/2 P mirabilis, cleared 08/25 # UTI with obstructing left ureteral calculus s/p ureteral stent 08/31 # Aortic valve replacement # Decubitus ulcer s/p bedside debridement 08/25, cx 08/29 with PsA # Large right RP bleed with extraperitoneal and intramuscular hematomas (including R iliopsoas) # Cardiac arrest (prior to admission and then on 08/29) # Hemorrhagic shock on 08/29 # Multiple infarcts on MRI brain # Aspiration PNA from admission s/p tx # Septic shock on admission resolved # AMRIT - improved # Transaminitis / shock improved # PCN allergy # QTC 565 MICRO 08/23/23 Bcx 06/11 bottles Proteus mirabilis R Cefazolin, R ciprofloxacin 08/22 Bcx 06/11 bottles Aerococcus viridans JANICE PCN 0.12 S, >2 SCHOOL AIDE R, Vancomycin S CoNS (not lug, bottles) 08/22 Ucx Proteus 08/25 Blood cx NG 08/27 Bcx NG, Ucx P mirabilis 10K cfu/ml I cefazolin, R levofloxacin 08/30 Ucx NG 08/29 wound cx PSA, R cefepime, I zosyn, C. albicans 57yo M with h/o uncontrolled DM, HTN, HLD, peripheral neuropathy, BPH with LUTS, GERD, gout, stroke with residual left hemiparesis, bicuspid AV s/p mechanical AVR 08/2011 on chronic anticoagulation who presented on 08/22 after [id number] cardiac PEA arrest with ROSC obtained after about 5 to 7 minutes. ID consulted for polymicrobial bacteremia. Intubated in the ED and started on pressors. Found to be febrile up to 40.7. Initial labs with WBC 19.63. Cr 2.70. Elevated AST/ALT, troponin, and lactate. PCT > 100. UA > 50 WBC. UCx with P mirabilis. BCx polymicrobial. CT head negative, CT chest with multifocal pneumonia at the bilateral bases. CTAP with severe bladder wall thickening with Davis present. He was admitted to the ICU and started on broad spectrum abx. TTE limited, normal LV function, AV sclerosis. CXR with left pleural effusion. Thoracentesis deferred due to elevated INR. Extubated 08/24. Noted to have a sacral decubitus ulcer and seen by surgery, bedside debridement was done on 08/25. CXR from 08/24 with bl pleural effusions L>R, left consolidation. ID consulted on 08/27 at which time patient noted to be altered. UA done which had > 50 WBC, UCx P mirabilis. BCx ngtd. CTH negative, CXR without consolidation. MRI with acute infarcts in R frontal and parietal lobes, questionable infarcts in left occipital and cerebellar hemisphere. Repeat TTE negative for vegetations on mitral, tricuspid, or pulmonic valves. Unable to get DEO due to mental status. Course c/b PEA arrest on 08/29 and transferred to ICU, s/p intubation and pressors. CXR with right basilar linear densities favor subsegmental atelectasis. CTAP with moderate- large R sided RP, extraperitoneal, and IM hematomas; obstructing 8mm stone in proximal left ureter causing hydronephrosis. CT chest with RLL densities persist and may be atelectasis and/or PNA, left basilar densities improved. Repeat CTA A/P showed small amount of active bleeding of stable RP hematoma, stable R iliopsoas hematoma. S/p left ureteral stent placement on 08/30. Sacral cx resulted with resistant Pseudomonas. Regarding sacral cultures, from last I saw, I did not think his sacrum was infected and cultures could represent colonization. However, would have wound care re-evaluate the sacral wound and also include image in chart. If there is e/o infection (erythema, purulent drainage, etc), then would change CTX to meropenem. Will avoid use of fluoroquinolone since he has a prolonged QTC. Regrading Aerococcus bacteremia, need to r/o endocarditis in the setting of mechanical AV and multiple cerebral infarcts. Sensitivities for this has returned and is resistant to CTX. He has a PCN allergy unfortunately and cx sensitive to vanc. daptomycin sensitivities cannot be run after they discussed with [facility] since there is in no guidance on this. After discussion with our ID pharmacist, it is much safer to use vancomycin in this setting as daptomycin use is uncertain, at least until endocarditis is ruled out He also had CONS on BCX, this is likely contaminant. Discussion: Patient a/w septic shock and polymicrobial bacteremia, hospital course c/b PEA arrest, ICU stay, intubation now extubated. Attempt at DEO initially in setting of AVR has been held given how sick he was and PEA arrest. Imaging also c/f CVAs. Aerococcus bacteremia typically from urine although urine cx negative. This is R to SCHOOL AIDE but sens to PCN and Vancomycin. Patient has been on treatment with Vancomycin. Proteus is I to Cefazolin and is on SCHOOL AIDE. TTE didnt identify endocarditis but DEO would be more definitive. c/f attempting DEO given PEA arrest, QTc prolongation etc. Typica therapy for gram neg prosthetic valve IE would include quinolone (this proteus is R) and/or aminglycoside (patient in amrit) both of which would not be indicated in this patient. There are no IDSA guidelines for aerococcus but will treat similar to strep, c/w Vancomycin. Will plan to treat for 6 weeks total from first negative blood culture with close 2DE monitoring and surveillance blood cultures after therapy completed. REC: -C/W Vancomycin, pharm following levels -C/W Ceftriaxone -Anticipate 6 week therapy unless able to do DEO (and shows no vegetation) -If not then will treat x 6 weeks through 10/06/23 with close monitoring of vanco levels, weekly CBC with diff and CMP As importantly would recommend a t 2DE at end of therapy to evaluate function of AVR and surveillance blood cultures 3-7 days after completing abx and to monitor for any s/s of bacterial endocarditis or fevers, inc WBC etc. -If able to get DEO then we can likely shorten duration of treatment to 4 weeks Please call ID with any further questions Cristina Cartwright MD Infectious Diseases [facility], [facility] Admission and Anticipated Discharge Date Admission Date: August 23, 2023 Subjective This patient recommendation is based on a telemedicine consult request which was completed asynchronously through chart review and information provided by the primary physician. The patient was not seen or examined today. The evaluation is consultative in nature and all patient care and treatment decisions can either be accepted or rejected by the patient's primary hospital-based treating physician using their own independent medical judgment for their patient. Time Spent Reviewing Chart: 21 - 30 minutes Results & Data Vital Signs (Past 12 Hours) Vital Signs Temp Pulse Pulse Resp BP Pulse Ox O2 Del Method 09/07/23 03:16 36.9 C 77 24 149/94 H 98 Room Air 09/07/23 03:15 84 15 97 09/06/23 23:28 36.9 C 70 26 H 136/104 H 97 Room Air 09/06/23 22:30 81 25 H 97 09/06/23 22:15 73 O2 Flow Rate 09/07/23 03:16 09/07/23 03:15 2 09/06/23 23:28 09/06/23 22:30 2 09/06/23 22:15 Laboratory Results Short CBC 09/07/23 Range/Units 05:34 WBC 11.78 H (4.8-10.8) K/ul Hgb 10.2 L (14.0-18.0) g/dl Hct 31.1 L (42.0-52.0) % Plt Count 192 (130-400) K/uL BMP 09/07/23 05:34 Sodium 137 Potassium 3.2 L Chloride 98 Carbon Dioxide 34 H BUN 14 Creatinine 0.66 Glucose 136 H Calcium 7.8 L Microbiology 08/31/23 Unknown Urine,Ureter Gram Stain - Final 08/31/23 Unknown Urine,Ureter Aerobic and Anaerobic Culture - Final No growth 08/30/23 16:19 Blood Aerobic Blood Culture - Final No growth in Aerobic bottle after 5 days. 08/30/23 16:19 Blood Anaerobic Blood Culture - Final No growth in Anaerobic bottle after 5 days. 08/30/23 16:19 Blood Aerobic Blood Culture - Final No growth in Aerobic bottle after 5 days. 08/30/23 16:19 Blood Anaerobic Blood Culture - Final No growth in Anaerobic bottle after 5 days. 08/28/23 07:58 Blood Aerobic Blood Culture - Final No growth in Aerobic bottle after 5 days. 08/28/23 07:58 Blood Anaerobic Blood Culture - Final No growth in Anaerobic bottle after 5 days. 08/28/23 08:22 Blood Aerobic Blood Culture - Final No growth in Aerobic bottle after 5 days. 08/28/23 08:22 Blood Anaerobic Blood Culture - Final 08/30/23 15:20 Sputum,Vent Suction Gram Stain - Final 08/30/23 15:20 Sputum,Vent Suction Sputum Culture - Final Light normal melva. 08/30/23 Unknown Buttock Gram Stain - Final 08/30/23 Unknown Buttock Wound Culture - Final Pseudomonas aeruginosa Cate albicans/dubliniensis 08/23/23 19:08 Blood Aerobic Blood Culture - Final Proteus mirabilis 08/23/23 19:08 Blood Anaerobic Blood Culture - Final Proteus mirabilis Coag neg staph not lugdunensis Aerococcus viridans 08/26/23 10:53 Blood Aerobic Blood Culture - Final No growth in Aerobic bottle after 5 days. 08/26/23 10:53 Blood Anaerobic Blood Culture - Final 08/26/23 10:20 Blood Aerobic Blood Culture - Final No growth in Aerobic bottle after 5 days. 08/26/23 10:20 Blood Anaerobic Blood Culture - Final No growth in Anaerobic bottle after 5 days. 08/28/23 09:25 Urine,Straight Cath Urine Culture - Final Proteus mirabilis 08/23/23 19:08 Blood Aerobic Blood Culture - Final Aerococcus viridans 08/23/23 19:08 Blood Anaerobic Blood Culture - Final 08/23/23 19:16 Urine,Clean Catch Urine Culture - Final Proteus mirabilis
--- NOTE | 2023-09-07 13:53 | Hospitalist Progress Note ---
Date of Service September 07, 2023 Assessment & Plan (1) Cardiac arrest: Plan: First cardiac arrest was outside of the hospital. This was secondary to septic shock. Extubated on 08/24, off of pressors. Patient recovered from it and was transferred out of the ICU. Still on treatment for septicemia. Second cardiac arrest was on 08/29, secondary to hemorrhagic shock from retroperitoneal and intramuscular bleed. Anticoagulation has been held Patient received 2 units PRBC, protamine and FFP on 08/29, 2 more units PRBC on 08/30. 2 more units PRBC on 09/01. Hemoglobin stable Heparin drip started 09/03. Hemoglobin stable on it confirmed DNR/DNI status (2) Acute metabolic encephalopathy: Plan: Started around 08/25 as per patient's but worsened overnight on 08/26 and 08/27 with increased weakness, decreased responsiveness, mostly nonverbal Lactate elevated but otherwise procalcitonin trending downward, renal failure is resolved, some hypokalemia but not severe, sepsis is improving, afebrile Initially thought could be withdrawal from not receiving home Lyrica, gabapentin, or oxycodone CT head negative, but MRI brain on 08/27 showed multiple acute strokes-likely culprit Treating strokes Continue antibiotic therapy for bacteremia (3) Bacteremia: Plan: With septicemia and septic shock-febrile, with leukocytosis, septic shock and PEA arrest on arrival Aerococcus viridans and Proteus isolated in blood cultures. There is also coagulase-negative Staphylococcus which is likely a contaminant. His urine culture also grew Proteus initially and again on 08/27 Aerococcus is also most commonly a organism as per ID. Urine is most likely source but there is also a sacral wound. Sacral wound growing Pseudomonas and Cate, likely colonization Appreciate ID consultation DEO is indicated given multiple embolic appearing strokes-could be septic emboli. DEO was being planned 08/29. However the patient went into cardiac arrest and the procedure was postponed. Currently the patient is on ceftriaxone, vancomycin per ID recommendations Repeat blood cultures on 08/25, 08/27 and 08/29 remain no growth to date Repeat urine culture on 08/27 with Proteus despite ceftriaxone Urology did cystoscopy and left ureteral stent placement 08/30 Continue ceftriaxone for Proteus. Continue vancomycin for coverage for the Aerococcus Follow CBC, CMP (4) Acute CVA (cerebrovascular accident): Plan: Brain MRI ordered on 08/27 due to ongoing expressive aphasia and metabolic encephalopathy, found multiple acute strokes-2 subcentimeter in right frontal and parietal lobes, 2 additional questionable punctate acute infarcts in left occipital and left cerebellar hemisphere He was only off of anticoagulation for 1-2 days at the most during this hospitalization after his heparin drip was discontinued for sacral wound bleeding-heparin drip was resumed but due to compatibility issues and poor IV access, was switched to Lovenox SQ 1 mg/kg twice daily. Seems less likely to be cardioembolic from clot, however could be septic emboli from endocarditis Could be from CPR/resuscitation and aortic arch plaque rupture? Dysphagia improved and right-sided weakness was improving. He had a video swallow on 08/28-able to advance diet to mildly thickened liquids and pured food Holding statin due to daptomycin therapy and also patient not able to take p.o. safely Speech therapy consulted again after the second cardiac arrest Carotid Dopplers negative Continue neuro checks and stroke scale Lipid panel with very low cholesterol, hemoglobin A1c severely elevated at 11.0%-he is not on any diabetes medications-diabetes control addressed Neurology consult placed-thinks strokes due to sepsis, thinks that aspirin is not necessary but patient was on aspirin prior to admission for his previous cardiac issues so was continued. Currently held due to retroperitoneal bleed and hemorrhagic shock. Plan for DEO is being held for the time being due to patient's critical condition. Patient is at risk for further strokes. Patient had bacteremia, DEO not done yet. Not sure if he has valvular vegetations. If patient's condition gets worse, wants him to be made comfort care. Palliative care on board (5) Atrial fibrillation: Plan: Developed August 25 p.m. and is new onset for patient Heparin drip was started but subsequently discontinued due to bleeding from the freshly debrided sacral decubitus. Was switched to therapeutic Lovenox He was treated for Coumadin toxicity with parenteral vitamin K on August 25, and INR was subtherapeutic Coumadin 7.5 mg was administered x 1 on 08/26 but then held due to NPO status--> resumed 08/29 as now able to take po Was started on Lovenox SQ 100 Mg every 12 hours for bridging On 08/29, had hemorrhagic shock leading to PEA arrest All anticoagulation was held due to retroperitoneal bleed and hemorrhagic shock. Resumed heparin drip 09/03 without bolus. Will eventually start Coumadin. Now on metoprolol 12.5 p.o. twice daily. Increased to 25 p.o. twice daily to better control heart rate and blood pressure Monitor on telemetry (6) Respiratory failure: Plan: Acute hypoxic respiratory failure. He was extubated on the morning of August 24. Resolved. Reintubated as part of code on 08/29. Now extubated 08/31. (7) Aspiration pneumonia of both lower lobes: Plan: Suspected aspiration pneumonia in both lower lobes on admission but repeat chest x-ray is now clear. No need for antibiotic coverage for pneumonia at this point speech therapy following as he did aspirate at the bedside of thin liquids with water on 08/27 in the setting of newly diagnosed acute strokes Now with video swallow and he is aspirating thin liquids but is able to tolerate mildly thickened liquids and pured foods Passed speech evaluation on 08/31. Started on a diet but patient has a very weak voice. Speech therapy on board. Patient is high risk of aspiration. Patient does not want a feeding tube placed. (8) Decubitus ulcer: Plan: Debrided on August 25. Some minor bleeding occurred with heparin drip on August 25 and heparin drip was placed on hold and then was put back on anticoagulation. Currently in hemorrhagic shock due to retroperitoneal bleed. All anticoagulation on hold Continue local care. Appreciate general surgery consultation and recommendations-appreciate bedside debridement Appears blackened in color on 08/29 but Surgeon used silver nitrate to treat the bleeding Wound cx growing Pseudomonas and Cate. Likely to be colonization Wound care on board (9) Chronic anticoagulation: Plan: With Coumadin. He has a mechanical valve and target INR is 2.5-3.5 INR was subtherapeutic at 2 on 08/29 and thus the patient was started on Lovenox bridge. He then had a retroperitoneal hematoma leading to hemorrhagic shock and cardiac arrest. Currently all anticoagulation on hold Will need to start him back on heparin drip soon because of his mechanical valves. Currently heparin drip on hold Dilemma with anticoagulation Without anticoagulation, mechanical valves will clot With anticoagulation, recently had internal bleeding leading to cardiac arrest. Resuming anticoagulation carries bleeding risk. We are in a facility where IR will not be able to stop the bleeding immediately. Transfer to a tertiary care center as an option was offered but the declined. Hemoglobin has been stable. Spoke to and started him on heparin drip on 09/03. Hemoglobin stable on the heparin drip changed CODE STATUS to DNR/DNI 09/02 after a lengthy discussion was held on the phone If he bleeds, she may choose comfort care If he clots, she may choose comfort care Palliative care on board At some point in the near future, he will need to be bridged to start Coumadin p.o. which will be the next challenge. Will start Coumadin p.o. once able to take p.o. reliably. I will address goals of care again tomorrow since patient requested some time to think about decisions. (10) Uncontrolled diabetes mellitus with hyperglycemia: Plan: Type 2 diabetes. His hemoglobin A1c is severely elevated at 11.0% Patient's reports that he was started on Lantus 60 units at bedtime but she only gave it to him once and he became significantly hypoglycemic and delirious and she has been fearful to give it ever since. She does give him occasional NovoLog during the day with meals when his blood sugar is elevated Currently on sliding scale coverage and basal insulin therapy with minimal doses as he has been mostly n.p.o Appreciate nurses educator counseling. Diabetes counselor concerned about poor oral intake. Per , he does not like the pured diet and thus is not eating enough. 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 Hold aspirin, Coumadin, all anticoagulation and all antiplatelet agents Resume statin at a later time if and when swallowing safely (12) Hypertension: Plan: Continue holding home amlodipine,clonidine, furosemide, carvedilol (13) Gout: Plan: Hold home allopurinol (14) BPH w urinary obs/LUTS: Plan: Davis catheter in place (15) Hypokalemia: Plan: Follow BMP and magnesium (16) History of aortic valve replacement with metallic valve: Plan: Noted, also with repair of aortic aneurysm at that time (17) Hyperlipidemia: Plan: Holding statin but would resume at high intensity dose due to strokes (18) Peripheral neuropathy: Plan: With chronic pain, takes pregabalin, gabapentin, and oxycodone as needed Would not combine gabapentin with Lyrica Can take oxycodone as needed but this does make him drowsy Plan 09/02: declined transfer to a tertiary facility. She changed his CODE STATUS to DNR/DNI. If his condition declines, she will choose comfort measures. 09/03: Heparin drip resumed cautiously after speaking to . 09/05: Patient does not want feeding tube Admission and Anticipated Discharge Date Admission Date: August 23, 2023 Subjective I had a conversation with the patient today. Even though he is not able to speak as his voice is too weak, he is able to communicate with facial expressions and gestures. He tells me that he would never want to live in a fpc. He does not want a feeding tube either. I explained to him that because of his general condition, he is most likely going to end up in a fpc. When I asked him if he would rather want to switch to comfort measures only, he did not give me an answer. He stated that he would want to think about it. Review of Systems Review of Systems: All systems reviewed & are unremarkable except as noted in Subjective Physical Exam Physical Exam: General: Awake. Voice is very weak.. Heart: S1, S2/regular rate and rhythm, no murmur rubs or gallops Lungs: Clear to auscultation bilaterally. Normal effort Abdomen: Soft/nontender/nondistended. No hepatosplenomegaly Extremities: No clubbing/cyanosis. 1+ pitting bilateral edema Behavior: Appropriate, cooperative Results & Data Results & Data Vital Signs (Past 12 Hours) Vital Signs Temp Pulse Pulse Resp BP Pulse Ox O2 Del Method 09/07/23 08:00 84 09/07/23 08:00 36.9 C 69 22 142/89 H 98 Room Air 09/07/23 03:16 36.9 C 77 24 149/94 H 98 Room Air 09/07/23 03:15 84 15 97 O2 Flow Rate 09/07/23 08:00 09/07/23 08:00 09/07/23 03:16 09/07/23 03:15 2 Laboratory Results Abnormal lab results 09/06/23 09/07/23 09/07/23 Range/Units 19:57 05:34 11:35 WBC 11.78 H (4.8-10.8) K/ul RBC 3.67 L (4.70-6.10) M/uL Hgb 10.2 L (14.0-18.0) g/dl Hct 31.1 L (42.0-52.0) % RDW Std Deviation 54.9 H (36.4-46.3) fL RDW Coeff of Malika 18.3 H (11.5-14.5) % Potassium 3.2 L (3.5-5.1) mmol/L Carbon Dioxide 34 H (21-32) mmol/L BUN/Creatinine Ratio 21.2 H (10-20) Glucose 136 H (70-99(Fasting)) mg/dl POC Glucose 104 H 138 H (70-99) mg/dl Calcium 7.8 L (8.6-10.3) mg/dl Diagnostic Findings Abnormal lab results 09/06/23 09/07/23 09/07/23 Range/Units 19:57 05:34 11:35 WBC 11.78 H (4.8-10.8) K/ul RBC 3.67 L (4.70-6.10) M/uL Hgb 10.2 L (14.0-18.0) g/dl Hct 31.1 L (42.0-52.0) % RDW Std Deviation 54.9 H (36.4-46.3) fL RDW Coeff of Malika 18.3 H (11.5-14.5) % Potassium 3.2 L (3.5-5.1) mmol/L Carbon Dioxide 34 H (21-32) mmol/L BUN/Creatinine Ratio 21.2 H (10-20) Glucose 136 H (70-99(Fasting)) mg/dl POC Glucose 104 H 138 H (70-99) mg/dl Calcium 7.8 L (8.6-10.3) mg/dl PG Care Time/CCT Total # of Minutes Spent Total Time Spent with Patient: Total time spent is greater than 50% in coordination of care (as documented) at patient's floor/unit and/or counseling patient: Coding Level of Care Code 93877 SUB INP/OBS CARE 2/35MIN Diagnoses Cardiac arrest I46.9 Acute metabolic encephalopathy G93.41 Bacteremia R78.81 Acute CVA (cerebrovascular accident) I63.9 Atrial fibrillation I48.91 Respiratory failure J96.00 Chronicity: acute Respiratory failure complication: unspecified whether with hypoxia or hypercapnia Aspiration pneumonia of both lower lobes J69.0 Decubitus ulcer L89.90 Chronic anticoagulation Z79.01 Uncontrolled diabetes mellitus with hyperglycemia E11.65 History of stroke Z86.73 Hypertension I10 Gout M10.9 BPH w urinary obs/LUTS N40.1; N13.8 Hypokalemia E87.6 History of aortic valve replacement with metallic valve Z95.4 Hyperlipidemia E78.5 Peripheral neuropathy G62.9 (6) Respiratory failure Chronicity: acute Respiratory failure complication: unspecified whether with hypoxia or hypercapnia Qualified Code(s): J96.00 - Acute respiratory failure, unspecified whether with hypoxia or hypercapnia
[2023-09-08 07:27] LABS: Hematocrit (blood only) 30.2 % (42.0-52.0); Mean Corpuscular Hemoglobin 27.8 pg (25.0-34.0); Mean Corpuscular Hgb Conc 33.1 g/dL (32.0-36.0); Mean Corpuscular Volume 83.9 fL (80.0-100.0); Mean Platelet Volume 9.8 fL (9.4-12.4); Platelet Count 197 K/uL (130-400); RDW Coefficient of Variation 17.8 % (11.5-14.5); RDW Standard Deviation 53.3 fL (36.4-46.3); White Blood Count 10.54 K/ul (4.8-10.8)
[2023-09-08 07:52] LABS: BUN Creatinine Ratio 21.3 (10-20); Calcium 7.7 mg/dl (8.6-10.3); Creatinine Clr Calc Pharmacy 163.4 ml/min; Est GFR (African American) 127.6 ml/min; Est GFR (Non-African American) 110.1 ml/min
--- NOTE | 2023-09-08 08:44 | Electrocardiogram Report ---
Test Reason : Blood Pressure : / mmHG Vent. Rate : 089 BPM Atrial Rate : 093 BPM P-R Int : 000 ms QRS Dur : 150 ms QT Int : 476 ms P-R-T Axes : 000 -66 061 degrees QTc Int : 579 ms RSR' pattern in V1 with PAT Left anterior fascicular block Right bundle branch block Abnormal ECG When compared with ECG of 30-AUG-2023 15:34, No significant change Confirmed by Deng Valdez ([id number]) on 09/08/2023 8:44:22 AM Referred By: REFERRED SELF Confirmed By:Deng Valdez
[2023-09-08] MEDS: POTASSIUM CHLORIDE / WTR 10 MEQ/100 ML PLCT IV SCH (09:19)
[2023-09-08] MEDS: POTASSIUM CHLORIDE CRTAB 20 MEQ TABCR PO STA (09:23)
[2023-09-08] MEDS: POTASSIUM CHLORIDE 20 MEQ/15 ML UDC PO STA (10:27)
--- NOTE | 2023-09-08 13:45 | Hospitalist Progress Note ---
Date of Service September 08, 2023 Assessment & Plan (1) Cardiac arrest: Plan: First cardiac arrest was outside of the hospital. This was secondary to septic shock. Extubated on 08/24, off of pressors. Patient recovered from it and was transferred out of the ICU. Still on treatment for septicemia. Second cardiac arrest was on 08/29, secondary to hemorrhagic shock from retroperitoneal and intramuscular bleed. Anticoagulation has been held Patient received 2 units PRBC, protamine and FFP on 08/29, 2 more units PRBC on 08/30. 2 more units PRBC on 09/01. Hemoglobin stable Heparin drip started 09/03. Hemoglobin stable on it confirmed DNR/DNI status (2) Acute metabolic encephalopathy: Plan: Started around 08/25 as per patient's but worsened overnight on 08/26 and 08/27 with increased weakness, decreased responsiveness, mostly nonverbal Lactate elevated but otherwise procalcitonin trending downward, renal failure is resolved, some hypokalemia but not severe, sepsis is improving, afebrile Initially thought could be withdrawal from not receiving home Lyrica, gabapentin, or oxycodone CT head negative, but MRI brain on 08/27 showed multiple acute strokes-likely culprit Treating strokes Continue antibiotic therapy for bacteremia (3) Bacteremia: Plan: With septicemia and septic shock-febrile, with leukocytosis, septic shock and PEA arrest on arrival Aerococcus viridans and Proteus isolated in blood cultures. There is also coagulase-negative Staphylococcus which is likely a contaminant. His urine culture also grew Proteus initially and again on 08/27 Aerococcus is also most commonly a organism as per ID. Urine is most likely source but there is also a sacral wound. Sacral wound growing Pseudomonas and Cate, likely colonization Appreciate ID consultation DEO is indicated given multiple embolic appearing strokes-could be septic emboli. DEO was being planned 08/29. However the patient went into cardiac arrest and the procedure was postponed. Currently the patient is on ceftriaxone, vancomycin per ID recommendations Repeat blood cultures on 08/25, 08/27 and 08/29 remain no growth to date Repeat urine culture on 08/27 with Proteus despite ceftriaxone Urology did cystoscopy and left ureteral stent placement 08/30 Continue vancomycin for coverage for the Aerococcus Continue ceftriaxone for Proteus Follow CBC, CMP Reached out to Dr. German (who was supposed to do the DEO initially on 08/29) today regarding plans for DEO. He directed me to contact weeder thinner on service on Sunday 09/10. The patient needs a DEO to determine the duration of the antibiotic, per ID. (4) Acute CVA (cerebrovascular accident): Plan: Brain MRI ordered on 08/27 due to ongoing expressive aphasia and metabolic encephalopathy, found multiple acute strokes-2 subcentimeter in right frontal and parietal lobes, 2 additional questionable punctate acute infarcts in left occipital and left cerebellar hemisphere He was only off of anticoagulation for 1-2 days at the most during this hospitalization after his heparin drip was discontinued for sacral wound bleeding-heparin drip was resumed but due to compatibility issues and poor IV access, was switched to Lovenox SQ 1 mg/kg twice daily. Seems less likely to be cardioembolic from clot, however could be septic emboli from endocarditis Could be from CPR/resuscitation and aortic arch plaque rupture? Dysphagia improved and right-sided weakness was improving. He had a video swallow on 08/28-able to advance diet to mildly thickened liquids and pured food Holding statin due to daptomycin therapy and also patient not able to take p.o. safely Speech therapy consulted again after the second cardiac arrest Carotid Dopplers negative Continue neuro checks and stroke scale Lipid panel with very low cholesterol, hemoglobin A1c severely elevated at 11.0%-he is not on any diabetes medications-diabetes control addressed Neurology consult placed-thinks strokes due to sepsis, thinks that aspirin is not necessary but patient was on aspirin prior to admission for his previous cardiac issues so was continued. Currently held due to retroperitoneal bleed and hemorrhagic shock. Plan for DEO is being held for the time being due to patient's critical condition. Patient is at risk for further strokes. Patient had bacteremia, DEO not done yet. Not sure if he has valvular vegetations. If patient's condition gets worse, wants him to be made comfort care. Palliative care on board (5) Atrial fibrillation: Plan: Developed August 25 p.m. and is new onset for patient Heparin drip was started but subsequently discontinued due to bleeding from the freshly debrided sacral decubitus. Was switched to therapeutic Lovenox He was treated for Coumadin toxicity with parenteral vitamin K on August 25, and INR was subtherapeutic Coumadin 7.5 mg was administered x 1 on 08/26 but then held due to NPO status--> resumed 08/29 as now able to take po Was started on Lovenox SQ 100 Mg every 12 hours for bridging On 08/29, had hemorrhagic shock leading to PEA arrest All anticoagulation was held due to retroperitoneal bleed and hemorrhagic shock. Resumed heparin drip 09/03 without bolus. Will start Coumadin today 09/07 Now on metoprolol 25 mg p.o. twice daily Monitor on telemetry (6) Respiratory failure: Plan: Acute hypoxic respiratory failure. He was extubated on the morning of August 24. Resolved. Reintubated as part of code on 08/29. Now extubated 08/31. (7) Aspiration pneumonia of both lower lobes: Plan: Suspected aspiration pneumonia in both lower lobes on admission but repeat chest x-ray is now clear. No need for antibiotic coverage for pneumonia at this point speech therapy following as he did aspirate at the bedside of thin liquids with water on 08/27 in the setting of newly diagnosed acute strokes Now with video swallow and he is aspirating thin liquids but is able to tolerate mildly thickened liquids and pured foods Passed speech evaluation on 08/31. Started on a diet but patient has a very weak voice. Speech therapy on board. Patient is high risk of aspiration. Patient does not want a feeding tube placed. (8) Decubitus ulcer: Plan: Debrided on August 25. Some minor bleeding occurred with heparin drip on August 25 and heparin drip was placed on hold and then was put back on anticoagulation. Currently in hemorrhagic shock due to retroperitoneal bleed. All anticoagulation on hold Continue local care. Appreciate general surgery consultation and recommendations-appreciate bedside debridement Appears blackened in color on 08/29 but Surgeon used silver nitrate to treat the bleeding Wound cx growing Pseudomonas and Cate. Likely to be colonization Wound care on board (9) Chronic anticoagulation: Plan: With Coumadin. He has a mechanical valve and target INR is 2.5-3.5 INR was subtherapeutic at 2 on 08/29 and thus the patient was started on Lovenox bridge. He then had a retroperitoneal hematoma leading to hemorrhagic shock and cardiac arrest. Currently all anticoagulation on hold Will need to start him back on heparin drip soon because of his mechanical valves. Currently heparin drip on hold Dilemma with anticoagulation Without anticoagulation, mechanical valves will clot With anticoagulation, recently had internal bleeding leading to cardiac arrest. Resuming anticoagulation carries bleeding risk. We are in a facility where IR will not be able to stop the bleeding immediately. Transfer to a tertiary care center as an option was offered but the declined. Hemoglobin has been stable. Spoke to and started him on heparin drip on 09/03. Hemoglobin stable on the heparin drip changed CODE STATUS to DNR/DNI 09/02 after a lengthy discussion was held on the phone If he bleeds, she may choose comfort care If he clots, she may choose comfort care Palliative care on board Decided to start the patient on Coumadin home dose today. Patient did not decide on comfort care. Will monitor INR, H&H closely. (10) Uncontrolled diabetes mellitus with hyperglycemia: Plan: Type 2 diabetes. His hemoglobin A1c is severely elevated at 11.0% Patient's reports that he was started on Lantus 60 units at bedtime but she only gave it to him once and he became significantly hypoglycemic and delirious and she has been fearful to give it ever since. She does give him occasional NovoLog during the day with meals when his blood sugar is elevated Currently on sliding scale coverage and basal insulin therapy with minimal doses as he has been mostly n.p.o Appreciate acquisition professional counseling. Diabetes counselor concerned about poor oral intake. Per , he does not like the pured diet and thus is not eating enough. 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 On amlodipine (13) Gout: Plan: Hold home allopurinol (14) BPH w urinary obs/LUTS: Plan: Davis catheter in place (15) Hypokalemia: Plan: Follow BMP and magnesium (16) History of aortic valve replacement with metallic valve: Plan: Noted, also with repair of aortic aneurysm at that time (17) Hyperlipidemia: Plan: Resume statin (18) Peripheral neuropathy: Plan: With chronic pain, takes pregabalin, gabapentin, and oxycodone as needed Would not combine gabapentin with Lyrica Can take oxycodone as needed but this does make him drowsy Plan 09/02: declined transfer to a tertiary facility. She changed his CODE STATUS to DNR/DNI. If his condition declines, she will choose comfort measures. 09/03: Heparin drip resumed cautiously after speaking to . 09/05: Patient does not want feeding tube 09/07: Starting Coumadin Admission and Anticipated Discharge Date Admission Date: August 23, 2023 Subjective Patient is not ready to make any drastic decisions. He is okay with starting Coumadin today. Review of Systems Review of Systems: All systems reviewed & are unremarkable except as noted in Subjective Physical Exam Physical Exam: General: Awake. His voice is stronger today. Heart: S1, S2/regular rate and rhythm, no murmur rubs or gallops Lungs: Clear to auscultation bilaterally. Normal effort Abdomen: Soft/nontender/nondistended. No hepatosplenomegaly Extremities: No clubbing/cyanosis. 1+ pitting bilateral edema Behavior: Appropriate, cooperative Results & Data Results & Data Vital Signs (Past 12 Hours) Vital Signs Temp Pulse Pulse Resp BP Pulse Ox O2 Del Method 09/08/23 11:08 36.8 C 94 H 22 164/104 H 95 Room Air 09/08/23 07:45 78 09/08/23 07:45 Room Air 09/08/23 07:13 36.6 C 89 24 156/97 H 96 Room Air 09/08/23 03:04 37.1 C 77 22 143/94 H 95 Room Air Laboratory Results Abnormal lab results 09/07/23 09/07/23 09/08/23 Range/Units 16:16 20:24 06:25 RBC 3.60 L (4.70-6.10) M/uL Hgb 10.0 L (14.0-18.0) g/dl Hct 30.2 L (42.0-52.0) % RDW Std Deviation 53.3 H (36.4-46.3) fL RDW Coeff of Malika 17.8 H (11.5-14.5) % Potassium 3.0 L (3.5-5.1) mmol/L Carbon Dioxide 34 H (21-32) mmol/L BUN/Creatinine Ratio 21.3 H (10-20) Glucose 134 H (70-99(Fasting)) mg/dl POC Glucose 127 H 171 H (70-99) mg/dl Calcium 7.7 L (8.6-10.3) mg/dl Random Vancomycin (10-20) mcg/ml 09/08/23 09/08/23 09/08/23 Range/Units 07:20 09:06 11:19 RBC (4.70-6.10) M/uL Hgb (14.0-18.0) g/dl Hct (42.0-52.0) % RDW Std Deviation (36.4-46.3) fL RDW Coeff of Malika (11.5-14.5) % Potassium (3.5-5.1) mmol/L Carbon Dioxide (21-32) mmol/L BUN/Creatinine Ratio (10-20) Glucose (70-99(Fasting)) mg/dl POC Glucose 154 H 163 H (70-99) mg/dl Calcium (8.6-10.3) mg/dl Random Vancomycin 21.2 H (10-20) mcg/ml PG Care Time/CCT Total # of Minutes Spent Total Time Spent with Patient: Total time spent is greater than 50% in coordination of care (as documented) at patient's floor/unit and/or counseling patient: Coding Level of Care Code 69179 SUB INP/OBS CARE 2/35MIN Diagnoses Cardiac arrest I46.9 Acute metabolic encephalopathy G93.41 Bacteremia R78.81 Acute CVA (cerebrovascular accident) I63.9 Atrial fibrillation I48.91 Respiratory failure J96.00 Chronicity: acute Respiratory failure complication: unspecified whether with hypoxia or hypercapnia Aspiration pneumonia of both lower lobes J69.0 Decubitus ulcer L89.90 Chronic anticoagulation Z79.01 Uncontrolled diabetes mellitus with hyperglycemia E11.65 History of stroke Z86.73 Hypertension I10 Gout M10.9 BPH w urinary obs/LUTS N40.1; N13.8 Hypokalemia E87.6 History of aortic valve replacement with metallic valve Z95.4 Hyperlipidemia E78.5 Peripheral neuropathy G62.9 (6) Respiratory failure Chronicity: acute Respiratory failure complication: unspecified whether with hypoxia or hypercapnia Qualified Code(s): J96.00 - Acute respiratory failure, unspecified whether with hypoxia or hypercapnia
[2023-09-08] MEDS ORDERED: WARFARIN SOD 6 MG TAB PO SCH (16:00)
[2023-09-08] MEDS: WARFARIN SOD 5 MG TAB PO SCH (16:04)
--- NOTE | 2023-09-08 21:16 | Pharmacy Report ---
Pharmacy PK ABX Note - Date of Service September 08, 2023 - Assessment and Plan Assessment 09/07: * Vanc level 21.2 mcg/mL Today. SCr continues to be stable. Current plan for 6 weeks of treatment if no DEO performed (through 10/05). 09/04: * Day #5 of resumed vancomycin therapy. Remains on ceftriaxone as well. * Vanc level 19.7 mcg/mL today. Kidney function stabilized. Leukocytosis also improving. DEO remains on hold. 09/02: * Day #3 of resumed vancomycin therapy. Remains on ceftriaxone as well. * Vanc level decreased to 18.9 mcg/mL today. Kidney function continues to improve. Leukocytosis also improving. 09/01: * Day #2 of resumed Vancomycin therapy. Patient also on ceftriaxone. * Level returned today at 19.7 mcg/mL which is therapeutic but at the upper limit of normal. AUC monitoring software does predict this as a therapeutic dose with AUC/JANICE of 523. * Urine output was significant yesterday but patient is receiving Lasix IV. However, SCr has starting trending back down to normal, was 1.05 early this AM and then 0.83 on repeat. * Therefore, will continue current regimen with thought that trough level will start to trend down and not become supratherapeutic. Due to concern for toxicity, will order another level tomorrow prior to the 5th dose which will represent true steady state (to a degree with changing renal function). 08/31: * vancomycin was d/c'd yesterday afternoon and daptomycin resumed. Today, ID wished to switch back to vancomycin as we have susceptibilities for the aerococcus for vancomycin but are unable to obtain this for dapto. * Patient's scr did increase again today and urine output remains low. Will proceed with caution dosing and get another level tomorrow. * Last dose of vancomycin was 08/30 ~ 0500 and last dose of dapto was 08/30 @ 1700. Given this and renal function concerns, will not re-load and start with maintenance dosing. 08/30: * 57 year old M receiving vancomycin and cefepime for treatment of bacteremia, UTI and pulmonary sources. Patient is post cardiac arrest. Pertinent microbiologic data includes: urine culture growing proteus mirabilis and blood cx growing proteus mirabilis and aerococcus viridans. CT abd/pelvis showing left obstructing uretal stone. Scr increased somewhat since yesterday. Will monitor the transiency of this in the setting of acute clinical change. Based on the rise in scr and random level this morning will decrease maintenance dose. Plan Vancomycin * Current regimen: 1000 mg IV every 12 hours * Random level obtained 09/08/23 resulted as 21.2 mcg/mL. This is predicted to achieve target AUC/JANICE of 400-600 mg/L.hr * Predicted AUC at steady state: 504 mg/L.hr * Continue 1000 mg IV every 12 hours * Repeat random level currently not ordered, will obtain in 3-4 days if SCr remains stable Ceftriaxone * 2000 mg IV every 24 hours Pharmacy will continue to follow and will adjust dose/frequency as necessary. Thank you. Pharmacy has transitioned to AUC monitoring for vancomycin. AUC/JANICE is the preferred PK/PD target and is associated with decreased risk of nephrotoxicity compared to traditional trough targets.
[2023-09-08] MEDS: cefTRIAXone SODIUM 2,000 MG/50 ML BAG IV SCH (22:25)
[2023-09-09 05:38] LABS: Hematocrit (blood only) 30.8 % (42.0-52.0); Mean Corpuscular Hemoglobin 27.5 pg (25.0-34.0); Mean Corpuscular Hgb Conc 32.5 g/dL (32.0-36.0); Mean Corpuscular Volume 84.8 fL (80.0-100.0); Mean Platelet Volume 9.6 fL (9.4-12.4); Platelet Count 186 K/uL (130-400); RDW Coefficient of Variation 17.7 % (11.5-14.5); RDW Standard Deviation 54.3 fL (36.4-46.3); Red Blood Count 3.63 M/uL (4.70-6.10); White Blood Count 9.29 K/ul (4.8-10.8)
[2023-09-09 05:49] LABS: INR 1.2 (0.9-1.1); Prothrombin Time 12.4 Seconds (9.0-12.0)
[2023-09-09 06:06] LABS: BUN Creatinine Ratio 17.5 (10-20); Calcium 7.9 mg/dl (8.6-10.3); Creatinine Clr Calc Pharmacy 158.2 ml/min; Est GFR (African American) 125.9 ml/min; Est GFR (Non-African American) 108.6 ml/min; Potassium 3.4 mmol/L (3.5-5.1)
[2023-09-09] MEDS: ATORVASTATIN 40 MG TAB PO SCH (08:01)
[2023-09-09] MEDS: POTASSIUM CHLORIDE 20 MEQ/15 ML UDC PO STA (09:14)
--- NOTE | 2023-09-09 11:23 | Hospitalist Progress Note ---
Date of Service September 09, 2023 Assessment & Plan (1) Cardiac arrest: Plan: First cardiac arrest was outside of the hospital. This was secondary to septic shock. Extubated on 08/24, off of pressors. Patient recovered from it and was transferred out of the ICU. Still on treatment for septicemia. Second cardiac arrest was on 08/29, secondary to hemorrhagic shock from retroperitoneal and intramuscular bleed. Anticoagulation has been held Patient received 2 units PRBC, protamine and FFP on 08/29, 2 more units PRBC on 08/30. 2 more units PRBC on 09/01. Hemoglobin stable Heparin drip started 09/03. Hemoglobin stable on it Now on Coumadin since 09/07 confirmed DNR/DNI status (2) Acute metabolic encephalopathy: Plan: Started around 08/25 as per patient's but worsened overnight on 08/26 and 08/27 with increased weakness, decreased responsiveness, mostly nonverbal Lactate elevated but otherwise procalcitonin trending downward, renal failure is resolved, some hypokalemia but not severe, sepsis is improving, afebrile Initially thought could be withdrawal from not receiving home Lyrica, gabapentin, or oxycodone CT head negative, but MRI brain on 08/27 showed multiple acute strokes-likely culprit Treating strokes Continue antibiotic therapy for bacteremia (3) Bacteremia: Plan: With septicemia and septic shock-febrile, with leukocytosis, septic shock and PEA arrest on arrival Aerococcus viridans and Proteus isolated in blood cultures. There is also coagulase-negative Staphylococcus which is likely a contaminant. His urine culture also grew Proteus initially and again on 08/27 Aerococcus is also most commonly a organism as per ID. Urine is most likely source but there is also a sacral wound. Sacral wound growing Pseudomonas and Cate, likely colonization Appreciate ID consultation DEO is indicated given multiple embolic appearing strokes-could be septic emboli. DEO was being planned 08/29. However the patient went into cardiac arrest and the procedure was postponed. Currently the patient is on ceftriaxone, vancomycin per ID recommendations Repeat blood cultures on 08/25, 08/27 and 08/29 remain no growth to date Repeat urine culture on 08/27 with Proteus despite ceftriaxone Urology did cystoscopy and left ureteral stent placement 08/30 Continue vancomycin for coverage for the Aerococcus Continue ceftriaxone for Proteus Follow CBC, CMP Reached out to Dr. German (who was supposed to do the DEO initially on 08/29) on 09/07 regarding plans for DEO. He directed me to contact carton forming machine adjuster on service on Sunday 09/10. The patient needs a DEO to determine the duration of the antibiotic, per ID. (4) Acute CVA (cerebrovascular accident): Plan: Brain MRI ordered on 08/27 due to ongoing expressive aphasia and metabolic encephalopathy, found multiple acute strokes-2 subcentimeter in right frontal and parietal lobes, 2 additional questionable punctate acute infarcts in left occipital and left cerebellar hemisphere He was only off of anticoagulation for 1-2 days at the most during this hospitalization after his heparin drip was discontinued for sacral wound bleeding-heparin drip was resumed but due to compatibility issues and poor IV access, was switched to Lovenox SQ 1 mg/kg twice daily. Seems less likely to be cardioembolic from clot, however could be septic emboli from endocarditis Could be from CPR/resuscitation and aortic arch plaque rupture? Dysphagia improved and right-sided weakness was improving. He had a video swallow on 08/28-able to advance diet to mildly thickened liquids and pured food Holding statin due to daptomycin therapy and also patient not able to take p.o. safely Speech therapy consulted again after the second cardiac arrest Carotid Dopplers negative Continue neuro checks and stroke scale Lipid panel with very low cholesterol, hemoglobin A1c severely elevated at 11.0%-he is not on any diabetes medications-diabetes control addressed Neurology consult placed-thinks strokes due to sepsis, thinks that aspirin is not necessary but patient was on aspirin prior to admission for his previous cardiac issues so was continued. Currently held due to retroperitoneal bleed and hemorrhagic shock. Plan for DEO is being held for the time being due to patient's critical condition. Patient is at risk for further strokes. Patient had bacteremia, DEO not done yet. Not sure if he has valvular vegetations. If patient's condition gets worse, wants him to be made comfort care. Palliative care on board (5) Atrial fibrillation: Plan: Developed August 25 p.m. and is new onset for patient Heparin drip was started but subsequently discontinued due to bleeding from the freshly debrided sacral decubitus. Was switched to therapeutic Lovenox He was treated for Coumadin toxicity with parenteral vitamin K on August 25, and INR was subtherapeutic Coumadin 7.5 mg was administered x 1 on 08/26 but then held due to NPO status--> resumed 08/29 as now able to take po Was started on Lovenox SQ 100 Mg every 12 hours for bridging On 08/29, had hemorrhagic shock leading to PEA arrest All anticoagulation was held due to retroperitoneal bleed and hemorrhagic shock. Resumed heparin drip 09/03 without bolus. Coumadin started 09/07 Now on metoprolol 25 mg p.o. twice daily Monitor on telemetry (6) Respiratory failure: Plan: Acute hypoxic respiratory failure. He was extubated on the morning of August 24. Resolved. Reintubated as part of code on 08/29. Now extubated 08/31. (7) Aspiration pneumonia of both lower lobes: Plan: Suspected aspiration pneumonia in both lower lobes on admission but repeat chest x-ray is now clear. No need for antibiotic coverage for pneumonia at this point speech therapy following as he did aspirate at the bedside of thin liquids with water on 08/27 in the setting of newly diagnosed acute strokes Now with video swallow and he is aspirating thin liquids but is able to tolerate mildly thickened liquids and pured foods Passed speech evaluation on 08/31. Started on a diet but patient has a very weak voice. Speech therapy on board. Patient is high risk of aspiration. Patient does not want a feeding tube placed. (8) Decubitus ulcer: Plan: Debrided on August 25. Some minor bleeding occurred with heparin drip on August 25 and heparin drip was placed on hold and then was put back on anticoagulation. Currently in hemorrhagic shock due to retroperitoneal bleed. All anticoagulati on on hold Continue local care. Appreciate general surgery consultation and recommendations-appreciate bedside debridement Appears blackened in color on 08/29 but Surgeon used silver nitrate to treat the bleeding Wound cx growing Pseudomonas and Cate. Likely to be colonization Wound care on board (9) Chronic anticoagulation: Plan: With Coumadin. He has a mechanical valve and target INR is 2.5-3.5 INR was subtherapeutic at 2 on 08/29 and thus the patient was started on Lovenox bridge. He then had a retroperitoneal hematoma leading to hemorrhagic shock and cardiac arrest. Currently all anticoagulation on hold Will need to start him back on heparin drip soon because of his mechanical valves. Currently heparin drip on hold Dilemma with anticoagulation Without anticoagulation, mechanical valves will clot With anticoagulation, recently had internal bleeding leading to cardiac arrest. Resuming anticoagulation carries bleeding risk. We are in a facility where IR will not be able to stop the bleeding immediately. Transfer to a tertiary care center as an option was offered but the declined. Hemoglobin has been stable. Spoke to and started him on heparin drip on 09/03. Hemoglobin stable on the heparin drip changed CODE STATUS to DNR/DNI 09/02 after a lengthy discussion was held on the phone If he bleeds, she may choose comfort care If he clots, she may choose comfort care Palliative care on board Decided to start the patient on Coumadin home dose 09/07. Patient did not decide on comfort care. Will monitor INR, H&H closely. So far stable (10) Uncontrolled diabetes mellitus with hyperglycemia: Plan: Type 2 diabetes. His hemoglobin A1c is severely elevated at 11.0% Patient's reports that he was started on Lantus 60 units at bedtime but she only gave it to him once and he became significantly hypoglycemic and delirious and she has been fearful to give it ever since. She does give him occasional NovoLog during the day with meals when his blood sugar is elevated Currently on sliding scale coverage and basal insulin therapy with minimal doses as he has been mostly n.p.o Appreciate clinical nurse educator counseling. Diabetes counselor concerned about poor oral intake. Per , he does not like the pured diet and thus is not eating enough. 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 On amlodipine 10 and metoprolol 25. Resume Lasix 20 mg q. other day (13) Gout: Plan: Hold home allopurinol (14) BPH w urinary obs/LUTS: Plan: Davis catheter in place (15) Hypokalemia: Plan: Follow BMP and magnesium (16) History of aortic valve replacement with metallic valve: Plan: Noted, also with repair of aortic aneurysm at that time (17) Hyperlipidemia: Plan: Resume statin (18) Peripheral neuropathy: Plan: With chronic pain, takes pregabalin, gabapentin, and oxycodone as needed Would not combine gabapentin with Lyrica Can take oxycodone as needed but this does make him drowsy Plan 09/02: declined transfer to a tertiary facility. She changed his CODE STATUS to DNR/DNI. If his condition declines, she will choose comfort measures. 09/03: Heparin drip resumed cautiously after speaking to . 09/05: Patient does not want feeding tube 09/07: Started Coumadin Admission and Anticipated Discharge Date Admission Date: August 23, 2023 Subjective The patient was sleeping when I walked in. He woke up but was still quite drowsy. I spoke to the nurse and asked her to inform me if he remains drowsy and lethargic throughout the day. Review of Systems Review of Systems: Unobtainable due to cognitive status Physical Exam Physical Exam: General: Sleeping, arousable Heart: S1, S2/regular rate and rhythm, no murmur rubs or gallops Lungs: Clear to auscultation bilaterally. Normal effort Abdomen: Soft/nontender/nondistended. No hepatosplenomegaly Extremities: No clubbing/cyanosis. 1+ pitting bilateral edema Behavior: Appropriate, cooperative Results & Data Results & Data Vital Signs (Past 12 Hours) Vital Signs Temp Pulse Pulse Resp BP BP Pulse Ox 09/09/23 07:28 36.6 C 88 30 H 175/94 H 95 09/09/23 03:20 36.8 C 89 19 154/96 H 95 09/09/23 00:00 98 H O2 Del Method 09/09/23 07:28 Room Air 09/09/23 03:20 Room Air 09/09/23 00:00 Laboratory Results Abnormal lab results 09/08/23 09/08/23 09/08/23 Range/Units 09:06 11:19 16:35 RBC (4.70-6.10) M/uL Hgb (14.0-18.0) g/dl Hct (42.0-52.0) % RDW Std Deviation (36.4-46.3) fL RDW Coeff of Malika (11.5-14.5) % PT (9.0-12.0) Seconds INR (0.9-1.1) Sodium (136-145) mmol/L Potassium (3.5-5.1) mmol/L Chloride (98-107) mmol/L Glucose (70-99(Fasting)) mg/dl POC Glucose 163 H 132 H (70-99) mg/dl Calcium (8.6-10.3) mg/dl Random Vancomycin 21.2 H (10-20) mcg/ml 09/08/23 09/09/23 09/09/23 Range/Units 20:29 05:20 07:25 RBC 3.63 L (4.70-6.10) M/uL Hgb 10.0 L (14.0-18.0) g/dl Hct 30.8 L (42.0-52.0) % RDW Std Deviation 54.3 H (36.4-46.3) fL RDW Coeff of Malika 17.7 H (11.5-14.5) % PT 12.4 H (9.0-12.0) Seconds INR 1.2 H (0.9-1.1) Sodium 134 L (136-145) mmol/L Potassium 3.4 L (3.5-5.1) mmol/L Chloride 97 L (98-107) mmol/L Glucose 134 H (70-99(Fasting)) mg/dl POC Glucose 115 H 146 H (70-99) mg/dl Calcium 7.9 L (8.6-10.3) mg/dl Random Vancomycin (10-20) mcg/ml PG Care Time/CCT Total # of Minutes Spent Total Time Spent with Patient: Total time spent is greater than 50% in coordination of care (as documented) at patient's floor/unit and/or counseling patient: Coding Level of Care Code 48099 SUB INP/OBS CARE 2/35MIN Diagnoses Cardiac arrest I46.9 Acute metabolic encephalopathy G93.41 Bacteremia R78.81 Acute CVA (cerebrovascular accident) I63.9 Atrial fibrillation I48.91 Respiratory failure J96.00 Chronicity: acute Respiratory failure complication: unspecified whether with hypoxia or hypercapnia Aspiration pneumonia of both lower lobes J69.0 Decubitus ulcer L89.90 Chronic anticoagulation Z79.01 Uncontrolled diabetes mellitus with hyperglycemia E11.65 History of stroke Z86.73 Hypertension I10 Gout M10.9 BPH w urinary obs/LUTS N40.1; N13.8 Hypokalemia E87.6 History of aortic valve replacement with metallic valve Z95.4 Hyperlipidemia E78.5 Peripheral neuropathy G62.9 (6) Respiratory failure Chronicity: acute Respiratory failure complication: unspecified whether with hypoxia or hypercapnia Qualified Code(s): J96.00 - Acute respiratory failure, unspecified whether with hypoxia or hypercapnia
[2023-09-09] MEDS: FUROSEMIDE 20 MG TAB PO SCH (12:04)
[2023-09-09] MEDS: cloNIDine HCL 0.1 MG TAB PO ONE (16:14)
[2023-09-10 06:42] LABS: Potassium 3.4 mmol/L (3.5-5.1)
[2023-09-10 06:47] LABS: BUN Creatinine Ratio 17.6 (10-20); Creatinine Clr Calc Pharmacy 144.8 ml/min; Est GFR (Non-African American) 105.3 ml/min
[2023-09-10 06:58] LABS: Hematocrit (blood only) 30.4 % (42.0-52.0); Hemoglobin 10.1 g/dl (14.0-18.0); Mean Corpuscular Hgb Conc 33.2 g/dL (32.0-36.0); Mean Corpuscular Volume 84.2 fL (80.0-100.0); Mean Platelet Volume 10.2 fL (9.4-12.4); Platelet Count 181 K/uL (130-400); RDW Coefficient of Variation 17.4 % (11.5-14.5); RDW Standard Deviation 53.2 fL (36.4-46.3); Red Blood Count 3.61 M/uL (4.70-6.10); White Blood Count 8.68 K/ul (4.8-10.8)
[2023-09-10 07:06] LABS: ANTI-Xa, UFH(UnfractionatedHep 0.43 IU/ml (0.3-0.7); INR 1.2 (0.9-1.1); Prothrombin Time 12.6 Seconds (9.0-12.0)
[2023-09-10] MEDS: POTASSIUM CHLORIDE / WTR 10 MEQ/100 ML PLCT IV SCH (07:47)
[2023-09-10 08:07] LABS: Magnesium 1.4 mg/dl (1.7-2.4)
[2023-09-10] MEDS: POTASSIUM CHLORIDE 20 MEQ/15 ML UDC PO STA (08:48)
[2023-09-10] MEDS: MAGNESIUM SULFATE / D5W 1 GM/100 ML BAG IV SCH (08:58)
--- NOTE | 2023-09-10 12:44 | Hospitalist Progress Note ---
Date of Service September 10, 2023 Assessment & Plan (1) Cardiac arrest: Plan: First cardiac arrest was outside of the hospital. This was secondary to septic shock. Extubated on 08/24, off of pressors. Patient recovered from it and was transferred out of the ICU. Still on treatment for septicemia. Second cardiac arrest was on 08/29, secondary to hemorrhagic shock from retroperitoneal and intramuscular bleed. Anticoagulation has been held Patient received 2 units PRBC, protamine and FFP on 08/29, 2 more units PRBC on 08/30. 2 more units PRBC on 09/01. Hemoglobin stable Heparin drip started 09/03. Hemoglobin stable on it Now on Coumadin since 09/07 confirmed DNR/DNI status (2) Acute metabolic encephalopathy: Plan: Started around 08/25 as per patient's but worsened overnight on 08/26 and 08/27 with increased weakness, decreased responsiveness, mostly nonverbal Lactate elevated but otherwise procalcitonin trending downward, renal failure is resolved, some hypokalemia but not severe, sepsis is improving, afebrile Initially thought could be withdrawal from not receiving home Lyrica, gabapentin, or oxycodone CT head negative, but MRI brain on 08/27 showed multiple acute strokes-likely culprit Treating strokes Continue antibiotic therapy for bacteremia (3) Bacteremia: Plan: With septicemia and septic shock-febrile, with leukocytosis, septic shock and PEA arrest on arrival Aerococcus viridans and Proteus isolated in blood cultures. There is also coagulase-negative Staphylococcus which is likely a contaminant. His urine culture also grew Proteus initially and again on 08/27 Aerococcus is also most commonly a organism as per ID. Urine is most likely source but there is also a sacral wound. Sacral wound growing Pseudomonas and Cate, likely colonization Appreciate ID consultation DEO is indicated given multiple embolic appearing strokes-could be septic emboli. DEO was being planned 08/29. However the patient went into cardiac arrest and the procedure was postponed. Currently the patient is on ceftriaxone, vancomycin per ID recommendations Repeat blood cultures on 08/25, 08/27 and 08/29 remain no growth to date Repeat urine culture on 08/27 with Proteus despite ceftriaxone Urology did cystoscopy and left ureteral stent placement 08/30 Continue vancomycin for coverage for the Aerococcus Continue ceftriaxone for Proteus Follow CBC, CMP Reached out to Dr. German (who was supposed to do the DEO initially on 08/29) on 09/07 regarding plans for DEO. He directed me to contact quality control tester on service on Sunday 09/10. The patient needs a DEO to determine the duration of the antibiotic, per ID. (4) Acute CVA (cerebrovascular accident): Plan: Brain MRI ordered on 08/27 due to ongoing expressive aphasia and metabolic encephalopathy, found multiple acute strokes-2 subcentimeter in right frontal and parietal lobes, 2 additional questionable punctate acute infarcts in left occipital and left cerebellar hemisphere He was only off of anticoagulation for 1-2 days at the most during this hospitalization after his heparin drip was discontinued for sacral wound bleeding-heparin drip was resumed but due to compatibility issues and poor IV access, was switched to Lovenox SQ 1 mg/kg twice daily. Seems less likely to be cardioembolic from clot, however could be septic emboli from endocarditis Could be from CPR/resuscitation and aortic arch plaque rupture? Dysphagia improved and right-sided weakness was improving. He had a video swallow on 08/28-able to advance diet to mildly thickened liquids and pured food Holding statin due to daptomycin therapy and also patient not able to take p.o. safely Speech therapy consulted again after the second cardiac arrest Carotid Dopplers negative Continue neuro checks and stroke scale Lipid panel with very low cholesterol, hemoglobin A1c severely elevated at 11.0%-he is not on any diabetes medications-diabetes control addressed Neurology consult placed-thinks strokes due to sepsis, thinks that aspirin is not necessary but patient was on aspirin prior to admission for his previous cardiac issues so was continued. Currently held due to retroperitoneal bleed and hemorrhagic shock. Plan for DEO is being held for the time being due to patient's critical condition. Patient is at risk for further strokes. Patient had bacteremia, DEO not done yet. Not sure if he has valvular vegetations. If patient's condition gets worse, wants him to be made comfort care. Palliative care on board (5) Atrial fibrillation: Plan: Developed August 25 p.m. and is new onset for patient Heparin drip was started but subsequently discontinued due to bleeding from the freshly debrided sacral decubitus. Was switched to therapeutic Lovenox He was treated for Coumadin toxicity with parenteral vitamin K on August 25, and INR was subtherapeutic Coumadin 7.5 mg was administered x 1 on 08/26 but then held due to NPO status--> resumed 08/29 as now able to take po Was started on Lovenox SQ 100 Mg every 12 hours for bridging On 08/29, had hemorrhagic shock leading to PEA arrest All anticoagulation was held due to retroperitoneal bleed and hemorrhagic shock. Resumed heparin drip 09/03 without bolus. Coumadin started 09/07 Now on metoprolol 25 mg p.o. twice daily Monitor on telemetry (6) Respiratory failure: Plan: Acute hypoxic respiratory failure. He was extubated on the morning of August 24. Resolved. Reintubated as part of code on 08/29. Now extubated 08/31. (7) Aspiration pneumonia of both lower lobes: Plan: Suspected aspiration pneumonia in both lower lobes on admission but repeat chest x-ray is now clear. No need for antibiotic coverage for pneumonia at this point speech therapy following as he did aspirate at the bedside of thin liquids with water on 08/27 in the setting of newly diagnosed acute strokes Now with video swallow and he is aspirating thin liquids but is able to tolerate mildly thickened liquids and pured foods Passed speech evaluation on 08/31. Started on a diet but patient has a very weak voice. Speech therapy on board. Patient is high risk of aspiration. Patient does not want a feeding tube placed. (8) Decubitus ulcer: Plan: Debrided on August 25. Some minor bleeding occurred with heparin drip on August 25 and heparin drip was placed on hold and then was put back on anticoagulation. Currently in hemorrhagic shock due to retroperitoneal bleed. All anticoagulati on on hold Continue local care. Appreciate general surgery consultation and recommendations-appreciate bedside debridement Appears blackened in color on 08/29 but Surgeon used silver nitrate to treat the bleeding Wound cx growing Pseudomonas and Cate. Likely to be colonization Wound care on board (9) Chronic anticoagulation: Plan: With Coumadin. He has a mechanical valve and target INR is 2.5-3.5 INR was subtherapeutic at 2 on 08/29 and thus the patient was started on Lovenox bridge. He then had a retroperitoneal hematoma leading to hemorrhagic shock and cardiac arrest. Currently all anticoagulation on hold Will need to start him back on heparin drip soon because of his mechanical valves. Currently heparin drip on hold Dilemma with anticoagulation Without anticoagulation, mechanical valves will clot With anticoagulation, recently had internal bleeding leading to cardiac arrest. Resuming anticoagulation carries bleeding risk. We are in a facility where IR will not be able to stop the bleeding immediately. Transfer to a tertiary care center as an option was offered but the declined. Hemoglobin has been stable. Spoke to and started him on heparin drip on 09/03. Hemoglobin stable on the heparin drip changed CODE STATUS to DNR/DNI 09/02 after a lengthy discussion was held on the phone If he bleeds, she may choose comfort care If he clots, she may choose comfort care Palliative care on board Decided to start the patient on Coumadin home dose 09/07. Patient did not decide on comfort care. Will monitor INR, H&H closely. So far stable (10) Uncontrolled diabetes mellitus with hyperglycemia: Plan: Type 2 diabetes. His hemoglobin A1c is severely elevated at 11.0% Patient's reports that he was started on Lantus 60 units at bedtime but she only gave it to him once and he became significantly hypoglycemic and delirious and she has been fearful to give it ever since. She does give him occasional NovoLog during the day with meals when his blood sugar is elevated Currently on sliding scale coverage and basal insulin therapy with minimal doses as he has been mostly n.p.o Appreciate librarian helper counseling. Diabetes counselor concerned about poor oral intake. Per , he does not like the pured diet and thus is not eating enough. 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 On amlodipine 10 and metoprolol 25. Resumed Lasix 20 mg q. other day (13) Gout: Plan: Hold home allopurinol (14) BPH w urinary obs/LUTS: Plan: Davis catheter in place (15) Hypokalemia: Plan: Follow BMP and magnesium Replete (16) History of aortic valve replacement with metallic valve: Plan: Noted, also with repair of aortic aneurysm at that time (17) Hyperlipidemia: Plan: Resume statin (18) Peripheral neuropathy: Plan: With chronic pain, takes pregabalin, gabapentin, and oxycodone as needed Would not combine gabapentin with Lyrica Can take oxycodone as needed but this does make him drowsy Plan 4/28: declined transfer to a tertiary facility. She changed his CODE STATUS to DNR/DNI. If his condition declines, she will choose comfort measures. 09/03: Heparin drip resumed cautiously after speaking to . 09/05: Patient does not want feeding tube 09/07: Started Coumadin Admission and Anticipated Discharge Date Admission Date: August 23, 2023 Subjective Patient feels well. Denies chest pain or shortness of breath. Had an episode of nonsustained V. tach yesterday. Replating electrolytes today Review of Systems Review of Systems: All systems reviewed & are unremarkable except as noted in Subjective Physical Exam Physical Exam: General: Sleeping, arousable Heart: S1, S2/regular rate and rhythm, no murmur rubs or gallops Lungs: Clear to auscultation bilaterally. Normal effort Abdomen: Soft/nontender/nondistended. No hepatosplenomegaly Extremities: No clubbing/cyanosis. 1+ pitting bilateral edema Behavior: Appropriate, cooperative Results & Data Results & Data Vital Signs (Past 12 Hours) Vital Signs Temp Pulse Pulse Resp BP Pulse Ox O2 Del Method 09/10/23 11:28 36.6 C 83 24 134/97 96 Room Air 09/10/23 07:20 86 09/10/23 07:20 Room Air 09/10/23 07:12 36.4 C L 86 24 132/80 97 Room Air 09/10/23 02:56 36.9 C 93 H 21 141/90 H 96 Room Air 09/10/23 02:08 85 22 98 O2 Flow Rate 09/10/23 11:28 09/10/23 07:20 09/10/23 07:20 09/10/23 07:12 09/10/23 02:56 09/10/23 02:08 2 Laboratory Results Abnormal lab results 09/09/23 09/09/23 09/10/23 Range/Units 16:19 20:17 06:04 RBC 3.61 L (4.70-6.10) M/uL Hgb 10.1 L (14.0-18.0) g/dl Hct 30.4 L (42.0-52.0) % RDW Std Deviation 53.2 H (36.4-46.3) fL RDW Coeff of Malika 17.4 H (11.5-14.5) % PT (9.0-12.0) Seconds INR (0.9-1.1) Sodium 135 L (136-145) mmol/L Potassium 3.4 L (3.5-5.1) mmol/L Chloride 97 L (98-107) mmol/L Carbon Dioxide 33 H (21-32) mmol/L Glucose 137 H (70-99(Fasting)) mg/dl POC Glucose 118 H 147 H (70-99) mg/dl Calcium 8.0 L (8.6-10.3) mg/dl Magnesium 1.4 L (1.7-2.4) mg/dl 09/10/23 09/10/23 09/10/23 Range/Units 06:10 07:26 11:26 RBC (4.70-6.10) M/uL Hgb (14.0-18.0) g/dl Hct (42.0-52.0) % RDW Std Deviation (36.4-46.3) fL RDW Coeff of Malika (11.5-14.5) % PT 12.6 H (9.0-12.0) Seconds INR 1.2 H (0.9-1.1) Sodium (136-145) mmol/L Potassium (3.5-5.1) mmol/L Chloride (98-107) mmol/L Carbon Dioxide (21-32) mmol/L Glucose (70-99(Fasting)) mg/dl POC Glucose 137 H 150 H (70-99) mg/dl Calcium (8.6-10.3) mg/dl Magnesium (1.7-2.4) mg/dl PG Care Time/CCT Total # of Minutes Spent Total Time Spent with Patient: Total time spent is greater than 50% in coordination of care (as documented) at patient's floor/unit and/or counseling patient: Coding Level of Care Code 13045 SUB INP/OBS CARE 2/35MIN Diagnoses Cardiac arrest I46.9 Acute metabolic encephalopathy G93.41 Bacteremia R78.81 Acute CVA (cerebrovascular accident) I63.9 Atrial fibrillation I48.91 Respiratory failure J96.00 Chronicity: acute Respiratory failure complication: unspecified whether with hypoxia or hypercapnia Aspiration pneumonia of both lower lobes J69.0 Decubitus ulcer L89.90 Chronic anticoagulation Z79.01 Uncontrolled diabetes mellitus with hyperglycemia E11.65 History of stroke Z86.73 Hypertension I10 Gout M10.9 BPH w urinary obs/LUTS N40.1; N13.8 Hypokalemia E87.6 History of aortic valve replacement with metallic valve Z95.4 Hyperlipidemia E78.5 Peripheral neuropathy G62.9 (6) Respiratory failure Chronicity: acute Respiratory failure complication: unspecified whether with hypoxia or hypercapnia Qualified Code(s): J96.00 - Acute respiratory failure, unspecified whether with hypoxia or hypercapnia
[2023-09-11 06:56] LABS: Hematocrit (blood only) 30.3 % (42.0-52.0); Hemoglobin 9.9 g/dl (14.0-18.0); Mean Corpuscular Hemoglobin 27.6 pg (25.0-34.0); Mean Corpuscular Hgb Conc 32.7 g/dL (32.0-36.0); Mean Corpuscular Volume 84.4 fL (80.0-100.0); Mean Platelet Volume 9.9 fL (9.4-12.4); Platelet Count 173 K/uL (130-400); RDW Coefficient of Variation 17.2 % (11.5-14.5); RDW Standard Deviation 52.6 fL (36.4-46.3); Red Blood Count 3.59 M/uL (4.70-6.10); White Blood Count 9.19 K/ul (4.8-10.8)
[2023-09-11 07:10] LABS: INR 1.3 (0.9-1.1); Prothrombin Time 13.4 Seconds (9.0-12.0)
[2023-09-11 07:11] LABS: ANTI-Xa, UFH(UnfractionatedHep 0.36 IU/ml (0.3-0.7); BUN Creatinine Ratio 17.4 (10-20); Creatinine Clr Calc Pharmacy 142.7 ml/min; Est GFR (African American) 121.3 ml/min; Est GFR (Non-African American) 104.6 ml/min; Potassium 3.7 mmol/L (3.5-5.1)
[2023-09-11] MEDS: POTASSIUM CHLORIDE CRTAB 20 MEQ TABCR PO STA (13:39)
[2023-09-11] MEDS: POTASSIUM CHLORIDE 20 MEQ/15 ML UDC PO STA (14:02)
[2023-09-11] MEDS ORDERED: ENOXAPARIN 1 MG/KG SC SCH (15:15)
--- NOTE | 2023-09-11 15:22 | Hospitalist Progress Note ---
Date of Service September 11, 2023 Assessment & Plan (1) Cardiac arrest: Plan: First cardiac arrest was outside of the hospital. This was secondary to septic shock. Extubated on 08/24, off of pressors. Patient recovered from it and was transferred out of the ICU. Still on treatment for septicemia. Second cardiac arrest was on 08/29, secondary to hemorrhagic shock from retroperitoneal and intramuscular bleed. Anticoagulation has been held Patient received 2 units PRBC, protamine and FFP on 08/29, 2 more units PRBC on 08/30. 2 more units PRBC on 09/01. Hemoglobin stable Heparin drip started 09/03. Hemoglobin stable on it. Switching to Lovenox today 09/10 as patient lost his IV site. Now on Coumadin since 09/07 confirmed DNR/DNI status (2) Acute metabolic encephalopathy: Plan: Started around 08/25 as per patient's but worsened overnight on 08/26 and 08/27 with increased weakness, decreased responsiveness, mostly nonverbal Lactate elevated but otherwise procalcitonin trending downward, renal failure is resolved, some hypokalemia but not severe, sepsis is improving, afebrile Initially thought could be withdrawal from not receiving home Lyrica, gabapentin, or oxycodone CT head negative, but MRI brain on 08/27 showed multiple acute strokes-likely culprit Treating strokes Continue antibiotic therapy for bacteremia (3) Bacteremia: Plan: With septicemia and septic shock-febrile, with leukocytosis, septic shock and PEA arrest on arrival Aerococcus viridans and Proteus isolated in blood cultures. There is also coagulase-negative Staphylococcus which is likely a contaminant. His urine culture also grew Proteus initially and again on 08/27 Aerococcus is also most commonly a organism as per ID. Urine is most likely source but there is also a sacral wound. Sacral wound growing Pseudomonas and Cate, likely colonization Appreciate ID consultation DEO is indicated given multiple embolic appearing strokes-could be septic emboli. DEO was being planned 08/29. However the patient went into cardiac arrest and the procedure was postponed. Currently the patient is on ceftriaxone, vancomycin per ID recommendations Repeat blood cultures on 08/25, 08/27 and 08/29 remain no growth to date Repeat urine culture on 08/27 with Proteus despite ceftriaxone Urology did cystoscopy and left ureteral stent placement 08/30 Continue vancomycin for coverage for the Aerococcus Continue ceftriaxone for Proteus Follow CBC, CMP Spoke to Dr. Lyman about DEO. He plans to do it tomorrow 09/11. Will keep him n.p.o. postmidnight. Recommended no changes to anticoagulants (4) Acute CVA (cerebrovascular accident): Plan: Brain MRI ordered on 08/27 due to ongoing expressive aphasia and metabolic encephalopathy, found multiple acute strokes-2 subcentimeter in right frontal and parietal lobes, 2 additional questionable punctate acute infarcts in left occipital and left cerebellar hemisphere He was only off of anticoagulation for 1-2 days at the most during this hospitalization after his heparin drip was discontinued for sacral wound bleeding-heparin drip was resumed but due to compatibility issues and poor IV access, was switched to Lovenox SQ 1 mg/kg twice daily. Seems less likely to be cardioembolic from clot, however could be septic emboli from endocarditis Could be from CPR/resuscitation and aortic arch plaque rupture? Dysphagia improved and right-sided weakness was improving. He had a video swallow on 08/28-able to advance diet to mildly thickened liquids and pured food Holding statin due to daptomycin therapy and also patient not able to take p.o. safely Speech therapy consulted again after the second cardiac arrest Carotid Dopplers negative Continue neuro checks and stroke scale Lipid panel with very low cholesterol, hemoglobin A1c severely elevated at 11.0%-he is not on any diabetes medications-diabetes control addressed Neurology consult placed-thinks strokes due to sepsis, thinks that aspirin is not necessary but patient was on aspirin prior to admission for his previous cardiac issues so was continued. Currently held due to retroperitoneal bleed and hemorrhagic shock. Plan for DEO is being held for the time being due to patient's critical condition. Patient is at risk for further strokes. Patient had bacteremia, DEO not done yet. Not sure if he has valvular vegetations. If patient's condition gets worse, wants him to be made comfort care. Palliative care on board (5) Atrial fibrillation: Plan: Developed August 25 p.m. and is new onset for patient Heparin drip was started but subsequently discontinued due to bleeding from the freshly debrided sacral decubitus. Was switched to therapeutic Lovenox He was treated for Coumadin toxicity with parenteral vitamin K on August 25, and INR was subtherapeutic Coumadin 7.5 mg was administered x 1 on 08/26 but then held due to NPO status--> resumed 08/29 as now able to take po Was started on Lovenox SQ 100 Mg every 12 hours for bridging On 08/29, had hemorrhagic shock leading to PEA arrest All anticoagulation was held due to retroperitoneal bleed and hemorrhagic shock. Resumed heparin drip 09/03 without bolus. Coumadin started 09/07. Switched from heparin drip to Lovenox today 09/10 because the patient lost IV site Now on metoprolol 25 mg p.o. twice daily Monitor on telemetry (6) Respiratory failure: Plan: Acute hypoxic respiratory failure. He was extubated on the morning of August 24. Resolved. Reintubated as part of code on 08/29. Now extubated 08/31. (7) Aspiration pneumonia of both lower lobes: Plan: Suspected aspiration pneumonia in both lower lobes on admission but repeat chest x-ray is now clear. No need for antibiotic coverage for pneumonia at this point speech therapy following as he did aspirate at the bedside of thin liquids with water on 08/27 in the setting of newly diagnosed acute strokes Now with video swallow and he is aspirating thin liquids but is able to tolerate mildly thickened liquids and pured foods Passed speech evaluation on 08/31. Started on a diet but patient has a very weak voice. Speech therapy on board. Patient is high risk of aspiration. Patient does not want a feeding tube placed. (8) Decubitus ulcer: Plan: Debrided on August 25. Some minor bleeding occurred with heparin drip on August 25 and heparin drip was placed on hold and then was put back on anticoagulation. Currently in hemorrhagic shock due to retroperitoneal bleed. All anticoagulation on hold Continue local care. Appreciate general surgery consultation and recommendations-appreciate bedside debridement Appears blackened in color on 08/29 but Surgeon used silver nitrate to treat the bleeding Wound cx growing Pseudomonas and Cate. Likely to be colonization Wound care on board (9) Chronic anticoagulation: Plan: With Coumadin. He has a mechanical valve and target INR is 2.5-3.5 INR was subtherapeutic at 2 on 08/29 and thus the patient was started on Lovenox bridge. He then had a retroperitoneal hematoma leading to hemorrhagic shock and cardiac arrest. Currently all anticoagulation on hold Will need to start him back on heparin drip soon because of his mechanical valves. Currently heparin drip on hold Dilemma with anticoagulation Without anticoagulation, mechanical valves will clot With anticoagulation, recently had internal bleeding leading to cardiac arrest. Resuming anticoagulation carries bleeding risk. We are in a facility where IR will not be able to stop the bleeding immediately. Transfer to a tertiary care center as an option was offered but the declined. Hemoglobin has been stable. Spoke to and started him on heparin drip on 09/03. Hemoglobin stable on the heparin drip changed CODE STATUS to DNR/DNI 09/02 after a lengthy discussion was held on the phone If he bleeds, she may choose comfort care If he clots, she may choose comfort care Palliative care on board Decided to start the patient on Coumadin home dose 09/07. Patient did not decide on comfort care. Will monitor INR, H&H closely. So far stable. INR 1.3 today. Patient lost one of the 2 IV sites. Vancomycin cannot be run with IV heparin. IV team tells me that a PICC line cannot be placed as they cannot find any ultrasound-guided vein. Spoke to lvn. It is his first day back on service. He will not be able to place a central line today. He asked me to check back tomorrow. I decided to switch him from IV heparin to Lovenox subcu for today. From a bleeding risk perspective, subcu Lovenox does not offer any increased risk over IV heparin. (10) Uncontrolled diabetes mellitus with hyperglycemia: Plan: Type 2 diabetes. His hemoglobin A1c is severely elevated at 11.0% Patient's reports that he was started on Lantus 60 units at bedtime but she only gave it to him once and he became significantly hypoglycemic and delirious and she has been fearful to give it ever since. 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 Diabetes counselor concerned about poor oral intake. Per , he does not like the pured diet and thus is not eating enough. 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 On amlodipine 10 and metoprolol 25. Resumed Lasix 20 mg q. other day (13) Gout: Plan: Hold home allopurinol (14) BPH w urinary obs/LUTS: Plan: Davis catheter in place (15) Hypokalemia: Plan: Follow BMP and magnesium Replete (16) History of aortic valve replacement with metallic valve: Plan: Noted, also with repair of aortic aneurysm at that time (17) Hyperlipidemia: Plan: Resume statin (18) Peripheral neuropathy: Plan: With chronic pain, takes pregabalin, gabapentin, and oxycodone as needed Would not combine gabapentin with Lyrica Can take oxycodone as needed but this does make him drowsy Plan 09/02: declined transfer to a tertiary facility. She changed his CODE STATUS to DNR/DNI. If his condition declines, she will choose comfort measures. 09/03: Heparin drip resumed cautiously after speaking to . 09/05: Patient does not want feeding tube 09/07: Started Coumadin Admission and Anticipated Discharge Date Admission Date: August 23, 2023 Subjective Patient does not have any new complaints. Denies chest pain or shortness of breath. Review of Systems Review of Systems: All systems reviewed & are unremarkable except as noted in Subjective Physical Exam Physical Exam: General: Sleeping, arousable. Able to speak. Voice is coming back. Heart: S1, S2/regular rate and rhythm, no murmur rubs or gallops Lungs: Clear to auscultation bilaterally. Normal effort Abdomen: Soft/nontender/nondistended. No hepatosplenomegaly Extremities: No clubbing/cyanosis. 1+ pitting bilateral edema Behavior: Appropriate, cooperative Results & Data Results & Data Vital Signs (Past 12 Hours) Vital Signs Temp Pulse Resp BP BP Pulse Ox O2 Del Method 09/11/23 11:32 36.7 C 88 25 H 134/98 95 Room Air 09/11/23 07:45 Room Air 09/11/23 07:11 36.7 C 99 H 22 144/97 H 95 Room Air Laboratory Results Abnormal lab results 09/10/23 09/10/23 09/11/23 Range/Units 16:32 20:36 06:07 RBC 3.59 L (4.70-6.10) M/uL Hgb 9.9 L (14.0-18.0) g/dl Hct 30.3 L (42.0-52.0) % RDW Std Deviation 52.6 H (36.4-46.3) fL RDW Coeff of Malika 17.2 H (11.5-14.5) % PT 13.4 H (9.0-12.0) Seconds INR 1.3 H (0.9-1.1) Sodium 133 L (136-145) mmol/L Chloride 96 L (98-107) mmol/L Carbon Dioxide 33 H (21-32) mmol/L Glucose 144 H (70-99(Fasting)) mg/dl POC Glucose 174 H 159 H (70-99) mg/dl Calcium 8.0 L (8.6-10.3) mg/dl 09/11/23 09/11/23 Range/Units 07:00 11:30 RBC (4.70-6.10) M/uL Hgb (14.0-18.0) g/dl Hct (42.0-52.0) % RDW Std Deviation (36.4-46.3) fL RDW Coeff of Malika (11.5-14.5) % PT (9.0-12.0) Seconds INR (0.9-1.1) Sodium (136-145) mmol/L Chloride (98-107) mmol/L Carbon Dioxide (21-32) mmol/L Glucose (70-99(Fasting)) mg/dl POC Glucose 135 H 154 H (70-99) mg/dl Calcium (8.6-10.3) mg/dl PG Care Time/CCT Total # of Minutes Spent Total Time Spent with Patient: Total time spent is greater than 50% in coordination of care (as documented) at patient's floor/unit and/or counseling patient: Coding Level of Care Code 34371 SUB INP/OBS CARE 2/35MIN Diagnoses Cardiac arrest I46.9 Acute metabolic encephalopathy G93.41 Bacteremia R78.81 Acute CVA (cerebrovascular accident) I63.9 Atrial fibrillation I48.91 Respiratory failure J96.00 Chronicity: acute Respiratory failure complication: unspecified whether with hypoxia or hypercapnia Aspiration pneumonia of both lower lobes J69.0 Decubitus ulcer L89.90 Chronic anticoagulation Z79.01 Uncontrolled diabetes mellitus with hyperglycemia E11.65 History of stroke Z86.73 Hypertension I10 Gout M10.9 BPH w urinary obs/LUTS N40.1; N13.8 Hypokalemia E87.6 History of aortic valve replacement with metallic valve Z95.4 Hyperlipidemia E78.5 Peripheral neuropathy G62.9 (6) Respiratory failure Chronicity: acute Respiratory failure complication: unspecified whether with hypoxia or hypercapnia Qualified Code(s): J96.00 - Acute respiratory failure, unspecified whether with hypoxia or hypercapnia
[2023-09-11] MEDS: MAGNESIUM SULFATE / D5W 1 GM/100 ML BAG IV ONE (16:03)
--- NOTE | 2023-09-11 16:48 | Cardiology Progress Note ---
Date of Service September 11, 2023 Assessment & Plan (1) Prosthetic valve endocarditis: (2) Bacteremia: (3) History of aortic valve replacement with metallic valve: (4) Chronic anticoagulation: (5) History of stroke: Plan ASSESSMENT/PLAN: 1. Prosthetic valve endocarditis: Findings on limited transthoracic echo on 08/29/2023 suggestive of endocarditis with probable vegetation on personal review of the images today. Also, clinically likely embolic events with acute strokes on brain MRI, which could represent septic emboli. Transesophageal echo not likely to slubber frame changer as would recommend at this time to treat for endocarditis as outlined by infectious disease consultation. Transesophageal echo would add potential risk, especially given his tenuous hospital course thus far. Fortunately, blood cultures have cleared. Consider long-term suppressive antibiotics as noted by infectious disease, and would defer to ID specialist in this regard. 2. Mechanical aortic valve: As above. Can repeat transthoracic echo to ensure no compromise of valve function. On anticoagulation for stroke risk reduction. If his embolic events are septic emboli, has increased risk of hemorrhagic conversion but also has risk for thrombotic complication given mechanical valve. 3. Paroxysmal atrial fibrillation: Diagnosed on 08/26/2023 and was rate controlled on ECG at 2300 that day. On anticoagulation therapy chronically for mechanical aortic valve. Can continue beta-magdi. 4. Stroke: As above. 5. Chronic anticoagulation therapy: On warfarin chronically. Has had spontaneous retroperitoneal bleed and hemorrhagic shock on 08/30/2023. Anticoagulation therapy was held and resumed with heparin drip on 09/04/2023 as outlined by hospitalist service. Warfarin was resumed on 09/08/2023. Risk of bleed but also risk of stroke and thrombotic events from mechanical aortic valve and paroxysmal atrial fibrillation. 6. Disposition: Would treat for endocarditis as noted above. Transesophageal echo not likely to offer much in the way of benefit but rather risk as it would not likely slubber frame changer at current time. Discussed with hospitalist, Dr. West. Also discussed endocarditis concerns in general with his via telephone. Please call with any further questions. Recommend that he follow up with his local cardiology and ID when discharged. Admission and Anticipated Discharge Date Admission Date: August 23, 2023 Subjective Patient seen this afternoon. Was contacted earlier today about possible transesophageal echo by hospitalist. He denies chest pain and shortness of breath. He denies any specific pain. He answered questions by shaking his head yes or no. When asked if he could speak, he shook his head yes and when asked direct questions, he was able to verbalize answers. He was alone in his hospital room. Physical Exam Physical Exam: Gen.: No acute distress. Alert. HEENT: Anicteric sclera. Neck: No appreciable JVD. Cardiac: No ventricular heave. Regular. Normal S1. [place] S2. 1/6 systolic murmur. Pulmonary: Clear to auscultation bilaterally without wheezes, rales, or rhonchi. Abdomen: Right lower quadrant tenderness and firmness with ecchymosis. Extremities: 2+ radial pulses bilaterally. 2+ posterior tibialis pulses bilaterally. Trace bilateral lower extremity edema. No cyanosis. Results & Data Vital Signs (Past 12 Hours) Vital Signs Temp Pulse Resp BP BP Pulse Ox O2 Del Method 09/11/23 15:30 36.7 C 89 18 130/96 96 Room Air 09/11/23 11:32 36.7 C 88 25 H 134/98 95 Room Air 09/11/23 07:45 Room Air 09/11/23 07:11 36.7 C 99 H 22 144/97 H 95 Room Air Laboratory Results Laboratory Results - last 24 hr 09/10/23 09/11/23 09/11/23 20:36 06:07 07:00 WBC 9.19 RBC 3.59 L Hgb 9.9 L Hct 30.3 L MCV 84.4 MCH 27.6 MCHC 32.7 RDW Std Deviation 52.6 H RDW Coeff of Malika 17.2 H Plt Count 173 MPV 9.9 PT 13.4 H INR 1.3 H Heparin Anti-Xa, Unfract 0.36 Sodium 133 L Potassium 3.7 Chloride 96 L Carbon Dioxide 33 H Anion Gap 4 BUN 12 Creatinine 0.69 Est Cr Clr Drug Dosing 142.7 Est GFR ( Amer) 121.3 Est GFR (Non-Af Amer) 104.6 BUN/Creatinine Ratio 17.4 Glucose 144 H POC Glucose 159 H 135 H Calcium 8.0 L Magnesium 09/11/23 09/11/23 09/11/23 11:30 14:06 16:23 WBC RBC Hgb Hct MCV MCH MCHC RDW Std Deviation RDW Coeff of Malika Plt Count MPV PT INR Heparin Anti-Xa, Unfract Sodium Potassium Chloride Carbon Dioxide Anion Gap BUN Creatinine Est Cr Clr Drug Dosing Est GFR ( Amer) Est GFR (Non-Af Amer) BUN/Creatinine Ratio Glucose POC Glucose 154 H 140 H Calcium Magnesium 1.9 Diagnostic Findings Telemetry personally reviewed: Sinus rhythm. No arrhythmia today. Brain MRI 08/28/2023: 2 acute infarcts within the right frontal and parietal lobes. 2 additional questionable punctate acute infarcts within the left occipital lobe and left cerebellar hemisphere. Echo images from 08/29/2023 were personally reviewed: Mechanical mitral valve with probable mobile vegetation noted. Labs reviewed from 09/11/2023 and notable for subtherapeutic INR, normal renal function, normal potassium, stable anemia. ECG personally reviewed from 09/05/2023: Sinus rhythm with first-degree AV block and frequent PACs. RBBB. Medications Administered Current Inpatient Medications Albuterol (Albuterol 0.083% Nebu Soln 3 Ml Vial) 2.5 mg NEB Q6H PRN; Protocol PRN Reason: Shortness Of Breath Or Wheezing Stop: 10/01/23 18:22 Last Admin: 09/01/23 18:58 Dose: 2.5 mg Allopurinol (Allopurinol 100 Mg Tab) 100 mg PO QAM [facility] Stop: 09/27/23 08:59 Last Admin: 09/11/23 07:59 Dose: 100 mg Amlodipine Besylate (Amlodipine Besylate 5 Mg Tab) 10 mg PO QAM [facility] Stop: 10/05/23 14:14 Last Admin: 09/11/23 08:00 Dose: 10 mg Aspirin (Aspirin 81 Mg Ectab) 81 mg PO DAILY [facility] Stop: 09/29/23 08:59 Last Admin: 08/30/23 09:34 Dose: 81 mg Atorvastatin Calcium (Atorvastatin 40 Mg Tab) 40 mg PO QAM [facility] Stop: 10/09/23 08:59 Last Admin: 09/11/23 07:59 Dose: 40 mg Dextrose (Dextrose 50% 50 Ml Syringe) 25 - 50 ml IV UD PRN; Protocol PRN Reason: Hypoglycemia Protocol Stop: 09/22/23 22:59 Last Admin: 08/24/23 21:02 Dose: 25 ml Enoxaparin Sodium (Enoxaparin 100 Mg/1ml Syr) 100 mg SQ Q12H [facility] Stop: 10/11/23 15:14 Furosemide (Furosemide 20 Mg Tab) 20 mg PO Q2D@0900 [facility] Stop: 10/09/23 11:44 Last Admin: 09/11/23 07:59 Dose: 20 mg Glucagon (Glucagon For Inj 1 Mg Vial) 1 mg IM UD PRN; Protocol PRN Reason: Hypoglycemia Protocol Stop: 09/22/23 22:59 Glucose (Glucose 40% Gel 15 Gm Tube) 15 - 30 gm PO UD PRN; Protocol PRN Reason: Hypoglycemia Protocol Stop: 09/22/23 22:59 Glucose (Glucose 10 Tab/Tube) 4 - 8 tab PO UD PRN; Protocol PRN Reason: Hypoglycemia Protocol Stop: 09/22/23 22:59 Hydromorphone HCl (Hydromorphone Inj 0.5 Mg/0.5 Ml Syr) 0.5 mg IV Q2H PRN PRN Reason: Pain Stop: 09/20/23 02:41 Last Admin: 09/07/23 05:22 Dose: 0.5 mg Vancomycin HCl 1,000 mg/ (Sodium Chloride) 270 mls @ 200 mls/hr IV Q12H [facility] Stop: 09/15/23 12:59 Last Infusion: 09/11/23 15:19 Dose: Infused Ceftriaxone Sodium (Rocephin) 2,000 mg in 50 mls @ 100 mls/hr IV Q24H [facility] Stop: 09/22/23 21:29 Last Infusion: 09/10/23 17:49 Dose: Infused Magnesium Sulfate/Dextrose (Magnesium Sulfate / D5w) 1 gm in 100 mls @ 50 mls/hr IV ONE ONE Stop: 09/11/23 17:20 Last Admin: 09/11/23 16:03 Dose: 50 mls/hr Insulin Aspart (Insulin Aspart Per Unit Charge) 0 units SC ACHS [facility] Stop: 09/28/23 00:00 Last Admin: 09/11/23 12:06 Dose: 1 units Insulin Glargine (Lantus Per Unit Charge) 0 units SC BID [facility]; Protocol Stop: 09/25/23 09:14 Last Admin: 09/11/23 07:59 Dose: Not Given Metoprolol Tartrate (Metoprolol Tartrate 25 Mg Tab) 25 mg PO BID [facility] Stop: 10/05/23 20:59 Last Admin: 09/11/23 07:59 Dose: 25 mg Miscellaneous (Carbohydrates For Hypoglycemia ) 15 - 30 gm PO UD PRN PRN Reason: Hypoglycemia Treatment Stop: 09/22/23 22:59 Miscellaneous Information (Vancomycin Consult Active) 0 each N/A UD PRN PRN Reason: Consult Stop: 10/01/23 12:20 Ondansetron HCl (Ondansetron Inj 2 Mg/Ml 2 Ml Vial) 4 mg IV Q6H PRN PRN Reason: NAUSEA/VOMITING Stop: 09/22/23 22:11 Pantoprazole Sodium (Pantoprazole 40 Mg Tab) 40 mg PO DAILY [facility] Stop: 10/02/23 09:59 Last Admin: 09/11/23 07:59 Dose: 40 mg Thiamine HCl (Thiamine Hcl 100 Mg Tab) 200 mg PO BID [facility] Stop: 10/06/23 20:59 Last Admin: 09/11/23 07:59 Dose: 200 mg Warfarin Sodium (Warfarin Sod 6 Mg Tab) 6 mg PO TuTh@1600 [facility] Stop: 10/08/23 15:59 Warfarin Sodium (Warfarin Sod 5 Mg Tab) 5 mg PO SuMoWeFrSa@1600 [facility] Stop: 10/08/23 15:59 Last Admin: 09/10/23 16:56 Dose: 5 mg PG Care Time/CCT Total # of Minutes Spent Total Time Spent with Patient: Total time spent is greater than 50% in coordination of care (as documented) at patient's floor/unit and/or counseling patient: Coding Level of Care Code 95085 SUB INP/OBS CARE 3/50MIN Diagnoses Prosthetic valve endocarditis T82.6XXA; I38 Bacteremia R78.81 History of aortic valve replacement with metallic valve Z95.4 Chronic anticoagulation Z79.01 History of stroke Z86.73
[2023-09-11] MEDS: ENOXAPARIN 100 MG/1ML SYR SQ SCH (17:02)
--- NOTE | 2023-09-11 22:00 | Communication Note ---
Date of Service: September 11, 2023 I was notified by nursing that Mr. Graham had an ongoing cough and a drop in oxygen saturation. I went to bedside and rhonchi appreciated on auscultation. I called and updated Mr. Graham' on his increased oxygen requirement, she confirmed that he is DNR/DNI status. Chest x-ray obtained and subsequently obtained CT chest which showed evidence of aspiration pneumonia. Clindamycin was added for anaerobic coverage and NPO status updated. Respiratory therapy completed NT suctioning as needed. Later in the night, patient had a reduced oxygen requirement from 12L to 6L.
[2023-09-11] MEDS: FUROSEMIDE INJ 20 MG/2 ML VIAL IV ONE (22:16)
--- NOTE | 2023-09-12 00:46 | CT Scan Report ---
Exam(s): CT CHEST Without Contrast EXAM: CT Chest Without Intravenous Contrast CLINICAL HISTORY: Reason for exam: hypoxia. TECHNIQUE: Axial computed tomography images of the chest without intravenous contrast. CTDI is 23.19 mGy and DLP is 760.88 mGy-cm. Automated exposure control was utilized for the study. A dose lowering technique was utilized adhering to the principles of ALARA. COMPARISON: No relevant prior studies available. FINDINGS: Lungs: Airspace consolidation at the RIGHT lung base, consistent with aspiration pneumonia. Aspirated debris is present in the RIGHT lower lobe bronchus. No mass. Pleural space: Unremarkable. No pneumothorax. No significant effusion. Heart: Cardiomegaly. Prosthetic aortic valve. No significant pericardial effusion. No significant coronary artery calcifications. Bones/joints: Sternotomy wires. Degenerative changes of the spine. No acute fracture. No dislocation. Soft tissues: Unremarkable. Vasculature: Atherosclerotic changes of the aorta. No thoracic aortic aneurysm. Lymph nodes: Unremarkable. No enlarged lymph nodes. Gallbladder and bile ducts: Cholecystectomy. IMPRESSION: Airspace consolidation at the RIGHT lung base, consistent with aspiration pneumonia. Aspirated debris is present in the RIGHT lower lobe bronchus. Electronically signed by: Ayad Mari MD 09/12/23 00:45 AM
[2023-09-12] MEDS: CLINDAMYCIN/D5W 300 MG/50 ML BAG IV SCH (02:46)
[2023-09-12 07:33] LABS: Hematocrit (blood only) 31.3 % (42.0-52.0); Hemoglobin 10.3 g/dl (14.0-18.0); Mean Corpuscular Hemoglobin 27.6 pg (25.0-34.0); Mean Corpuscular Hgb Conc 32.9 g/dL (32.0-36.0); Mean Corpuscular Volume 83.9 fL (80.0-100.0); Mean Platelet Volume 9.9 fL (9.4-12.4); Platelet Count 168 K/uL (130-400); RDW Coefficient of Variation 17.2 % (11.5-14.5); RDW Standard Deviation 53.1 fL (36.4-46.3); Red Blood Count 3.73 M/uL (4.70-6.10); White Blood Count 11.39 K/ul (4.8-10.8)
[2023-09-12 07:37] LABS: INR 1.4 (0.9-1.1); Prothrombin Time 14.4 Seconds (9.0-12.0)
[2023-09-12 07:57] LABS: Calcium 8.2 mg/dl (8.6-10.3); Creatinine Clr Calc Pharmacy 122.4 ml/min; Est GFR (African American) 114.1 ml/min; Est GFR (Non-African American) 98.5 ml/min; Potassium 3.9 mmol/L (3.5-5.1)
[2023-09-12] MEDS ORDERED: Nursing to Pharmacy Communication SCH (08:45)
--- NOTE | 2023-09-12 08:49 | XRay Report ---
XR chest 1V portable CLINICAL HISTORY: cough, hypoxia TECHNIQUE: Single frontal radiograph of the chest was obtained. Comparison: Comparison is made to chest radiograph 09/01/2023 FINDINGS: Median sternotomy wires are seen. The cardiomediastinal silhouette is normal. Lungs are underinflated but clear. No evidence of pleural effusion or pneumothorax. IMPRESSION: No acute abnormalities and in particular no radiographic evidence of pneumonia. ACT 112: Negative or not required by law. Electronically signed by: Aj Shipley M.D. 09/12/2023 8:47 AM
[2023-09-12 09:01] LABS: Adenovirus PCR Not Detected (NotDetected); Bordetella parapertussis PCR Not Detected (NotDetected); Bordetella pertussis PCR Not Detected (NotDetected); Chlamydia pneumoniae PCR Not Detected (NotDetected); Coronavirus 229E PCR Not Detected (NotDetected); Coronavirus CoV-2 (COVID19)PCR Not Detected (NotDetected); Coronavirus HKU1 PCR Not Detected (NotDetected); Coronavirus NL63 PCR Not Detected (NotDetected); Coronavirus OC43PCR Not Detected (NotDetected); Human Metapneumovirus PCR Not Detected (NotDetected); Influenza A PCR Not Detected (NotDetected); Influenza B PCR Not Detected (NotDetected); Mycoplasma pneumoniae PCR Not Detected (NotDetected); Parainfluenza Virus 1 PCR Not Detected (NotDetected); Parainfluenza Virus 2 PCR Not Detected (NotDetected); Parainfluenza Virus 3 PCR Not Detected (NotDetected); Parainfluenza Virus 4 PCR Not Detected (NotDetected); Respiratory Syncytial VirusPCR Not Detected (NotDetected); Rhinovirus/Enterovirus PCR Not Detected (NotDetected)
[2023-09-12] MEDS: SODIUM CHLORIDE 0.9% 1,000 ML IV SCH (10:16)
[2023-09-12] MEDS: INSULIN ASPART PER UNIT CHARGE SC SCH (12:03)
--- NOTE | 2023-09-12 12:40 | Pharmacy Report ---
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 * Repeat BLCXs from 08/29 no growth * Clindamycin added by overnight Hospitalist due to increased oxygen needs, cough and CXR concerning for aspiration * Vanco level drawn today ~10 hrs after last dose = 24.2mcg/mL. Prior doses hung according to schedule. SCr mild increase over last 24 hrs (0.69-->0.8). Current regimen of 1gm Q 12hrs is now predicted to exceed goal AUC/JANICE of 400- 600. Will change dose to 750mg IV Q 12 hrs and delay next dose until 1800 today. F/U chemistry ordered for tomorrow AM. 09/07: * Vanc level 21.2 mcg/mL Today. SCr continues to be stable. Current plan for 6 weeks of treatment if no DEO performed (through 10/05). 09/04: * Day #5 of resumed vancomycin therapy. Remains on ceftriaxone as well. * Vanc level 19.7 mcg/mL today. Kidney function stabilized. Leukocytosis also improving. DEO remains on hold. 09/02: * Day #3 of resumed vancomycin therapy. Remains on ceftriaxone as well. * Vanc level decreased to 18.9 mcg/mL today. Kidney function continues to improve. Leukocytosis also improving. 09/01: * Day #2 of resumed Vancomycin therapy. Patient also on ceftriaxone. * Level returned today at 19.7 mcg/mL which is therapeutic but at the upper limit of normal. AUC monitoring software does predict this as a therapeutic dose with AUC/JANICE of 523. * Urine output was significant yesterday but patient is receiving Lasix IV. However, SCr has starting trending back down to normal, was 1.05 early this AM and then 0.83 on repeat. * Therefore, will continue current regimen with thought that trough level will start to trend down and not become supratherapeutic. Due to concern for toxicity, will order another level tomorrow prior to the 5th dose which will represent true steady state (to a degree with changing renal function). 08/31: * vancomycin was d/c'd yesterday afternoon and daptomycin resumed. Today, ID wished to switch back to vancomycin as we have susceptibilities for the aerococcus for vancomycin but are unable to obtain this for dapto. * Patient's scr did increase again today and urine output remains low. Will proceed with caution dosing and get another level tomorrow. * Last dose of vancomycin was 08/30 ~ 0500 and last dose of dapto was 08/30 @ 1700. Given this and renal function concerns, will not re-load and start with maintenance dosing. 08/30: * 57 year old M receiving vancomycin and cefepime for treatment of bacteremia, UTI and pulmonary sources. Patient is post cardiac arrest. Pertinent microbiologic data includes: urine culture growing proteus mirabilis and blood cx growing proteus mirabilis and aerococcus viridans. CT abd/pelvis showing left obstructing uretal stone. Scr increased somewhat since yesterday. Will monitor the transiency of this in the setting of acute clinical change. Based on the rise in scr and random level this morning will decrease maintenance dose. Plan Vancomycin * Current regimen: 1000 mg IV every 12 hours * Level obtained 09/12/23 @1055 resulted as 24.2 mcg/mL. This is predicted to exceed target AUC/JANICE of 400-600 mg/L.hr * New dose 750 mg IV every 12 hours is predicted to produce AUC/JANICE of ~500 mg/L.hr with ~12% risk of nephrotoxicity * Will recheck SCr w/ AM labs tomorrow. Will likely check level again 09/12 evening or in the AM of 09/13 Ceftriaxone * 2000 mg IV every 24 hours Pharmacy will continue to follow and will adjust dose/frequency as necessary. Thank you. Pharmacy has transitioned to AUC monitoring for vancomycin. AUC/JANICE is the preferred PK/PD target and is associated with decreased risk of nephrotoxicity compared to traditional trough targets.
--- NOTE | 2023-09-12 13:25 | Hospitalist Progress Note ---
Date of Service September 12, 2023 Assessment & Plan (1) Cardiac arrest: Plan: First cardiac arrest was outside of the hospital. This was secondary to septic shock. Extubated on 08/24, off of pressors. Patient recovered from it and was transferred out of the ICU. Still on treatment for septicemia. Second cardiac arrest was on 08/29, secondary to hemorrhagic shock from retroperitoneal and intramuscular bleed. Anticoagulation has been held Patient received 2 units PRBC, protamine and FFP on 08/29, 2 more units PRBC on 08/30. 2 more units PRBC on 09/01. Hemoglobin stable Heparin drip started 09/03. Hemoglobin stable on it. Switching to Lovenox today 09/10 as patient lost his IV site. Now on Coumadin since 09/07 confirmed DNR/DNI status (2) Acute metabolic encephalopathy: Plan: Started around 08/25 as per patient's but worsened overnight on 08/26 and 08/27 with increased weakness, decreased responsiveness, mostly nonverbal Lactate elevated but otherwise procalcitonin trending downward, renal failure is resolved, some hypokalemia but not severe, sepsis is improving, afebrile Initially thought could be withdrawal from not receiving home Lyrica, gabapentin, or oxycodone CT head negative, but MRI brain on 08/27 showed multiple acute strokes-likely culprit Treating strokes Continue antibiotic therapy for bacteremia (3) Bacteremia: Plan: With septicemia and septic shock-febrile, with leukocytosis, septic shock and PEA arrest on arrival Aerococcus viridans and Proteus isolated in blood cultures. There is also coagulase-negative Staphylococcus which is likely a contaminant. His urine culture also grew Proteus initially and again on 08/27 Aerococcus is also most commonly a organism as per ID. Urine is most likely source but there is also a sacral wound. Sacral wound growing Pseudomonas and Cate, likely colonization Appreciate ID consultation DEO is indicated given multiple embolic appearing strokes-could be septic emboli. DEO was being planned 08/29. However the patient went into cardiac arrest and the procedure was postponed. Currently the patient is on ceftriaxone, vancomycin per ID recommendations Repeat blood cultures on 08/25, 08/27 and 08/29 remain no growth to date Repeat urine culture on 08/27 with Proteus despite ceftriaxone Urology did cystoscopy and left ureteral stent placement 08/30 Continue vancomycin for coverage for the Aerococcus Continue ceftriaxone for Proteus Follow [facility], [facility] Cardiology saw him regarding DEO. We decided against DEO as it would not be decisive. Even if the DEO was negative, there is a strong chance that he did have septic embolization leading to his strokes previously. We decided to complete 6 weeks of IV antibiotics (4) Acute CVA (cerebrovascular accident): Plan: Brain MRI ordered on 08/27 due to ongoing expressive aphasia and metabolic encephalopathy, found multiple acute strokes-2 subcentimeter in right frontal and parietal lobes, 2 additional questionable punctate acute infarcts in left occipital and left cerebellar hemisphere He was only off of anticoagulation for 1-2 days at the most during this hospitalization after his heparin drip was discontinued for sacral wound bleeding-heparin drip was resumed but due to compatibility issues and poor IV access, was switched to Lovenox SQ 1 mg/kg twice daily. Seems less likely to be cardioembolic from clot, however could be septic emboli from endocarditis Could be from CPR/resuscitation and aortic arch plaque rupture? Dysphagia improved and right-sided weakness was improving. He had a video swallow on 08/28-able to advance diet to mildly thickened liquids and pured food Holding statin due to daptomycin therapy and also patient not able to take p.o. safely Speech therapy consulted again after the second cardiac arrest Carotid Dopplers negative Continue neuro checks and stroke scale Lipid panel with very low cholesterol, hemoglobin A1c severely elevated at 11.0%-he is not on any diabetes medications-diabetes control addressed Neurology consult placed-thinks strokes due to sepsis, thinks that aspirin is not necessary but patient was on aspirin prior to admission for his previous cardiac issues so was continued. Currently held due to retroperitoneal bleed and hemorrhagic shock. Plan for DEO is being held for the time being due to patient's critical condition. Patient is at risk for further strokes. Patient had bacteremia, DEO not done yet. Not sure if he has valvular vegetations. If patient's condition gets worse, wants him to be made comfort care. Palliative care on board (5) Atrial fibrillation: Plan: Developed August 25 p.m. and is new onset for patient Heparin drip was started but subsequently discontinued due to bleeding from the freshly debrided sacral decubitus. Was switched to therapeutic Lovenox He was treated for Coumadin toxicity with parenteral vitamin K on August 25, and INR was subtherapeutic Coumadin 7.5 mg was administered x 1 on 08/26 but then held due to NPO status--> resumed 08/29 as now able to take po Was started on Lovenox SQ 100 Mg every 12 hours for bridging On 08/29, had hemorrhagic shock leading to PEA arrest All anticoagulation was held due to retroperitoneal bleed and hemorrhagic shock. Resumed heparin drip 09/03 without bolus. Coumadin started 09/07. Switched from heparin drip to Lovenox today 09/10 because the patient lost IV site Now on metoprolol 25 mg p.o. twice daily Monitor on telemetry (6) Respiratory failure: Plan: Acute hypoxic respiratory failure. He was extubated on the morning of August 24. Resolved. Reintubated as part of code on 08/29. Now extubated 08/31. (7) Aspiration pneumonia of both lower lobes: Plan: Suspected aspiration pneumonia in both lower lobes on admission but repeat chest x-ray is now clear. No need for antibiotic coverage for pneumonia at this point speech therapy following as he did aspirate at the bedside of thin liquids with water on 08/27 in the setting of newly diagnosed acute strokes Now with video swallow and he is aspirating thin liquids but is able to tolerate mildly thickened liquids and pured foods Passed speech evaluation on 08/31. Started on a diet but patient has a very weak voice. Speech therapy on board. Patient is high risk of aspiration. Patient does not want a feeding tube placed. On the night of 09/10, the patient aspirated. Had increased oxygen demands. After suctioning, oxygen requirements improved. He is now on clindamycin. He is now NPO. I spoke to the . She is reluctant to switch to comfort care as this would make her feel like she is "giving up on him". She would like to continue as is and let nature take its course. I explained to her that I am not comfortable feeding him today. The plan is to keep him n.p.o. today. She wants him to eat if he wants to eat. And if he aspirates again and dies, will let him go per the . I explained to her that we are essentially prolonging his sufferings. She agrees but it is better than her having the guilt of "giving up on him". When I last spoke to the patient a few days ago, he did not want to make a decision towards comfort care either. He participated in the conversation but when asked the particular question of switching to comfort care, he would fall asleep and not respond. (8) Decubitus ulcer: Plan: Debrided on August 25. Some minor bleeding occurred with heparin drip on August 25 and heparin drip was placed on hold and then was put back on anticoagulation. Currently in hemorrhagic shock due to retroperitoneal bleed. All anticoagulation on hold Continue local care. Appreciate general surgery consultation and recommendations-appreciate bedside debridement Appears blackened in color on 08/29 but Surgeon used silver nitrate to treat the bleeding Wound cx growing Pseudomonas and Cate. Likely to be colonization Wound care on board (9) Chronic anticoagulation: Plan: With Coumadin. He has a mechanical valve and target INR is 2.5-3.5 INR was subtherapeutic at 2 on 08/29 and thus the patient was started on Lovenox bridge. He then had a retroperitoneal hematoma leading to hemorrhagic shock and cardiac arrest. Currently all anticoagulation on hold Will need to start him back on heparin drip soon because of his mechanical valves. Currently heparin drip on hold Dilemma with anticoagulation Without anticoagulation, mechanical valves will clot With anticoagulation, recently had internal bleeding leading to cardiac arrest. Resuming anticoagulation carries bleeding risk. We are in a facility where IR will not be able to stop the bleeding immediately. Transfer to a tertiary care center as an option was offered but the declined. Hemoglobin has been stable. Spoke to and started him on heparin drip on 09/03. Hemoglobin stable on the heparin drip changed CODE STATUS to DNR/DNI 09/02 after a lengthy discussion was held on the phone If he bleeds, she may choose comfort care If he clots, she may choose comfort care Palliative care on board Decided to start the patient on Coumadin home dose 09/07. Patient did not decide on comfort care. Will monitor INR, H&H closely. So far stable. INR 1.4 today. Patient lost one of the 2 IV sites. Vancomycin cannot be run with IV heparin. IV team tells me that a PICC line cannot be placed as they cannot find any ultrasound-guided vein. I decided to switch him from IV heparin to Lovenox subcu. From a bleeding risk perspective, subcu Lovenox does not offer any increased risk over IV heparin. (10) Uncontrolled diabetes mellitus with hyperglycemia: Plan: Type 2 diabetes. His hemoglobin A1c is severely elevated at 11.0% Patient's reports that he was started on Lantus 60 units at bedtime but she only gave it to him once and he became significantly hypoglycemic and delirious and she has been fearful to give it ever since. She does give him occasional NovoLog during the day with meals when his blood sugar is elevated Currently on sliding scale coverage and basal insulin therapy with minimal doses as he has been mostly n.p.o Appreciate nurse informatics educator counseling. Diabetes counselor concerned about poor oral intake. Per , he does not like the pured diet and thus is not eating enough. 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 On amlodipine 10 and metoprolol 25. Resumed Lasix 20 mg q. other day (13) Gout: Plan: Hold home allopurinol (14) BPH w urinary obs/LUTS: Plan: Davis catheter in place (15) Hypokalemia: Plan: Follow BMP and magnesium Replete (16) History of aortic valve replacement with metallic valve: Plan: Noted, also with repair of aortic aneurysm at that time (17) Hyperlipidemia: Plan: Resume statin (18) Peripheral neuropathy: Plan: With chronic pain, takes pregabalin, gabapentin, and oxycodone as needed Would not combine gabapentin with Lyrica Can take oxycodone as needed but this does make him drowsy Plan 09/02: declined transfer to a tertiary facility. She changed his CODE STATUS to DNR/DNI. If his condition declines, she will choose comfort measures. 09/03: Heparin drip resumed cautiously after speaking to . 09/05: Patient does not want feeding tube 09/07: Started Coumadin 09/10: Aspiration Admission and Anticipated Discharge Date Admission Date: August 23, 2023 Subjective Overnight, the patient aspirated. Chest x-ray showed aspiration pneumonia. The patient was made n.p.o. and was started on clindamycin for anaerobic coverage. After suctioning by respiratory therapy, his oxygen needs improved. He is currently on 4 L oxy mask. The patient is drowsy. I spoke to his on the phone. Review of Systems Review of Systems: All systems reviewed & are unremarkable except as noted in Subjective Physical Exam Physical Exam: General: Sleeping, arousable. Weak today. Heart: S1, S2/regular rate and rhythm, no murmur rubs or gallops Lungs: Clear to auscultation bilaterally. Normal effort Abdomen: Soft/nontender/nondistended. No hepatosplenomegaly Extremities: No clubbing/cyanosis. 1+ pitting bilateral edema Behavior: Appropriate, cooperative Results & Data Results & Data Vital Signs (Past 12 Hours) Vital Signs Temp Pulse Pulse Resp BP BP Pulse Ox 09/12/23 12:01 36.5 C 105 H 24 121/81 100 09/12/23 09:51 20 97 09/12/23 08:00 09/12/23 07:57 105 H 09/12/23 07:44 36.6 C 107 H 20 110/84 98 09/12/23 03:26 37.2 C 110 H 27 H 128/97 97 O2 Del Method O2 Flow Rate 09/12/23 12:01 Oxymask 4.0 09/12/23 09:51 Oxymask 4 09/12/23 08:00 Oxymask 4 09/12/23 07:57 09/12/23 07:44 Oxymask 09/12/23 03:26 Oxymask 6 Laboratory Results Abnormal lab results 09/11/23 09/11/23 09/12/23 Range/Units 16:23 20:11 06:43 WBC (4.8-10.8) K/ul RBC (4.70-6.10) M/uL Hgb (14.0-18.0) g/dl Hct (42.0-52.0) % RDW Std Deviation (36.4-46.3) fL RDW Coeff of Malika (11.5-14.5) % PT (9.0-12.0) Seconds INR (0.9-1.1) Sodium (136-145) mmol/L Chloride (98-107) mmol/L Glucose (70-99(Fasting)) mg/dl POC Glucose 140 H 161 H 144 H (70-99) mg/dl Calcium (8.6-10.3) mg/dl Random Vancomycin (10-20) mcg/ml 09/12/23 09/12/23 09/12/23 Range/Units 07:10 10:55 11:57 WBC 11.39 H (4.8-10.8) K/ul RBC 3.73 L (4.70-6.10) M/uL Hgb 10.3 L (14.0-18.0) g/dl Hct 31.3 L (42.0-52.0) % RDW Std Deviation 53.1 H (36.4-46.3) fL RDW Coeff of Malika 17.2 H (11.5-14.5) % PT 14.4 H (9.0-12.0) Seconds INR 1.4 H (0.9-1.1) Sodium 134 L (136-145) mmol/L Chloride 97 L (98-107) mmol/L Glucose 142 H (70-99(Fasting)) mg/dl POC Glucose 124 H (70-99) mg/dl Calcium 8.2 L (8.6-10.3) mg/dl Random Vancomycin 24.2 H (10-20) mcg/ml PG Care Time/CCT Total # of Minutes Spent Total Time Spent with Patient: Total time spent is greater than 50% in coordination of care (as documented) at patient's floor/unit and/or counseling patient: Coding Level of Care Code 52215 SUB INP/OBS CARE 2/35MIN Diagnoses Cardiac arrest I46.9 Acute metabolic encephalopathy G93.41 Bacteremia R78.81 Acute CVA (cerebrovascular accident) I63.9 Atrial fibrillation I48.91 Respiratory failure J96.00 Chronicity: acute Respiratory failure complication: unspecified whether with hypoxia or h ypercapnia Aspiration pneumonia of both lower lobes J69.0 Decubitus ulcer L89.90 Chronic anticoagulation Z79.01 Uncontrolled diabetes mellitus with hyperglycemia E11.65 History of stroke Z86.73 Hypertension I10 Gout M10.9 BPH w urinary obs/LUTS N40.1; N13.8 Hypokalemia E87.6 History of aortic valve replacement with metallic valve Z95.4 Hyperlipidemia E78.5 Peripheral neuropathy G62.9 (6) Respiratory failure Chronicity: acute Respiratory failure complication: unspecified whether with hypoxia or hypercapnia Qualified Code(s): J96.00 - Acute respiratory failure, unspecified whether with hypoxia or hypercapnia
--- NOTE | 2023-09-12 16:51 | XCELERA ---
[id number]
[2023-09-12] MEDS: WARFARIN SOD 6 MG TAB PO SCH (17:17)
[2023-09-12] MEDS: VANCOMYCIN HCL 750 MG in SODIUM CHLORIDE 0.9% 250 ML IV SCH (18:20)
[2023-09-13 07:46] LABS: Hemoglobin 8.7 g/dl (14.0-18.0); Mean Corpuscular Hemoglobin 27.4 pg (25.0-34.0); Mean Corpuscular Hgb Conc 32.2 g/dL (32.0-36.0); Mean Corpuscular Volume 85.2 fL (80.0-100.0); Mean Platelet Volume 9.6 fL (9.4-12.4); Platelet Count 165 K/uL (130-400); RDW Coefficient of Variation 17.1 % (11.5-14.5); RDW Standard Deviation 53.1 fL (36.4-46.3); Red Blood Count 3.17 M/uL (4.70-6.10); White Blood Count 8.95 K/ul (4.8-10.8)
[2023-09-13 07:55] LABS: INR 1.6 (0.9-1.1); Prothrombin Time 16.7 Seconds (9.0-12.0)
[2023-09-13 08:17] LABS: BUN Creatinine Ratio 19.8 (10-20); Calcium 7.9 mg/dl (8.6-10.3); Creatinine Clr Calc Pharmacy 106.6 ml/min; Est GFR (African American) 107.3 ml/min; Est GFR (Non-African American) 92.6 ml/min; Potassium 3.6 mmol/L (3.5-5.1)
--- NOTE | 2023-09-13 13:54 | Hospitalist Progress Note ---
Date of Service September 13, 2023 Assessment & Plan (1) Cardiac arrest: Plan: First cardiac arrest was outside of the hospital. This was secondary to septic shock. Extubated on 08/24, off of pressors. Patient recovered from it and was transferred out of the ICU. Still on treatment for septicemia. Second cardiac arrest was on 08/29, secondary to hemorrhagic shock from retroperitoneal and intramuscular bleed. Anticoagulation has been held Patient received 2 units PRBC, protamine and FFP on 08/29, 2 more units PRBC on 08/30. 2 more units PRBC on 09/01. Hemoglobin stable Heparin drip started 09/03. Switching to Lovenox today 09/10 as patient lost his IV site. Hemoglobin today dropped from 10.3-8.7. No active bleed anywhere. Now on Coumadin since 09/07 confirmed DNR/DNI status (2) Acute metabolic encephalopathy: Plan: Started around 08/25 as per patient's but worsened overnight on 08/26 and 08/27 with increased weakness, decreased responsiveness, mostly nonverbal Lactate elevated but otherwise procalcitonin trending downward, renal failure is resolved, some hypokalemia but not severe, sepsis is improving, afebrile Initially thought could be withdrawal from not receiving home Lyrica, gabapentin, or oxycodone CT head negative, but MRI brain on 08/27 showed multiple acute strokes-likely culprit Treating strokes Continue antibiotic therapy for bacteremia (3) Bacteremia: Plan: With septicemia and septic shock-febrile, with leukocytosis, septic shock and PEA arrest on arrival Aerococcus viridans and Proteus isolated in blood cultures. There is also coagulase-negative Staphylococcus which is likely a contaminant. His urine culture also grew Proteus initially and again on 08/27 Aerococcus is also most commonly a organism as per ID. Urine is most likely source but there is also a sacral wound. Sacral wound growing Pseudomonas and Cate, likely colonization Appreciate ID consultation DEO is indicated given multiple embolic appearing strokes-could be septic emboli. DEO was being planned 08/29. However the patient went into cardiac arrest and the procedure was postponed. Currently the patient is on ceftriaxone, vancomycin per ID recommendations Repeat blood cultures on 08/25, 08/27 and 08/29 remain no growth to date Repeat urine culture on 08/27 with Proteus despite ceftriaxone Urology did cystoscopy and left ureteral stent placement 08/30 Continue vancomycin for coverage for the Aerococcus Continue ceftriaxone for Proteus Follow CBC, [facility] Cardiology saw him regarding DEO. We decided against DEO as it would not be decisive. Even if the DEO was negative, there is a strong chance that he did have septic embolization leading to his strokes previously. Moreover his TTE from 08/28 and 09/11 showed a mobile echodensity involving the aortic valve which may represent a vegetation. We decided to complete 6 weeks of IV antibiotics, assuming that this is endocarditis. (4) Acute CVA (cerebrovascular accident): Plan: Brain MRI ordered on 08/27 due to ongoing expressive aphasia and metabolic encephalopathy, found multiple acute strokes-2 subcentimeter in right frontal and parietal lobes, 2 additional questionable punctate acute infarcts in left occipital and left cerebellar hemisphere He was only off of anticoagulation for 1-2 days at the most during this hospitalization after his heparin drip was discontinued for sacral wound bleeding-heparin drip was resumed but due to compatibility issues and poor IV access, was switched to Lovenox SQ 1 mg/kg twice daily. Seems less likely to be cardioembolic from clot, however could be septic emboli from endocarditis Could be from CPR/resuscitation and aortic arch plaque rupture? Dysphagia improved and right-sided weakness was improving. He had a video swallow on 08/28-able to advance diet to mildly thickened liquids and pured food Holding statin due to daptomycin therapy and also patient not able to take p.o. safely Speech therapy consulted again after the second cardiac arrest Carotid Dopplers negative Continue neuro checks and stroke scale Lipid panel with very low cholesterol, hemoglobin A1c severely elevated at 11.0%-he is not on any diabetes medications-diabetes control addressed Neurology consult placed-thinks strokes due to sepsis, thinks that aspirin is not necessary but patient was on aspirin prior to admission for his previous cardiac issues so was continued. Currently held due to retroperitoneal bleed and hemorrhagic shock. Plan for DEO is being held for the time being due to patient's critical condition. Patient is at risk for further strokes. Patient had bacteremia, DEO not done yet. Not sure if he has valvular vegetations. If patient's condition gets worse, wants him to be made comfort care. Palliative care on board (5) Atrial fibrillation: Plan: Developed August 25 p.m. and is new onset for patient Heparin drip was started but subsequently discontinued due to bleeding from the freshly debrided sacral decubitus. Was switched to therapeutic Lovenox He was treated for Coumadin toxicity with parenteral vitamin K on August 25, and INR was subtherapeutic Coumadin 7.5 mg was administered x 1 on 08/26 but then held due to NPO status--> resumed 08/29 as now able to take po Was started on Lovenox SQ 100 Mg every 12 hours for bridging On 08/29, had hemorrhagic shock leading to PEA arrest All anticoagulation was held due to retroperitoneal bleed and hemorrhagic shock. Resumed heparin drip 09/03 without bolus. Coumadin started 09/07. Switched from heparin drip to Lovenox today 09/10 because the patient lost IV site Now on metoprolol 25 mg p.o. twice daily Monitor on telemetry (6) Respiratory failure: Plan: Acute hypoxic respiratory failure. He was extubated on the morning of August 24. Resolved. Reintubated as part of code on 08/29. Now extubated 08/31. (7) Aspiration pneumonia of both lower lobes: Plan: Suspected aspiration pneumonia in both lower lobes on admission but repeat chest x-ray is now clear. No need for antibiotic coverage for pneumonia at this point speech therapy following as he did aspirate at the bedside of thin liquids with water on 08/27 in the setting of newly diagnosed acute strokes Now with video swallow and he is aspirating thin liquids but is able to tolerate mildly thickened liquids and pured foods Passed speech evaluation on 08/31. Started on a diet but patient has a very weak voice. Speech therapy on board. Patient is high risk of aspiration. Patient does not want a feeding tube placed. On the night of 09/10, the patient aspirated. Had increased oxygen demands. After suctioning, oxygen requirements improved. He is now on clindamycin. He is now NPO. I spoke to the on 09/11. She is reluctant to switch to comfort care as this would make her feel like she is "giving up on him". She would like to continue as is and let nature take its course. I explained to her that I am not comfortable feeding him today. The plan is to keep him n.p.o. today. She wants him to eat if he wants to eat. And if he aspirates again and dies, will let him go per the . I explained to her that we are essentially prolonging his sufferings. She agrees but it is better than her having the guilt of "giving up on him". I spoke to the patient today 09/12. He is reluctant to make any decisions towards comfort care as well. He says that he is not hungry and is okay with an n.p.o. status. Explained to him that he is at high risk for recurrent aspiration. Even if he does not eat by mouth, he is at high risk to aspirate his own secretions. (8) Decubitus ulcer: Plan: Debrided on August 25. Some minor bleeding occurred with heparin drip on August 25 and heparin drip was placed on hold and then was put back on anticoagulation. Currently in hemorrhagic shock due to retroperitoneal bleed. All anticoagulation on hold Continue local care. Appreciate general surgery consultation and recommendations-appreciate bedside debridement Appears blackened in color on 08/29 but Surgeon used silver nitrate to treat the bleeding Wound cx growing Pseudomonas and Cate. Likely to be colonization Wound care on board (9) Chronic anticoagulation: Plan: With Coumadin. He has a mechanical valve and target INR is 2.5-3.5 INR was subtherapeutic at 2 on 08/29 and thus the patient was started on Lovenox bridge. He then had a retroperitoneal hematoma leading to hemorrhagic shock and cardiac arrest. Currently all anticoagulation on hold Will need to start him back on heparin drip soon because of his mechanical valves. Currently heparin drip on hold Dilemma with anticoagulation Without anticoagulation, mechanical valves will clot With anticoagulation, recently had internal bleeding leading to cardiac arrest. Resuming anticoagulation carries bleeding risk. We are in a facility where IR will not be able to stop the bleeding immediately. Transfer to a tertiary care center as an option was offered but the declined. Hemoglobin has been stable. Spoke to and started him on heparin drip on 09/03. Hemoglobin stable on the heparin drip changed CODE STATUS to DNR/DNI 09/02 after a lengthy discussion was held on the phone If he bleeds, she may choose comfort care If he clots, she may choose comfort care Palliative care on board Decided to start the patient on Coumadin home dose 09/07. Patient did not decide on comfort care. INR 1.6 today. Hemoglobin dropped from 10-8.7 today. Part of it could be dilutional as he is on IV fluids because of being n.p.o. no signs of active bleeding. Patient lost one of the 2 IV sites. Vancomycin cannot be run with IV heparin. IV team tells me that a PICC line cannot be placed as they cannot find any ultrasound-guided vein. I decided to switch him from IV heparin to Lovenox subcu. From a bleeding risk perspective, subcu Lovenox does not offer any increased risk over IV heparin. (10) Uncontrolled diabetes mellitus with hyperglycemia: Plan: Type 2 diabetes. His hemoglobin A1c is severely elevated at 11.0% Patient's reports that he was started on Lantus 60 units at bedtime but she only gave it to him once and he became significantly hypoglycemic and delirious and she has been fearful to give it ever since. She does give him occasional NovoLog during the day with meals when his blood sugar is elevated Currently on sliding scale coverage and basal insulin therapy with minimal doses as he has been mostly n.p.o Appreciate early childhood educator aide counseling. Diabetes counselor concerned about poor oral intake. Per , he does not like the pured diet and thus is not eating enough. 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 On amlodipine 10 and metoprolol 25. Resumed Lasix 20 mg q. other day (13) Gout: Plan: Hold home allopurinol (14) BPH w urinary obs/LUTS: Plan: Davis catheter in place (15) Hypokalemia: Plan: Follow BMP and magnesium Replete (16) History of aortic valve replacement with metallic valve: Plan: Noted, also with repair of aortic aneurysm at that time (17) Hyperlipidemia: Plan: Resume statin (18) Peripheral neuropathy: Plan: With chronic pain, takes pregabalin, gabapentin, and oxycodone as needed Would not combine gabapentin with Lyrica Can take oxycodone as needed but this does make him drowsy Plan 09/02: declined transfer to a tertiary facility. She changed his CODE STATUS to DNR/DNI. If his condition declines, she will choose comfort measures. 09/03: Heparin drip resumed cautiously after speaking to . 09/05: Patient does not want feeding tube 09/07: Started Coumadin 09/10: Aspiration Admission and Anticipated Discharge Date Admission Date: August 23, 2023 Subjective Spoke to patient at the bedside. He has a weak voice but was able to communicate. He has been kept n.p.o. since the aspiration episode 2 nights ago. Review of Systems Review of Systems: All systems reviewed & are unremarkable except as noted in Subjective Physical Exam Physical Exam: General: Awake, able to hold a conversation even though his voice is weak Heart: S1, S2/regular rate and rhythm, no murmur rubs or gallops Lungs: Clear to auscultation bilaterally. Normal effort Abdomen: Soft/nontender/nondistended. No hepatosplenomegaly Extremities: No clubbing/cyanosis. 1+ pitting bilateral edema Behavior: Appropriate, cooperative Results & Data Results & Data Vital Signs (Past 12 Hours) Vital Signs Temp Pulse Pulse Resp BP BP Pulse Ox 09/13/23 11:49 36.7 C 94 H 20 176/91 H 99 09/13/23 08:09 36.5 C 92 H 22 126/92 98 09/13/23 08:00 09/13/23 08:00 99 H 09/13/23 04:43 36.6 C 94 H 23 116/92 98 O2 Del Method 09/13/23 11:49 Room Air 09/13/23 08:09 Room Air 09/13/23 08:00 Room Air 09/13/23 08:00 09/13/23 04:43 Room Air PG Care Time/CCT Total # of Minutes Spent Total Time Spent with Patient: Total time spent is greater than 50% in coordination of care (as documented) at patient's floor/unit and/or counseling patient: Coding Level of Care Code 92724 SUB INP/OBS CARE 2/35MIN Diagnoses Cardiac arrest I46.9 Acute metabolic encephalopathy G93.41 Bacteremia R78.81 Acute CVA (cerebrovascular accident) I63.9 Atrial fibrillation I48.91 Respiratory failure J96.00 Chronicity: acute Respiratory failure complication: unspecified whether with hypoxia or hypercapnia Aspiration pneumonia of both lower lobes J69.0 Decubitus ulcer L89.90 Chronic anticoagulation Z79.01 Uncontrolled diabetes mellitus with hyperglycemia E11.65 History of stroke Z86.73 Hypertension I10 Gout M10.9 BPH w urinary obs/LUTS N40.1; N13.8 Hypokalemia E87.6 History of aortic valve replacement with metallic valve Z95.4 Hyperlipidemia E78.5 Peripheral neuropathy G62.9 (6) Respiratory failure Chronicity: acute Respiratory failure complication: unspecified whether with hypoxia or hypercapnia Qualified Code(s): J96.00 - Acute respiratory failure, unspecified whether with hypoxia or hypercapnia
--- NOTE | 2023-09-13 16:38 | Pharmacy Report ---
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 * SCr up-trending (0.55-->0.69-->0.8-->0.91). Plan for 6 weeks of therapy unless DEO performed (& no vegetation). 09/11: * Day # 14 Rocephin + Vancomycin for proteus mirabilis + aerococcus viradans bacteremia / prosthetic valve endocarditis. * Repeat BLCXs from 08/29 no growth * Clindamycin added by overnight Hospitalist due to increased oxygen needs, cough and CXR concerning for aspiration * Vanco level drawn today ~10 hrs after last dose = 24.2mcg/mL. Prior doses hung according to schedule. SCr mild increase over last 24 hrs (0.69-->0.8). Current regimen of 1gm Q 12hrs is now predicted to exceed goal AUC/JANICE of 400- 600. Will change dose to 750mg IV Q 12 hrs and delay next dose until 1800 today. F/U chemistry ordered for tomorrow AM. 09/07: * Vanc level 21.2 mcg/mL Today. SCr continues to be stable. Current plan for 6 weeks of treatment if no DEO performed (through 10/05). 09/04: * Day #5 of resumed vancomycin therapy. Remains on ceftriaxone as well. * Vanc level 19.7 mcg/mL today. Kidney function stabilized. Leukocytosis also improving. DEO remains on hold. 09/02: * Day #3 of resumed vancomycin therapy. Remains on ceftriaxone as well. * Vanc level decreased to 18.9 mcg/mL today. Kidney function continues to improve. Leukocytosis also improving. 09/01: * Day #2 of resumed Vancomycin therapy. Patient also on ceftriaxone. * Level returned today at 19.7 mcg/mL which is therapeutic but at the upper limit of normal. AUC monitoring software does predict this as a therapeutic dose with AUC/JANICE of 523. * Urine output was significant yesterday but patient is receiving Lasix IV. However, SCr has starting trending back down to normal, was 1.05 early this AM and then 0.83 on repeat. * Therefore, will continue current regimen with thought that trough level will start to trend down and not become supratherapeutic. Due to concern for toxicity, will order another level tomorrow prior to the 5th dose which will represent true steady state (to a degree with changing renal function). 08/31: * vancomycin was d/c'd yesterday afternoon and daptomycin resumed. Today, ID wished to switch back to vancomycin as we have susceptibilities for the aerococcus for vancomycin but are unable to obtain this for dapto. * Patient's scr did increase again today and urine output remains low. Will proceed with caution dosing and get another level tomorrow. * Last dose of vancomycin was 08/30 ~ 0500 and last dose of dapto was 08/30 @ 1700. Given this and renal function concerns, will not re-load and start with maintenance dosing. 08/30: * 57 year old M receiving vancomycin and cefepime for treatment of bacteremia, UTI and pulmonary sources. Patient is post cardiac arrest. Pertinent microbiologic data includes: urine culture growing proteus mirabilis and blood cx growing proteus mirabilis and aerococcus viridans. CT abd/pelvis showing left obstructing uretal stone. Scr increased somewhat since yesterday. Will monitor the transiency of this in the setting of acute clinical change. Based on the rise in scr and random level this morning will decrease maintenance dose. Plan Vancomycin * Current regimen: 750mg IV every 12 hours * Random level obtained this afternoon, 22.1mcg/mL, (~8.5h level) predicted to achieve ssAUC 560mg/L.hr with a 15% toxicity risk. * Will optimize to 1500mg IV q24h- predicted to achieve ssAUC 568mg/L.hr with an 11% risk of toxicity. * Repeat level in ~48h or sooner if renal function worsens. Pharmacy will continue to follow and will adjust dose/frequency as necessary. Thank you. Pharmacy has transitioned to AUC monitoring for vancomycin. AUC/JANICE is the preferred PK/PD target and is associated with decreased risk of nephrotoxicity compared to traditional trough targets.
[2023-09-13] MEDS: VANCOMYCIN HCL 1,500 MG in SODIUM CHLORIDE 0.9% 500 ML IV SCH (21:20)
[2023-09-14 07:18] LABS: INR 1.7 (0.9-1.1); Prothrombin Time 17.7 Seconds (9.0-12.0)
[2023-09-14 07:36] LABS: Hemoglobin 9.3 g/dl (14.0-18.0); Mean Corpuscular Hemoglobin 27.8 pg (25.0-34.0); Mean Corpuscular Hgb Conc 32.1 g/dL (32.0-36.0); Mean Corpuscular Volume 86.6 fL (80.0-100.0); Mean Platelet Volume 9.8 fL (9.4-12.4); Platelet Count 149 K/uL (130-400); RDW Standard Deviation 53.8 fL (36.4-46.3); Red Blood Count 3.35 M/uL (4.70-6.10); White Blood Count 6.47 K/ul (4.8-10.8)
[2023-09-14 07:39] LABS: Est GFR (African American) 119.2 ml/min; Potassium 3.4 mmol/L (3.5-5.1)
[2023-09-14 07:40] LABS: BUN Creatinine Ratio 23.6 (10-20); Calcium 7.7 mg/dl (8.6-10.3); Creatinine Clr Calc Pharmacy 134.5 ml/min; Est GFR (Non-African American) 102.8 ml/min
[2023-09-14] MEDS: POTASSIUM CHLORIDE / WTR 10 MEQ/100 ML PLCT IV SCH (09:06)
[2023-09-14] MEDS ORDERED: GLYCOPYRROLATE 0.2 MG/ML VIAL IV PRN (10:34)
--- NOTE | 2023-09-14 10:39 | Palliative Care Progress Note ---
Date of Service September 14, 2023 Assessment & Plan (1) Swallowing dysfunction: Plan: Met with Anurag at bedside face to face x 20min He is decisionally intact and has capacity to make his own decisions He is not delirious but he does tire easily He reaffirms: He does not want feeding tube He does not want to be NPO "I want to eat. I like to eat. I am thirsty now." (2) Weakness generalized: (3) Dyspnea and respiratory abnormalities: (4) Advanced care planning/counseling discussion: Plan: I spoke with pt Chastity by phone x 20min Reviewed my discussion with pt and his expressed wishes. We spoke about his wishes and she is in agreement for the following plan of care: Comfort care driven plan No Feeding tube. Allow PO as tolerated for comfort/pleasure, allow permissive aspiration. Please ask Speech to see pt to recc best texture for comfort diet He wants to be near family. He does not want to linger in hospital. He understands his care is more than can be managed at home by who is also multimedia production assistant caregiver for their grandchild, he says the child is most important He wants to be home, close to home, and maximize time with family He knows he is not getting better He acknowledges time may be running shorter than he would like He prefers to spend this time with family. He is agreeable to rehab trial at SNF along with wound care (skilled needs) and then transition to [employer] [employer] if worsening, not improving or has an acute decline. NO return to hospital. Do not escalate care. (5) Palliative care by specialist: Plan ACP and dispo as above. Thank you for allowing us to participate in the ongoing care of this patient. Please don't hesitate to call or page with any additional concerns. Dr. Catherine Prakash DNP Director, Palliative Care Admission and Anticipated Discharge Date Admission Date: August 23, 2023 Subjective Requested to re engage with pt and family by primary team He is aspirating and was changed to NPO status At the time of my visit, he is awake, alert and oriented x3 He can follow simple commands he will answer yes/no and give thumbs up/down when asked there is no family present he denies pain other than his lower back at wound, SOB, chest tightness or pressure he denies nausea he admits to feeling thirsty, dry mouth Review of Systems Review of Systems: All systems reviewed & are unremarkable except as noted in Subjective Physical Exam Physical Exam: Bitemp wasting, chronically ill appearing AAOx3; he is able to follow simple commands. he is not delirous. He is able to answer yes/no accurately. Gets tired after about ten minutes of discussion no delirium PERRLA, EOMIs +bhavana voce neck supple, no stridor Sl inc resp effort with use of accessory muscles noted RRR, no JVD Abdomen soft, NTP, BS+ BLE +1 edema sl diaphoretic/room is humid Cooperative with exam Results & Data Vital Signs (Past 12 Hours) Vital Signs Temp Pulse Pulse Pulse Resp BP Pulse Ox 09/14/23 08:44 36.6 C 102 H 27 H 127/91 100 09/14/23 07:24 96 H 09/14/23 07:17 09/14/23 03:17 36.5 C 93 H 20 129/93 100 09/13/23 23:00 36.7 C 105 H 24 130/87 95 O2 Del Method O2 Flow Rate 09/14/23 08:44 Nasal Cannula 4 09/14/23 07:24 09/14/23 07:17 4 09/14/23 03:17 CPAP 09/13/23 23:00 Room Air Laboratory Results 09/14/23 09/14/23 09/13/23 Range/Units 06:48 05:42 23:44 WBC 6.47 (4.8-10.8) K/ul RBC 3.35 L (4.70-6.10) M/uL Hgb 9.3 L (14.0-18.0) g/dl Hct 29.0 L (42.0-52.0) % MCV 86.6 (80.0-100.0) fL MCH 27.8 (25.0-34.0) pg MCHC 32.1 (32.0-36.0) g/dL RDW Std Deviation 53.8 H (36.4-46.3) fL RDW Coeff of Malika 17.0 H (11.5-14.5) % Plt Count 149 (130-400) K/uL MPV 9.8 (9.4-12.4) fL PT 17.7 H INR 1.7 H Heparin Anti-Xa, Unfract (0.3-0.7) IU/ml Sodium 140 (136-145) mmol/L Potassium 3.4 L (3.5-5.1) mmol/L Chloride 104 (98-107) mmol/L Carbon Dioxide 28 (21-32) mmol/L Anion Gap 8 (3-11) BUN 17 (6-23) mg/dl Creatinine 0.72 (0.6-1.4) mg/dl Est Cr Clr Drug Dosing 134.5 ml/min Est GFR ( Amer) 119.2 ml/min Est GFR (Non-Af Amer) 102.8 ml/min BUN/Creatinine Ratio 23.6 H (10-20) Glucose 91 (70-99(Fasting)) mg/dl POC Glucose 90 88 (70-99) mg/dl Calcium 7.7 L (8.6-10.3) mg/dl Magnesium (1.7-2.4) mg/dl Random Vancomycin (10-20) mcg/ml Adenovirus (PCR) (NotDetected) B. pertussis DNA (PCR) (NotDetected) B.parapertussis DNA PCR (NotDetected) C. pneumoniae DNA (PCR) (NotDetected) Coronavirus OC43 (PCR) (NotDetected) Coronavirus HKU1 (PCR) (NotDetected) Coronavirus 229E (PCR) (NotDetected) SARS-CoV-2 (PCR) (NotDetected) Coronavirus NL63 (PCR) (NotDetected) Human Metapneumovir PCR (NotDetected) Influenza Type A (PCR) (NotDetected) Influenza Type B (PCR) (NotDetected) M. pneumoniae (PCR) (NotDetected) Parainfluenza 1 (PCR) (NotDetected) Parainfluenza 2 (PCR) (NotDetected) Parainfluenza 3 (PCR) (NotDetected) Parainfluenza 4 (PCR) (NotDetected) RSV (PCR) (NotDetected) Entero/Rhino (PCR) (NotDetected) 09/13/23 09/13/23 09/13/23 Range/Units 20:12 18:19 14:18 WBC (4.8-10.8) K/ul RBC (4.70-6.10) M/uL Hgb (14.0-18.0) g/dl Hct (42.0-52.0) % MCV (80.0-100.0) fL MCH (25.0-34.0) pg MCHC (32.0-36.0) g/dL RDW Std Deviation (36.4-46.3) fL RDW Coeff of Malika (11.5-14.5) % Plt Count (130-400) K/uL MPV (9.4-12.4) fL PT INR Heparin Anti-Xa, Unfract (0.3-0.7) IU/ml Sodium (136-145) mmol/L Potassium (3.5-5.1) mmol/L Chloride (98-107) mmol/L Carbon Dioxide (21-32) mmol/L Anion Gap (3-11) BUN (6-23) mg/dl Creatinine (0.6-1.4) mg/dl Est Cr Clr Drug Dosing ml/min Est GFR ( Amer) ml/min Est GFR (Non-Af Amer) ml/min BUN/Creatinine Ratio (10-20) Glucose (70-99(Fasting)) mg/dl POC Glucose 99 118 H (70-99) mg/dl Calcium (8.6-10.3) mg/dl Magnesium (1.7-2.4) mg/dl Random Vancomycin 22.1 H (10-20) mcg/ml Adenovirus (PCR) (NotDetected) B. pertussis DNA (PCR) (NotDetected) B.parapertussis DNA PCR (NotDetected) C. pneumoniae DNA (PCR) (NotDetected) Coronavirus OC43 (PCR) (NotDetected) Coronavirus HKU1 (PCR) (NotDetected) Coronavirus 229E (PCR) (NotDetected) SARS-CoV-2 (PCR) (NotDetected) Coronavirus NL63 (PCR) (NotDetected) Human Metapneumovir PCR (NotDetected) Influenza Type A (PCR) (NotDetected) Influenza Type B (PCR) (NotDetected) M. pneumoniae (PCR) (NotDetected) Parainfluenza 1 (PCR) (NotDetected) Parainfluenza 2 (PCR) (NotDetected) Parainfluenza 3 (PCR) (NotDetected) Parainfluenza 4 (PCR) (NotDetected) RSV (PCR) (NotDetected) Entero/Rhino (PCR) (NotDetected) 09/13/23 09/13/23 09/13/23 Range/Units 11:07 07:24 06:14 WBC 8.95 (4.8-10.8) K/ul RBC 3.17 L (4.70-6.10) M/uL Hgb 8.7 L (14.0-18.0) g/dl Hct 27.0 L (42.0-52.0) % MCV 85.2 (80.0-100.0) fL MCH 27.4 (25.0-34.0) pg MCHC 32.2 (32.0-36.0) g/dL RDW Std Deviation 53.1 H (36.4-46.3) fL RDW Coeff of Malika 17.1 H (11.5-14.5) % Plt Count 165 (130-400) K/uL MPV 9.6 (9.4-12.4) fL PT 16.7 H INR 1.6 H Heparin Anti-Xa, Unfract (0.3-0.7) IU/ml Sodium 136 (136-145) mmol/L Potassium 3.6 (3.5-5.1) mmol/L Chloride 99 (98-107) mmol/L Carbon Dioxide 31 (21-32) mmol/L Anion Gap 6 (3-11) BUN 18 (6-23) mg/dl Creatinine 0.91 (0.6-1.4) mg/dl Est Cr Clr Drug Dosing 106.6 ml/min Est GFR ( Amer) 107.3 ml/min Est GFR (Non-Af Amer) 92.6 ml/min BUN/Creatinine Ratio 19.8 (10-20) Glucose 108 H (70-99(Fasting)) mg/dl POC Glucose 107 H 109 H (70-99) mg/dl Calcium 7.9 L (8.6-10.3) mg/dl Magnesium (1.7-2.4) mg/dl Random Vancomycin (10-20) mcg/ml Adenovirus (PCR) (NotDetected) B. pertussis DNA (PCR) (NotDetected) B.parapertussis DNA PCR (NotDetected) C. pneumoniae DNA (PCR) (NotDetected) Coronavirus OC43 (PCR) (NotDetected) Coronavirus HKU1 (PCR) (NotDetected) Coronavirus 229E (PCR) (NotDetected) SARS-CoV-2 (PCR) (NotDetected) Coronavirus NL63 (PCR) (NotDetected) Human Metapneumovir PCR (NotDetected) Influenza Type A (PCR) (NotDetected) Influenza Type B (PCR) (NotDetected) M. pneumoniae (PCR) (NotDetected) Parainfluenza 1 (PCR) (NotDetected) Parainfluenza 2 (PCR) (NotDetected) Parainfluenza 3 (PCR) (NotDetected) Parainfluenza 4 (PCR) (NotDetected) RSV (PCR) (NotDetected) Entero/Rhino (PCR) (NotDetected) 09/12/23 09/12/23 09/12/23 Range/Units Unknown 23:59 21:29 WBC (4.8-10.8) K/ul RBC (4.70-6.10) M/uL Hgb (14.0-18.0) g/dl Hct (42.0-52.0) % MCV (80.0-100.0) fL MCH (25.0-34.0) pg MCHC (32.0-36.0) g/dL RDW Std Deviation (36.4-46.3) fL RDW Coeff of Malika (11.5-14.5) % Plt Count (130-400) K/uL MPV (9.4-12.4) fL PT INR Heparin Anti-Xa, Unfract (0.3-0.7) IU/ml Sodium (136-145) mmol/L Potassium (3.5-5.1) mmol/L Chloride (98-107) mmol/L Carbon Dioxide (21-32) mmol/L Anion Gap (3-11) BUN (6-23) mg/dl Creatinine (0.6-1.4) mg/dl Est Cr Clr Drug Dosing ml/min Est GFR ( Amer) ml/min Est GFR (Non-Af Amer) ml/min BUN/Creatinine Ratio (10-20) Glucose (70-99(Fasting)) mg/dl POC Glucose 112 H 119 H (70-99) mg/dl Calcium (8.6-10.3) mg/dl Magnesium (1.7-2.4) mg/dl Random Vancomycin (10-20) mcg/ml Adenovirus (PCR) Not Detected (NotDetected) B. pertussis DNA (PCR) Not Detected (NotDetected) B.parapertussis DNA PCR Not Detected (NotDetected) C. pneumoniae DNA (PCR) Not Detected (NotDetected) Coronavirus OC43 (PCR) Not Detected (NotDetected) Coronavirus HKU1 (PCR) Not Detected (NotDetected) Coronavirus 229E (PCR) Not Detected (NotDetected) SARS-CoV-2 (PCR) Not Detected (NotDetected) Coronavirus NL63 (PCR) Not Detected (NotDetected) Human Metapneumovir PCR Not Detected (NotDetected) Influenza Type A (PCR) Not Detected (NotDetected) Influenza Type B (PCR) Not Detected (NotDetected) M. pneumoniae (PCR) Not Detected (NotDetected) Parainfluenza 1 (PCR) Not Detected (NotDetected) Parainfluenza 2 (PCR) Not Detected (NotDetected) Parainfluenza 3 (PCR) Not Detected (NotDetected) Parainfluenza 4 (PCR) Not Detected (NotDetected) RSV (PCR) Not Detected (NotDetected) Entero/Rhino (PCR) Not Detected (NotDetected) 09/12/23 09/12/23 09/12/23 Range/Units 18:18 11:57 10:55 WBC (4.8-10.8) K/ul RBC (4.70-6.10) M/uL Hgb (14.0-18.0) g/dl Hct (42.0-52.0) % MCV (80.0-100.0) fL MCH (25.0-34.0) pg MCHC (32.0-36.0) g/dL RDW Std Deviation (36.4-46.3) fL RDW Coeff of Malika (11.5-14.5) % Plt Count (130-400) K/uL MPV (9.4-12.4) fL PT INR Heparin Anti-Xa, Unfract (0.3-0.7) IU/ml Sodium (136-145) mmol/L Potassium (3.5-5.1) mmol/L Chloride (98-107) mmol/L Carbon Dioxide (21-32) mmol/L Anion Gap (3-11) BUN (6-23) mg/dl Creatinine (0.6-1.4) mg/dl Est Cr Clr Drug Dosing ml/min Est GFR ( Amer) ml/min Est GFR (Non-Af Amer) ml/min BUN/Creatinine Ratio (10-20) Glucose (70-99(Fasting)) mg/dl POC Glucose 113 H 124 H (70-99) mg/dl Calcium (8.6-10.3) mg/dl Magnesium (1.7-2.4) mg/dl Random Vancomycin 24.2 H (10-20) mcg/ml Adenovirus (PCR) (NotDetected) B. pertussis DNA (PCR) (NotDetected) B.parapertussis DNA PCR (NotDetected) C. pneumoniae DNA (PCR) (NotDetected) Coronavirus OC43 (PCR) (NotDetected) Coronavirus HKU1 (PCR) (NotDetected) Coronavirus 229E (PCR) (NotDetected) SARS-CoV-2 (PCR) (NotDetected) Coronavirus NL63 (PCR) (NotDetected) Human Metapneumovir PCR (NotDetected) Influenza Type A (PCR) (NotDetected) Influenza Type B (PCR) (NotDetected) M. pneumoniae (PCR) (NotDetected) Parainfluenza 1 (PCR) (NotDetected) Parainfluenza 2 (PCR) (NotDetected) Parainfluenza 3 (PCR) (NotDetected) Parainfluenza 4 (PCR) (NotDetected) RSV (PCR) (NotDetected) Entero/Rhino (PCR) (NotDetected) 09/12/23 09/12/23 09/11/23 Range/Units 07:10 06:43 20:11 WBC 11.39 H (4.8-10.8) K/ul RBC 3.73 L (4.70-6.10) M/uL Hgb 10.3 L (14.0-18.0) g/dl Hct 31.3 L (42.0-52.0) % MCV 83.9 (80.0-100.0) fL MCH 27.6 (25.0-34.0) pg MCHC 32.9 (32.0-36.0) g/dL RDW Std Deviation 53.1 H (36.4-46.3) fL RDW Coeff of Malika 17.2 H (11.5-14.5) % Plt Count 168 (130-400) K/uL MPV 9.9 (9.4-12.4) fL PT 14.4 H INR 1.4 H Heparin Anti-Xa, Unfract (0.3-0.7) IU/ml Sodium 134 L (136-145) mmol/L Potassium 3.9 (3.5-5.1) mmol/L Chloride 97 L (98-107) mmol/L Carbon Dioxide 31 (21-32) mmol/L Anion Gap 6 (3-11) BUN 16 (6-23) mg/dl Creatinine 0.80 (0.6-1.4) mg/dl Est Cr Clr Drug Dosing 122.4 ml/min Est GFR ( Amer) 114.1 ml/min Est GFR (Non-Af Amer) 98.5 ml/min BUN/Creatinine Ratio 20.0 (10-20) Glucose 142 H (70-99(Fasting)) mg/dl POC Glucose 144 H 161 H (70-99) mg/dl Calcium 8.2 L (8.6-10.3) mg/dl Magnesium (1.7-2.4) mg/dl Random Vancomycin (10-20) mcg/ml Adenovirus (PCR) (NotDetected) B. pertussis DNA (PCR) (NotDetected) B.parapertussis DNA PCR (NotDetected) C. pneumoniae DNA (PCR) (NotDetected) Coronavirus OC43 (PCR) (NotDetected) Coronavirus HKU1 (PCR) (NotDetected) Coronavirus 229E (PCR) (NotDetected) SARS-CoV-2 (PCR) (NotDetected) Coronavirus NL63 (PCR) (NotDetected) Human Metapneumovir PCR (NotDetected) Influenza Type A (PCR) (NotDetected) Influenza Type B (PCR) (NotDetected) M. pneumoniae (PCR) (NotDetected) Parainfluenza 1 (PCR) (NotDetected) Parainfluenza 2 (PCR) (NotDetected) Parainfluenza 3 (PCR) (NotDetected) Parainfluenza 4 (PCR) (NotDetected) RSV (PCR) (NotDetected) Entero/Rhino (PCR) (NotDetected) 09/11/23 09/11/23 09/11/23 Range/Units 16:23 14:06 11:30 WBC (4.8-10.8) K/ul RBC (4.70-6.10) M/uL Hgb (14.0-18.0) g/dl Hct (42.0-52.0) % MCV (80.0-100.0) fL MCH (25.0-34.0) pg MCHC (32.0-36.0) g/dL RDW Std Deviation (36.4-46.3) fL RDW Coeff of Malika (11.5-14.5) % Plt Count (130-400) K/uL MPV (9.4-12.4) fL PT INR Heparin Anti-Xa, Unfract (0.3-0.7) IU/ml Sodium (136-145) mmol/L Potassium (3.5-5.1) mmol/L Chloride (98-107) mmol/L Carbon Dioxide (21-32) mmol/L Anion Gap (3-11) BUN (6-23) mg/dl Creatinine (0.6-1.4) mg/dl Est Cr Clr Drug Dosing ml/min Est GFR ( Amer) ml/min Est GFR (Non-Af Amer) ml/min BUN/Creatinine Ratio (10-20) Glucose (70-99(Fasting)) mg/dl POC Glucose 140 H 154 H (70-99) mg/dl Calcium (8.6-10.3) mg/dl Magnesium 1.9 (1.7-2.4) mg/dl Random Vancomycin (10-20) mcg/ml Adenovirus (PCR) (NotDetected) B. pertussis DNA (PCR) (NotDetected) B.parapertussis DNA PCR (NotDetected) C. pneumoniae DNA (PCR) (NotDetected) Coronavirus OC43 (PCR) (NotDetected) Coronavirus HKU1 (PCR) (NotDetected) Coronavirus 229E (PCR) (NotDetected) SARS-CoV-2 (PCR) (NotDetected) Coronavirus NL63 (PCR) (NotDetected) Human Metapneumovir PCR (NotDetected) Influenza Type A (PCR) (NotDetected) Influenza Type B (PCR) (NotDetected) M. pneumoniae (PCR) (NotDetected) Parainfluenza 1 (PCR) (NotDetected) Parainfluenza 2 (PCR) (NotDetected) Parainfluenza 3 (PCR) (NotDetected) Parainfluenza 4 (PCR) (NotDetected) RSV (PCR) (NotDetected) Entero/Rhino (PCR) (NotDetected) 09/11/23 09/11/23 09/10/23 Range/Units 07:00 06:07 20:36 WBC 9.19 (4.8-10.8) K/ul RBC 3.59 L (4.70-6.10) M/uL Hgb 9.9 L (14.0-18.0) g/dl Hct 30.3 L (42.0-52.0) % MCV 84.4 (80.0-100.0) fL MCH 27.6 (25.0-34.0) pg MCHC 32.7 (32.0-36.0) g/dL RDW Std Deviation 52.6 H (36.4-46.3) fL RDW Coeff of Malika 17.2 H (11.5-14.5) % Plt Count 173 (130-400) K/uL MPV 9.9 (9.4-12.4) fL PT 13.4 H INR 1.3 H Heparin Anti-Xa, Unfract 0.36 (0.3-0.7) IU/ml Sodium 133 L (136-145) mmol/L Potassium 3.7 (3.5-5.1) mmol/L Chloride 96 L (98-107) mmol/L Carbon Dioxide 33 H (21-32) mmol/L Anion Gap 4 (3-11) BUN 12 (6-23) mg/dl Creatinine 0.69 (0.6-1.4) mg/dl Est Cr Clr Drug Dosing 142.7 ml/min Est GFR ( Amer) 121.3 ml/min Est GFR (Non-Af Amer) 104.6 ml/min BUN/Creatinine Ratio 17.4 (10-20) Glucose 144 H (70-99(Fasting)) mg/dl POC Glucose 135 H 159 H (70-99) mg/dl Calcium 8.0 L (8.6-10.3) mg/dl Magnesium (1.7-2.4) mg/dl Random Vancomycin (10-20) mcg/ml Adenovirus (PCR) (NotDetected) B. pertussis DNA (PCR) (NotDetected) B.parapertussis DNA PCR (NotDetected) C. pneumoniae DNA (PCR) (NotDetected) Coronavirus OC43 (PCR) (NotDetected) Coronavirus HKU1 (PCR) (NotDetected) Coronavirus 229E (PCR) (NotDetected) SARS-CoV-2 (PCR) (NotDetected) Coronavirus NL63 (PCR) (NotDetected) Human Metapneumovir PCR (NotDetected) Influenza Type A (PCR) (NotDetected) Influenza Type B (PCR) (NotDetected) M. pneumoniae (PCR) (NotDetected) Parainfluenza 1 (PCR) (NotDetected) Parainfluenza 2 (PCR) (NotDetected) Parainfluenza 3 (PCR) (NotDetected) Parainfluenza 4 (PCR) (NotDetected) RSV (PCR) (NotDetected) Entero/Rhino (PCR) (NotDetected) 09/10/23 09/10/23 09/10/23 Range/Units 16:32 11:26 07:26 WBC (4.8-10.8) K/ul RBC (4.70-6.10) M/uL Hgb (14.0-18.0) g/dl Hct (42.0-52.0) % MCV (80.0-100.0) fL MCH (25.0-34.0) pg MCHC (32.0-36.0) g/dL RDW Std Deviation (36.4-46.3) fL RDW Coeff of Malika (11.5-14.5) % Plt Count (130-400) K/uL MPV (9.4-12.4) fL PT INR Heparin Anti-Xa, Unfract (0.3-0.7) IU/ml Sodium (136-145) mmol/L Potassium (3.5-5.1) mmol/L Chloride (98-107) mmol/L Carbon Dioxide (21-32) mmol/L Anion Gap (3-11) BUN (6-23) mg/dl Creatinine (0.6-1.4) mg/dl Est Cr Clr Drug Dosing ml/min Est GFR ( Amer) ml/min Est GFR (Non-Af Amer) ml/min BUN/Creatinine Ratio (10-20) Glucose (70-99(Fasting)) mg/dl POC Glucose 174 H 150 H 137 H (70-99) mg/dl Calcium (8.6-10.3) mg/dl Magnesium (1.7-2.4) mg/dl Random Vancomycin (10-20) mcg/ml Adenovirus (PCR) (NotDetected) B. pertussis DNA (PCR) (NotDetected) B.parapertussis DNA PCR (NotDetected) C. pneumoniae DNA (PCR) (NotDetected) Coronavirus OC43 (PCR) (NotDetected) Coronavirus HKU1 (PCR) (NotDetected) Coronavirus 229E (PCR) (NotDetected) SARS-CoV-2 (PCR) (NotDetected) Coronavirus NL63 (PCR) (NotDetected) Human Metapneumovir PCR (NotDetected) Influenza Type A (PCR) (NotDetected) Influenza Type B (PCR) (NotDetected) M. pneumoniae (PCR) (NotDetected) Parainfluenza 1 (PCR) (NotDetected) Parainfluenza 2 (PCR) (NotDetected) Parainfluenza 3 (PCR) (NotDetected) Parainfluenza 4 (PCR) (NotDetected) RSV (PCR) (NotDetected) Entero/Rhino (PCR) (NotDetected) 09/10/23 09/10/23 09/09/23 Range/Units 06:10 06:04 20:17 WBC 8.68 (4.8-10.8) K/ul RBC 3.61 L (4.70-6.10) M/uL Hgb 10.1 L (14.0-18.0) g/dl Hct 30.4 L (42.0-52.0) % MCV 84.2 (80.0-100.0) fL MCH 28.0 (25.0-34.0) pg MCHC 33.2 (32.0-36.0) g/dL RDW Std Deviation 53.2 H (36.4-46.3) fL RDW Coeff of Malika 17.4 H (11.5-14.5) % Plt Count 181 (130-400) K/uL MPV 10.2 (9.4-12.4) fL PT 12.6 H INR 1.2 H Heparin Anti-Xa, Unfract 0.43 (0.3-0.7) IU/ml Sodium 135 L (136-145) mmol/L Potassium 3.4 L (3.5-5.1) mmol/L Chloride 97 L (98-107) mmol/L Carbon Dioxide 33 H (21-32) mmol/L Anion Gap 5 (3-11) BUN 12 (6-23) mg/dl Creatinine 0.68 (0.6-1.4) mg/dl Est Cr Clr Drug Dosing 144.8 ml/min Est GFR ( Amer) 122.0 ml/min Est GFR (Non-Af Amer) 105.3 ml/min BUN/Creatinine Ratio 17.6 (10-20) Glucose 137 H (70-99(Fasting)) mg/dl POC Glucose 147 H (70-99) mg/dl Calcium 8.0 L (8.6-10.3) mg/dl Magnesium 1.4 L (1.7-2.4) mg/dl Random Vancomycin (10-20) mcg/ml Adenovirus (PCR) (NotDetected) B. pertussis DNA (PCR) (NotDetected) B.parapertussis DNA PCR (NotDetected) C. pneumoniae DNA (PCR) (NotDetected) Coronavirus OC43 (PCR) (NotDetected) Coronavirus HKU1 (PCR) (NotDetected) Coronavirus 229E (PCR) (NotDetected) SARS-CoV-2 (PCR) (NotDetected) Coronavirus NL63 (PCR) (NotDetected) Human Metapneumovir PCR (NotDetected) Influenza Type A (PCR) (NotDetected) Influenza Type B (PCR) (NotDetected) M. pneumoniae (PCR) (NotDetected) Parainfluenza 1 (PCR) (NotDetected) Parainfluenza 2 (PCR) (NotDetected) Parainfluenza 3 (PCR) (NotDetected) Parainfluenza 4 (PCR) (NotDetected) RSV (PCR) (NotDetected) Entero/Rhino (PCR) (NotDetected) 09/09/23 09/09/23 09/09/23 Range/Units 16:19 11:37 07:25 WBC (4.8-10.8) K/ul RBC (4.70-6.10) M/uL Hgb (14.0-18.0) g/dl Hct (42.0-52.0) % MCV (80.0-100.0) fL MCH (25.0-34.0) pg MCHC (32.0-36.0) g/dL RDW Std Deviation (36.4-46.3) fL RDW Coeff of Malika (11.5-14.5) % Plt Count (130-400) K/uL MPV (9.4-12.4) fL PT INR Heparin Anti-Xa, Unfract (0.3-0.7) IU/ml Sodium (136-145) mmol/L Potassium (3.5-5.1) mmol/L Chloride (98-107) mmol/L Carbon Dioxide (21-32) mmol/L Anion Gap (3-11) BUN (6-23) mg/dl Creatinine (0.6-1.4) mg/dl Est Cr Clr Drug Dosing ml/min Est GFR ( Amer) ml/min Est GFR (Non-Af Amer) ml/min BUN/Creatinine Ratio (10-20) Glucose (70-99(Fasting)) mg/dl POC Glucose 118 H 150 H 146 H (70-99) mg/dl Calcium (8.6-10.3) mg/dl Magnesium (1.7-2.4) mg/dl Random Vancomycin (10-20) mcg/ml Adenovirus (PCR) (NotDetected) B. pertussis DNA (PCR) (NotDetected) B.parapertussis DNA PCR (NotDetected) C. pneumoniae DNA (PCR) (NotDetected) Coronavirus OC43 (PCR) (NotDetected) Coronavirus HKU1 (PCR) (NotDetected) Coronavirus 229E (PCR) (NotDetected) SARS-CoV-2 (PCR) (NotDetected) Coronavirus NL63 (PCR) (NotDetected) Human Metapneumovir PCR (NotDetected) Influenza Type A (PCR) (NotDetected) Influenza Type B (PCR) (NotDetected) M. pneumoniae (PCR) (NotDetected) Parainfluenza 1 (PCR) (NotDetected) Parainfluenza 2 (PCR) (NotDetected) Parainfluenza 3 (PCR) (NotDetected) Parainfluenza 4 (PCR) (NotDetected) RSV (PCR) (NotDetected) Entero/Rhino (PCR) (NotDetected) 09/09/23 09/09/23 09/09/23 Range/Units 05:20 05:20 05:20 WBC 9.29 (4.8-10.8) K/ul RBC 3.63 L (4.70-6.10) M/uL Hgb 10.0 L (14.0-18.0) g/dl Hct 30.8 L (42.0-52.0) % MCV 84.8 (80.0-100.0) fL MCH 27.5 (25.0-34.0) pg MCHC 32.5 (32.0-36.0) g/dL RDW Std Deviation 54.3 H (36.4-46.3) fL RDW Coeff of Malika 17.7 H (11.5-14.5) % Plt Count 186 (130-400) K/uL MPV 9.6 (9.4-12.4) fL PT 12.4 H Cancelled INR 1.2 H Cancelled Heparin Anti-Xa, Unfract 0.40 (0.3-0.7) IU/ml Sodium 134 L (136-145) mmol/L Potassium 3.4 L (3.5-5.1) mmol/L Chloride 97 L (98-107) mmol/L Carbon Dioxide 32 (21-32) mmol/L Anion Gap 5 (3-11) BUN 11 (6-23) mg/dl Creatinine 0.63 (0.6-1.4) mg/dl Est Cr Clr Drug Dosing 158.2 ml/min Est GFR ( Amer) 125.9 ml/min Est GFR (Non-Af Amer) 108.6 ml/min BUN/Creatinine Ratio 17.5 (10-20) Glucose 134 H (70-99(Fasting)) mg/dl POC Glucose (70-99) mg/dl Calcium 7.9 L (8.6-10.3) mg/dl Magnesium (1.7-2.4) mg/dl Random Vancomycin (10-20) mcg/ml Adenovirus (PCR) (NotDetected) B. pertussis DNA (PCR) (NotDetected) B.parapertussis DNA PCR (NotDetected) C. pneumoniae DNA (PCR) (NotDetected) Coronavirus OC43 (PCR) (NotDetected) Coronavirus HKU1 (PCR) (NotDetected) Coronavirus 229E (PCR) (NotDetected) SARS-CoV-2 (PCR) (NotDetected) Coronavirus NL63 (PCR) (NotDetected) Human Metapneumovir PCR (NotDetected) Influenza Type A (PCR) (NotDetected) Influenza Type B (PCR) (NotDetected) M. pneumoniae (PCR) (NotDetected) Parainfluenza 1 (PCR) (NotDetected) Parainfluenza 2 (PCR) (NotDetected) Parainfluenza 3 (PCR) (NotDetected) Parainfluenza 4 (PCR) (NotDetected) RSV (PCR) (NotDetected) Entero/Rhino (PCR) (NotDetected) 09/08/23 09/08/23 09/08/23 Range/Units 20:29 16:35 11:19 WBC (4.8-10.8) K/ul RBC (4.70-6.10) M/uL Hgb (14.0-18.0) g/dl Hct (42.0-52.0) % MCV (80.0-100.0) fL MCH (25.0-34.0) pg MCHC (32.0-36.0) g/dL RDW Std Deviation (36.4-46.3) fL RDW Coeff of Malika (11.5-14.5) % Plt Count (130-400) K/uL MPV (9.4-12.4) fL PT INR Heparin Anti-Xa, Unfract (0.3-0.7) IU/ml Sodium (136-145) mmol/L Potassium (3.5-5.1) mmol/L Chloride (98-107) mmol/L Carbon Dioxide (21-32) mmol/L Anion Gap (3-11) BUN (6-23) mg/dl Creatinine (0.6-1.4) mg/dl Est Cr Clr Drug Dosing ml/min Est GFR ( Amer) ml/min Est GFR (Non-Af Amer) ml/min BUN/Creatinine Ratio (10-20) Glucose (70-99(Fasting)) mg/dl POC Glucose 115 H 132 H 163 H (70-99) mg/dl Calcium (8.6-10.3) mg/dl Magnesium (1.7-2.4) mg/dl Random Vancomycin (10-20) mcg/ml Adenovirus (PCR) (NotDetected) B. pertussis DNA (PCR) (NotDetected) B.parapertussis DNA PCR (NotDetected) C. pneumoniae DNA (PCR) (NotDetected) Coronavirus OC43 (PCR) (NotDetected) Coronavirus HKU1 (PCR) (NotDetected) Coronavirus 229E (PCR) (NotDetected) SARS-CoV-2 (PCR) (NotDetected) Coronavirus NL63 (PCR) (NotDetected) Human Metapneumovir PCR (NotDetected) Influenza Type A (PCR) (NotDetected) Influenza Type B (PCR) (NotDetected) M. pneumoniae (PCR) (NotDetected) Parainfluenza 1 (PCR) (NotDetected) Parainfluenza 2 (PCR) (NotDetected) Parainfluenza 3 (PCR) (NotDetected) Parainfluenza 4 (PCR) (NotDetected) RSV (PCR) (NotDetected) Entero/Rhino (PCR) (NotDetected) 09/08/23 09/08/23 09/08/23 Range/Units 09:06 07:20 06:25 WBC 10.54 (4.8-10.8) K/ul RBC 3.60 L (4.70-6.10) M/uL Hgb 10.0 L (14.0-18.0) g/dl Hct 30.2 L (42.0-52.0) % MCV 83.9 (80.0-100.0) fL MCH 27.8 (25.0-34.0) pg MCHC 33.1 (32.0-36.0) g/dL RDW Std Deviation 53.3 H (36.4-46.3) fL RDW Coeff of Malika 17.8 H (11.5-14.5) % Plt Count 197 (130-400) K/uL MPV 9.8 (9.4-12.4) fL PT INR Heparin Anti-Xa, Unfract 0.60 (0.3-0.7) IU/ml Sodium 137 (136-145) mmol/L Potassium 3.0 L (3.5-5.1) mmol/L Chloride 98 (98-107) mmol/L Carbon Dioxide 34 H (21-32) mmol/L Anion Gap 5 (3-11) BUN 13 (6-23) mg/dl Creatinine 0.61 (0.6-1.4) mg/dl Est Cr Clr Drug Dosing 163.4 ml/min Est GFR ( Amer) 127.6 ml/min Est GFR (Non-Af Amer) 110.1 ml/min BUN/Creatinine Ratio 21.3 H (10-20) Glucose 134 H (70-99(Fasting)) mg/dl POC Glucose 154 H (70-99) mg/dl Calcium 7.7 L (8.6-10.3) mg/dl Magnesium (1.7-2.4) mg/dl Random Vancomycin 21.2 H (10-20) mcg/ml Adenovirus (PCR) (NotDetected) B. pertussis DNA (PCR) (NotDetected) B.parapertussis DNA PCR (NotDetected) C. pneumoniae DNA (PCR) (NotDetected) Coronavirus OC43 (PCR) (NotDetected) Coronavirus HKU1 (PCR) (NotDetected) Coronavirus 229E (PCR) (NotDetected) SARS-CoV-2 (PCR) (NotDetected) Coronavirus NL63 (PCR) (NotDetected) Human Metapneumovir PCR (NotDetected) Influenza Type A (PCR) (NotDetected) Influenza Type B (PCR) (NotDetected) M. pneumoniae (PCR) (NotDetected) Parainfluenza 1 (PCR) (NotDetected) Parainfluenza 2 (PCR) (NotDetected) Parainfluenza 3 (PCR) (NotDetected) Parainfluenza 4 (PCR) (NotDetected) RSV (PCR) (NotDetected) Entero/Rhino (PCR) (NotDetected) 09/07/23 09/07/23 09/07/23 Range/Units 20:24 16:16 11:35 WBC (4.8-10.8) K/ul RBC (4.70-6.10) M/uL Hgb (14.0-18.0) g/dl Hct (42.0-52.0) % MCV (80.0-100.0) fL MCH (25.0-34.0) pg MCHC (32.0-36.0) g/dL RDW Std Deviation (36.4-46.3) fL RDW Coeff of Malika (11.5-14.5) % Plt Count (130-400) K/uL MPV (9.4-12.4) fL PT INR Heparin Anti-Xa, Unfract (0.3-0.7) IU/ml Sodium (136-145) mmol/L Potassium (3.5-5.1) mmol/L Chloride (98-107) mmol/L Carbon Dioxide (21-32) mmol/L Anion Gap (3-11) BUN (6-23) mg/dl Creatinine (0.6-1.4) mg/dl Est Cr Clr Drug Dosing ml/min Est GFR ( Amer) ml/min Est GFR (Non-Af Amer) ml/min BUN/Creatinine Ratio (10-20) Glucose (70-99(Fasting)) mg/dl POC Glucose 171 H 127 H 138 H (70-99) mg/dl Calcium (8.6-10.3) mg/dl Magnesium (1.7-2.4) mg/dl Random Vancomycin (10-20) mcg/ml Adenovirus (PCR) (NotDetected) B. pertussis DNA (PCR) (NotDetected) B.parapertussis DNA PCR (NotDetected) C. pneumoniae DNA (PCR) (NotDetected) Coronavirus OC43 (PCR) (NotDetected) Coronavirus HKU1 (PCR) (NotDetected) Coronavirus 229E (PCR) (NotDetected) SARS-CoV-2 (PCR) (NotDetected) Coronavirus NL63 (PCR) (NotDetected) Human Metapneumovir PCR (NotDetected) Influenza Type A (PCR) (NotDetected) Influenza Type B (PCR) (NotDetected) M. pneumoniae (PCR) (NotDetected) Parainfluenza 1 (PCR) (NotDetected) Parainfluenza 2 (PCR) (NotDetected) Parainfluenza 3 (PCR) (NotDetected) Parainfluenza 4 (PCR) (NotDetected) RSV (PCR) (NotDetected) Entero/Rhino (PCR) (NotDetected) Diagnostic Findings Head CT 08/28/23 06:28 CT head/brain wo con CLINICAL HISTORY: 57 years-old Male with Right sided weakness. Acute stroke like symptoms TECHNIQUE: Multiple axial CT images of the head were obtained without contrast. A dose lowering technique was utilized adhering to the principles of ALARA. CT DOSE: 625.8 mGy.cm COMPARISON: 08/23/2023 FINDINGS: No acute intracranial hemorrhage, midline shift, intracranial mass, hydrocephalus, territorial ischemia or abnormal extra-axial collection. Inv olutional changes with chronic microvascular ischemic disease. The calvarium is intact. There is atherosclerosis with prominence and tortuosity of the left vertebral and basilar arteries. Prominent atherosclerosis of the distal internal carotid arteries. The paranasal sinuses, mastoid air cells, and middle ear cavities are clear. IMPRESSION: No acute intracranial abnormality identified. ACT 112: Negative or not required by law. The above report was generated using voice recognition software. It may contain grammatical, syntax or spelling errors. Electronically signed by: Eugene Navas M.D. 08/28/2023 9:33 AM Brain MRI 08/28/23 11:41 Brain MRI WITH AND WITHOUT CONTRAST HISTORY: mental status changes,post-cardiac arrest TECHNIQUE: Multiplanar multisequence MRI of the brain was performed both before and after the intravenous administration of contrast. COMPARISON STUDY: Head CT 08/28/2023. FINDINGS: There is an 8 mm focus of restricted diffusion within the right frontal lobe on axial image 15. There is additional punctate focus of restricted diffusion within the right parietal periventricular white matter on image 16. These are consistent with small acute infarcts. There may be 2 additional punctate foci of restricted diffusion within the left posterior occipital lobe on image 11 and within the left cerebellar hemisphere in image 6. These could represent an additional punctate acute infarcts versus artifact. The midline structures are intact. The ventricles and sulci demonstrate mild age-related involutional changes. Periventricular matter T2 hyperintensity is nonspecific but favors mild microvascular ischemic change. Trace fluid level within the left sphenoid sinus. Trace mastoid effusions. The major vascular flow-voids at the skull base are maintained. There are multiple old punctate lacunar infarcts seen within the cerebellar hemispheres. There is no mass, hematoma, or midline shift. The orbits are unremarkable. Postcontrast sequences show no areas of abnormal enhancement. Susceptibility artifact noted within the right thalamus consistent with hemosiderin in the setting of an old hemorrhagic infarct. IMPRESSION: 1. There are 2 subcentimeter acute infarcts within the right frontal and parietal lobes as described above. 2. There are 2 additional questionable punctate acute infarcts within the left occipital lobe and left cerebellar hemisphere. 3. Old additional infarcts within the right thalamus and cerebellar hemispheres. 4. Atrophy and microvascular ischemic changes. 5. Trace fluid level within the left sphenoid sinus. ACT 112: Negative or not required by law. Electronically signed by: Ulises Grant M.D. 08/28/2023 4:39 PM Carotid Doppler Study 08/28/23 16:50 BILATERAL CAROTID DOPPLER STUDY HISTORY: Multifocal strokes. COMPARISON: None. TECHNIQUE: Real-time, grayscale, and color Doppler sonography of the carotid arteries was performed. Imaging reviewed in the transverse and longitudinal planes. All measurements were calculated based on NASCET criteria. FINDINGS: Antegrade flow is seen in the bilateral vertebral arteries. Mild calcified plaque within the bilateral carotid bifurcations. The peak systolic velocity within the right ICA is 32 cm/s. The right systolic ratio is 0.5. The peak systolic velocity within the left ICA is 38 cm/s. The left systolic ratio is 0.5. IMPRESSION: No hemodynamically significant stenosis seen within the carotid arteries. ACT 112: Negative or not required by law. Electronically signed by: Ulises Grant M.D. 08/29/2023 6:54 AM Videofluoroscopic Swallow 08/29/23 14:15 MODIFIED BARIUM SWALLOW CLINICAL HISTORY: assess for aspiration COMPARISON STUDY: None. FLUOROSCOPY TIME: 1.27 minutes. Ka, r: 18.2 mGy. TECHNIQUE: A modified barium swallow was performed in conjunction with Speech Pathology. The patient ingested varying consistencies of barium containing material. Video fluoroscopy was performed. FINDINGS: Premature spillage with delayed initiation of swallowing mechanism was noted with thin liquids by spoon. This resulted in tracheal aspiration. There is also tracheal aspiration with swallows of thin liquids by cup. There was no aspiration with nectar thick liquids or pudding consistencies. IMPRESSION: 1. Tracheal aspiration with thin liquids, as described above. Premature spillage with delayed initiation of the swallowing mechanism. 2. No aspiration with nectar thick liquids or pudding consistencies. 3. Full recommendations by Speech pathology to follow. ACT 112: Negative or not required by law. Electronically signed by: Blaise Mckeon M.D. 08/29/2023 5:07 PM Abdomen/Pelvis CTA 08/30/23 18:55 CR Exam(s): CTA ABDOMEN + PELVIS With Contrast IV Amt: 118 ml optiray 320 EXAM: CT Angiography Abdomen and Pelvis With Intravenous Contrast CLINICAL HISTORY: Concern for active bleed. TECHNIQUE: Axial computed tomographic angiography images of the abdomen and pelvis with intravenous contrast. CTDI is 81.21 mGy and DLP is 2131.52 mGy-cm. Automated exposure control was utilized for the study. A dose lowering technique was utilized adhering to the principles of ALARA. MIP reconstructed images were created and reviewed. CONTRAST: Patient received 118 ml optiray 320 of IV contrast COMPARISON: CT abdomen and pelvis 08/30/2023 FINDINGS: VASCULATURE: Aorta: Mild atherosclerosis of the aorta is noted. Mild atherosclerosis. No abdominal aortic aneurysm. No dissection. Celiac trunk and mesenteric arteries: No acute findings. No occlusion or significant stenosis. Renal arteries: There is atherosclerosis of the origin of both renal arteries without significant stenosis. There is an accessory right renal artery. Iliac arteries: There is atherosclerosis of the bilateral common, internal and external iliac arteries without significant stenosis. Lung bases: Unremarkable. No mass. No consolidation. ABDOMEN: Liver: Unremarkable. No mass. Gallbladder and bile ducts: Cholecystectomy. Pancreas: Unremarkable. No ductal dilation. No mass. Spleen: Unremarkable. No splenomegaly. Adrenals: Unremarkable. No mass. Kidneys and ureters: Unremarkable. No hydronephrosis. No solid mass. Stomach and bowel: Unremarkable. No obstruction. No mucosal thickening. PELVIS: Appendix: No findings to suggest acute appendicitis. Bladder: A Davis catheter is present. Reproductive: Unremarkable as visualized. ABDOMEN and PELVIS: Intraperitoneal space: Unremarkable. No significant fluid collection. No free air. Retroperitoneal space: There is a small amount of active bleeding of the stable right retroperitoneal hematoma. A approximately 6 x 4 x 10 cm right iliopsoas hematoma is also present, and this hematoma however does not demonstrate active bleeding. Bones/joints: There are degenerative changes of the spine. No acute fracture. Soft tissues: Marked nonspecific body wall edema. Small bilateral fat-containing inguinal hernias. Lymph nodes: Unremarkable. No enlarged lymph nodes. IMPRESSION: 1. There is a small amount of active bleeding of the stable right retroperitoneal hematoma. 2. A approximately 6 x 4 x 10 cm right iliopsoas hematoma is also present, and this hematoma however does not demonstrate active bleeding. 3. Marked body wall edema. Communications: Call Doctor Above results Electronically signed by: [place]ia Hanson MD 08/30/23 20:08 PM Retrograde Pyelogram 08/31/23 00:00 FL retrograde includes kub CLINICAL HISTORY: LEFT STENT PLACEMENT COMPARISON STUDY: None. FLUOROSCOPY TIME: 10 seconds FLUOROSCOPY IMAGES: 4 Exposure dose: Not obtained. FINDINGS: Retrograde opacification of the left renal collecting system followed by placement of a left ureteral stent. Only the proximal portion of the stent is identified and appears in good position. IMPRESSION: Fluoroscopic assistance as above. ACT 112: Negative or not required by law. Electronically signed by: Ulises Grant M.D. 08/31/2023 4:32 PM Abdomen/Pelvis CT 09/05/23 20:26 Exam(s): CT ABDOMEN + PELVIS Without Contrast EXAM: CT Abdomen and Pelvis Without Intravenous Contrast CLINICAL HISTORY: New Abdominal Pain- concern for GI bleed. TECHNIQUE: Axial computed tomography images of the abdomen and pelvis without intravenous contrast. CTDI is 33.9 mGy and DLP is 2000.57 mGy-cm. Automated exposure control was utilized for the study. A dose lowering technique was utilized adhering to the principles of ALARA. COMPARISON: CT abdomen and pelvis 08/30/2023. FINDINGS: Lung bases: See below. Pleural space: Small right pleural effusion with adjacent atelectasis. ABDOMEN: Liver: Unremarkable. Gallbladder and bile ducts: Question a gallstone of the remnant cystic duct. Pancreas: Unremarkable. No ductal dilation. Spleen: Unremarkable. No splenomegaly. Adrenals: Unremarkable. No mass. Kidneys and ureters: There is a left ureteral stent with minimal hydronephrosis and gas in the collecting system. Stomach and bowel: Diverticulosis. No obstruction. No mucosal thickening. PELVIS: Appendix: No findings to suggest acute appendicitis. Bladder: A Davis catheter is present. No stones. Reproductive: Unremarkable as visualized. ABDOMEN and PELVIS: Intraperitoneal space: Unremarkable. No free air. No significant fluid collection. Retroperitoneal space: Stable right iliopsoas hematoma with extension into the retroperitoneum. Bones/joints: There are degenerative changes of the spine. No acute fracture. Marked nonspecific body wall edema. No dislocation. Soft tissues: Small bilateral fat-containing inguinal hernias. Vasculature: Mild atherosclerosis. No abdominal aortic aneurysm. Lymph nodes: Unremarkable. No enlarged lymph nodes. IMPRESSION: 1. Stable right iliopsoas hematoma with extension into the retroperitoneum. 2. There is a left ureteral stent with minimal hydronephrosis and gas in the collecting system. Cannot exclude infection. 3. Marked nonspecific body wall edema. 4. Question a gallstone of the remnant cystic duct. 5. Small right pleural effusion with adjacent atelectasis. 6. Diverticulosis. Electronically signed by: [place]ia Hanson MD 09/05/23 22:12 PM Chest X-Ray 09/11/23 21:10 XR chest 1V portable CLINICAL HISTORY: cough, hypoxia TECHNIQUE: Single frontal radiograph of the chest was obtained. Comparison: Comparison is made to chest radiograph 09/01/2023 FINDINGS: Median sternotomy wires are seen. The cardiomediastinal silhouette is normal. Lungs are underinflated but clear. No evidence of pleural effusion or pneumothor ax. IMPRESSION: No acute abnormalities and in particular no radiographic evidence of pneumonia. ACT 112: Negative or not required by law. Electronically signed by: Aj Shipley M.D. 09/12/2023 8:[address] 09/11/23 22:34 Exam(s): CT CHEST Without Contrast EXAM: CT Chest Without Intravenous Contrast CLINICAL HISTORY: Reason for exam: hypoxia. TECHNIQUE: Axial computed tomography images of the chest without intravenous contrast. CTDI is 23.19 mGy and DLP is 760.88 mGy-cm. Automated exposure control was utilized for the study. A dose lowering technique was utilized adhering to the principles of ALARA. COMPARISON: No relevant prior studies available. FINDINGS: Lungs: Airspace consolidation at the RIGHT lung base, consistent with aspiration pneumonia. Aspirated debris is present in the RIGHT lower lobe bronchus. No mass. Pleural space: Unremarkable. No pneumothorax. No significant effusion. Heart: Cardiomegaly. Prosthetic aortic valve. No significant pericardial effusion. No significant coronary artery calcifications. Bones/joints: Sternotomy wires. Degenerative changes of the spine. No acute fracture. No dislocation. Soft tissues: Unremarkable. Vasculature: Atherosclerotic changes of the aorta. No thoracic aortic aneurysm. Lymph nodes: Unremarkable. No enlarged lymph nodes. Gallbladder and bile ducts: Cholecystectomy. IMPRESSION: Airspace consolidation at the RIGHT lung base, consistent with aspiration pneumonia. Aspirated debris is present in the RIGHT lower lobe bronchus. Electronically signed by: Ayad Mari MD 09/12/23 00:45 AM PG Care Time/CCT Total # of Minutes Spent Total Time Spent with Patient: Total time spent is greater than 50% in coordination of care (as documented) at patient's floor/unit and/or counseling patient: I spent 95 minutes overall addressing this case: 15 min in medical data review/discussion with referring provider(s) and/or preparation for the visit 15 min in direct interaction with the patient/exam 40 min in Advance Care Planning/Goals of Care discussions as detailed above in note (must be >16min) 10 min in subsequent review and synthesis of assessment and plan 15 min communicating with other providers regarding the patient's case: Advanced Care Planning 97119 Advanced Care Planning 30 Min [id number] Advanced Care Planning Additional 30 Min [place] [address] SUB INP/OBS CARE 3/50MIN (25 - SIGNIFICANT, SEPARATELY IDENTIFIABLE ) Patient Type Established Medical Decision Making High Complexity Diagnoses Swallowing dysfunction R13.10 Weakness generalized R53.1 Dyspnea and respiratory abnormalities R06.00; R06.89 Advanced care planning/counseling discussion Z71.89 Palliative care by specialist Z51.5 Additional Codes Advanced Care Planning - 23081 Advanced Care Planning 30 Min: 87942 Advanced Care Planning 30 Min ([id number]) Advanced Care Planning - 18044 Advanced Care Planning Additional 30 Min: 01801 Advanced Care Planning Additional 30 Min ([id number])
[2023-09-14] MEDS: POTASSIUM CHLORIDE 20 MEQ/15 ML UDC PO STA (11:29)
--- NOTE | 2023-09-14 14:45 | Hospitalist Progress Note ---
Date of Service September 14, 2023 Assessment & Plan (1) Cardiac arrest: Plan: First cardiac arrest was outside of the hospital. This was secondary to septic shock. Extubated on 08/24, off of pressors. Patient recovered from it and was transferred out of the ICU. Still on treatment for septicemia. Second cardiac arrest was on 08/29, secondary to hemorrhagic shock from retroperitoneal and intramuscular bleed. Anticoagulation has been held Patient received 2 units PRBC, protamine and FFP on 08/29, 2 more units PRBC on 08/30. 2 more units PRBC on 09/01. Hemoglobin stable Heparin drip started 09/03. Switched to Lovenox 09/10 as patient lost his IV site. No active bleed anywhere. Now on Coumadin since 09/07 Goals of care has been changed to comfort directed measures. I have stopped Lovenox as the sticks are not comfortable. I am continuing the Coumadin for the time being. I have stopped blood draws, fingersticks, monitor. I am continuing the antibiotics for the time being until it can be discussed further. I am stopping some of the medications that are not comfort directed. (2) Aspiration pneumonia of both lower lobes: Plan: Suspected aspiration pneumonia in both lower lobes on admission but repeat chest x-ray is now clear. speech therapy following as he did aspirate at the bedside of thin liquids with water on 08/27 in the setting of newly diagnosed acute strokes On the night of 09/10, the patient aspirated. Had increased oxygen demands. After suctioning, oxygen requirements improved. He is now on clindamycin. Palliative care met with the patient and spoke to his . Decision has been made to proceed towards comfort directed measures. The patient wants to eat. He has been offered p.o. diet with permissive aspiration for comfort. The patient does not want a feeding tube. (3) Chronic anticoagulation: Plan: With Coumadin. He has a mechanical valve and target INR is 2.5-3.5 INR was subtherapeutic at 2 on 08/29 and thus the patient was started on Lovenox bridge. He then had a retroperitoneal hematoma leading to hemorrhagic shock and cardiac arrest. Currently all anticoagulation on hold Dilemma with anticoagulation Without anticoagulation, mechanical valves will clot With anticoagulation, recently had internal bleeding leading to cardiac arrest. Resuming anticoagulation carries bleeding risk. We are in a facility where IR will not be able to stop the bleeding immediately. Transfer to a tertiary care center as an option was offered but the declined. Hemoglobin has been stable. Spoke to and started him on heparin drip on 09/03. Hemoglobin stable on the heparin drip changed CODE STATUS to DNR/DNI 09/02 after a lengthy discussion was held on the phone Decided to start the patient on Coumadin home dose 09/07. INR 1.7 today. Hemoglobin staying stable. Was started on heparin drip for bridging that was switched to Lovenox because he lost IV access. Now with comfort directed measures, decided to stop Lovenox. Continue Coumadin for the time being. (4) Bacteremia: Plan: With septicemia and septic shock-febrile, with leukocytosis, septic shock and PEA arrest on arrival Aerococcus viridans and Proteus isolated in blood cultures. There is also coagulase-negative Staphylococcus which is likely a contaminant. His urine culture also grew Proteus initially and again on 08/27 Aerococcus is also most commonly a organism as per ID. Urine is most likely source but there is also a sacral wound. Sacral wound growing Pseudomonas and Cate, likely colonization Appreciate ID consultation DEO is indicated given multiple embolic appearing strokes-could be septic emboli. DEO was being planned 08/29. However the patient went into cardiac arrest and the procedure was postponed. Currently the patient is on ceftriaxone, vancomycin per ID recommendations Repeat blood cultures on 08/25, 08/27 and 08/29 remain no growth to date Repeat urine culture on 08/27 with Proteus despite ceftriaxone Urology did cystoscopy and left ureteral stent placement 08/30 Continue vancomycin for coverage for the Aerococcus Continue ceftriaxone for Proteus Follow CBC, CMP Cardiology saw him regarding DEO. We decided against DEO as it would not be decisive. Even if the DEO was negative, there is a strong chance that he did have septic embolization leading to his strokes previously. Moreover his TTE from 08/28 and 09/11 showed a mobile echodensity involving the aortic valve which may represent a vegetation. We decided to complete 6 weeks of IV antibiotics, assuming that this is endocarditis. Now with comfort directed measures, the plan to continue 6 weeks of antibiotics will need to be revisited with the family. (5) Acute metabolic encephalopathy: Plan: Started around 08/25 as per patient's but worsened overnight on 08/26 and 08/27 with increased weakness, decreased responsiveness, mostly nonverbal Lactate elevated but otherwise procalcitonin trending downward, renal failure is resolved, some hypokalemia but not severe, sepsis is improving, afebrile Initially thought could be withdrawal from not receiving home Lyrica, gabapentin, or oxycodone CT head negative, but MRI brain on 08/27 showed multiple acute strokes-likely culprit Treating strokes Continue antibiotic therapy for bacteremia (6) Acute CVA (cerebrovascular accident): Plan: Brain MRI ordered on 08/27 due to ongoing expressive aphasia and metabolic encephalopathy, found multiple acute strokes-2 subcentimeter in right frontal and parietal lobes, 2 additional questionable punctate acute infarcts in left occipital and left cerebellar hemisphere He was only off of anticoagulation for 1-2 days at the most during this hospitalization after his heparin drip was discontinued for sacral wound bleeding-heparin drip was resumed but due to compatibility issues and poor IV access, was switched to Lovenox SQ 1 mg/kg twice daily. Seems less likely to be cardioembolic from clot, however could be septic emboli from endocarditis Could be from CPR/resuscitation and aortic arch plaque rupture? Dysphagia improved and right-sided weakness was improving. He had a video swallow on 08/28-able to advance diet to mildly thickened liquids and pured food Holding statin due to daptomycin therapy and also patient not able to take p.o. safely Speech therapy consulted again after the second cardiac arrest Carotid Dopplers negative Continue neuro checks and stroke scale Lipid panel with very low cholesterol, hemoglobin A1c severely elevated at 11.0%-he is not on any diabetes medications-diabetes control addressed Neurology consult placed-thinks strokes due to sepsis, thinks that aspirin is not necessary but patient was on aspirin prior to admission for his previous cardiac issues so was continued. Now comfort care. (7) Atrial fibrillation: Plan: Developed August 25 p.m. and is new onset for patient Heparin drip was started but subsequently discontinued due to bleeding from the freshly debrided sacral decubitus. Was switched to therapeutic Lovenox He was treated for Coumadin toxicity with parenteral vitamin K on August 25, and INR was subtherapeutic Coumadin 7.5 mg was administered x 1 on 08/26 but then held due to NPO status--> resumed 08/29 as now able to take po Was started on Lovenox SQ 100 Mg every 12 hours for bridging On 08/29, had hemorrhagic shock leading to PEA arrest All anticoagulation was held due to retroperitoneal bleed and hemorrhagic shock. Resumed heparin drip 09/03 without bolus. Coumadin started 09/07. Switched from heparin drip to Lovenox 09/10 because the patient lost IV site. Discontinued Lovenox today 09/13 is comfort care. Continue Coumadin for the time being. Further discussions will need to be made Now on metoprolol 25 mg p.o. twice daily Monitor on telemetry (8) Decubitus ulcer: Plan: Debrided on August 25. Some minor bleeding occurred with heparin drip on August 25 and heparin drip was placed on hold and then was put back on anticoagulation. Currently in hemorrhagic shock due to retroperitoneal bleed. All anticoagulation on hold Continue local care. Appreciate general surgery consultation and recommendations-appreciate bedside debridement Appears blackened in color on 08/29 but Surgeon used silver nitrate to treat the bleeding Wound cx growing Pseudomonas and Cate. Likely to be colonization Wound care on board (9) Respiratory failure: Plan: Acute hypoxic respiratory failure. He was extubated on the morning of August 24. Resolved. Reintubated as part of code on 08/29. Now extubated 08/31. (10) Uncontrolled diabetes mellitus with hyperglycemia: Plan: Type 2 diabetes. His hemoglobin A1c is severely elevated at 11.0% Patient's reports that he was started on Lantus 60 units at bedtime but she only gave it to him once and he became significantly hypoglycemic and delirious and she has been fearful to give it ever since. She does give him occasional NovoLog during the day with meals when his blood sugar is elevated Currently on sliding scale coverage and basal insulin therapy with minimal doses as he has been mostly n.p.o Appreciate conservation educator counseling. Diabetes counselor concerned about poor oral intake. Per , he does not like the pured diet and thus is not eating enough. 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 On amlodipine 10 and metoprolol 25. Resumed Lasix 20 mg q. other day. May continue for the time being. Now that comfort care, may consider discontinuing some of these medications. (13) Gout: Plan: Hold home allopurinol (14) BPH w urinary obs/LUTS: Plan: Davis catheter in place (15) Hypokalemia: Plan: Follow BMP and magnesium Replete (16) History of aortic valve replacement with metallic valve: Plan: Noted, also with repair of aortic aneurysm at that time (17) Hyperlipidemia: Plan: Resume statin (18) Peripheral neuropathy: Plan: With chronic pain, takes pregabalin, gabapentin, and oxycodone as needed Plan 09/02: declined transfer to a tertiary facility. She changed his CODE STATUS to DNR/DNI. If his condition declines, she will choose comfort measures. 09/03: Heparin drip resumed cautiously after speaking to . 09/05: Patient does not want feeding tube 09/07: Started Coumadin 09/10: Aspiration 09/13: Comfort care Admission and Anticipated Discharge Date Admission Date: August 23, 2023 Subjective I had palliative care see the patient and talk to his again. Decision has been made to pursue comfort directed measures. The patient wants to eat. He will have a p.o. diet with permissive aspiration for comfort. I met with the patient after palliative care spoke to him. He seems to be at ease with the decision. Review of Systems Review of Systems: All systems reviewed & are unremarkable except as noted in Subjective Physical Exam Physical Exam: General: Awake, able to hold a conversation even though his voice is weak Heart: S1, S2/regular rate and rhythm, no murmur rubs or gallops Lungs: Clear to auscultation bilaterally. Normal effort Abdomen: Soft/nontender/nondistended. No hepatosplenomegaly Extremities: No clubbing/cyanosis. 1+ pitting bilateral edema Behavior: Appropriate, cooperative Results & Data Results & Data Vital Signs (Past 12 Hours) Vital Signs Temp Pulse Pulse Resp BP Pulse Ox O2 Del Method 09/14/23 11:22 36.8 C 81 21 125/85 98 Nasal Cannula 09/14/23 08:44 36.6 C 102 H 27 H 127/91 100 Nasal Cannula 09/14/23 08:00 Room Air 09/14/23 07:24 96 H 09/14/23 07:17 09/14/23 03:17 36.5 C 93 H 20 129/93 100 CPAP O2 Flow Rate 09/14/23 11:22 4 05/09/24 08:44 4 09/14/23 08:00 09/14/23 07:24 09/14/23 07:17 4 09/14/23 03:17 Laboratory Results Abnormal lab results 09/13/23 09/13/23 09/14/23 Range/Units 14:18 18:19 06:48 RBC 3.35 L (4.70-6.10) M/uL Hgb 9.3 L (14.0-18.0) g/dl Hct 29.0 L (42.0-52.0) % RDW Std Deviation 53.8 H (36.4-46.3) fL RDW Coeff of Malika 17.0 H (11.5-14.5) % PT 17.7 H (9.0-12.0) Seconds INR 1.7 H (0.9-1.1) Potassium 3.4 L (3.5-5.1) mmol/L BUN/Creatinine Ratio 23.6 H (10-20) POC Glucose 118 H (70-99) mg/dl Calcium 7.7 L (8.6-10.3) mg/dl Random Vancomycin 22.1 H (10-20) mcg/ml PG Care Time/CCT Total # of Minutes Spent Total Time Spent with Patient: Total time spent is greater than 50% in coordination of care (as documented) at patient's floor/unit and/or counseling patient: Coding Level of Care Code 07540 SUB INP/OBS CARE 2/35MIN Diagnoses Cardiac arrest I46.9 Aspiration pneumonia of both lower lobes J69.0 Chronic anticoagulation Z79.01 Bacteremia R78.81 Acute metabolic encephalopathy G93.41 Acute CVA (cerebrovascular accident) I63.9 Atrial fibrillation I48.91 Decubitus ulcer L89.90 Respiratory failure J96.00 Chronicity: acute Respiratory failure complication: unspecified whether with hypoxia or hypercapnia Uncontrolled diabetes mellitus with hyperglycemia E11.65 History of stroke Z86.73 Hypertension I10 Gout M10.9 BPH w urinary obs/LUTS N40.1; N13.8 Hypokalemia E87.6 History of aortic valve replacement with metallic valve Z95.4 Hyperlipidemia E78.5 Peripheral neuropathy G62.9 (9) Respiratory failure Chronicity: acute Respiratory failure complication: unspecified whether with hypoxia or hypercapnia Qualified Code(s): J96.00 - Acute respiratory failure, unspecified whether with hypoxia or hypercapnia
[2023-09-15] MEDS: ACETAMINOPHEN 325 MG TAB PO PRN (03:01)
[2023-09-15 11:31] LABS: Creatinine Clr Calc Pharmacy 144.5 ml/min; Est GFR (African American) 122.8 ml/min; Est GFR (Non-African American) 105.9 ml/min
--- NOTE | 2023-09-15 11:54 | Pharmacy Report ---
Pharmacy PK ABX Note - Date of Service September 15, 2023 - Assessment and Plan Assessment 09/14: * Reviewed vancomycin level, predicting therapeutic AUC/JANICE with low probability, will decrease frequency for better probability of goal AUC/JANICE attainment due to severity of infection. 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 * SCr up-trending (0.55-->0.69-->0.8-->0.91). Plan for 6 weeks of therapy unless DEO performed (& no vegetation). 09/11: * Day # 14 Rocephin + Vancomycin for proteus mirabilis + aerococcus viradans bacteremia / prosthetic valve endocarditis. * Repeat BLCXs from 08/29 no growth * Clindamycin added by overnight Hospitalist due to increased oxygen needs, cough and CXR concerning for aspiration * Vanco level drawn today ~10 hrs after last dose = 24.2mcg/mL. Prior doses hung according to schedule. SCr mild increase over last 24 hrs (0.69-->0.8). Current regimen of 1gm Q 12hrs is now predicted to exceed goal AUC/JANICE of 400- 600. Will change dose to 750mg IV Q 12 hrs and delay next dose until 1800 today. F/U chemistry ordered for tomorrow AM. 09/07: * Vanc level 21.2 mcg/mL Today. SCr continues to be stable. Current plan for 6 weeks of treatment if no DEO performed (through 10/05). 09/04: * Day #5 of resumed vancomycin therapy. Remains on ceftriaxone as well. * Vanc level 19.7 mcg/mL today. Kidney function stabilized. Leukocytosis also improving. DEO remains on hold. 09/02: * Day #3 of resumed vancomycin therapy. Remains on ceftriaxone as well. * Vanc level decreased to 18.9 mcg/mL today. Kidney function continues to improve. Leukocytosis also improving. 09/01: * Day #2 of resumed Vancomycin therapy. Patient also on ceftriaxone. * Level returned today at 19.7 mcg/mL which is therapeutic but at the upper limit of normal. AUC monitoring software does predict this as a therapeutic dose with AUC/JANICE of 523. * Urine output was significant yesterday but patient is receiving Lasix IV. However, SCr has starting trending back down to normal, was 1.05 early this AM and then 0.83 on repeat. * Therefore, will continue current regimen with thought that trough level will start to trend down and not become supratherapeutic. Due to concern for toxicity, will order another level tomorrow prior to the 5th dose which will represent true steady state (to a degree with changing renal function). 08/31: * vancomycin was d/c'd yesterday afternoon and daptomycin resumed. Today, ID wished to switch back to vancomycin as we have susceptibilities for the aerococcus for vancomycin but are unable to obtain this for dapto. * Patient's scr did increase again today and urine output remains low. Will proceed with caution dosing and get another level tomorrow. * Last dose of vancomycin was 08/30 ~ 0500 and last dose of dapto was 08/30 @ 1700. Given this and renal function concerns, will not re-load and start with maintenance dosing. 08/30: * 57 year old M receiving vancomycin and cefepime for treatment of bacteremia, UTI and pulmonary sources. Patient is post cardiac arrest. Pertinent microbiologic data includes: urine culture growing proteus mirabilis and blood cx growing proteus mirabilis and aerococcus viridans. CT abd/pelvis showing left obstructing uretal stone. Scr increased somewhat since yesterday. Will monitor the transiency of this in the setting of acute clinical change. Based on the rise in scr and random level this morning will decrease maintenance dose. Plan Vancomycin * Current regimen: 1500mg IV every 24 hours * Random level obtained this morning, 21.2 mcg/mL, (~12h level) predicted to achieve ssAUC 440mg/L.hr with a 68% probability of attaining goal range * Will optimize to 1500mg IV q18h due to severity of infection- predicted to achieve ssAUC 561mg/L.hr with a 96% probability of attaining goal range * Repeat level 09/16 @ 0330 or sooner if renal function worsens. Pharmacy will continue to follow and will adjust dose/frequency as necessary. Thank you. Pharmacy has transitioned to AUC monitoring for vancomycin. AUC/JANICE is the preferred PK/PD target and is associated with decreased risk of nephrotoxicity compared to traditional trough targets.
--- NOTE | 2023-09-15 17:49 | Hospitalist Progress Note ---
Date of Service September 15, 2023 Assessment & Plan (1) Cardiac arrest: Plan: First cardiac arrest was outside of the hospital. This was secondary to septic shock. Extubated on 08/24, off of pressors. Patient recovered from it and was transferred out of the ICU. Still on treatment for septicemia. Second cardiac arrest was on 08/29, secondary to hemorrhagic shock from retroperitoneal and intramuscular bleed. Anticoagulation has been held Patient received 2 units PRBC, protamine and FFP on 08/29, 2 more units PRBC on 08/30. 2 more units PRBC on 09/01. Hemoglobin stable Heparin drip started 09/03. Switched to Lovenox 09/10 as patient lost his IV site. No active bleed anywhere. Now on Coumadin since 09/07 on 09/13 INR was 1.7 Goals of care has been changed to comfort directed measures. Dr. West stopped Lovenox as the sticks are not comfortable. I am continuing the Coumadin for the time being. She stopped blood draws, fingersticks, monitor. I am continuing the antibiotics for the time being until it can be discussed further. Dr. West stopped some of the medications that are not comfort directed. Will continue to follow INR, but decrease frequency of checks Call placed and discussed with by phone. Extensive discussion, many questions and concerns. she confirmed, no feeding tube (2) Aspiration pneumonia of both lower lobes: Plan: Suspected aspiration pneumonia in both lower lobes on admission but repeat chest x-ray is now clear. speech therapy following as he did aspirate at the bedside of thin liquids with water on 08/27 in the setting of newly diagnosed acute strokes On the night of 09/10, the patient aspirated. Had increased oxygen demands. After suctioning, oxygen requirements improved. He is now on clindamycin. Palliative care met with the patient and spoke to his . Decision has been made to proceed towards comfort directed measures. The patient wants to eat. He has been offered p.o. diet with permissive aspiration for comfort. The patient does not want a feeding tube. (3) Chronic anticoagulation: Plan: With Coumadin. He has a mechanical valve and target INR is 2.5-3.5 INR was subtherapeutic at 2 on 08/29 and thus the patient was started on Lovenox bridge. He then had a retroperitoneal hematoma leading to hemorrhagic shock and cardiac arrest. Dilemma with anticoagulation Without anticoagulation, mechanical valves will clot With anticoagulation, recently had internal bleeding leading to cardiac arrest. Resuming anticoagulation carries bleeding risk. We are in a facility where IR will not be able to stop the bleeding immediately. Transfer to a tertiary care center as an option was offered but the declined. Hemoglobin has been stable. Spoke to and started him on heparin drip on 09/03, since stopped. Hemoglobin stable on the heparin drip changed CODE STATUS to DNR/DNI 09/02 after a lengthy discussion was held on the phone Decided to start the patient on Coumadin home dose 09/07. INR 1.7. Hemoglobin staying stable. Was started on heparin drip for bridging that was switched to Lovenox because he lost IV access. Now with comfort directed measures, decided to stop Lovenox. Continue Coumadin for the time being. (4) Bacteremia: Plan: With septicemia and septic shock-febrile, with leukocytosis, septic shock and PEA arrest on arrival Aerococcus viridans and Proteus isolated in blood cultures. There is also coagulase-negative Staphylococcus which is likely a contaminant. His urine culture also grew Proteus initially and again on 08/27 Aerococcus is also most commonly a organism as per ID. Urine is most likely source but there is also a sacral wound. Sacral wound growing Pseudomonas and Cate, likely colonization Appreciate ID consultation DEO is indicated given multiple embolic appearing strokes-could be septic emboli. DEO was being planned 08/29. However the patient went into cardiac arrest and the procedure was postponed. Currently the patient is on ceftriaxone, vancomycin per ID recommendations Repeat blood cultures on 08/25, 08/27 and 08/29 remain no growth to date Repeat urine culture on 08/27 with Proteus despite ceftriaxone Urology did cystoscopy and left ureteral stent placement 08/30 Continue vancomycin for coverage for the Aerococcus Continue ceftriaxone for Proteus Follow CBC, [facility] Cardiology saw him regarding DEO. We decided against DEO as it would not be decisive. Even if the DEO was negative, there is a strong chance that he did have septic embolization leading to his strokes previously. Moreover his TTE from 08/28 and 09/11 showed a mobile echodensity involving the aortic valve which may represent a vegetation. We decided to complete 6 weeks of IV antibiotics, assuming that this is endocarditis. Now with comfort directed measures, the plan to continue 6 weeks of antibiotics will need to be revisited with the fami ly. (5) Acute metabolic encephalopathy: Plan: Started around 08/25 as per patient's but worsened overnight on 08/26 and 08/27 with increased weakness, decreased responsiveness, mostly nonverbal Lactate elevated but otherwise procalcitonin trending downward, renal failure is resolved, some hypokalemia but not severe, sepsis is improving, afebrile Initially thought could be withdrawal from not receiving home Lyrica, gabapentin, or oxycodone CT head negative, but MRI brain on 08/27 showed multiple acute strokes-likely culprit Treating strokes Continue antibiotic therapy for bacteremia (6) Acute CVA (cerebrovascular accident): Plan: Brain MRI ordered on 08/27 due to ongoing expressive aphasia and metabolic encephalopathy, found multiple acute strokes-2 subcentimeter in right frontal and parietal lobes, 2 additional questionable punctate acute infarcts in left occipital and left cerebellar hemisphere He was only off of anticoagulation for 1-2 days at the most during this hospitalization after his heparin drip was discontinued for sacral wound bl eeding-heparin drip was resumed but due to compatibility issues and poor IV access, was switched to Lovenox SQ 1 mg/kg twice daily. Seems less likely to be cardioembolic from clot, however could be septic emboli from endocarditis Could be from CPR/resuscitation and aortic arch plaque rupture? Dysphagia improved and right-sided weakness was improving. He had a video swallow on 08/28-able to advance diet to mildly thickened liquids and pured food Holding statin due to daptomycin therapy and also patient not able to take p.o. safely Speech therapy consulted again after the second cardiac arrest Carotid Dopplers negative Continue neuro checks and stroke scale Lipid panel with very low cholesterol, hemoglobin A1c severely elevated at 11.0%-he is not on any diabetes medications-diabetes control addressed Neurology consult placed-thinks strokes due to sepsis, thinks that aspirin is not necessary but patient was on aspirin prior to admission for his previous cardiac issues so was continued. Now comfort care. (7) Atrial fibrillation: Plan: Developed August 25 p.m. and is new onset for patient Heparin drip was started but subsequently discontinued due to bleeding from the freshly debrided sacral decubitus. Was switched to therapeutic Lovenox He was treated for Coumadin toxicity with parenteral vitamin K on August 25, and INR was subtherapeutic Coumadin 7.5 mg was administered x 1 on 08/26 but then held due to NPO status--> resumed 08/29 as now able to take po Was started on Lovenox SQ 100 Mg every 12 hours for bridging On 08/29, had hemorrhagic shock leading to PEA arrest All anticoagulation was held due to retroperitoneal bleed and hemorrhagic shock. Resumed heparin drip 09/03 without bolus. Coumadin started 09/07. Switched from heparin drip to Lovenox 09/10 because the patient lost IV site. Discontinued Lovenox today 09/13 is comfort care. Continue Coumadin for the time being. Further discussions will need to be made Now on metoprolol 25 mg p.o. twice daily Monitor on telemetry (8) Decubitus ulcer: Plan: Debrided on August 25. Some minor bleeding occurred with heparin drip on August 25 and heparin drip was placed on hold and then was put back on anticoagulation. Was in hemorrhagic shock due to retroperitoneal bleed. All anticoagulation was on hold, now coumadin resumed Continue local care. Appreciate general surgery consultation and recommendations-appreciate bedside debridement Appears blackened in color on 08/29 but Surgeon used silver nitrate to treat the bleeding Wound cx growing Pseudomonas and Cate. Likely to be colonization Wound care on board (9) Respiratory failure: Plan: Acute hypoxic respiratory failure. He was extubated on the morning of August 24. Resolved. Reintubated as part of code on 08/29. Now extubated 08/31. (10) Uncontrolled diabetes mellitus with hyperglycemia: Plan: Type 2 diabetes. His hemoglobin A1c is severely elevated at 11.0% Patient's reports that he was started on Lantus 60 units at bedtime but she only gave it to him once and he became significantly hypoglycemic and delirious and she has been fearful to give it ever since. 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 Diabetes counselor concerned about poor oral intake. Per , he does not like the pured diet and thus is not eating enough. 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 On amlodipine 10 and metoprolol 25. Resumed Lasix 20 mg q. other day. May continue for the time being. Now that comfort care, may consider discontinuing some of these medications. (13) Gout: Plan: allopurinol resumed (14) BPH w urinary obs/LUTS: Plan: Davis catheter in place (15) Hypokalemia: Plan: Follow BMP and magnesium Replete (16) History of aortic valve replacement with metallic valve: Plan: Noted, also with repair of aortic aneurysm at that time. Valve was replaced 2010 with Bernabe-Shiley valve (17) Hyperlipidemia: Plan: statin stopped (18) Peripheral neuropathy: Plan: With chronic pain, takes pregabalin, gabapentin, and oxycodone as needed Plan 09/02: declined transfer to a tertiary facility. She changed his CODE STATUS to DNR/DNI. If his condition declines, she will choose comfort measures. 09/03: Heparin drip resumed cautiously after speaking to . 09/05: Patient does not want feeding tube 09/07: Started Coumadin 09/10: Aspiration 09/13: Comfort care Admission and Anticipated Discharge Date Admission Date: August 23, [address] West had palliative care see the patient and talk to his again. Decision has been made to pursue comfort directed measures. The patient wants to eat. He will have a p.o. diet with permissive aspiration for comfort. Dr. West met with the patient after palliative care spoke to him. He seems to be at ease with the decision. Physical Exam Physical Exam: General: Awake, able to hold a conversation even though his voice is weak Heart: S1, S2, mechanical heart valve sounds/regular rate and rhythm, no murmur rubs or gallops Lungs: Clear to auscultation bilaterally. Normal effort Abdomen: Soft/nontender/nondistended. No hepatosplenomegaly Extremities: No clubbing/cyanosis. 1+ pitting bilateral edema Behavior: Appropriate, cooperative Results & Data Results & Data Vital Signs (Past 12 Hours) Vital Signs Temp Pulse Resp BP Pulse Ox O2 Del Method 09/15/23 16:02 36.8 C 95 H 16 144/75 H 94 Room Air 09/15/23 07:35 Room Air PG Care Time/CCT Total # of Minutes Spent Total Time Spent with Patient: Total time spent is greater than 50% in coordination of care (as documented) at patient's floor/unit and/or counseling patient: Coding Level of Care Code 22311 SUB INP/OBS CARE 3/50MIN Diagnoses Cardiac arrest I46.9 Aspiration pneumonia of both lower lobes due to regurgitated food J69.0 Aspiration pneumonia type: due to regurgitated food Chronic anticoagulation Z79.01 Bacteremia R78.81 Acute metabolic encephalopathy G93.41 Acute CVA (cerebrovascular accident) I63.9 Atrial fibrillation, unspecified type I48.91 Atrial fibrillation type: unspecified Pressure injury of skin of right lower back, unspecified injury stage L89.139 Pressure injury location: lower back Pressure injury stage: unspecified pressure injury stage Laterality: right Respiratory failure J96.00 Chronicity: acute Respiratory failure complication: unspecified whether with hypoxia or hypercapnia Uncontrolled type 2 diabetes mellitus with hyperglycemia E11.65 Diabetes mellitus type: type 2 History of stroke Z86.73 Primary hypertension I10 Hypertension type: primary hypertension Chronic gout without tophus, unspecified cause, unspecified site [id number] Gout site: unspecified site Gout etiology: unspecified cause Chronicity: chronic Presence of tophus: without tophus BPH w urinary obs/LUTS N40.1; N13.8 Hypokalemia E87.6 History of aortic valve replacement with metallic valve Z95.4 Pure hypercholesterolemia E78.00 Hyperlipidemia type: pure hypercholesterolemia Peripheral polyneuropathy G62.9 Peripheral neuropathy type: polyneuropathy, unspecified Time Spent (min) 60 (2) Aspiration pneumonia of both lower lobes Aspiration pneumonia type: due to regurgitated food Qualified Code(s): J69.0 - Pneumonitis due to inhalation of food and vomit (7) Atrial fibrillation Atrial fibrillation type: unspecified Qualified Code(s): I48.91 - Unspecified atrial fibrillation (8) Decubitus ulcer Pressure injury location: lower back Pressure injury stage: unspecified pressure injury stage Laterality: right Qualified Code(s): L89.139 - Pressure ulcer of right lower back, unspecified stage (9) Respiratory failure Chronicity: acute Respiratory failure complication: unspecified whether with hypoxia or hypercapnia Qualified Code(s): J96.00 - Acute respiratory failure, unspecified whether with hypoxia or hypercapnia (10) Uncontrolled diabetes mellitus with hyperglycemia Diabetes mellitus type: type 2 Qualified Code(s): E11.65 - Type 2 diabetes mellitus with hyperglycemia (12) Hypertension Hypertension type: primary hypertension Qualified Code(s): I10 - Essential (primary) hypertension (13) Gout Gout site: unspecified site Gout etiology: unspecified cause Chronicity: chronic Presence of tophus: without tophus Qualified Code(s): [id number].[id number] - Chronic gout, unspecified, without tophus (tophi) (17) Hyperlipidemia Hyperlipidemia type: pure hypercholesterolemia Qualified Code(s): E78.00 - Pure hypercholesterolemia, unspecified (18) Peripheral neuropathy Peripheral neuropathy type: polyneuropathy, unspecified Qualified Code(s): G62.9 - Polyneuropathy, unspecified
[2023-09-15] MEDS: COLLAGENASE OINT 30 GM TUBE EXT SCH (18:27)
[2023-09-15] MEDS: VANCOMYCIN HCL 1,500 MG in SODIUM CHLORIDE 0.9% 500 ML IV SCH (18:27)
[2023-09-16 07:44] LABS: Hemoglobin 10.1 g/dl (14.0-18.0); Mean Corpuscular Hemoglobin 27.8 pg (25.0-34.0); Mean Corpuscular Hgb Conc 32.6 g/dL (32.0-36.0); Mean Corpuscular Volume 85.4 fL (80.0-100.0); Mean Platelet Volume 9.6 fL (9.4-12.4); Platelet Count 150 K/uL (130-400); RDW Coefficient of Variation 16.5 % (11.5-14.5); RDW Standard Deviation 51.7 fL (36.4-46.3); Red Blood Count 3.63 M/uL (4.70-6.10); White Blood Count 6.59 K/ul (4.8-10.8)
[2023-09-16 08:01] LABS: INR 2.2 (0.9-1.1); Prothrombin Time 21.9 Seconds (9.0-12.0)
[2023-09-16 08:07] LABS: BUN Creatinine Ratio 17.6 (10-20); Calcium 8.3 mg/dl (8.6-10.3); Creatinine Clr Calc Pharmacy 130.8 ml/min; Est GFR (African American) 117.8 ml/min; Est GFR (Non-African American) 101.7 ml/min; Potassium 3.3 mmol/L (3.5-5.1)
--- NOTE | 2023-09-16 15:28 | Hospitalist Progress Note ---
Date of Service September 16, 2023 Assessment & Plan (1) Cardiac arrest: Plan: First cardiac arrest was outside of the hospital. This was secondary to septic shock. Extubated on 08/24, off of pressors. Patient recovered from it and was transferred out of the ICU. Still on treatment for septicemia. Second cardiac arrest was on 08/29, secondary to hemorrhagic shock from retroperitoneal and intramuscular bleed. Anticoagulation was then held Patient received 2 units PRBC, protamine and FFP on 08/29, 2 more units PRBC on 08/30. 2 more units PRBC on 09/01. Hemoglobin stable Heparin drip started 09/03. Switched to Lovenox 09/10 as patient lost his IV site. No active bleed anywhere. Now on Coumadin since 09/07 on 09/13 INR was 1.7, 09/15 INR 2.2 Goals of care has been changed to comfort directed measures. Dr. West stopped Lovenox as the sticks are not comfortable. Will be continuing the Coumadin for the time being. She stopped blood draws, fingersticks, monitor. I am continuing the antibiotics for the time being until it can be discussed further. Dr. West stopped some of the medications that are not comfort directed. Will continue to follow INR, but decrease frequency of checks Call placed and discussed with by phone. Extensive discussion, many ques tions and concerns. she confirmed, no feeding tube on 09/14 and again 09/15 (2) Aspiration pneumonia of both lower lobes: Plan: Suspected aspiration pneumonia in both lower lobes on admission but repeat chest x-ray is now clear. speech therapy following as he did aspirate at the bedside of thin liquids with water on 08/27 in the setting of newly diagnosed acute strokes Remains on IV Clindamycin for aspiration PNA, started on 09/11, will check portable CXR with potential stopping of Clinda based on results On the night of 09/10, the patient aspirated. Had increased oxygen demands. After suctioning, oxygen requirements improved. He is now on clindamycin. Palliative care met with the patient and spoke to his . Decision has been made to proceed towards comfort directed measures. The patient wants to eat. He has been offered p.o. diet with permissive aspiration for comfort. The patient does not want a feeding tube. (3) Chronic anticoagulation: Plan: With Coumadin. He has a mechanical valve which was placed in 2011 and target INR is 2.5-3.5 INR was subtherapeutic at 2 on 08/29 and thus the patient was started on Lovenox bridge. He then had a retroperitoneal hematoma leading to hemorrhagic shock and cardiac arrest. Dilemma with anticoagulation Without anticoagulation, mechanical valves will clot With anticoagulation, recently had internal bleeding leading to cardiac arrest. Resuming anticoagulation carries bleeding risk. We are in a facility where IR will not be able to stop the bleeding immediately. Transfer to a tertiary care center as an option was offered but the declined. Hemoglobin has been stable. Dr West spoke to and started him on heparin drip on 09/03, since stopped. Hemoglobin stable on the heparin drip changed CODE STATUS to DNR/DNI 09/02 after a lengthy discussion was held on the phone Continue Coumadin for the time being. is aware that there is a risk of further bleeding if he has therapeutic coumdin dosing, but if he is not therapeutic there is essentially a 100% chance he will have further strokes. (4) Bacteremia: Plan: With septicemia and septic shock-febrile, with leukocytosis, septic shock and PEA arrest on arrival Aerococcus viridans and Proteus isolated in blood cultures. There is also coagulase-negative Staphylococcus which is likely a contaminant. His urine culture also grew Proteus initially and again on 08/27 Aerococcus is also most commonly a organism as per ID. Urine is most likely source but there is also a sacral wound. Sacral wound growing Pseudomonas and Cate, likely colonization Appreciate ID consultation DEO is indicated given multiple embolic appearing strokes-could be septic emboli. DEO was being planned 08/29. However the patient went into cardiac arrest and the procedure was postponed. Currently the patient is on ceftriaxone, vancomycin per ID recommendations Repeat blood cultures on 08/25, 08/27 and 08/29 remain no growth to date Repeat urine culture on 08/27 with Proteus despite ceftriaxone Urology did cystoscopy and left ureteral stent placement 08/30 Continue vancomycin for coverage for the Aerococcus started on 08/22 Continue ceftriaxone for Proteus started on 08/22 timing of stopping of abx will have to be decided Follow CBC, CMP Cardiology saw him regarding DEO. We decided against DEO as it would not be decisive. Even if the DEO was negative, there is a strong chance that he did have septic embolization leading to his strokes previously. Moreover his TTE from 08/28 and 09/11 showed a mobile echodensity involving the aortic valve which may represent a vegetation. We decided to complete 6 weeks of IV antibiotics, assuming that this is endocarditis. Now with comfort directed measures, the plan to continue 6 weeks of antibiotics will need to be revisited with the family. Discussed with , she wants abx to continue, does not want withdrawal of care, wants pt to be allowed to eat and if this requires placement on comfort care, that would be her preference. (5) Acute metabolic encephalopathy: Plan: Started around 08/25 as per patient's but worsened overnight on 08/26 and 08/27 with increased weakness, decreased responsiveness, mostly nonverbal Lactate elevated but otherwise procalcitonin trending downward, renal failure is resolved, some hypokalemia but not severe, sepsis is improving, afebrile Initially thought could be withdrawal from not receiving home Lyrica, gabapentin, or oxycodone CT head negative, but MRI brain on 08/27 showed multiple acute strokes-likely culprit Treating strokes Continue antibiotic therapy for bacteremia (6) Acute CVA (cerebrovascular accident): Plan: Brain MRI ordered on 08/27 due to ongoing expressive aphasia and metabolic encephalopathy, found multiple acute strokes-2 subcentimeter in right frontal and parietal lobes, 2 additional questionable punctate acute infarcts in left occipital and left cerebellar hemisphere He was only off of anticoagulation for 1-2 days at the most during this hospitalization after his heparin drip was discontinued for sacral wound bleeding-heparin drip was resumed but due to compatibility issues and poor IV access, was switched to Lovenox SQ 1 mg/kg twice daily. Seems less likely to be cardioembolic from clot, however could be septic emboli from endocarditis Could be from CPR/resuscitation and aortic arch plaque rupture? Dysphagia improved and right-sided weakness was improving. He had a video swallow on 08/28-able to advance diet to mildly thickened liquids and pured food Holding statin due to daptomycin therapy and also patient not able to take p.o. safely Speech therapy consulted again after the second cardiac arrest Carotid Dopplers negative Continue neuro checks and stroke scale Lipid panel with very low cholesterol, hemoglobin A1c severely elevated at 11.0%-he is not on any diabetes medications-diabetes control addressed Neurology consult placed-thinks strokes due to sepsis, thinks that aspirin is not necessary Now comfort care. (7) Atrial fibrillation: Plan: Developed August 25 p.m. and is new onset for patient Heparin drip was started but subsequently discontinued due to bleeding from the freshly debrided sacral decubitus. Was switched to therapeutic Lovenox He was treated for Coumadin toxicity with parenteral vitamin K on August 25, and INR was subtherapeutic Coumadin 7.5 mg was administered x 1 on 08/26 but then held due to NPO status--> resumed 08/29 as now able to take po Was started on Lovenox SQ 100 Mg every 12 hours for bridging On 08/29, had hemorrhagic shock leading to PEA arrest All anticoagulation was held due to retroperitoneal bleed and hemorrhagic shock. Resumed heparin drip 09/03 without bolus. Coumadin started 09/07. Switched from heparin drip to Lovenox 09/10 because the patient lost IV site. Discontinued Lovenox today 09/13 is comfort care. Continue Coumadin for the time being. Now on metoprolol 25 mg p.o. twice daily Off telemetry for past 2 days Currently, as of past 72 hrs, he remains in NSR, off telemetry (8) Decubitus ulcer: Plan: Debrided on August 25. Some minor bleeding occurred with heparin drip on August 25 and heparin drip was placed on hold and then was put back on anticoagulation. Was in hemorrhagic shock due to retroperitoneal bleed. All anticoagulation was on hold, now coumadin resumed Continue local care. Appreciate general surgery consultation and recommendations-appreciate bedside debridement Appears blackened in color on 08/29 but Surgeon used silver nitrate to treat the bleeding Wound cx growing Pseudomonas and Cate. Likely to be colonization Wound care on board Pain control, pt receiving Dilaudid. Plan is for dc to SNF, possibly Monday, will stop dilaudid and plan oxy prn (9) Respiratory failure: Plan: Acute hypoxic respiratory failure. He was extubated on the morning of August 24. Resolved. Reintubated as part of code on 08/29. Now extubated 08/31. (10) Uncontrolled diabetes mellitus with hyperglycemia: Plan: Type 2 diabetes. His hemoglobin A1c is severely elevated at 11.0% Patient's reports that he was started on Lantus 60 units at bedtime but she only gave it to him once and he became significantly hypoglycemic and delirious and she has been fearful to give it ever since. She does give him occasional NovoLog during the day with meals when his blood sugar is elevated Currently on sliding scale coverage and basal insulin therapy with minimal doses as he has been mostly n.p.o Appreciate ems educator counseling. Diabetes counselor concerned about poor oral intake. Per , he does not like the pured diet and thus is not eating enough. Plan to resume much lower doses of Lantus at home on discharge for improved diabetes control Off hypoglycemic agents. 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 On amlodipine 10 and metoprolol 25. Resumed Lasix 20 mg q. other day. May continue for the time being. Now that comfort care, may consider discontinuing some of these medications. (13) Gout: Plan: allopurinol resumed (14) BPH w urinary obs/LUTS: Plan: Davis catheter in place. Will need to continue because of significant decubitus ulcer (15) Hypokalemia: Plan: Follow BMP and magnesium Replete with KCL elixir (16) History of aortic valve replacement with metallic valve: Plan: Noted, also with repair of aortic aneurysm at that time. Valve was replaced 2010 with Bernabe-Shiley valve (17) Hyperlipidemia: Plan: statin stopped (18) Peripheral neuropathy: Plan: With chronic pain, takes pregabalin, gabapentin, and oxycodone as needed Plan 09/02: declined transfer to a tertiary facility. She changed his CODE STATUS to DNR/DNI. If his condition declines, she will choose comfort measures. 09/03: Heparin drip resumed cautiously after speaking to . 09/05: Patient does not want feeding tube 09/07: Started Coumadin 09/10: Aspiration 09/13: Comfort care Admission and Anticipated Discharge Date Admission Date: August 23, [address] West had palliative care see the patient and talk to his again. Decision has been made to pursue comfort directed measures. The patient wants to eat. He will have a p.o. diet with permissive aspiration for comfort. Dr. West met with the patient after palliative care spoke to him. He seems to be at ease with the decision. Does not appear to be in distress Physical Exam Physical Exam: General: Awake, able to hold a conversation even though his voice is weak Heart: S1, S2, mechanical heart valve sounds/regular rate and rhythm, no murmur rubs or gallops Lungs: Clear to auscultation bilaterally. Normal effort Abdomen: Soft/nontender/nondistended. No hepatosplenomegaly Extremities: No clubbing/cyanosis. 1+ pitting bilateral edema Behavior: Appropriate, cooperative Results & Data Results & Data Vital Signs (Past 12 Hours) Vital Signs Temp Pulse Resp BP Pulse Ox O2 Del Method 09/16/23 08:05 36.4 C L 80 16 156/88 H 92 Room Air 09/16/23 08:00 Room Air PG Care Time/CCT Total # of Minutes Spent Total Time Spent with Patient: Total time spent is greater than 50% in coordination of care (as documented) at patient's floor/unit and/or counseling patient: Coding Level of Care Code 61831 SUB INP/OBS CARE 3/50MIN Diagnoses Cardiac arrest I46.9 Aspiration pneumonia of both lower lobes due to regurgitated food J69.0 Aspiration pneumonia type: due to regurgitated food Chronic anticoagulation Z79.01 Bacteremia R78.81 Acute metabolic encephalopathy G93.41 Acute CVA (cerebrovascular accident) I63.9 Atrial fibrillation, unspecified type I48.91 Atrial fibrillation type: unspecified Pressure injury of skin of right lower back, unspecified injury stage L89.139 Laterality: right Pressure injury location: lower back Pressure injury stage: unspecified pressure injury stage Respiratory failure J96.00 Chronicity: acute Respiratory failure complication: unspecified whether with hypoxia or hypercapnia Uncontrolled type 2 diabetes mellitus with hyperglycemia E11.65 Diabetes mellitus type: type 2 History of stroke Z86.73 Primary hypertension I10 Hypertension type: primary hypertension Chronic gout without tophus, unspecified cause, unspecified site [id number] Chronicity: chronic Gout etiology: unspecified cause Gout site: unspecified site Presence of tophus: without tophus BPH w urinary obs/LUTS N40.1; N13.8 Hypokalemia E87.6 History of aortic valve replacement with metallic valve Z95.4 Pure hypercholesterolemia E78.00 Hyperlipidemia type: pure hypercholesterolemia Peripheral polyneuropathy G62.9 Peripheral neuropathy type: polyneuropathy, unspecified (2) Aspiration pneumonia of both lower lobes Aspiration pneumonia type: due to regurgitated food Qualified Code(s): J69.0 - Pneumonitis due to inhalation of food and vomit (7) Atrial fibrillation Atrial fibrillation type: unspecified Qualified Code(s): I48.91 - Unspecified atrial fibrillation (8) Decubitus ulcer Laterality: right Pressure injury location: lower back Pressure injury stage: unspecified pressure injury stage Qualified Code(s): L89.139 - Pressure ulcer of right lower back, unspecified stage (9) Respiratory failure Chronicity: acute Respiratory failure complication: unspecified whether with hypoxia or hypercapnia Qualified Code(s): J96.00 - Acute respiratory failure, unspecified whether with hypoxia or hypercapnia (10) Uncontrolled diabetes mellitus with hyperglycemia Diabetes mellitus type: type 2 Qualified Code(s): E11.65 - Type 2 diabetes mellitus with hyperglycemia (12) Hypertension Hypertension type: primary hypertension Qualified Code(s): I10 - Essential (primary) hypertension (13) Gout Chronicity: chronic Gout etiology: unspecified cause Gout site: unspecified site Presence of tophus: without tophus Qualified Code(s): [id number].9XX0 - Chronic gout, unspecified, without tophus (tophi) (17) Hyperlipidemia Hyperlipidemia type: pure hypercholesterolemia Qualified Code(s): E78.00 - Pure hypercholesterolemia, unspecified (18) Peripheral neuropathy Peripheral neuropathy type: polyneuropathy, unspecified Qualified Code(s): G62.9 - Polyneuropathy, unspecified
[2023-09-16] MEDS: POTASSIUM CHLORIDE 20 MEQ/15 ML UDC PO SCH (17:05)
--- NOTE | 2023-09-16 17:36 | XRay Report ---
XR chest 1V portable CLINICAL HISTORY: aspiration pneumonia TECHNIQUE: Single frontal radiograph of the chest was obtained. Comparison: Comparison is made to chest radiograph 09/11/2023 FINDINGS: Median sternotomy wires are unchanged. Aortic valvular prosthesis is seen. Lungs are underinflated bu t clear. No evidence of pleural effusion or pneumothorax. IMPRESSION: No airspace opacities are seen to suggest pneumonia. ACT 112: Negative or not required by law. Electronically signed by: Aj Shipley M.D. 09/16/2023 5:34 PM
[2023-09-16] MEDS: POTASSIUM CHLORIDE CRTAB 20 MEQ TABCR PO SCH (20:44)
[2023-09-16] MEDS: oxyCODONE HCL IR 5 MG TAB (IMMEDIATE RELEASE) PO PRN (20:45)
[2023-09-17 03:52] LABS: Creatinine Clr Calc Pharmacy 112.6 ml/min; Est GFR (African American) 110.8 ml/min; Est GFR (Non-African American) 95.6 ml/min
[2023-09-17] MEDS: VANCOMYCIN LEVEL ONE (04:32)
--- NOTE | 2023-09-17 06:20 | Communication Note ---
Date of Service: September 17, 2023 Notified by nursing that patient had increased swelling of his left hand overnight. Went to bedside, left hand was noted to have +2 pitting edema, good radial pulse and appropriate capillary refill. Right hand is without any edema. Patient denies any pain. Patient is currently on warfarin, however clot is still possible but will defer to dayteam regarding any imaging at this time.
--- NOTE | 2023-09-17 09:17 | Pharmacy Report ---
Pharmacy PK ABX Note - Date of Service September 17, 2023 - Assessment and Plan Assessment 09/15: SCR 0.67-->0.74-->0.86 this morning, continue to monitor. Level drawn today predicts above target AUC/JANICE (708 mg/L.hr) and therefore will reduce dose back to 1500 mg q24H which predicts AUC/JANICE 564 mg/L.hr with 98% probability. 09/14: * Reviewed vancomycin level, predicting therapeutic AUC/JANICE with low probability, will decrease frequency for better probability of goal AUC/JANICE attainment due to severity of infection. 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 * SCr up-trending (0.55-->0.69-->0.8-->0.91). Plan for 6 weeks of therapy unless DEO performed (& no vegetation). 09/11: * Day # 14 Rocephin + Vancomycin for proteus mirabilis + aerococcus viradans bacteremia / prosthetic valve endocarditis. * Repeat BLCXs from 08/29 no growth * Clindamycin added by overnight Hospitalist due to increased oxygen needs, cough and CXR concerning for aspiration * Vanco level drawn today ~10 hrs after last dose = 24.2mcg/mL. Prior doses hung according to schedule. SCr mild increase over last 24 hrs (0.69-->0.8). Current regimen of 1gm Q 12hrs is now predicted to exceed goal AUC/JANICE of 400- 600. Will change dose to 750mg IV Q 12 hrs and delay next dose until 1800 today. F/U chemistry ordered for tomorrow AM. 09/07: * Vanc level 21.2 mcg/mL Today. SCr continues to be stable. Current plan for 6 weeks of treatment if no DEO performed (through 10/05). 09/04: * Day #5 of resumed vancomycin therapy. Remains on ceftriaxone as well. * Vanc level 19.7 mcg/mL today. Kidney function stabilized. Leukocytosis also improving. DEO remains on hold. 09/02: * Day #3 of resumed vancomycin therapy. Remains on ceftriaxone as well. * Vanc level decreased to 18.9 mcg/mL today. Kidney function continues to improve. Leukocytosis also improving. 09/01: * Day #2 of resumed Vancomycin therapy. Patient also on ceftriaxone. * Level returned today at 19.7 mcg/mL which is therapeutic but at the upper limit of normal. AUC monitoring software does predict this as a therapeutic dose with AUC/JANICE of 523. * Urine output was significant yesterday but patient is receiving Lasix IV. However, SCr has starting trending back down to normal, was 1.05 early this AM and then 0.83 on repeat. * Therefore, will continue current regimen with thought that trough level will start to trend down and not become supratherapeutic. Due to concern for toxicity, will order another level tomorrow prior to the 5th dose which will represent true steady state (to a degree with changing renal function). 08/31: * vancomycin was d/c'd yesterday afternoon and daptomycin resumed. Today, ID wished to switch back to vancomycin as we have susceptibilities for the aerococcus for vancomycin but are unable to obtain this for dapto. * Patient's scr did increase again today and urine output remains low. Will proceed with caution dosing and get another level tomorrow. * Last dose of vancomycin was 08/30 ~ 0500 and last dose of dapto was 08/30 @ 1700. Given this and renal function concerns, will not re-load and start with maintenance dosing. 08/30: * 57 year old M receiving vancomycin and cefepime for treatment of bacteremia, UTI and pulmonary sources. Patient is post cardiac arrest. Pertinent microbiologic data includes: urine culture growing proteus mirabilis and blood cx growing proteus mirabilis and aerococcus viridans. CT abd/pelvis showing left obstructing uretal stone. Scr increased somewhat since yesterday. Will monitor the transiency of this in the setting of acute clinical change. Based on the rise in scr and random level this morning will decrease maintenance dose. Plan Vancomycin * Current regimen: 1500mg IV every 18 hours * Random level obtained this morning, 19.4 mcg/mL, predicted to achieve ssAUC 70 8 mg/L.hr- will reduce frequency * Adjust to 1500mg IV q24h -predicted to achieve ssAUC 564 mg/L.hr with a 98% probability of attaining goal range * Repeat level currently not ordered, reassess renal function in AM, level in 2- 3 days if stable Pharmacy will continue to follow and will adjust dose/frequency as necessary. Thank you. Pharmacy has transitioned to AUC monitoring for vancomycin. AUC/JANICE is the preferred PK/PD target and is associated with decreased risk of nephrotoxicity compared to traditional trough targets.
--- NOTE | 2023-09-17 14:47 | Hospitalist Progress Note ---
Date of Service September 17, 2023 Assessment & Plan (1) Cardiac arrest: Plan: First cardiac arrest was outside of the hospital. This was secondary to septic shock. Extubated on 08/24, off of pressors. Patient recovered from it and was transferred out of the ICU. Still on treatment for septicemia. Second cardiac arrest was on 08/29, secondary to hemorrhagic shock from retroperitoneal and intramuscular bleed. Anticoagulation was then held Patient received 2 units PRBC, protamine and FFP on 08/29, 2 more units PRBC on 08/30. 2 more units PRBC on 09/01. Hemoglobin stable Heparin drip started 09/03. Switched to Lovenox 09/10 as patient lost his IV site. No active bleed anywhere. Now on Coumadin since 09/07 on 09/13 INR was 1.7, 09/15 INR 2.2 Goals of care has been changed to comfort directed measures. Dr. West stopped Lovenox as the sticks are not comfortable. Will be continuing the Coumadin for the time being. She stopped blood draws, fingersticks, monitor. I am continuing the antibiotics for the time being until it can be discussed further. Dr. West stopped some of the medications that are not comfort directed. Will continue to follow INR, but decrease frequency of checks Call placed and discussed with by phone. Extensive discussion, many ques tions and concerns. she confirmed, no feeding tube on 09/14 and again 09/15 (2) Aspiration pneumonia of both lower lobes: Plan: Suspected aspiration pneumonia in both lower lobes on admission but repeat chest x-ray was clear. CXR 09/15 - [facility] speech therapy following as he did aspirate at the bedside of thin liquids with water on 08/27 in the setting of newly diagnosed acute strokes Remains on IV Clindamycin for aspiration PNA, started on 09/11, portable CXR done 09/15, will stop of Clinda based on results On the night of 09/10, the patient aspirated. Had increased oxygen demands. After suctioning, oxygen requirements improved. He is now on clindamycin. Palliative care met with the patient and spoke to his . Decision has been made to proceed towards comfort directed measures. The patient wants to eat. He has been offered p.o. diet with permissive aspiration for comfort. The patient does not want a feeding tube. (3) Chronic anticoagulation: Plan: With Coumadin. He has a mechanical valve which was placed in 2011 and target INR is 2.5-3.5 INR was subtherapeutic at 2 on 08/29 and thus the patient was started on Lovenox bridge. He then had a retroperitoneal hematoma leading to hemorrhagic shock and cardiac arrest. Dilemma with anticoagulation Without anticoagulation, mechanical valves will clot With anticoagulation, recently had internal bleeding leading to cardiac arrest. Resuming anticoagulation carries bleeding risk. We are in a facility where IR will not be able to stop the bleeding immediately. Transfer to a tertiary care center as an option was offered but the declined. Hemoglobin has been stable. Dr West spoke to and started him on heparin drip on 09/03, since stopped. Hemoglobin stable on the heparin drip changed CODE STATUS to DNR/DNI 09/02 after a lengthy discussion was held on the phone Continue Coumadin for the time being. is aware that there is a risk of further bleeding if he has therapeutic coumdin dosing, but if he is not therapeutic there is essentially a 100% chance he will have further strokes. (4) Bacteremia: Plan: With septicemia and septic shock-febrile, with leukocytosis, septic shock and PEA arrest on arrival Aerococcus viridans and Proteus isolated in blood cultures. There is also coagulase-negative Staphylococcus which is likely a contaminant. His urine culture also grew Proteus initially and again on 08/27 Aerococcus is also most commonly a organism as per ID. Urine is most likely source but there is also a sacral wound. Sacral wound growing Pseudomonas and Cate, likely colonization Appreciate ID consultation DEO is indicated given multiple embolic appearing strokes-could be septic emboli. DEO was being planned 08/29. However the patient went into cardiac arrest and the procedure was postponed. Currently the patient is on ceftriaxone, vancomycin per ID recommendations Repeat blood cultures on 08/25, 08/27 and 08/29 remain no growth to date Repeat urine culture on 08/27 with Proteus despite ceftriaxone Urology did cystoscopy and left ureteral stent placement 08/30 Continue vancomycin for coverage for the Aerococcus started on 08/22 Continue ceftriaxone for Proteus started on 08/22 timing of stopping of abx will have to be decided Follow CBC, CMP Cardiology saw him regarding DEO. We decided against DEO as it would not be decisive. Even if the DEO was negative, there is a strong chance that he did have septic embolization leading to his strokes previously. Moreover his TTE from 08/28 and 09/11 showed a mobile echodensity involving the aortic valve which may represent a vegetation. We decided to complete 6 weeks of IV antibiotics, assuming that this is endocarditis. Now with comfort directed measures, the plan to continue 6 weeks of antibiotics will need to be revisited with the family. Discussed with , she wants abx to continue, does not want withdrawal of care, wants pt to be allowed to eat and if this requires placement on comfort care, that would be her preference. (5) Acute metabolic encephalopathy: Plan: Started around 08/25 as per patient's but worsened overnight on 08/26 and 08/27 with increased weakness, decreased responsiveness, mostly nonverbal Lactate elevated but otherwise procalcitonin trending downward, renal failure is resolved, some hypokalemia but not severe, sepsis is improving, afebrile Initially thought could be withdrawal from not receiving home Lyrica, gabapentin, or oxycodone CT head negative, but MRI brain on 08/27 showed multiple acute strokes-likely culprit Treating strokes Continue antibiotic therapy for bacteremia (6) Acute CVA (cerebrovascular accident): Plan: Brain MRI ordered on 08/27 due to ongoing expressive aphasia and metabolic encephalopathy, found multiple acute strokes-2 subcentimeter in right frontal and parietal lobes, 2 additional questionable punctate acute infarcts in left occipital and left cerebellar hemisphere He was only off of anticoagulation for 1-2 days at the most during this hospitalization after his heparin drip was discontinued for sacral wound bleeding-heparin drip was resumed but due to compatibility issues and poor IV access, was switched to Lovenox SQ 1 mg/kg twice daily. Seems less likely to be cardioembolic from clot, however could be septic emboli from endocarditis Could be from CPR/resuscitation and aortic arch plaque rupture? Dysphagia improved and right-sided weakness was improving. He had a video swallow on 08/28-able to advance diet to mildly thickened liquids and pured food Holding statin due to daptomycin therapy and also patient not able to take p.o. safely Speech therapy consulted again after the second cardiac arrest Carotid Dopplers negative Continue neuro checks and stroke scale Lipid panel with very low cholesterol, hemoglobin A1c severely elevated at 11.0%-he is not on any diabetes medications-diabetes control addressed Neurology consult placed-thinks strokes due to sepsis, thinks that aspirin is not necessary Now comfort care. (7) Atrial fibrillation: Plan: Developed August 25 p.m. and is new onset for patient Heparin drip was started but subsequently discontinued due to bleeding from the freshly debrided sacral decubitus. Was switched to therapeutic Lovenox He was treated for Coumadin toxicity with parenteral vitamin K on August 25, and INR was subtherapeutic Coumadin 7.5 mg was administered x 1 on 08/26 but then held due to NPO status--> resumed 08/29 as now able to take po Was started on Lovenox SQ 100 Mg every 12 hours for bridging On 08/29, had hemorrhagic shock leading to PEA arrest All anticoagulation was held due to retroperitoneal bleed and hemorrhagic shock. Resumed heparin drip 09/03 without bolus. Coumadin started 09/07. Switched from heparin drip to Lovenox 09/10 because the patient lost IV site. Discontinued Lovenox today 09/13 is comfort care. Continue Coumadin for the time being. Now on metoprolol 25 mg p.o. twice daily Off telemetry for past 2 days Currently, as of past 72 hrs, he remains in NSR, off telemetry (8) Decubitus ulcer: Plan: Debrided on August 25. Some minor bleeding occurred with heparin drip on August 25 and heparin drip was placed on hold and then was put back on anticoagulation. Was in hemorrhagic shock due to retroperitoneal bleed. All anticoagulation was on hold, now coumadin resumed Continue local care. Appreciate general surgery consultation and recommendations-appreciate bedside debridement Appears blackened in color on 08/29 but Surgeon used silver nitrate to treat the bleeding Wound cx growing Pseudomonas and Cate. Likely to be colonization Wound care on board Pain control, pt receiving Dilaudid. Plan is for dc to SNF, possibly Monday, will stop dilaudid and plan oxy prn (9) Respiratory failure: Plan: Acute hypoxic respiratory failure. He was extubated on the morning of August 24. Resolved. Reintubated as part of code on 08/29. Now extubated 08/31. (10) Uncontrolled diabetes mellitus with hyperglycemia: Plan: Type 2 diabetes. His hemoglobin A1c is severely elevated at 11.0% Patient's reports that he was started on Lantus 60 units at bedtime but she only gave it to him once and he became significantly hypoglycemic and delirious and she has been fearful to give it ever since. She does give him occasional NovoLog during the day with meals when his blood sugar is elevated Currently on sliding scale coverage and basal insulin therapy with minimal doses as he has been mostly n.p.o Appreciate staff development educator counseling. Diabetes counselor concerned about poor oral intake. Per , he does not like the pured diet and thus is not eating enough. Plan to resume much lower doses of Lantus at home on discharge for improved diabetes control Off hypoglycemic agents. 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 On amlodipine 10 and metoprolol 25. Resumed Lasix 20 mg q. other day. May continue for the time being. Now that comfort care, may consider discontinuing some of these medications. (13) Gout: Plan: allopurinol resumed (14) BPH w urinary obs/LUTS: Plan: Davis catheter in place. Will need to continue because of significant decubitus ulcer (15) Hypokalemia: Plan: Follow BMP and magnesium Replete with KCL (contacted by nurse, he would not take Elixir, KCL changed to tablets) (16) History of aortic valve replacement with metallic valve: Plan: Noted, also with repair of aortic aneurysm at that time. Valve was replaced 201 with Bernabe-Shiley valve (17) Hyperlipidemia: Plan: statin stopped (18) Peripheral neuropathy: Plan: With chronic pain, takes pregabalin, gabapentin, and oxycodone as needed Plan 09/02: declined transfer to a tertiary facility. She changed his CODE STATUS to DNR/DNI. If his condition declines, she will choose comfort measures. 09/03: Heparin drip resumed cautiously after speaking to . 09/05: Patient does not want feeding tube 09/07: Started Coumadin 09/10: Aspiration 09/13: Comfort care Admission and Anticipated Discharge Date Admission Date: August 23, 2023 Subjective Appears comfortable at present Dr West had palliative care see the patient and talk to his again. Decision has been made to pursue comfort directed measures. The patient wants to eat. He will have a p.o. diet with permissive aspiration for comfort. Dr. West met with the patient after palliative care spoke to him. He seems to be at ease with the decision. Does not appear to be in distress Physical Exam Physical Exam: General: Awake, able to hold a conversation even though his voice is weak Heart: S1, S2, mechanical heart valve sounds/regular rate and rhythm, no murmur rubs or gallops Lungs: Clear to auscultation bilaterally. Normal effort Abdomen: Soft/nontender/nondistended. No hepatosplenomegaly Extremities: No clubbing/cyanosis. 1+ pitting bilateral edema Behavior: Appropriate, cooperative Results & Data Results & Data Vital Signs (Past 12 Hours) Vital Signs O2 Del Method 09/17/23 08:00 Room Air PG Care Time/CCT Total # of Minutes Spent Total Time Spent with Patient: Total time spent is greater than 50% in coordination of care (as documented) at patient's floor/unit and/or counseling patient: Coding Level of Care Code 23727 SUB INP/OBS CARE 2/35MIN Diagnoses Cardiac arrest I46.9 Aspiration pneumonia of both lower lobes due to regurgitated food J69.0 Aspiration pneumonia type: due to regurgitated food Chronic anticoagulation Z79.01 Bacteremia R78.81 Acute metabolic encephalopathy G93.41 Acute CVA (cerebrovascular accident) I63.9 Atrial fibrillation, unspecified type I48.91 Atrial fibrillation type: unspecified Pressure injury of skin of right lower back, unspecified injury stage L89.139 Laterality: right Pressure injury location: lower back Pressure injury stage: unspecified pressure injury stage Respiratory failure J96.00 Chronicity: acute Respiratory failure complication: unspecified whether with hypoxia or hypercapnia Uncontrolled type 2 diabetes mellitus with hyperglycemia E11.65 Diabetes mellitus type: type 2 History of stroke Z86.73 Primary hypertension I10 Hypertension type: primary hypertension Chronic gout without tophus, unspecified cause, unspecified site [id number] Chronicity: chronic Gout etiology: unspecified cause Gout site: unspecified site Presence of tophus: without tophus BPH w urinary obs/LUTS N40.1; N13.8 Hypokalemia E87.6 History of aortic valve replacement with metallic valve Z95.4 Pure hypercholesterolemia E78.00 Hyperlipidemia type: pure hypercholesterolemia Peripheral polyneuropathy G62.9 Peripheral neuropathy type: polyneuropathy, unspecified (2) Aspiration pneumonia of both lower lobes Aspiration pneumonia type: due to regurgitated food Qualified Code(s): J69.0 - Pneumonitis due to inhalation of food and vomit (7) Atrial fibrillation Atrial fibrillation type: unspecified Qualified Code(s): I48.91 - Unspecified atrial fibrillation (8) Decubitus ulcer Laterality: right Pressure injury location: lower back Pressure injury stage: unspecified pressure injury stage Qualified Code(s): L89.139 - Pressure ulcer of right lower back, unspecified stage (9) Respiratory failure Chronicity: acute Respiratory failure complication: unspecified whether with hypoxia or hypercapnia Qualified Code(s): J96.00 - Acute respiratory failure, unspecified whether with hypoxia or hypercapnia (10) Uncontrolled diabetes mellitus with hyperglycemia Diabetes mellitus type: type 2 Qualified Code(s): E11.65 - Type 2 diabetes mellitus with hyperglycemia (12) Hypertension Hypertension type: primary hypertension Qualified Code(s): I10 - Essential (primary) hypertension (13) Gout Chronicity: chronic Gout etiology: unspecified cause Gout site: unspecified site Presence of tophus: without tophus Qualified Code(s): [id number].[id number] - Chronic gout, unspecified, without tophus (tophi) (17) Hyperlipidemia Hyperlipidemia type: pure hypercholesterolemia Qualified Code(s): E78.00 - Pure hypercholesterolemia, unspecified (18) Peripheral neuropathy Peripheral neuropathy type: polyneuropathy, unspecified Qualified Code(s): G62.9 - Polyneuropathy, unspecified
[2023-09-18] MEDS: VANCOMYCIN HCL 1,500 MG in SODIUM CHLORIDE 0.9% 500 ML IV SCH (04:13)
[2023-09-18 07:53] LABS: Hematocrit (blood only) 29.9 % (42.0-52.0); Hemoglobin 9.8 g/dl (14.0-18.0); Mean Corpuscular Hemoglobin 27.7 pg (25.0-34.0); Mean Corpuscular Hgb Conc 32.8 g/dL (32.0-36.0); Mean Corpuscular Volume 84.5 fL (80.0-100.0); Mean Platelet Volume 9.1 fL (9.4-12.4); Platelet Count 157 K/uL (130-400); RDW Coefficient of Variation 16.3 % (11.5-14.5); RDW Standard Deviation 50.5 fL (36.4-46.3); Red Blood Count 3.54 M/uL (4.70-6.10); White Blood Count 5.11 K/ul (4.8-10.8)
[2023-09-18 07:57] LABS: INR 2.3 (0.9-1.1); Prothrombin Time 23.3 Seconds (9.0-12.0)
[2023-09-18 08:48] LABS: Albumin Globulin Ratio 0.7 (0.9-2); Albumin Level 2.5 gm/dl (3.4-5.0); BUN Creatinine Ratio 22.2 (10-20); Bilirubin,Total 0.7 mg/dl (0.2-1.0); Calcium 8.2 mg/dl (8.6-10.3); Creatinine Clr Calc Pharmacy 134.5 ml/min; Est GFR (African American) 119.2 ml/min; Est GFR (Non-African American) 102.8 ml/min; Globulin 3.4 gm/dl (2.5-4.0); Magnesium 1.6 mg/dl (1.7-2.4); Potassium 3.5 mmol/L (3.5-5.1); Total Protein 5.9 gm/dl (6.0-8.3)
--- NOTE | 2023-09-18 18:01 | Hospitalist Progress Note ---
Date of Service September 18, 2023 Assessment & Plan (1) Cardiac arrest: Plan: First cardiac arrest was outside of the hospital. This was secondary to septic shock. Extubated on 08/24, off of pressors. Patient recovered from it and was transferred out of the ICU. Still on treatment for septicemia. Second cardiac arrest was on 08/29, secondary to hemorrhagic shock from retroperitoneal and intramuscular bleed. Anticoagulation was then held Patient received 2 units PRBC, protamine and FFP on 08/29, 2 more units PRBC on 08/30. 2 more units PRBC on 09/01. Hemoglobin stable Heparin drip started 09/03. Switched to Lovenox 09/10 as patient lost his IV site. No active bleed anywhere. Now on Coumadin since 09/07 on 09/13 INR was 1.7, 09/15 INR 2.2, 09/17 INR 2.3 Would try to maintain INR in the 2.5-2.8 range, need to balance embolic risk with hx of Aortic Mechanical Valve against episode of retroperitoneal bleed Goals of care has been changed to comfort directed measures. Dr. West stopped Lovenox as the sticks are not comfortable. Will be continuing the Coumadin for the time being. She stopped blood draws, fingersticks, monitor. I am continuing the antibiotics for the time being until it can be discussed further. Dr. West stopped some of the medications that are not comfort directed. Will continue to follow INR, but decrease frequency of checks Call placed and discussed with by phone. Extensive discussion, many questions and concerns. she confirmed, no feeding tube on 09/14 and again 09/15 (2) Aspiration pneumonia of both lower lobes: Plan: Suspected aspiration pneumonia in both lower lobes on admission but repeat chest x-ray was clear. CXR 09/15 - [facility] speech therapy following as he did aspirate at the bedside of thin liquids with water on 08/27 in the setting of newly diagnosed acute strokes He was on IV Clindamycin for aspiration PNA, started on 09/11, portable CXR done 09/15 with no airspace opacities seen, thus stopped Clinda based on results On the night of 09/10, the patient aspirated. Had increased oxygen demands. After suctioning, oxygen requirements improved. Was then on clindamycin, currently no evidence of active PNA and thus Clinda was stopped Palliative care met with the patient and spoke to his . Decision has been made to proceed towards comfort directed measures. The patient wants to eat. He has been offered p.o. diet with permissive aspiration for comfort. The patient does not want a feeding tube. was very clear that this did not mean withdrawal of care and she wishes him to continue receiving IV abx and treatment for his extensive decubitus (3) Chronic anticoagulation: Plan: With Coumadin. He has a mechanical valve which was placed in 2011 and target INR is 2.5-3.5 INR was subtherapeutic at 2 on 08/29 and thus the patient was started on Lovenox bridge. He then had a retroperitoneal hematoma leading to hemorrhagic shock and cardiac arrest. Dilemma with anticoagulation Without anticoagulation, mechanical valves will clot With anticoagulation, recently had internal bleeding leading to cardiac arrest. Resuming anticoagulation carries bleeding risk. Hemoglobin has been stable. Dr West spoke to and started him on heparin drip on 09/03, since stopped. Hemoglobin stable on the heparin drip changed CODE STATUS to DNR/DNI 09/02 after a lengthy discussion was held on the phone Continue Coumadin for the time being. is aware that there is a risk of further bleeding if he has therapeutic coumdin dosing, but if he is not the rapeutic there is essentially a 100% chance he will have further strokes. (4) Bacteremia: Plan: With septicemia and septic shock-febrile, with leukocytosis, septic shock and PEA arrest on arrival Aerococcus viridans and Proteus isolated in blood cultures. There is also coagulase-negative Staphylococcus which is likely a contaminant. His urine culture also grew Proteus initially and again on 08/27 Aerococcus is also most commonly a organism as per ID. Urine is most likely source but there is also a sacral wound. Sacral wound growing Pseudomonas and Cate, likely colonization Appreciate ID consultation DEO is indicated given multiple embolic appearing strokes-could be septic emboli. DEO was being planned 08/29. However the patient went into cardiac arrest and the procedure was postponed. Currently the patient is on ceftriaxone, vancomycin per ID recommendations Repeat blood cultures on 08/25, 08/27 and 08/29 remain no growth to date Repeat urine culture on 08/27 with Proteus despite ceftriaxone Urology did cystoscopy and left ureteral stent placement 08/30 Cardiology saw him regarding DEO. We decided against DEO as it would not be decisive. Even if the DEO was negative, there is a strong chance that he did have septic embolization leading to his strokes previously. Moreover his TTE from 08/28 and 09/11 showed a mobile echodensity involving the aortic valve which may represent a vegetation. We decided to complete 6 weeks of IV antibiotics, assuming that this is endocarditis. Now with comfort directed measures, the plan to continue 6 weeks of antibiotics will need to be revisited with the family. Discussed with , she wants abx to continue, does not want withdrawal of care, wants pt to be allowed to eat and if this requires placement on comfort care, that would be her preference. Continue vancomycin for coverage for the Aerococcus started on 08/22 Continue ceftriaxone for Proteus started on 08/22 timing of stopping of abx will have to be decided post dc, but to go until 10/[address] Cristina Cartwright, Infectious Disease, recommended follow up with outpt ID specialist to determine optimal care post 6 weeks. Follow CBC, CMP, INR q2-3 days as per preference (5) Acute metabolic encephalopathy: Plan: Started around 08/25 as per patient's but worsened overnight on 08/26 and 08/27 with increased weakness, decreased responsiveness, mostly nonverbal Lactate elevated but otherwise procalcitonin trending downward, renal failure is resolved, some hypokalemia but not severe, sepsis is improving, afebrile Initially thought could be withdrawal from not receiving home Lyrica, gabapentin, or oxycodone CT head negative, but MRI brain on 08/27 showed multiple acute strokes (most likely most likely embolic)-likely culprit, see #6 Treating strokes Continue antibiotic therapy for bacteremia (6) Acute CVA (cerebrovascular accident): Plan: Brain MRI ordered on 08/27 due to ongoing expressive aphasia and metabolic encephalopathy, found multiple acute strokes-2 subcentimeter in right frontal and parietal lobes, 2 additional questionable punctate acute infarcts in left occipital and left cerebellar hemisphere He was only off of anticoagulation for 1-2 days at the most during this hospitalization after his heparin drip was discontinued for sacral wound bleeding-heparin drip was resumed but due to compatibility issues and poor IV access, was switched to Lovenox SQ 1 mg/kg twice daily. Seems less likely to be cardioembolic from clot, however could be septic emboli from endocarditis Could be from CPR/resuscitation and aortic arch plaque rupture? Dysphagia improved and right-sided weakness was improving. He had a video swallow on 08/28-able to advance diet to mildly thickened liquids and pured food Held statin due to daptomycin therapy, since stopped, but whether resumption of Atorvastatin would be beneficial is unclear. Will resume Atorvastatin Speech therapy consulted again after the second cardiac arrest Carotid Dopplers negative Continue neuro checks and stroke scale Lipid panel with very low cholesterol, hemoglobin A1c severely elevated at 11.0%-he is not on any diabetes medications currently and glu remains in the 91- 126 range (less than expected with a1c of 11%) Neurology consult placed-thinks strokes due to sepsis, thinks that aspirin is not necessary Now comfort care. (7) Atrial fibrillation: Plan: Developed August 25 p.m. and is new onset for patient Heparin drip was started but subsequently discontinued due to bleeding from the freshly debrided sacral decubitus. Was switched to therapeutic Lovenox He was treated for Coumadin toxicity with parenteral vitamin K on August 25, and INR was subtherapeutic Coumadin 7.5 mg was administered x 1 on 08/26 but then held due to NPO status--> resumed 08/29 as now able to take po Was started on Lovenox SQ 100 Mg every 12 hours for bridging On 08/29, had hemorrhagic shock leading to PEA arrest All anticoagulation was held due to retroperitoneal bleed and hemorrhagic shock. Resumed heparin drip 09/03 without bolus. Coumadin started 09/07. Switched from heparin drip to Lovenox 09/10 because the patient lost IV site. Discontinued Lovenox today 09/13 is comfort care. Continue Coumadin for the time being. Now on metoprolol 25 mg p.o. twice daily Off telemetry for past 2 days Currently, as of past 72 hrs, he remains in NSR, off telemetry (8) Decubitus ulcer: Plan: Debrided on August 25. Some minor bleeding occurred with heparin drip on August 25 and heparin drip was placed on hold and then was put back on anticoagulation. Was in hemorrhagic shock due to retroperitoneal bleed. All anticoagulation was on hold, now coumadin resumed Continue local care. Appreciate general surgery consultation and recommendations-appreciate bedside debridement Appears blackened in color on 08/29 but Surgeon used silver nitrate to treat the bleeding Wound cx growing Pseudomonas and Cate. Likely to be colonization Wound care on board Pain control, pt receiving Dilaudid. Plan is for dc to SNF, spoke to CM, in process of arranging, stopped dilaudid and plan oxy prn (9) Respiratory failure: Plan: Acute hypoxic respiratory failure. He was extubated on the morning of August 24. Resolved. Reintubated as part of code on 08/29. Now extubated 08/31. (10) Uncontrolled diabetes mellitus with hyperglycemia: Plan: Type 2 diabetes. His hemoglobin A1c is severely elevated at 11.0% Patient's reports that he was started on Lantus 60 units at bedtime but she only gave it to him once and he became significantly hypoglycemic and delirious and she has been fearful to give it ever since. 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 Diabetes counselor concerned about poor oral intake. Per , he does not like the pured diet and thus is not eating enough. Off hypoglycemic agents. 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 On amlodipine 10 and metoprolol 25. Resumed Lasix 20 mg q. other day. May continue for the time being. Now that comfort care, may consider discontinuing some of these medications. BP 149/83 (13) Gout: Plan: allopurinol resumed (14) BPH w urinary obs/LUTS: Plan: Davis catheter in place. Will need to continue because of significant decubitus ulcer (15) Hypokalemia: Plan: Follow BMP and magnesium Replete with KCL (contacted by nurse, he would not take Elixir, KCL changed to tablets). K 3.3-->3.5 on KCl 20 Meq bid, will decrease to daily starting tomorrow (16) History of aortic valve replacement with metallic valve: Plan: Noted, also with repair of aortic aneurysm at that time. Valve was replaced 2010 with Bernabe-Shiley valve (17) Hyperlipidemia: Plan: statin will be resumed (18) Peripheral neuropathy: Plan: With chronic pain, takes pregabalin, gabapentin, and oxycodone as needed Plan 09/02: declined transfer to a tertiary facility. She changed his CODE STATUS to DNR/DNI. If his condition declines, she will choose comfort measures. 09/03: Heparin drip resumed cautiously after speaking to . 09/05: Patient does not want feeding tube 09/07: Started Coumadin 09/10: Aspiration 09/13: Comfort care Admission and Anticipated Discharge Date Admission Date: August 23, 2023 Subjective Appears comfortable at present. No obvious distress Dr West had palliative care see the patient and talk to his again. Decision has been made to pursue comfort directed measures. The patient wants to eat. He will have a p.o. diet with permissive aspiration for comfort. Dr. West met with the patient after palliative care spoke to him. He seems to be at ease with the decision. Does not appear to be in distress Physical Exam Physical Exam: General: Awake, able to hold a conversation even though his voice is weak Heart: S1, S2, mechanical heart valve sounds/regular rate and rhythm, no murmur rubs or gallops Lungs: Clear to auscultation bilaterally. Normal effort Abdomen: Soft/nontender/nondistended. No hepatosplenomegaly Extremities: No clubbing/cyanosis. 1+ pitting bilateral edema Behavior: Appropriate, cooperative Results & Data Results & Data Vital Signs (Past 12 Hours) Vital Signs Temp Pulse Resp BP Pulse Ox O2 Del Method 09/18/23 08:18 36.2 C L 85 16 149/83 H 96 Room Air 09/18/23 08:00 Room Air PG Care Time/CCT Total # of Minutes Spent Total Time Spent with Patient: Total time spent is greater than 50% in coordination of care (as documented) at patient's floor/unit and/or counseling patient: Coding Level of Care Code 77062 SUB INP/OBS CARE 2/35MIN Diagnoses Cardiac arrest I46.9 Aspiration pneumonia of both lower lobes due to regurgitated food J69.0 Aspiration pneumonia type: due to regurgitated food Chronic anticoagulation Z79.01 Bacteremia R78.81 Acute metabolic encephalopathy G93.41 Acute CVA (cerebrovascular accident) I63.9 Atrial fibrillation, unspecified type I48.91 Atrial fibrillation type: unspecified Pressure injury of skin of right lower back, unspecified injury stage L89.139 Pressure injury location: lower back Pressure injury stage: unspecified pressure injury stage Laterality: right Respiratory failure J96.00 Chronicity: acute Respiratory failure complication: unspecified whether with hypoxia or hypercapnia Uncontrolled type 2 diabetes mellitus with hyperglycemia E11.65 Diabetes mellitus type: type 2 History of stroke Z86.73 Primary hypertension I10 Hypertension type: primary hypertension Chronic gout without tophus, unspecified cause, unspecified site [id number] Gout site: unspecified site Gout etiology: unspecified cause Chronicity: chronic Presence of tophus: without tophus BPH w urinary obs/LUTS N40.1; N13.8 Hypokalemia E87.6 History of aortic valve replacement with metallic valve Z95.4 Pure hypercholesterolemia E78.00 Hyperlipidemia type: pure hypercholesterolemia Peripheral polyneuropathy G62.9 Peripheral neuropathy type: polyneuropathy, unspecified (2) Aspiration pneumonia of both lower lobes Aspiration pneumonia type: due to regurgitated food Qualified Code(s): J69.0 - Pneumonitis due to inhalation of food and vomit (7) Atrial fibrillation Atrial fibrillation type: unspecified Qualified Code(s): I48.91 - Unspecified atrial fibrillation (8) Decubitus ulcer Pressure injury location: lower back Pressure injury stage: unspecified pressure injury stage Laterality: right Qualified Code(s): L89.139 - Pressure ulcer of right lower back, unspecified stage (9) Respiratory failure Chronicity: acute Respiratory failure complication: unspecified whether with hypoxia or hypercapnia Qualified Code(s): J96.00 - Acute respiratory failure, unspecified whether with hypoxia or hypercapnia (10) Uncontrolled diabetes mellitus with hyperglycemia Diabetes mellitus type: type 2 Qualified Code(s): E11.65 - Type 2 diabetes mellitus with hyperglycemia (12) Hypertension Hypertension type: primary hypertension Qualified Code(s): I10 - Essential (primary) hypertension (13) Gout Gout site: unspecified site Gout etiology: unspecified cause Chronicity: chronic Presence of tophus: without tophus Qualified Code(s): [id number].[id number] - Chronic gout, unspecified, without tophus (tophi) (17) Hyperlipidemia Hyperlipidemia type: pure hypercholesterolemia Qualified Code(s): E78.00 - Pure hypercholesterolemia, unspecified (18) Peripheral neuropathy Peripheral neuropathy type: polyneuropathy, unspecified Qualified Code(s): G62.9 - Polyneuropathy, unspecified
[2023-09-19] MEDS: POTASSIUM CHLORIDE CRTAB 20 MEQ TABCR PO SCH (08:28)
[2023-09-19] MEDS: ATORVASTATIN 10 MG TAB PO SCH (08:29)
--- NOTE | 2023-09-19 11:30 | Hospitalist Progress Note ---
Date of Service September 19, 2023 Assessment & Plan (1) Cardiac arrest: Plan: First cardiac arrest was outside of the hospital. This was secondary to septic shock. Extubated on 08/24, off of pressors. Patient recovered from it and was transferred out of the ICU. Still on treatment for septicemia. Second cardiac arrest was on 08/29, secondary to hemorrhagic shock from retroperitoneal and intramuscular bleed. Anticoagulation was then held Patient received 2 units PRBC, protamine and FFP on 08/29, 2 more units PRBC on 08/30. 2 more units PRBC on 09/01. Hemoglobin stable Heparin drip started 09/03. Switched to Lovenox 09/10 as patient lost his IV site. No active bleed anywhere. Now on Coumadin since 09/07 on 09/13 INR was 1.7, 09/15 INR 2.2, 09/17 INR 2.3 Would try to maintain INR in the 2.5-2.8 range, need to balance embolic risk with hx of Aortic Mechanical Valve against episode of retroperitoneal bleed Goals of care has been changed to comfort directed measures. Call placed and discussed with by phone. Extensive discussion, many questions and concerns. she confirmed, no feeding tube on 09/14 and again 09/15 (2) Aspiration pneumonia of both lower lobes: Plan: Suspected aspiration pneumonia in both lower lobes on admission but repeat chest x-ray was clear. CXR 09/15 - [facility] speech therapy following as he did aspirate at the bedside of thin liquids with water on 08/27 in the setting of newly diagnosed acute strokes He was on IV Clindamycin for aspiration PNA, started on 09/11, portable CXR done 09/15 with no airspace opacities seen, thus stopped Clinda based on results On the night of 09/10, the patient aspirated. Had increased oxygen demands. After suctioning, oxygen requirements improved. Was then on clindamycin, currently no evidence of active PNA and thus Clinda was stopped Palliative care met with the patient and spoke to his . Decision has been made to proceed towards comfort directed measures. The patient wants to eat. He has been offered p.o. diet with permissive aspiration for comfort. The patient does not want a feeding tube. was very clear that this did not mean withdrawal of care and she wishes him to continue receiving IV abx and treatment for his extensive decubitus (3) Chronic anticoagulation: Plan: With Coumadin. He has a mechanical valve which was placed in 2011 and target INR is 2.5-3.5 INR was subtherapeutic at 2 on 08/29 and thus the patient was started on Lovenox bridge. He then had a retroperitoneal hematoma leading to hemorrhagic shock and cardiac arrest. Dilemma with anticoagulation Without anticoagulation, mechanical valves will clot With anticoagulation, recently had internal bleeding leading to cardiac arrest. Resuming anticoagulation carries bleeding risk. Hemoglobin has been stable. Dr West spoke to and started him on heparin drip on 09/03, since stopped. Hemoglobin stable on the heparin drip changed CODE STATUS to DNR/DNI 09/02 after a lengthy discussion was held on the phone Continue Coumadin for the time being. is aware that there is a risk of further bleeding if he has therapeutic coumdin dosing, but if he is not therapeutic there is essentially a 100% chance he will have further strokes. (4) Bacteremia: Plan: With septicemia and septic shock-febrile, with leukocytosis, septic shock and PEA arrest on arrival Aerococcus viridans and Proteus isolated in blood cultures. There is also coagulase-negative Staphylococcus which is likely a contaminant. His urine culture also grew Proteus initially and again on 08/27 Aerococcus is also most commonly a organism as per ID. Urine is most likely source but there is also a sacral wound. Sacral wound growing Pseudomonas and Cate, likely colonization Appreciate ID consultation DEO is indicated given multiple embolic appearing strokes-could be septic emboli. DEO was being planned 08/29. However the patient went into cardiac arrest and the procedure was postponed. Currently the patient is on ceftriaxone, vancomycin per ID recommendations Repeat blood cultures on 08/25, 08/27 and 08/29 remain no growth to date Repeat urine culture on 08/27 with Proteus despite ceftriaxone Urology did cystoscopy and left ureteral stent placement 08/30 Cardiology saw him regarding DEO. We decided against DEO as it would not be decisive. Even if the DEO was negative, there is a strong chance that he did have septic embolization leading to his strokes previously. Moreover his TTE from 08/28 and 09/11 showed a mobile echodensity involving the aortic valve which may represent a vegetation. We decided to complete 6 weeks of IV antibiotics, assuming that this is endocarditis. Now with comfort directed measures, the plan to continue 6 weeks of antibiotics will need to be revisited with the family. Discussed with , she wants abx to continue, does not want withdrawal of care, wants pt to be allowed to eat and if this requires placement on comfort care, that would be her preference. Continue vancomycin for coverage for the Aerococcus started on 08/22 Continue ceftriaxone for Proteus started on 08/22 timing of stopping of abx will have to be decided post dc, but to go until 10/[address] Cristina Cartwright, Infectious Disease, recommended follow up with outpt ID specialist to determine optimal care post 6 weeks. Follow CBC, CMP, INR q2-3 days as per preference (5) Acute metabolic encephalopathy: Plan: Started around 08/25 as per patient's but worsened overnight on 08/26 and 08/27 with increased weakness, decreased responsiveness, mostly nonverbal Lactate elevated but otherwise procalcitonin trending downward, renal failure is resolved, some hypokalemia but not severe, sepsis is improving, afebrile Initially thought could be withdrawal from not receiving home Lyrica, gabapentin, or oxycodone CT head negative, but MRI brain on 08/27 showed multiple acute strokes (most likely most likely embolic)-likely culprit, see #6 Treating strokes Continue antibiotic therapy for bacteremia (6) Acute CVA (cerebrovascular accident): Plan: Brain MRI ordered on 08/27 due to ongoing expressive aphasia and metabolic encephalopathy, found multiple acute strokes-2 subcentimeter in right frontal and parietal lobes, 2 additional questionable punctate acute infarcts in left occipital and left cerebellar hemisphere He was only off of anticoagulation for 1-2 days at the most during this hospitalization after his heparin drip was discontinued for sacral wound bleeding-heparin drip was resumed but due to compatibility issues and poor IV access, was switched to Lovenox SQ 1 mg/kg twice daily. Seems less likely to be cardioembolic from clot, however could be septic emboli from endocarditis Could be from CPR/resuscitation and aortic arch plaque rupture? Dysphagia improved and right-sided weakness was improving. He had a video swallow on 08/28-able to advance diet to mildly thickened liquids and pured food Held statin due to daptomycin therapy, since stopped, but whether resumption of Atorvastatin would be beneficial is unclear. Will resume Atorvastatin Speech therapy consulted again after the second cardiac arrest Carotid Dopplers negative Continue neuro checks and stroke scale Lipid panel with very low cholesterol, hemoglobin A1c severely elevated at 11.0%-he is not on any diabetes medications currently and glu remains in the 91- 126 range (less than expected with a1c of 11%) Neurology consult placed-thinks strokes due to sepsis, thinks that aspirin is not necessary Now comfort care. (7) Atrial fibrillation: Plan: Developed August 25 p.m. and is new onset for patient Heparin drip was started but subsequently discontinued due to bleeding from the freshly debrided sacral decubitus. Was switched to therapeutic Lovenox He was treated for Coumadin toxicity with parenteral vitamin K on August 25, and INR was subtherapeutic Coumadin 7.5 mg was administered x 1 on 08/26 but then held due to NPO status--> resumed 08/29 as now able to take po Was started on Lovenox SQ 100 Mg every 12 hours for bridging On 08/29, had hemorrhagic shock leading to PEA arrest All anticoagulation was held due to retroperitoneal bleed and hemorrhagic shock. Resumed heparin drip 09/03 without bolus. Coumadin started 09/07. Switched from heparin drip to Lovenox 09/10 because the patient lost IV site. Discontinued Lovenox today 09/13 is comfort care. Continue Coumadin for the time being. Now on metoprolol 25 mg p.o. twice daily Off telemetry for past 2 days Currently, as of past 72 hrs, he remains in NSR, off telemetry (8) Decubitus ulcer: Plan: Debrided on August 25. Some minor bleeding occurred with heparin drip on August 25 and heparin drip was placed on hold and then was put back on anticoagulation. Was in hemorrhagic shock due to retroperitoneal bleed. All anticoagulation was on hold, now coumadin resumed Continue local care. Appreciate general surgery consultation and recommendations-appreciate bedside debridement Appears blackened in color on 08/29 but Surgeon used silver nitrate to treat the bleeding Wound cx growing Pseudomonas and Cate. Likely to be colonization Wound care on board Pain control, pt receiving Dilaudid. Plan is for dc to SNF, spoke to CM, in process of arranging, stopped dilaudid and plan oxy prn (9) Respiratory failure: Plan: Acute hypoxic respiratory failure. He was extubated on the morning of August 24. Resolved. Reintubated as part of code on 08/29. Now extubated 08/31. (10) Uncontrolled diabetes mellitus with hyperglycemia: Plan: Type 2 diabetes. His hemoglobin A1c is severely elevated at 11.0% Patient's reports that he was started on Lantus 60 units at bedtime but she only gave it to him once and he became significantly hypoglycemic and delirious and she has been fearful to give it ever since. She does give him occasional NovoLog during the day with meals when his blood sugar is elevated Currently on sliding scale coverage and basal insulin therapy with minimal doses as he has been mostly n.p.o Appreciate clinical educator counseling. Diabetes counselor concerned about poor oral intake. Per , he does not like the pured diet and thus is not eating enough. Off hypoglycemic agents. 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 On amlodipine 10 and metoprolol 25. Resumed Lasix 20 mg q. other day. May continue for the time being. Now that comfort care, may consider discontinuing some of these medications. (13) Gout: Plan: allopurinol resumed (14) BPH w urinary obs/LUTS: Plan: Davis catheter in place. Will need to continue because of significant decubitus ulcer (15) Hypokalemia: Plan: resolved (16) History of aortic valve replacement with metallic valve: Plan: Noted, also with repair of aortic aneurysm at that time. Valve was replaced 2010 with Bernabe-Shiley valve (17) Hyperlipidemia: Plan: statin will be resumed (18) Peripheral neuropathy: Plan: With chronic pain, takes pregabalin, gabapentin, and oxycodone as needed Plan 09/02: declined transfer to a tertiary facility. She changed his CODE STATUS to DNR/DNI. If his condition declines, she will choose comfort measures. 09/03: Heparin drip resumed cautiously after speaking to . 09/05: Patient does not want feeding tube 09/07: Started Coumadin 09/10: Aspiration 09/13: Comfort care Decision has been made to pursue comfort directed measures. The patient wants to eat. He will have a p.o. diet with permissive aspiration for comfort. Admission and Anticipated Discharge Date Admission Date: August 23, 2023 Subjective Patient seen and examined, very lethargic Review of Systems Review of Systems: All systems reviewed are negative, apart from the ones contained in the history. Physical Exam Physical Exam: The patient is awake, alert and oriented 3, lethargic HEENT--PERRL, EOMI, mucous membranes and oropharynx mildly dry Neck--supple. No JVD. No bruits. Thyroid normal, trachea midline, no adenopathy. Heart--normal S1 and S2. No murmurs, rubs or gallops. Lungs--clear bilaterally, no respiratory distress, no accessory muscle use. Abdomen--normal bowel sounds and soft. Extremities--Bilateral lower extremity edema, poor tone Dermatologic--normal skin turgor, normal color, no abnormal lymph nodes, no rash. Neurologic--cranial nerves II through XII grossly intact. Rheumatologic--normal range of motion. Psychiatric--normal affect. Results & Data Results & Data Vital Signs (Past 12 Hours) Vital Signs Temp Pulse Resp BP Pulse Ox O2 Del Method 09/19/23 07:10 Room Air 09/19/23 07:10 98.2 F 82 20 142/78 H 98 Room Air PG Care Time/CCT Total # of Minutes Spent Total Time Spent with Patient: Total time spent is greater than 50% in coordination of care (as documented) at patient's floor/unit and/or counseling patient: Coding Level of Care Code 85049 SUB INP/OBS CARE 2/35MIN Diagnoses Cardiac arrest I46.9 Aspiration pneumonia of both lower lobes due to regurgitated food J69.0 Aspiration pneumonia type: due to regurgitated food Chronic anticoagulation Z79.01 Bacteremia R78.81 Acute metabolic encephalopathy G93.41 Acute CVA (cerebrovascular accident) I63.9 Atrial fibrillation, unspecified type I48.91 Atrial fibrillation type: unspecified Pressure injury of skin of right lower back, unspecified injury stage L89.139 Pressure injury location: lower back Pressure injury stage: unspecified pressure injury stage Laterality: right Respiratory failure J96.00 Chronicity: acute Respiratory failure complication: unspecified whether with hypoxia or hypercapnia Uncontrolled type 2 diabetes mellitus with hyperglycemia E11.65 Diabetes mellitus type: type 2 History of stroke Z86.73 Primary hypertension I10 Hypertension type: primary hypertension Chronic gout without tophus, unspecified cause, unspecified site [id number] Gout site: unspecified site Gout etiology: unspecified cause Chronicity: chronic Presence of tophus: without tophus BPH w urinary obs/LUTS N40.1; N13.8 Hypokalemia E87.6 History of aortic valve replacement with metallic valve Z95.4 Pure hypercholesterolemia E78.00 Hyperlipidemia type: pure hypercholesterolemia Peripheral polyneuropathy G62.9 Peripheral neuropathy type: polyneuropathy, unspecified Time Spent (min) 35 (2) Aspiration pneumonia of both lower lobes Aspiration pneumonia type: due to regurgitated food Qualified Code(s): J69.0 - Pneumonitis due to inhalation of food and vomit (7) Atrial fibrillation Atrial fibrillation type: unspecified Qualified Code(s): I48.91 - Unspecified atrial fibrillation (8) Decubitus ulcer Pressure injury location: lower back Pressure injury stage: unspecified pressure injury stage Laterality: right Qualified Code(s): L89.139 - Pressure ulcer of right lower back, unspecified stage (9) Respiratory failure Chronicity: acute Respiratory failure complication: unspecified whether with hypoxia or hypercapnia Qualified Code(s): J96.00 - Acute respiratory failure, unspecified whether with hypoxia or hypercapnia (10) Uncontrolled diabetes mellitus with hyperglycemia Diabetes mellitus type: type 2 Qualified Code(s): E11.65 - Type 2 diabetes mellitus with hyperglycemia (12) Hypertension Hypertension type: primary hypertension Qualified Code(s): I10 - Essential (primary) hypertension (13) Gout Gout site: unspecified site Gout etiology: unspecified cause Chronicity: chronic Presence of tophus: without tophus Qualified Code(s): [id number].[id number] - Chronic gout, unspecified, without tophus (tophi) (17) Hyperlipidemia Hyperlipidemia type: pure hypercholesterolemia Qualified Code(s): E78.00 - Pure hypercholesterolemia, unspecified (18) Peripheral neuropathy Peripheral neuropathy type: polyneuropathy, unspecified Qualified Code(s): G62.9 - Polyneuropathy, unspecified
--- NOTE | 2023-09-19 12:21 | Discharge Summary ---
Date of Service September 19, 2023 Admission HPI Per Admitting Provider The patient with a past medical history including uncontrolled diabetes mellitus, gout, hypertension, hyperlipidemia, GERD, peripheral neuropathy, BPH and chronic anticoagulation. He presented to the emergency department after [id number] cardiac arrest with ROSC obtained after about 5 to 7 minutes. Patient was intubated, and underwent workup in the emergency department including CT scan of head which was negative, CT scan of chest showed multifocal pneumonia at the bilateral bases,'s and CT scan abdomen and pelvis showed bladder wall thickening with Davis present. Temperature was noted to be 40.7 maximum, and patient was maintained on epinephrine drip for pressure support postcardiac arrest. Patient admitted to the intensive care unit for ongoing care Principal Diagnosis endocardiotis Discharge Exam The patient is awake, alert and oriented 3, lethargic HEENT--PERRL, EOMI, mucous membranes and oropharynx mildly dry Neck--supple. No JVD. No bruits. Thyroid normal, trachea midline, no adenopathy. Heart--normal S1 and S2. No murmurs, rubs or gallops. Lungs--clear bilaterally, no respiratory distress, no accessory muscle use. Abdomen--normal bowel sounds and soft. Extremities--Bilateral lower extremity edema, poor tone Dermatologic--normal skin turgor, normal color, no abnormal lymph nodes, no rash. Neurologic--cranial nerves II through XII grossly intact. Rheumatologic--normal range of motion. Psychiatric--normal affect. Discharge Data Allergies Allergy/AdvReac Type Severity Reaction Status Date / Time bee venom protein (honey bee) Allergy Unknown Verified 08/23/23 20:23 Iodinated Contrast Media Allergy Hives Verified 08/23/23 20:23 Penicillins Allergy Hives Verified 08/23/23 20:23 Consultations 08/23/23 20:03 ED Decision to Admit Stat 08/26/23 09:05 Consult Infectious Diseases Routine 08/31/23 11:03 Consult Urology Routine 09/03/23 12:09 Consult Palliative Care Routine Procedures Performed Operation Date: 08/31/23 10:25 Actual Procedures p Cystoscopy, Retrograde Pyelogram with Left Stent Placement(Not Applicable) - Oc Cohn MD Ordered Studies 08/23/23 19:07 CT head/brain wo con Stat 08/23/23 19:09 CT abd pelvis wo con Stat CT chest diagnostic wo con Stat 08/28/23 06:28 CT head/brain wo con Urgent 08/28/23 11:41 MRI Brain [MR brain wo/w con] Routine 08/28/23 16:50 US carotid doppler BI Routine 08/29/23 14:15 FL video swallow Routine 08/30/23 16:09 CT Abd and Pelvis [CT abd pelvis wo con] Stat CT chest diagnostic wo con Stat 08/30/23 18:55 CT angio abdomen pelvis w con Stat 08/31/23 FL retrograde includes kub Routine 09/05/23 20:26 CT Abd and Pelvis [CT abd pelvis wo con] Stat 09/11/23 22:34 CT chest diagnostic wo con Stat Diabetes Follow up Diabetes Follow-up Needed for HgbA1c >9% Hospital Course (1) Cardiac arrest: First cardiac arrest was outside of the hospital. This was secondary to septic shock. Extubated on 08/24, off of pressors. Patient recovered from it and was transferred out of the ICU. Still on treatment for septicemia. Second cardiac arrest was on 08/29, secondary to hemorrhagic shock from retroperitoneal and intramuscular bleed. Anticoagulation was then held Patient received 2 units PRBC, protamine and FFP on 08/29, 2 more units PRBC on 08/30. 2 more units PRBC on 09/01. Hemoglobin stable Heparin drip started 09/03. Switched to Lovenox 09/10 as patient lost his IV site. No active bleed anywhere. Now on Coumadin since 09/07 on 09/13 INR was 1.7, 09/15 INR 2.2, 09/17 INR 2.3 Would try to maintain INR in the 2.5-2.8 range, need to balance embolic risk with hx of Aortic Mechanical Valve against episode of retroperitoneal bleed Goals of care has been changed to comfort directed measures. Call placed and discussed with by phone. Extensive discussion, many questions and concerns. she confirmed, no feeding tube on 09/14 and again 09/15 (2) Aspiration pneumonia of both lower lobes: Suspected aspiration pneumonia in both lower lobes on admission but repeat chest x-ray was clear. CXR 09/15 - [facility] speech therapy following as he did aspirate at the bedside of thin liquids with water on 08/27 in the setting of newly diagnosed acute strokes He was on IV Clindamycin for aspiration PNA, started on 09/11, portable CXR done 09/15 with no airspace opacities seen, thus stopped Clinda based on results On the night of 09/10, the patient aspirated. Had increased oxygen demands. After suctioning, oxygen requirements improved. Was then on clindamycin, currently no evidence of active PNA and thus Clinda was stopped Palliative care met with the patient and spoke to his . Decision has been made to proceed towards comfort directed measures. The patient wants to eat. He has been offered p.o. diet with permissive aspiration for comfort. The patient does not want a feeding tube. was very clear that this did not mean withdrawal of care and she wishes him to continue receiving IV abx and treatment for his extensive decubitus (3) Chronic anticoagulation: With Coumadin. He has a mechanical valve which was placed in 2011 and target INR is 2.5-3.5 INR was subtherapeutic at 2 on 08/29 and thus the patient was started on Lovenox bridge. He then had a retroperitoneal hematoma leading to hemorrhagic shock and cardiac arrest. Dilemma with anticoagulation Without anticoagulation, mechanical valves will clot With anticoagulation, recently had internal bleeding leading to cardiac arrest. Resuming anticoagulation carries bleeding risk. Hemoglobin has been stable. Dr West spoke to and started him on heparin drip on 09/03, since stopped. Hemoglobin stable on the heparin drip changed CODE STATUS to DNR/DNI 09/02 after a lengthy discussion was held on the phone Continue Coumadin for the time being. is aware that there is a risk of further bleeding if he has therapeutic coumdin dosing, but if he is not therapeutic there is essentially a 100% chance he will have further strokes. (4) Bacteremia: With septicemia and septic shock-febrile, with leukocytosis, septic shock and PEA arrest on arrival Aerococcus viridans and Proteus isolated in blood cultures. There is also coagulase-negative Staphylococcus which is likely a contaminant. His urine culture also grew Proteus initially and again on 08/27 Aerococcus is also most commonly a organism as per ID. Urine is most likely source but there is also a sacral wound. Sacral wound growing Pseudomonas and Cate, likely colonization Appreciate ID consultation DEO is indicated given multiple embolic appearing strokes-could be septic emboli. DEO was being planned 08/29. However the patient went into cardiac arrest and the procedure was postponed. Currently the patient is on ceftriaxone, vancomycin per ID recommendations Repeat blood cultures on 08/25, 08/27 and 08/29 remain no growth to date Repeat urine culture on 08/27 with Proteus despite ceftriaxone Urology did cystoscopy and left ureteral stent placement 08/30 Cardiology saw him regarding DEO. We decided against DEO as it would not be decisive. Even if the DEO was negative, there is a strong chance that he did have septic embolization leading to his strokes previously. Moreover his TTE from 08/28 and 09/11 showed a mobile echodensity involving the aortic valve which may represent a vegetation. We decided to complete 6 weeks of IV antibiotics, assuming that this is endocarditis. Now with comfort directed measures, the plan to continue 6 weeks of antibiotics will need to be revisited with the family. Discussed with , she wants abx to continue, does not want withdrawal of care, wants pt to be allowed to eat and if this requires placement on comfort care, that would be her preference. Continue vancomycin for coverage for the Aerococcus started on 08/22 Continue ceftriaxone for Proteus started on 08/22 timing of stopping of abx will have to be decided post dc, but to go until 10/[address] Cristina Cartwright, Infectious Disease, recommended follow up with outpt ID specialist to determine optimal care post 6 weeks. Follow CBC, CMP, INR q2-3 days as per preference (5) Acute metabolic encephalopathy: Started around 08/25 as per patient's but worsened overnight on 08/26 and 08/27 with increased weakness, decreased responsiveness, mostly nonverbal Lactate elevated but otherwise procalcitonin trending downward, renal failure is resolved, some hypokalemia but not severe, sepsis is improving, afebrile Initially thought could be withdrawal from not receiving home Lyrica, gabapentin, or oxycodone CT head negative, but MRI brain on 08/27 showed multiple acute strokes (most likely most likely embolic)-likely culprit, see #6 Treating strokes Continue antibiotic therapy for bacteremia (6) Acute CVA (cerebrovascular accident): Brain MRI ordered on 08/27 due to ongoing expressive aphasia and metabolic encephalopathy, found multiple acute strokes-2 subcentimeter in right frontal and parietal lobes, 2 additional questionable punctate acute infarcts in left occipital and left cerebellar hemisphere He was only off of anticoagulation for 1-2 days at the most during this hospitalization after his heparin drip was discontinued for sacral wound bleeding-heparin drip was resumed but due to compatibility issues and poor IV access, was switched to Lovenox SQ 1 mg/kg twice daily. Seems less likely to be cardioembolic from clot, however could be septic emboli from endocarditis Could be from CPR/resuscitation and aortic arch plaque rupture? Dysphagia improved and right-sided weakness was improving. He had a video swallow on 08/28-able to advance diet to mildly thickened liquids and pured food Held statin due to daptomycin therapy, since stopped, but whether resumption of Atorvastatin would be beneficial is unclear. Will resume Atorvastatin Speech therapy consulted again after the second cardiac arrest Carotid Dopplers negative Continue neuro checks and stroke scale Lipid panel with very low cholesterol, hemoglobin A1c severely elevated at 11.0%-he is not on any diabetes medications currently and glu remains in the 91- 126 range (less than expected with a1c of 11%) Neurology consult placed-thinks strokes due to sepsis, thinks that aspirin is not necessary Now comfort care. (7) Atrial fibrillation: Developed August 25 p.m. and is new onset for patient Heparin drip was started but subsequently discontinued due to bleeding from the freshly debrided sacral decubitus. Was switched to therapeutic Lovenox He was treated for Coumadin toxicity with parenteral vitamin K on August 25, and INR was subtherapeutic Coumadin 7.5 mg was administered x 1 on 08/26 but then held due to NPO status--> resumed 08/29 as now able to take po Was started on Lovenox SQ 100 Mg every 12 hours for bridging On 08/29, had hemorrhagic shock leading to PEA arrest All anticoagulation was held due to retroperitoneal bleed and hemorrhagic shock. Resumed heparin drip 09/03 without bolus. Coumadin started 09/07. Switched from heparin drip to Lovenox 09/10 because the patient lost IV site. Discontinued Lovenox today 09/13 is comfort care. Continue Coumadin for the time being. Now on metoprolol 25 mg p.o. twice daily Off telemetry for past 2 days Currently, as of past 72 hrs, he remains in NSR, off telemetry (8) Decubitus ulcer: Debrided on August 25. Some minor bleeding occurred with heparin drip on August 25 and heparin drip was placed on hold and then was put back on anticoagulation. Was in hemorrhagic shock due to retroperitoneal bleed. All anticoagulation was on hold, now coumadin resumed Continue local care. Appreciate general surgery consultation and recommendations-appreciate bedside debridement Appears blackened in color on 08/29 but Surgeon used silver nitrate to treat the bleeding Wound cx growing Pseudomonas and Cate. Likely to be colonization Wound care on board Pain control, pt receiving Dilaudid. Plan is for dc to SNF, spoke to CM, in process of arranging, stopped dilaudid and plan oxy prn (9) Respiratory failure: Acute hypoxic respiratory failure. He was extubated on the morning of August 24. Resolved. Reintubated as part of code on 08/29. Now extubated 08/31. (10) Uncontrolled diabetes mellitus with hyperglycemia: Type 2 diabetes. His hemoglobin A1c is severely elevated at 11.0% Patient's reports that he was started on Lantus 60 units at bedtime but she only gave it to him once and he became significantly hypoglycemic and delirious and she has been fearful to give it ever since. She does give him occasional NovoLog during the day with meals when his blood sugar is elevated Currently on sliding scale coverage and basal insulin therapy with minimal doses as he has been mostly n.p.o Appreciate peer educator counseling. Diabetes counselor concerned about poor oral intake. Per , he does not like the pured diet and thus is not eating enough. Off hypoglycemic agents. 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 On amlodipine 10 and metoprolol 25. Resumed Lasix 20 mg q. other day. May continue for the time being. Now that comfort care, may consider discontinuing some of these medications. (13) Gout: allopurinol resumed (14) BPH w urinary obs/LUTS: Davis catheter in place. Will need to continue because of significant decubitus ulcer (15) Hypokalemia: resolved (16) History of aortic valve replacement with metallic valve: Noted, also with repair of aortic aneurysm at that time. Valve was replaced 2010 with Bernabe-Shiley valve (17) Hyperlipidemia: statin will be resumed (18) Peripheral neuropathy: With chronic pain, takes pregabalin, gabapentin, and oxycodone as needed Plan 09/02: declined transfer to a tertiary facility. She changed his CODE STATUS to DNR/DNI. If his condition declines, she will choose comfort measures. 09/03: Heparin drip resumed cautiously after speaking to . 09/05: Patient does not want feeding tube 09/07: Started Coumadin 09/10: Aspiration 09/13: Comfort care Decision has been made to pursue comfort directed measures. The patient wants to eat. He will have a p.o. diet with permissive aspiration for comfort. Total Time Total Time Spent Total Time Spent (In Minutes): 35 Discharge Plan Discharge Items Patient Disposition: Transfer Nursing Home Fac Reason For Visit: CARDIAC ARREST, B/L PNEUMONIA, SHOCK Discharge Diagnosis: cardiac arrest Activity: Resume your previous activity Non-emergency contact: Primary Care Provider Call non-emergency contact if: you have any medication questions Follow-up/Referrals: Chris Pack D.O. [Primary Care Provider] - Diet: Regular Addtl Attending Provider Instructions: please follow up with your regular PCP Addtl [employer] Supervisor Provider Instructions: DIABETES PRESCRIPTIONS NEEDED AT DISCHARGE: 1.) Toujeo Pen. 2.) Novolog Flexpen. 3.) Pen Needle 32 gauge 5/32"- to inject 4x/day. 4.) OneTouch Ultra2 Meter. 5.) OneTouch Ultra Test Strips- to check 4x/day. (Must include testing frequency for coverage) 6.) OneTouch Delica Lancets- to check 4x/day. (Must include testing frequency for coverage) Pending Studies at Discharge: No Stand-Alone Forms: [facility] [employer], Medications to Prevent Stroke Skilled Items Patient informed of condition?: Yes DNR: Yes Discharge Level of Care: Skilled Communicable Disease: No Discharge Prognosis: Stable Lines: PICC Urinary Catheter: Yes Medications and DC Order Prescriptions: New insulin glargine U-300 conc [Toujeo Max U-300 SoloStar] 300 unit/mL (3 mL) insulin pen 30 unit subcut DAILY Qty: 6 0RF insulin aspart U-100 [Novolog FlexPen U-100 Insulin] 100 unit/mL (3 mL) insulin pen 1 sliding scale dose subcut 4XD Qty: 15 0RF (DME) pen needle, diabetic 32 gauge x 5/32" needle See Rx Instructions .Route Qty: 100 0RF Rx Instructions: test 4x/day (DME) blood-glucose meter [OneTouch Ultra2 Meter] Misc See Rx Instructions .Route Qty: 1 0RF Rx Instructions: test 4x/day (DME) OneTouch Ultra Test Strip See Rx Instructions .Route Qty: 50 0RF Rx Instructions: test 4x/day (DME) lancets [OneTouch Delica Plus Lancet] 30 gauge misc See Rx Instructions .Route Qty: 100 0RF Rx Instructions: test 4x/day vancomycin in 0.9 % sodium chl 1.5 gram/250 mL solution 1 g IV Q24H ceftriaxone 2 gram recon soln 2 g IV DAILY Qty: 25 0RF Continued carvedilol 25 mg tablet 25 mg PO BID allopurinol 100 mg tablet 100 mg PO QAM amlodipine 10 mg tablet 10 mg PO QAM furosemide 40 mg tablet 20 mg PO Q OTHER DAY atorvastatin 10 mg tablet 10 mg PO HS tamsulosin 0.4 mg capsule 0.4 mg PO QAM warfarin 5 mg tablet 5 mg PO DAILY gabapentin 300 mg capsule 300 mg PO TID warfarin 1 mg tablet 1 mg PO DAILY pregabalin 150 mg capsule 150 mg PO BID famotidine 40 mg tablet 40 mg PO DAILYBB clonidine HCl 0.2 mg tablet 0.2 mg PO TID montelukast 10 mg tablet 10 mg PO DAILY aspirin [Aspirin Childrens] 81 mg Tablet,Chewable 81 mg PO DAILY oxycodone 15 mg tablet 15 mg PO Q4 PRN (Reason: Severe Pain (Scale Score 7-10)) Discharge Orders: Discharge Order (Routine); Ordered 09/19/23 Ordered By: Scout Paige Admission Data Admit Date/Time: 08/23/23 20:51 Attending Provider: Scout Paige Admit Provider: Leobardo Sidhu Primary Care Provider: Chris Pack Other Providers: [place]; [place]; Leobardo Sidhu; Catherine Prakash Coding Level of Care Code 75603 INP/OBS DISCH >30 MIN Diagnoses Cardiac arrest I46.9 Aspiration pneumonia of both lower lobes due to regurgitated food J69.0 Aspiration pneumonia type: due to regurgitated food Chronic anticoagulation Z79.01 Bacteremia R78.81 Acute metabolic encephalopathy G93.41 Acute CVA (cerebrovascular accident) I63.9 Atrial fibrillation, unspecified type I48.91 Atrial fibrillation type: unspecified Pressure injury of skin of right lower back, unspecified injury stage L89.139 Pressure injury location: lower back Pressure injury stage: unspecified pressure injury stage Laterality: right Respiratory failure J96.00 Chronicity: acute Respiratory failure complication: unspecified whether with hypoxia or hypercapnia Uncontrolled type 2 diabetes mellitus with hyperglycemia E11.65 Diabetes mellitus type: type 2 History of stroke Z86.73 Primary hypertension I10 Hypertension type: primary hypertension Chronic gout without tophus, unspecified cause, unspecified site [id number] Gout site: unspecified site Gout etiology: unspecified cause Chronicity: chronic Presence of tophus: without tophus BPH w urinary obs/LUTS N40.1; N13.8 Hypokalemia E87.6 History of aortic valve replacement with metallic valve Z95.4 Pure hypercholesterolemia E78.00 Hyperlipidemia type: pure hypercholesterolemia Peripheral polyneuropathy G62.9 Peripheral neuropathy type: polyneuropathy, unspecified Time Spent (min) 35
[2023-09-21] MEDS ORDERED: VANCOMYCIN LEVEL ONE (04:30)
== END 2023-09-19 18:20 | DRG 853 ==
LOC: ED 18:47 → SUATTDRO 20:51 → 1E 20:51 → 2S 08-26 19:01 → 1E 08-30 14:28 → 2E 09-03 13:03 → 3W 09-14 18:29